=== PATIENT | male | born 1960 | race Caucasian/White ===

== ENCOUNTER 2017-03-10 23:13 | Inpatient (IN) ==
--- OUTSIDE RECORDS SUMMARY | 2017-03-10 23:32 | External Medical Summary ---
:1960 Author Name GENERATED, SYSTEM Care Team Providers Name Role Phone UNASSIGNED DOCTOR MD DON DOCTOR Primary Care Provider [phone] Reason For Visit Reason for Visit from 08/12/2015 7:41 PM:Pt Stated Reason for Adm : injectionReason for Visit from 07/26/2015 7:45 PM:Pt Stated Reason for Adm : Lovenox injection Chief Complaint PE Social History Functional Status Functional Status from 08/14/2015 7:29 PM:LOC : AlertOriented To : Person,Place, Time,EventFunctional Status from 08/14/2015 7:53 AM:LOC : AlertOriented To : Person,Place,Time,EventFunctional Status from 08/13/2015 7:30 PM:LOC : AlertOriented To : Person,Place,Time,EventFunctional Status from 08/13/2015 8:14 AM:LOC : AlertOriented To : Person,Place,TimeFunctional Status from 08/12/2015 7: 45 PM:LOC : AlertOriented To : Person,Place,Time,EventFunctional Status from 7:41 PM:LOC : AlertOriented To : Person,Place,Time,EventFunctional Status from 08/12/2015 7:56 AM:LOC : AlertOriented To : Person,Place,Time, EventFunctional Status from 08/11/2015 7:15 PM:LOC : AlertOriented To : Person, Place,Time,EventFunctional Status from 08/11/2015 7:56 AM:LOC : AlertOriented To : Person,Place,TimeFunctional Status from 08/10/2015 7:35 PM:LOC : AlertOriented To : Person,Place,Time,EventFunctional Status from 08/10/2015 7:50 AM:LOC : AlertOriented To : Person,Place,TimeFunctional Status from 08/09/2015 7:30 PM: LOC : AlertOriented To : Person,Place,Time,EventFunctional Status from 2015 7:54 AM:LOC : AlertOriented To : Person,Place,TimeFunctional Status from 7:44 PM:LOC : AlertOriented To : Person,Place,Time,EventFunctional Status from 08/08/2015 7:52 AM:LOC : AlertOriented To : Person,Place,Time, EventFunctional Status from 08/07/2015 8:01 PM:LOC : AlertOriented To : Person, Place,Time,EventFunctional Status from 08/07/2015 8:02 AM:LOC : AlertOriented To : Person,Place,Time,EventFunctional Status from 08/06/2015 7:30 PM:LOC : AlertOriented To : Person,Place,Time,EventFunctional Status from 08/06/2015 7:56 AM:LOC : AlertOriented To : Person,Place,TimeFunctional Status from 08/05/2015 7: 40 PM:LOC : AlertOriented To : Person,Place,Time,EventFunctional Status from 8:04 AM:LOC : AlertOriented To : Person,Place,TimeFunctional Status from 08/04/2015 7:39 PM:LOC : AlertOriented To : Person,Place,Time, EventFunctional Status from 08/04/2015 7:58 AM:LOC : AlertOriented To : Person, Place,TimeFunctional Status from 08/03/2015 7:27 PM:LOC : AlertOriented To : Person,Place,Time,EventFunctional Status from 08/03/2015 8:03 AM:LOC : AlertOriented To : Person,Place,Time,EventFunctional Status from 08/02/2015 7:45 PM:LOC : AlertOriented To : Person,Place,Time,EventFunctional Status from 2015 7:58 AM:LOC : AlertOriented To : Person,Place,Time,EventFunctional Status from 08/01/2015 7:35 PM:LOC : AlertOriented To : Person,Place,Time, EventFunctional Status from 08/01/2015 7:56 AM:LOC : AlertOriented To : Person, Place,TimeFunctional Status from 07/31/2015 7:48 PM:LOC : AlertOriented To : Person,Place,Time,EventFunctional Status from 07/31/2015 7:58 AM:LOC : AlertOriented To : Person,Place,TimeFunctional Status from 07/30/2015 7:45 PM: LOC : AlertOriented To : Person,Place,Time,EventFunctional Status from 2015 7:55 AM:LOC : AlertOriented To : Person,Place,TimeFunctional Status from 7:55 AM:LOC : AlertOriented To : Person,Place,Time,EventFunctional Status from 07/28/2015 7:38 PM:LOC : AlertOriented To : Person,Place,Time, EventFunctional Status from 07/28/2015 7:59 AM:LOC : AlertOriented To : Person, Place,Time,EventFunctional Status from 07/27/2015 7:44 PM:LOC : AlertOriented To : Person,Place,Time,EventFunctional Status from 07/27/2015 7:50 AM:LOC : AlertOriented To : Person,Place,TimeFunctional Status from 07/26/2015 7:45 PM: LOC : AlertOriented To : Person,Place,Time,Event Vital Signs Hospital Vital Signs from 08/14/2015 7:29 PM:Height : 5/10 ft,inTemperature : 97.8 FPulse : 91Respirations : 18BP : 135/73Hospital Vital Signs from 08/14/2015 7:54 AM:Height : 5/10 ft,inTemperature : 97.6 FPulse : 75Respirations : 16BP : 116/69Hospital Vital Signs from 08/13/2015 7:30 PM:Height : 5/10 ft, inTemperature : 96.7 FPulse : 102Respirations : 18BP : 140/77Hospital Vital Signs from 08/13/2015 8:14 AM:Height : 5/10 ft,inTemperature : 97.5 FPulse : 86Respirations : 18BP : 119/80Hospital Vital Signs from 08/12/2015 7:41 PM: Weight : 175/ lbs,ozHeight : 5/10 ft,inHospital Vital Signs from 08/12/2015 7:38 PM:Height : 5/10 ft,inTemperature : 98.1 FPulse : 79Respirations : 20BP : 127/ 77Hospital Vital Signs from 08/12/2015 7:57 AM:Height : 5/10 ft,inTemperature : 97.3 FPulse : 70Respirations : 18BP : 111/75Hospital Vital Signs from 08/11/2015 7:15 PM:Height : 5/10 ft,inPulse : 99Respirations : 18BP : 121/79Hospital Vital Signs from 08/11/2015 7:56 AM:Height : 5/10 ft,inTemperature : 97.8 FPulse : 66Respirations : 18BP : 117/75Hospital Vital Signs from 08/10/2015 7:35 PM: Height : 5/10 ft,inTemperature : 98.5 FPulse : 82Respirations : 18BP : 116/ 76Hospital Vital Signs from 08/10/2015 7:52 AM:Height : 5/10 ft,inTemperature : 97.3 FPulse : 65Respirations : 18BP : 135/81Hospital Vital Signs from 08/09/2015 7:36 PM:Height : 5/10 ft,inTemperature : 96.8 FPulse : 92Respirations : 18BP : 129/72Hospital Vital Signs from 08/09/2015 7:54 AM:Height : 5/10 ft, inTemperature : 98.3 FPulse : 78Respirations : 18BP : 115/72Hospital Vital Signs from 08/08/2015 7:47 PM:Height : 5/10 ft,inTemperature : 98.3 FPulse : 85Respirations : 16BP : 109/77Hospital Vital Signs from 08/08/2015 7:52 AM: Height : 5/10 ft,inTemperature : 96.9 FPulse : 80Respirations : 18BP : 114/ 69Hospital Vital Signs from 08/07/2015 8:15 PM:Height : 5/10 ft,inTemperature : 98.2 FPulse : 92Respirations : 16BP : 114/64Hospital Vital Signs from 08/07/2015 8:02 AM:Height : 5/10 ft,inTemperature : 97.4 FPulse : 77Respirations : 18BP : 108/74Hospital Vital Signs from 08/06/2015 7:34 PM:Height : 5/10 ft, inTemperature : 98.0 FPulse : 99Respirations : 20BP : 136/82Hospital Vital Signs from 08/06/2015 7:56 AM:Height : 5/10 ft,inTemperature : 97.8 FPulse : 77Respirations : 18BP : 123/79Hospital Vital Signs from 08/05/2015 7:41 PM: Height : 5/10 ft,inTemperature : 96.7 FPulse : 88Respirations : 20BP : 139/ 73Hospital Vital Signs from 08/05/2015 8:04 AM:Height : 5/10 ft,inTemperature : 96.6 FPulse : 76Respirations : 18BP : 118/75Hospital Vital Signs from 08/04/2015 7:39 PM:Height : 5/10 ft,inTemperature : 97.2 FPulse : 94Respirations : 20BP : 136/85Hospital Vital Signs from 08/04/2015 7:57 AM:Height : 5/10 ft, inTemperature : 97.4 FPulse : 68Respirations : 18BP : 135/81Hospital Vital Signs from 08/03/2015 7:25 PM:Height : 5/10 ft,inTemperature : 97.9 FPulse : 90Respirations : 18BP : 116/75Hospital Vital Signs from 08/03/2015 8:04 AM: Height : 5/10 ft,inTemperature : 97.5 FPulse : 63Respirations : 18BP : 120/ 73Hospital Vital Signs from 08/02/2015 7:40 PM:Height : 5/10 ft,inTemperature : 97.9 FPulse : 91Respirations : 18BP : 126/75Hospital Vital Signs from 08/01/2015 7:35 PM:Height : 5/10 ft,inTemperature : 97.5 FPulse : 77Respirations : 18BP : 134/86Hospital Vital Signs from 08/01/2015 7:59 AM:Height : 5/10 ft, inTemperature : 97.4 FPulse : 70Respirations : 18BP : 140/79Hospital Vital Signs from 07/31/2015 7:49 PM:Height : 5/10 ft,inTemperature : 98.0 FPulse : 82Respirations : 18BP : 123/73Hospital Vital Signs from 07/31/2015 8:03 AM: Height : 5/10 ft,inTemperature : 97.9 FPulse : 77Respirations : 18BP : 131/ 74Hospital Vital Signs from 07/30/2015 7:45 PM:Height : 5/10 ft,inTemperature : 97.9 FPulse : 83Respirations : 18BP : 127/81Hospital Vital Signs from 07/30/2015 8:01 AM:Height : 5/10 ft,inTemperature : 97.1 FPulse : 64Respirations : 18BP : 119/74Hospital Vital Signs from 07/29/2015 7:41 PM:Height : 5/10 ft, inTemperature : 97.9 FPulse : 99Respirations : 18BP : 130/75Hospital Vital Signs from 07/29/2015 7:55 AM:Height : 5/10 ft,inTemperature : 97.2 FPulse : 67Respirations : 18BP : 129/85Hospital Vital Signs from 07/28/2015 7:38 PM: Height : 5/10 ft,inTemperature : 96.7 FPulse : 68Respirations : 18BP : 130/ 74Hospital Vital Signs from 07/28/2015 8:00 AM:Height : 5/10 ft,inTemperature : 97.2 FPulse : 87Respirations : 18BP : 127/82Hospital Vital Signs from 07/27/2015 7:50 PM:Height : 5/10 ft,inTemperature : 97.2 FPulse : 95Respirations : 20BP : 136/78Hospital Vital Signs from 07/27/2015 7:50 AM:Height : 5/10 ft, inTemperature : 97.1 FPulse : 87Respirations : 18BP : 134/82Hospital Vital Signs from 07/26/2015 7:45 PM:Weight : 83.9/ kgHeight : 5/10 ft,inHeight : 5/10 ft,inTemperature : 97.8 FPulse : 105Respirations : 18BP : 125/81 Results Problems Encounter Diagnosis No relevant problems exist. Additional Problems Acute Pain Comment:Problem resolved by [facility] upon Discharge, Status: Resolved.Deep Venous Thrombosis Comment:Problem resolved by [facility] upon Discharge, Status:Resolved.Fall Risk Comment:Problem resolved by [facility] upon Discharge, Status:Resolved.Mobility Impairment Comment:Problem resolved by [facility] upon Discharge, Status:Resolved.Tobacco Use Comment :Problem resolved by [facility] upon Discharge, Status:Resolved. Encounters Encounter Diagnosis No relevant problems exist. Plan of Care Procedures No relevant procedures performed. Immunizations No immunizations administered or ordered. Hospital Course Hospital Discharge Instructions Allergies, Adverse Reactions, Alerts Penicillins causes Severe Hives. Onset 1967.No Latex Allergy.No IV Contrast Allergy. Medication Medication reconciliation has not been performed.
--- OUTSIDE RECORDS SUMMARY | 2017-03-10 23:32 | External Medical Summary | Summary of Care ---
:1960 Author Name Jcarlos Shelton, KELLIEP, ,, F Tristan Address Unavailable Unavailable , Care Team Providers Name Role Phone Cordell Villa Unavailable Unavailable Jcarlos Shelton, KELLIEP, ,, F Tristan Unavailable Unavailable Malu Rosales Unavailable Unavailable Unavailable Unavailable Unavailable Functional Status Functional Status Health Issues Name Dates Details Functional status health issues are not documented Status: Cognitive Status Health Issues Name Dates Details Cognitive status health issues are not documented Status: Problems Name Dates Details Cellulitis (682.9, L03.90) Status: Active Pneumonia (486, J18.9) Status: Active Dyspnea (786.09, R06.00) Status: Active Tachycardia (785.0, R00.0) Status: Active History of Creation Of Pericardial Window Status: Resolved Cough with sputum (786.2, R05) Status: Active PAF (paroxysmal atrial fibrillation) (427.31, I48.0) Status: Active Pulmonary embolism (415.19, I26.99) Status: Active History of Pericardial effusion (423.9, I31.3) Status: Resolved Screening for colon cancer (V76.51, Z12.11) Status: Active Dysphagia (787.20, R13.10) Status: Active Voice hoarseness (784.42, R49.0) Status: Active Esophagitis (530.10, K20.9) Status: Active Colon polyps (211.3, K63.5) Status: Active Pancreatic carcinoma (157.9, C25.9) Status: Active Nausea (787.02, R11.0) Status: Active Dehydration (276.51, E86.0) Status: Active Mass of stomach (537.9, K31.9) Status: Active Malignant neoplasm of upper lobe of left lung (162.3, C34.12) Status: Active 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.7, 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) Status: Active Cancer related pain (338.3, G89.3) Status: Active Medications Name Dates Details Metoprolol Tartrate 50 MG Oral Tablet TAKE ONE TABLET BY MOUTH TWICE A DAY ( MORNING AND AT BEDTIME) Quantity: 180 Refills: 3 Tin EricaCordell Start 09-Aug-2016 Active Folic Acid 1 MG Oral Tablet Take 1 tablet daily Quantity: 30 Refills: 5 Jcarlos Shelton, KELLIEP, , , Tristan F Start 28-Dec-2015 Active Dexamethasone 4 MG Oral Tablet one tab po bid day before and day after Alimta treatment Quantity: 30 Refills: 1 Jcarlos Shelton, KELLIEP, , , Tristan F Start 28-Dec-2015 Active Prochlorperazine Maleate 10 MG Oral Tablet 1 tab every 6-8 hours as needed for mild nausea and vomiting Quantity: 30 Refills: 3 Jcarlos Shelton, HEBERT, , , Tristan F Start 29-Dec-2015 Active Ondansetron HCl - 8 MG Oral Tablet 1 tab every 6-8 hours as needed for nausea Quantity: 20 Refills: 3 KELLIE Garber M.D.P, , , Tristan F Start 29-Dec-2015 Active Nitroglycerin 0.4 MG Sublingual Tablet Sublingual PLACE 1 TABLET UNDER THE TONGUE EVERY 5 MINUTES FOR UP TO 3 DOSES NEEDED FOR CHEST PAIN.CALL 911 IF PAIN PERSISTS. Refills: 0 Start 17-Feb-2016 Active Warfarin Sodium 7.5 MG Oral Tablet TAKE 1 TABLET DAILY. Refills: 0 Start 17-Feb-2016 Active PredniSONE 10 MG Oral Tablet TAKE 1 TABLET DAILY. Quantity: 30 Refills: 1 Jcarlos Shelton FACP, , , Tristan F Start 06-Sep-2016 Active OxyCODONE HCl - 15 MG Oral Tablet TAKE 1 TABLET EVERY 4 HOURS NEEDED FOR PAIN. Quantity: 90 Refills: 0 Jcarlos Shelton, KELLIEP, , , Tristan F Start Active Allergies and Adverse Reactions Name Dates Details Penicillins (Allergy) Status: Active Past Medical History Name Dates Details History of Pericardial effusion (423.9, I31.3) Status: Resolved Procedures Procedure Dates Details History of Creation Of Pericardial Window CBC w/ Auto Diff 7150 Ordered: Comprehensive Metabolic Panel 1212 Ordered: CBC w/ Auto Diff 7150 Ordered: CBC w/ Auto Diff 7150 Ordered: Comprehensive Metabolic Panel 1212 Ordered: Immunization Name Dates Details Immunizations not documented Family History Sister Name Dates Details Family history of malignant neoplasm of breast (V16.3, Z80.3) Status: Active Social History Name Dates Details - Status: Smoking Status Name Dates Details Current every day smoker Vital Signs Date Test Result Details 10:45 Temperature 97.9 f Status: Comments: Method: Heart Rate 69 /min Status: Comments: Location: ; Weight 157 lb Status: Physical Findings 99 Status: Comments: O2 Saturation Body Mass Index Calculated 21.29 kg/m2 Status: Body Surface Area Calculated 1.92 m2 Status: 11:39 BP Systolic 124 mm[Hg] Status: Comments: Location: ; Position: BP Diastolic 76 mm[Hg] Status: Comments: Location: ; Position: Temperature 97.7 f Status: Comments: Method: Heart Rate 65 /min Status: Comments: Location: ; Weight 162 lb Status: Body Mass Index Calculated 21.97 kg/m2 Status: Body Surface Area Calculated 1.95 m2 Status: 11:31 BP Systolic 104 mm[Hg] Status: Comments: Location: ; Position: BP Diastolic 69 mm[Hg] Status: Comments: Location: ; Position: Temperature 97.7 f Status: Comments: Method: Heart Rate 64 /min Status: Comments: Location: ; Weight 162 lb Status: Body Mass Index Calculated 21.97 kg/m2 Status: Body Surface Area Calculated 1.95 m2 Status: 09:36 BP Systolic 102 mm[Hg] Status: BP Diastolic 68 mm[Hg] Status: Temperature 98.1 f Status: Comments: Method: Heart Rate 68 /min Status: Comments: Location: ; Results Date Description Value Details 08:34 CBC w/ Auto Diff 7150 WBC 8.7 K/uL Range: 4.5-11.0 RBC 4.90 mil/uL Range: 4.20-5.40 HGB 14.6 g/dL Range: 14.0-18.0 HCT 43.6 % Range: 42.0-53.0 MCV 88.9 fL Range: 80.0-99.0 MCH 29.7 pg Range: 27.3-32.5 MCHC 33.4 % Range: 32.0-36.0 RDW 16.4 % (Above high threshold) Range: 11.6-14.8 PLATELETS 266 K/uL Range: 150-400 MPV 7.2 fL Range: 6.0-11.0 %NEUTRO 73.9 % Range: 37.0-80.0 %LYMPHS 15.1 % Range: 13.0-50.0 %MONO 6.2 % Range: 0.0-12.0 %EOS 2.1 % Range: 0.0-7.0 %BASO 0.6 % Range: 0.0-2.5 %GIOVANNI 2.2 % Range: 0.0-5.0 NEUTRO 6.5 K/uL Range: 2.0-6.9 LYMPHS 1.3 K/uL Range: 0.6-3.4 MONOS 0.5 K/uL Range: 0.0-0.9 EOS 0.2 K/uL Range: 0.0-0.7 BASO 0.1 K/uL Range: 0.0-0.2 08:52 MAGNESIUM 1260 MAGNESIUM 1.9 mg/dL Range: 1.8-2.4 08:52 AMYLASE 1250 AMYLASE 51 U/L Range: 25-115 08:52 Lipase 1275 LIPASE 118 U/L Range: 73-393 08:52 Comprehensive Metabolic Panel 1212 SODIUM 138 mmol/L Range: 133-144 POTASSIUM 3.6 mmol/L Range: 3.5-5.1 CHLORIDE 104 mmol/L Range: 98-110 CARBON DIOXIDE 26.4 mmol/L Range: 23.0-33.0 ANION GAP 8 mmol/L Range: 6-16 BUN 13 mg/dL Range: 7-18 CREATININE, SERUM 0.97 mg/dL Range: 0.70-1.30 BUN:CREATININE RATIO 13 EST GFR, >60 ml/min Range: >60 EST GFR, NON-AFR POLISH >60 ml/min Range: >60 Comments: EST GFR is reported in ml/min per 1.73 m2 of body surface area. ----- GLUCOSE 105 mg/dL (Above high Range: 70-100 threshold) ALK PHOSPHATASE 72 U/L Range: 46-116 TOTAL BILIRUBIN 0.40 mg/dL Range: 0.20-1.00 AST 26 U/L Range: 8-35 ALT 14 U/L (Below low Range: 16-63 threshold) ALBUMIN 3.0 g/dL (Below low Range: 3.4-5.0 threshold) TOTAL PROTEIN 7.4 g/dL Range: 6.4-8.2 A/G RATIO 0.7 units (Below low Range: 1.0-1.8 threshold) CALCIUM 8.8 mg/dL Range: 8.5-10.1 10:03 FREE T4 3604 FREE T4 1.18 ng/dL Range: 0.80-1.67 10:03 THYROID STIM. HORMONE 3602 THYROID STIM. HORMONE 3.730 uIU/mL Range: 0.550-4.780 Comments: No established reference ranges for infants and children &lt ;2 years of age----- 14:01 CBC w/ Auto Diff 7150 Comments: Manual differential indicated. WBC 11.2 K/uL (Above high threshold) Range: 4.5-11.0 RBC 5.02 mil/uL Range: 4.20-5.40 HGB 14.7 g/dL Range: 14.0-18.0 HCT 44.5 % Range: 42.0-53.0 MCV 88.6 fL Range: 80.0-99.0 MCH 29.2 pg Range: 27.3-32.5 MCHC 33.0 % Range: 32.0-36.0 RDW 16.3 % (Above high threshold) Range: 11.6-14.8 PLATELETS 347 K/uL Range: 150-400 MPV 7.0 fL Range: 6.0-11.0 14:07 Manual Differential 7400 SEGS 83 % (Above high threshold) Range: 37-80 BANDS 0 % Range: 0-7 LYMPH 15 % Range: 13-50 MONO 2 % Range: 0-12 EOSIN 0 % Range: 0-7 BASO 0 % Range: 0-3 CODY LYMPH 0 % Range: 0-0 META 0 % Range: 0-0 MYELO 0 % Range: 0-0 PRO 0 % Range: 0-0 BLAST 0 % Range: 0-0 NUC RBC 0 /100 WBC Range: 0-0 SMUDGE 0 /100 WBC PLATELET Adequate Range: Adequate ANISO Slight 13:08 CT NECK/CHEST/ABD/PEL WITH ORAL Comments: Exam Date: 09:56Dictation Date: 10/06/2016 13:08 AND IV CONTRAST XC N/C/AB/PEL 45 MIN 10:51 CBC w/ Auto Diff 7150 Comments: Manual differential indicated. WBC 11.9 K/uL (Above high threshold) Range: 4.5-11.0 RBC 4.92 mil/uL Range: 4.20-5.40 HGB 14.5 g/dL Range: 14.0-18.0 HCT 43.6 % Range: 42.0-53.0 MCV 88.5 fL Range: 80.0-99.0 MCH 29.4 pg Range: 27.3-32.5 MCHC 33.2 % Range: 32.0-36.0 RDW 16.3 % (Above high threshold) Range: 11.6-14.8 PLATELETS 278 K/uL Range: 150-400 MPV 7.0 fL Range: 6.0-11.0 11:13 AMYLASE 1250 AMYLASE 49 U/L Range: 25-115 11:13 Comprehensive Metabolic Panel 1212 SODIUM 139 mmol/L Range: 133-144 POTASSIUM 4.0 mmol/L Range: 3.5-5.1 CHLORIDE 104 mmol/L Range: 98-110 CARBON DIOXIDE 28.3 mmol/L Range: 23.0-33.0 ANION GAP 7 mmol/L Range: 6-16 BUN 10 mg/dL Range: 7-18 CREATININE, SERUM 0.94 mg/dL Range: 0.70-1.30 BUN:CREATININE RATIO 11 EST GFR, >60 ml/min Range: >60 EST GFR, NON-AFR POLISH >60 ml/min Range: >60 Comments: EST GFR is reported in ml/min per 1.73 m2 of body surface area. ----- GLUCOSE 102 mg/dL (Above high Range: 70-100 threshold) ALK PHOSPHATASE 67 U/L Range: 46-116 TOTAL BILIRUBIN 0.50 mg/dL Range: 0.20-1.00 AST 17 U/L Range: 8-35 ALT 13 U/L (Below low Range: 16-63 threshold) ALBUMIN 3.0 g/dL (Below low Range: 3.4-5.0 threshold) TOTAL PROTEIN 7.1 g/dL Range: 6.4-8.2 A/G RATIO 0.7 units (Below low Range: 1.0-1.8 threshold) CALCIUM 9.2 mg/dL Range: 8.5-10.1 11:13 Lipase 1275 LIPASE 82 U/L Range: 73-393 11:17 Manual Differential 7400 SEGS 82 % (Above high threshold) Range: 37-80 BANDS 0 % Range: 0-7 LYMPH 10 % (Below low threshold) Range: 13-50 MONO 2 % Range: 0-12 EOSIN 2 % Range: 0-7 BASO 0 % Range: 0-3 CODY LYMPH 4 % (Above high threshold) Range: 0-0 META 0 % Range: 0-0 MYELO 0 % Range: 0-0 PRO 0 % Range: 0-0 BLAST 0 % Range: 0-0 NUC RBC 0 /100 WBC Range: 0-0 SMUDGE 0 /100 WBC PLATELET Adequate Range: Adequate ANISO Slight 11:38 FREE T4 3604 FREE T4 1.03 ng/dL Range: 0.80-1.67 11:38 THYROID STIM. HORMONE 3602 THYROID STIM. HORMONE 4.447 uIU/mL Range: 0.550-4.780 Comments: No established reference ranges for infants and children &lt ;2 years of age----- 10:25 CBC w/ Auto Diff 7150 Comments: Manual differential indicated. WBC 13.9 K/uL (Above high threshold) Range: 4.5-11.0 RBC 4.83 mil/uL Range: 4.20-5.40 HGB 14.0 g/dL Range: 14.0-18.0 HCT 42.4 % Range: 42.0-53.0 MCV 87.7 fL Range: 80.0-99.0 MCH 29.0 pg Range: 27.3-32.5 MCHC 33.1 % Range: 32.0-36.0 RDW 16.5 % (Above high threshold) Range: 11.6-14.8 PLATELETS 296 K/uL Range: 150-400 MPV 7.2 fL Range: 6.0-11.0 %EOS 0.7 % Range: 0.0-7.0 10:47 Manual Differential 7400 SEGS 93 % (Above high threshold) Range: 37-80 BANDS 0 % Range: 0-7 LYMPH 7 % (Below low threshold) Range: 13-50 MONO 0 % Range: 0-12 EOSIN 0 % Range: 0-7 BASO 0 % Range: 0-3 CODY LYMPH 0 % Range: 0-0 META 0 % Range: 0-0 MYELO 0 % Range: 0-0 PRO 0 % Range: 0-0 BLAST 0 % Range: 0-0 NUC RBC 0 /100 WBC Range: 0-0 SMUDGE 0 /100 WBC PLATELET Adequate Range: Adequate ANISO Slight [id number] 10:44 CBC w/ Auto Diff 7150 Comments: Manual differential indicated. WBC 4.4 K/uL (Below low threshold) Range: 4.5-11.0 RBC 4.55 mil/uL Range: 4.20-5.40 HGB 13.1 g/dL (Below low threshold) Range: 14.0-18.0 HCT 38.9 % (Below low threshold) Range: 42.0-53.0 MCV 85.5 fL Range: 80.0-99.0 MCH 28.8 pg Range: 27.3-32.5 MCHC 33.7 % Range: 32.0-36.0 RDW 16.1 % (Above high threshold) Range: 11.6-14.8 PLATELETS 248 K/uL Range: 150-400 MPV 7.8 fL Range: 6.0-11.0 %EOS 1.0 % Range: 0.0-7.0 10:51 Comprehensive Metabolic Panel 1212 SODIUM 138 mmol/L Range: 133-144 POTASSIUM 3.8 mmol/L Range: 3.5-5.1 CHLORIDE 103 mmol/L Range: 98-110 CARBON DIOXIDE 23.5 mmol/L Range: 23.0-33.0 ANION GAP 12 mmol/L Range: 6-16 BUN 16 mg/dL Range: 7-18 Comments: Variance from previous testing noted.----- CREATININE, SERUM 0.91 mg/dL Range: 0.70-1.30 BUN:CREATININE RATIO 18 EST GFR, >60 ml/min Range: >60 EST GFR, NON-AFR POLISH >60 ml/min Range: >60 Comments: EST GFR is reported in ml/min per 1.73 m2 of body surface area. ----- GLUCOSE 104 mg/dL (Above high Range: 70-100 threshold) ALK PHOSPHATASE 50 U/L Range: 46-116 TOTAL BILIRUBIN 0.80 mg/dL Range: 0.20-1.00 AST 20 U/L Range: 8-35 ALT 13 U/L (Below low Range: 16-63 threshold) ALBUMIN 2.9 g/dL (Below low Range: 3.4-5.0 threshold) TOTAL PROTEIN 6.9 g/dL Range: 6.4-8.2 A/G RATIO 0.7 units (Below low Range: 1.0-1.8 threshold) CALCIUM 8.9 mg/dL Range: 8.5-10.1 Plan of Care Name Dates Details Planned Observations CBC w/ Auto Diff 7150 On Intent Comprehensive Metabolic Panel 1212 On Intent Planned Goals not documented Planned Encounters Appointment; Provider: Poornima العلي M.D. On 19-Feb-2017 10:00 Appointment; Provider: Tristan Garber M.D.|FACP|Cat,KELLIEPMisti,HEBERT, On October-2016 11:30 Interventions Provided Labs/Procedures/ImagingCBC w/ Auto Diff 7150; Done: Oct 16 2016 10:05AMCBC w/ Auto Diff 7150; Done: Oct 23 2016 10:15AM Instructions Name Dates Details Instructions not documented Encounters Appointment; Tristan Garber M.D.|KELLIEP|Cat,KELLIEP|Cat,HEBERT, On Encounter Diagnosis: Problem not documented 10:15 Appointment; Tristan Garber M.D.|FACP|MTreva,FACP|Cat,FACP, On Encounter Diagnosis: Problem not documented 09:45 Appointment; Claire Tipton A.PShirleyRShirleyNShirley On 01-Sep-2016 Encounter Diagnosis: Problem not documented 10:15 Appointment; Claire Tipton A.PShirleyRShirleyNShirley On 25-Aug-2016 Encounter Diagnosis: Problem not documented 13:30 Appointment; Tristan Garber M.D.|FACP|MShirleyDShirley,FACP|Cat,FACP, On 24-Aug-2016 Encounter Diagnosis: Problem not documented 11:00 Appointment; Tristan Garber M.D.|FACP|M.D.,FACP|M.D.,FACP, On 27-Jul-2016 Encounter Diagnosis: Problem not documented 11:00 Appointment; Tristan Garber M.D.|FACP|M.D.,FACP|M.D.,FACP, On 18-Jul-2016 Encounter Diagnosis: Problem not documented 13:15 Appointment; Claudio Ritchie M.D. On 13-Jul-2016 Encounter Diagnosis: Problem not documented 11:30 Appointment; Caridad Kuhn On 13-Jul-2016 Encounter Diagnosis: Problem not documented 11:00 Appointment; Poornima العلي M.D. On 12-Jul-2016 Encounter Diagnosis: Problem not documented 11:30 Appointment; Tristan Garber M.D.|FACP|M.DShirley,FACP|M.D.,FACP, On 06-Jul-2016 Encounter Diagnosis: Problem not documented 15:15 Appointment; Tristan Garber M.D.|FACP|M.D.,FACP|M.D.,FACP, On 12-Jun-2016 Encounter Diagnosis: Problem not documented 15:00 Appointment; Tristan Garber M.D.|FACP|M.D.,FACP|M.D.,FACP, On 16-May-2016 Encounter Diagnosis: Problem not documented 11:00 Appointment; Tristan Garber M.D.|FACP|M.D.,FACP|M.D.,FACP, On 01-May-2016 Encounter Diagnosis: Problem not documented 13:30 Appointment; Tristan Garber M.D.|FACP|M.D.,FACP|M.D.,FACP, On 24-Apr-2016 Encounter Diagnosis: Problem not documented 13:00 Appointment; Tristan Garber M.D.|FACP|M.D.,FACP|M.D.,FACP, On 03-Apr-2016 Encounter Diagnosis: Problem not documented 16:00 Appointment; Tristan Garber M.D.|FACP|M.D.,FACP|M.D.,FACP, On 20-Mar-2016 Encounter Diagnosis: Problem not documented 16:00 Appointment; Tristan Garber M.D.|FACP|M.D.,FACP|M.DShirley,FACP, On 13-Mar-2016 Encounter Diagnosis: Problem not documented 09:30 Appointment; Sarkis Woods M.D. On 08-Mar-2016 Encounter Diagnosis: Problem not documented 09:00 Appointment; Tristan Garber M.D.|FACP|M.D.,FACP|M.DShirley,FACP, On 22-Feb-2016 Encounter Diagnosis: Problem not documented 14:15 Appointment; Poornima العلي M.D. On 21-Feb-2016 Encounter Diagnosis: Problem not documented 10:15 Appointment; Tristan Garber M.D.|FACP|M.D.,FACP|M.DShirley,FACP, On 01-Feb-2016 Encounter Diagnosis: Problem not documented 16:00 Appointment; Tristan Garber M.D.|FACP|M.DShirley,FACP|MShirleyDShirley,FACP, On 11-Jan-2016 Encounter Diagnosis: Problem not documented 10:15 Appointment; Tristan Garber M.D.|FACP|M.D.,FACP|M.D.,FACP, On 28-Dec-2015 Encounter Diagnosis: Problem not documented 09:15 Appointment; Tristan Garber M.D.|FACP|M.D.,FACP|M.D.,FACP, On 13-Dec-2015 Encounter Diagnosis: Problem not documented 13:15 Appointment; Tristan Garber M.D.|FACP|M.D.,FACP|M.DShirley,FACP, On Encounter Diagnosis: Problem not documented 09:00 Appointment; Tristan Garber M.D.|FACP|M.D.,FACP|M.D.,FACP, On Encounter Diagnosis: Problem not documented 11:00"
--- OUTSIDE RECORDS SUMMARY | 2017-03-10 23:33 | External Medical Summary | Summary of Care ---
:1960 Author Name Jcarlos Shelton, KELLIEP, ,, F Tristan Address Unavailable Unavailable , Care Team Providers Name Role Phone Jcarlos Shelton, HEBERT, ,, F Tristan Unavailable Unavailable aMlu Rosales Unavailable Unavailable Unavailable Unavailable Unavailable Functional [...] of Creation Of Pericardial Window Status: Resolved Dehydration (276.51, E86.0) Status: Active Cough with sputum (786.2, R05) Status: Active Malignant neoplasm of upper lobe of left lung (162.3, C34.12) Status: Active 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.7, C79.70) Status: Active PAF (paroxysmal atrial fibrillation) (427.31, I48.0) Status: Active Pulmonary embolism (415.19, I26.99) Status: Active History of Pericardial effusion (423.9, I31.3) Status: Resolved Screening for colon cancer (V76.51, Z12.11) Status: Active Dysphagia (787.20, R13.10) Status: Active Voice hoarseness (784.42, R49.0) Status: Active Mass of stomach (537.9, K31.9) Status: Active Esophagitis (530.10, K20.9) Status: Active Colon polyps (211.3, K63.5) Status: Active Medications Name Dates Details Metoprolol Tartrate 50 MG Oral Tablet TAKE 1 TABLET TWICE DAILY. Refills: 0 Start 28-Dec-2015 Active Folic Acid 1 MG Oral Tablet Take 1 tablet daily Quantity: 30 Refills: 5 Jcarlos Shelton, KELLIEP, , , Tristan F Start 28-Dec-2015 Active Dexamethasone 4 MG Oral Tablet one tab po bid day before and day after Alimta treatment Quantity: 30 Refills: 1 Jcarlos Cat, KELLIEP, , , Tristan F Start 28-Dec-2015 Active Prochlorperazine Maleate 10 MG Oral Tablet 1 tab every 6-8 hours as needed for mild nausea and vomiting Quantity: 30 Refills: 3 Jcarlos SheltonKELLIEP, , , Tristan F Start 29-Dec-2015 Active Ondansetron HCl - 8 MG Oral Tablet 1 tab every 6-8 hours as needed for nausea Quantity: 20 Refills: 3 Jcarlos Shelton, KELLIEP, , , Tristan F Start 29-Dec-2015 Active Nitroglycerin 0.4 MG Sublingual Tablet Sublingual PLACE 1 TABLET UNDER THE TONGUE EVERY 5 MINUTES FOR UP TO 3 DOSES NEEDED FOR CHEST PAIN.CALL 911 IF PAIN PERSISTS. Refills: 0 Start 17-Feb-2016 Active Warfarin Sodium 7.5 MG Oral Tablet TAKE 1 TABLET DAILY. Refills: 0 Start 17-Feb-2016 Active Allergies and Adverse Reactions Name Dates Details Penicillins (Allergy) Status: Active Past Medical History Name Dates Details History of Pericardial effusion (423.9, I31.3) Status: Resolved Procedures Procedure Dates Details History of Creation Of Pericardial Window CBC w/ Auto Diff 7150 Ordered: 06-Jul-2016 CBC w/ Auto Diff 7150 Ordered: 06-Jul-2016 Comprehensive Metabolic Panel 1212 Ordered: 06-Jul-2016 MAGNESIUM 1260 Ordered: 06-Jul-2016 AMYLASE 1250 Ordered: 06-Jul-2016 Lipase 1275 Ordered: 06-Jul-2016 FREE T4 3604 Ordered: 06-Jul-2016 THYROID STIM. HORMONE 3602 Ordered: 06-Jul-2016 CT CHEST/AB/PEL WITH ORAL AND IV CONTRAST Ordered: 06-Jul-2016 Immunization Name Dates Details Immunizations not documented Family History Sister Name Dates Details Family history of malignant neoplasm of breast (V16.3, Z80.3) Status: Active Social History Name Dates Details - Status: Smoking Status Name Dates Details Current every day smoker Vital Signs Date Test Result Details 12-Jul-2016 11:42 BP Systolic 100 mm[Hg] Status: Comments: Location: ; Position: BP Diastolic 68 mm[Hg] Status: Comments: Location: ; Position: Heart Rate 60 /min Status: Comments: Location: ; Weight 164.5 lb Status: Physical Findings 99 Status: Comments: O2 Saturation Body Mass Index Calculated 22.31 kg/m2 Status: Body Surface Area Calculated 1.96 m2 Status: 06-Jul-2016 15:45 BP Systolic 103 mm[Hg] Status: Comments: Location: ; Position: BP Diastolic 58 mm[Hg] Status: Comments: Location: ; Position: Temperature 98.2 f Status: Heart Rate 88 /min Status: Comments: Location: ; Weight 163 lb Status: Body Mass Index Calculated 22.11 kg/m2 Status: Body Surface Area Calculated 1.95 m2 Status: Results Date Description Value Details 19-Jun-2016 10:33 CBC w/ Auto Diff 7150 WBC 9.5 K/uL Range: 4.5-11.0 RBC 4.51 mil/uL Range: 4.20-5.40 HGB 13.8 g/dL (Below low threshold) Range: 14.0-18.0 HCT 41.9 % (Below low threshold) Range: 42.0-53.0 MCV 92.8 fL Range: 80.0-99.0 MCH 30.6 pg Range: 27.3-32.5 MCHC 32.9 % Range: 32.0-36.0 RDW 17.9 % (Above high threshold) Range: 11.6-14.8 PLATELETS 323 K/uL Range: 150-400 MPV 7.2 fL Range: 6.0-11.0 %NEUTRO 75.5 % Range: 37.0-80.0 %LYMPHS 13.9 % Range: 13.0-50.0 %MONO 6.2 % Range: 0.0-12.0 %EOS 2.2 % Range: 0.0-7.0 %BASO 0.5 % Range: 0.0-2.5 %GIOVANNI 1.6 % Range: 0.0-5.0 NEUTRO 7.2 K/uL (Above high threshold) Range: 2.0-6.9 LYMPHS 1.3 K/uL Range: 0.6-3.4 MONOS 0.6 K/uL Range: 0.0-0.9 EOS 0.2 K/uL Range: 0.0-0.7 BASO 0.1 K/uL Range: 0.0-0.2 26-Jun-2016 10:32 CBC w/ Auto Diff 7150 Comments: Manual differential indicated. WBC 10.1 K/uL Range: 4.5-11.0 RBC 4.71 mil/uL Range: 4.20-5.40 HGB 14.0 g/dL Range: 14.0-18.0 HCT 43.4 % Range: 42.0-53.0 MCV 92.1 fL Range: 80.0-99.0 MCH 29.7 pg Range: 27.3-32.5 MCHC 32.2 % Range: 32.0-36.0 RDW 17.3 % (Above high threshold) Range: 11.6-14.8 PLATELETS 287 K/uL Range: 150-400 MPV 6.5 fL Range: 6.0-11.0 10:57 Manual Differential 7400 SEGS 79 % Range: 37-80 BANDS 0 % Range: 0-7 LYMPH 12 % (Below low threshold) Range: 13-50 MONO 7 % Range: 0-12 EOSIN 1 % Range: 0-7 BASO 1 % Range: 0-3 CODY LYMPH 0 % Range: 0-0 META 0 % Range: 0-0 MYELO 0 % Range: 0-0 PRO 0 % Range: 0-0 BLAST 0 % Range: 0-0 NUC RBC 0 /100 WBC Range: 0-0 SMUDGE 0 /100 WBC PLATELET Adequate Range: Adequate ANISO Slight 03-Jul-2016 11:15 CBC w/ Auto Diff 7150 WBC 7.3 K/uL Range: 4.5-11.0 RBC 4.68 mil/uL Range: 4.20-5.40 HGB 14.0 g/dL Range: 14.0-18.0 HCT 43.7 % Range: 42.0-53.0 MCV 93.5 fL Range: 80.0-99.0 MCH 30.0 pg Range: 27.3-32.5 MCHC 32.1 % Range: 32.0-36.0 RDW 18.1 % (Above high threshold) Range: 11.6-14.8 PLATELETS 281 K/uL Range: 150-400 MPV 7.0 fL Range: 6.0-11.0 %NEUTRO 73.0 % Range: 37.0-80.0 %LYMPHS 16.4 % Range: 13.0-50.0 %MONO 5.8 % Range: 0.0-12.0 %EOS 2.1 % Range: 0.0-7.0 %BASO 0.6 % Range: 0.0-2.5 %GIOVANNI 2.0 % Range: 0.0-5.0 NEUTRO 5.3 K/uL Range: 2.0-6.9 LYMPHS 1.2 K/uL Range: 0.6-3.4 MONOS 0.4 K/uL Range: 0.0-0.9 EOS 0.2 K/uL Range: 0.0-0.7 BASO 0.1 K/uL Range: 0.0-0.2 11:44 MAGNESIUM 1260 MAGNESIUM 2.1 mg/dL Range: 1.8-2.4 11:44 Lipase 1275 LIPASE 140 U/L Range: 73-393 11:44 Comprehensive Metabolic Panel 1212 SODIUM 137 mmol/L Range: 133-144 POTASSIUM 3.9 mmol/L Range: 3.5-5.1 CHLORIDE 102 mmol/L Range: 98-110 CARBON DIOXIDE 25.8 mmol/L Range: 23.0-33.0 ANION GAP 9 mmol/L Range: 6-16 BUN 10 mg/dL Range: 7-18 CREATININE, SERUM 0.86 mg/dL Range: 0.70-1.30 BUN:CREATININE RATIO 12 EST GFR, >60 ml/min Range: >60 EST GFR, NON-AFR STATELESS >60 ml/min Range: >60 Comments: EST GFR is reported in ml/min per 1.73 m2 of body surface area. ----- GLUCOSE 107 mg/dL (Above high Range: 70-100 threshold) ALK PHOSPHATASE 75 U/L Range: 46-116 TOTAL BILIRUBIN 0.50 mg/dL Range: 0.20-1.00 AST 20 U/L Range: 8-35 ALT 15 U/L (Below low Range: 16-63 threshold) ALBUMIN 2.9 g/dL (Below low Range: 3.4-5.0 threshold) TOTAL PROTEIN 7.1 g/dL Range: 6.4-8.2 A/G RATIO 0.7 units (Below low Range: 1.0-1.8 threshold) CALCIUM 8.6 mg/dL Range: 8.5-10.1 11:44 AMYLASE 1250 AMYLASE 60 U/L Range: 25-115 12:10 THYROID STIM. HORMONE 3602 THYROID STIM. HORMONE 2.439 uIU/mL Range: 0.550-4.780 Comments: No established reference ranges for infants and children &lt ;2 years of age----- 12:10 FREE T4 3604 FREE T4 1.01 ng/dL Range: 0.80-1.67 10-Jul-2016 10:25 CBC w/ Auto Diff 7150 WBC 10.3 K/uL Range: 4.5-11.0 RBC 4.91 mil/uL Range: 4.20-5.40 HGB 15.0 g/dL Range: 14.0-18.0 HCT 46.6 % Range: 42.0-53.0 MCV 94.9 fL Range: 80.0-99.0 MCH 30.5 pg Range: 27.3-32.5 MCHC 32.2 % Range: 32.0-36.0 RDW 17.8 % (Above high threshold) Range: 11.6-14.8 PLATELETS 349 K/uL Range: 150-400 MPV 7.4 fL Range: 6.0-11.0 %NEUTRO 75.0 % Range: 37.0-80.0 %LYMPHS 15.4 % Range: 13.0-50.0 %MONO 6.5 % Range: 0.0-12.0 %EOS 1.3 % Range: 0.0-7.0 %BASO 0.3 % Range: 0.0-2.5 %GIOVANNI 1.4 % Range: 0.0-5.0 NEUTRO 7.7 K/uL (Above high threshold) Range: 2.0-6.9 LYMPHS 1.6 K/uL Range: 0.6-3.4 MONOS 0.7 K/uL Range: 0.0-0.9 EOS 0.1 K/uL Range: 0.0-0.7 BASO 0.0 K/uL Range: 0.0-0.2 12-Jul-2016 10:52 ECG/ EKG (Specialists) Electro CardioGram 13-Jul-2016 11:43 PROTIME PANEL 7000 PROTIME 13.1 secs Range: 12.0-14.9 INR 1.03 13:04 Colonoscopy- Screening or Dx Colonoscopy Abnormal - With Polyps Plan of Care Name Dates Details Planned Observations CBC w/ Auto Diff 7150 On 24-Jul-2016 Intent Comprehensive Metabolic Panel 1212 On 24-Jul-2016 Intent MAGNESIUM 1260 On 24-Jul-2016 Intent AMYLASE 1250 On 24-Jul-2016 Intent Lipase 1275 On 24-Jul-2016 Intent FREE T4 3604 On 24-Jul-2016 Intent THYROID STIM. HORMONE 3602 On 24-Jul-2016 Intent Planned Goals not documented Planned Encounters Appointment; Provider: Poornima العلي M.D. On 19-Feb-2017 10:00 Appointment; Provider: Tristan Garber M.D.|FACP|MShirleyDShirley,FACP|MTreva,FACP, On Jul-2016 11:00 Appointment; Provider: Schedule Radiology On 24-Jul-2016 08:00 Appointment; Provider: Tristan Garber M.D.|FACP|MShirleyDShirley,FACP|Cat,FACP, On Jul-2016 13:15 Interventions Provided [facility]; To be Done: 06 Jul 2016CB w/ Auto Diff 7150; Done: Jul 10 2016 9:50AM Instructions Name Dates Details Instructions not documented Encounters Appointment; Tristan Garber M.D.|FACP|M.DShirley,FACP|M.DShirley,FACP, On 12-Jun-2016 Encounter Diagnosis: Problem not documented 15:00 Appointment; Tristan Garber M.D.|FACP|M.DShirley,FACP|M.DShirley,FACP, On 16-May-2016 Encounter Diagnosis: Problem not documented 11:00 Appointment; Tristan Garber M.D.|FACP|M.D.,FACP|M.DShirley,FACP, On 01-May-2016 Encounter Diagnosis: Problem not documented 13:30 Appointment; Tristan Garber M.D.|FACP|M.D.,FACP|M.DShirley,FACP, On 24-Apr-2016 Encounter Diagnosis: Problem not documented 13:00 Appointment; Tristan Garber M.D.|FACP|M.DShirley,FACP|M.DShirley,FACP, On 03-Apr-2016 Encounter Diagnosis: Problem not documented 16:00 Appointment; Tristan Garber M.D.|FACP|M.D.,FACP|M.D.,FACP, On 20-Mar-2016 Encounter Diagnosis: Problem not documented 16:00 Appointment; Tristan Garber M.D.|FACP|M.D.,FACP|M.D.,FACP, On 13-Mar-2016 Encounter Diagnosis: Problem not documented 09:30 Appointment; Sarkis Woods M.D. On 08-Mar-2016 Encounter Diagnosis: Problem not documented 09:00 Appointment; Tristan Garber M.D.|FACP|M.D.,FACP|M.D.,FACP, On 22-Feb-2016 Encounter Diagnosis: Problem not documented 14:15 Appointment; Poornima العلي M.D. On 21-Feb-2016 Encounter Diagnosis: Problem not documented 10:15 Appointment; Tristan Garber M.D.|FACP|M.D.,FACP|M.DShirley,FACP, On 01-Feb-2016 Encounter Diagnosis: Problem not documented 16:00 Appointment; Tristan Garber M.D.|FACP|M.D.,FACP|M.D.,FACP, On 11-Jan-2016 Encounter Diagnosis: Problem not documented 10:15 Appointment; Tristan Garber M.D.|FACP|M.D.,FACP|M.D.,FACP, On 28-Dec-2015 Encounter Diagnosis: Problem not documented 09:15 Appointment; Tristan Garber M.D.|FACP|M.D.,FACP|M.D.,FACP, On 13-Dec-2015 Encounter Diagnosis: Problem not documented 13:15 Appointment; Tristan Garber M.D.|FACP|M.D.,FACP|M.D.,FACP, On Encounter Diagnosis: Problem not documented 09:00 Appointment; Tristan Garber M.D.|FACP|M.D.,FACP|M.D.,FACP, On Encounter Diagnosis: Problem not documented 11:00"
--- OUTSIDE RECORDS SUMMARY | 2017-03-10 23:33 | External Medical Summary | Summary of Care ---
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, C79.70) Status: Active Dehydration (276.51, E86.0) Status: Active Nausea (787.02, R11.0) Status: Active Medications Name Dates Details Metoprolol Tartrate 50 MG Oral Tablet TAKE ONE TABLET BY MOUTH TWICE A DAY ( MORNING AND AT BEDTIME) Quantity: 180 Refills: 3 Tin Maldonado Cordell Start 09-Aug-2016 Active Prochlorperazine Maleate 10 MG Oral Tablet 1 tab every 6-8 hours as needed for mild nausea and vomiting Quantity: 30 Refills: 3 Jcarlos Shelton, KELLIEP, , , Tristan F Start 29-Dec-2015 Active Nitroglycerin 0.4 MG Sublingual Tablet Sublingual PLACE 1 TABLET UNDER THE TONGUE EVERY 5 MINUTES FOR UP TO 3 DOSES NEEDED FOR CHEST PAIN.CALL 911 IF PAIN PERSISTS. Refills: 0 Start 17-Feb-2016 Active Warfarin Sodium 7.5 MG Oral Tablet TAKE 1 TABLET DAILY. Refills: 0 Start 17-Feb-2016 Active Ondansetron HCl - 8 MG Oral Tablet 1 tab every 6-8 hours as needed for nausea Quantity: 20 Refills: 3 Jcarlos Shelton, HEBERT, , , Tristan F Start 29-Dec-2015 Active Dexamethasone 4 MG Oral Tablet one tab po bid day before and day after Alimta treatment Quantity: 30 Refills: 1 Jcarlos Shelton, HEBERT, , , Tristan F Start 28-Dec-2015 Active Folic Acid 1 MG Oral Tablet Take 1 tablet daily Quantity: 30 Refills: 5 Jcarlos Shelton, HEBERT, , , Tristan F Start 28-Dec-2015 Active Allergies and Adverse Reactions Name Dates Details Penicillins (Allergy) Status: Active Past Medical History Name Dates Details History of Pericardial effusion (423.9, I31.3) Status: Resolved Procedures Procedure Dates Details History of Creation Of Pericardial Window Comprehensive Metabolic Panel 1212 Ordered: 24-Aug-2016 MAGNESIUM 1260 Ordered: 24-Aug-2016 AMYLASE 1250 Ordered: 24-Aug-2016 Lipase 1275 Ordered: 24-Aug-2016 CBC w/ Auto Diff 7150 Ordered: 24-Aug-2016 CBC w/ Auto Diff 7150 Ordered: 24-Aug-2016 CBC w/ Auto Diff 7150 Ordered: 24-Aug-2016 CBC w/ Auto Diff 7150 Ordered: 24-Aug-2016 CBC w/ Auto Diff 7150 Ordered: 24-Aug-2016 THYROID STIM. HORMONE 3602 Ordered: 24-Aug-2016 FREE T4 3604 Ordered: 24-Aug-2016 MRI ABDOMEN WITHOUT AND WITH CONTRAST WITH MRCP Ordered: 24-Jul-2016 Immunization Name Dates Details Immunizations not documented Family History Sister Name Dates Details Family history of malignant neoplasm of breast (V16.3, Z80.3) Status: Active Social History Name Dates Details - Status: Smoking Status Name Dates Details Current every day smoker Vital Signs Date Test Result Details 24-Aug-2016 10:46 BP Systolic 114 mm[Hg] Status: Comments: Location: ; Position: BP Diastolic 94 mm[Hg] Status: Comments: Location: ; Position: Temperature 96.6 f Status: Comments: Method: Heart Rate 68 /min Status: Comments: Location: ; Weight 166 lb Status: Body Mass Index Calculated 22.51 kg/m2 Status: Body Surface Area Calculated 1.97 m2 Status: 27-Jul-2016 10:55 BP Systolic 96 mm[Hg] Status: Comments: Location: ; Position: BP Diastolic 52 mm[Hg] Status: Comments: Location: ; Position: Temperature 97.7 f Status: Comments: Method: Heart Rate 70 /min Status: Comments: Location: ; Weight 168 lb Status: Body Mass Index Calculated 22.79 kg/m2 Status: Body Surface Area Calculated 1.98 m2 Status: Results Date Description Value Details 31-Jul-2016 11:24 CBC w/ Auto Diff 7150 WBC 10.0 K/uL Range: 4.5-11.0 RBC 5.11 mil/uL Range: 4.20-5.40 HGB 15.6 g/dL Range: 14.0-18.0 HCT 48.1 % Range: 42.0-53.0 MCV 94.0 fL Range: 80.0-99.0 MCH 30.4 pg Range: 27.3-32.5 MCHC 32.4 % Range: 32.0-36.0 RDW 17.1 % (Above high threshold) Range: 11.6-14.8 PLATELETS 269 K/uL Range: 150-400 MPV 7.2 fL Range: 6.0-11.0 %NEUTRO 74.0 % Range: 37.0-80.0 %LYMPHS 16.2 % Range: 13.0-50.0 %MONO 5.6 % Range: 0.0-12.0 %EOS 2.2 % Range: 0.0-7.0 %BASO 0.4 % Range: 0.0-2.5 %GIOVANNI 1.7 % Range: 0.0-5.0 NEUTRO 7.4 K/uL (Above high threshold) Range: 2.0-6.9 LYMPHS 1.6 K/uL Range: 0.6-3.4 MONOS 0.6 K/uL Range: 0.0-0.9 EOS 0.2 K/uL Range: 0.0-0.7 BASO 0.0 K/uL Range: 0.0-0.2 07-Aug-2016 10:35 CBC w/ Auto Diff 7150 Comments: Manual differential indicated. WBC 9.7 K/uL Range: 4.5-11.0 RBC 5.04 mil/uL Range: 4.20-5.40 HGB 15.1 g/dL Range: 14.0-18.0 HCT 46.5 % Range: 42.0-53.0 MCV 92.3 fL Range: 80.0-99.0 MCH 30.0 pg Range: 27.3-32.5 MCHC 32.5 % Range: 32.0-36.0 RDW 16.8 % (Above high Range: 11.6-14.8 threshold) PLATELETS 270 K/uL Range: 150-400 MPV 7.5 fL Range: 6.0-11.0 11:01 X PRE SCREENING MRI Comments: Exam Date: 08/07/2016 10:47Dictation Date: 08/07/2016 11:01 11:07 Manual Differential 7400 SEGS 86 % (Above high threshold) Range: 37-80 BANDS 0 % Range: 0-7 LYMPH 11 % (Below low threshold) Range: 13-50 MONO 3 % Range: 0-12 EOSIN 0 % Range: 0-7 BASO 0 % Range: 0-3 CODY LYMPH 0 % Range: 0-0 META 0 % Range: 0-0 MYELO 0 % Range: 0-0 PRO 0 % Range: 0-0 BLAST 0 % Range: 0-0 NUC RBC 0 /100 WBC Range: 0-0 SMUDGE 0 /100 WBC PLATELET Adequate Range: Adequate ANISO Slight 08-Aug-2016 10:29 MRI ABDOMEN WITHOUT AND WITH Comments: Exam Date: 2016 10:47Dictation Date: 08/08/2016 10:29 CONTRAST WITH MRCP XMR ABDOMEN W MRCP 14-Aug-2016 13:15 CBC w/ Auto Diff 7150 WBC 9.8 K/uL Range: 4.5-11.0 RBC 5.42 mil/uL (Above high threshold) Range: 4.20-5.40 HGB 16.2 g/dL Range: 14.0-18.0 HCT 50.1 % Range: 42.0-53.0 MCV 92.6 fL Range: 80.0-99.0 MCH 30.0 pg Range: 27.3-32.5 MCHC 32.4 % Range: 32.0-36.0 RDW 16.5 % (Above high threshold) Range: 11.6-14.8 PLATELETS 314 K/uL Range: 150-400 MPV 7.2 fL Range: 6.0-11.0 %NEUTRO 74.5 % Range: 37.0-80.0 %LYMPHS 16.5 % Range: 13.0-50.0 %MONO 4.5 % Range: 0.0-12.0 %EOS 1.8 % Range: 0.0-7.0 %BASO 0.6 % Range: 0.0-2.5 %GIOVANNI 2.1 % Range: 0.0-5.0 NEUTRO 7.3 K/uL (Above high threshold) Range: 2.0-6.9 LYMPHS 1.6 K/uL Range: 0.6-3.4 MONOS 0.4 K/uL Range: 0.0-0.9 EOS 0.2 K/uL Range: 0.0-0.7 BASO 0.1 K/uL Range: 0.0-0.2 21-Aug-2016 09:58 CBC w/ Auto Diff 7150 WBC 8.8 K/uL Range: 4.5-11.0 RBC 4.86 mil/uL Range: 4.20-5.40 HGB 15.0 g/dL Range: 14.0-18.0 HCT 44.4 % Range: 42.0-53.0 MCV 91.3 fL Range: 80.0-99.0 MCH 30.9 pg Range: 27.3-32.5 MCHC 33.8 % Range: 32.0-36.0 RDW 16.7 % (Above high threshold) Range: 11.6-14.8 PLATELETS 262 K/uL Range: 150-400 MPV 7.5 fL Range: 6.0-11.0 %NEUTRO 71.6 % Range: 37.0-80.0 %LYMPHS 16.4 % Range: 13.0-50.0 %MONO 6.6 % Range: 0.0-12.0 %EOS 3.7 % Range: 0.0-7.0 %BASO 0.4 % Range: 0.0-2.5 %GIOVANNI 1.3 % Range: 0.0-5.0 NEUTRO 6.3 K/uL Range: 2.0-6.9 LYMPHS 1.4 K/uL Range: 0.6-3.4 MONOS 0.6 K/uL Range: 0.0-0.9 EOS 0.3 K/uL Range: 0.0-0.7 BASO 0.0 K/uL Range: 0.0-0.2 10:16 Lipase 1275 LIPASE 146 U/L Range: 73-393 10:16 Comprehensive Metabolic Panel 1212 SODIUM 139 mmol/L Range: 133-144 POTASSIUM 4.0 mmol/L Range: 3.5-5.1 CHLORIDE 104 mmol/L Range: 98-110 CARBON DIOXIDE 26.7 mmol/L Range: 23.0-33.0 ANION GAP 8 mmol/L Range: 6-16 BUN 13 mg/dL Range: 7-18 CREATININE, SERUM 0.88 mg/dL Range: 0.70-1.30 BUN:CREATININE RATIO 15 EST GFR, >60 ml/min Range: >60 EST GFR, NON-AFR [place]DIAN >60 ml/min Range: >60 Comments: EST GFR is reported in ml/min per 1.73 m2 of body surface area. ----- GLUCOSE 98 mg/dL Range: 70-100 ALK PHOSPHATASE 71 U/L Range: 46-116 TOTAL BILIRUBIN 0.30 mg/dL Range: 0.20-1.00 AST 18 U/L Range: 8-35 ALT 16 U/L Range: 16-63 ALBUMIN 2.8 g/dL (Below low Range: 3.4-5.0 threshold) TOTAL PROTEIN 7.0 g/dL Range: 6.4-8.2 A/G RATIO 0.7 units (Below low Range: 1.0-1.8 threshold) CALCIUM 8.6 mg/dL Range: 8.5-10.1 10:16 AMYLASE 1250 AMYLASE 55 U/L Range: 25-115 10:25 THYROID STIM. HORMONE 3602 THYROID STIM. HORMONE 4.092 uIU/mL Range: 0.550-4.780 Comments: No established reference ranges for infants and children &lt ;2 years of age----- 10:25 FREE T4 3604 FREE T4 1.06 ng/dL Range: 0.80-1.67 22-Aug-2016 08:18 Carbohydrate Antigen 19-9 [id number] Comments: Testing performed at: [DA] [facility], [address] [place] [address], [place], [address], , [employer]: KOURTNEY Wallace MD [place] 19-9 1 U/mL Range: 0-35 Comments: Jaquelin ECLIA methodology----- Plan of Care Name Dates Details Planned Observations Planned Goals not documented Planned Encounters Appointment; Provider: Poornima العلي M.D. On 19-Feb-2017 10:00 Appointment; Provider: Tristan Garber M.D.|FACP|Cat,KELLIEP|Cat,HEBERT, On September-2016 11:15 Instructions Name Dates Details Instructions not documented Encounters Appointment; Tristan Garber M.D.|FACP|Cat,FACP|Cat,HEBERT, On 24-Aug-2016 Encounter Diagnosis: Problem not documented 11:00 Appointment; Tristan Garber M.D.|FACP|MTreva,FACP|Cat,FACP, On 27-Jul-2016 Encounter Diagnosis: Problem not documented 11:00 Appointment; Tristan Garber M.D.|FACP|M.DShirley,FACP|Cat,FACP, On 18-Jul-2016 Encounter Diagnosis: Problem not documented 13:15 Appointment; Claudio Ritchie M.D. On 13-Jul-2016 Encounter Diagnosis: Problem not documented 11:30 Appointment; Caridad Kuhn On 13-Jul-2016 Encounter Diagnosis: Problem not documented 11:00 Appointment; Poornima العلي M.D. On 12-Jul-2016 Encounter Diagnosis: Problem not documented 11:30 Appointment; Tristan Garber M.D.|FACP|M.D.,FACP|M.D.,FACP, On 06-Jul-2016 Encounter Diagnosis: Problem not documented 15:15 Appointment; Tristan Garber M.D.|FACP|M.D.,FACP|M.D.,FACP, On 12-Jun-2016 Encounter Diagnosis: Problem not documented 15:00 Appointment; Tristan Garber M.D.|FACP|M.D.,FACP|M.D.,FACP, On 16-May-2016 Encounter Diagnosis: Problem not documented 11:00 Appointment; Tristan Garber M.D.|FACP|M.DShirley,FACP|MShirleyDShirley,FACP, On 01-May-2016 Encounter Diagnosis: Problem not documented 13:30 Appointment; Tristan Garber M.D.|FACP|M.DShirley,FACP|MShirleyDShirley,FACP, On 24-Apr-2016 Encounter Diagnosis: Problem not documented 13:00 Appointment; Tristan Garber M.D.|FACP|M.D.,FACP|M.D.,FACP, On 03-Apr-2016 Encounter Diagnosis: Problem not documented 16:00 Appointment; Tristan Garber M.D.|FACP|M.DShirley,FACP|M.DShirley,FACP, On 20-Mar-2016 Encounter Diagnosis: Problem not documented 16:00 Appointment; Tristan Garber M.D.|FACP|M.D.,FACP|M.DShirley,FACP, On 13-Mar-2016 Encounter Diagnosis: Problem not documented 09:30 Appointment; Sarkis Woods M.D. On 08-Mar-2016 Encounter Diagnosis: Problem not documented 09:00 Appointment; Tristan Garber M.D.|FACP|M.D.,FACP|M.DShirley,FACP, On 22-Feb-2016 Encounter Diagnosis: Problem not documented 14:15 Appointment; Poornima العلي M.D. On 21-Feb-2016 Encounter Diagnosis: Problem not documented 10:15 Appointment; Tristan Garber M.D.|FACP|M.D.,FACP|M.D.,KELLIEP, On 01-Feb-2016 Encounter Diagnosis: Problem not documented 16:00 Appointment; Tristan Garber M.D.|FACP|Cat,KELLIEP|Cat,HEBERT, On 11-Jan-2016 Encounter Diagnosis: Problem not documented 10:15 Appointment; Tristan Garber M.D.|FACP|Cat,FACP|Cat,KELLIEP, On 28-Dec-2015 Encounter Diagnosis: Problem not documented 09:15 Appointment; Tristan Garber M.D.|KELLIEPMisti,FACP|Cat,KELLIEP, On 13-Dec-2015 Encounter Diagnosis: Problem not documented 13:15 Appointment; Tristan Garber M.D.|FACPMisti,FACP|Cat,HEBERT, On Encounter Diagnosis: Problem not documented 09:00 Appointment; Tristan Garber M.D.|FACPMisti,FACP|Cat,KELLIEP, On Encounter Diagnosis: Problem not documented 11:00"
--- OUTSIDE RECORDS SUMMARY | 2017-03-10 23:33 | External Medical Summary ---
:1960 Author Name GENERATED, SYSTEM Care Team Providers Name Role Phone MD ROSALES CLARICE Primary Care Provider [phone] Reason For Visit Reason for Visit from 02/13/2016 11:26 PM:Pt Stated Reason for Adm : CP, Hypotension Chief Complaint CP LOW BP Social History Social History from 02/14/2016 1:57 PM:Tobacco Use? : Current Some Day SmokerSocial History from 02/13/2016 11:26 PM:Tobacco Use? : Current Some Day Smoker Functional Status Functional Status from 02/14/2016 2:56 PM:# Assists : IndependentFunctional Status from 02/14/2016 8:14 AM:LOC : AlertOriented To : Person,Place,Time, EventWeight Bearing Status : FullAssist Level : Partial# Assists : 1Functional Status from 02/13/2016 11:26 PM:LOC : AlertOriented To : Person,Place,Time, EventWeight Bearing Status : FullAssist Level : Partial# Assists : 1 Vital Signs Hospital Vital Signs from 02/14/2016 11:08 AM:Height : 5/11 ft,inTemperature : 96.9 FPulse : 84Respirations : 20BP : 100/58Hospital Vital Signs from 2015 9:37 AM:Height : 5/11 ft,inHospital Vital Signs from 02/14/2016 7:43 AM: Height : 5/11 ft,inTemperature : 97.4 FPulse : 78Respirations : 20BP : 98/ 54Hospital Vital Signs from 02/14/2016 1:35 AM:Height : 5/11 ft,inTemperature : 97.7 FPulse : 89Respirations : 20BP : 92/53Hospital Vital Signs from 02/13/2016 11:26 PM:Weight : 64.7/ kgHeight : 5/11 ft,inHospital Vital Signs from 2015 10:40 PM:Weight : 64.7/ kgHeight : 5/11 ft,inTemperature : 97.6 FPulse : 94Respirations : 20BP : 104/36 Results Chemistry from 02/14/2016 9:19 AMUR ALCOHOLNEGATIVE GM/DL *COCAINENEGATIVE (NEG <150 ) *PCPNEGATIVE (NEG <25 ) *CANNABINOIDSNEGATIVE (NEG <50 ) *BENZODIAZEINENEGATIVE (NEG <200 ) *AMPHETAMINENEGATIVE (NEG <500 ) *BARBITURATESNEGATIVE (NEG <200 ) *OPIATESNEGATIVE (NEG <300 )Chemistry from 02/14/2016 8:45 AMTROPONIN-I< 0.017 NG/ML (0.000-0.056 NG/ML)Chemistry from 02/14/2016 4:08 AMTROPONIN-I< 0.017 NG/ML (0.000-0.056 NG/ML) [id number] MG/DL (50-199 MG/DL) [id number] MG/DL (0-149 MG/DL) HDL [id number] MG/DL (40-60 MG/DL) *LDL (CALCULATED) CHOL56 MG/DL (0-99 MG/DL)Chemistry from 02/14/2016 12:57 AMTROPONIN-I<0.017 NG/ML (0.000-0.056 NG/ML)Coagulation from 02/14/2016 8:45 AM*PROTHROMBIN TIME13.0 SECONDS H (9.4-11.5 SECONDS) *INR1.3 H (0.9-1.1 ) Problems Encounter Diagnosis No relevant problems exist. Additional Problems Acute Pain Comment:Problem resolved by [facility] Workflow upon Discharge, Status: Resolved.Acute Pain Comment:Problem resolved by [facility] Work[facility] upon Discharge , Status:Resolved.Acute Pain Comment:Problem resolved by [facility] Work[facility] upon Discharge, Status:Resolved.Atrial Fibrillation Comment:Problem resolved by [facility] Work[facility] upon Discharge, Status:Resolved.Benign Essential Hypertension Comment:Problem resolved by [facility] Work[facility] upon Discharge, Status: Resolved.Cellulitis of Trunk Comment:Problem resolved by [facility] Workflow upon Discharge, Status:Resolved.Deep Venous Thrombosis Comment:Problem resolved by [facility] Work[facility] upon Discharge, Status:Resolved.Deep Venous Thrombosis of Upper Extremity Comment:Problem resolved by [facility] Workflow upon Discharge, Status:Resolved.Fall Risk Comment:Problem resolved by [facility] Workflow upon Discharge, Status:Resolved.Fall Risk Comment:Problem resolved by [facility] Workflow upon Discharge, Status:Resolved.History of Deep Vein Thrombosis Comment :Problem resolved by [facility] Work[facility] upon Discharge, Status:Resolved.History of Pulmonary Embolus Comment:Problem resolved by [facility] Work[facility] upon Discharge , Status:Resolved.Infection Risk Comment:Problem resolved by [facility] Workflow upon Discharge, Status:Resolved.Infection Risk Comment:Problem resolved by [facility] Workflow upon Discharge, Status:Resolved.Infection Risk Comment:Problem resolved by [facility] Workflow upon Discharge, Status:Resolved.Malignant Tumor of Lung Comment:Problem resolved by [facility] Workflow upon Discharge, Status: Resolved.Mobility Impairment Comment:Problem resolved by [facility] Workflow upon Discharge, Status:Resolved.Mobility Impairment Comment:Problem resolved by [facility] Workflow upon Discharge, Status:Resolved.Non-Small Cell Lung Cancer Comment:Problem resolved by [facility] Work[facility] upon Discharge, Status:Resolved.Non -Small Cell Lung Cancer Comment:Problem resolved by [facility] Workflow upon Discharge, Status:Resolved.Nutritional Deficiency Comment:Problem resolved by [facility] Work[facility] upon Discharge, Status:Resolved.Skin Integrity Impairment Risk Comment:Problem resolved by [facility] Work[facility] upon Discharge, Status: Resolved.Supraventricular Tachycardia Comment:Problem resolved by [facility] Workflow upon Discharge, Status:Resolved.Thrombocytosis Comment:Problem resolved by [facility] Work[facility] upon Discharge, Status:Resolved.Tobacco Use Comment :Problem resolved by [facility] Work[facility] upon Discharge, Status:Resolved. Encounters Encounter Diagnosis No relevant problems exist. Plan of Care Follow-up Appointments from 02/14/2016 1:57 PM:#1 Office appointment: : Daily INR#1 Date/Time : 02/14/2016 8:00 AMAddress # 1 : [facility]: [address], [place], [place] - #2 Office appointment: : Dr. العلي with EKG#2 Date/Time : 02/21/2016 10:15 AMAddress # 2 : [facility]: [address], [place]- or #3 Office appointment : : Dr. Garber#3 Date/Time : 02/17/2016 10:00 AMAddress # 3 : [facility] : [address] [place]- or #4 Office appointment: : Dr. Rosales#4 Date/Time : 02/18/2016 1:00 PMAddress # 4 : [facility]: [address] [place] - [phone] Plan from 02/14/2016 1:43 PM:Care Management Note : Patient was admitted as observation d/t chest pain. Troponin's were negative.Patient was placed on tele, cardio was consulted, and completed a stress test. Stress test was negative, and patient was cleared for discharge. Patient will be dismissed later today. Procedures Completed Procedure Code: [id number] Procedure Name: not valued, on 12/19/2015 10: 46 AMCompleted Procedure Code: [id number] Procedure Name: not valued, on 12/19/2015 10:38 AMCompleted Procedure Code: [id number] Procedure Name: not valued, on 2015 12:00 AMCompleted Procedure Code: [id number] Procedure Name: not valued, on 12:00 AM Immunizations No immunizations administered or ordered. Hospital Course Hospital Discharge Instructions How to care for yourself at home from 02/14/2016 1:57 PM:Discharge Activity : Activity as toleratedDischarge Diet : Modification as given by physicianDischarge Diet: : low fat, low cholesterolCall your doctor if: : Fever over 101 F or severe chills,Chest pain or other unexplained symptoms,Tingling or numbness develops,A sudden increase or decrease in weight,You have persistent or worsening symptoms,If you have Heart Failure and you gain 3 pounds within 1 week or your symptoms worsen. (Weigh at home tomorrow morning) Specific Discharge Teaching Instructions provided: : NoDischarge on Warfarin : YesAppointment for INR : 11 Allergies, Adverse Reactions, Alerts Penicillins causes Severe Hives. Onset 1967.No Latex Allergy.No IV Contrast Allergy.No Known Food Allergies. Medication It is the responsibility of the patient or patient sales representative printing supplies to confirm the list of medicationswith either the patient's personal care provider or the patient's follow-up care provider to ensure the patient has an appropriate list of medications to take at home. Discharge medicationsContinued medicationsfoLIC Acid 1 mg Tablet, Ordered By: GREY HAGAN APRN Directions: 1 tablet oral daily dexamethasone 4 mg Tablet, Ordered By: GREY HAGAN APRN Directions: 1 tablet oral as directed Additional Instructions: Take 1 tablet twice daily the day before and day afterAlimta treatment nitroglycerin (Nitrostat) 0.4 mg Tablet, Sublingual, Ordered By: GREY HAGAN APRN Directions: 1 tab SL Q5min up to 3 times for chest pain sublingual as directed for CHEST PAIN ondansetron 8 mg tablet,disintegrating, Ordered By: GREY HAGAN APRN Directions: 1 tablet oral every six hours PRN nausea or vomiting prochlorperazine maleate 10 mg Tablet, Ordered By: GREY HAGAN APRN Directions: 1 tablet oral every six hours PRN nausea or vomiting warfarin (Coumadin) 7.5 mg Tablet, Ordered By: GREY HAGAN APRN Directions: 1 tablet oral daily Changed medicationsenoxaparin (Lovenox) 80 mg/0.8 mL Syringe, Ordered By: GREY HAGAN APRN Directions: 65 mg subcutaneous every twelve hours metoprolol tartrate 50 mg Tablet, Ordered By: MARY TRAYLOR Directions: 1 tablet oral twice a day every morning and at bedtime Stopped medicationsNone
--- OUTSIDE RECORDS SUMMARY | 2017-03-10 23:33 | External Medical Summary | Summary of Care ---
:1960 Author Name Mio Tipton APRNine Address [address] Unavailable [place], [place] [id number] Care Team Providers Name Role Phone Jcarlos Shelton, FACP, ,, F Tristan Unavailable Unavailable Malu Rosales Unavailable Unavailable Unavailable Unavailable Unavailable Functional Status Functional Status Health Issues Name Dates Details Functional status health issues are not documented Status: Cognitive Status Health Issues Name Dates Details Cognitive status health issues are not documented Status: Problems Name Dates Details Cellulitis (682.9, L03.90) Status: Active Pneumonia (486, J18.9) Status: Active Lung cancer (162.9, C34.90) Status: Active Pulmonary embolism (415.19, I26.99) Status: Active Dyspnea (786.09, R06.00) Status: Active Medications Name Dates Details Nicotine 7 MG/24HR Transdermal Patch 24 Hour APPLY 1 PATCH DAILY DIRECTED. Refills: 0 Jcarlos M.Janak., FACP, , , Tristan F Start 28-Dec-2015 Active Oxycodone-Acetaminophen 10-325 MG Oral Tablet TAKE 1 TABLET 4 TIMES DAILY NEEDED FOR PAIN. Refills: 0 Jcarlos M.D., FACP, , , Tristan F Start 28-Dec-2015 Active Potassium Chloride Nehal ER 20 MEQ Oral Tablet Extended Release TAKE 1 TABLET DAILY. Refills: 0 Jcarlos M.Janak., FACP, , , Tristan F Start 28-Dec-2015 Active Metoprolol Tartrate 25 MG Oral Tablet TAKE 1 TABLET TWICE DAILY. Refills: 0 Roxannphan M.D., FACP, , , Tristan F Start 28-Dec-2015 Active Pradaxa 150 MG Oral Capsule TAKE 1 CAPSULE TWICE DAILY. Refills: 0 Roxannphan M.D., FACP, , , Tristan F Start 28-Dec-2015 Active Mouthwash-AF Oral Liquid Refills: 0 Roxannphan M.D., FACP, , , Tristan F Start 28-Dec-2015 Active Folic Acid 1 MG Oral Tablet Take 1 tablet daily Quantity: 30 Refills: 5 Estephan M.D., KELLIEP, , , Tristan F Start 28-Dec-2015 Active Dexamethasone 4 MG Oral Tablet one tab po bid day before and day after Alimta treatment Quantity: 30 Refills: 1 Jcarlos Shelton, FACP, , , Tristan F Start 28-Dec-2015 Active [...] , , Tristan F Start 29-Dec-2015 Active Allergies and Adverse Reactions Name Dates Details Penicillins (Allergy) Status: Active Procedures Procedure Dates Details PROTIME PANEL 7000 Ordered: 13-Dec-2015 CBC w/ Auto Diff 7150 Ordered: 28-Dec-2015 MAGNESIUM 1260 Ordered: 28-Dec-2015 CBC w/ Auto Diff 7150 Ordered: 11-Jan-2016 MAGNESIUM 1260 Ordered: 11-Jan-2016 CBC w/ Auto Diff 7150 Ordered: 11-Jan-2016 MAGNESIUM 1260 Ordered: 11-Jan-2016 MAGNESIUM 1260 Ordered: 11-Jan-2016 CBC w/ Auto Diff 7150 Ordered: 11-Jan-2016 Comprehensive Metabolic Panel 1212 Ordered: 11-Jan-2016 CT HEAD WITHOUT AND WITH IV CONTRAST Ordered: 13-Dec-2015 CT NECK/CHEST/AB WITH ORAL AND IV CONTRAST Ordered: 13-Dec-2015 BONE SCAN WHOLE BODY Ordered: 13-Dec-2015 Immunization Name Dates Details Immunizations not documented Social History Smoking Status Name Dates Details Unknown if ever smoked Vital Signs Date Test Result Details 11-Jan-2016 11:18 BP Systolic 89 mm[Hg] Status: Comments: Location: ; Position: BP Diastolic 58 mm[Hg] Status: Comments: Location: ; Position: Temperature 97.5 f Status: Comments: Method: Heart Rate 80 /min Status: Comments: Location: ; Weight 150 lb Status: Body Mass Index Calculated 20.34 kg/m2 Status: Body Surface Area Calculated 1.89 m2 Status: 28-Dec-2015 09:34 BP Systolic 90 mm[Hg] Status: Comments: Location: ; Position: BP Diastolic 43 mm[Hg] Status: Comments: Location: ; Position: Temperature 97.5 f Status: Comments: Method: Heart Rate 81 /min Status: Comments: Location: ; Weight 150 lb Status: Body Mass Index Calculated 20.34 kg/m2 Status: Body Surface Area Calculated 1.89 m2 Status: 13-Dec-2015 13:15 BP Systolic 114 mm[Hg] Status: Comments: Location: ; Position: BP Diastolic 73 mm[Hg] Status: Comments: Location: ; Position: Temperature 97.7 f Status: Comments: Method: Heart Rate 81 /min Status: Comments: Location: ; Weight 161 lb Status: Body Mass Index Calculated 21.84 kg/m2 Status: Body Surface Area Calculated 1.94 m2 Status: Results Date Description Value Details 13-Dec-2015 14:00 CBC w/ Auto Diff 7150 Comments: Manual differential indicated. WBC 6.1 K/uL Range: 4.5-11.0 RBC 4.23 mil/uL Range: 4.20-5.40 HGB 12.0 g/dL (Below low threshold) Range: 14.0-18.0 HCT 37.2 % (Below low threshold) Range: 42.0-53.0 MCV 87.9 fL Range: 80.0-99.0 MCH 28.3 pg Range: 27.3-32.5 MCHC 32.2 % Range: 32.0-36.0 RDW 15.9 % (Above high threshold) Range: 11.6-14.8 PLATELETS 273 K/uL Range: 150-400 MPV 8.3 fL Range: 6.0-11.0 14:13 PROTIME PANEL 7000 PROTIME 18.0 secs (Above high threshold) Range: 12.0-14.9 INR 1.49 14:27 Manual Differential 7400 SEGS 84 % (Above high threshold) Range: 37-80 BANDS 2 % Range: 0-7 LYMPH 6 % (Below low threshold) Range: 13-50 MONO 7 % Range: 0-12 EOSIN 1 % Range: 0-7 BASO 0 % Range: 0-3 CODY LYMPH 0 % Range: 0-0 META 0 % Range: 0-0 MYELO 0 % Range: 0-0 PRO 0 % Range: 0-0 BLAST 0 % Range: 0-0 NUC RBC 0 /100 WBC Range: 0-0 SMUDGE 0 /100 WBC PLATELET Adequate Range: Adequate 14:30 Comprehensive Metabolic Panel 1212 SODIUM 140 mmol/L Range: 133-144 POTASSIUM 3.6 mmol/L Range: 3.5-5.1 CHLORIDE 102 mmol/L Range: 98-110 CARBON DIOXIDE 28.7 mmol/L Range: 23.0-33.0 ANION GAP 9 mmol/L Range: 6-16 BUN 11 mg/dL Range: 7-18 CREATININE, SERUM 0.99 mg/dL Range: 0.70-1.30 Comments: Please note new reference ranges effective 2014.----- BUN:CREATININE RATIO 11 EST GFR, >60 ml/min Range: >60 EST GFR, NON-AFR BOLIVIAN >60 ml/min Range: >60 Comments: EST GFR is reported in ml/min per 1.73 m2 of body surface area. For -[place], please multiple result by 1.2.----- GLUCOSE 87 mg/dL Range: 70-100 ALK PHOSPHATASE 79 U/L Range: 46-116 TOTAL BILIRUBIN 0.60 mg/dL Range: 0.20-1.00 AST 19 U/L Range: 8-35 ALT 35 U/L Range: 16-63 Comments: Please note new reference ranges. Effective 06/25/2014.----- ALBUMIN 2.9 g/dL (Below low Range: 3.4-5.0 threshold) TOTAL PROTEIN 7.3 g/dL Range: 6.4-8.2 A/G RATIO 0.7 units (Below low Range: 1.0-1.8 threshold) CALCIUM 8.9 mg/dL Range: 8.5-10.1 28-Dec-2015 08:58 CBC w/ Auto Diff 7150 Comments: Manual differential indicated. WBC 10.3 K/uL Range: 4.5-11.0 RBC 4.85 mil/uL Range: 4.20-5.40 HGB 13.5 g/dL (Below low threshold) Range: 14.0-18.0 HCT 41.2 % (Below low threshold) Range: 42.0-53.0 MCV 85.0 fL Range: 80.0-99.0 MCH 27.8 pg Range: 27.3-32.5 MCHC 32.7 % Range: 32.0-36.0 RDW 17.4 % (Above high threshold) Range: 11.6-14.8 PLATELETS 411 K/uL (Above high threshold) Range: 150-400 MPV 6.9 fL Range: 6.0-11.0 08:59 PROTIME PANEL 7000 PROTIME 13.8 secs Range: 12.0-14.9 INR 1.07 09:19 Manual Differential 7400 SEGS 79 % Range: 37-80 BANDS 0 % Range: 0-7 LYMPH 11 % (Below low threshold) Range: 13-50 MONO 6 % Range: 0-12 EOSIN 3 % Range: 0-7 BASO 0 % Range: 0-3 CODY LYMPH 1 % (Above high threshold) Range: 0-0 META 0 % Range: 0-0 MYELO 0 % Range: 0-0 PRO 0 % Range: 0-0 BLAST 0 % Range: 0-0 NUC RBC 0 /100 WBC Range: 0-0 SMUDGE 0 /100 WBC PLATELET Adequate Range: Adequate ANISO Slight HYPOCHRO Slight 09:30 Comprehensive Metabolic Panel 1212 SODIUM 138 mmol/L Range: 133-144 POTASSIUM 4.1 mmol/L Range: 3.5-5.1 CHLORIDE 100 mmol/L Range: 98-110 CARBON DIOXIDE 20.9 mmol/L (Below low Range: 23.0-33.0 threshold) ANION GAP 17 mmol/L (Above high Range: 6-16 threshold) BUN 19 mg/dL (Above high Range: 7-18 threshold) Comments: Variance from previous testing noted.----- CREATININE, SERUM 1.11 mg/dL Range: 0.70-1.30 BUN:CREATININE RATIO 17 EST GFR, >60 ml/min Range: >60 EST GFR, NON-AFR BOLIVIAN >60 ml/min Range: >60 Comments: EST GFR is reported in ml/min per 1.73 m2 of body surface area. ----- GLUCOSE 109 mg/dL (Above high Range: 70-100 threshold) ALK PHOSPHATASE 82 U/L Range: 46-116 TOTAL BILIRUBIN 0.90 mg/dL Range: 0.20-1.00 AST 23 U/L Range: 8-35 ALT 137 U/L (Above high Range: 16-63 threshold) ALBUMIN 3.1 g/dL (Below low Range: 3.4-5.0 threshold) TOTAL PROTEIN 7.1 g/dL Range: 6.4-8.2 A/G RATIO 0.8 units (Below low Range: 1.0-1.8 threshold) CALCIUM 9.5 mg/dL Range: 8.5-10.1 09:30 MAGNESIUM 1260 MAGNESIUM 2.1 mg/dL Range: 1.8-2.4 11-Jan-2016 10:43 CBC w/ Auto Diff 7150 WBC 3.8 K/uL (Below low threshold) Range: 4.5-11.0 RBC 4.09 mil/uL (Below low threshold) Range: 4.20-5.40 HGB 11.4 g/dL (Below low threshold) Range: 14.0-18.0 Comments: Variance from previous testing noted.----- HCT 34.6 % (Below low threshold) Range: 42.0-53.0 MCV 84.5 fL Range: 80.0-99.0 MCH 27.8 pg Range: 27.3-32.5 MCHC 33.0 % Range: 32.0-36.0 RDW 18.1 % (Above high threshold) Range: 11.6-14.8 PLATELETS 165 K/uL Range: 150-400 MPV 7.2 fL Range: 6.0-11.0 %NEUTRO 72.5 % Range: 37.0-80.0 %LYMPHS 16.0 % Range: 13.0-50.0 %MONO 4.8 % Range: 0.0-12.0 %EOS 3.4 % Range: 0.0-7.0 %BASO 0.3 % Range: 0.0-2.5 %GIOVANNI 3.1 % Range: 0.0-5.0 NEUTRO 2.7 K/uL Range: 2.0-6.9 LYMPHS 0.6 K/uL Range: 0.6-3.4 MONOS 0.2 K/uL Range: 0.0-0.9 EOS 0.1 K/uL Range: 0.0-0.7 BASO 0.0 K/uL Range: 0.0-0.2 11:05 MAGNESIUM 1260 MAGNESIUM 1.9 mg/dL Range: 1.8-2.4 11:05 Comprehensive Metabolic Panel 1212 SODIUM 135 mmol/L Range: 133-144 POTASSIUM 3.9 mmol/L Range: 3.5-5.1 CHLORIDE 98 mmol/L Range: 98-110 CARBON DIOXIDE 27.4 mmol/L Range: 23.0-33.0 ANION GAP 10 mmol/L Range: 6-16 BUN 12 mg/dL Range: 7-18 CREATININE, SERUM 0.86 mg/dL Range: 0.70-1.30 BUN:CREATININE RATIO 14 EST GFR, >60 ml/min Range: >60 EST GFR, NON-AFR BOLIVIAN >60 ml/min Range: >60 Comments: EST GFR is reported in ml/min per 1.73 m2 of body surface area. ----- GLUCOSE 126 mg/dL (Above high Range: 70-100 threshold) ALK PHOSPHATASE 101 U/L Range: 46-116 TOTAL BILIRUBIN 0.40 mg/dL Range: 0.20-1.00 AST 22 U/L Range: 8-35 ALT 46 U/L Range: 16-63 ALBUMIN 2.9 g/dL (Below low Range: 3.4-5.0 threshold) TOTAL PROTEIN 7.2 g/dL Range: 6.4-8.2 A/G RATIO 0.7 units (Below low Range: 1.0-1.8 threshold) CALCIUM 9.1 mg/dL Range: 8.5-10.1 Plan of Care Name Dates Details Planned Observations CBC w/ Auto Diff 7150 On 19-Jan-2016 Intent MAGNESIUM 1260 On 19-Jan-2016 Intent CBC w/ Auto Diff 7150 On 26-Jan-2016 Intent MAGNESIUM 1260 On 26-Jan-2016 Intent MAGNESIUM 1260 On 01-Feb-2016 Intent CBC w/ Auto Diff 7150 On 01-Feb-2016 Intent Comprehensive Metabolic Panel 1212 On 01-Feb-2016 Intent Planned Goals not documented Planned Encounters Appointment; Provider: Tristan Garber M.D.|WILLIAN DORSEY FACP, On Jan-2016 16:00 Instructions Name Dates Details Instructions not documented Encounters Appointment; Tristan Garber M.D.|WILLIAN DORSEY FACP, On 28-Dec-2015 Encounter Diagnosis: Problem not documented 09:15 Appointment; Tristan Garber M.D.|WILLIAN DORSEY,FACP, On 13-Dec-2015 Encounter Diagnosis: Problem not documented 13:15 Appointment; Tristan Garber M.D.|WILLIAN,HEBERT DORSEY, On Encounter Diagnosis: Problem not documented 09:00 Appointment; Tristan Garber M.D.|WILLIAN,HEBERT|Cat,HEBERT, On Encounter Diagnosis: Problem not documented 11:00"
--- OUTSIDE RECORDS SUMMARY | 2017-03-10 23:33 | External Medical Summary | Summary of Care ---
:1960 Author Name Sarkis Woods M.D. Address [address] Unavailable [place], [place] [id number] Care Team Providers Name Role Phone Sarkis Woods M.D. 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 Dehydration (276.51, E86.0) Status: Active Malignant neoplasm of upper lobe of left lung (162.3, C34.12) Status: Active Medications Name Dates Details Folic Acid 1 MG Oral Tablet Take 1 tablet daily Quantity: 30 Refills: 5 Jcarlos Shelton FACP, , , Tristan F Start 28-Dec-2015 Active Dexamethasone 4 MG Oral Tablet one tab po bid day before and day after Alimta treatment Quantity: 30 Refills: 1 Jcarlos Shelton FACP, , , Tristan F Start 28-Dec-2015 Active Prochlorperazine Maleate 10 MG Oral Tablet 1 tab every 6-8 hours as needed for mild nausea and vomiting Quantity: 30 Refills: 3 Jcarlos Shelton FACP, , , Tristan F Start 29-Dec-2015 Active Ondansetron HCl - 8 MG Oral Tablet 1 tab every 6-8 hours as needed for nausea Quantity: 20 Refills: 3 Jcarlos Beard., FACP, , , Tristan F Start 29-Dec-2015 Active Nitroglycerin 0.4 MG Sublingual Tablet Sublingual PLACE 1 TABLET UNDER THE TONGUE EVERY 5 MINUTES FOR UP TO 3 DOSES NEEDED FOR CHEST PAIN.CALL 911 IF PAIN PERSISTS. Refills: 0 Start 17-Feb-2016 Active Warfarin Sodium 7.5 MG Oral Tablet TAKE 1 TABLET DAILY. Refills: 0 Start 17-Feb-2016 Active Metoprolol Tartrate 50 MG Oral Tablet TAKE 1 TABLET TWICE DAILY. Refills: 0 Start 28-Dec-2015 Active Allergies and Adverse Reactions Name Dates Details Penicillins (Allergy) Status: Active Past Medical History Name Dates Details History of Pericardial effusion (423.9, I31.3) Status: Resolved Procedures Procedure Dates Details History of Creation Of Pericardial Window ECG/ EKG ([facility]) Pendin21-Feb-2016 Comprehensive Metabolic Panel 1212 Ordered: 22-Feb-2016 CBC w/ Auto Diff 7150 Ordered: 22-Feb-2016 MAGNESIUM 1260 Ordered: 22-Feb-2016 Immunization Name Dates Details Immunizations not documented Social History Smoking Status Name Dates Details Unknown if ever smoked Vital Signs Date Test Result Details 22-Feb-2016 16:49 BP Systolic 98 mm[Hg] Status: Comments: Location: ; Position: BP Diastolic 69 mm[Hg] Status: Comments: Location: ; Position: Temperature 97.5 f Status: Heart Rate 95 /min Status: Comments: Location: ; Weight 143 lb Status: Body Mass Index Calculated 19.39 kg/m2 Status: Body Surface Area Calculated 1.85 m2 Status: 21-Feb-2016 10:08 BP Systolic 100 mm[Hg] Status: Comments: Location: ; Position: BP Diastolic 62 mm[Hg] Status: Comments: Location: ; Position: Heart Rate 67 /min Status: Comments: Location: ; Weight 144 lb Status: Physical Findings 100 Status: Comments: O2 Saturation Body Mass Index Calculated 19.53 kg/m2 Status: Body Surface Area Calculated 1.85 m2 Status: Results Date Description Value Details 09-Feb-2016 13:48 CBC w/ Auto Diff 7150 Comments: Manual differential indicated. WBC 17.3 K/uL (Above high threshold) Range: 4.5-11.0 RBC 3.84 mil/uL (Below low threshold) Range: 4.20-5.40 HGB 10.9 g/dL (Below low threshold) Range: 14.0-18.0 HCT 33.7 % (Below low threshold) Range: 42.0-53.0 MCV 87.8 fL Range: 80.0-99.0 MCH 28.3 pg Range: 27.3-32.5 MCHC 32.2 % Range: 32.0-36.0 RDW 21.0 % (Above high threshold) Range: 11.6-14.8 PLATELETS 529 K/uL (Above high threshold) Range: 150-400 MPV 7.7 fL Range: 6.0-11.0 14:08 Manual Differential 7400 SEGS 85 % (Above high threshold) Range: 37-80 BANDS 1 % Range: 0-7 LYMPH 9 % (Below low threshold) Range: 13-50 MONO 3 % Range: 0-12 EOSIN 0 % Range: 0-7 BASO 0 % Range: 0-3 CODY LYMPH 0 % Range: 0-0 META 1 % (Above high threshold) Range: 0-0 MYELO 1 % (Above high threshold) Range: 0-0 PRO 0 % Range: 0-0 BLAST 0 % Range: 0-0 NUC RBC 0 /100 WBC Range: 0-0 SMUDGE 0 /100 WBC PLATELET Increased (Abnormal) Range: Adequate ANISO Mod MACROCYT Slight POLYCHRO Slight 17-Feb-2016 07:52 CBC w/ Auto Diff 7150 Comments: Manual differential indicated. WBC 22.9 K/uL (Above high threshold) Range: 4.5-11.0 RBC 3.04 mil/uL (Below low threshold) Range: 4.20-5.40 HGB 8.8 g/dL (Below low threshold) Range: 14.0-18.0 Comments: Variance from previous testing noted.----- HCT 27.0 % (Below low threshold) Range: 42.0-53.0 MCV 88.9 fL Range: 80.0-99.0 MCH 28.8 pg Range: 27.3-32.5 MCHC 32.4 % Range: 32.0-36.0 RDW 20.8 % (Above high threshold) Range: 11.6-14.8 PLATELETS 309 K/uL Range: 150-400 MPV 8.0 fL Range: 6.0-11.0 08:16 Manual Differential 7400 SEGS 94 % (Above high threshold) Range: 37-80 BANDS 2 % Range: 0-7 LYMPH 2 % (Below low threshold) Range: 13-50 MONO [...] WBC PLATELET Adequate Range: Adequate ANISO Slight MACROCYT Slight HYPOCHRO Slight TOXIC Present 11:46 XN INJ BONE WB Comments: Exam Date: 02/17/2016 07:52Dictation Date: 02/17/2016 11:46 21-Feb-2016 10:01 ECG/ EKG ([facility]) Electro CardioGram 10:02 CBC w/ Auto Diff 7150 Comments: Manual differential indicated. WBC 7.2 K/uL Range: 4.5-11.0 RBC 3.72 mil/uL (Below low threshold) Range: 4.20-5.40 HGB 10.9 g/dL (Below low threshold) Range: 14.0-18.0 Comments: Variance from previous testing noted.----- HCT 33.4 % (Below low threshold) Range: 42.0-53.0 MCV 90.0 fL Range: 80.0-99.0 MCH 29.4 pg Range: 27.3-32.5 MCHC 32.7 % Range: 32.0-36.0 RDW 20.7 % (Above high threshold) Range: 11.6-14.8 PLATELETS 112 K/uL (Below low threshold) Range: 150-400 MPV 7.9 fL Range: 6.0-11.0 10:20 Comprehensive Metabolic Panel 1212 SODIUM 137 mmol/L Range: 133-144 POTASSIUM 3.7 mmol/L Range: 3.5-5.1 CHLORIDE 102 mmol/L Range: 98-110 CARBON DIOXIDE 29.4 mmol/L Range: 23.0-33.0 ANION GAP 6 mmol/L Range: 6-16 BUN 12 mg/dL Range: 7-18 CREATININE, SERUM 0.67 mg/dL (Below low Range: 0.70-1.30 threshold) BUN:CREATININE RATIO 18 EST GFR, >60 ml/min Range: >60 EST GFR, NON-AFR SAMOAN >60 ml/min Range: >60 Comments: EST GFR is reported in ml/min per 1.73 m2 of body surface area. ----- GLUCOSE 107 mg/dL (Above high Range: 70-100 threshold) ALK PHOSPHATASE 127 U/L (Above high Range: 46-116 threshold) TOTAL BILIRUBIN 0.20 mg/dL Range: 0.20-1.00 AST 30 U/L Range: 8-35 ALT 74 U/L (Above high Range: 16-63 threshold) ALBUMIN 2.7 g/dL (Below low Range: 3.4-5.0 threshold) TOTAL PROTEIN 7.2 g/dL Range: 6.4-8.2 A/G RATIO 0.6 units (Below low Range: 1.0-1.8 threshold) CALCIUM 9.5 mg/dL Range: 8.5-10.1 10:20 MAGNESIUM 1260 MAGNESIUM 1.8 mg/dL Range: 1.8-2.4 10:33 Manual Differential 7400 SEGS 89 % (Above high threshold) Range: 37-80 BANDS 1 % Range: 0-7 LYMPH 8 % (Below low threshold) Range: 13-50 MONO 2 % Range: 0-12 EOSIN 0 % Range: 0-7 BASO 0 % Range: 0-3 CODY LYMPH 0 % Range: 0-0 META 0 % Range: 0-0 MYELO 0 % Range: 0-0 PRO 0 % Range: 0-0 BLAST 0 % Range: 0-0 NUC RBC 0 /100 WBC Range: 0-0 SMUDGE 0 /100 WBC PLATELET Adequate Range: Adequate ANISO Mod 24-Feb-2016 15:08 Manual Differential 7400 SEGS 80 % Range: 37-80 BANDS 12 % (Above high threshold) Range: 0-7 LYMPH 2 % (Below low threshold) Range: 13-50 MONO 2 % Range: 0-12 EOSIN 1 % Range: 0-7 BASO 0 % Range: 0-3 CODY LYMPH 2 % (Above high threshold) Range: 0-0 META 0 % Range: 0-0 MYELO 0 % Range: 0-0 PRO 1 % (Above high threshold) Range: 0-0 BLAST 0 % Range: 0-0 NUC RBC 1 /100 WBC (Above high threshold) Range: 0-0 SMUDGE 0 /100 WBC PLATELET Decreased (Abnormal) Range: Adequate ANISO Marked HYPOCHRO Slight POLYCHRO Mod TOXIC Present DOHLE Present 15:11 CBC w/ Auto Diff 7150 Comments: Critical result called to [facility] by Sigrid Taylor on 02/24/2016 at 3:16 PM (WBC)Manual differential indicated. WBC 36.1 K/uL (High alert) Range: 4.5-11.0 RBC 3.58 mil/uL (Below low threshold) Range: 4.20-5.40 HGB 10.8 g/dL (Below low threshold) Range: 14.0-18.0 HCT 32.2 % (Below low threshold) Range: 42.0-53.0 MCV 89.9 fL Range: 80.0-99.0 MCH 30.1 pg Range: 27.3-32.5 MCHC 33.5 % Range: 32.0-36.0 RDW 21.7 % (Above high threshold) Range: 11.6-14.8 PLATELETS 107 K/uL (Below low threshold) Range: 150-400 MPV 8.5 fL Range: 6.0-11.0 28-Feb-2016 09:29 CBC w/ Auto Diff 7150 Comments: Manual differential indicated. WBC 17.2 K/uL (Above high threshold) Range: 4.5-11.0 RBC 3.90 mil/uL (Below low threshold) Range: 4.20-5.40 HGB 11.5 g/dL (Below low threshold) Range: 14.0-18.0 HCT 34.7 % (Below low threshold) Range: 42.0-53.0 MCV 89.1 fL Range: 80.0-99.0 MCH 29.4 pg Range: 27.3-32.5 MCHC 33.0 % Range: 32.0-36.0 RDW 21.4 % (Above high threshold) Range: 11.6-14.8 PLATELETS 255 K/uL Range: 150-400 MPV 7.5 fL Range: 6.0-11.0 09:44 MAGNESIUM 1260 MAGNESIUM 1.9 mg/dL Range: 1.8-2.4 09:48 Manual Differential 7400 SEGS 86 % (Above high threshold) Range: 37-80 BANDS 2 % Range: 0-7 LYMPH 7 % (Below low threshold) Range: 13-50 MONO 3 % Range: 0-12 EOSIN 1 % Range: 0-7 BASO 0 % Range: 0-3 CODY LYMPH 0 % Range: 0-0 META 0 % Range: 0-0 MYELO 1 % (Above high threshold) Range: 0-0 PRO 0 % Range: 0-0 BLAST 0 % Range: 0-0 NUC RBC 0 /100 WBC Range: 0-0 SMUDGE 0 /100 WBC PLATELET Adequate Range: Adequate ANISO Mod POLYCHRO Slight 01-Mar-2016 15:29 CBC w/ Auto Diff 7150 Comments: Manual differential indicated. WBC 15.7 K/uL (Above high threshold) Range: 4.5-11.0 RBC 3.90 mil/uL (Below low threshold) Range: 4.20-5.40 HGB 11.6 g/dL (Below low threshold) Range: 14.0-18.0 HCT 34.7 % (Below low threshold) Range: 42.0-53.0 MCV 88.8 fL Range: 80.0-99.0 MCH 29.6 pg Range: 27.3-32.5 MCHC 33.3 % Range: 32.0-36.0 RDW 20.8 % (Above high threshold) Range: 11.6-14.8 PLATELETS 431 K/uL (Above high threshold) Range: 150-400 MPV 7.5 fL Range: 6.0-11.0 15:49 Manual Differential 7400 SEGS 88 % (Above high threshold) Range: 37-80 BANDS 0 % Range: 0-7 LYMPH 5 % (Below low threshold) Range: 13-50 MONO 7 % Range: 0-12 EOSIN 0 % Range: 0-7 BASO 0 % Range: 0-3 CODY LYMPH 0 % Range: 0-0 META 0 % Range: 0-0 MYELO 0 % Range: 0-0 PRO 0 % Range: 0-0 BLAST 0 % Range: 0-0 NUC RBC 0 /100 WBC Range: 0-0 SMUDGE 0 /100 WBC PLATELET Adequate Range: Adequate ANISO Mod MACROCYT Slight HYPOCHRO Slight POLYCHRO Slight 15:52 MAGNESIUM 1260 MAGNESIUM 2.2 mg/dL Range: 1.8-2.4 07-Mar-2016 11:51 CBC w/ Auto Diff 7150 Comments: Manual differential indicated. WBC 14.6 K/uL (Above high threshold) Range: 4.5-11.0 RBC 3.87 mil/uL (Below low threshold) Range: 4.20-5.40 HGB 11.3 g/dL (Below low threshold) Range: 14.0-18.0 HCT 34.8 % (Below low threshold) Range: 42.0-53.0 MCV 90.0 fL Range: 80.0-99.0 MCH 29.1 pg Range: 27.3-32.5 MCHC 32.4 % Range: 32.0-36.0 RDW 21.2 % (Above high threshold) Range: 11.6-14.8 PLATELETS 585 K/uL (Above high threshold) Range: 150-400 MPV 7.8 fL Range: 6.0-11.0 11:58 PROTIME PANEL 7000 PROTIME 13.1 secs Range: 12.0-14.9 INR 1.00 12:27 Manual Differential 7400 Comments: DOS 03/08/16 AT [facility] SEGS 97 % (Above high threshold) Range: 37-80 BANDS 0 % Range: 0-7 LYMPH 2 % (Below low threshold) Range: 13-50 MONO 1 % Range: 0-12 EOSIN 0 % Range: 0-7 BASO 0 % Range: 0-3 CODY LYMPH 0 % Range: 0-0 META 0 % Range: 0-0 MYELO 0 % Range: 0-0 PRO 0 % Range: 0-0 BLAST 0 % Range: 0-0 NUC RBC 0 /100 WBC Range: 0-0 SMUDGE 0 /100 WBC PLATELET Increased (Abnormal) Range: Adequate ANISO Slight 08-Mar-2016 12:13 XRay CHEST-PA & LAT Comments: Exam Date: 03/08/2016 11: 08Dictation Date: 03/08/2016 12:13 X CHEST PA & LAT Plan of Care Name Dates Details Planned Observations Planned Goals not documented Planned Encounters Appointment; Provider: Poornima العلي M.D. On 19-Feb-2017 10:00 Appointment; Provider: Tristan Garber M.D.|WILLIAN,WILLIAN,HEBERT, On Feb-2016 14:15 Instructions Name Dates Details Instructions not documented Encounters Appointment; Tristan Garber M.D.|FACP|M.D.,FACP|MShirleyDShirley,FACP, On 22-Feb-2016 Encounter Diagnosis: Problem not documented 14:15 Appointment; Poornima العلي M.D. On 21-Feb-2016 Encounter Diagnosis: Problem not documented 10:15 Appointment; Tristan Garber M.D.|FACP|M.DShirley,FACP|MTreva,FACP, On 01-Feb-2016 Encounter Diagnosis: Problem not documented 16:00 Appointment; Tristan Garber M.D.|FACP|M.DShirley,FACP|MShirleyDShirley,FACP, On 11-Jan-2016 Encounter Diagnosis: Problem not documented 10:15 Appointment; Tristan Garber M.D.|FACP|M.DShirley,FACP|MShirleyDShirley,FACP, On 28-Dec-2015 Encounter Diagnosis: Problem not documented 09:15 Appointment; Tristan Garber M.D.|FACP|M.DShirley,FACP|MTreva,FACP, On 13-Dec-2015 Encounter Diagnosis: Problem not documented 13:15 Appointment; Tristan Garber M.D.|FACP|M.DShirley,FACP|M.DShirley,FACP, On Encounter Diagnosis: Problem not documented 09:00 Appointment; Tristan Garber M.D.|FACP|M.DShirley,FACP|M.DShirley,FACP, On Encounter Diagnosis: Problem not documented 11:00"
--- OUTSIDE RECORDS SUMMARY | 2017-03-10 23:34 | External Medical Summary | Summary of Care ---
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 Refills: 0 Start 17-Feb-2016 Active Azithromycin 250 MG Oral Tablet Take two tablets on day one and take one tablet on days 2-5. Quantity: 6 Refills: 0 Jcarlos Shelton, HEBERT, , , Tristan F Start 23-Mar-2016 Active Allergies and Adverse Reactions Name Dates Details Penicillins (Allergy) Status: Active Past Medical History Name Dates Details History of Pericardial effusion (423.9, I31.3) Status: Resolved Procedures Procedure Dates Details History of Creation Of Pericardial Window CBC w/ Auto Diff 7150 Ordered: 24-Apr-2016 MAGNESIUM 1260 Ordered: 24-Apr-2016 MAGNESIUM 1260 Ordered: 24-Apr-2016 CBC w/ Auto Diff 7150 Ordered: 24-Apr-2016 CBC w/ Auto Diff 7150 Ordered: 24-Apr-2016 Comprehensive Metabolic Panel 1212 Ordered: 24-Apr-2016 MAGNESIUM 1260 Ordered: 24-Apr-2016 Immunization Name Dates Details Immunizations not documented Social History Smoking Status Name Dates Details Unknown if ever smoked Vital Signs Date Test Result Details 24-Apr-2016 14:55 BP Systolic 95 mm[Hg] Status: Comments: Location: ; Position: BP Diastolic 63 mm[Hg] Status: Comments: Location: ; Position: Temperature 97.5 f Status: Comments: Method: Heart Rate 84 /min Status: Comments: Location: ; Weight 140 lb Status: Body Mass Index Calculated 18.99 kg/m2 Status: Body Surface Area Calculated 1.83 m2 Status: 03-Apr-2016 16:10 BP Systolic 104 mm[Hg] Status: Comments: Location: ; Position: BP Diastolic 61 mm[Hg] Status: Comments: Location: ; Position: Temperature 97.3 f Status: Comments: Method: Heart Rate 70 /min Status: Comments: Location: ; Weight 134 lb Status: Body Mass Index Calculated 18.17 kg/m2 Status: Body Surface Area Calculated 1.8 m2 Status: Results Date Description Value Details 27-Mar-2016 14:01 CBC w/ Auto Diff 7150 WBC 9.4 K/uL Range: 4.5-11.0 RBC 4.39 mil/uL Range: 4.20-5.40 HGB 12.8 g/dL (Below low threshold) Range: 14.0-18.0 HCT 39.7 % (Below low threshold) Range: 42.0-53.0 MCV 90.5 fL Range: 80.0-99.0 MCH 29.2 pg Range: 27.3-32.5 MCHC 32.3 % Range: 32.0-36.0 RDW 20.1 % (Above high threshold) Range: 11.6-14.8 PLATELETS 431 K/uL (Above high threshold) Range: 150-400 MPV 7.6 fL Range: 6.0-11.0 %NEUTRO 77.5 % Range: 37.0-80.0 %LYMPHS 14.2 % Range: 13.0-50.0 %MONO 5.4 % Range: 0.0-12.0 %EOS 1.2 % Range: 0.0-7.0 %BASO 0.7 % Range: 0.0-2.5 %GIOVANNI 1.0 % Range: 0.0-5.0 NEUTRO 7.3 K/uL (Above high threshold) Range: 2.0-6.9 LYMPHS 1.3 K/uL Range: 0.6-3.4 MONOS 0.5 K/uL Range: 0.0-0.9 EOS 0.1 K/uL Range: 0.0-0.7 BASO 0.1 K/uL Range: 0.0-0.2 14:19 MAGNESIUM 1260 MAGNESIUM 2.3 mg/dL Range: 1.8-2.4 15:08 PICC INSERTION OVER AGE 5 Comments: Exam Date: 03/27/2016 14: 16Dictation Date: 03/27/2016 15:08 XF PICC INSERTION OVER AGE 5 30-Mar-2016 10:56 CBC w/ Auto Diff 7150 WBC 7.5 K/uL Range: 4.5-11.0 RBC 3.88 mil/uL (Below low threshold) Range: 4.20-5.40 HGB 11.4 g/dL (Below low threshold) Range: 14.0-18.0 HCT 34.7 % (Below low threshold) Range: 42.0-53.0 MCV 89.4 fL Range: 80.0-99.0 MCH 29.4 pg Range: 27.3-32.5 MCHC 32.9 % Range: 32.0-36.0 RDW 19.7 % (Above high threshold) Range: 11.6-14.8 PLATELETS 284 K/uL Range: 150-400 MPV 7.3 fL Range: 6.0-11.0 %NEUTRO 73.1 % Range: 37.0-80.0 %LYMPHS 18.3 % Range: 13.0-50.0 %MONO 4.3 % Range: 0.0-12.0 %EOS 1.3 % Range: 0.0-7.0 %BASO 0.6 % Range: 0.0-2.5 %GIOVANNI 2.4 % Range: 0.0-5.0 NEUTRO 5.5 K/uL Range: 2.0-6.9 LYMPHS 1.4 K/uL Range: 0.6-3.4 MONOS 0.3 K/uL Range: 0.0-0.9 EOS 0.1 K/uL Range: 0.0-0.7 BASO 0.0 K/uL Range: 0.0-0.2 03-Apr-2016 15:30 CBC w/ Auto Diff 7150 WBC 6.5 K/uL Range: 4.5-11.0 RBC 3.74 mil/uL (Below low threshold) Range: 4.20-5.40 HGB 11.0 g/dL (Below low threshold) Range: 14.0-18.0 HCT 33.7 % (Below low threshold) Range: 42.0-53.0 MCV 90.2 fL Range: 80.0-99.0 MCH 29.4 pg Range: 27.3-32.5 MCHC 32.7 % Range: 32.0-36.0 RDW 19.2 % (Above high threshold) Range: 11.6-14.8 PLATELETS 266 K/uL Range: 150-400 MPV 6.4 fL Range: 6.0-11.0 %NEUTRO 73.6 % Range: 37.0-80.0 %LYMPHS 19.0 % Range: 13.0-50.0 %MONO 4.2 % Range: 0.0-12.0 %EOS 1.0 % Range: 0.0-7.0 %BASO 0.6 % Range: 0.0-2.5 %GIOVANNI 1.6 % Range: 0.0-5.0 NEUTRO 4.8 K/uL Range: 2.0-6.9 LYMPHS 1.2 K/uL Range: 0.6-3.4 MONOS 0.3 K/uL Range: 0.0-0.9 EOS 0.1 K/uL Range: 0.0-0.7 BASO 0.0 K/uL Range: 0.0-0.2 15:43 Comprehensive Metabolic Panel 1212 SODIUM 141 mmol/L Range: 133-144 POTASSIUM 3.6 mmol/L Range: 3.5-5.1 CHLORIDE 103 mmol/L Range: 98-110 CARBON DIOXIDE 27.3 mmol/L Range: 23.0-33.0 ANION GAP 11 mmol/L Range: 6-16 BUN 12 mg/dL Range: 7-18 CREATININE, SERUM 0.77 mg/dL Range: 0.70-1.30 BUN:CREATININE RATIO 16 EST GFR, >60 ml/min Range: >60 EST GFR, NON-AFR CYMRAES >60 ml/min Range: >60 Comments: EST GFR is reported in ml/min per 1.73 m2 of body surface area. ----- GLUCOSE 94 mg/dL Range: 70-100 Comments: Variance from previous testing noted.----- ALK PHOSPHATASE 86 U/L Range: 46-116 TOTAL BILIRUBIN 0.40 mg/dL Range: 0.20-1.00 AST 21 U/L Range: 8-35 ALT 14 U/L (Below low Range: 16-63 threshold) ALBUMIN 2.4 g/dL (Below low Range: 3.4-5.0 threshold) TOTAL PROTEIN 6.8 g/dL Range: 6.4-8.2 A/G RATIO 0.5 units (Below low Range: 1.0-1.8 threshold) CALCIUM 8.7 mg/dL Range: 8.5-10.1 15:43 MAGNESIUM 1260 MAGNESIUM 1.9 mg/dL Range: 1.8-2.4 11-Apr-2016 11:13 CBC w/ Auto Diff 7150 Comments: Manual differential indicated. WBC 8.0 K/uL Range: 4.5-11.0 RBC 4.00 mil/uL (Below low threshold) Range: 4.20-5.40 HGB 11.7 g/dL (Below low threshold) Range: 14.0-18.0 HCT 36.2 % (Below low threshold) Range: 42.0-53.0 MCV 90.4 fL Range: 80.0-99.0 MCH 29.3 pg Range: 27.3-32.5 MCHC 32.4 % Range: 32.0-36.0 RDW 19.5 % (Above high threshold) Range: 11.6-14.8 PLATELETS 316 K/uL Range: 150-400 MPV 7.0 fL Range: 6.0-11.0 11:18 MAGNESIUM 1260 MAGNESIUM 1.9 mg/dL Range: 1.8-2.4 11:45 Manual Differential 7400 SEGS 78 % Range: 37-80 BANDS 0 % Range: 0-7 LYMPH 18 % Range: 13-50 MONO 4 % Range: 0-12 EOSIN 0 % Range: 0-7 BASO 0 % Range: 0-3 CODY LYMPH 0 % Range: 0-0 META 0 % Range: 0-0 MYELO 0 % Range: 0-0 PRO 0 % Range: 0-0 BLAST 0 % Range: 0-0 NUC RBC 0 /100 WBC Range: 0-0 SMUDGE 0 /100 WBC PLATELET Adequate Range: Adequate 18-Apr-2016 10:50 CBC w/ Auto Diff 7150 WBC 7.1 K/uL Range: 4.5-11.0 RBC 4.02 mil/uL (Below low threshold) Range: 4.20-5.40 HGB 12.1 g/dL (Below low threshold) Range: 14.0-18.0 HCT 36.6 % (Below low threshold) Range: 42.0-53.0 MCV 91.1 fL Range: 80.0-99.0 MCH 30.0 pg Range: 27.3-32.5 MCHC 32.9 % Range: 32.0-36.0 RDW 18.5 % (Above high threshold) Range: 11.6-14.8 PLATELETS 306 K/uL Range: 150-400 MPV 6.1 fL Range: 6.0-11.0 %NEUTRO 74.8 % Range: 37.0-80.0 %LYMPHS 17.0 % Range: 13.0-50.0 %MONO 4.3 % Range: 0.0-12.0 %EOS 1.6 % Range: 0.0-7.0 %BASO 0.5 % Range: 0.0-2.5 %GIOVANNI 1.7 % Range: 0.0-5.0 NEUTRO 5.3 K/uL Range: 2.0-6.9 LYMPHS 1.2 K/uL Range: 0.6-3.4 MONOS 0.3 K/uL Range: 0.0-0.9 EOS 0.1 K/uL Range: 0.0-0.7 BASO 0.0 K/uL Range: 0.0-0.2 11:00 MAGNESIUM 1260 MAGNESIUM 2.0 mg/dL Range: 1.8-2.4 20-Apr-2016 09:31 CT CHEST/AB/PEL WITH ORAL AND IV Comments: Exam Date: 04/20 08:00Dictation Date: 04/20/2016 09:31 CONTRAST XC CHEST/AB/PEL 45 PA 24-Apr-2016 13:01 CBC w/ Auto Diff 7150 WBC 8.2 K/uL Range: 4.5-11.0 RBC 4.26 mil/uL Range: 4.20-5.40 HGB 12.5 g/dL (Below low threshold) Range: 14.0-18.0 HCT 38.8 % (Below low threshold) Range: 42.0-53.0 MCV 91.1 fL Range: 80.0-99.0 MCH 29.5 pg Range: 27.3-32.5 MCHC 32.3 % Range: 32.0-36.0 RDW 19.2 % (Above high threshold) Range: 11.6-14.8 PLATELETS 308 K/uL Range: 150-400 MPV 7.0 fL Range: 6.0-11.0 %NEUTRO 79.1 % Range: 37.0-80.0 %LYMPHS 13.1 % Range: 13.0-50.0 %MONO 4.5 % Range: 0.0-12.0 %EOS 1.5 % Range: 0.0-7.0 %BASO 0.4 % Range: 0.0-2.5 %GIOVANNI 1.5 % Range: 0.0-5.0 NEUTRO 6.5 K/uL Range: 2.0-6.9 LYMPHS 1.1 K/uL Range: 0.6-3.4 MONOS 0.4 K/uL Range: 0.0-0.9 EOS 0.1 K/uL Range: 0.0-0.7 BASO 0.0 K/uL Range: 0.0-0.2 13:23 Comprehensive Metabolic Panel 1212 SODIUM 138 mmol/L Range: 133-144 POTASSIUM 3.6 mmol/L Range: 3.5-5.1 CHLORIDE 101 mmol/L Range: 98-110 CARBON DIOXIDE 25.8 mmol/L Range: 23.0-33.0 ANION GAP 11 mmol/L Range: 6-16 BUN 12 mg/dL Range: 7-18 CREATININE, SERUM 0.93 mg/dL Range: 0.70-1.30 BUN:CREATININE RATIO 13 EST GFR, >60 ml/min Range: >60 EST GFR, NON-AFR CYMRAES >60 ml/min Range: >60 Comments: EST GFR is reported in ml/min per 1.73 m2 of body surface area. ----- GLUCOSE 157 mg/dL (Above high Range: 70-100 threshold) Comments: Variance from previous testing noted.----- ALK PHOSPHATASE 86 U/L Range: 46-116 TOTAL BILIRUBIN 0.40 mg/dL Range: 0.20-1.00 AST 15 U/L Range: 8-35 ALT 15 U/L (Below low Range: 16-63 threshold) ALBUMIN 2.6 g/dL (Below low Range: 3.4-5.0 threshold) TOTAL PROTEIN 7.5 g/dL Range: 6.4-8.2 A/G RATIO 0.5 units (Below low Range: 1.0-1.8 threshold) CALCIUM 9.0 mg/dL Range: 8.5-10.1 13:23 MAGNESIUM 1260 MAGNESIUM 2.0 mg/dL Range: 1.8-2.4 Plan of Care Name Dates Details Planned Observations CBC w/ Auto Diff 7150 On 01-May-2016 Intent MAGNESIUM 1260 On 01-May-2016 Intent MAGNESIUM 1260 On 08-May-2016 Intent CBC w/ Auto Diff 7150 On 08-May-2016 Intent CBC w/ Auto Diff 7150 On 15-May-2016 Intent Comprehensive Metabolic Panel 1212 On 15-May-2016 Intent MAGNESIUM 1260 On 15-May-2016 Intent Planned Goals not documented Planned Encounters Appointment; Provider: Poornima العلي M.D. On 19-Feb-2017 10:00 Appointment; Provider: Tristan Garber M.D.|FACP|MShirleyDShirley,FACP|MTreva,FACP, On Apr-2016 11:00 Instructions Name Dates Details Instructions not documented Encounters Appointment; Tristan Garber M.D.|FACP|M.DShirley,FACP|MTreva,FACP, On 03-Apr-2016 Encounter Diagnosis: Problem not documented 16:00 Appointment; Tristan Garber M.D.|FACP|M.DShirley,FACP|MTreva,FACP, On 20-Mar-2016 Encounter Diagnosis: Problem not documented 16:00 Appointment; Tristan Garber M.D.|FACP|M.DShirley,FACP|M.DShirley,FACP, On 13-Mar-2016 Encounter Diagnosis: Problem not documented 09:30 Appointment; Sarkis Woods M.D. On 08-Mar-2016 Encounter Diagnosis: Problem not documented 09:00 Appointment; Tristan Garber M.D.|FACP|M.DShirley,FACP|MShirleyDShirley,FACP, On 22-Feb-2016 Encounter Diagnosis: Problem not documented 14:15 Appointment; Poornima العلي M.D. On 21-Feb-2016 Encounter Diagnosis: Problem not documented 10:15 Appointment; Tristan Garber M.D.|FACP|M.DShirley,FACP|M.DShirley,FACP, On 01-Feb-2016 Encounter Diagnosis: Problem not documented 16:00 Appointment; Tristan Garber M.D.|FACP|M.DShirley,FACP|M.DShirley,FACP, On 11-Jan-2016 Encounter Diagnosis: Problem not documented 10:15 Appointment; Tristan Garber M.D.|FACP|M.DShirley,FACPMisti,HEBERT, On 28-Dec-2015 Encounter Diagnosis: Problem not documented 09:15 Appointment; Tristan Garber M.D.|WILLIAN,WILLIAN,HEBERT, On 13-Dec-2015 Encounter Diagnosis: Problem not documented 13:15 Appointment; Tristan Garber M.D.|WILLIAN,HEBERT|Cat,HEBERT, On Encounter Diagnosis: Problem not documented 09:00 Appointment; Tristan Garber M.D.|WILLIAN,HEBERT|Cat,HEBERT, On Encounter Diagnosis: Problem not documented 11:00"
--- OUTSIDE RECORDS SUMMARY | 2017-03-10 23:34 | External Medical Summary | Summary of Care ---
[...] Resolved Pulmonary embolism (415.19, I26.99) Status: Active Dehydration (276.51, E86.0) Status: Active Malignant neoplasm of upper lobe of left lung (162.3, C34.12) Status: Active 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.7, C79.70) Status: Active Cough with sputum (786.2, R05) Status: Active Medications Name Dates Details Metoprolol [...] Details History of Creation Of Pericardial Window MAGNESIUM 1260 Ordered: 16-May-2016 CBC w/ Auto Diff 7150 Ordered: 16-May-2016 MAGNESIUM 1260 Ordered: 16-May-2016 CBC w/ Auto Diff 7150 Ordered: 16-May-2016 MAGNESIUM 1260 Ordered: 16-May-2016 CBC w/ Auto Diff 7150 Ordered: 16-May-2016 Comprehensive Metabolic Panel 1212 Ordered: 16-May-2016 MAGNESIUM 1260 Ordered: 16-May-2016 Immunization Name Dates Details Immunizations not documented Social History Smoking Status Name Dates Details Unknown if ever smoked Vital Signs Date Test Result Details 16-May-2016 11:02 BP Systolic 106 mm[Hg] Status: Comments: Location: ; Position: BP Diastolic 70 mm[Hg] Status: Comments: Location: ; Position: Temperature 98.4 f Status: Comments: Method: Heart Rate 83 /min Status: Comments: Location: ; Weight 146 lb Status: Body Mass Index Calculated 19.8 kg/m2 Status: Body Surface Area Calculated 1.86 m2 Status: 24-Apr-2016 14:55 BP Systolic 95 mm[Hg] Status: Comments: Location: ; Position: BP Diastolic 63 mm[Hg] Status: Comments: Location: ; Position: Temperature 97.5 f Status: Comments: Method: Heart Rate 84 /min Status: Comments: Location: ; Weight 140 lb Status: Body Mass Index Calculated 18.99 kg/m2 Status: Body Surface Area Calculated 1.83 m2 Status: Results Date Description Value Details 24-Apr-2016 13:01 CBC w/ Auto Diff 7150 [...] >60 ml/min Range: >60 EST GFR, NON-AFR GAMBIAN >60 ml/min Range: >60 Comments: EST GFR [...] MAGNESIUM 1260 MAGNESIUM 2.0 mg/dL Range: 1.8-2.4 01-May-2016 13:27 CBC w/ Auto Diff 7150 WBC 6.7 K/uL Range: 4.5-11.0 RBC 4.24 mil/uL Range: 4.20-5.40 HGB 12.6 g/dL (Below low threshold) Range: 14.0-18.0 HCT 39.3 % (Below low threshold) Range: 42.0-53.0 MCV 92.7 fL Range: 80.0-99.0 MCH 29.8 pg Range: 27.3-32.5 MCHC 32.1 % Range: 32.0-36.0 RDW 18.0 % (Above high threshold) Range: 11.6-14.8 PLATELETS 297 K/uL Range: 150-400 MPV 6.5 fL Range: 6.0-11.0 %NEUTRO 73.6 % Range: 37.0-80.0 %LYMPHS 16.8 % Range: 13.0-50.0 %MONO 5.2 % Range: 0.0-12.0 %EOS 2.7 % Range: 0.0-7.0 %BASO 0.6 % Range: 0.0-2.5 %GIOVANNI 1.1 % Range: 0.0-5.0 NEUTRO 5.0 K/uL Range: 2.0-6.9 LYMPHS 1.1 K/uL Range: 0.6-3.4 MONOS 0.4 K/uL Range: 0.0-0.9 EOS 0.2 K/uL Range: 0.0-0.7 BASO 0.0 K/uL Range: 0.0-0.2 13:42 MAGNESIUM 1260 MAGNESIUM 2.0 mg/dL Range: 1.8-2.4 08-May-2016 10:50 CBC w/ Auto Diff 7150 WBC 7.3 K/uL Range: 4.5-11.0 RBC 4.19 mil/uL (Below low threshold) Range: 4.20-5.40 HGB 12.7 g/dL (Below low threshold) Range: 14.0-18.0 HCT 39.7 % (Below low threshold) Range: 42.0-53.0 MCV 94.9 fL Range: 80.0-99.0 MCH 30.3 pg Range: 27.3-32.5 MCHC 31.9 % (Below low threshold) Range: 32.0-36.0 RDW 18.3 % (Above high threshold) Range: 11.6-14.8 PLATELETS 316 K/uL Range: 150-400 MPV 7.1 fL Range: 6.0-11.0 %NEUTRO 73.1 % Range: 37.0-80.0 %LYMPHS 16.1 % Range: 13.0-50.0 %MONO 6.3 % Range: 0.0-12.0 %EOS 2.4 % Range: 0.0-7.0 %BASO 0.5 % Range: 0.0-2.5 %GIOVANNI 1.6 % Range: 0.0-5.0 NEUTRO 5.3 K/uL Range: 2.0-6.9 LYMPHS 1.2 K/uL Range: 0.6-3.4 MONOS 0.5 K/uL Range: 0.0-0.9 EOS 0.2 K/uL Range: 0.0-0.7 BASO 0.0 K/uL Range: 0.0-0.2 11:15 MAGNESIUM 1260 MAGNESIUM 2.0 mg/dL Range: 1.8-2.4 15-May-2016 14:53 CBC w/ Auto Diff 7150 WBC 9.3 K/uL Range: 4.5-11.0 RBC 4.43 mil/uL Range: 4.20-5.40 HGB 13.6 g/dL (Below low threshold) Range: 14.0-18.0 HCT 41.6 % (Below low threshold) Range: 42.0-53.0 MCV 93.8 fL Range: 80.0-99.0 MCH 30.6 pg Range: 27.3-32.5 MCHC 32.6 % Range: 32.0-36.0 RDW 18.0 % (Above high threshold) Range: 11.6-14.8 PLATELETS 322 K/uL Range: 150-400 MPV 7.1 fL Range: 6.0-11.0 %NEUTRO 74.9 % Range: 37.0-80.0 %LYMPHS 15.9 % Range: 13.0-50.0 %MONO 5.2 % Range: 0.0-12.0 %EOS 2.2 % Range: 0.0-7.0 %BASO 0.5 % Range: 0.0-2.5 %GIOVANNI 1.4 % Range: 0.0-5.0 NEUTRO 7.0 K/uL (Above high threshold) Range: 2.0-6.9 LYMPHS 1.5 K/uL Range: 0.6-3.4 MONOS 0.5 K/uL Range: 0.0-0.9 EOS 0.2 K/uL Range: 0.0-0.7 BASO 0.0 K/uL Range: 0.0-0.2 15:13 MAGNESIUM 1260 MAGNESIUM 2.1 mg/dL Range: 1.8-2.4 15:13 Comprehensive Metabolic Panel 1212 SODIUM 138 mmol/L Range: 133-144 POTASSIUM 3.8 mmol/L Range: 3.5-5.1 CHLORIDE 101 mmol/L Range: 98-110 CARBON DIOXIDE 28.5 mmol/L Range: 23.0-33.0 ANION GAP 9 mmol/L Range: 6-16 BUN 12 mg/dL Range: 7-18 CREATININE, SERUM 0.82 mg/dL Range: 0.70-1.30 BUN:CREATININE RATIO 15 EST GFR, >60 ml/min Range: >60 EST GFR, NON-AFR GAMBIAN >60 ml/min Range: >60 Comments: EST GFR is reported in ml/min per 1.73 m2 of body surface area. ----- GLUCOSE 90 mg/dL Range: 70-100 Comments: Variance from previous testing noted.----- ALK PHOSPHATASE 87 U/L Range: 46-116 TOTAL BILIRUBIN 0.30 mg/dL Range: 0.20-1.00 AST 17 U/L Range: 8-35 ALT 13 U/L (Below low Range: 16-63 threshold) ALBUMIN 2.7 g/dL (Below low Range: 3.4-5.0 threshold) TOTAL PROTEIN 7.8 g/dL Range: 6.4-8.2 A/G RATIO 0.5 units (Below low Range: 1.0-1.8 threshold) CALCIUM 9.0 mg/dL Range: 8.5-10.1 22-May-2016 11:36 CBC w/ Auto Diff 7150 WBC 6.9 K/uL Range: 4.5-11.0 RBC 3.91 mil/uL (Below low threshold) Range: 4.20-5.40 HGB 11.7 g/dL (Below low threshold) Range: 14.0-18.0 HCT 36.0 % (Below low threshold) Range: 42.0-53.0 MCV 92.1 fL Range: 80.0-99.0 MCH 29.9 pg Range: 27.3-32.5 MCHC 32.5 % Range: 32.0-36.0 RDW 17.5 % (Above high threshold) Range: 11.6-14.8 PLATELETS 261 K/uL Range: 150-400 MPV 7.6 fL Range: 6.0-11.0 %NEUTRO 75.9 % Range: 37.0-80.0 %LYMPHS 13.9 % Range: 13.0-50.0 %MONO 5.4 % Range: 0.0-12.0 %EOS 2.5 % Range: 0.0-7.0 %BASO 0.3 % Range: 0.0-2.5 %GIOVANNI 2.0 % Range: 0.0-5.0 NEUTRO 5.3 K/uL Range: 2.0-6.9 LYMPHS 1.0 K/uL Range: 0.6-3.4 MONOS 0.4 K/uL Range: 0.0-0.9 EOS 0.2 K/uL Range: 0.0-0.7 BASO 0.0 K/uL Range: 0.0-0.2 Plan of Care Name Dates Details Planned Observations CBC w/ Auto Diff 7150 On 29-May-2016 Intent MAGNESIUM 1260 On 29-May-2016 Intent CBC w/ Auto Diff 7150 On 05-Jun-2016 Intent MAGNESIUM 1260 On 05-Jun-2016 Intent CBC w/ Auto Diff 7150 On 12-Jun-2016 Intent Comprehensive Metabolic Panel 1212 On 12-Jun-2016 Intent MAGNESIUM 1260 On 12-Jun-2016 Intent Planned Goals not documented Planned Encounters Appointment; Provider: Poornima العلي M.D. On 19-Feb-2017 10:00 Appointment; Provider: Tristan Garber M.D.|FACPMisti,FACP|Cat,KELLIEP, On May-2016 10:30 Interventions Provided Medication ChangesAzithromycin 250 MG Oral Tablet - [employer]/Procedures/Imaging MAGNESIUM 1260; [facility]150; Done: May 22 2016 11:25AM Instructions Name Dates Details Instructions not documented Encounters Appointment; Tristan Garber M.D.|FACP|MShirleyDShirley,FACP|Cat,FACP, On 01-May-2016 Encounter Diagnosis: Problem not documented 13:30 Appointment; Tristan Garber M.D.|FACP|M.DShirley,FACP|MrTeva,FACP, On 24-Apr-2016 Encounter Diagnosis: Problem not documented 13:00 Appointment; Tristan Garber M.D.|FACP|M.DShirley,FACP|MTreva,FACP, On 03-Apr-2016 Encounter Diagnosis: Problem not documented 16:00 Appointment; Tristan Garber M.D.|FACP|M.DShirley,FACP|MTreva,FACP, On 20-Mar-2016 Encounter Diagnosis: Problem not documented 16:00 Appointment; Tristan Garber M.D.|FACP|M.DShirley,FACP|M.DShirley,FACP, On 13-Mar-2016 Encounter Diagnosis: Problem not documented 09:30 Appointment; Sarkis Woods M.D. On 08-Mar-2016 Encounter Diagnosis: Problem not documented 09:00 Appointment; Tristan Garber M.D.|FACP|MShirleyDShirley,FACP|Cat,FACP, On 22-Feb-2016 Encounter Diagnosis: Problem not documented 14:15 Appointment; Poornima العلي M.D. On 21-Feb-2016 Encounter Diagnosis: Problem not documented 10:15 Appointment; Tristan Garber M.D.|FACP|MShirleyDShirley,FACP|MTreva,FACP, On 01-Feb-2016 Encounter Diagnosis: Problem not documented 16:00 Appointment; Tristan Garber M.D.|FACP|MShirleyDShirley,FACP|Cat,FACP, On 11-Jan-2016 Encounter Diagnosis: Problem not documented 10:15 Appointment; Tristan Garber M.D.|FACP|M.DShirley,FACP|MTreva,FACP, On 28-Dec-2015 Encounter Diagnosis: Problem not documented 09:15 Appointment; Tristan Garber M.D.|FACP|M.DShirley,FACP|MTreva,FACP, On 13-Dec-2015 Encounter Diagnosis: Problem not documented 13:15 Appointment; Tristan Garber M.D.|FACP|M.DShirley,FACP|MTreva,FACP, On Encounter Diagnosis: Problem not documented 09:00 Appointment; Tristan Garber M.D.|FACP|M.DShirley,FACP|MShirleyDShirley,FACP, On Encounter Diagnosis: Problem not documented 11:00"
--- OUTSIDE RECORDS SUMMARY | 2017-03-10 23:34 | External Medical Summary | Summary of Care ---
:1960 Author Name Jcarlos Shelton, FACP, ,, F Tristan Address Unavailable Unavailable , [...] Status: Active Dyspnea (786.09, R06.00) Status: Active Malignant neoplasm of upper lobe of left lung (162.3, C34.12) Status: Active Pulmonary embolism (415.19, I26.99) Status: Active Tachycardia (785.0, R00.0) Status: Active Medications Name Dates Details Metoprolol [...] TABLET DAILY. Refills: 0 Start 17-Feb-2016 Active Enoxaparin Sodium 80 MG/0.8ML Subcutaneous Solution Subcutaneous every 12 hours. Refills: 0 Start 17-Feb-2016 Active Allergies and Adverse Reactions Name Dates Details Penicillins (Allergy) Status: Active Procedures Procedure Dates Details ECG/ EKG (Specialists) Pendin15-Feb-2016 CBC w/ Auto Diff 7150 Ordered: 01-Feb-2016 Comprehensive Metabolic Panel 1212 Ordered: 01-Feb-2016 MAGNESIUM 1260 Ordered: 01-Feb-2016 CBC w/ Auto Diff 7150 Ordered: 01-Feb-2016 BONE SCAN WHOLE BODY Ordered: 01-Feb-2016 Immunization Name Dates Details Immunizations not documented Social History Smoking Status Name Dates Details Unknown if ever smoked Vital Signs Date Test Result Details 01-Feb-2016 15:40 BP Systolic 87 mm[Hg] Status: Comments: Location: ; Position: BP Diastolic 55 mm[Hg] Status: Comments: Location: ; Position: Temperature 97.5 f Status: Comments: Method: Heart Rate 95 /min Status: Comments: Location: ; Weight 147 lb Status: Body Mass Index Calculated 19.94 kg/m2 Status: Body Surface Area Calculated 1.87 m2 Status: Results Date Description Value Details 19-Jan-2016 07:52 CBC w/ Auto Diff 7150 Comments: Manual differential indicated. WBC 10.9 K/uL Range: 4.5-11.0 RBC 3.73 mil/uL (Below low threshold) Range: 4.20-5.40 HGB 10.7 g/dL (Below low threshold) Range: 14.0-18.0 HCT 33.4 % (Below low threshold) Range: 42.0-53.0 MCV 89.4 fL Range: 80.0-99.0 MCH 28.5 pg Range: 27.3-32.5 MCHC 31.9 % (Below low threshold) Range: 32.0-36.0 RDW 20.5 % (Above high threshold) Range: 11.6-14.8 PLATELETS 375 K/uL Range: 150-400 MPV 7.8 fL Range: 6.0-11.0 08:10 MAGNESIUM 1260 MAGNESIUM 2.2 mg/dL Range: 1.8-2.4 08:18 Manual Differential 7400 SEGS 83 % (Above high threshold) Range: 37-80 BANDS 4 % Range: 0-7 LYMPH 8 % (Below low threshold) Range: 13-50 MONO 2 % Range: 0-12 EOSIN 0 % Range: 0-7 BASO 0 % Range: 0-3 CODY LYMPH 0 % Range: 0-0 META 0 % Range: 0-0 MYELO 3 % (Above high threshold) Range: 0-0 PRO 0 % Range: 0-0 BLAST 0 % Range: 0-0 NUC RBC 0 /100 WBC Range: 0-0 SMUDGE 0 /100 WBC PLATELET Adequate Range: Adequate ANISO Slight HYPOCHRO Slight 24-Jan-2016 09:40 CBC w/ Auto Diff 7150 Comments: Manual differential indicated. WBC 9.4 K/uL Range: 4.5-11.0 RBC 3.68 mil/uL (Below low threshold) Range: 4.20-5.40 HGB 10.3 g/dL (Below low threshold) Range: 14.0-18.0 HCT 32.5 % (Below low threshold) Range: 42.0-53.0 MCV 88.1 fL Range: 80.0-99.0 MCH 28.1 pg Range: 27.3-32.5 MCHC 31.9 % (Below low threshold) Range: 32.0-36.0 RDW 20.0 % (Above high threshold) Range: 11.6-14.8 PLATELETS 353 K/uL Range: 150-400 MPV 7.4 fL Range: 6.0-11.0 10:10 Manual Differential 7400 SEGS 90 % (Above high threshold) Range: 37-80 BANDS 1 % Range: 0-7 LYMPH 8 % (Below low threshold) Range: 13-50 MONO 0 % Range: 0-12 EOSIN 1 % Range: 0-7 BASO 0 % Range: 0-3 CODY LYMPH 0 % Range: 0-0 META 0 % Range: 0-0 MYELO 0 % Range: 0-0 PRO 0 % Range: 0-0 BLAST 0 % Range: 0-0 NUC RBC 0 /100 WBC Range: 0-0 SMUDGE 0 /100 WBC PLATELET Adequate Range: Adequate ANISO Mod HYPOCHRO Slight HYPERSEG Present 27-Jan-2016 09:31 CBC w/ Auto Diff 7150 Comments: Manual differential indicated. WBC 16.5 K/uL (Above high threshold) Range: 4.5-11.0 RBC 3.46 mil/uL (Below low threshold) Range: 4.20-5.40 HGB 9.7 g/dL (Below low threshold) Range: 14.0-18.0 HCT 30.0 % (Below low threshold) Range: 42.0-53.0 MCV 86.7 fL Range: 80.0-99.0 MCH 28.2 pg Range: 27.3-32.5 MCHC 32.5 % Range: 32.0-36.0 RDW 19.5 % (Above high threshold) Range: 11.6-14.8 PLATELETS 192 K/uL Range: 150-400 MPV 7.1 fL Range: 6.0-11.0 09:44 MAGNESIUM 1260 MAGNESIUM 1.8 mg/dL Range: 1.8-2.4 10:05 Manual Differential 7400 SEGS 92 % (Above high threshold) Range: 37-80 BANDS 1 % Range: 0-7 LYMPH 5 % (Below [...] WBC PLATELET Adequate Range: Adequate ANISO Slight HYPERSEG Present 31-Jan-2016 09:09 CBC w/ Auto Diff 7150 Comments: Manual differential indicated. WBC 7.4 K/uL Range: 4.5-11.0 RBC 3.44 mil/uL (Below low threshold) Range: 4.20-5.40 HGB 9.7 g/dL (Below low threshold) Range: 14.0-18.0 HCT 29.9 % (Below low threshold) Range: 42.0-53.0 MCV 86.8 fL Range: 80.0-99.0 MCH 28.3 pg Range: 27.3-32.5 MCHC 32.6 % Range: 32.0-36.0 RDW 20.6 % (Above high threshold) Range: 11.6-14.8 PLATELETS 128 K/uL (Below low threshold) Range: 150-400 MPV 7.2 fL Range: 6.0-11.0 09:24 MAGNESIUM 1260 MAGNESIUM 1.9 mg/dL Range: 1.8-2.4 09:41 Manual Differential 7400 SEGS 64 % Range: 37-80 BANDS 13 % (Above high threshold) Range: 0-7 LYMPH 8 % (Below low threshold) Range: 13-50 MONO 10 % Range: 0-12 EOSIN 2 % Range: 0-7 BASO 0 % Range: 0-3 CODY LYMPH 0 % Range: 0-0 META 0 % Range: 0-0 MYELO 3 % (Above high threshold) Range: 0-0 PRO 0 % Range: 0-0 BLAST 0 % Range: 0-0 NUC RBC 0 /100 WBC Range: 0-0 SMUDGE 0 /100 WBC PLATELET Decreased (Abnormal) Range: Adequate HYPOCHRO Slight POLYCHRO Slight TOXIC Present 04-Feb-2016 10:06 CT HEAD WITHOUT AND WITH IV Comments: Exam Date: 2015 08:33Dictation Date: 02/04/2016 10:06 CONTRAST XC HEAD 10:20 CT CHEST/AB WITH ORAL AND IV Comments: Exam Date: 02/04/2016 08: 32Dictation Date: 02/04/2016 10:20 CONTRAST XC CHEST/AB 45 MIN AL 07-Feb-2016 09:53 MAGNESIUM 1260 MAGNESIUM 2.2 mg/dL Range: 1.8-2.4 10:13 CBC w/ Auto Diff 7150 Comments: Manual differential indicated. WBC 20.2 K/uL (Above high threshold) Range: 4.5-11.0 RBC 3.50 mil/uL (Below low threshold) Range: 4.20-5.40 HGB 9.8 g/dL (Below low threshold) Range: 14.0-18.0 HCT 30.4 % (Below low threshold) Range: 42.0-53.0 MCV 87.0 fL Range: 80.0-99.0 MCH 28.1 pg Range: 27.3-32.5 MCHC 32.3 % Range: 32.0-36.0 RDW 20.9 % (Above high threshold) Range: 11.6-14.8 PLATELETS 367 K/uL Range: 150-400 MPV 6.7 fL Range: 6.0-11.0 10:13 Manual Differential 7400 SEGS 75 % Range: 37-80 BANDS 8 % (Above high threshold) Range: 0-7 LYMPH 8 % (Below low threshold) Range: 13-50 MONO 7 % Range: 0-12 EOSIN 1 % Range: 0-7 BASO 0 % Range: 0-3 CODY LYMPH 0 % Range: 0-0 META 1 % (Above high threshold) Range: 0-0 MYELO 0 % Range: 0-0 PRO 0 % Range: 0-0 BLAST 0 % Range: 0-0 NUC RBC 0 /100 WBC Range: 0-0 SMUDGE 0 /100 WBC PLATELET Adequate Range: Adequate ANISO Slight HYPOCHRO Slight POLYCHRO Slight TOXIC Present 09-Feb-2016 13:48 CBC w/ Auto Diff 7150 [...] Slight MACROCYT Slight HYPOCHRO Slight TOXIC Present Plan of Care Name Dates Details Planned Observations Planned Goals not documented Planned Encounters Appointment; Provider: Tristan Garber M.D.|WILLIAN,WILLIAN,HEBERT, On Feb-2016 14:15 Appointment; Provider: Poornima العلي M.D. On 21-Feb-2016 10:15 Appointment; Provider: Schedule Radiology On 17-Feb-2016 11:00 Appointment; Provider: Schedule Radiology On 17-Feb-2016 08:00 Interventions Provided Labs/Procedures/ImagingCBC w/ Auto Diff 7150; Done: Feb 17 2016 7:47AM Instructions Name Dates Details Instructions not documented Encounters Appointment; Tristan Garber M.D.|FACP|Cat,FACP|Cat,FACP, On 01-Feb-2016 Encounter Diagnosis: Problem not documented 16:00 Appointment; Tristan Garber M.D.|FACP|Cat,FACP|Cat,FACP, On 11-Jan-2016 Encounter Diagnosis: Problem not documented 10:15 Appointment; Tristan Garber M.D.|FACP|Cat,FACP|Cat,FACP, On 28-Dec-2015 Encounter Diagnosis: Problem not documented 09:15 Appointment; Tristan Garber M.D.|FACP|Cat,FACP|Cat,FACP, On 13-Dec-2015 Encounter Diagnosis: Problem not documented 13:15 Appointment; Tristan Garber M.D.|FACP|Cat,FACP|Cat,FACP, On Encounter Diagnosis: Problem not documented 09:00 Appointment; Tristan Garber M.D.|FACP|Cat,FACP|Cat,FACP, On Encounter Diagnosis: Problem not documented 11:00"
--- OUTSIDE RECORDS SUMMARY | 2017-03-10 23:34 | External Medical Summary | Summary of Care ---
:1960 Author Name Jcarlos Shelton, HEBERT, ,, F Tristan Address Unavailable Unavailable , Care Team Providers Name Role Phone Claudio Ritchie M.D. 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 Quantity: 6 Refills: 0 Jcarlos Shelton, FACP, , , Tristan F Start 23-Mar-2016 Active Suprep Bowel Prep Oral Solution DILUTE CONTENTS AND USE DIRECTED FOR BOWEL PREP Quantity: 1 Refills: 0 Claudio Ritchie M.D. Start 19-Jun-2016 Active 354 ML Bottle Allergies and Adverse Reactions Name Dates Details Penicillins (Allergy) Status: Active Past Medical History Name Dates Details History of Pericardial effusion (423.9, I31.3) Status: Resolved Procedures Procedure Dates Details History of Creation Of Pericardial Window ECG/ EKG ([facility]) Pendin10-Jul-2016 CBC w/ Auto Diff 7150 Ordered: 06-Jul-2016 [...] smoked Vital Signs Date Test Result Details 06-Jul-2016 15:45 BP Systolic 103 mm[Hg] Status: Comments: Location: ; Position: BP Diastolic 58 mm[Hg] Status: Comments: Location: ; Position: Temperature 98.2 f Status: Comments: Method: Heart Rate 88 /min Status: Comments: Location: ; Weight 163 lb Status: Body Mass Index Calculated 22.11 kg/m2 Status: Body Surface Area Calculated 1.95 m2 Status: 12-Jun-2016 16:11 BP Systolic 98 mm[Hg] Status: Comments: Location: ; Position: BP Diastolic 64 mm[Hg] Status: Comments: Location: ; Position: Temperature 97.7 f Status: Comments: Method: Heart Rate 71 /min Status: Comments: Location: ; Weight 156 lb Status: Body Mass Index Calculated 21.16 kg/m2 Status: Body Surface Area Calculated 1.92 m2 Status: Results Date Description Value Details 12-Jun-2016 10:04 CBC w/ Auto Diff 7150 WBC 7.6 K/uL Range: 4.5-11.0 RBC 4.45 mil/uL Range: 4.20-5.40 HGB 13.8 g/dL (Below low threshold) Range: 14.0-18.0 HCT 41.4 % (Below low threshold) Range: 42.0-53.0 MCV 93.2 fL Range: 80.0-99.0 MCH 30.9 pg Range: 27.3-32.5 MCHC 33.2 % Range: 32.0-36.0 RDW 17.3 % (Above high threshold) Range: 11.6-14.8 PLATELETS 275 K/uL Range: 150-400 MPV 6.2 fL Range: 6.0-11.0 %NEUTRO 76.9 % Range: 37.0-80.0 %LYMPHS 14.2 % Range: 13.0-50.0 %MONO 4.2 % Range: 0.0-12.0 %EOS 2.3 % Range: 0.0-7.0 %BASO 0.7 % Range: 0.0-2.5 %GIOVANNI 1.6 % Range: 0.0-5.0 NEUTRO 5.9 K/uL Range: 2.0-6.9 LYMPHS 1.1 K/uL Range: 0.6-3.4 MONOS 0.3 K/uL Range: 0.0-0.9 EOS 0.2 K/uL Range: 0.0-0.7 BASO 0.1 K/uL Range: 0.0-0.2 10:28 MAGNESIUM 1260 MAGNESIUM 2.1 mg/dL Range: 1.8-2.4 10:28 Comprehensive Metabolic Panel 1212 SODIUM 141 mmol/L Range: 133-144 POTASSIUM 3.8 mmol/L Range: 3.5-5.1 CHLORIDE 106 mmol/L Range: 98-110 CARBON DIOXIDE 24.9 mmol/L Range: 23.0-33.0 ANION GAP 10 mmol/L Range: 6-16 BUN 10 mg/dL Range: 7-18 CREATININE, SERUM 0.91 mg/dL Range: 0.70-1.30 BUN:CREATININE RATIO 11 EST GFR, >60 ml/min Range: >60 EST GFR, NON-AFR BELGIAN >60 ml/min Range: >60 Comments: EST GFR is reported in ml/min per 1.73 m2 of body surface area. ----- GLUCOSE 124 mg/dL (Above high Range: 70-100 threshold) Comments: Variance from previous testing noted.----- ALK PHOSPHATASE 79 U/L Range: 46-116 TOTAL BILIRUBIN 0.30 mg/dL Range: 0.20-1.00 AST 16 U/L Range: 8-35 ALT 14 U/L (Below low Range: 16-63 threshold) ALBUMIN 2.7 g/dL (Below low Range: 3.4-5.0 threshold) TOTAL PROTEIN 7.3 g/dL Range: 6.4-8.2 A/G RATIO 0.6 units (Below low Range: 1.0-1.8 threshold) CALCIUM 8.6 mg/dL Range: 8.5-10.1 19-Jun-2016 10:33 CBC w/ Auto Diff 7150 [...] >60 ml/min Range: >60 EST GFR, NON-AFR BELGIAN >60 ml/min Range: >60 Comments: EST GFR [...] Observations CBC w/ Auto Diff 7150 On 17-Jul-2016 Intent CBC w/ Auto Diff 7150 On 24-Jul-2016 Intent Comprehensive Metabolic Panel 1212 On 24-Jul-2016 Intent MAGNESIUM 1260 On 24-Jul-2016 Intent AMYLASE 1250 On 24-Jul-2016 Intent Lipase 1275 On 24-Jul-2016 Intent FREE T4 3604 On 24-Jul-2016 Intent THYROID STIM. HORMONE 3602 On 24-Jul-2016 Intent Planned Goals not documented Planned Encounters Appointment; Provider: Poornima العلي M.D. On 19-Feb-2017 10:00 Appointment; Provider: Tristan Garber M.D.|WILLIAN,HEBERT DORSEY, On Jul-2016 11:00 Appointment; Provider: Schedule Radiology On 24-Jul-2016 08:00 Appointment; Provider: Claudio Ritchie M.D. On 13-Jul-2016 11:30 Appointment; Provider: Caridad Kuhn On 13-Jul-2016 11:00 Appointment; Provider: Poornima العلي M.D. On 12-Jul-2016 11:30 Interventions Provided Labs/Procedures/ImagingCBC w/ Auto Diff 7150; Done: Jul 10 2016 9:50AM Instructions Name Dates Details Instructions not documented Encounters Appointment; Tristan Garber M.D.|WILLIAN,HEBERT DORSEY, On 12-Jun-2016 Encounter Diagnosis: Problem not documented 15:00 Appointment; Tristan Garber M.D.|FACP|M.D.,FACP|M.D.,FACP, On 16-May-2016 Encounter Diagnosis: Problem not documented 11:00 Appointment; Tristan Garber M.D.|FACP|M.DShirley,FACP|MShirleyDShirley,FACP, On 01-May-2016 Encounter Diagnosis: Problem not documented 13:30 Appointment; Tristan Garber M.D.|FACP|M.D.,FACP|MShirleyDShirley,FACP, On 24-Apr-2016 Encounter Diagnosis: Problem not documented 13:00 Appointment; Tristan Garber M.D.|FACP|M.DShirley,FACP|MShirleyDShirley,FACP, On 03-Apr-2016 Encounter Diagnosis: Problem not documented 16:00 Appointment; Tristan Garber M.D.|FACP|MShirleyDShirley,FACP|Cat,FACP, On 20-Mar-2016 Encounter Diagnosis: Problem not documented 16:00 Appointment; Tristan Garber M.D.|FACP|M.DShirley,FACP|M.DShirley,FACP, On 13-Mar-2016 Encounter Diagnosis: Problem not documented 09:30 Appointment; Sarkis Woods M.D. On 08-Mar-2016 Encounter Diagnosis: Problem not documented 09:00 Appointment; Tristan Garber M.D.|FACP|M.DShirley,FACP|MShirleyDShirley,FACP, On 22-Feb-2016 Encounter Diagnosis: Problem not documented 14:15 Appointment; Poornima العلي M.D. On 21-Feb-2016 Encounter Diagnosis: Problem not documented 10:15 Appointment; Tristan Garber M.D.|FACP|M.DShirley,FACP|MShirleyDShirley,FACP, On 01-Feb-2016 Encounter Diagnosis: Problem not documented 16:00 Appointment; Tristan Garber M.D.|FACP|M.DShirley,FACP|MShirleyDShirley,FACP, On 11-Jan-2016 Encounter Diagnosis: Problem not documented 10:15 Appointment; Tristan Garber M.D.|FACP|M.DShirley,FACP|MShirleyDShirley,FACP, On 28-Dec-2015 Encounter Diagnosis: Problem not documented 09:15 Appointment; Tristan Garber M.D.|FACP|Cat,KELLIEP|Cat,KELLIEP, On 13-Dec-2015 Encounter Diagnosis: Problem not documented 13:15 Appointment; Tristan Garber M.D.|HEBERT|Cat,KELLIEP|Cat,KELLIEP, On Encounter Diagnosis: Problem not documented 09:00 Appointment; Tristan Garber M.D.|KELLIEPMisti,FACP|Cat,KELLIEP, On Encounter Diagnosis: Problem not documented 11:00"
--- OUTSIDE RECORDS SUMMARY | 2017-03-10 23:35 | External Medical Summary ---
:1960 Author Name GENERATED, SYSTEM Care Team Providers Name Role Phone MD MEDINA CLARICE Primary Care Provider [phone] Reason For Visit Reason for Visit from 02/11/2016 12:43 AM:Pt Stated Reason for Adm : Chest pain Chief Complaint CHEST PAIN, LUNG CANCER Social History Social History from 02/13/2016 12:50 PM:Tobacco Use? : Current Everyday SmokerSocial History from 02/11/2016 12:43 AM:Tobacco Use? : Current Everyday Smoker Functional Status Functional Status from 02/13/2016 8:13 AM:LOC : AlertOriented To : Person,Place, Time,EventWeight Bearing Status : FullAssist Level : Independent# Assists : IndependentFunctional Status from 02/12/2016 9:51 PM:LOC : AlertOriented To : Person,Place,Time,EventWeight Bearing Status : FullAssist Level : Partial# Assists : 1Functional Status from 02/12/2016 9:27 AM:LOC : AlertOriented To : Person,Place,Time,EventWeight Bearing Status : FullAssist Level : Independent# Assists : IndependentFunctional Status from 02/11/2016 9:00 PM:LOC : AlertOriented To : Person,Place,TimeWeight Bearing Status : FullAssist Level : Partial# Assists : 1Functional Status from 02/11/2016 9:23 AM:LOC : AlertOriented To : Person,Place,Time,EventWeight Bearing Status : FullAssist Level : Independent# Assists : 1Functional Status from 02/11/2016 12:43 AM:LOC : AlertOriented To : Person,Place,Time,EventWeight Bearing Status : FullAssist Level : Partial# Assists : 1 Vital Signs Hospital Vital Signs from 02/13/2016 11:02 AM:Height : 5/11 ft,inTemperature : 98.0 FPulse : 110Respirations : 20BP : 111/70Hospital Vital Signs from 2015 8:13 AM:Heart Rate : 85Hospital Vital Signs from 02/13/2016 7:22 AM:Height : 5/11 ft,inTemperature : 96.3 FPulse : 73Respirations : 20BP : 115/64Hospital Vital Signs from 02/13/2016 4:47 AM:Weight : 64.9/ kgHeight : 5/11 ft, inHospital Vital Signs from 02/13/2016 2:57 AM:Weight : 81/ kgHeight : 5/11 ft, inHospital Vital Signs from 02/13/2016 2:15 AM:Height : 5/11 ft,inTemperature : 97.4 FPulse : 84Respirations : 16BP : 107/64Hospital Vital Signs from 2015 10:43 PM:Height : 5/11 ft,inTemperature : 96.4 FPulse : 78Respirations : 20BP : 117/57Hospital Vital Signs from 02/12/2016 7:38 PM:Height : 5/11 ft, inTemperature : 98.0 FPulse : 83Respirations : 20BP : 106/60Hospital Vital Signs from 02/12/2016 2:04 PM:Height : 5/11 ft,inTemperature : 97.0 FPulse : 87Respirations : 18BP : 132/78Hospital Vital Signs from 02/12/2016 10:35 AM: Height : 5/11 ft,inTemperature : 97.2 FPulse : 72Respirations : 18BP : 111/ 68Hospital Vital Signs from 02/12/2016 9:27 AM:Heart Rate : 73Hospital Vital Signs from 02/12/2016 7:06 AM:Height : 5/11 ft,inTemperature : 97 FPulse : 67Respirations : 16BP : 123/58Hospital Vital Signs from 02/11/2016 10:30 PM: Height : 5/11 ft,inTemperature : 96.6 FPulse : 58Respirations : 18BP : 107/ 55Hospital Vital Signs from 02/11/2016 9:00 PM:Heart Rate : 59Hospital Vital Signs from 02/11/2016 7:30 PM:Height : 5/11 ft,inTemperature : 97.6 FPulse : 62Respirations : 18BP : 120/62Hospital Vital Signs from 02/11/2016 1:52 PM: Height : 5/11 ft,inTemperature : 96.6 FPulse : 63Respirations : 18BP : 136/ 71Hospital Vital Signs from 02/11/2016 11:14 AM:Height : 5/11 ft,inTemperature : 96.3 FPulse : 67Respirations : 18BP : 119/68Hospital Vital Signs from 2015 9:23 AM:Heart Rate : 48Hospital Vital Signs from 02/11/2016 7:46 AM:Height : 5/11 ft,inTemperature : 96.9 FPulse : 50Respirations : 18BP : 110/59Hospital Vital Signs from 02/11/2016 7:45 AM:Height : 5/11 ft,inHospital Vital Signs from 02/11/2016 4:03 AM:Height : 5/11 ft,inTemperature : 96.3 FPulse : 60Respirations : 20BP : 103/56Hospital Vital Signs from 02/11/2016 12:46 AM: Weight : 67.2/ kgHeight : 5/11 ft,inTemperature : 96.5 FPulse : 56Respirations : 20BP : 121/68Hospital Vital Signs from 02/11/2016 12:43 AM:Weight : 67.3/ kgHeight : 5/11 ft,in Results Chemistry from 02/13/2016 4:48 [id number] MMOL/L L (136-145 MMOL/L) POTASSIUM3.9 MMOL/L (3.5-5.1 MMOL/L) RUPLZCLO03 MMOL/L (98-107 MMOL/L) SUD643.1 MMOL/L (21.0-32.0 MMOL/L) *ANION GAP6.9 MMOL/L L (8.0-16.0 MMOL/L) BUN13 MG/DL (7-18 MG/DL) CREATININE0.61 MG/DL L (0.70-1.30 MG/DL) *BUN/CREATININE RATIO21.3 H (9.1-17.0 ) DKSOTOG273 MG/DL H (65-99 MG/DL) *GFR EST NON AFR CENTRAL AFRICAN>90 ML/MIN *GFR EST AFR AMER>90 ML/MIN CALCIUM9.3 MG/DL (8.5-10.1 MG/DL)Chemistry from 02/12/2016 4:35 [id number] MMOL /L (136-145 MMOL/L) POTASSIUM4.0 MMOL/L (3.5-5.1 MMOL/L) KCJGJCGZ682 MMOL/L (98-107 MMOL/L) RQF619.4 MMOL/L (21.0-32.0 MMOL/L) *ANION GAP7.6 MMOL/L L (8.0-16.0 MMOL/L) BUN17 MG/DL (7-18 MG/DL) CREATININE0.65 MG/DL L (0.70-1.30 MG/DL) *BUN/CREATININE RATIO26.2 H (9.1-17.0 ) MZIJSII151 MG/DL H (65-99 MG/DL) *GFR EST NON AFR CENTRAL AFRICAN>90 ML/MIN *GFR EST AFR AMER>90 ML/MIN CALCIUM9.0 MG/DL (8.5-10.1 MG/DL)Chemistry from 02/11/2016 1:33 PMTROPONIN-I< 0.017 NG/ML (0.000-0.056 NG/ML)Chemistry from 02/11/2016 8:44 ZXDVZGCG393 MMOL/ L (136-145 MMOL/L) POTASSIUM4.3 MMOL/L (3.5-5.1 MMOL/L) SMMVCTXW529 MMOL/L (98-107 MMOL/L) ZLN526.1 MMOL/L (21.0-32.0 MMOL/L) *ANION GAP11.9 MMOL/L (8.0-16.0 MMOL/L) BUN19 MG/DL H (7-18 MG/DL) CREATININE0.74 MG/DL (0.70-1.30 MG/DL) *BUN/CREATININE RATIO25.7 H (9.1-17.0 ) TLFRBPI46 MG/DL (65-99 MG/DL) *GFR EST NON AFR CENTRAL AFRICAN>90 ML/MIN *GFR EST AFR AMER>90 ML/MIN CALCIUM9.0 MG/DL (8.5-10.1 MG/DL) BILIRUBIN TOTAL0.20 MG/DL (0.20-1.00 MG/DL) TOTAL PROTEIN6.8 GM/DL (6.4-8.2 GM/DL) ALBUMIN2.3 GM/DL L (3.4-5.0 GM/DL) *GLOBULIN4.5 GM/DL H (2.3-3.5 GM/DL) *A/G RATIO0.5 MG/DL L (1.5-2.2 MG/DL) ALK PHOS84 U/L (46-116 U/L) ALT (SGPT)13 U/L L (14-59 U/L) AST (SGOT)13 U/L L (15-37 U/L) TROPONIN-I<0.017 NG/ML (0.000-0.056 NG/ML) FSSLWKLNJHF459 MG/DL (50-199 MG/DL) MFZTTOTGPISLP719 MG/DL H (0-149 MG/DL) HDL CWLNEFTXPVN46 MG/DL L (40-60 MG/DL) *LDL (CALCULATED) CHOL70 MG/DL (0-99 MG/DL)Hematology from 02/13/2016 4:48 AMWBC10.1 X10e3/UL (3.6-11.2 X10e3/UL) RBC3.48 X10e6/UL L (4.06-5.63 X10e6/UL) HEMOGLOBIN9.7 G/DL L (12.5-16.3 G/DL) PFZSAFBNWI20.4 % L (36.7-47.1 %) *MCV84.4 FL (80.0-100.0 FL) *MCH27.8 PG (27.0-33.0 PG) *MCHC32.9 G/DL (32.0-36.0 G/DL) *RDW22.0 % H (12.3-17.0 %) *RDWSD64.3 H (37.1-47.8 ) HCXNEAAW946 X10e3/UL (159-386 X10e3/UL) *MPV7.4 FL (7.4-10.4 FL) AUTOMATED DIFFPERFORMED SEGS92.8 % *LYMPHOCYTES4.9 % *MONOCYTES0.9 % *EOSINOPHILS0.5 % *BASOPHILS0.9 % *ABSOLUTE NEUTROPHILS9.40 X10e3/UL H (1.80-7.80 X10e3/UL) *ABSOLUTE LYMPHOCYTES0.50 X10e3/UL L (1.00-3.00 X10e3/UL) *ABSOLUTE MONOCYTES0.10 X10e3/UL L (0.30-1.00 X10e3/UL) *ABSOLUTE EOSINOPHILS0.00 X10e3/UL (0.00-0.50 X10e3/UL) *ABSOLUTE BASOPHILS0.10 X10e3/UL (0.00-0.20 X10e3/UL) *TEARDROP CELLS1+Hematology from 02/12/2016 4:35 AMWBC12.3 X10e3/UL H (3.6-11.2 X10e3/UL) RBC3.46 X10e6/UL L (4.06-5.63 X10e6/UL) HEMOGLOBIN9.4 G/DL L (12.5-16.3 G/DL) HUMGQRTSAM00.3 % L (36.7-47.1 %) *MCV84.8 FL (80.0-100.0 FL) *MCH27.3 PG (27.0-33.0 PG) *MCHC32.1 G/DL (32.0-36.0 G/DL) *RDW22.0 % H (12.3-17.0 %) *RDWSD64.8 H (37.1-47.8 ) HIWQKTWQ635 X10e3/UL H (159-386 X10e3/UL) *MPV7.3 FL L (7.4-10.4 FL) AUTOMATED DIFFPERFORMED SEGS94.0 % *LYMPHOCYTES4.1 % *MONOCYTES1.7 % *EOSINOPHILS0.1 % *BASOPHILS0.1 % *ABSOLUTE KNWZGOSHDYN48.60 X10e3/UL H (1.80-7.80 X10e3/UL) *ABSOLUTE LYMPHOCYTES0.50 X10e3/UL L (1.00-3.00 X10e3/UL) *ABSOLUTE MONOCYTES0.20 X10e3/UL L (0.30-1.00 X10e3/UL) *ABSOLUTE EOSINOPHILS0.00 X10e3/UL (0.00-0.50 X10e3/UL) *ABSOLUTE BASOPHILS0.00 X10e3/UL (0.00-0.20 X10e3/UL) *POLYCHROMASIA1+ ANISOCYTOSIS3+Hematology from 02/11/2016 8:44 AMWBC15.1 X10e3/UL H (3.6-11.2 X10e3/UL) RBC3.34 X10e6/UL L (4.06-5.63 X10e6/UL) HEMOGLOBIN9.2 G/DL L (12.5-16.3 G/DL) ASQTTBWGHH84.6 % L (36.7-47.1 %) *MCV85.6 FL (80.0-100.0 FL) *MCH27.5 PG (27.0-33.0 PG) *MCHC32.1 G/DL (32.0-36.0 G/DL) *RDW22.2 % H (12.3-17.0 %) *RDWSD65.6 H (37.1-47.8 ) YKMBYTGX642 X10e3/UL H (159-386 X10e3/UL) *MPV7.4 FL (7.4-10.4 FL) *POLYCHROMASIA1+ ANISOCYTOSIS3+ *TEARDROP CELLS1+ STOMATOCYTES1+ *TOXIC GRANULATION1+Urinalysis from 02/11/2016 3:46 AM*URINE COLORYELLOW (STRAW /YELL/DK YELL ) *URINE APPEARANCECLEAR (CLEAR ) URINE PH5.5 (5.0-8.0 ) URINE SPECIFIC GRAVITY1.025 (<=1.005->=1.030 ) *URINE GLUCOSENEGATIVE MG/DL (NEGATIVE MG/DL) *URINE BILIRUBINNEGATIVE (NEGATIVE ) *URINE KETONESNEGATIVE MG/DL (NEGATIVE MG/DL) *URINE BLOODTRACE-INTACT A (NEGATIVE ) *URINE PROTEINNEGATIVE MG/DL (NEGATIVE MG/DL) *URINE UROBILINOGEN0.2 EU/DL (0.2-1.0 EU/DL) *URINE NITRITESNEGATIVE (NEGATIVE ) *URINE LEUKOCYTESNEGATIVE (NEGATIVE ) *MICROSCOPIC EXAM PERFORMEDPERFORMED *WBC URINE1-5 /HPF (0-5 /HPF) *RBC URINE1-5 /HPF A (0-1 /HPF) *SQUAMOUS EP. CELLSFEW /LPF (NEG-FEW /LPF) *MUCOUS THREADSFEW /LPF A (NEGATIVE /LPF)Coagulation from 02/13/2016 4:48 AM* PROTHROMBIN TIME11.0 SECONDS (9.4-11.5 SECONDS) *INR1.1 (0.9-1.1 )Coagulation from 02/12/2016 4:35 AM*PROTHROMBIN TIME10.7 SECONDS (9.4-11.5 SECONDS) *INR1.0 (0.9-1.1 ) Problems Encounter Diagnosis Acute Pain Status:Active.Atrial Fibrillation Status:Active.Benign Essential Hypertension Status:Active.Deep Venous Thrombosis of Upper Extremity Status: Active.Infection Risk Status:Active.Malignant Tumor of Lung Status: Active.Thrombocytosis Status:Active.Additional Problems Cellulitis of Trunk Comment:Problem resolved by [facility] Workflow upon Discharge , Status:Resolved.Deep Venous Thrombosis Comment:Problem resolved by [facility] Workflow upon Discharge, Status:Resolved.Fall Risk Comment:Problem resolved by [facility] Workflow upon Discharge, Status:Resolved.Fall Risk Comment:Problem resolved by [facility] Workflow upon Discharge, Status:Resolved.History of Deep Vein Thrombosis Comment:Problem resolved by [facility] Workflow upon Discharge, Status:Resolved.History of Pulmonary Embolus Comment:Problem resolved by [facility] Workflow upon Discharge, Status:Resolved.Mobility Impairment Comment: Problem resolved by [facility] Work[facility] upon Discharge, Status:Resolved.Mobility Impairment Comment:Problem resolved by [facility] Workflow upon Discharge, Status: Resolved.Non-Small Cell Lung Cancer Comment:Problem resolved by [facility] Workflow upon Discharge, Status:Resolved.Non-Small Cell Lung Cancer Comment: Problem resolved by [facility] Workflow upon Discharge, Status: Resolved.Nutritional Deficiency Comment:Problem resolved by [facility] Workflow upon Discharge, Status:Resolved.Skin Integrity Impairment Risk Comment:Problem resolved by [facility] Workflow upon Discharge, Status:Resolved.Supraventricular Tachycardia Comment:Problem resolved by [facility] Workflow upon Discharge, Status: Resolved.Tobacco Use Comment:Problem resolved by [facility] Workflow upon Discharge , Status:Resolved. Encounters Encounter Diagnosis Acute Pain Status:Active.Atrial Fibrillation Status:Active.Benign Essential Hypertension Status:Active.Deep Venous Thrombosis of Upper Extremity Status: Active.Infection Risk Status:Active.Malignant Tumor of Lung Status: Active.Thrombocytosis Status:Active. Plan of Care Follow-up Appointments from 02/13/2016 12:50 PM:#1 Office appointment: : Dr Martino # 1 : [facility]: [address] [place]- or #2 Office appointment: : INR 02-14-16 before appt#3 Office appointment: : PCP in 2-3 daysTreatment Plan from 02/13/2016 11:05 AM: Care Management Note : Pt denies the need for home health. States he can give himself Lovenox shots at home and has given himself shots before. States he knows he is to follow up for INR tomorrow. Pt declines referral to Care Transitions. Pt denies any concerns or needs at discharge.Treatment Plan from 2:21 PM:Care Management Note : LYNSEY spoke to AMBROSIO Moreno regarding dc planning. Pt is requesting to be dc tohome today. AMBROSIO is recommending pt to continue hospitalization till INR is theraputic (now a 1). Pt is concerned about paying bills due today. LYNSEY spoke with pt. Discussed option of staying till theraputic as recommended. Identified his providers are not open till Sunday and he has time before deliquent on bills. He requested to talk to AMBROSIO again. LYNSEY offered pt information about DPOA forms. He stated he was intersted and would consider his sister who lives in [place]. he will need to talk to her first and get her address. Lynsey provided pt with DPOA form to take with him at dc. LYNSEY informedAMBROSIO Moreno pt wants to talk with her about his dc. No other dc needs identified. Possible dc onSunday or Sunday.Treatment Plan from 02/11/2016 10:03 AM:Care Management Note :Patient was admitted as observation d/ t chest associated with nausea and heartburn. Troponin's werenegative. CXR showed Persistent left suprahilar mass. No acute abnormality. CT per H&P showed a "mass effect upon the trachea, which was a new finding." There was concerns for a DVT and a Venousdoppler of the right arm and neck was complete.It showed Acute occlusive right upper extremity deep vein thrombosis involving the right innominate vein, right subclavian vein, internal jugular vein and basilic vein. Subacute appearing thrombus in the left basilic vein just below the elbow. Multiple necrotic enlarged cervical and supraclavicular lymph nodesconsistent metastatic diseasePatient was placed on tele, IV fluids running at 75 ml/hr, Oncology was consulted, PT/OT were ordered, and patient will bridge on Lovenox and Coumadin. IV Protonix were started as well. CM will continue to follow.BUN 21, Creat 0.75, Alb 2.5, WBC 15.1, Hgb 9.296.9, 50, 18, 110/59, 99% RATreatment Plan from 02/11/2016 9:42 AM:Care Management Note : This patient familiar to me from previous hospitalizations. He reports he isliving at home by himself and has support of family if needs arise. He has already been given info on [facility] for supportive services. He currently does not receive any agency services in the home and denies need for home health or palliative care at this time. My contact info given if needs arise. He plans to return home at dismissal. Will continue to follow. Social work assessment complete and patient high risk for readmission. Procedures Completed Procedure Code: [id number] Procedure Name: not valued, on 12/19/2015 10: 46 AMCompleted Procedure Code: [id number] Procedure Name: not valued, on 12/19/2015 10:38 AMCompleted Procedure Code: [id number] Procedure Name: not valued, on 2015 12:00 AMCompleted Procedure Code: [id number] Procedure Name: not valued, on 12:00 AM Immunizations No immunizations administered or ordered. Hospital Course Hospital Discharge Instructions How to care for yourself at home from 02/13/2016 12:50 PM:Discharge Activity : Activity as tolerated,May Shower,Do not engage in sports, heavy work or heavy lifting until your physician gives permissionDischarge Diet : Diet as toleratedCall your doctor if: : Fever over 101 F or severe chills,Chest pain or other unexplained symptoms,Tingling or numbness develops,A sudden increase or decrease in weight,You have persistent or worsening symptoms,If you have Heart Failure and you gain 3 pounds within 1 week or your symptoms worsen. (Weigh at home tomorrow morning)Specific Discharge Teaching Instructions provided: : YesSpecific Discharge Teaching Instructions Reviewed: : Stop SmokingDischarge on Warfarin : YesAppointment for INR : 02/14/16 Allergies, Adverse Reactions, Alerts Penicillins causes Severe Hives. Onset 1967.Latex Allergy has not been assessed.IV Contrast Allergy has not been assessed.No Known Food Allergies. Medication It is the responsibility of the patient or patient customer success representative to confirm the list of medicationswith either the patient's personal care provider or the patient's follow-up care provider to ensure the patient has an appropriate list of medications to take at home. Discharge medicationsNew medicationsnitroglycerin (Nitrostat) 0.4 mg Tablet, Sublingual, Ordered By: GREY HAGAN APRN Directions: 1 tab SL Q5min up to 3 times for chest pain sublingual as directed for CHEST PAIN warfarin (Coumadin) 7.5 mg Tablet, Ordered By: GREY HAGAN APRN Directions: 1 tablet oral daily enoxaparin 100 mg/mL Syringe, Ordered By: GREY HAGAN APRN Directions: 100 mg subcutaneous daily at bedtime Continued medicationsfoLIC Acid 1 mg Tablet, Ordered By: GREY HAGAN APRN Directions: 1 tablet oral daily ondansetron 8 mg tablet,disintegrating, Ordered By: GREY HAGAN APRN Directions: 1 tablet oral every six hours PRN nausea or vomiting prochlorperazine maleate 10 mg Tablet, Ordered By: GREY HAGAN APRN Directions: 1 tablet oral every six hours PRN nausea or vomiting Changed medicationsdexamethasone 4 mg Tablet, Ordered By: GREY MASTERS APRN Directions: 1 tablet oral as directed Additional Instructions: Take 1 tablet twice daily the day before and day afterAlimta treatment metoprolol tartrate 25 mg Tablet, Ordered By: GREY HAGAN APRN Directions: 1 tablet oral twice a day every morning and at bedtime Stopped medicationsdabigatran etexilate (Pradaxa) 150 mg Capsule Directions: 1 capsule oral twice a day
--- OUTSIDE RECORDS SUMMARY | 2017-03-10 23:35 | External Medical Summary | Summary of Care ---
:1960 Author Name Poornima العلي M.D. Address [address] Unavailable [place], [place] [id number] Care Team Providers Name Role Phone Poornima العلي M.D. Unavailable Unavailable Jcarlos Shelton, HEBERT, ,, [...] of Creation Of Pericardial Window Status: Resolved Medications Name Dates Details Metoprolol Tartrate 50 MG Oral Tablet TAKE 1 TABLET TWICE DAILY. Refills: 0 Start 28-Dec-2015 Active Prochlorperazine Maleate 10 MG [...] 12 hours. Refills: 0 Start 17-Feb-2016 Active Dexamethasone 4 MG Oral Tablet one [...] (Allergy) Status: Active Procedures Procedure Dates Details History of Creation Of Pericardial Window ECG/ EKG ([facility]) Pendin15-Feb-2016 CBC w/ Auto [...] m2 Status: Results Date Description Value Details 24-Jan-2016 09:40 CBC w/ Auto Diff 7150 [...] 02/04/2016 10:20 CONTRAST XC CHEST/AB 45 MIN IN 07-Feb-2016 09:53 MAGNESIUM 1260 MAGNESIUM 2.2 mg/dL [...] Exam Date: 02/17/2016 07:52Dictation Date: 02/17/2016 11:46 Plan of Care Name Dates Details Planned Observations ECG/ EKG ([facility]) On 21-Feb-2016 Intent Planned Goals not documented Planned Encounters Appointment; Provider: Tristan Garber M.D.|FACP|MShirleyDShirley,FACP|Cat,FACP, On Feb-2016 14:15 Appointment; Provider: Poornima العلي M.D. On 21-Feb-2016 10:15 Instructions Name Dates Details Instructions not documented Encounters Appointment; Tristan Garber M.D.|FACP|MShirleyDShirley,FACP|Cat,FACP, On 01-Feb-2016 Encounter Diagnosis: Problem not documented 16:00 Appointment; Tristan Garber M.D.|FACP|MShirleyDShirley,FACP|Cat,FACP, On 11-Jan-2016 Encounter Diagnosis: Problem not documented 10:15 Appointment; Tristan Garber M.D.|FACP|M.DShirley,FACP|MTreva,FACP, On 28-Dec-2015 Encounter Diagnosis: Problem not documented 09:15 Appointment; Tristan Garber M.D.|FACP|M.DShirley,FACP|MTreva,FACP, On 13-Dec-2015 Encounter Diagnosis: Problem not documented 13:15 Appointment; Tristan Garber M.D.|FACP|M.DShirley,FACP|MTreva,FACP, On Encounter Diagnosis: Problem not documented 09:00 Appointment; Tristan Garber M.D.|FACP|M.DShirley,FACP|MTreva,FACP, On Encounter Diagnosis: Problem not documented 11:00"
--- OUTSIDE RECORDS SUMMARY | 2017-03-10 23:35 | External Medical Summary | Summary of Care ---
:1960 Author Name Sarkis Woods M.D. 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 Dehydration (276.51, E86.0) Status: Active Medications Name Dates Details Folic [...] for nausea Quantity: 20 Refills: 3 Jcarlos Ogden.Janak., FACP, , , Tristan F Start 29-Dec-2015 [...] Of Pericardial Window ECG/ EKG ([facility]) Pendin21-Feb-2016 PROTIME PANEL 7000 Ordered: 28-Feb-2016 Comprehensive Metabolic Panel 1212 Ordered: 22-Feb-2016 CBC [...] m2 Status: Results Date Description Value Details 07-Feb-2016 09:53 MAGNESIUM 1260 MAGNESIUM 2.2 mg/dL [...] >60 ml/min Range: >60 EST GFR, NON-AFR MONGOLIAN >60 ml/min Range: >60 Comments: EST GFR [...] Diff 7150 Comments: Critical result called to [facility] by Sigrid Taylor on 02/24/2016 at 3:16 [...] Range: 150-400 MPV 7.8 fL Range: 6.0-11.0 Plan of Care Name Dates Details Planned Observations Planned Goals not documented Planned Encounters Appointment; Provider: Poornima العلي M.D. On 19-Feb-2017 10:00 Appointment; Provider: Tristan Garber M.D.|FACP|M.DShirley,FACP|MShirleyDShirley,FACP, On Feb-2016 14:15 Appointment; Provider: Sarkis Woods M.D. On 08-Mar-2016 10:00 Instructions Name Dates Details Instructions not documented Encounters Appointment; Tristan Garber M.D.|FACP|M.DShirley,FACP|M.DShirley,FACP, On 22-Feb-2016 Encounter Diagnosis: Problem not documented 14:15 Appointment; Poornima العلي M.D. On 21-Feb-2016 Encounter Diagnosis: Problem not documented 10:15 Appointment; Tristan Garber M.D.|FACP|M.DShirley,FACP|M.DShirley,FACP, On 01-Feb-2016 Encounter Diagnosis: Problem not documented 16:00 Appointment; Tristan Garber M.D.|FACP|M.D.,FACP|M.DShirley,FACP, On 11-Jan-2016 Encounter Diagnosis: Problem not documented 10:15 Appointment; Tristan Garber M.D.|FACP|M.D.,FACP|M.DShirley,FACP, On 28-Dec-2015 Encounter Diagnosis: Problem not documented 09:15 Appointment; Tristan Garber M.D.|FACP|M.D.,FACP|M.D.,FACP, On 13-Dec-2015 Encounter Diagnosis: Problem not documented 13:15 Appointment; Tristan Garber M.D.|FACP|M.D.,FACP|M.D.,FACP, On Encounter Diagnosis: Problem not documented 09:00 Appointment; Tristan Garber M.D.|FACP|M.D.,FACP|M.D.,FACP, On Encounter Diagnosis: Problem not documented 11:00"
--- OUTSIDE RECORDS SUMMARY | 2017-03-10 23:35 | External Medical Summary ---
:1960 Author Name GENERATED, SYSTEM Care Team Providers Name Role Phone MD MEDINA CLARICE Primary Care Provider [phone] Reason For Visit Chief Complaint HEMMORHOIDS Social History Functional Status Vital Signs Results Hematology from 03/11/2016 2:24 PMWBC10.8 X10e3/UL (3.6-11.2 X10e3/UL) RBC3.81 X10e6/UL L (4.06-5.63 X10e6/UL) OAEJHRRTCC88.9 G/DL L (12.5-16.3 G/DL) JQTREWSXWE82.6 % L (36.7-47.1 %) *MCV88.3 FL (80.0-100.0 FL) *MCH28.7 PG (27.0-33.0 PG) *MCHC32.5 G/DL (32.0-36.0 G/DL) *RDW22.5 % H (12.3-17.0 %) *RDWSD69.1 H (37.1-47.8 ) [id number] X10e3/UL (159-386 X10e3/UL) *MPV7.3 FL L (7.4-10.4 FL) AUTOMATED DIFFPERFORMED SEGS85.1 % *LYMPHOCYTES6.6 % *MONOCYTES7.1 % *EOSINOPHILS0.2 % *BASOPHILS1.0 % *ABSOLUTE NEUTROPHILS9.20 X10e3/UL H (1.80-7.80 X10e3/UL) *ABSOLUTE LYMPHOCYTES0.70 X10e3/UL L (1.00-3.00 X10e3/UL) *ABSOLUTE MONOCYTES0.80 X10e3/UL (0.30-1.00 X10e3/UL) *ABSOLUTE EOSINOPHILS0.00 X10e3/UL (0.00-0.50 X10e3/UL) *ABSOLUTE BASOPHILS0.10 X10e3/UL (0.00-0.20 X10e3/UL) *POLYCHROMASIA1+ *HYPOCHROMASIA1+ *TEARDROP CELLS1+Coagulation from 03/11/2016 2:24 PM*PROTHROMBIN TIME13.6 SECONDS H (9.4-11.5 SECONDS) *INR1.3 H (0.9-1.1 ) Problems Encounter Diagnosis No relevant problems exist. Additional Problems Acute Pain Comment:Problem resolved by [facility] Work[employer] upon Discharge, Status: Resolved.Acute Pain Comment:Problem resolved by [facility] Work[facility] upon Discharge , Status:Resolved.Acute Pain Comment:Problem resolved by [facility] Workflow upon Discharge, Status:Resolved.Acute Pain Comment:Problem resolved by [facility] Workflow upon Discharge, Status:Resolved.Anemia Comment:Problem resolved by [facility] Work[employer] upon Discharge, Status:Resolved.Atrial Fibrillation Comment: Problem resolved by [facility] Workflow upon Discharge, Status:Resolved.Benign Essential Hypertension Comment:Problem resolved by [facility] Work[employer] upon Discharge, Status:Resolved.Cellulitis of Trunk Comment:Problem resolved by [facility] Workflow upon Discharge, Status:Resolved.Deep Venous Thrombosis Comment: Problem resolved by [facility] Work[employer] upon Discharge, Status:Resolved.Deep Venous Thrombosis of Upper Extremity Comment:Problem resolved by [facility] Workflow upon Discharge, Status:Resolved.Fall Risk Comment:Problem resolved by [facility] Work[employer] upon Discharge, Status:Resolved.Fall Risk Comment:Problem resolved by [facility] Workflow upon Discharge, Status:Resolved.Fall Risk Comment: Problem resolved by [facility] Workflow upon Discharge, Status:Resolved.History of Deep Vein Thrombosis Comment:Problem resolved by [facility] Work[facility] upon Discharge , Status:Resolved.History of Pulmonary Embolus Comment:Problem resolved by [facility] Workflow upon Discharge, Status:Resolved.Infection Risk Comment:Problem resolved by [facility] Workflow upon Discharge, Status:Resolved.Infection Risk Comment:Problem resolved by [facility] Workflow upon Discharge, Status: Resolved.Infection Risk Comment:Problem resolved by [facility] Workflow upon Discharge, Status:Resolved.Infection Risk Comment:Problem resolved by [facility] Workflow upon Discharge, Status:Resolved.Malignant Tumor of Lung Comment: Problem resolved by [facility] Work[facility] upon Discharge, Status:Resolved.Mobility Impairment Comment:Problem resolved by [facility] Workflow upon Discharge, Status: Resolved.Mobility Impairment Comment:Problem resolved by [facility] Workflow upon Discharge, Status:Resolved.Non-Small Cell Lung Cancer Comment:Problem resolved by [facility] Workflow upon Discharge, Status:Resolved.Non-Small Cell Lung Cancer Comment:Problem resolved by [facility] Workflow upon Discharge, Status: Resolved.Nutritional Deficiency Comment:Problem resolved by [facility] Workflow upon Discharge, Status:Resolved.Paroxysmal Atrial Fibrillation Comment:Problem resolved by [facility] Work[facility] upon Discharge, Status:Resolved.Skin Integrity Impairment Risk Comment:Problem resolved by [facility] Work[facility] upon Discharge, Status:Resolved.Supraventricular Tachycardia Comment:Problem resolved by [facility] Workflow upon Discharge, Status:Resolved.Thrombocytosis Comment:Problem resolved by [facility] Work[facility] upon Discharge, Status:Resolved.Tobacco Use Comment :Problem resolved by [facility] Work[facility] upon Discharge, Status:Resolved. Encounters Encounter Diagnosis No relevant problems exist. Plan of Care Procedures Completed Procedure Code: [id number] Procedure Name: not valued, on 12/19/2015 10: 46 AMCompleted Procedure Code: [id number] Procedure Name: not valued, on 12/19/2015 10:38 AMCompleted Procedure Code: [id number] Procedure Name: not valued, on 2015 12:00 AMCompleted Procedure Code: [id number] Procedure Name: not valued, on 12:00 AM Immunizations No immunizations administered or ordered. Hospital Course Hospital Discharge Instructions Allergies, Adverse Reactions, Alerts Penicillins causes Severe Hives. Onset 1967.Latex Allergy has not been assessed.IV Contrast Allergy has not been assessed.No Known Food Allergies. Medication Medication reconciliation has not been performed.
--- OUTSIDE RECORDS SUMMARY | 2017-03-10 23:35 | External Medical Summary | Summary of Care ---
:1960 Author Name Jcarlos Shelton, KELLIEP, ,, F Tristan Address Unavailable Unavailable , Care Team Providers Name Role Phone Cordell Villa Unavailable Unavailable Jcarlos Shelton, KELLIEP, ,, F Tristan Unavailable Unavailable Mlau Rosales Unavailable Unavailable Unavailable Unavailable Unavailable Functional [...] >60 ml/min Range: >60 EST GFR, NON-AFR TAJIK >60 ml/min Range: >60 Comments: EST GFR [...] >60 ml/min Range: >60 EST GFR, NON-AFR TAJIK >60 ml/min Range: >60 Comments: EST GFR [...] WBC PLATELET Adequate Range: Adequate ANISO Slight [id number] 10:44 CBC w/ Auto Diff 7150 Comments: [...] >60 ml/min Range: >60 EST GFR, NON-AFR TAJIK >60 ml/min Range: >60 Comments: EST GFR [...] On 19-Feb-2017 10:00 Appointment; Provider: Tristan Garber M.D.|WILLIAN,KELLIEPHEBERT Chappell, On October-2016 11:30 Instructions Name Dates Details Instructions not documented Encounters Appointment; Tristan Garber M.D.|FACP|MTreva,FACP|Cat,HEBERT, On Encounter Diagnosis: Problem not documented 11:15 Appointment; Tristan Garber M.D.|KELLIEP|MTreva,KELLIEP|Cat,HEBERT, On Encounter Diagnosis: Problem not documented 10:15 Appointment; Tristan Garber M.D.|FACP|MTreva,FACP|Cat,KELLIEP, On Encounter Diagnosis: Problem not documented 09:45 Appointment; Claire Tipton A.P.RShirleyNShirley On 01-Sep-2016 Encounter Diagnosis: Problem not documented 10:15 Appointment; Claire Tipton A.PShirleyRShirleyNShirley On 25-Aug-2016 Encounter Diagnosis: Problem not documented 13:30 Appointment; Tristan Garber M.D.|KELLIEP|MTreva,FACP|Cat,HEBERT, On 24-Aug-2016 Encounter Diagnosis: Problem not documented 11:00 Appointment; Tristan Garber M.D.|KELLIEPRowenaMTreva,FACP|Cat,KELLIEP, On 27-Jul-2016 Encounter Diagnosis: Problem not documented [...] documented 10:15 Appointment; Tristan Garber M.D.|FACP|M.DShirley,FACP|M.DShirley,FACP, On 28-Dec-2015 Encounter Diagnosis: Problem not documented 09:15 Appointment; Tristan Garber M.D.|FACP|M.D.,FACP|M.DShirley,FACP, On 13-Dec-2015 Encounter Diagnosis: Problem not documented 13:15 Appointment; Tristan Garber M.D.|FACP|M.D.,FACP|M.D.,FACP, On Encounter Diagnosis: Problem not documented 09:00 Appointment; Tristan Garber M.D.|FACP|M.D.,FACP|M.DShirley,FACP, On Encounter Diagnosis: Problem not documented 11:00"
--- OUTSIDE RECORDS SUMMARY | 2017-03-10 23:36 | External Medical Summary | Summary of Care ---
:1960 Author Name Saeed VALENTE Claire Address [address] Unavailable [place], [place] [id number] Care Team Providers Name Role Phone Jcarlos [...] for nausea Quantity: 20 Refills: 3 Jcarlos Shelton FACP, , , [...] days 2-5. Quantity: 6 Refills: 0 Jcarlos Shelton FACP, , , Tristan F Start 23-Mar-2016 Active Allergies and Adverse Reactions Name Dates Details Penicillins (Allergy) Status: Active Past Medical History Name Dates Details History of Pericardial effusion (423.9, I31.3) Status: Resolved Procedures Procedure Dates Details History of Creation Of Pericardial Window CBC w/ Auto Diff 7150 Ordered: 16-May-2016 [...] m2 Status: Results Date Description Value Details 18-Apr-2016 10:50 CBC w/ Auto Diff 7150 [...] >60 ml/min Range: >60 EST GFR, NON-AFR GREEK >60 ml/min Range: >60 Comments: EST GFR [...] >60 ml/min Range: >60 EST GFR, NON-AFR GREEK >60 ml/min Range: >60 Comments: EST GFR [...] 1.0-1.8 threshold) CALCIUM 9.0 mg/dL Range: 8.5-10.1 Plan of Care Name Dates Details Planned Observations CBC w/ Auto Diff 7150 On 22-May-2016 Intent MAGNESIUM 1260 On 22-May-2016 Intent CBC w/ Auto Diff 7150 On 29-May-2016 Intent MAGNESIUM 1260 On 29-May-2016 Intent CBC w/ Auto Diff 7150 On 05-Jun-2016 Intent MAGNESIUM 1260 On 05-Jun-2016 Intent CBC w/ Auto Diff 7150 On 12-Jun-2016 Intent Comprehensive Metabolic Panel 1212 On 12-Jun-2016 Intent MAGNESIUM 1260 On 12-Jun-2016 Intent Planned Goals not documented Planned Encounters Appointment; Provider: Poornima العلي M.D. On 19-Feb-2017 10:00 Interventions Provided Medication ChangesAzithromycin 250 MG Oral Tablet - Renew Instructions Name Dates Details Instructions not documented Encounters Appointment; Tristan Garber M.D.|WILLIAN,WILLIAN,KELLIEP, On 01-May-2016 Encounter Diagnosis: Problem not documented 13:30 Appointment; Tristan Garber M.D.|WILLIAN,KELLIEP|Cat,FACP, On 24-Apr-2016 Encounter Diagnosis: Problem not documented 13:00 Appointment; Tristan Garber M.D.|WILLIAN,HEBERT|Cat,HEBERT, On 03-Apr-2016 Encounter Diagnosis: Problem not documented 16:00 Appointment; Tristan Garber M.D.|WILLIAN,HEBERT|Cat,KELLIEP, On 20-Mar-2016 Encounter Diagnosis: Problem not documented [...]
--- OUTSIDE RECORDS SUMMARY | 2017-03-10 23:36 | External Medical Summary ---
:1960 Author Name GENERATED, SYSTEM Care Team Providers Name Role Phone MD CAROL, NADINE Primary Care Provider [phone] Reason For Visit Chief Complaint ANEMIA/LUNG CA Social History Functional Status Vital Signs Results Problems Encounter Diagnosis No relevant problems [...] Plan of Care Procedures Completed Procedure Code: [id number] Procedure Name: not valued, on 12/19/2015 10: 46 AMCompleted Procedure Code: [id number] Procedure Name: not valued, on 12/19/2015 10:38 AMCompleted Procedure Code: [id number] Procedure Name: not valued, on 2015 12:00 AMCompleted Procedure Code: [id number] Procedure Name: not valued, on 12:00 AM Immunizations No immunizations administered or ordered. Hospital Course Hospital Discharge Instructions Allergies, Adverse Reactions, Alerts Penicillins causes Severe Hives. Onset 1967.Latex Allergy has not been assessed.IV Contrast Allergy has not been assessed.No Known Food Allergies. Medication Medication reconciliation has not been performed.
--- OUTSIDE RECORDS SUMMARY | 2017-03-10 23:36 | External Medical Summary | Summary of Care ---
[...] 2-5. Quantity: 6 Refills: 0 Jcarlos Shelton, KELLIEP, , , Tristan F Start 23-Mar-2016 Active [...] >60 ml/min Range: >60 EST GFR, NON-AFR MACEDONIAN >60 ml/min Range: >60 Comments: EST GFR [...] >60 ml/min Range: >60 EST GFR, NON-AFR MACEDONIAN >60 ml/min Range: >60 Comments: EST GFR [...] 3604 FREE T4 1.01 ng/dL Range: 0.80-1.67 Plan of Care Name Dates Details Planned Observations CBC w/ Auto Diff 7150 On 10-Jul-2016 Intent CBC w/ Auto Diff 7150 On 17-Jul-2016 [...] 10:00 Appointment; Provider: Tristan Garber M.D.|WILLIAN,WILLIAN,HEBERT, On Jul-2016 11:00 Appointment; Provider: Claudio Ritchie M.D. On 13-Jul-2016 11:30 Appointment; Provider: Caridad Kuhn On 13-Jul-2016 11:00 Instructions Name Dates Details Instructions not documented Encounters Appointment; Tristan Garber M.D.|FACP|MShirleyDShirley,FACP|Cat,FACP, On 12-Jun-2016 Encounter Diagnosis: Problem not documented 15:00 Appointment; Tristan Garber M.D.|FACP|M.DShirley,FACP|MTreva,FACP, On 16-May-2016 Encounter Diagnosis: Problem not documented 11:00 Appointment; Tristan Garber M.D.|FACP|M.DShirley,FACP|Cat,FACP, On 01-May-2016 Encounter Diagnosis: Problem not documented 13:30 Appointment; Tristan Garber M.D.|FACP|MShirleyDShirley,FACP|MTreva,FACP, On 24-Apr-2016 Encounter Diagnosis: Problem not documented 13:00 Appointment; Tristan Garber M.D.|FACP|M.DShirley,FACP|MShirleyDShirley,FACP, On 03-Apr-2016 Encounter Diagnosis: Problem not documented 16:00 Appointment; Tristan Garber M.D.|FACP|M.DShirley,FACP|MShirleyDShirley,FACP, On 20-Mar-2016 Encounter Diagnosis: Problem not documented 16:00 Appointment; Tristan Garber M.D.|FACP|M.DShirlye,FACP|MShirleyDShirley,FACP, On 13-Mar-2016 Encounter Diagnosis: Problem not documented 09:30 Appointment; Sarkis Woods M.D. On 08-Mar-2016 Encounter Diagnosis: Problem not documented 09:00 Appointment; Tristan Garber M.D.|FACP|M.DShirley,FACP|MShirleyDShirley,FACP, On 22-Feb-2016 Encounter Diagnosis: Problem not documented 14:15 Appointment; Poornima العلي M.D. On 21-Feb-2016 Encounter Diagnosis: Problem not documented 10:15 Appointment; Tristan Garber M.D.|FACP|MShirleyDShirley,FACP|M.D.,FACP, On 01-Feb-2016 Encounter Diagnosis: Problem not documented 16:00 Appointment; Tristan Garber M.D.|FACP|Cat,FACP|Cat,FACP, On 11-Jan-2016 Encounter Diagnosis: Problem not documented 10:15 Appointment; Tristan Garber M.D.|FACP|Cat,FACP|Cat,FACP, On 28-Dec-2015 Encounter Diagnosis: Problem not documented 09:15 Appointment; Tristan Garber M.D.|FACP|Cat,FACP|Cat,FACP, On 13-Dec-2015 Encounter Diagnosis: Problem not documented 13:15 Appointment; Tristan Garber M.D.|FACP|Cat,FACP|Cat,FACP, On Encounter Diagnosis: Problem not documented 09:00 Appointment; Tristan Garber M.D.|FACP|MTreva,FACP|Cta,FACP, On Encounter Diagnosis: Problem not documented 11:00"
--- OUTSIDE RECORDS SUMMARY | 2017-03-10 23:36 | External Medical Summary ---
:1960 Author Name GENERATED, SYSTEM Care Team Providers Name Role Phone UNASSIGNED DOCTOR MD DON DOCTOR Primary Care Provider [phone] Reason For Visit Reason for Visit from 09/12/2015 3:50 PM:Pt Stated Reason for Adm : Swelling, redness to incision area Chief Complaint PNEUMONIA, LUNG CANCER Social History Social History from 09/20/2015 6:00 PM:Tobacco Use? : Former SmokerSocial History from 09/12/2015 3:50 PM:Tobacco Use? : Former Smoker Functional Status Functional Status from 09/20/2015 7:35 AM:LOC : AlertOriented To : Person,Place, Time,EventWeight Bearing Status : FullAssist Level : Independent# Assists : IndependentFunctional Status from 09/19/2015 8:30 PM:LOC : AlertOriented To : Person,Place,Time,EventWeight Bearing Status : FullAssist Level : Independent# Assists : IndependentFunctional Status from 09/19/2015 3:29 PM:# Assists : IndependentFunctional Status from 09/19/2015 11:45 AM:# Assists : IndependentFunctional Status from 09/19/2015 10:28 AM:LOC : AlertOriented To : Person,Place,Time,EventWeight Bearing Status : FullAssist Level : Independent# Assists : IndependentFunctional Status from 09/18/2015 8:00 PM:LOC : AlertOriented To : Person,Place,Time,EventWeight Bearing Status : FullAssist Level : Independent# Assists : IndependentFunctional Status from 09/18/2015 3:54 PM:# Assists : IndependentFunctional Status from 09/18/2015 8:50 AM:LOC : AlertOriented To : Person,Place,Time,EventWeight Bearing Status : FullAssist Level : Independent# Assists : IndependentFunctional Status from 09/17/2015 8:15 PM:LOC : AlertOriented To : Person,Place,Time,EventWeight Bearing Status : FullAssist Level : Independent# Assists : IndependentFunctional Status from 2015 12:15 PM:# Assists : IndependentFunctional Status from 09/17/2015 10:01 AM: LOC : AlertOriented To : Person,Place,Time,EventWeight Bearing Status : FullAssist Level : Independent# Assists : IndependentFunctional Status from 2015 10:51 PM:LOC : AlertOriented To : Person,Place,Time,EventWeight Bearing Status : FullAssist Level : Independent# Assists : IndependentFunctional Status from 09/16/2015 11:05 AM:LOC : AlertOriented To : Person,Place,Time,EventWeight Bearing Status : FullAssist Level : Partial# Assists : 1Functional Status from 8:32 AM:LOC : AlertOriented To : Person,Place,Time,EventWeight Bearing Status : FullAssist Level : Independent# Assists : IndependentFunctional Status from 09/15/2015 7:40 PM:LOC : AlertOriented To : Person,Place,Time,EventWeight Bearing Status : FullAssist Level : Independent# Assists : IndependentFunctional Status from 09/15/2015 7:48 AM:LOC : AlertOriented To : Person,Place,Time,EventWeight Bearing Status : FullAssist Level : Independent# Assists : IndependentFunctional Status from 09/14/2015 8:00 PM:LOC : AlertOriented To : Person,Place,Time,EventWeight Bearing Status : FullAssist Level : Independent# Assists : IndependentFunctional Status from 09/14/2015 9:47 AM:LOC : AlertOriented To : Person,Place,Time,EventWeight Bearing Status : FullAssist Level : Independent# Assists : IndependentFunctional Status from 09/12 9:53 PM:LOC : AlertOriented To : Person,Place,Time,EventWeight Bearing Status : FullAssist Level : Independent# Assists : IndependentFunctional Status from 09/13/2015 9:36 AM:LOC : AlertOriented To : Person,Place,Time,EventWeight Bearing Status : FullAssist Level : Independent# Assists : IndependentFunctional Status from 09/12/2015 10:38 PM:LOC : AlertOriented To : Person,Place,Time,EventWeight Bearing Status : FullAssist Level : Independent# Assists : 1Functional Status from 09/12/2015 3:50 PM:LOC : AlertOriented To : Person,Place,Time,EventWeight Bearing Status : FullAssist Level : Independent# Assists : Independent Vital Signs Hospital Vital Signs from 09/20/2015 8:14 PM:Height : 5/10 ft,inTemperature : 97.4 FPulse : 61Respirations : 20BP : 127/74Hospital Vital Signs from 09/20/2015 2 :58 PM:Height : 5/10 ft,inTemperature : 98.6 FPulse : 81Respirations : 20BP : 134/89Hospital Vital Signs from 09/20/2015 10:11 AM:Height : 5/10 ft, inTemperature : 98.0 FPulse : 57Respirations : 18BP : 116/69Hospital Vital Signs from 09/20/2015 6:28 AM:Height : 5/10 ft,inTemperature : 96.3 FPulse : 57Respirations : 18BP : 109/61Hospital Vital Signs from 09/19/2015 10:35 PM: Height : 5/10 ft,inTemperature : 96.0 FPulse : 67Respirations : 18BP : 107/ 62Hospital Vital Signs from 09/19/2015 6:52 PM:Height : 5/10 ft,inTemperature : 96.4 FPulse : 59Respirations : 18BP : 112/64Hospital Vital Signs from 09/19/2015 3 :09 PM:Height : 5/10 ft,inTemperature : 96.9 FPulse : 55Respirations : 16BP : 101/57Hospital Vital Signs from 09/19/2015 11:10 AM:Height : 5/10 ft, inTemperature : 97.4 FPulse : 61Respirations : 16BP : 120/57Hospital Vital Signs from 09/19/2015 7:11 AM:Height : 5/10 ft,inTemperature : 96.3 FPulse : 56Respirations : 16BP : 115/72Hospital Vital Signs from 09/18/2015 10:00 PM: Height : 5/10 ft,inTemperature : 96.9 FPulse : 65Respirations : 16BP : 122/ 75Hospital Vital Signs from 09/18/2015 7:28 PM:Height : 5/10 ft,inTemperature : 96.4 FPulse : 69Respirations : 16BP : 119/69Hospital Vital Signs from 09/18/2015 3 :49 PM:Height : 5/10 ft,inTemperature : 98.2 FPulse : 56Respirations : 18BP : 110/70Hospital Vital Signs from 09/18/2015 7:15 AM:Height : 5/10 ft,inTemperature : 96.8 FPulse : 56Respirations : 18BP : 98/58Hospital Vital Signs from 09/17/2015 10:20 PM:Height : 5/10 ft,inTemperature : 96.0 FPulse : 68Respirations : 18BP : 124/82Hospital Vital Signs from 09/17/2015 7:12 PM:Height : 5/10 ft,inTemperature : 97.7 FPulse : 68Respirations : 18BP : 113/68Hospital Vital Signs from 2015 3:46 PM:Height : 5/10 ft,inTemperature : 97.9 FPulse : 61Respirations : 20BP : 118/65Hospital Vital Signs from 09/17/2015 11:45 AM:Height : 5/10 ft, inTemperature : 96.4 FPulse : 55Respirations : 20BP : 104/65Hospital Vital Signs from 09/17/2015 6:34 AM:Height : 5/10 ft,inTemperature : 96.7 FPulse : 53Respirations : 20BP : 96/50Hospital Vital Signs from 09/16/2015 9:49 PM:Height : 5/10 ft,inTemperature : 95.7 FPulse : 57Respirations : 20BP : 106/69Hospital Vital Signs from 09/16/2015 6:25 PM:Height : 5/10 ft,inTemperature : 98.4 FPulse : 70Respirations : 20BP : 99/58Hospital Vital Signs from 09/16/2015 3:11 PM: Height : 5/10 ft,inTemperature : 96.5 FPulse : 55Respirations : 20BP : 109/ 60Hospital Vital Signs from 09/16/2015 10:59 AM:Height : 5/10 ft,inTemperature : 96.5 FPulse : 67Respirations : 20BP : 108/73Hospital Vital Signs from 09/16/2015 6 :42 AM:Height : 5/10 ft,inTemperature : 96.7 FPulse : 48Respirations : 20BP : 105/57Hospital Vital Signs from 09/15/2015 9:41 PM:Height : 5/10 ft,inTemperature : 98.4 FPulse : 53Respirations : 20BP : 129/71Hospital Vital Signs from 2015 7:33 PM:Height : 5/10 ft,inTemperature : 97.3 FPulse : 59Respirations : 18BP : 164/65Hospital Vital Signs from 09/15/2015 2:32 PM:Height : 5/10 ft, inTemperature : 97.6 FPulse : 70Respirations : 18BP : 133/81Hospital Vital Signs from 09/15/2015 10:47 AM:Height : 5/10 ft,inTemperature : 96.6 FPulse : 58Respirations : 18BP : 110/72Hospital Vital Signs from 09/15/2015 6:16 AM:Height : 5/10 ft,inTemperature : 95.6 FPulse : 54Respirations : 18BP : 104/65Hospital Vital Signs from 09/14/2015 10:18 PM:Height : 5/10 ft,inTemperature : 97.1 FPulse : 56Respirations : 18BP : 137/77Hospital Vital Signs from 09/14/2015 7:12 PM:Height : 5/10 ft,inTemperature : 97.3 FPulse : 64Respirations : 18BP : 117/ 70Hospital Vital Signs from 09/14/2015 3:12 PM:Height : 5/10 ft,inTemperature : 95.6 FPulse : 69Respirations : 18BP : 109/67Hospital Vital Signs from 09/14/2015 10:52 AM:Height : 5/10 ft,inTemperature : 96.8 FPulse : 64Respirations : 18BP : 108/72Hospital Vital Signs from 09/14/2015 10:06 AM:Weight : 87.5/ kgHeight : 5/ 10 ft,inHospital Vital Signs from 09/14/2015 8:04 AM:Height : 5/10 ft, inTemperature : 98.0 FPulse : 73Respirations : 20BP : 118/76Hospital Vital Signs from 09/13/2015 9:44 PM:Height : 5/10 ft,inTemperature : 98.6 FPulse : 70Respirations : 18BP : 114/74Hospital Vital Signs from 09/13/2015 7:14 PM: Height : 5/10 ft,inTemperature : 98.3 FPulse : 70Respirations : 20BP : 117/ 68Hospital Vital Signs from 09/13/2015 3:25 PM:Height : 5/10 ft,inTemperature : 97.1 FPulse : 71Respirations : 22BP : 128/69Hospital Vital Signs from 09/13/2015 11:08 AM:Height : 5/10 ft,inTemperature : 97.3 FPulse : 69Respirations : 24BP : 114/70Hospital Vital Signs from 09/13/2015 7:24 AM:Height : 5/10 ft, inTemperature : 97.1 FPulse : 65Respirations : 20BP : 116/63Hospital Vital Signs from 09/12/2015 11:00 PM:Height : 5/10 ft,inTemperature : 99.0 FPulse : 83Respirations : 20BP : 137/74Hospital Vital Signs from 09/12/2015 6:55 PM: Height : 5/10 ft,inTemperature : 98.9 FPulse : 87Respirations : 18BP : 122/ 70Hospital Vital Signs from 09/12/2015 4:46 PM:Weight : 87.5/ kgHeight : 5/10 ft, inTemperature : 97.9 FPulse : 80Respirations : 18BP : 122/66Hospital Vital Signs from 09/12/2015 3:50 PM:Weight : 87.5/ kgHeight : 5/10 ft,in Results Blood Gas from 09/19/2015 4:06 AM*ARTERIAL PH7.433 (7.350-7.450 ) *ARTERIAL RM4565.1 MM HG (35.0-45.0 MM HG) *ART. PO268 MM HG L (80-95 MM HG) *ART. TOTAL CO220.9 mmol/L (20.0-30.0 mmol/L) *ART. KTULEHENSYV09.7 MEQ/L (19.0-29.0 MEQ/L) *ART. BASE EXCESS0.3 (-2.5-2.5 ) ART. O2 TEDQHCCUCC10.3 % (91.0-97.0 %) *PATIENT ATMOSPHEREROOM AIR *SPECIMEN SITEARTERIALChemistry from 09/20/2015 6:42 LMNOCUEQ490 MMOL/L (136-145 MMOL/L) POTASSIUM3.5 MMOL/L (3.5-5.1 MMOL/L) WBCMXDUQ751 MMOL/L H (98-107 MMOL/L) XPW433.7 MMOL/L (21.0-32.0 MMOL/L) *ANION GAP9.3 MMOL/L (8.0-16.0 MMOL/L) BUN9 MG/DL (7-18 MG/DL) CREATININE1.05 MG/DL (0.70-1.30 MG/DL) *BUN/CREATININE RATIO8.6 L (9.1-17.0 ) DLFSYDU379 MG/DL H (65-99 MG/DL) *GFR EST NON AFR AIIKZVLH45 ML/MIN *GFRA EST AFR AMER>90 ML/MIN CALCIUM8.8 MG/DL (8.5-10.1 MG/DL)Chemistry from 09/19/2015 4:48 PMVANCOMYCIN RLBSDI69.7 MCG/ML H (5.0-10.0 MCG/ML)Chemistry from 09/19/2015 4:56 LYJWOVCG801 MMOL/L (136-145 MMOL/L) POTASSIUM3.6 MMOL/L (3.5-5.1 MMOL/L) YDGVCIQC668 MMOL/L H (98-107 MMOL/L) PNJ732.6 MMOL/L (21.0-32.0 MMOL/L) *ANION GAP10.4 MMOL/L (8.0-16.0 MMOL/L) BUN12 MG/DL (7-18 MG/DL) CREATININE1.08 MG/DL (0.70-1.30 MG/DL) *BUN/CREATININE RATIO11.1 (9.1-17.0 ) KFCKHDP317 MG/DL H (65-99 MG/DL) *GFR EST NON AFR ZOCPXPJL55 ML/MIN *GFRA EST AFR AMER89 ML/MIN CALCIUM8.6 MG/DL (8.5-10.1 MG/DL) BILIRUBIN TOTAL0.20 MG/DL (0.20-1.00 MG/DL) TOTAL PROTEIN6.8 GM/DL (6.4-8.2 GM/DL) ALBUMIN2.9 GM/DL L (3.4-5.0 GM/DL) *GLOBULIN3.9 GM/DL H (2.3-3.5 GM/DL) *A/G RATIO0.7 MG/DL L (1.5-2.2 MG/DL) ALK PHOS56 U/L (46-116 U/L) ALT (SGPT)41 U/L (14-59 U/L) AST (SGOT)31 U/L (15-37 U/L)Chemistry from 09/18/2015 8:01 CKLFOALY896 MMOL/L (136 -145 MMOL/L) POTASSIUM3.9 MMOL/L (3.5-5.1 MMOL/L) EIACPOKO619 MMOL/L (98-107 MMOL/L) MER325.9 MMOL/L (21.0-32.0 MMOL/L) *ANION GAP6.1 MMOL/L L (8.0-16.0 MMOL/L) BUN11 MG/DL (7-18 MG/DL) CREATININE1.22 MG/DL (0.70-1.30 MG/DL) *BUN/CREATININE RATIO9.0 L (9.1-17.0 ) UHVBEJG84 MG/DL (65-99 MG/DL) *GFR EST NON AFR IVJGAPRW02 ML/MIN *GFRA EST AFR AMER77 ML/MIN CALCIUM8.7 MG/DL (8.5-10.1 MG/DL)Chemistry from 09/17/2015 4:56 PMVANCOMYCIN XZSBJE12.7 MCG/ML H (5.0-10.0 MCG/ML)Chemistry from 09/16/2015 6:25 RBTZTODN865 MMOL/L (136-145 MMOL/L) POTASSIUM3.8 MMOL/L (3.5-5.1 MMOL/L) DOYSRKSL424 MMOL/L (98-107 MMOL/L) MWN324.8 MMOL/L (21.0-32.0 MMOL/L) *ANION GAP8.2 MMOL/L (8.0-16.0 MMOL/L) BUN13 MG/DL (7-18 MG/DL) CREATININE1.06 MG/DL (0.70-1.30 MG/DL) *BUN/CREATININE RATIO12.3 (9.1-17.0 ) HSKZNPL31 MG/DL (65-99 MG/DL) *GFR EST NON AFR QGDAOJWQ62 ML/MIN *GFRA EST AFR AMER>90 ML/MIN CALCIUM8.8 MG/DL (8.5-10.1 MG/DL)Chemistry from 09/14/2015 4:48 AMVANCOMYCIN GWBFHA07.8 MCG/ML H (5.0-10.0 MCG/ML)Chemistry from 09/13/2015 4:30 TGVZIPBU237 MMOL/L (136-145 MMOL/L) POTASSIUM4.1 MMOL/L (3.5-5.1 MMOL/L) DAEAINEJ145 MMOL/L (98-107 MMOL/L) KFS111.6 MMOL/L (21.0-32.0 MMOL/L) *ANION GAP5.4 MMOL/L L (8.0-16.0 MMOL/L) BUN14 MG/DL (7-18 MG/DL) CREATININE1.09 MG/DL (0.70-1.30 MG/DL) *BUN/CREATININE RATIO12.8 (9.1-17.0 ) SGNVKYH911 MG/DL H (65-99 MG/DL) *GFR EST NON AFR MDPFXKWA97 ML/MIN *GFRA EST AFR AMER88 ML/MIN CALCIUM8.8 MG/DL (8.5-10.1 MG/DL)Hematology from 09/20/2015 6:42 AMWBC7.3 X10e3/ UL (3.6-11.2 X10e3/UL) RBC4.70 X10e6/UL (4.06-5.63 X10e6/UL) KQKXHCVZVL39.8 G/DL (12.5-16.3 G/DL) KMIJAEEDPV52.0 % (36.7-47.1 %) *MCV87.3 FL (80.0-100.0 FL) *MCH29.4 PG (27.0-33.0 PG) *MCHC33.6 G/DL (32.0-36.0 G/DL) *RDW15.9 % (12.3-17.0 %) *RDWSD48.6 H (37.1-47.8 ) AQAYWEIZ357 X10e3/UL (159-386 X10e3/UL) *MPV7.6 FL (7.4-10.4 FL) AUTOMATED DIFFPERFORMED SEGS69.1 % *GVJUHRCLXOU70.1 % *MONOCYTES6.7 % *EOSINOPHILS5.3 % *BASOPHILS0.8 % *ABSOLUTE NEUTROPHILS5.10 X10e3/UL (1.80-7.80 X10e3/UL) *ABSOLUTE LYMPHOCYTES1.30 X10e3/UL (1.00-3.00 X10e3/UL) *ABSOLUTE MONOCYTES0.50 X10e3/UL (0.30-1.00 X10e3/UL) *ABSOLUTE EOSINOPHILS0.40 X10e3/UL (0.00-0.50 X10e3/UL) *ABSOLUTE BASOPHILS0.10 X10e3/UL (0.00-0.20 X10e3/UL)Hematology from 09/19/2015 4: 56 AMWBC8.2 X10e3/UL (3.6-11.2 X10e3/UL) RBC4.70 X10e6/UL (4.06-5.63 X10e6/UL) UBSGGWNGIF84.7 G/DL (12.5-16.3 G/DL) HAIQWEJQXG21.0 % (36.7-47.1 %) *MCV87.2 FL (80.0-100.0 FL) *MCH29.2 PG (27.0-33.0 PG) *MCHC33.5 G/DL (32.0-36.0 G/DL) *RDW16.3 % (12.3-17.0 %) *RDWSD50.3 H (37.1-47.8 ) SRIWQOCM158 X10e3/UL (159-386 X10e3/UL) *MPV7.8 FL (7.4-10.4 FL) AUTOMATED DIFFPERFORMED SEGS73.8 % *TQKOKEKPGCI52.9 % *MONOCYTES7.1 % *EOSINOPHILS4.3 % *BASOPHILS0.9 % *ABSOLUTE NEUTROPHILS6.00 X10e3/UL (1.80-7.80 X10e3/UL) *ABSOLUTE LYMPHOCYTES1.10 X10e3/UL (1.00-3.00 X10e3/UL) *ABSOLUTE MONOCYTES0.60 X10e3/UL (0.30-1.00 X10e3/UL) *ABSOLUTE EOSINOPHILS0.40 X10e3/UL (0.00-0.50 X10e3/UL) *ABSOLUTE BASOPHILS0.10 X10e3/UL (0.00-0.20 X10e3/UL)Hematology from 09/18/2015 8: 01 AMWBC7.3 X10e3/UL (3.6-11.2 X10e3/UL) RBC4.84 X10e6/UL (4.06-5.63 X10e6/UL) RPQMWPFSSI53.9 G/DL (12.5-16.3 G/DL) WCBSRXMNKT14.5 % (36.7-47.1 %) *MCV87.8 FL (80.0-100.0 FL) *MCH28.7 PG (27.0-33.0 PG) *MCHC32.7 G/DL (32.0-36.0 G/DL) *RDW16.7 % (12.3-17.0 %) *RDWSD51.2 H (37.1-47.8 ) XFMCTWDM461 X10e3/UL (159-386 X10e3/UL) *MPV8.2 FL (7.4-10.4 FL) AUTOMATED DIFFPERFORMED SEGS70.7 % *QTUNWKXDFNZ87.4 % *MONOCYTES6.4 % *EOSINOPHILS4.4 % *BASOPHILS1.1 % *ABSOLUTE NEUTROPHILS5.20 X10e3/UL (1.80-7.80 X10e3/UL) *ABSOLUTE LYMPHOCYTES1.30 X10e3/UL (1.00-3.00 X10e3/UL) *ABSOLUTE MONOCYTES0.50 X10e3/UL (0.30-1.00 X10e3/UL) *ABSOLUTE EOSINOPHILS0.30 X10e3/UL (0.00-0.50 X10e3/UL) *ABSOLUTE BASOPHILS0.10 X10e3/UL (0.00-0.20 X10e3/UL)Hematology from 09/16/2015 6: 25 AMWBC7.3 X10e3/UL (3.6-11.2 X10e3/UL) RBC4.73 X10e6/UL (4.06-5.63 X10e6/UL) GIZWAJBOMS08.7 G/DL (12.5-16.3 G/DL) MIDWGEEVLI47.4 % (36.7-47.1 %) *MCV87.5 FL (80.0-100.0 FL) *MCH29.0 PG (27.0-33.0 PG) *MCHC33.1 G/DL (32.0-36.0 G/DL) *RDW16.3 % (12.3-17.0 %) *RDWSD49.9 H (37.1-47.8 ) JJPAHYVW510 X10e3/UL (159-386 X10e3/UL) *MPV7.6 FL (7.4-10.4 FL) AUTOMATED DIFFPERFORMED SEGS69.4 % *KSXTJOPBNWI28.1 % *MONOCYTES7.5 % *EOSINOPHILS4.7 % *BASOPHILS1.3 % *ABSOLUTE NEUTROPHILS5.10 X10e3/UL (1.80-7.80 X10e3/UL) *ABSOLUTE LYMPHOCYTES1.30 X10e3/UL (1.00-3.00 X10e3/UL) *ABSOLUTE MONOCYTES0.50 X10e3/UL (0.30-1.00 X10e3/UL) *ABSOLUTE EOSINOPHILS0.30 X10e3/UL (0.00-0.50 X10e3/UL) *ABSOLUTE BASOPHILS0.10 X10e3/UL (0.00-0.20 X10e3/UL)Hematology from 09/13/2015 4 :30 AMWBC7.7 X10e3/UL (3.6-11.2 X10e3/UL) RBC4.70 X10e6/UL (4.06-5.63 X10e6/UL) OFXJNAPWAZ22.6 G/DL (12.5-16.3 G/DL) BNLLEXFWJA51.3 % (36.7-47.1 %) *MCV87.8 FL (80.0-100.0 FL) *MCH28.9 PG (27.0-33.0 PG) *MCHC32.9 G/DL (32.0-36.0 G/DL) *RDW16.9 % (12.3-17.0 %) *RDWSD52.1 H (37.1-47.8 ) TXHKIYFQ563 X10e3/UL (159-386 X10e3/UL) *MPV7.7 FL (7.4-10.4 FL) AUTOMATED DIFFPERFORMED SEGS67.7 % *RQGCTNRSUNS77.1 % *MONOCYTES8.2 % *EOSINOPHILS5.0 % *BASOPHILS1.0 % *ABSOLUTE NEUTROPHILS5.20 X10e3/UL (1.80-7.80 X10e3/UL) *ABSOLUTE LYMPHOCYTES1.40 X10e3/UL (1.00-3.00 X10e3/UL) *ABSOLUTE MONOCYTES0.60 X10e3/UL (0.30-1.00 X10e3/UL) *ABSOLUTE EOSINOPHILS0.40 X10e3/UL (0.00-0.50 X10e3/UL) *ABSOLUTE BASOPHILS0.10 X10e3/UL (0.00-0.20 X10e3/UL)Urinalysis from 09/18/2015 11 :40 AM Status: Final Result URINALYSIS Specimen Number: [id number] Sample Collection Date/Time: 09/18/2015 11:40 AM Specimen Source: *URINE COLORYELLOW (STRAW/YELL/DK YELL ) *URINE APPEARANCECLEAR (CLEAR ) URINE PH6.5 (5.0-8.0 ) URINE SPECIFIC GRAVITY1.020 (<=1.005->=1.030 ) *URINE GLUCOSENEGATIVE MG/DL (NEGATIVE MG/DL) *URINE BILIRUBINNEGATIVE (NEGATIVE ) *URINE KETONESNEGATIVE MG/DL (NEGATIVE MG/DL) *URINE BLOODSMALL A (NEGATIVE ) *URINE PROTEINNEGATIVE MG/DL (NEGATIVE MG/DL) *URINE UROBILINOGEN0.2 EU/DL (0.2-1.0 EU/DL) *URINE NITRITESNEGATIVE (NEGATIVE ) *URINE LEUKOCYTESNEGATIVE (NEGATIVE ) *MICROSCOPIC EXAM PERFORMEDPERFORMED *RBC URINE1-5 /HPF A (0-1 /HPF) *MUCOUS THREADSFEW /LPF A (NEGATIVE /LPF)Coagulation from 09/20/2015 6:42 AM* PROTHROMBIN TIME16.5 SECONDS H (9.4-11.5 SECONDS) *INR1.5 H (0.9-1.1 )Coagulation from 09/19/2015 4:56 AM*PROTHROMBIN TIME15.4 SECONDS H (9.4-11.5 SECONDS) *INR1.4 H (0.9-1.1 ) PARTIAL THROMBOPLASTIN TIME37.8 SECONDS H (23.0-31.0 SECONDS)Coagulation from 09/18/2015 8:01 AM*PROTHROMBIN TIME13.9 SECONDS H (9.4-11.5 SECONDS) *INR1.3 H (0.9-1.1 )Coagulation from 09/17/2015 6:23 AM*PROTHROMBIN TIME14.1 SECONDS H (9.4-11.5 SECONDS) *INR1.3 H (0.9-1.1 )Coagulation from 09/16/2015 6:25 AM*PROTHROMBIN TIME13.1 SECONDS H (9.4-11.5 SECONDS) *INR1.2 H (0.9-1.1 )Coagulation from 09/15/2015 5:36 AM*PROTHROMBIN TIME12.0 SECONDS H (9.4-11.5 SECONDS) *INR1.1 (0.9-1.1 )Coagulation from 09/14/2015 4:48 AM*PROTHROMBIN TIME10.5 SECONDS (9.4-11.5 SECONDS) *INR1.0 (0.9-1.1 )Blood Bank from 09/19/2015 4:56 AMANTIBODY SCREEN (Indirect Kelsey)NEG *ABO GroupA RH TYPENEGDX Radiology from 09/19/2015 7:13 AMCHEST 2 VIEWSHistory: Preoperative. Technique: 2 VIEW CHEST Priors: 09/12/15 Findings: The cardiac silhouette and pulmonary vasculature within normal limits. A left hilar mass is again noted, similar to the prior study. The lungs are otherwise clear. Impression: Stable left suprahilar mass. Electronically signed by: Hamilton Pereyra MD Dictated: 09/19/2015 08:11 Problems Encounter Diagnosis Acute Pain Status:Active.Cellulitis of Trunk Status:Active.Infection Risk Status :Active.Non-Small Cell Lung Cancer Status:Active.Additional Problems Deep Venous Thrombosis Comment:Problem resolved by [facility] upon Discharge, Status:Resolved.Fall Risk Comment:Problem resolved by [facility] upon Discharge, Status:Resolved.Mobility Impairment Comment:Problem resolved by [facility] upon Discharge, Status:Resolved.Tobacco Use Comment :Problem resolved by [facility] upon Discharge, Status:Resolved. Encounters Encounter Diagnosis Acute Pain Status:Active.Cellulitis of Trunk Status:Active.Infection Risk Status :Active.Non-Small Cell Lung Cancer Status:Active. Plan of Care Follow-up Appointments from 09/20/2015 6:00 PM:#1 Office appointment: : Bobby#1 Date/Time : 09/22/2015 1:30 PM#2 Office appointment: : Jcarlos#2 Date/Time : 09/23 11:00 AMTreatment Plan from 09/20/2015 3:41 PM:Care Management Note : Patient lives at home alone and plans to return today. Patient has no insurance coverage for medications. He states he is working with director of social work at [place] who is helping him file for disability, medicaid assistance. He has no income and says his sister is currently helping cover his bills. Patient given information on [facility] and [employer] [facility] for medication assistance as well as other support. Patient is on food stamps. [employer] contactedto see if they would assist with coverage of [employer]ice[employer]. They stated patient will need to come in tomorrow and fill out paperwork and will make decision from there. Patient given this information and also to follow up with [facility] if [facility] will not cover entire cost. My contact info given to patient if he has any problems with obtaining meds. Patient also plans to come to outpatient infusion for iv vanco. Referral made and appointment times set for 0800 and 2000 starting tomorrow. Patient has gone there before and aware of process. No other needs voiced from patient at this time.Treatment Plan from 09/16/2015 10:30 AM:Care Management Note : Reviewed POC w / Dr. Jarrett, Lina Greer, LYNSEY et interdisciplinary team during care rounds. Patient w/ NSCLC et cellulitis of trunk s/p mediastinoscopy. Anticipated 1 more day of IV antibiotics w/ goal dc date of 09/16. Patient to f/u w/ oncology for NSCLC.Treatment Plan from 09/14/2015 10:25 AM:Care Management Note : Met with patient. Patient is a new lung cancer diagnosis and has not even met with an oncologist to go over treatment options. Patient does live by himself and states he will be able to return home at discharge. He does have friends and family who help him as needed. He is working with someone for his disability and medicaid already. Because patient does not yet know what his next step will be - treatment or no treatment - provided him with a brochure for palliative care. Patient unsure if will accept at this time.Treatment Plan from 09/13/2015 10:45 AM:Care Management Note : Patient admitted under inpatient status to the acute medical floor after presenting to the ED w/ c/o fevers up to 103 et "knot" in chest wall. Patient had mediastinoscopy w/ biopsy approx 1 wk. WBC 14.8 BC x [address] chest revealed + PE. POC includes Zosyn IV q 6, Vanco IV q 12, Lovenox et oncology consult. Patient meets medical necessity for an inpatient admission w/ an anticipated LOS > 2 midnights. Procedures No relevant procedures performed. Immunizations No immunizations administered or ordered. Hospital Course Hospital Discharge Instructions How to care for yourself at home from 09/20/2015 6:00 PM:Discharge Activity : Activity as tolerated,May ShowerDischarge Diet : Diet as toleratedDischarge Diet : : RegularCall your doctor if: : Fever over 101 F or severe chills,Chest pain or other unexplained symptoms,Tingling or numbness develops,A sudden increase or decrease in weight,You have persistent or worsening symptoms,If you have Heart Failure and you gain 3 pounds within 1 week or your symptoms worsen. ( Weigh at home tomorrow morning)Specific Discharge Teaching Instructions provided : : YesDischarge on Warfarin : No Allergies, Adverse Reactions, Alerts Penicillins causes Severe Hives. Onset 1967.No Latex Allergy.No IV Contrast Allergy. Medication It is the responsibility of the patient or patient asset protection representative to confirm the list of medicationswith either the patient's personal care provider or the patient's follow-up care provider to ensure the patient has an appropriate list of medications to take at home. Discharge medicationsNew medicationsVANCOMYCIN (VANCOCIN) 1500MG Intravein BID cefdinir 300 mg Capsule, Ordered By: ERIC JARRETT MD Directions: 1 capsule oral twice a day Additional Instructions: for 14 days Continued medicationsenoxaparin 120 mg/0.8 mL Syringe, Ordered By: ERIC JARRETT MD Directions: 120 mg subcutaneous daily Additional Instructions: To be given in outpatient infusion warfarin (Coumadin) 5 mg Tablet, Ordered By: ERIC JARRETT MD Directions: 1 tablet oral daily Additional Instructions: hold for INR > 3.0 Stopped medicationsibuprofen 600 mg Tablet Directions: 1 tablet oral every six hours PRN PAIN oxyCODONE-acetaminophen 10 mg-300 mg Tablet Directions: 0.5 tablet oral every four hours PRN PAIN Additional Instructions: .
--- OUTSIDE RECORDS SUMMARY | 2017-03-10 23:36 | External Medical Summary | Summary of Care ---
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 Refills: 0 Start 17-Feb-2016 Active PredniSONE 5 MG Oral Tablet TAKE 1 TABLET DAILY. Quantity: 30 Refills: 2 KELLIE Garber M.D.P, , , Tristan F Start 06-Sep-2016 Active Allergies and Adverse Reactions Name Dates Details Penicillins (Allergy) Status: Active Past Medical History Name Dates Details History of Pericardial effusion (423.9, I31.3) Status: Resolved Procedures Procedure Dates Details History of Creation Of Pericardial Window FREE T4 3604 Ordered: 24-Aug-2016 THYROID STIM. HORMONE 3602 Ordered: 24-Aug-2016 CT NECK/CHEST/ABD/PEL WITH ORAL AND IV CONTRAST Ordered: Immunization Name Dates Details Immunizations not documented Family History Sister Name Dates Details Family history of malignant neoplasm of breast (V16.3, Z80.3) Status: Active Social History Name Dates Details - Status: Smoking Status Name Dates Details Current every day smoker Vital Signs Date Test Result Details 09:36 BP Systolic 102 mm[Hg] Status: Comments: Location: ; Position: BP Diastolic 68 mm[Hg] Status: Comments: Location: ; Position: Temperature 98.1 f Status: Comments: Method: Heart Rate 68 /min Status: Comments: Location: ; Results Date Description Value Details 30-Aug-2016 13:49 CBC w/ Auto Diff 7150 WBC 12.1 K/uL (Above high threshold) Range: 4.5-11.0 RBC 5.27 mil/uL Range: 4.20-5.40 HGB 15.8 g/dL Range: 14.0-18.0 HCT 47.2 % Range: 42.0-53.0 MCV 89.6 fL Range: 80.0-99.0 MCH 29.9 pg Range: 27.3-32.5 MCHC 33.4 % Range: 32.0-36.0 RDW 16.9 % (Above high threshold) Range: 11.6-14.8 PLATELETS 276 K/uL Range: 150-400 MPV 7.3 fL Range: 6.0-11.0 %NEUTRO 75.4 % Range: 37.0-80.0 %LYMPHS 15.4 % Range: 13.0-50.0 %MONO 5.4 % Range: 0.0-12.0 %EOS 2.1 % Range: 0.0-7.0 %BASO 0.4 % Range: 0.0-2.5 %GIOVANNI 1.3 % Range: 0.0-5.0 NEUTRO 9.1 K/uL (Above high threshold) Range: 2.0-6.9 LYMPHS 1.9 K/uL Range: 0.6-3.4 MONOS 0.7 K/uL Range: 0.0-0.9 EOS 0.3 K/uL Range: 0.0-0.7 BASO 0.1 K/uL Range: 0.0-0.2 06-Sep-2016 09:22 CBC w/ Auto Diff 7150 Comments: Manual differential indicated. WBC 14.1 K/uL (Above high threshold) Range: 4.5-11.0 RBC 5.01 mil/uL Range: 4.20-5.40 HGB 15.1 g/dL Range: 14.0-18.0 HCT 45.5 % Range: 42.0-53.0 MCV 90.8 fL Range: 80.0-99.0 MCH 30.2 pg Range: 27.3-32.5 MCHC 33.2 % Range: 32.0-36.0 RDW 16.5 % (Above high threshold) Range: 11.6-14.8 PLATELETS 335 K/uL Range: 150-400 MPV 7.5 fL Range: 6.0-11.0 09:36 Manual Differential 7400 SEGS 84 % (Above high threshold) Range: 37-80 BANDS 0 % Range: 0-7 LYMPH 15 % Range: 13-50 MONO 1 % Range: 0-12 EOSIN 0 % Range: 0-7 BASO 0 % Range: 0-3 CODY LYMPH 0 % Range: 0-0 META 0 % Range: 0-0 MYELO 0 % Range: 0-0 PRO 0 % Range: 0-0 BLAST 0 % Range: 0-0 NUC RBC 0 /100 WBC Range: 0-0 SMUDGE 0 /100 WBC PLATELET Adequate Range: Adequate 13-Sep-2016 13:57 CBC w/ Auto Diff 7150 WBC 9.0 K/uL Range: 4.5-11.0 RBC 5.13 mil/uL Range: 4.20-5.40 HGB 15.2 g/dL Range: 14.0-18.0 HCT 46.2 % Range: 42.0-53.0 MCV 90.1 fL Range: 80.0-99.0 MCH 29.6 pg Range: 27.3-32.5 MCHC 32.9 % Range: 32.0-36.0 RDW 16.7 % (Above high threshold) Range: 11.6-14.8 PLATELETS 302 K/uL Range: 150-400 MPV 7.1 fL Range: 6.0-11.0 %NEUTRO 75.1 % Range: 37.0-80.0 %LYMPHS 16.7 % Range: 13.0-50.0 %MONO 5.4 % Range: 0.0-12.0 %EOS 0.6 % Range: 0.0-7.0 %BASO 0.6 % Range: 0.0-2.5 %GIOVANNI 1.6 % Range: 0.0-5.0 NEUTRO 6.7 K/uL Range: 2.0-6.9 LYMPHS 1.5 K/uL Range: 0.6-3.4 MONOS 0.5 K/uL Range: 0.0-0.9 EOS 0.1 K/uL Range: 0.0-0.7 BASO 0.1 K/uL Range: 0.0-0.2 13:13 CBC w/ Auto Diff 7150 Comments: Manual differential indicated. WBC 10.6 K/uL Range: 4.5-11.0 RBC 5.27 mil/uL Range: 4.20-5.40 HGB 15.5 g/dL Range: 14.0-18.0 HCT 46.9 % Range: 42.0-53.0 MCV 89.0 fL Range: 80.0-99.0 MCH 29.5 pg Range: 27.3-32.5 MCHC 33.1 % Range: 32.0-36.0 RDW 16.4 % (Above high threshold) Range: 11.6-14.8 PLATELETS 303 K/uL Range: 150-400 MPV 7.2 fL Range: 6.0-11.0 13:30 Manual Differential 7400 SEGS 72 % Range: 37-80 BANDS 0 % Range: 0-7 LYMPH 18 % Range: 13-50 MONO 8 % Range: 0-12 EOSIN 1 % Range: 0-7 BASO 1 % Range: 0-3 CODY LYMPH 0 % Range: 0-0 META 0 % Range: 0-0 MYELO 0 % Range: 0-0 PRO 0 % Range: 0-0 BLAST 0 % Range: 0-0 NUC RBC 0 /100 WBC Range: 0-0 SMUDGE 0 /100 WBC PLATELET Adequate Range: Adequate 08:34 CBC w/ Auto Diff 7150 WBC [...] >60 ml/min Range: >60 EST GFR, NON-AFR CITIZEN OF [place] >60 ml/min Range: >60 Comments: EST GFR [...] 1.0-1.8 threshold) CALCIUM 8.8 mg/dL Range: 8.5-10.1 Plan of Care Name Dates Details Planned Observations Planned Goals not documented Planned Encounters Appointment; Provider: Poornima العلي M.D. On 19-Feb-2017 10:00 Instructions Name Dates Details Instructions not documented Encounters Appointment; Claire Tipton A.P.R.N. On 01-Sep-2016 Encounter Diagnosis: Problem not documented 10:15 Appointment; Claire Tipton A.P.R.N. On 25-Aug-2016 Encounter Diagnosis: Problem not documented 13:30 Appointment; Tristan Garber M.D.|FACP|M.DShirley,FACP|MShirleyDShirley,FACP, On 24-Aug-2016 Encounter Diagnosis: Problem not documented 11:00 Appointment; Tristan Garber M.D.|FACP|M.D.,FACP|M.DShirley,FACP, On 27-Jul-2016 Encounter Diagnosis: Problem not documented 11:00 Appointment; Tristan Garber M.D.|FACP|M.DShirley,FACP|M.DShirley,FACP, On 18-Jul-2016 Encounter Diagnosis: Problem not documented 13:15 Appointment; Claudio Ritchie M.D. On 13-Jul-2016 Encounter Diagnosis: Problem not documented 11:30 Appointment; Caridad Kuhn On 13-Jul-2016 Encounter Diagnosis: Problem not documented 11:00 Appointment; Poornima العلي M.D. On 12-Jul-2016 Encounter Diagnosis: Problem not documented 11:30 Appointment; Tristan Garber M.D.|FACP|M.DShirley,FACP|M.DShirley,FACP, On 06-Jul-2016 Encounter Diagnosis: Problem not documented 15:15 Appointment; Tristan Garber M.D.|FACP|M.DShirley,FACP|M.DShirley,FACP, On 12-Jun-2016 Encounter [...] documented 16:00 Appointment; Tristan Garber M.D.|FACP|M.D.,FACP|M.DShirley,FACP, On 20-Mar-2016 Encounter Diagnosis: Problem not documented 16:00 Appointment; Tristan Garber M.D.|FACP|M.D.,FACP|M.D.,FACP, On 13-Mar-2016 Encounter Diagnosis: Problem not documented 09:30 Appointment; aSrkis Woods M.D. On 08-Mar-2016 Encounter Diagnosis: Problem not documented 09:00 Appointment; Tristan Garber M.D.|FACP|M.D.,FACP|M.D.,FACP, On 22-Feb-2016 Encounter Diagnosis: Problem not documented 14:15 Appointment; Poornima العلي M.D. On 21-Feb-2016 Encounter Diagnosis: Problem not documented 10:15 Appointment; Tristan Garber M.D.|FACP|M.D.,FACP|M.D.,FACP, On 01-Feb-2016 Encounter Diagnosis: Problem not documented 16:00 Appointment; Tristan Garber M.D.|FACP|M.D.,FACP|M.D.,FACP, On 11-Jan-2016 Encounter Diagnosis: Problem not documented 10:15 Appointment; Tristan Garber M.D.|FACP|M.D.,FACP|M.D.,FACP, On 28-Dec-2015 Encounter Diagnosis: Problem not documented 09:15 Appointment; Tristan Garber M.D.|WILLIAN,HEBERT|Cat,HEBERT, On 13-Dec-2015 Encounter Diagnosis: Problem not documented 13:15 Appointment; Tristan Garber M.D.|HEBERT|Cat,HEBERT|Cat,HEBERT, On Encounter Diagnosis: Problem not documented 09:00 Appointment; Tristan Garber M.D.|WILLIAN,HEBERT|Cat,HEBERT, On Encounter Diagnosis: Problem not documented 11:00"
--- OUTSIDE RECORDS SUMMARY | 2017-03-10 23:37 | External Medical Summary | Summary of Care ---
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.3, C34.12) Status: Active Mass of stomach (537.9, K31.9) Status: Active Medications Name Dates Details Metoprolol [...] Window CBC w/ Auto Diff 7150 Ordered: CBC w/ Auto Diff 7150 Ordered: Comprehensive Metabolic Panel 1212 Ordered: CBC w/ Auto Diff 7150 Ordered: Immunization Name Dates Details Immunizations not documented Family History Sister Name Dates Details Family history of malignant neoplasm of breast (V16.3, Z80.3) Status: Active Social History Name Dates Details - Status: Smoking Status Name Dates Details Current every day smoker Vital Signs Date Test Result Details 11:39 BP Systolic 124 mm[Hg] Status: Comments: [...] Status: 09:36 BP Systolic 102 mm[Hg] Status: Comments: Location: ; Position: BP Diastolic 68 mm[Hg] Status: Comments: Location: ; Position: Temperature 98.1 f Status: Comments: Method: Heart Rate 68 /min Status: Comments: Location: ; Results Date Description Value Details 13:13 CBC w/ Auto Diff 7150 Comments: [...] >60 ml/min Range: >60 EST GFR, NON-AFR [place] >60 ml/min Range: >60 Comments: EST GFR [...] >60 ml/min Range: >60 EST GFR, NON-AFR [place] >60 ml/min Range: >60 Comments: EST GFR [...] Range: 6.0-11.0 %EOS 0.7 % Range: 0.0-7.0 Plan of Care Name Dates Details Planned Observations CBC w/ Auto Diff 7150 On Intent CBC w/ Auto Diff 7150 On Intent Comprehensive Metabolic Panel 1212 On Intent Planned Goals not documented Planned Encounters Appointment; Provider: Poornima العلي M.D. On 19-Feb-2017 10:00 Appointment; Provider: Tristan Garber M.D.|WILLIAN DORSEY FACP, On October-2016 11:30 Interventions Provided Labs/Procedures/ImagingCBC w/ Auto Diff 7150; Done: Oct 16 2016 10:05AM Instructions Name Dates Details Instructions not documented Encounters Appointment; Tristan Garber M.D.|WILLIAN,HEBERT DORSEY, On Encounter Diagnosis: Problem not documented 10:15 Appointment; Tristan Garber M.D.|WILLIAN,HEBERT DORSEY, On Encounter Diagnosis: Problem not documented 09:45 Appointment; Claire Tipton A.PShirleyRCyndi On 01-Sep-2016 Encounter Diagnosis: Problem not documented 10:15 Appointment; Claire Tipton A.PShirleyRCyndi On 25-Aug-2016 Encounter Diagnosis: Problem not documented 13:30 Appointment; Tristan Garber M.D.|FACP|M.D.,FACP|M.D.,FACP, On 24-Aug-2016 Encounter Diagnosis: Problem not documented [...]
--- OUTSIDE RECORDS SUMMARY | 2017-03-10 23:37 | External Medical Summary | Summary of Care ---
:1960 Author Name Jcarlos Shelton, FACP, ,, F Tristan Address Unavailable Unavailable , Care Team Providers Name Role Phone Jcarlos Shelton, KELLIEP, ,, F Tristan Unavailable Unavailable Malu Rosales Unavailable Unavailable Unavailable Unavailable Unavailable Functional Status Functional Status Health Issues Name Dates Details Functional status health issues are not documented Status: Cognitive Status Health Issues Name Dates Details Cognitive status health issues are not documented Status: Problems Name Dates Details Cellulitis (682.9, L03.90) Status: Active Pneumonia (486, J18.9) Status: Active Pulmonary embolism (415.19, I26.99) Status: Active Dyspnea (786.09, R06.00) Status: Active Lung cancer (162.9, C34.90) Status: Active Medications Name Dates Details Nicotine 7 MG/24HR Transdermal Patch 24 Hour APPLY 1 PATCH DAILY DIRECTED. Refills: 0 Estephan M.D., FACP, , , Tristan F Start 28-Dec-2015 Active Oxycodone-Acetaminophen 10-325 MG Oral Tablet TAKE 1 TABLET 4 TIMES DAILY NEEDED FOR PAIN. Refills: 0 Estephan M.D., FACP, , , Tristan F Start 28-Dec-2015 Active Potassium Chloride Nehal ER 20 MEQ Oral Tablet Extended Release TAKE 1 TABLET DAILY. Refills: 0 Estealex M.D., FACP, , , Tristan F Start 28-Dec-2015 Active Metoprolol Tartrate 25 MG Oral Tablet TAKE 1 TABLET TWICE DAILY. Refills: 0 Estephan M.D., FACP, , , Tristan F Start 28-Dec-2015 Active Pradaxa 150 MG Oral Capsule TAKE 1 CAPSULE TWICE DAILY. Refills: 0 Estephan M.D., FACP, , , Tristan F Start 28-Dec-2015 Active Mouthwash-AF Oral Liquid Refills: 0 Estephan M.D., FACP, , , Tristan F Start [...] (Allergy) Status: Active Procedures Procedure Dates Details Comprehensive Metabolic Panel 1212 Ordered: 11-Jan-2016 CT [...] Body Surface Area Calculated 1.89 m2 Status: Results Date Description Value Details 11-Jan-2016 10:43 CBC w/ Auto Diff 7150 [...] >60 ml/min Range: >60 EST GFR, NON-AFR [place] >60 ml/min Range: >60 Comments: EST GFR [...] 1.0-1.8 threshold) CALCIUM 9.1 mg/dL Range: 8.5-10.1 19-Jan-2016 07:52 CBC w/ Auto Diff 7150 [...] MAGNESIUM 1260 MAGNESIUM 1.9 mg/dL Range: 1.8-2.4 Plan of Care Name Dates Details Planned Observations Planned Goals not documented Planned Encounters Appointment; Provider: Tristan Garber M.D.|WILLIAN,HEBERT DORSEY, On Jan-2016 16:00 Interventions Provided Labs/Procedures/ImagingCBC w/ Auto Diff 7150; Done: Jan 24 2016 9:31AMCBC w/ Auto Diff 7150; Done: Jan 27 2016 9:10AMCBC w/ Auto Diff 7150; Done: Jan 31 2016 8:55AMMAGNESIUM 1260; Done: Jan 31 2016 8:55AM Instructions Name Dates Details Instructions not documented Encounters Appointment; Tristan Garber M.D.|WILLIAN,HEBERT DORSEY, On 11-Jan-2016 Encounter Diagnosis: Problem not documented 10:15 Appointment; Tristan Garber M.D.|FACP|Cat,KELLIEP|Cat,HEBERT, On 28-Dec-2015 Encounter Diagnosis: Problem not documented 09:15 Appointment; Tristan Garber M.D.|FACP|Cat,FACP|Cat,HEBERT, On 13-Dec-2015 Encounter Diagnosis: Problem not documented 13:15 Appointment; Tristan Garber M.D.|FACP|Cat,FACP|Cat,HEBERT, On Encounter Diagnosis: Problem not documented 09:00 Appointment; Tristan Garber M.D.|FACP|Cat,KELLIEP|Cat,HEBERT, On Encounter Diagnosis: Problem not documented 11:00"
--- OUTSIDE RECORDS SUMMARY | 2017-03-10 23:37 | External Medical Summary | Summary of Care ---
[...] Of Pericardial Window ECG/ EKG ([facility]) Pendin21-Feb-2016 CBC w/ Auto Diff 7150 Ordered: 03-Apr-2016 MAGNESIUM 1260 Ordered: 03-Apr-2016 CBC w/ Auto Diff 7150 Ordered: 03-Apr-2016 Comprehensive Metabolic Panel 1212 Ordered: 03-Apr-2016 MAGNESIUM 1260 Ordered: 03-Apr-2016 CT CHEST/AB/PEL WITH ORAL AND IV CONTRAST Ordered: 03-Apr-2016 Immunization Name Dates Details Immunizations not documented Social History Smoking Status Name Dates Details Unknown if ever smoked Vital Signs Date Test Result Details 03-Apr-2016 16:10 BP Systolic 104 mm[Hg] Status: Comments: Location: ; Position: BP Diastolic 61 mm[Hg] Status: Comments: Location: ; Position: Temperature 97.3 f Status: Comments: Method: Heart Rate 70 /min Status: Comments: Location: ; Weight 134 lb Status: Body Mass Index Calculated 18.17 kg/m2 Status: Body Surface Area Calculated 1.8 m2 Status: 13-Mar-2016 10:06 BP Systolic 114 mm[Hg] Status: Comments: Location: ; Position: BP Diastolic 73 mm[Hg] Status: Comments: Location: ; Position: Temperature 97.9 f Status: Comments: Method: Heart Rate 101 /min Status: Comments: Location: ; Weight 133.6 lb Status: Body Mass Index Calculated 18.12 kg/m2 Status: Body Surface Area Calculated 1.79 m2 Status: Results Date Description Value Details 13-Mar-2016 09:35 CBC w/ Auto Diff 7150 Comments: Manual differential indicated. WBC 11.8 K/uL (Above high threshold) Range: 4.5-11.0 RBC 4.13 mil/uL (Below low threshold) Range: 4.20-5.40 HGB 11.9 g/dL (Below low threshold) Range: 14.0-18.0 HCT 37.4 % (Below low threshold) Range: 42.0-53.0 MCV 90.5 fL Range: 80.0-99.0 MCH 28.7 pg Range: 27.3-32.5 MCHC 31.7 % (Below low threshold) Range: 32.0-36.0 RDW 20.5 % (Above high threshold) Range: 11.6-14.8 PLATELETS 484 K/uL (Above high threshold) Range: 150-400 MPV 7.1 fL Range: 6.0-11.0 09:51 MAGNESIUM 1260 MAGNESIUM 2.0 mg/dL Range: 1.8-2.4 09:51 Comprehensive Metabolic Panel 1212 SODIUM 139 mmol/L Range: 133-144 POTASSIUM 3.7 mmol/L Range: 3.5-5.1 CHLORIDE 101 mmol/L Range: 98-110 CARBON DIOXIDE 28.6 mmol/L Range: 23.0-33.0 ANION GAP 9 mmol/L Range: 6-16 BUN 21 mg/dL (Above high Range: 7-18 threshold) Comments: Variance from previous testing noted.----- CREATININE, SERUM 1.10 mg/dL Range: 0.70-1.30 BUN:CREATININE RATIO 19 EST GFR, >60 ml/min Range: >60 EST GFR, NON-AFR ERITREAN >60 ml/min Range: >60 Comments: EST GFR is reported in ml/min per 1.73 m2 of body surface area. ----- GLUCOSE 149 mg/dL (Above high Range: 70-100 threshold) Comments: Variance from previous testing noted.----- ALK PHOSPHATASE 94 U/L Range: 46-116 TOTAL BILIRUBIN 0.40 mg/dL Range: 0.20-1.00 AST 21 U/L Range: 8-35 ALT 20 U/L Range: 16-63 ALBUMIN 2.5 g/dL (Below low Range: 3.4-5.0 threshold) TOTAL PROTEIN 7.3 g/dL Range: 6.4-8.2 A/G RATIO 0.5 units (Below low Range: 1.0-1.8 threshold) CALCIUM 10.2 mg/dL (Above high Range: 8.5-10.1 threshold) 10:17 Manual Differential 7400 SEGS 88 % (Above high threshold) Range: 37-80 BANDS 0 % Range: 0-7 LYMPH 6 % (Below low threshold) Range: 13-50 MONO 4 % Range: 0-12 EOSIN 2 % Range: 0-7 BASO 0 % Range: 0-3 CODY LYMPH 0 % Range: 0-0 META 0 % Range: 0-0 MYELO 0 % Range: 0-0 PRO 0 % Range: 0-0 BLAST 0 % Range: 0-0 NUC RBC 0 /100 WBC Range: 0-0 SMUDGE 0 /100 WBC PLATELET Adequate Range: Adequate ANISO Mod -Mar-2016 14:06 CBC w/ Auto Diff 7150 Comments: Manual differential indicated. WBC 10.8 K/uL Range: 4.5-11.0 RBC 3.81 mil/uL (Below low threshold) Range: 4.20-5.40 HGB 11.3 g/dL (Below low threshold) Range: 14.0-18.0 HCT 33.9 % (Below low threshold) Range: 42.0-53.0 MCV 88.8 fL Range: 80.0-99.0 MCH 29.7 pg Range: 27.3-32.5 MCHC 33.5 % Range: 32.0-36.0 RDW 20.0 % (Above high threshold) Range: 11.6-14.8 PLATELETS 438 K/uL (Above high threshold) Range: 150-400 MPV 7.2 fL Range: 6.0-11.0 14:14 MAGNESIUM 1260 Comments: Items were attached to this order: PT, CARDIOVASCULAR RADIOLOGIC TECHNOLOGIST Charge MAGNESIUM 1.9 mg/dL Range: 1.8-2.4 14:23 PROTIME PANEL 7000 Comments: Items were attached to this order: PT, CARDIOVASCULAR RADIOLOGIC TECHNOLOGIST Charge PROTIME 35.2 secs (Above high threshold) Range: 12.0-14.9 INR 3.47 14:23 Manual Differential 7400 Comments: Items were attached to this order: PT, CARDIOVASCULAR RADIOLOGIC TECHNOLOGIST Charge SEGS 85 % (Above high threshold) Range: 37-80 BANDS 0 % Range: 0-7 LYMPH 8 % (Below [...] PLATELET Increased (Abnormal) Range: Adequate ANISO Mod POLYCHRO Slight 27-Mar-2016 14:01 CBC w/ Auto Diff 7150 [...] >60 ml/min Range: >60 EST GFR, NON-AFR ERITREAN >60 ml/min Range: >60 Comments: EST GFR [...] Observations CBC w/ Auto Diff 7150 On 18-Apr-2016 Intent MAGNESIUM 1260 On 18-Apr-2016 Intent CBC w/ Auto Diff 7150 On 24-Apr-2016 Intent Comprehensive Metabolic Panel 1212 On 24-Apr-2016 Intent MAGNESIUM 1260 On 24-Apr-2016 Intent Planned Goals not documented Planned Encounters Appointment; Provider: Poornima العلي M.D. On 19-Feb-2017 10:00 Appointment; Provider: Tristan Garber M.D.|WILLIAN,WILLIAN,HEBERT, On Apr-2016 13:00 Appointment; Provider: Schedule Radiology On 20-Apr-2016 09:00 Interventions Provided Labs/Procedures/ImagingCBC w/ Auto Diff 7150; Done: Apr 11 2016 10: 20AMMAGNESIUM 1260; Done: Apr 11 2016 10:20AM Instructions Name Dates Details Instructions not documented Encounters Appointment; Tristan Garber M.D.|FACP|M.DShirley,FACP|MShirleyDShirley,FACP, On 20-Mar-2016 Encounter [...]
--- OUTSIDE RECORDS SUMMARY | 2017-03-10 23:37 | External Medical Summary | Summary of Care ---
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 Quantity: 30 Refills: 2 Jcarlos Shelton, KELLIEP, , , Tristan F Start 06-Sep-2016 Active Allergies and Adverse Reactions Name Dates Details Penicillins (Allergy) Status: Active Past Medical History Name Dates Details History of Pericardial effusion (423.9, I31.3) Status: Resolved Procedures Procedure Dates Details History of Creation Of Pericardial Window CBC w/ Auto Diff 7150 Ordered: 24-Aug-2016 Comprehensive Metabolic Panel 1212 Ordered: 24-Aug-2016 MAGNESIUM 1260 Ordered: 24-Aug-2016 AMYLASE 1250 Ordered: 24-Aug-2016 Lipase 1275 Ordered: 24-Aug-2016 FREE T4 3604 Ordered: 24-Aug-2016 THYROID STIM. HORMONE 3602 Ordered: 24-Aug-2016 MRI ABDOMEN WITHOUT AND WITH [...] Body Surface Area Calculated 1.97 m2 Status: Results Date Description Value Details 22-Aug-2016 08:18 Carbohydrate Antigen 19-9 [id number] Comments: [facility] performed at: [facility], [address] [place] [address], [place], [address], , Websphere Developer: KOURTNEY Wallace MD [place] 19-9 1 U/mL Range: 0-35 Comments: Jaquelin ECLIA methodology----- 30-Aug-2016 13:49 CBC w/ Auto Diff 7150 [...] 0 /100 WBC PLATELET Adequate Range: Adequate Plan of Care Name Dates Details Planned Observations CBC w/ Auto Diff 7150 On Intent Comprehensive Metabolic Panel 1212 On Intent MAGNESIUM 1260 On Intent AMYLASE 1250 On Intent Lipase 1275 On Intent FREE T4 3604 On Intent THYROID STIM. HORMONE 3602 On Intent Planned Goals not documented Planned Encounters Appointment; Provider: Poornima العلي M.D. On 19-Feb-2017 10:00 Appointment; Provider: Tristan Garber M.D.|FACPMisti,KELLIEPHEBERT Chappell, On September-2016 11:15 Interventions Provided Labs/Procedures/ImagingCBC w/ Auto Diff 7150; Done: Sep 20 2016 12:45PMCBC w/ Auto Diff 7150; Done: Aug 30 2016 1:20PMCBC w/ Auto Diff 7150; Done: Sep 06 2016 8:40AMCBC w/ Auto Diff 7150; Done: Sep 13 2016 1:30PM Instructions Name Dates Details Instructions not documented Encounters Appointment; Tristan Garber M.D.|KELLIEPMisti,KELLIEP|Cat,KELLIEP, On 27-Jul-2016 Encounter Diagnosis: Problem not documented 11:00 Appointment; Tristan Garber M.D.|WILLIAN,KELLIEP|Cat,KELLIEP, On 18-Jul-2016 Encounter Diagnosis: Problem not documented 13:15 Appointment; Claudio Ritchie M.D. On 13-Jul-2016 Encounter Diagnosis: Problem not documented 11:30 Appointment; Caridad Kuhn On 13-Jul-2016 Encounter Diagnosis: Problem not documented 11:00 Appointment; Poornima العلي M.D. On 12-Jul-2016 Encounter Diagnosis: Problem not documented 11:30 Appointment; Tristan Garber M.D.|WILLIAN,FACP|Cat,FACP, On 06-Jul-2016 Encounter Diagnosis: Problem not documented 15:15 Appointment; Tristan Garber M.D.|FACP|M.D.,FACP|M.D.,FACP, On 12-Jun-2016 Encounter Diagnosis: Problem not documented 15:00 Appointment; Tristan Garber M.D.|FACP|M.DShirley,FACP|M.DShirley,FACP, On 16-May-2016 Encounter Diagnosis: Problem not documented 11:00 Appointment; Tristan Garber M.D.|FACP|M.D.,FACP|MShirleyDShirley,FACP, On 01-May-2016 Encounter Diagnosis: Problem not documented 13:30 Appointment; Tristan Garber M.D.|FACP|M.DShirley,FACP|MShirleyDShirley,FACP, On 24-Apr-2016 Encounter Diagnosis: Problem not documented 13:00 Appointment; Tristan Garber M.D.|FACP|M.DShirley,FACP|MShirleyDShirley,FACP, On 03-Apr-2016 Encounter Diagnosis: Problem not documented 16:00 Appointment; Tristan Garber M.D.|FACP|M.DShirley,FACP|M.DShirley,FACP, On 20-Mar-2016 Encounter Diagnosis: Problem not documented 16:00 Appointment; Tristan Garber M.D.|FACP|M.DShirley,FACP|MTerva,FACP, On 13-Mar-2016 Encounter Diagnosis: Problem not documented [...] Problem not documented 10:15 Appointment; Tristan Garber M.D.|KELLIEP|Cat,HEBERT|Cat,HEBERT, On 28-Dec-2015 Encounter Diagnosis: Problem not documented 09:15 Appointment; Tristan Garber M.D.|KELLIEP|Cat,KELLIEP|Cat,HEBERT, On 13-Dec-2015 Encounter Diagnosis: Problem not documented 13:15 Appointment; Tristan Garber M.D.|KELLIEP|Cat,KELLIEP|Cat,HEBERT, On Encounter Diagnosis: Problem not documented 09:00 Appointment; Tristan Garber M.D.|WILLIAN,HEBERT|Cat,HEBERT, On Encounter Diagnosis: Problem not documented 11:00"
--- OUTSIDE RECORDS SUMMARY | 2017-03-10 23:37 | External Medical Summary ---
:1960 Author Name GENERATED, SYSTEM Care Team Providers Name Role Phone MD MEDINA CLARICE Primary Care Provider [phone] Reason For Visit Chief Complaint DIZZY Social History Functional Status Vital Signs Results Chemistry from 07/07/2016 12:53 [id number] MMOL/L (136-145 MMOL/L) POTASSIUM3.8 MMOL/L (3.5-5.1 MMOL/L) ADVWOUVF807 MMOL/L (98-107 MMOL/L) EOO196.3 MMOL/L (21.0-32.0 MMOL/L) *ANION GAP10.7 MMOL/L (8.0-16.0 MMOL/L) BUN12 MG/DL (7-18 MG/DL) CREATININE0.92 MG/DL (0.70-1.30 MG/DL) *BUN/CREATININE RATIO13.0 (9.1-17.0 ) RJPPVMC071 MG/DL H (65-99 MG/DL) *GFR EST NON AFR [place] RICAN>90 ML/MIN *GFR EST AFR AMER>90 ML/MIN CALCIUM8.3 MG/DL L (8.5-10.1 MG/DL) BILIRUBIN TOTAL0.20 MG/DL (0.20-1.00 MG/DL) TOTAL PROTEIN6.4 GM/DL (6.4-8.2 GM/DL) ALBUMIN2.8 GM/DL L (3.4-5.0 GM/DL) *GLOBULIN3.6 GM/DL H (2.3-3.5 GM/DL) *A/G RATIO0.8 MG/DL L (1.5-2.2 MG/DL) ALK PHOS64 U/L (46-116 U/L) ALT (SGPT)14 U/L (14-59 U/L) AST (SGOT)16 U/L (15-37 U/L) MAGNESIUM1.7 MG/DL L (1.8-2.4 MG/DL) TROPONIN-I<0.017 NG/ML (0.000-0.056 NG/ML) TSH1.015 UIU/ML (0.340-4.820 UIU/ML)Hematology from 07/07/2016 12:53 AMWBC8.6 X10e3/UL (3.6-11.2 X10e3/UL) RBC4.08 X10e6/UL (4.06-5.63 X10e6/UL) XUTDMKZYDQ03.2 G/DL L (12.5-16.3 G/DL) BSGJNYHIGF12.7 % (36.7-47.1 %) *MCV90.0 FL (80.0-100.0 FL) *MCH29.9 PG (27.0-33.0 PG) *MCHC33.2 G/DL (32.0-36.0 G/DL) *RDW18.2 % H (12.3-17.0 %) *RDWSD58.6 H (37.1-47.8 ) SLZZDUIO457 X10e3/UL (159-386 X10e3/UL) *MPV7.3 FL L (7.4-10.4 FL) AUTOMATED DIFFPERFORMED SEGS78.6 % *RKYKCWHVCWX37.6 % *MONOCYTES6.9 % *EOSINOPHILS0.1 % *BASOPHILS0.8 % *ABSOLUTE NEUTROPHILS6.70 X10e3/UL (1.80-7.80 X10e3/UL) *ABSOLUTE LYMPHOCYTES1.20 X10e3/UL (1.00-3.00 X10e3/UL) *ABSOLUTE MONOCYTES0.60 X10e3/UL (0.30-1.00 X10e3/UL) *ABSOLUTE EOSINOPHILS0.00 X10e3/UL (0.00-0.50 X10e3/UL) *ABSOLUTE BASOPHILS0.10 X10e3/UL (0.00-0.20 X10e3/UL)Coagulation from 07/07/2016 12:53 AM*PROTHROMBIN TIME22.5 SECONDS H (9.4-11.5 SECONDS) *INR2.2 H (0.9-1.1 ) PARTIAL THROMBOPLASTIN TIME38.0 SECONDS H (23.0-31.0 SECONDS)[facility] VIEWHistory: [id number] y/o M c/o resolved palpitations onset this PM. Pt reports he has been in afib previously and this feels similar. Pt has the palpitations when he coughs. He has a chronic cough due to radiation therapy for his lung cancer. Priors: Chest x-ray dated 02/19/2016 Findings: The heart size and pulmonary vasculature are within normal limits. Since the prior study there has been interval development of a left suprahilar density, suspicious for recurrent neoplasm versus scarring. There has been development of a small pleural effusions and mild bilateral lower lobe atelectasis. No pneumothorax is seen. A left PICC line is in place. Impression: Interval development of an irregular left suprahilar density, suspicious for recurrent neoplasm versus scarring. Correlation CTA of the chest is suggested for further evaluation. Development of a small pleural effusions and mild bilateral lower lobe atelectasis. Electronically signed by: Shadia Owusu MD Dictated: 07/07/2016 10:12 Problems Encounter Diagnosis No relevant problems exist. [...] Plan of Care Procedures Completed Procedure Code: [id number] Procedure Name: not valued, on 12/19/2015 10: 46 AMCompleted Procedure Code: [id number] Procedure Name: not valued, on 12/19/2015 10:38 AMCompleted Procedure Code: [id number] Procedure Name: not valued, on 2015 12:00 AMCompleted Procedure Code: [id number] Procedure Name: not valued, on 12:00 AM Immunizations No immunizations administered or ordered. Hospital Course Hospital Discharge Instructions Allergies, Adverse Reactions, Alerts Penicillins causes Severe Hives. Onset 1967.Latex Allergy has not been assessed.IV Contrast Allergy has not been assessed.No Known Food Allergies. Medication Medication reconciliation has not been performed.
--- OUTSIDE RECORDS SUMMARY | 2017-03-10 23:38 | External Medical Summary | Summary of Care ---
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: Active Pulmonary embolism (415.19, I26.99) Status: Active Cough [...] Of Pericardial Window ECG/ EKG (Specialists) Pendin21-Feb-2016 MAGNESIUM 1260 Ordered: 13-Mar-2016 CBC w/ Auto Diff 7150 Ordered: 13-Mar-2016 Comprehensive Metabolic Panel 1212 Ordered: 13-Mar-2016 Immunization Name Dates Details Immunizations not documented Social History Smoking Status Name Dates Details Unknown if ever smoked Vital Signs Date Test Result Details 13-Mar-2016 10:06 BP Systolic 114 mm[Hg] Status: Comments: Location: ; Position: BP Diastolic 73 mm[Hg] Status: Comments: Location: ; Position: Temperature 97.9 f Status: Comments: Method: Heart Rate 101 /min Status: Comments: Location: ; Weight 133.6 lb Status: Body Mass Index Calculated 18.12 kg/m2 Status: Body Surface Area Calculated 1.79 m2 Status: Results Date Description Value Details 07-Mar-2016 11:51 CBC w/ Auto Diff 7150 [...] 03/08/2016 12:13 X CHEST PA & LAT 13-Mar-2016 09:35 CBC w/ Auto Diff 7150 [...] >60 ml/min Range: >60 EST GFR, NON-AFR PALESTINIAN >60 ml/min Range: >60 Comments: EST GFR [...] WBC PLATELET Adequate Range: Adequate ANISO Mod 20-Mar-2016 14:06 CBC w/ Auto Diff 7150 Comments: [...] Items were attached to this order: PT, RIBBON HAND Charge MAGNESIUM 1.9 mg/dL Range: 1.8-2.4 14:23 PROTIME PANEL 7000 Comments: Items were attached to this order: PT, RIBBON HAND Charge PROTIME 35.2 secs (Above high threshold) Range: 12.0-14.9 INR 3.47 14:23 Manual Differential 7400 Comments: Items were attached to this order: PT, RIBBON HAND Charge SEGS 85 % (Above high threshold) [...] of Care Name Dates Details Planned Observations MAGNESIUM 1260 On 23-Mar-2016 Intent CBC w/ Auto Diff 7150 On 23-Mar-2016 Intent Comprehensive Metabolic Panel 1212 On 23-Mar-2016 Intent Planned Goals not documented Planned Encounters Appointment; Provider: Poornima العلي M.D. On 19-Feb-2017 10:00 Appointment; Provider: Schedule Radiology On 27-Mar-2016 15:00 Appointment; Provider: Schedule Radiology On 27-Mar-2016 15:00 Interventions Provided Labs/Procedures/ImagingCBC w/ Auto Diff 7150; Done: Mar 20 2016 1:40PMCBC w/ Auto Diff 7150; Done: Mar 27 2016 12:55PMMAGNESIUM 1260; Done: Mar 20 2016 1: 40PMMAGNESIUM 1260; Done: Mar 27 2016 12:55PM Instructions Name Dates Details Instructions not documented Encounters Appointment; Sarkis Woods M.D. On 08-Mar-2016 Encounter Diagnosis: Problem not documented 09:00 Appointment; Tristan Garber M.D.|WILLIAN,WILLIAN,HEBERT, On 22-Feb-2016 Encounter Diagnosis: Problem not documented 14:15 Appointment; Poornima العلي M.D. On 21-Feb-2016 Encounter Diagnosis: Problem not documented 10:15 Appointment; Tristan Garber M.D.|FACP|MShirleyDShirley,FACP|Cat,FACP, On 01-Feb-2016 Encounter Diagnosis: Problem not documented 16:00 Appointment; Tristan Garber M.D.|FACP|M.DShirley,FACP|Cat,FACP, On 11-Jan-2016 Encounter Diagnosis: Problem not documented 10:15 Appointment; Tristan Garber M.D.|FACP|MShirleyDShirley,FACP|Cat,FACP, On 28-Dec-2015 Encounter Diagnosis: Problem not documented 09:15 Appointment; Tristan Garber M.D.|FACP|MShirleyDShirley,FACP|Cat,FACP, On 13-Dec-2015 Encounter Diagnosis: Problem not documented 13:15 Appointment; Tristan Garber M.D.|FACP|M.DShirley,FACP|MTreva,FACP, On Encounter Diagnosis: Problem not documented 09:00 Appointment; Tristan Garber M.D.|FACP|M.DShirley,FACP|MTreva,FACP, On Encounter Diagnosis: Problem not documented 11:00"
--- OUTSIDE RECORDS SUMMARY | 2017-03-10 23:38 | External Medical Summary | Summary of Care ---
:1960 Author Name Claire Tipton APRN Address [address] Unavailable [place], [place] [id number] Care Team Providers Name Role Phone Cordell [...] daily Quantity: 30 Refills: 5 Jcarlos Shelton, FACP, , , Tristan F [...] 1 TABLET DAILY. Quantity: 30 Refills: 1 KELLIE Garber M.D.P, , , Tristan F [...] >60 ml/min Range: >60 EST GFR, NON-AFR J[place]ICAN >60 ml/min Range: >60 Comments: EST GFR [...] >60 ml/min Range: >60 EST GFR, NON-AFR JAMAICAN >60 ml/min Range: >60 Comments: EST GFR [...] WBC PLATELET Adequate Range: Adequate ANISO Slight 10:44 CBC w/ Auto Diff 7150 Comments: [...] >60 ml/min Range: >60 EST GFR, NON-AFR J[place]ICAN >60 ml/min Range: >60 Comments: EST GFR [...] 1.0-1.8 threshold) CALCIUM 8.9 mg/dL Range: 8.5-10.1 11:21 Manual Differential 7400 SEGS 86 % (Above high threshold) Range: 37-80 BANDS 1 % Range: 0-7 LYMPH 12 % (Below [...] 0 /100 WBC PLATELET Adequate Range: Adequate MACROCYT Slight Plan of Care Name Dates Details Planned Observations CBC w/ Auto Diff 7150 On Intent CBC w/ Auto Diff 7150 On Intent Comprehensive Metabolic Panel 1212 On Intent Planned Goals not documented Planned Encounters Appointment; Provider: Poornima العلي M.D. On 19-Feb-2017 10:00 Appointment; Provider: Tristan Garber M.D.|WILLIAN DORSEY FACP, On October-2016 11:45 Instructions Name Dates Details Instructions not documented Encounters Appointment; Tristan Garber M.D.|WILLIAN,HEBERT DORSEY, On Encounter Diagnosis: Problem not documented 11:15 Appointment; Tristan Garber M.D.|WILLIAN,WILLIAN,HEBERT, On Encounter Diagnosis: Problem not documented 10:15 Appointment; Tristan Garber M.D.|FACP|M.D.,FACP|M.D.,FACP, On Encounter Diagnosis: Problem not documented 09:45 Appointment; Claire Tipton A.P.R.N. On 01-Sep-2016 Encounter Diagnosis: Problem not documented 10:15 Appointment; Claire Tipton A.P.R.N. On 25-Aug-2016 Encounter Diagnosis: Problem not documented 13:30 Appointment; Tristan Garber M.D.|FACP|M.DShirley,FACP|M.DShirley,FACP, On 24-Aug-2016 Encounter Diagnosis: Problem not documented 11:00 Appointment; Tristan Garber M.D.|FACP|M.D.,FACP|M.DShirley,FACP, On 27-Jul-2016 Encounter Diagnosis: Problem not documented 11:00 Appointment; Tristan Garber M.D.|FACP|M.DShirley,FACP|MShirleyDShirley,FACP, On 18-Jul-2016 Encounter Diagnosis: Problem not documented 13:15 Appointment; Claudio Ritchie M.D. On 13-Jul-2016 Encounter Diagnosis: Problem not documented 11:30 Appointment; Caridad Kuhn On 13-Jul-2016 Encounter Diagnosis: Problem not documented 11:00 Appointment; Poornima العلي M.D. On 12-Jul-2016 Encounter Diagnosis: Problem not documented 11:30 Appointment; Tristan Garber M.D.|FACP|M.DShirley,FACP|MShirleyDShirley,FACP, On 06-Jul-2016 Encounter Diagnosis: Problem not documented 15:15 Appointment; Tristan Garber M.D.|FACP|M.D.,FACP|M.DShirley,FACP, On 12-Jun-2016 Encounter Diagnosis: Problem not documented 15:00 Appointment; Tristan Garber M.D.|FACP|M.D.,FACP|M.DShirley,FACP, On 16-May-2016 Encounter Diagnosis: Problem not documented 11:00 Appointment; Tristan Garber M.D.|FACP|M.DShirley,FACP|M.DShirley,FACP, On 01-May-2016 Encounter Diagnosis: Problem not documented [...] Problem not documented 10:15 Appointment; Tristan Garber M.D.|FACP|M.DShirlye,FACP|M.D.,FACP, On 01-Feb-2016 Encounter Diagnosis: Problem not documented 16:00 Appointment; Tristan Garber M.D.|FACP|M.D.,FACP|M.D.,FACP, On 11-Jan-2016 Encounter Diagnosis: Problem not documented 10:15 Appointment; Tristan Garber M.D.|FACP|M.D.,FACP|M.D.,FACP, On 28-Dec-2015 Encounter Diagnosis: Problem not documented 09:15 Appointment; Tristan Garber M.D.|FACP|M.D.,FACP|M.D.,FACP, On 13-Dec-2015 Encounter Diagnosis: Problem not documented 13:15 Appointment; Tristan Garber M.D.|FACP|M.D.,FACP|M.D.,HEBERT, On Encounter Diagnosis: Problem not documented 09:00 Appointment; Tristan Garber M.D.|WILLIAN,WILLIAN,HEBERT, On Encounter Diagnosis: Problem not documented 11:00"
--- OUTSIDE RECORDS SUMMARY | 2017-03-10 23:38 | External Medical Summary ---
:1960 Author Name GENERATED, SYSTEM Care Team Providers Name Role Phone MD CAROL, NADINE Primary Care Provider [phone] Reason For Visit Chief Complaint NECK LESION Social History Functional Status Vital Signs Results [...] Plan of Care Procedures Completed Procedure Code: [id number] Procedure Name: not valued, on 12/19/2015 10: 46 AMCompleted Procedure Code: [id number] Procedure Name: not valued, on 12/19/2015 10:38 AMCompleted Procedure Code: [id number] Procedure Name: not valued, on 2015 12:00 AMCompleted Procedure Code: [id number] Procedure Name: not valued, on 12:00 AM Immunizations No immunization data could be retrieved. Hospital Course Hospital Discharge Instructions Allergies, Adverse Reactions, Alerts This section is ocean import representative of the current allergy information, at the time of the CCD generation. In the case of regeneration of the CCD, the allergy information may not reflect the state of known allergies at the time of the CCD' s subject visit. Penicillins causes Severe Hives. Onset 1967.Latex Allergy has not been assessed.IV Contrast Allergy has not been assessed.No Known Food Allergies. Medication Medication reconciliation has not been performed.
--- OUTSIDE RECORDS SUMMARY | 2017-03-10 23:38 | External Medical Summary | Summary of Care ---
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) Status: Active Medications Name Dates Details Metoprolol Tartrate 50 MG Oral Tablet TAKE ONE TABLET BY MOUTH TWICE A DAY ( MORNING AND AT BEDTIME) Quantity: 180 Refills: 3 Tin P.Cordell Jessica Start 09-Aug-2016 Active Folic Acid 1 MG [...] >60 ml/min Range: >60 EST GFR, NON-AFR CYMRO >60 ml/min Range: >60 Comments: EST GFR [...] Range: 0.80-1.67 22-Aug-2016 08:18 Carbohydrate Antigen 19-9 [id number] Comments: Testing performed at: [DA] [facility], [address] [place] [address] [address], [place], [address], , Traction Power Engineer: KOURTNEY Wallace MD [place] 19-9 1 U/mL Range: 0-35 Comments: Jaquelin ECLIA methodology----- Plan of Care Name Dates Details Planned Observations CBC w/ Auto Diff 7150 On 30-Aug-2016 Intent CBC w/ Auto Diff 7150 On 06-Sep-2016 Intent CBC w/ Auto Diff 7150 On 13-Sep-2016 Intent CBC w/ Auto Diff 7150 On [...] 10:00 Appointment; Provider: Tristan Garber M.D.|WILLIAN,WILLIAN,HEBERT, On September-2016 11:15 Instructions Name Dates Details Instructions not documented Encounters Appointment; Tristan Garber M.D.|WILLIAN,WILLIAN,HEBERT, On 27-Jul-2016 Encounter Diagnosis: Problem not documented 11:00 Appointment; Tristan Garber M.D.|WILLIAN,WILLIAN,HEBERT, On 18-Jul-2016 Encounter Diagnosis: Problem not documented 13:15 Appointment; Claudio Ritchie M.D. On 13-Jul-2016 Encounter Diagnosis: Problem not documented 11:30 Appointment; Bam, Caridad On 13-Jul-2016 Encounter Diagnosis: Problem not documented [...] Problem not documented 09:15 Appointment; Tristan Garber M.D.|FACP|M.DShirley,FACP|Cat,FACP, On 13-Dec-2015 Encounter Diagnosis: Problem not documented 13:15 Appointment; Tristan Garber M.D.|FACP|M.DShirley,FACP|MTreva,FACP, On Encounter Diagnosis: Problem not documented 09:00 Appointment; Tristan Garber M.D.|FACP|M.DShirley,FACP|MTreva,FACP, On Encounter Diagnosis: Problem not documented 11:00"
--- OUTSIDE RECORDS SUMMARY | 2017-03-10 23:38 | External Medical Summary | Summary of Care ---
[...] Window CBC w/ Auto Diff 7150 Ordered: 27-Jul-2016 CBC w/ Auto Diff 7150 Ordered: 27-Jul-2016 Comprehensive Metabolic Panel 1212 Ordered: 27-Jul-2016 Carbohydrate Antigen 19-9 [id number] Ordered: 27-Jul-2016 THYROID STIM. HORMONE 3602 Ordered: 27-Jul-2016 AMYLASE 1250 Ordered: 27-Jul-2016 Lipase 1275 Ordered: 27-Jul-2016 FREE T4 3604 Ordered: 27-Jul-2016 MRI ABDOMEN WITHOUT AND WITH CONTRAST WITH MRCP Ordered: 24-Jul-2016 Immunization Name Dates Details Immunizations not documented Family History Sister Name Dates Details Family history of malignant neoplasm of breast (V16.3, Z80.3) Status: Active Social History Name Dates Details - Status: Smoking Status Name Dates Details Current every day smoker Vital Signs Date Test Result Details 27-Jul-2016 10:55 BP Systolic 96 mm[Hg] Status: Comments: Location: ; Position: BP Diastolic 52 mm[Hg] Status: Comments: Location: ; Position: Temperature 97.7 f Status: Heart Rate 70 /min Status: Comments: Location: ; Weight 168 lb Status: Body Mass Index Calculated 22.79 kg/m2 Status: Body Surface Area Calculated 1.98 m2 Status: 18-Jul-2016 13:17 BP Systolic 106 mm[Hg] Status: Comments: Location: ; Position: BP Diastolic 67 mm[Hg] Status: Comments: Location: ; Position: Temperature 97.7 f Status: Comments: Method: Heart Rate 83 /min Status: Comments: Location: ; Weight 162 lb Status: Body Mass Index Calculated 21.97 kg/m2 Status: Body Surface Area Calculated 1.95 m2 Status: 12-Jul-2016 11:42 BP Systolic 100 mm[Hg] Status: Comments: Location: ; Position: BP Diastolic 68 mm[Hg] Status: Comments: Location: ; Position: Heart Rate 60 /min Status: Comments: Location: ; Weight 164.5 lb Status: Physical Findings 99 Status: Comments: O2 Saturation Body Mass Index Calculated 22.31 kg/m2 Status: Body Surface Area Calculated 1.96 m2 Status: Results Date Description Value Details 10-Jul-2016 10:25 CBC w/ Auto Diff 7150 [...] or Dx Colonoscopy Abnormal - With Polyps 17-Jul-2016 10:33 CBC w/ Auto Diff 7150 WBC 8.1 K/uL Range: 4.5-11.0 RBC 4.98 mil/uL Range: 4.20-5.40 HGB 15.0 g/dL Range: 14.0-18.0 HCT 46.4 % Range: 42.0-53.0 MCV 93.2 fL Range: 80.0-99.0 MCH 30.1 pg Range: 27.3-32.5 MCHC 32.3 % Range: 32.0-36.0 RDW 17.3 % (Above high threshold) Range: 11.6-14.8 PLATELETS 241 K/uL Range: 150-400 MPV 7.3 fL Range: 6.0-11.0 %NEUTRO 73.1 % Range: 37.0-80.0 %LYMPHS 16.4 % Range: 13.0-50.0 %MONO 6.2 % Range: 0.0-12.0 %EOS 1.9 % Range: 0.0-7.0 %BASO 0.6 % Range: 0.0-2.5 %GIOVANNI 1.8 % Range: 0.0-5.0 NEUTRO 5.9 K/uL Range: 2.0-6.9 LYMPHS 1.3 K/uL Range: 0.6-3.4 MONOS 0.5 K/uL Range: 0.0-0.9 EOS 0.2 K/uL Range: 0.0-0.7 BASO 0.1 K/uL Range: 0.0-0.2 24-Jul-2016 09:10 CT CHEST/AB/PEL WITH ORAL AND IV Comments: Exam Date: 01/2017 08:01Dictation Date: 07/24/2016 09:10 CONTRAST XC CHEST/AB/PEL 45 [place] 10:22 CBC w/ Auto Diff 7150 WBC 7.3 K/uL Range: 4.5-11.0 RBC 4.66 mil/uL Range: 4.20-5.40 HGB 13.7 g/dL (Below low threshold) Range: 14.0-18.0 HCT 42.4 % Range: 42.0-53.0 MCV 90.9 fL Range: 80.0-99.0 MCH 29.5 pg Range: 27.3-32.5 MCHC 32.4 % Range: 32.0-36.0 RDW 16.3 % (Above high threshold) Range: 11.6-14.8 PLATELETS 208 K/uL Range: 150-400 MPV 7.0 fL Range: 6.0-11.0 %NEUTRO 77.7 % Range: 37.0-80.0 %LYMPHS 13.5 % Range: 13.0-50.0 %MONO 5.7 % Range: 0.0-12.0 %EOS 1.4 % Range: 0.0-7.0 %BASO 0.6 % Range: 0.0-2.5 %GIOVANNI 1.1 % Range: 0.0-5.0 NEUTRO 5.7 K/uL Range: 2.0-6.9 LYMPHS 1.0 K/uL Range: 0.6-3.4 MONOS 0.4 K/uL Range: 0.0-0.9 EOS 0.1 K/uL Range: 0.0-0.7 BASO 0.1 K/uL Range: 0.0-0.2 10:28 Lipase 1275 LIPASE 100 U/L Range: 73-393 10:28 Comprehensive Metabolic Panel 1212 SODIUM 137 mmol/L Range: 133-144 POTASSIUM 3.8 mmol/L Range: 3.5-5.1 CHLORIDE 102 mmol/L Range: 98-110 CARBON DIOXIDE 24.9 mmol/L Range: 23.0-33.0 ANION GAP 10 mmol/L Range: 6-16 BUN 10 mg/dL Range: 7-18 CREATININE, SERUM 0.81 mg/dL Range: 0.70-1.30 BUN:CREATININE RATIO 12 EST GFR, >60 ml/min Range: >60 EST GFR, NON-AFR TRINIDADIAN >60 ml/min Range: >60 Comments: EST GFR is reported in ml/min per 1.73 m2 of body surface area. ----- GLUCOSE 83 mg/dL Range: 70-100 ALK PHOSPHATASE 70 U/L Range: 46-116 TOTAL BILIRUBIN 0.40 mg/dL Range: 0.20-1.00 AST 17 U/L Range: 8-35 ALT 13 U/L (Below low Range: 16-63 threshold) ALBUMIN 2.9 g/dL (Below low Range: 3.4-5.0 threshold) TOTAL PROTEIN 6.6 g/dL Range: 6.4-8.2 A/G RATIO 0.8 units (Below low Range: 1.0-1.8 threshold) CALCIUM 8.6 mg/dL Range: 8.5-10.1 10:28 MAGNESIUM 1260 MAGNESIUM 1.8 mg/dL Range: 1.8-2.4 10:28 AMYLASE 1250 AMYLASE 48 U/L Range: 25-115 10:38 FREE T4 3604 FREE T4 1.00 ng/dL Range: 0.80-1.67 10:38 THYROID STIM. HORMONE 3602 THYROID STIM. HORMONE 2.697 uIU/mL Range: 0.550-4.780 Comments: No established reference ranges for infants and children &lt ;2 years of age----- 31-Jul-2016 11:24 CBC w/ Auto Diff 7150 [...] WBC PLATELET Adequate Range: Adequate ANISO Slight Plan of Care Name Dates Details Planned Observations CBC w/ Auto Diff 7150 On 14-Aug-2016 Intent CBC w/ Auto Diff 7150 On 21-Aug-2016 Intent Comprehensive Metabolic Panel 1212 On 21-Aug-2016 Intent Carbohydrate Antigen 19-9 [id number] On 21-Aug-2016 Intent THYROID STIM. HORMONE 3602 On 21-Aug-2016 Intent AMYLASE 1250 On 21-Aug-2016 Intent Lipase 1275 On 21-Aug-2016 Intent FREE T4 3604 On 21-Aug-2016 Intent Planned Goals not documented Planned Encounters Appointment; Provider: Poornima العلي M.D. On 19-Feb-2017 10:00 Appointment; Provider: Tristan Garber M.D.|WILLIAN,HEBERT DORSEY, On Aug-2016 11:00 Appointment; Provider: Schedule Radiology On 07-Aug-2016 11:15 Appointment; Provider: Schedule Radiology On 07-Aug-2016 11:00 Interventions Provided Labs/Procedures/ImagingCBC w/ Auto Diff 7150; Done: Jul 31 2016 10:45AMCBC w/ Auto Diff 7150; Done: Aug 07 2016 10:20AM Instructions Name Dates Details Instructions not documented Encounters Appointment; Tristan Garber M.D.|WILLIAN,HEBERT DORSEY, On 18-Jul-2016 Encounter Diagnosis: Problem not documented 13:15 Appointment; Claudio Ritchie M.D. On 13-Jul-2016 Encounter Diagnosis: Problem not documented 11:30 Appointment; Caridad Kuhn On 13-Jul-2016 Encounter Diagnosis: Problem not documented 11:00 Appointment; Poornima العلي M.D. On 12-Jul-2016 Encounter Diagnosis: Problem not documented 11:30 Appointment; Tristan Garber M.D.|WILLIAN,HEBERT DORSEY, On 06-Jul-2016 Encounter Diagnosis: Problem not documented 15:15 Appointment; Tristan Garber M.D.|WILLIAN,HEBERT|Cat,HEBERT, On 12-Jun-2016 Encounter Diagnosis: Problem not documented 15:00 Appointment; Tristan Garber M.D.|FACP|M.D.,FACP|M.D.,FACP, On 16-May-2016 Encounter Diagnosis: Problem not documented 11:00 Appointment; Tristan Garber M.D.|FACP|M.D.,FACP|M.D.,FACP, On 01-May-2016 Encounter Diagnosis: Problem not documented 13:30 Appointment; Tristan Garber M.D.|FACP|M.D.,FACP|M.D.,FACP, On 24-Apr-2016 Encounter Diagnosis: Problem not documented 13:00 Appointment; Tristan Garber M.D.|FACP|M.D.,FACP|M.DShirley,FACP, On 03-Apr-2016 Encounter Diagnosis: Problem not documented 16:00 Appointment; Tristan Garber M.D.|FACP|M.DShirley,FACP|M.DShirley,FACP, On 20-Mar-2016 Encounter Diagnosis: Problem not documented 16:00 Appointment; Tristan Garber M.D.|FACP|M.D.,FACP|M.D.,FACP, On 13-Mar-2016 Encounter Diagnosis: Problem not documented 09:30 Appointment; Sarkis Woods M.D. On 08-Mar-2016 Encounter Diagnosis: Problem not documented 09:00 Appointment; Tristan Garber M.D.|FACP|M.D.,FACP|MShirleyDShirley,FACP, On 22-Feb-2016 Encounter Diagnosis: Problem not documented 14:15 Appointment; Poornima العلي M.D. On 21-Feb-2016 Encounter Diagnosis: Problem not documented 10:15 Appointment; Tristan Garber M.D.|FACP|M.D.,FACP|M.DShirley,FACP, On 01-Feb-2016 Encounter Diagnosis: Problem not documented 16:00 Appointment; Tristan Garber M.D.|FACP|M.D.,FACP|M.D.,FACP, On 11-Jan-2016 Encounter Diagnosis: Problem not documented 10:15 Appointment; Tristan Garber M.D.|FACP|M.D.,FACP|M.D.,HEBERT, On 28-Dec-2015 Encounter Diagnosis: Problem not documented 09:15 Appointment; Tristan Garber M.D.|HEBERT|Cat,HEBERT|Cat,HEBERT, On 13-Dec-2015 Encounter Diagnosis: Problem not documented 13:15 Appointment; Tristan Garber M.D.|HEBERT|Cat,HEBERT|Cat,HEBERT, On Encounter Diagnosis: Problem not documented 09:00 Appointment; Tristan Garber M.D.|WILLIAN,HEBERT|Cat,HEBERT, On Encounter Diagnosis: Problem not documented 11:00"
--- OUTSIDE RECORDS SUMMARY | 2017-03-10 23:39 | External Medical Summary ---
:1960 Author Name GENERATED, SYSTEM Care Team Providers Name Role Phone MD MEDINA CLARICE Primary Care Provider [phone] Reason For Visit Chief Complaint DEHYDRATED Social History Functional Status Vital Signs Results Chemistry from 12/17/2015 9:59 [id number] MMOL/L (136-145 MMOL/L) POTASSIUM4.1 MMOL/L (3.5-5.1 MMOL/L) [id number] MMOL/L (98-107 MMOL/L) THX453.4 MMOL/L (21.0-32.0 MMOL/L) *ANION GAP8.6 MMOL/L (8.0-16.0 MMOL/L) BUN18 MG/DL (7-18 MG/DL) CREATININE1.33 MG/DL H (0.70-1.30 MG/DL) *BUN/CREATININE RATIO13.5 (9.1-17.0 ) YRMUKFF326 MG/DL H (65-99 MG/DL) *GFR EST NON AFR KFYVJAIR04 ML/MIN *GFR EST AFR AMER69 ML/MIN CALCIUM9.3 MG/DL (8.5-10.1 MG/DL) BILIRUBIN TOTAL0.80 MG/DL (0.20-1.00 MG/DL) TOTAL PROTEIN7.6 GM/DL (6.4-8.2 GM/DL) ALBUMIN2.8 GM/DL L (3.4-5.0 GM/DL) *GLOBULIN4.8 GM/DL H (2.3-3.5 GM/DL) *A/G RATIO0.6 MG/DL L (1.5-2.2 MG/DL) ALK PHOS95 U/L (46-116 U/L) ALT (SGPT)26 U/L (14-59 U/L) AST (SGOT)18 U/L (15-37 U/L) [id number] U/L (73-393 U/L) TROPONIN-I<0.017 NG/ML (0.000-0.056 NG/ML)Hematology from 12/17/2015 9:59 AMWBC7.6 X10e3/UL (3.6-11.2 X10e3/UL) RBC4.06 X10e6/UL (4.06-5.63 X10e6/UL) RNHBYPIULX64.2 G/DL L (12.5-16.3 G/DL) UHHJTMDWWQ96.8 % L (36.7-47.1 %) *MCV83.3 FL (80.0-100.0 FL) *MCH27.7 PG (27.0-33.0 PG) *MCHC33.2 G/DL (32.0-36.0 G/DL) *RDW15.6 % (12.3-17.0 %) *RDWSD45.9 (37.1-47.8 ) FBJLGUME915 X10e3/UL (159-386 X10e3/UL) *MPV7.8 FL (7.4-10.4 FL) AUTOMATED DIFFPERFORMED SEGS88.1 % *LYMPHOCYTES4.8 % *MONOCYTES6.2 % *EOSINOPHILS0.5 % *BASOPHILS0.4 % *ABSOLUTE NEUTROPHILS6.70 X10e3/UL (1.80-7.80 X10e3/UL) *ABSOLUTE LYMPHOCYTES0.40 X10e3/UL L (1.00-3.00 X10e3/UL) *ABSOLUTE MONOCYTES0.50 X10e3/UL (0.30-1.00 X10e3/UL) *ABSOLUTE EOSINOPHILS0.00 X10e3/UL (0.00-0.50 X10e3/UL) *ABSOLUTE BASOPHILS0.00 X10e3/UL (0.00-0.20 X10e3/UL)Urinalysis from 12/17/2015 10 :10 AM*URINE COLORYELLOW (STRAW/YELL/DK YELL ) *URINE APPEARANCESL CLOUDY A (CLEAR ) URINE PH7.0 (5.0-8.0 ) URINE SPECIFIC GRAVITY1.020 (<=1.005->=1.030 ) *URINE QPEYIXU152 MG/DL A (NEGATIVE MG/DL) *URINE BILIRUBINSMALL A (NEGATIVE ) *URINE KETONESTRACE MG/DL A (NEGATIVE MG/DL) *URINE BLOODSMALL A (NEGATIVE ) *URINE VVVCVJA343 MG/DL A (NEGATIVE MG/DL) *URINE UROBILINOGEN0.2 EU/DL (0.2-1.0 EU/DL) *URINE NITRITESNEGATIVE (NEGATIVE ) *URINE LEUKOCYTESNEGATIVE (NEGATIVE ) *MICROSCOPIC EXAM PERFORMEDPERFORMED *WBC URINE1-5 /HPF (0-5 /HPF) *RBC URINE1-5 /HPF A (0-1 /HPF) *MUCOUS THREADSMANY /LPF A (NEGATIVE /LPF) *HYALINE CASTS5-10 /LPF A (0 /LPF) *AMORP. PHOS CRYSMODERATE /HPF (NEGATIVE /HPF)Coagulation from 12/17/2015 9:59 AM* PROTHROMBIN TIME35.1 SECONDS H (9.4-11.5 SECONDS) *INR3.4 H (0.9-1.1 )CT Scan from 12/17/2015 10:25 AMCT CEREBRAL W/O CONTRASTHistory: FALL / SYNCOPE . Lung carcinoma. Priors: None. Findings: Ventricles and Extra axial spaces: Normal in size and morphology for the patient's age. Hemorrhage: None. Cerebral parenchyma: Normal. Mass effect/midline shift: None. Brainstem/Cerebellum: Normal. Calvarium: Normal. Visualized Paranasal sinuses/Mastoids: Clear. Impression: Unremarkable CT scan of the head. Electronically signed by: Otilio Bateman MD Dictated: 12/17/2015 10:39 CT SPINE CERVICAL W/O CONTRASTHistory: FALL / SYNCOPE . Priors: None. Findings: Cervical alignment is within normal limits. There is no acute fracture. There is mild focal disc space narrowing C5-6 and C6 with generalized disc bulging osteophytosis. No focal disc protrusions or significant central spinal stenosis is identified. The soft tissues are unremarkable. The lung apices are unremarkable. Impression: Mild cervical spondylosis without acute fracture. Electronically signed by: Otilio Bateman MD Dictated: 12/17/2015 10:40 Problems Encounter Diagnosis No relevant problems exist. Additional Problems Acute Pain Comment:Problem resolved by [facility] Workflow upon Discharge, Status: Resolved.Acute Pain Comment:Problem resolved by [facility] Workflow upon Discharge , Status:Resolved.Cellulitis of Trunk Comment:Problem resolved by [facility] Workflow upon Discharge, Status:Resolved.Deep Venous Thrombosis Comment:Problem resolved by [facility] Workflow upon Discharge, Status:Resolved.Fall Risk Comment: Problem resolved by [facility] Workflow upon Discharge, Status:Resolved.Fall Risk Status:Active.History of Deep Vein Thrombosis Status:Active.History of Pulmonary Embolus Status:Active.Infection Risk Comment:Problem resolved by [facility] Workflow upon Discharge, Status:Resolved.Infection Risk Status: Active.Mobility Impairment Comment:Problem resolved by [facility] Workflow upon Discharge, Status:Resolved.Mobility Impairment Status:Active.Non-Small Cell Lung Cancer Comment:Problem resolved by [facility] Workflow upon Discharge, Status: Resolved.Non-Small Cell Lung Cancer Status:Active.Nutritional Deficiency Status: Active.Skin Integrity Impairment Risk Status:Active.Supraventricular Tachycardia Status:Active.Tobacco Use Comment:Problem resolved by [facility] Workflow upon Discharge, Status:Resolved. [...]
--- OUTSIDE RECORDS SUMMARY | 2017-03-10 23:39 | External Medical Summary | Summary of Care ---
:1960 Author Name Jcarlos Shelton FACP,, F Tristan Address [address], [place] [id number] Care Team Providers Name Role Phone Verify PCP Primary Care Provider Unavailable Functional Status Functional Status Health Issues Name Dates Details Functional status health issues are not documented Status: Cognitive Status Health Issues Name Dates Details Cognitive status health issues are not documented Status: Problems Name Dates Details Lung cancer (162.9, C34.90) Status: Active Pneumonia (486, J18.9) Status: Active Cellulitis (682.9, L03.90) Status: Active Medications Name Dates Details Medication not documented Allergies and Adverse Reactions Name Dates Details Allergy history not documented Status: Procedures Procedure Dates Details Procedures not documented Immunization Name Dates Details Immunizations not documented Social History Smoking StatusUnknown if ever smoked Vital Signs Date Test Result Details No Known Vitals to report Results Date Description Value Details Results not documented Plan of Care Planned Observations Name Dates Details Planned Goals not documented Goal Instructions Instructions not documented Encounters No Encounter data documented On Encounter Diagnosis: Problem not documented
--- OUTSIDE RECORDS SUMMARY | 2017-03-10 23:39 | External Medical Summary | Summary of Care ---
[...] Pendin21-Feb-2016 CBC w/ Auto Diff 7150 Ordered: 22-Feb-2016 CBC w/ Auto Diff 7150 Ordered: 22-Feb-2016 MAGNESIUM 1260 Ordered: 22-Feb-2016 CBC w/ Auto Diff 7150 Ordered: 22-Feb-2016 MAGNESIUM 1260 Ordered: 22-Feb-2016 CBC w/ Auto Diff 7150 Ordered: 22-Feb-2016 Comprehensive Metabolic Panel 1212 Ordered: 22-Feb-2016 MAGNESIUM 1260 Ordered: 22-Feb-2016 CBC w/ Auto Diff 7150 Ordered: 01-Feb-2016 Immunization Name Dates Details Immunizations not documented Social History Smoking Status Name Dates Details Unknown if ever smoked Vital Signs Date Test Result Details 21-Feb-2016 10:08 BP Systolic 100 mm[Hg] Status: Comments: Location: ; Position: BP Diastolic 62 mm[Hg] Status: Comments: Location: ; Position: Heart Rate 67 /min Status: Comments: Location: ; Weight 144 lb Status: Physical Findings 100 Status: Comments: O2 Saturation Body Mass Index Calculated 19.53 kg/m2 Status: Body Surface Area Calculated 1.85 m2 Status: 01-Feb-2016 15:40 BP Systolic 87 mm[Hg] Status: [...] >60 ml/min Range: >60 EST GFR, NON-AFR ARMENIAN >60 ml/min Range: >60 Comments: EST GFR [...] WBC PLATELET Adequate Range: Adequate ANISO Mod Plan of Care Name Dates Details Planned Observations CBC w/ Auto Diff 7150 On 28-Feb-2016 Intent CBC w/ Auto Diff 7150 On 01-Mar-2016 Intent MAGNESIUM 1260 On 01-Mar-2016 Intent CBC w/ Auto Diff 7150 On 08-Mar-2016 Intent MAGNESIUM 1260 On 08-Mar-2016 Intent CBC w/ Auto Diff 7150 On 13-Mar-2016 Intent Comprehensive Metabolic Panel 1212 On 13-Mar-2016 Intent MAGNESIUM 1260 On 13-Mar-2016 Intent Planned Goals not documented Planned Encounters Appointment; Provider: Poornima العلي M.D. On 19-Feb-2017 10:00 Appointment; Provider: Tristan Garber M.D.|FACP|M.DShirley,FACP|MShirleyDShirley,FACP, On Feb-2016 14:15 Appointment; Provider: Sarkis Woods M.D. On 29-Feb-2016 09:30 Instructions Name Dates Details Instructions not documented Encounters Appointment; Poornima العلي M.D. On 21-Feb-2016 Encounter [...]
--- OUTSIDE RECORDS SUMMARY | 2017-03-10 23:39 | External Medical Summary | Summary of Care ---
[...] (Allergy) Status: Active Procedures Procedure Dates Details MAGNESIUM 1260 Ordered: 11-Jan-2016 CBC w/ Auto [...] m2 Status: Results Date Description Value Details 28-Dec-2015 09:30 Comprehensive Metabolic Panel 1212 SODIUM 138 [...] >60 ml/min Range: >60 EST GFR, NON-AFR [place]OREAN >60 ml/min Range: >60 Comments: EST GFR [...] >60 ml/min Range: >60 EST GFR, NON-AFR [place]ORE[place] >60 ml/min Range: >60 Comments: EST GFR [...] Adequate ANISO Mod HYPOCHRO Slight HYPERSEG Present Plan of Care Name Dates Details Planned Observations MAGNESIUM 1260 On 31-Jan-2016 Intent CBC w/ Auto Diff 7150 On 31-Jan-2016 Intent Planned Goals not documented Planned Encounters Appointment; Provider: Tristan Garber M.D.|WILLIAN DORSEY FACP, On Jan-2016 16:00 Interventions Provided Labs/Procedures/ImagingCBC w/ Auto Diff 7150; Done: Jan 24 2016 9:31AM Instructions Name Dates Details Instructions not documented Encounters Appointment; Tristan Garber M.D.|WILLIAN,HEBERT DORSEY, On 11-Jan-2016 Encounter Diagnosis: Problem not documented 10:15 Appointment; Tristan Garber M.D.|WILLIAN,HEBERT DORSEY, On 28-Dec-2015 Encounter Diagnosis: Problem not documented 09:15 Appointment; Tristan Garber M.D.|WILLIAN,HEBERT DORSEY, On 13-Dec-2015 Encounter Diagnosis: Problem not documented 13:15 Appointment; Tristan Garber M.D.|WILLIAN,HEBERT|Cat,HEBERT, On Encounter Diagnosis: Problem not documented 09:00 Appointment; Tristan Garber M.D.|WILLIAN,HEBERT|Cat,HEBERT, On Encounter Diagnosis: Problem not documented 11:00"
--- OUTSIDE RECORDS SUMMARY | 2017-03-10 23:39 | External Medical Summary | Summary of Care ---
[...] Creation Of Pericardial Window MAGNESIUM 1260 Ordered: 24-Apr-2016 CBC w/ Auto [...] m2 Status: Results Date Description Value Details 03-Apr-2016 15:30 CBC w/ Auto Diff 7150 [...] >60 ml/min Range: >60 EST GFR, NON-AFR ICELANDIC >60 ml/min Range: >60 Comments: EST GFR [...] Date: 04/20/2016 09:31 CONTRAST XC CHEST/AB/PEL 45 CA 24-Apr-2016 13:01 CBC w/ Auto Diff 7150 [...] >60 ml/min Range: >60 EST GFR, NON-AFR ICELANDIC >60 ml/min Range: >60 Comments: EST GFR [...] On 19-Feb-2017 10:00 Appointment; Provider: Tristan Garber M.D.|FACP|MTreva,FACPHEBERT Chappell, On Apr-2016 11:00 Instructions Name Dates Details Instructions not documented Encounters Appointment; Tristan Garber M.D.|FACP|M.DShirley,FACP|MTreva,FACP, On 24-Apr-2016 Encounter Diagnosis: Problem not documented 13:00 Appointment; Tristan Garber M.D.|FACP|M.DShirley,FACP|MTreva,FACP, On 03-Apr-2016 Encounter Diagnosis: Problem not documented 16:00 Appointment; Tristan Garber M.D.|FACP|M.DShirley,FACP|MTreva,FACP, On 20-Mar-2016 Encounter Diagnosis: Problem not documented 16:00 Appointment; Tristan Garber M.D.|FACP|M.DShirley,FACP|MTreva,FACP, On 13-Mar-2016 Encounter Diagnosis: Problem not documented 09:30 Appointment; Sarkis Woods M.D. On 08-Mar-2016 Encounter Diagnosis: Problem not documented 09:00 Appointment; Tristan Garber M.D.|FACP|M.DShirley,FACP|MShirleyDShirley,FACP, On 22-Feb-2016 Encounter Diagnosis: Problem not documented 14:15 Appointment; Poornima العلي M.D. On 21-Feb-2016 Encounter Diagnosis: Problem not documented 10:15 Appointment; Tristan Garber M.D.|FACP|M.DShirley,FACP|MTreva,FACP, On 01-Feb-2016 Encounter Diagnosis: Problem not documented 16:00 Appointment; Tristan Garber M.D.|FACP|M.DShirley,FACP|MTreva,FACP, On 11-Jan-2016 Encounter Diagnosis: Problem not documented 10:15 Appointment; Tristan Garber M.D.|FACP|Cat,KELLIEP|Cat,HEBERT, On 28-Dec-2015 Encounter Diagnosis: Problem not documented 09:15 Appointment; Tristan Garber M.D.|FACP|Cat,FACP|Cat,HEBERT, On 13-Dec-2015 Encounter Diagnosis: Problem not documented 13:15 Appointment; Tristan Garber M.D.|FACP|Cat,FACP|Cat,HEBERT, On Encounter Diagnosis: Problem not documented 09:00 Appointment; Tristan Garber M.D.|FACP|Cat,KELLIEP|Cat,HEBERT, On Encounter Diagnosis: Problem not documented 11:00"
--- OUTSIDE RECORDS SUMMARY | 2017-03-10 23:40 | External Medical Summary | Summary of Care ---
:1960 Author Name Chau Shelton, Claudio Address Unavailable Unavailable , Care Team Providers Name Role Phone Chau Shelton, Claudio Unavailable Unavailable Jcarlos Shelton, KELLIEP, ,, F [...] Active Voice hoarseness (784.42, R49.0) Status: Active Medications Name Dates Details Metoprolol [...] Details History of Creation Of Pericardial Window Upper Endoscopy ( EGD) Ordered: 13-Jul-2016 Colonoscopy- Screening or Dx Ordered: 13-Jul-2016 CBC w/ Auto Diff 7150 Ordered: 06-Jul-2016 [...] PROTIME 13.1 secs Range: 12.0-14.9 INR 1.03 Plan of Care Name Dates Details Planned Observations Planned Goals not documented Planned Encounters Appointment; Provider: Poornima العلي M.D. On 19-Feb-2017 10:00 Appointment; Provider: Tristan Garber M.D.|FACP|MTreva,FACP|HEBERT Shelton, On Jul-2016 11:00 Appointment; Provider: Schedule Radiology On 24-Jul-2016 08:00 Interventions Provided Medication ChangesSuprep Bowel Prep Oral Solution - CompletedLabs/Procedures/ ImagingColonoscopy- Screening or Dx; To be Done: 13 Jul 2016Upper Endoscopy ( EGD); To be Done: 13 Jul 2016 Instructions Name Dates Details Instructions not documented Encounters Appointment; Caridad Kuhn On 13-Jul-2016 Encounter Diagnosis: Problem not documented 11:00 Appointment; Poornima العلي M.D. On 12-Jul-2016 Encounter Diagnosis: Problem not documented 11:30 Appointment; Tristan Garber M.D.|FACP|M.DShirley,FACP|MTreva,FACP, On 06-Jul-2016 Encounter Diagnosis: Problem not documented 15:15 Appointment; Tristan Garber M.D.|FACP|M.DShirley,FACP|MTreva,FACP, On 12-Jun-2016 Encounter Diagnosis: Problem not documented 15:00 Appointment; Tristan Garber M.D.|FACP|M.DShirley,FACP|M.DShirley,FACP, On 16-May-2016 Encounter Diagnosis: Problem not documented 11:00 Appointment; Tristan Garber M.D.|FACP|M.D.,FACP|M.DShirley,FACP, On 01-May-2016 Encounter Diagnosis: Problem not documented 13:30 Appointment; Trsitan Garber M.D.|FACP|M.D.,FACP|M.DShilrey,FACP, On 24-Apr-2016 Encounter Diagnosis: Problem not documented [...] Problem not documented 16:00 Appointment; Tristan Garber M.D.|FACP|M.D.,FACP|MShirleyDShirley,FACP, On 11-Jan-2016 Encounter Diagnosis: Problem not documented 10:15 Appointment; Tristan Garber M.D.|FACP|M.D.,FACP|M.DShirley,FACP, On 28-Dec-2015 Encounter Diagnosis: Problem not documented 09:15 Appointment; Tristan Garber M.D.|FACP|M.D.,FACP|M.D.,FACP, On 13-Dec-2015 Encounter Diagnosis: Problem not documented 13:15 Appointment; Tristan Garber M.D.|FACP|M.D.,FACP|M.D.,FACP, On Encounter Diagnosis: Problem not documented 09:00 Appointment; Tristan Garber M.D.|FACP|M.D.,FACP|M.D.,FACP, On Encounter Diagnosis: Problem not documented 11:00"
--- OUTSIDE RECORDS SUMMARY | 2017-03-10 23:40 | External Medical Summary | Summary of Care ---
[...] Status: Active Pneumonia (486, J18.9) Status: Active Cancer of left lung (162.9, C34.92) Status: Active Pulmonary embolism (415.19, I26.99) Status: [...] TAKE 1 TABLET DAILY. Refills: 0 Estealex M.Janak., FACP, , , Tristan F Start [...] (Allergy) Status: Active Procedures Procedure Dates Details CBC w/ Auto Diff 7150 Ordered: 01-Feb-2016 MAGNESIUM 1260 Ordered: 01-Feb-2016 CBC w/ Auto Diff 7150 Ordered: 01-Feb-2016 MAGNESIUM 1260 Ordered: 01-Feb-2016 CBC w/ Auto Diff 7150 Ordered: 01-Feb-2016 CBC w/ Auto Diff 7150 [...] Body Surface Area Calculated 1.87 m2 Status: 11-Jan-2016 11:18 BP Systolic 89 mm[Hg] Status: [...] >60 ml/min Range: >60 EST GFR, NON-AFR SOMALI >60 ml/min Range: >60 Comments: EST GFR [...] 02/04/2016 10:20 CONTRAST XC CHEST/AB 45 MIN [place] Plan of Care Name Dates Details Planned Observations CBC w/ Auto Diff 7150 On 03-Feb-2016 Intent CBC w/ Auto Diff 7150 On 14-Feb-2016 Intent MAGNESIUM 1260 On 14-Feb-2016 Intent CBC w/ Auto Diff 7150 On 17-Feb-2016 Intent CBC w/ Auto Diff 7150 On 21-Feb-2016 Intent Comprehensive Metabolic Panel 1212 On 21-Feb-2016 Intent MAGNESIUM 1260 On 21-Feb-2016 Intent CBC w/ Auto Diff 7150 On 24-Feb-2016 Intent Planned Goals not documented Planned Encounters Appointment; Provider: Tristan Garber M.D.|WILLIAN,HEBERT DORSEY, On Feb-2016 14:15 Appointment; Provider: Schedule Radiology On 04-Feb-2016 10:30 Appointment; Provider: Schedule Radiology On 04-Feb-2016 10:30 Interventions Provided Labs/Procedures/ImagingMAGNESIUM 1260; To be Done: 01 Feb 2016 Instructions Name Dates Details Instructions not documented Encounters Appointment; Tristan Garber M.D.|WILLIAN,HEBERT DORSEY, On 11-Jan-2016 Encounter Diagnosis: Problem not documented 10:15 Appointment; Tristan Garber M.D.|ASHERD.,HEBERT|Cat,HEBERT, On 28-Dec-2015 Encounter Diagnosis: Problem not documented 09:15 Appointment; Tristan Garber M.D.|HEBERT|Cat,HEBERT|Cat,HEBERT, On 13-Dec-2015 Encounter Diagnosis: Problem not documented 13:15 Appointment; Tristan Garber M.D.|WILLIAN,HEBERT|Cat,HBEERT, On Encounter Diagnosis: Problem not documented 09:00 Appointment; Tristan Garber M.D.|WILLIAN,HEBERT|Cat,HEBERT, On Encounter Diagnosis: Problem not documented 11:00"
--- OUTSIDE RECORDS SUMMARY | 2017-03-10 23:40 | External Medical Summary | Summary of Care ---
[...] 13-Mar-2016 Comprehensive Metabolic Panel 1212 Ordered: 13-Mar-2016 CBC w/ Auto Diff 7150 Ordered: 30-Mar-2016 Immunization Name Dates Details Immunizations not documented [...] m2 Status: Results Date Description Value Details 01-Mar-2016 15:29 CBC w/ Auto Diff 7150 [...] >60 ml/min Range: >60 EST GFR, NON-AFR [place] >60 ml/min Range: >60 Comments: EST GFR [...] Items were attached to this order: PT, MICROSTRATEGY DEVELOPER Charge MAGNESIUM 1.9 mg/dL Range: 1.8-2.4 14:23 PROTIME PANEL 7000 Comments: Items were attached to this order: PT, MICROSTRATEGY DEVELOPER Charge PROTIME 35.2 secs (Above high threshold) Range: 12.0-14.9 INR 3.47 14:23 Manual Differential 7400 Comments: Items were attached to this order: PT, MICROSTRATEGY DEVELOPER Charge SEGS 85 % (Above high threshold) [...] 15:08 XF PICC INSERTION OVER AGE 5 Plan of Care Name Dates Details Planned Observations Planned Goals not documented Planned Encounters Appointment; Provider: Poornima العلي M.D. On 19-Feb-2017 10:00 Appointment; Provider: Tristan Garber M.D.|WILLIAN,HEBERT DORSEY, On Mar-2016 13:30 Interventions Provided Labs/Procedures/ImagingCBC w/ Auto Diff 7150; To be Done: 30 Mar 2016 Instructions Name Dates Details Instructions not documented Encounters Appointment; Tristan Garber M.D.|WILLIAN,HEBERT DORSEY, On 20-Mar-2016 Encounter Diagnosis: Problem not documented 16:00 Appointment; Tristan Garber M.D.|WILLIAN,HEBERT DORSEY, On 13-Mar-2016 Encounter Diagnosis: Problem not documented [...]
--- OUTSIDE RECORDS SUMMARY | 2017-03-10 23:40 | External Medical Summary ---
:1960 Author Name GENERATED, SYSTEM Care Team Providers Name Role Phone MD MEDINA CLARICE Primary Care Provider [phone] Reason For Visit Reason for Visit from 02/19/2016 5:36 PM:Pt Stated Reason for Adm : symptomatic anemia Chief Complaint SYNCROMATIC ANEMIA Social History Social History from 02/20/2016 9:20 AM:Tobacco Use? : Current Everyday SmokerSocial History from 02/19/2016 5:36 PM:Tobacco Use? : Current Everyday Smoker Functional Status Functional Status from 02/20/2016 7:45 AM:LOC : AlertOriented To : Person,Place, Time,EventWeight Bearing Status : FullAssist Level : Independent# Assists : IndependentFunctional Status from 02/19/2016 8:09 PM:LOC : AlertOriented To : Person,Place,Time,EventWeight Bearing Status : FullAssist Level : Partial# Assists : 1Functional Status from 02/19/2016 5:36 PM:LOC : AlertOriented To : Person,Place,Time,EventWeight Bearing Status : FullAssist Level : Independent# Assists : 1 Vital Signs Hospital Vital Signs from 02/20/2016 7:09 AM:Height : 5/11 ft,inTemperature : 98.0 FPulse : 58Respirations : 16BP : 112/73Hospital Vital Signs from 02/19/2016 10:18 PM:Height : 5/11 ft,inTemperature : 97.2 FPulse : 56Respirations : 18BP : 109/70Hospital Vital Signs from 02/19/2016 9:35 PM:Height : 5/11 ft, inTemperature : 97.9 FPulse : 59Respirations : 18BP : 107/64Hospital Vital Signs from 02/19/2016 8:17 PM:Height : 5/11 ft,inTemperature : 96 FPulse : 64Respirations : 16BP : 112/75Hospital Vital Signs from 02/19/2016 7:30 PM: Height : 11 ft,inTemperature : 97 FPulse : 61Respirations : 18BP : 108/ 61Hospital Vital Signs from 02/19/2016 7:14 PM:Height : 511 ft,inTemperature : 97.7 FPulse : 66Respirations : 18BP : 103/63Hospital Vital Signs from 02/19/2016 5:36 PM:Weight : 66.3/ kgHeight : 08/24 ft,in Results Chemistry from 02/20/2016 5:05 [id number] MMOL/L (136-145 MMOL/L) POTASSIUM4.0 MMOL/L (3.5-5.1 MMOL/L) [id number] MMOL/L (98-107 MMOL/L) LAE446.1 MMOL/L (21.0-32.0 MMOL/L) *ANION GAP8.9 MMOL/L (8.0-16.0 MMOL/L) BUN10 MG/DL (7-18 MG/DL) CREATININE0.57 MG/DL L (0.70-1.30 MG/DL) *BUN/CREATININE RATIO17.5 H (9.1-17.0 ) POHJWOG91 MG/DL (65-99 MG/DL) *GFR EST NON AFR BELGIAN>90 ML/MIN *GFR EST AFR AMER>90 ML/MIN CALCIUM8.9 MG/DL (8.5-10.1 MG/DL)Hematology from 02/20/2016 5:05 AMWBC7.3 X10e3/ UL (3.6-11.2 X10e3/UL) RBC3.43 X10e6/UL L (4.06-5.63 X10e6/UL) HEMOGLOBIN9.9 G/DL L (12.5-16.3 G/DL) ORCIWEJPUB69.4 % L (36.7-47.1 %) *MCV85.8 FL (80.0-100.0 FL) *MCH28.8 PG (27.0-33.0 PG) *MCHC33.5 G/DL (32.0-36.0 G/DL) *RDW20.3 % H (12.3-17.0 %) *RDWSD59.9 H (37.1-47.8 ) [id number] X10e3/UL L (159-386 X10e3/UL) *MPV7.7 FL (7.4-10.4 FL) *MANUAL DIFFPERFORMED SEGS92.0 % *BANDS2.0 % *LYMPHOCYTES4.0 % *MONOCYTES2.0 % *EOSINOPHILS0.0 % *BASOPHILS0.0 % *ABSOLUTE NEUTROPHILS6.86 X10e3/UL (1.80-7.80 X10e3/UL) *ABSOLUTE LYMPHOCYTES0.29 X10e3/UL L (1.00-3.00 X10e3/UL) *ABSOLUTE MONOCYTES0.15 X10e3/UL L (0.30-1.00 X10e3/UL) *ABSOLUTE EOSINOPHILS0.00 X10e3/UL (0.00-0.50 X10e3/UL) *ABSOLUTE BASOPHILS0.00 X10e3/UL (0.00-0.20 X10e3/UL) *POLYCHROMASIA2+ STOMATOCYTES1+ *TOXIC GRANULATION1+Coagulation from 02/20/2016 5:05 AM*PROTHROMBIN TIME19.8 SECONDS H (9.4-11.5 SECONDS) *INR1.9 H (0.9-1.1 ) Problems Encounter Diagnosis Acute Pain Status:Active.Anemia Status:Active.Fall Risk Status:Active.Infection Risk Status:Active.Paroxysmal Atrial Fibrillation Status:Active.Additional Problems Atrial Fibrillation Comment:Problem resolved by [facility] Workflow upon Discharge , Status:Resolved.Benign Essential Hypertension Comment:Problem resolved by [facility] Workflow upon Discharge, Status:Resolved.Cellulitis of Trunk Comment: Problem resolved by [facility] Workflow upon Discharge, Status:Resolved.Deep Venous Thrombosis Comment:Problem resolved by [facility] Workflow upon Discharge, Status:Resolved.Deep Venous Thrombosis of Upper Extremity Comment:Problem resolved by [facility] Workflow upon Discharge, Status:Resolved.History of Deep Vein Thrombosis Comment:Problem resolved by [facility] Workflow upon Discharge, Status:Resolved.History of Pulmonary Embolus Comment:Problem resolved by [facility] Workflow upon Discharge, Status:Resolved.Malignant Tumor of Lung Comment :Problem resolved by [facility] Workflow upon Discharge, Status:Resolved.Mobility [...] resolved by [facility] Workflow upon Discharge, Status: Resolved.Thrombocytosis Comment:Problem resolved by [facility] Workflow upon Discharge, Status:Resolved.Tobacco Use Comment:Problem resolved by [facility] Workflow upon Discharge, Status:Resolved. Encounters Encounter Diagnosis Acute Pain Status:Active.Anemia Status:Active.Fall Risk Status:Active.Infection Risk Status:Active.Paroxysmal Atrial Fibrillation Status:Active. Plan of Care Treatment Plan from 02/20/2016 9:03 AM:Care Management Note : Patient is outpatient observation. He presented to the ED due to shortness ofbreath with Hgb of 8.7. He has received 2 units of PRBC's. Hgb is 9.9 and he is being discharged today. Appriopriate for outpatient observation. Procedures Completed Procedure Code: [id number] Procedure Name: not valued, on 12/19/2015 10: 46 AMCompleted Procedure Code: [id number] Procedure Name: not valued, on 12/19/2015 10:38 AMCompleted Procedure Code: [id number] Procedure Name: not valued, on 2015 12:00 AMCompleted Procedure Code: [id number] Procedure Name: not valued, on 12:00 AM Immunizations No immunizations administered or ordered. Hospital Course Hospital Discharge Instructions How to care for yourself at home from 02/20/2016 9:20 AM:Discharge Activity : Activity as tolerated,May Shower,Do not [...] tomorrow morning)Specific Discharge Teaching Instructions provided: : NoDischarge on Warfarin : YesAppointment for INR : Sunday Allergies, Adverse Reactions, Alerts Penicillins causes Severe Hives. Onset 1967.No Latex Allergy.No IV Contrast Allergy.No Known Food Allergies. Medication It is the responsibility of the patient or patient customer retention representative to confirm the list of medicationswith either the patient's personal care provider or the patient's follow-up care provider to ensure the patient has an appropriate list of medications to take at home. Discharge medicationsContinued medicationsfoLIC Acid 1 mg Tablet, Ordered By: MARY TRAYLOR Directions: 1 tablet oral daily metoprolol tartrate 50 mg Tablet, Ordered By: MARY TRAYLOR Directions: 1 tablet oral daily every morning ondansetron 8 mg tablet,disintegrating, Ordered By: MARY TRAYLOR Directions: 1 tablet oral every six hours PRN nausea or vomiting prochlorperazine maleate 10 mg Tablet, Ordered By: MARY TRAYLOR Directions: 1 tablet oral every six hours PRN nausea or vomiting warfarin (Coumadin) 7.5 mg Tablet, Ordered By: MARY TRAYLOR Directions: 1 tablet oral daily Stopped medicationsNone
--- OUTSIDE RECORDS SUMMARY | 2017-03-10 23:40 | External Medical Summary | Summary of Care ---
[...] Details History of Creation Of Pericardial Window Procedures not documented Immunization Name Dates Details [...] Body Surface Area Calculated 1.86 m2 Status: Results Date Description Value Details 15-May-2016 14:53 CBC w/ Auto Diff 7150 [...] >60 ml/min Range: >60 EST GFR, NON-AFR [place]OU[place] >60 ml/min Range: >60 Comments: EST GFR [...] Range: 0.0-0.7 BASO 0.0 K/uL Range: 0.0-0.2 12:05 MAGNESIUM 1260 MAGNESIUM 1.9 mg/dL Range: 1.8-2.4 29-May-2016 10:09 CBC w/ Auto Diff 7150 Comments: Manual differential indicated. WBC 8.2 K/uL Range: 4.5-11.0 RBC 4.32 mil/uL Range: 4.20-5.40 HGB 12.8 g/dL (Below low threshold) Range: 14.0-18.0 HCT 39.2 % (Below low threshold) Range: 42.0-53.0 MCV 90.6 fL Range: 80.0-99.0 MCH 29.7 pg Range: 27.3-32.5 MCHC 32.7 % Range: 32.0-36.0 RDW 17.5 % (Above high threshold) Range: 11.6-14.8 PLATELETS 317 K/uL Range: 150-400 MPV 6.1 fL Range: 6.0-11.0 10:12 MAGNESIUM 1260 MAGNESIUM 1.8 mg/dL Range: 1.8-2.4 10:31 Manual Differential 7400 SEGS 83 % (Above high threshold) Range: 37-80 BANDS 0 % Range: 0-7 LYMPH 10 % (Below low threshold) Range: 13-50 MONO 6 % Range: 0-12 EOSIN 1 % Range: 0-7 BASO 0 % Range: 0-3 CODY LYMPH 0 % Range: 0-0 META 0 % Range: 0-0 MYELO 0 % Range: 0-0 PRO 0 % Range: 0-0 BLAST 0 % Range: 0-0 NUC RBC 0 /100 WBC Range: 0-0 SMUDGE 0 /100 WBC PLATELET Adequate Range: Adequate ANISO Slight 05-Jun-2016 09:46 CBC w/ Auto Diff 7150 Comments: Manual differential indicated. WBC 10.5 K/uL Range: 4.5-11.0 RBC 4.40 mil/uL Range: 4.20-5.40 HGB 13.3 g/dL (Below low threshold) Range: 14.0-18.0 HCT 41.2 % (Below low threshold) Range: 42.0-53.0 MCV 93.6 fL Range: 80.0-99.0 MCH 30.3 pg Range: 27.3-32.5 MCHC 32.4 % Range: 32.0-36.0 RDW 18.1 % (Above high threshold) Range: 11.6-14.8 PLATELETS 300 K/uL Range: 150-400 MPV 7.0 fL Range: 6.0-11.0 10:08 MAGNESIUM 1260 MAGNESIUM 1.9 mg/dL Range: 1.8-2.4 10:10 Manual Differential 7400 SEGS 84 % (Above high threshold) Range: 37-80 BANDS 0 % Range: 0-7 LYMPH 5 % (Below low threshold) Range: 13-50 MONO 7 % Range: 0-12 EOSIN 3 % Range: 0-7 BASO 0 % Range: 0-3 CODY LYMPH 0 % Range: 0-0 META 0 % Range: 0-0 MYELO 1 % (Above high threshold) Range: 0-0 PRO 0 % Range: 0-0 BLAST 0 % Range: 0-0 NUC RBC 0 /100 WBC Range: 0-0 SMUDGE 0 /100 WBC PLATELET Adequate Range: Adequate ANISO Slight MACROCYT Slight 12-Jun-2016 10:04 CBC w/ Auto Diff 7150 [...] >60 ml/min Range: >60 EST GFR, NON-AFR [place]OU[place] A[place] >60 ml/min Range: >60 Comments: EST GFR [...] 1.0-1.8 threshold) CALCIUM 8.6 mg/dL Range: 8.5-10.1 Plan of Care Name Dates Details Planned Observations Planned Goals not documented Planned Encounters Appointment; Provider: Poornima العلي M.D. On 19-Feb-2017 10:00 Appointment; Provider: Tristan Garber M.D.|WILLIAN,HEBERT|Cat,HEBERT, On May-2016 15:00 Interventions Provided Medication ChangesAzithromycin 250 MG Oral Tablet - RenewLabs/Procedures/Imaging CBC w/ Auto Diff 7150; Done: May 22 2016 11:25AMCBC w/ Auto Diff 7150; Done: May 29 2016 9:35AMCBC w/ Auto Diff 7150; Done: Jun 05 2016 9:20AMCBC w/ Auto Diff 7150; Done: Feb 27 2017 9:45AMComprehensive Metabolic Panel 1212; Done: Jun 12 2016 9:45AMMAGNESIUM 1260; Done: May 22 2016 11:25AMMAGNESIUM 1260; Done : May 29 2016 9:35AMMAGNESIUM 1260; Done: Jun 05 2016 9:20AMMAGNESIUM 1260; Done: Jun 12 2016 9:45AM Instructions Name Dates Details Instructions not documented Encounters Appointment; Tristan Garber M.D.|FACP|M.DShirley,FACP|Cat,FACP, On 01-May-2016 Encounter Diagnosis: Problem not documented 13:30 Appointment; Tristan Garber M.D.|FACP|M.DShirley,FACP|MTreva,FACP, On 24-Apr-2016 Encounter [...] documented 09:00 Appointment; Tristan Garber M.D.|FACP|M.DShirley,FACP|MTreva,FACP, On 22-Feb-2016 Encounter Diagnosis: Problem not documented 14:15 Appointment; Poornima العلي M.D. On 21-Feb-2016 Encounter Diagnosis: Problem not documented 10:15 Appointment; Tristan Garber M.D.|FACP|M.DShirley,FACP|MTreva,FACP, On 01-Feb-2016 Encounter Diagnosis: Problem not documented 16:00 Appointment; Tristan Garber M.D.|FACP|M.DShirley,FACP|MTreva,FACP, On 11-Jan-2016 Encounter Diagnosis: Problem not documented 10:15 Appointment; Tristan Garber M.D.|HEBERT|Cat,HEBERT|Cat,HEBERT, On 28-Dec-2015 Encounter Diagnosis: Problem not documented 09:15 Appointment; Tristan Garber M.D.|HEBERT|Cat,HEBERT|Cat,HEBERT, On 13-Dec-2015 Encounter Diagnosis: Problem not documented 13:15 Appointment; Tristan Garber M.D.|HEBERT|Cat,HEBERT|Cat,HEBERT, On Encounter Diagnosis: Problem not documented 09:00 Appointment; Tristan Garber M.D.|WILLIAN,HEBERT|Cat,HEBERT, On Encounter Diagnosis: Problem not documented 11:00"
[2017-03-10] MEDS ORDERED: MORPHINE SULFATE 4mg INJECTION IVP ONE (23:41)
[2017-03-10] MEDS ORDERED: ONDANSETRON 4 MG/2 ML INJECTION IVP ONE (23:41)
--- OUTSIDE RECORDS SUMMARY | 2017-03-10 23:41 | External Medical Summary | Summary of Care ---
:1960 Author Name Claudio Ritchie M.D. Address Unavailable Unavailable , Care Team Providers Name Role Phone Jcarlos Shelton, HEBERT, ,, F Tristan Unavailable Unavailable [facility] Unavailable Unavailable Malu Rosales Unavailable Unavailable Unavailable [...] Range: >60 EST GFR, NON-AFR CITIZEN [place] >60 ml/min Range: >60 Comments: EST GFR [...] On 19-Feb-2017 10:00 Appointment; Provider: Tristan Garber M.D.|FACP|MShirleyDShirley,FACP|Cat,FACP, On Jul-2016 11:00 Appointment; Provider: Schedule Radiology On 24-Jul-2016 08:00 Interventions Provided Labs/Procedures/ImagingPROTIME PANEL 7000; Done: Jul 13 2016 11:34AM Instructions Name Dates Details Instructions not documented Encounters Appointment; Poornima العلي M.D. On 12-Jul-2016 Encounter [...] Problem not documented 09:00 Appointment; Tristan Garber M.D.|FACP|M.DShirley,FACP|Cat,FACP, On 22-Feb-2016 Encounter Diagnosis: Problem not documented 14:15 Appointment; Poornima العلي M.D. On 21-Feb-2016 Encounter Diagnosis: Problem not documented 10:15 Appointment; Tristan Garber M.D.|FACP|M.DShirley,FACP|MTreva,FACP, On 01-Feb-2016 Encounter Diagnosis: Problem not documented 16:00 Appointment; Tristan Garber M.D.|FACP|MShirleyDShirley,FACP|Cat,FACP, On 11-Jan-2016 Encounter Diagnosis: Problem not documented 10:15 Appointment; Tristan Garber M.D.|FACP|M.DShirley,FACP|Cat,FACP, On 28-Dec-2015 Encounter Diagnosis: Problem not documented 09:15 Appointment; Tristan Garber M.D.|FACP|M.DShirley,FACP|MTreva,FACP, On 13-Dec-2015 Encounter Diagnosis: Problem not documented 13:15 Appointment; Tristan Garber M.D.|FACP|M.DShirley,FACP|MTreva,FACP, On Encounter Diagnosis: Problem not documented 09:00 Appointment; Tristan Garber M.D.|FACP|M.DShirley,FACP|MTreva,FACP, On Encounter Diagnosis: Problem not documented 11:00"
--- OUTSIDE RECORDS SUMMARY | 2017-03-10 23:41 | External Medical Summary | Summary of Care ---
[...] Pendin21-Feb-2016 CBC w/ Auto Diff 7150 Ordered: 13-Mar-2016 MAGNESIUM 1260 Ordered: 13-Mar-2016 MAGNESIUM 1260 Ordered: 13-Mar-2016 CBC w/ Auto Diff 7150 Ordered: 13-Mar-2016 MAGNESIUM 1260 Ordered: 13-Mar-2016 CBC w/ Auto [...] Location: ; Position: Temperature 97.9 f Status: Heart Rate 101 /min Status: Comments: Location: ; Weight 133.6 lb Status: Body Mass Index Calculated 18.12 kg/m2 Status: Body Surface Area Calculated 1.79 m2 Status: 22-Feb-2016 16:49 BP Systolic 98 mm[Hg] Status: [...] m2 Status: Results Date Description Value Details 17-Feb-2016 07:52 CBC w/ Auto Diff 7150 [...] >60 ml/min Range: >60 EST GFR, NON-AFR NEPALESE >60 ml/min Range: >60 Comments: EST GFR [...] Diff 7150 Comments: Critical result called to [facility] by Sigrid Taylor on 02/24/2016 at [...] >60 ml/min Range: >60 EST GFR, NON-AFR NEPALESE >60 ml/min Range: >60 Comments: EST GFR [...] Observations CBC w/ Auto Diff 7150 On 20-Mar-2016 Intent MAGNESIUM 1260 On 20-Mar-2016 Intent MAGNESIUM 1260 On 27-Mar-2016 Intent CBC w/ Auto Diff 7150 On 27-Mar-2016 Intent MAGNESIUM 1260 On 03-Apr-2016 Intent CBC w/ Auto Diff 7150 On 03-Apr-2016 Intent Comprehensive Metabolic Panel 1212 On 03-Apr-2016 Intent Planned Goals not documented Planned Encounters Appointment; Provider: Poornima العلي M.D. On 19-Feb-2017 10:00 Appointment; Provider: Tristan Garber M.D.|FACP|MShirleyDShirley,FACP|Cat,FACP, On Mar-2016 13:30 Instructions Name Dates Details Instructions not documented [...] Diagnosis: Problem not documented 10:15 Appointment; Tristan Garbre M.D.|FACP|M.DShirley,FACP|MTreva,FACP, On 28-Dec-2015 Encounter Diagnosis: Problem not documented 09:15 Appointment; Tristan Garber M.D.|FACP|M.DShirley,FACP|MTreva,FACP, On 13-Dec-2015 Encounter Diagnosis: Problem not documented 13:15 Appointment; Tristan Garber M.D.|FACP|M.D.,FACP|MTreva,FACP, On Encounter Diagnosis: Problem not documented 09:00 Appointment; Tristan Garber M.D.|FACP|M.DShirley,FACP|MShirleyDShirley,FACP, On Encounter Diagnosis: Problem not documented 11:00"
--- OUTSIDE RECORDS SUMMARY | 2017-03-10 23:41 | External Medical Summary | Summary of Care ---
[...] Active Pulmonary embolism (415.19, I26.99) Status: Active Medications Name Dates Details Metoprolol [...] 13-Mar-2016 Comprehensive Metabolic Panel 1212 Ordered: 13-Mar-2016 PICC INSERTION OVER AGE 5 Ordered: 20-Mar-2016 Immunization Name Dates Details Immunizations not documented [...] m2 Status: Results Date Description Value Details 21-Feb-2016 10:01 ECG/ EKG (Specialists) Electro CardioGram [...] >60 ml/min Range: >60 EST GFR, NON-AFR BENINESE >60 ml/min Range: >60 Comments: EST GFR [...] Diff 7150 Comments: Critical result called to [facility] by Sigrid Taylor on 02/24/2016 [...] >60 ml/min Range: >60 EST GFR, NON-AFR BENINESE >60 ml/min Range: >60 Comments: EST GFR [...] Items were attached to this order: PT, SUPPLIER QUALITY MANAGER Charge MAGNESIUM 1.9 mg/dL Range: 1.8-2.4 14:23 PROTIME PANEL 7000 Comments: Items were attached to this order: PT, SUPPLIER QUALITY MANAGER Charge PROTIME 35.2 secs (Above high threshold) Range: 12.0-14.9 INR 3.47 14:23 Manual Differential 7400 Comments: Items were attached to this order: PT, SUPPLIER QUALITY MANAGER Charge SEGS 85 % (Above high threshold) [...] (Abnormal) Range: Adequate ANISO Mod POLYCHRO Slight Plan of Care Name Dates Details Planned Observations PICC INSERTION OVER AGE 5 On 27-Mar-2016 Intent Planned Goals not documented Planned Encounters Appointment; Provider: Poornima العلي M.D. On 19-Feb-2017 10:00 Appointment; Provider: Tristan Garber M.D.|WILLIAN,WILLIAN,HEBERT, On Mar-2016 13:30 Appointment; Provider: Schedule Radiology On 27-Mar-2016 15:00 Appointment; Provider: Schedule Radiology On 27-Mar-2016 15:00 Instructions Name Dates Details Instructions not documented Encounters Appointment; Tristan Garber M.D.|FACP|M.DShirley,FACP|MShirleyDShirley,FACP, On 13-Mar-2016 Encounter Diagnosis: Problem not documented [...]
--- OUTSIDE RECORDS SUMMARY | 2017-03-10 23:41 | External Medical Summary ---
:1960 Author Name GENERATED, SYSTEM Care Team Providers Name Role Phone MD CAROL, NADINE Primary Care Provider [phone] Reason For Visit Chief Complaint DIZZINESS/LIGHT HEADED Social History Functional Status Vital Signs Results [...] Plan of Care Procedures Completed Procedure Code: [id number] Procedure Name: not valued, on 12/19/2015 10: 46 AMCompleted Procedure Code: [id number] Procedure Name: not valued, on 12/19/2015 10:38 AMCompleted Procedure Code: [id number] Procedure Name: not valued, on 2015 12:00 AMCompleted Procedure Code: [id number] Procedure Name: not valued, on 12:00 AM Immunizations No immunizations administered or ordered. Hospital Course Hospital Discharge Instructions Allergies, Adverse Reactions, Alerts Penicillins causes Severe Hives. Onset 1967.Latex Allergy has not been assessed.IV Contrast Allergy has not been assessed.No Known Food Allergies. Medication Medication reconciliation has not been performed.
--- OUTSIDE RECORDS SUMMARY | 2017-03-10 23:41 | External Medical Summary | Summary of Care ---
[...] Window CBC w/ Auto Diff 7150 Ordered: 12-Jun-2016 CBC w/ Auto Diff 7150 Ordered: 12-Jun-2016 CBC w/ Auto Diff 7150 Ordered: 12-Jun-2016 Comprehensive Metabolic Panel 1212 Ordered: 12-Jun-2016 MAGNESIUM 1260 Ordered: 12-Jun-2016 AMYLASE 1250 Ordered: 12-Jun-2016 Lipase 1275 Ordered: 12-Jun-2016 THYROID STIM. HORMONE 3602 Ordered: 12-Jun-2016 FREE T4 3604 Ordered: 12-Jun-2016 Immunization Name Dates Details Immunizations not documented Social History Smoking Status Name Dates Details Unknown if ever smoked Vital Signs Date Test Result Details 12-Jun-2016 16:11 BP Systolic 98 mm[Hg] Status: Comments: Location: ; Position: BP Diastolic 64 mm[Hg] Status: Comments: Location: ; Position: Temperature 97.7 f Status: Comments: Method: Heart Rate 71 /min Status: Comments: Location: ; Weight 156 lb Status: Body Mass Index Calculated 21.16 kg/m2 Status: Body Surface Area Calculated 1.92 m2 Status: 16-May-2016 11:02 BP Systolic 106 mm[Hg] Status: [...] >60 ml/min Range: >60 EST GFR, NON-AFR AFGHAN >60 ml/min Range: >60 Comments: EST GFR [...] >60 ml/min Range: >60 EST GFR, NON-AFR AFGHAN >60 ml/min Range: >60 Comments: EST GFR [...] Observations CBC w/ Auto Diff 7150 On 19-Jun-2016 Intent CBC w/ Auto Diff 7150 On 26-Jun-2016 Intent CBC w/ Auto Diff 7150 On 03-Jul-2016 Intent Comprehensive Metabolic Panel 1212 On 03-Jul-2016 Intent MAGNESIUM 1260 On 03-Jul-2016 Intent AMYLASE 1250 On 03-Jul-2016 Intent Lipase 1275 On 03-Jul-2016 Intent THYROID STIM. HORMONE 3602 On 03-Jul-2016 Intent FREE T4 3604 On 03-Jul-2016 Intent Planned Goals not documented Planned Encounters Appointment; Provider: Poornima العلي M.D. On 19-Feb-2017 10:00 Appointment; Provider: Tristan Garber M.D.|FACP|MShirleyDShirley,FACP|MShirleyDShirley,FACP, On Jun-2016 15:15 Instructions Name Dates Details Instructions not documented Encounters Appointment; Tristan Garber M.D.|FACP|M.DShirley,FACP|M.DShirley,FACP, On 16-May-2016 Encounter [...] documented 09:00 Appointment; Tristan Garber M.D.|FACP|M.DShirley,FACP|M.DShirley,FACP, On 22-Feb-2016 Encounter [...]
--- OUTSIDE RECORDS SUMMARY | 2017-03-10 23:42 | External Medical Summary | Summary of Care ---
:1960 Author Name Jcarlos Shelton FACP,Gregorio Address [address] Unavailable [place], [place] [id number] Care Team Providers Name Role Phone Malu Rosales Primary Care Provider Unavailable Functional Status Functional Status Health Issues Name Dates Details Functional status health issues are not documented Status: Cognitive Status Health Issues Name Dates Details Cognitive status health issues are not documented Status: Problems Name Dates Details Cellulitis (682.9, L03.90) Status: Active Lung cancer (162.9, C34.90) Status: Active Pneumonia (486, J18.9) Status: Active Medications Name Dates Details Percocet 10-325 MG Oral Tablet Take 1 tablet twice daily Refills: 0 Started Active Allergies and Adverse Reactions Name Dates Details Penicillins Status: Active Procedures Procedure Dates Details CBC w/ Auto Diff 7150 Ordered: Comprehensive Metabolic Panel 1212 Ordered: MAGNESIUM 1260 Ordered: Immunization Name Dates Details Immunizations not documented Social History Smoking StatusUnknown if ever smoked Vital Signs Date Test Result Details 11:03 BP Systolic 122 mm[Hg] Status: BP Diastolic 81 mm[Hg] Status: Temperature 98.6 f Status: Heart Rate 81 /min Status: Height 72 in Status: Weight 192 lb Status: Body Mass Index Calculated 26.04 kg/m2 Status: Body Surface Area Calculated 2.09 m2 Status: Results Date Description Value Details Results not documented Plan of Care Planned Observations Name Dates Details Planned Goals not documented Goal Planned Encounters Appointment; Provider: Tristan Garber On 09:00 Instructions Instructions not documented Encounters Appointment; Tristan Garber On Encounter Diagnosis: Problem not documented 11:00
--- OUTSIDE RECORDS SUMMARY | 2017-03-10 23:42 | External Medical Summary | Summary of Care ---
:1960 Author Name Jcarlos Shelton FACP,, F Tristan Address [address] [place], [place] [id number] Care Team Providers Name Role Phone Verify [...] documented Encounters No Encounter data documented On 14-Sep-2015 Encounter Diagnosis: Problem not documented
--- OUTSIDE RECORDS SUMMARY | 2017-03-10 23:42 | External Medical Summary | Summary of Care ---
[...] 1212 Ordered: 22-Feb-2016 MAGNESIUM 1260 Ordered: 22-Feb-2016 Immunization [...] WBC PLATELET Adequate Range: Adequate ANISO Mod 10-Nov-2016 15:08 Manual Differential 7400 SEGS 80 % [...] Diff 7150 Comments: Critical result called to [facility] by Sigrid Taylor on 02/24/2016 at 3:16 [...] Manual Differential 7400 Comments: DOS 03/08/16 AT [facility] SEGS 97 % (Above high threshold) Range: [...] Observations CBC w/ Auto Diff 7150 On 02-Mar-2016 Intent Comprehensive Metabolic Panel 1212 On 02-Mar-2016 Intent MAGNESIUM 1260 On 02-Mar-2016 Intent Planned Goals not documented Planned Encounters Appointment; Provider: Poornima العلي M.D. On 19-Feb-2017 10:00 Interventions Provided Labs/Procedures/ImagingCBC w/ Auto Diff 7150; Done: Feb 28 2016 9:09AMCBC w/ Auto Diff 7150; Done: Mar 01 2016 2:50PMMAGNESIUM 1260; Done: Feb 28 2016 9: 09AMMAGNESIUM 1260; Done: Mar 01 2016 2:50PM Instructions Name Dates Details Instructions not documented [...]
--- OUTSIDE RECORDS SUMMARY | 2017-03-10 23:42 | External Medical Summary | Summary of Care ---
[...] ECG/ EKG (Specialists) Pendin21-Feb-2016 MAGNESIUM 1260 Ordered: 22-Feb-2016 CBC w/ Auto Diff 7150 Ordered: 22-Feb-2016 Comprehensive Metabolic Panel 1212 Ordered: 22-Feb-2016 MAGNESIUM 1260 Ordered: 22-Feb-2016 PROTIME PANEL 7000 Ordered: 28-Feb-2016 CBC w/ Auto Diff 7150 Ordered: 28-Feb-2016 Immunization Name Dates Details Immunizations not documented [...] m2 Status: Results Date Description Value Details 04-Feb-2016 10:06 CT HEAD WITHOUT AND WITH IV Comments: Exam Date: 2015 08:33Dictation Date: 02/04/2016 10:06 CONTRAST XC HEAD 10:20 CT CHEST/AB WITH ORAL AND IV Comments: Exam Date: 02/04/2016 08: 32Dictation Date: 02/04/2016 10:20 CONTRAST XC CHEST/AB 45 MIN MA 07-Feb-2016 09:53 MAGNESIUM 1260 MAGNESIUM 2.2 mg/dL [...] >60 ml/min Range: >60 EST GFR, NON-AFR [place] >60 ml/min Range: >60 Comments: EST GFR [...] Diff 7150 Comments: Critical result called to [facility] by Sigrid Taylor on 02/24/2016 at [...] Range: 150-400 MPV 7.5 fL Range: 6.0-11.0 Plan of Care Name Dates Details Planned Observations MAGNESIUM 1260 On 26-Feb-2016 Intent CBC w/ Auto Diff 7150 On 13-Mar-2016 Intent Comprehensive Metabolic Panel 1212 On 13-Mar-2016 Intent MAGNESIUM 1260 On 13-Mar-2016 Intent Planned Goals not documented Planned Encounters Appointment; Provider: Poornima العلي M.D. On 19-Feb-2017 10:00 Appointment; Provider: Tristan Garber M.D.|WILLIAN,WILLIAN,HEBERT, On Feb-2016 14:15 Appointment; Provider: Sarkis Woods M.D. On 08-Mar-2016 10:00 Interventions Provided Labs/Procedures/ImagingCB w/ Auto Diff 7150; Done: Feb 28 2016 9:09AMCBC w/ Auto Diff 7150; Done: Mar 01 2016 2:50PMMAGNESIUM 1260; Done: Feb 28 2016 9: 09AM Instructions Name Dates Details Instructions not documented Encounters Appointment; Poornima العلي M.D. On 21-Feb-2016 Encounter Diagnosis: Problem not documented 10:15 Appointment; Trisatn Garber M.D.|FACP|M.DShirley,FACP|M.DShirley,FACP, On 01-Feb-2016 Encounter Diagnosis: Problem [...]
--- OUTSIDE RECORDS SUMMARY | 2017-03-10 23:42 | External Medical Summary | Summary of Care ---
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) Status: Active Cancer related pain (338.3, G89.3) Status: Active Screening for colon cancer (V76.51, Z12.11) Status: Active History of Pericardial effusion (423.9, I31.3) Status: Resolved Pulmonary embolism (415.19, I26.99) Status: Active PAF (paroxysmal atrial fibrillation) (427.31, I48.0) Status: Active Cough with sputum (786.2, R05) Status: Active History of Creation Of Pericardial Window Status: Resolved Tachycardia (785.0, R00.0) Status: Active Dyspnea (786.09, R06.00) Status: Active Pneumonia (486, J18.9) Status: Active Cellulitis (682.9, L03.90) Status: Active Dehydration (276.51, E86.0) Status: Active Medications Name Dates Details Metoprolol Tartrate 50 MG Oral Tablet TAKE ONE TABLET BY MOUTH TWICE A DAY ( MORNING AND AT BEDTIME) Quantity: 180 Refills: 3 Tin EricaCordell Start 09-Aug-2016 Active PredniSONE 10 MG Oral Tablet TAKE 1 TABLET DAILY. Quantity: 30 Refills: 1 Jcarlos Shelton, HEBERT, , , Tristan F Start 06-Sep-2016 Active Dexamethasone 4 MG Oral Tablet one tab po bid day before and day after Alimta treatment Quantity: 30 Refills: 1 Jcarlos Shelton, HEBERT, , , Tristan F Start 28-Dec-2015 Active Ondansetron HCl - 8 MG Oral Tablet 1 tab every 6-8 hours as needed for nausea Quantity: 20 Refills: 3 Jcarlos Shelton FACP, , , Tristan F Start 29-Dec-2015 Active Warfarin Sodium 7.5 MG Oral Tablet TAKE 1 TABLET DAILY. Refills: 0 Start 17-Feb-2016 Active Nitroglycerin 0.4 MG Sublingual Tablet Sublingual PLACE 1 TABLET UNDER THE TONGUE EVERY 5 MINUTES FOR UP TO 3 DOSES NEEDED FOR CHEST PAIN.CALL 911 IF PAIN PERSISTS. Refills: 0 Start 17-Feb-2016 Active Prochlorperazine Maleate 10 MG Oral Tablet 1 tab every 6-8 hours as needed for mild nausea and vomiting Quantity: 30 Refills: 3 Jcarlos Shelton FACP, , , Tristan F Start 29-Dec-2015 Active Folic Acid 1 MG Oral Tablet Take 1 tablet daily Quantity: 30 Refills: 5 Jcarlos Shelton FACP, , , Tristan F Start 28-Dec-2015 Active Allergies and Adverse Reactions Name Dates Details Penicillins (Allergy) Status: Active Past Medical History Name Dates Details History of Pericardial effusion (423.9, I31.3) Status: Resolved Procedures Procedure Dates Details History of Creation Of Pericardial Window THYROID STIM. HORMONE 3602 Ordered: Lipase 1275 Ordered: FREE T4 3604 Ordered: Comprehensive Metabolic Panel 1212 Ordered: AMYLASE 1250 Ordered: CBC w/ Auto Diff 7150 Ordered: CT NECK/CHEST/ABD/PEL WITH ORAL AND IV CONTRAST Ordered: Immunization Name Dates Details Immunizations not documented Family History Sister Name Dates Details Family history of malignant neoplasm of breast (V16.3, Z80.3) Status: Active Social History Name Dates Details - Status: Smoking Status Name Dates Details Current every day smoker Vital Signs Date Test Result Details 11:31 BP Systolic 104 mm[Hg] Status: Comments: [...] Location: ; Results Date Description Value Details 06-Sep-2016 09:22 CBC w/ Auto Diff 7150 [...] >60 ml/min Range: >60 EST GFR, NON-AFR THAI >60 ml/min Range: >60 Comments: EST GFR [...] CBC w/ Auto Diff 7150 On Intent AMYLASE 1250 On Intent Comprehensive Metabolic Panel 1212 On Intent FREE T4 3604 On Intent Lipase 1275 On Intent THYROID STIM. HORMONE 3602 On Intent Planned Goals not documented Planned Encounters Appointment; Provider: Poornima العلي M.D. On 19-Feb-2017 10:00 Appointment; Provider: Tristan Garber M.D.|WILLIAN DORSEY FACP, On September-2016 11:15 Appointment; Provider: Schedule Radiology On 11:00 Interventions Provided Labs/Procedures/ImagingCBC w/ Auto Diff 7150; Done: Oct 04 2016 12:50PM Instructions Name Dates Details Instructions not documented Encounters Appointment; Tristan Garber M.D.|WILLIAN DORSEY FACP, On Encounter Diagnosis: Problem not documented 09:45 [...] Problem not documented 09:00 Appointment; Tristan Garber M.D.|FACP|M.D.,FACP|M.D.,HEBERT, On Encounter Diagnosis: Problem not documented 11:00"
--- OUTSIDE RECORDS SUMMARY | 2017-03-10 23:42 | External Medical Summary | Summary of Care ---
:1960 Author Name Claire Tipton APRN Address [address] Unavailable [place], [place] [id number] Care Team Providers Name Role Phone Claire [...] m2 Status: Results Date Description Value Details 07-Aug-2016 10:35 CBC w/ Auto Diff 7150 [...] >60 ml/min Range: >60 EST GFR, NON-AFR [place] >60 ml/min Range: >60 Comments: EST GFR [...] Range: 0.80-1.67 22-Aug-2016 08:18 Carbohydrate Antigen 19-9 [id number] Comments: Testing performed at: [DA] [facility], [address] [place] [address], [place], [address], , Acrobatic Dancer: KOURTNEY Wallace MD [place] 19-9 1 U/mL [...] Range: 0.0-0.7 BASO 0.1 K/uL Range: 0.0-0.2 Plan of Care Name Dates Details Planned Observations Planned Goals not documented Planned Encounters Appointment; Provider: Poornima العلي M.D. On 19-Feb-2017 10:00 Appointment; Provider: Tristan Garber M.D.|FACP|MShirleyDShirley,FACP|Cat,HEBERT, On September-2016 11:15 Instructions Name Dates Details Instructions not documented Encounters Appointment; Claire Tipton A.P.R.N. On 25-Aug-2016 Encounter Diagnosis: Problem not documented 13:30 Appointment; Tristan Garber M.D.|FACP|M.DShirley,FACP|MTreva,FACP, On 24-Aug-2016 Encounter Diagnosis: Problem not documented 11:00 Appointment; Tristan Garber M.D.|FACP|M.DShirley,FACP|MShirleyDShirley,FACP, On 27-Jul-2016 Encounter Diagnosis: Problem not documented [...] Problem not documented 15:00 Appointment; Tristan Garber M.D.|FACP|MShirleyDShirley,FACP|Cat,FACP, On 16-May-2016 Encounter Diagnosis: Problem not documented 11:00 Appointment; Tristan Garber M.D.|FACP|M.DShirley,FACP|MTreva,FACP, On 01-May-2016 Encounter Diagnosis: Problem not documented 13:30 Appointment; Tristan Garber M.D.|FACP|M.DShirley,FACP|MTreva,FACP, On 24-Apr-2016 Encounter Diagnosis: Problem not documented 13:00 Appointment; Tristan Garber M.D.|FACP|MShirleyDShirley,FACP|Cat,FACP, On 03-Apr-2016 Encounter Diagnosis: Problem not documented 16:00 Appointment; Tristan Garber M.D.|FACP|MShirleyDShirley,FACP|MTreva,FACP, On 20-Mar-2016 Encounter Diagnosis: Problem not documented 16:00 Appointment; Tristan Garber M.D.|FACP|M.DShirley,FACP|Cat,FACP, On 13-Mar-2016 Encounter Diagnosis: Problem not documented [...] Problem not documented 10:15 Appointment; Tristan Garber M.D.|KELLIEP|Cat,KELLIEP|Cat,HEBERT, On 28-Dec-2015 Encounter Diagnosis: Problem not documented 09:15 Appointment; Tristan Garber M.D.|FACP|Cat,KELLIEP|Cat,HEBERT, On 13-Dec-2015 Encounter Diagnosis: Problem not documented 13:15 Appointment; Tristan Garber M.D.|KELLIEP|Cat,FACP|Cat,KELLIEP, On Encounter Diagnosis: Problem not documented 09:00 Appointment; Tristan Garber M.D.|WILLIAN,HEBERT|Cat,HEBERT, On Encounter Diagnosis: Problem not documented 11:00"
--- OUTSIDE RECORDS SUMMARY | 2017-03-10 23:43 | External Medical Summary | Summary of Care ---
[...] Active Pancreatic carcinoma (157.9, C25.9) Status: Active Medications Name Dates Details Metoprolol [...] Of Pericardial Window FREE T4 3604 Ordered: 06-Jul-2016 THYROID STIM. HORMONE 3602 Ordered: 06-Jul-2016 MRI ABDOMEN WITHOUT AND WITH CONTRAST WITH MRCP Ordered: 24-Jul-2016 Immunization Name Dates Details Immunizations not documented Family History Sister Name Dates Details Family history of malignant neoplasm of breast (V16.3, Z80.3) Status: Active Social History Name Dates Details - Status: Smoking Status Name Dates Details Current every day smoker Vital Signs Date Test Result Details 18-Jul-2016 13:17 BP Systolic 106 mm[Hg] Status: [...] m2 Status: Results Date Description Value Details 26-Jun-2016 10:32 CBC w/ Auto Diff 7150 [...] Date: 07/24/2016 09:10 CONTRAST XC CHEST/AB/PEL 45 [place] 10:22 CBC w/ Auto Diff 7150 WBC [...] AMYLASE 1250 AMYLASE 48 U/L Range: 25-115 Plan of Care Name Dates Details Planned Observations FREE T4 3604 On 13-Jul-2016 Intent THYROID STIM. HORMONE 3602 On 13-Jul-2016 Intent Planned Goals not documented Planned Encounters Appointment; Provider: Poornima العلي M.D. On 19-Feb-2017 10:00 Appointment; Provider: Schedule Radiology On 07-Aug-2016 11:00 Appointment; Provider: Schedule Radiology On 07-Aug-2016 10:45 Appointment; Provider: Tristna Garber M.D.|WILLIAN,WILLIAN,HEBERT, On Jul-2016 11:00 Appointment; Provider: Schedule Radiology On 24-Jul-2016 08:00 Interventions Provided Labs/Procedures/ImagingAMYLASE 1250; Done: Jul 24 2016 9:25AMCBC w/ Auto Diff 7150; Done: Jul 17 2016 10:05AMCBC w/ Auto Diff 7150; Done: Jul 24 2016 9: 25AMCBC w/ Auto Diff 7150; Done: Jul 10 2016 9:50AMComprehensive Metabolic Panel 1212; Done: Jul 24 2016 9:25AMLipase 1275; Done: Jul 24 2016 9: 25AMMAGNESIUM 1260; Done: Jul 24 2016 9:25AM Instructions Name Dates Details Instructions not documented Encounters Appointment; Tristan Garber M.D.|FACP|M.D.,FACP|M.DShirley,FACP, On 12-Jun-2016 Encounter Diagnosis: Problem not documented 15:00 Appointment; Tristan Garber M.D.|FACP|M.D.,FACP|M.D.,FACP, On 16-May-2016 Encounter Diagnosis: Problem not documented 11:00 Appointment; Tristan Garber M.D.|FACP|M.DShirley,FACP|MShirleyDShirley,FACP, On 01-May-2016 Encounter Diagnosis: Problem not documented 13:30 Appointment; Tristan Garber M.D.|FACP|M.DShirley,FACP|M.DShirley,FACP, On 24-Apr-2016 Encounter Diagnosis: Problem not documented [...] documented 10:15 Appointment; Tristan Garber M.D.|FACP|M.DShirley,FACP|Cat,FACP, On 01-Feb-2016 Encounter Diagnosis: Problem not documented 16:00 Appointment; Tristan Garber M.D.|FACP|Cat,FACP|Cat,FACP, On 11-Jan-2016 Encounter Diagnosis: Problem not documented 10:15 Appointment; Tristan Garber M.D.|FACP|Cat,FACP|Cat,FACP, On 28-Dec-2015 Encounter Diagnosis: Problem not documented 09:15 Appointment; Tristan Garber M.D.|FACP|Cat,FACP|Cat,FACP, On 13-Dec-2015 Encounter Diagnosis: Problem not documented 13:15 Appointment; Tristan Garber M.D.|FACP|Cat,FACP|Cat,FACP, On Encounter Diagnosis: Problem not documented 09:00 Appointment; Tristan Garber M.D.|FACP|MTreva,FACP|Cat,FACP, On Encounter Diagnosis: Problem not documented 11:00"
--- OUTSIDE RECORDS SUMMARY | 2017-03-10 23:43 | External Medical Summary | Summary of Care ---
[...] AT BEDTIME) Quantity: 180 Refills: 3 Tin P.A., Cordell Start 09-Aug-2016 Active Folic Acid 1 MG [...] Details History of Creation Of Pericardial Window Carbohydrate Antigen 19-9 [id number] Ordered: 27-Jul-2016 FREE T4 3604 Ordered: 27-Jul-2016 [...] m2 Status: Results Date Description Value Details 24-Jul-2016 09:10 CT CHEST/AB/PEL WITH ORAL AND IV Comments: Exam Date: 01/2017 08:01Dictation Date: 07/24/2016 09:10 CONTRAST XC CHEST/AB/PEL 45 [place] 10:22 CBC w/ Auto Diff 7150 WBC [...] >60 ml/min Range: >60 EST GFR, NON-AFR [place] >60 ml/min Range: >60 Comments: EST GFR [...] >60 ml/min Range: >60 EST GFR, NON-AFR [place] >60 ml/min Range: >60 Comments: EST GFR [...] AMYLASE 1250 AMYLASE 55 U/L Range: 25-115 Plan of Care Name Dates Details Planned Observations Carbohydrate Antigen 19-9 [id number] On 10-Aug-2016 Intent FREE T4 3604 On 10-Aug-2016 Intent Planned Goals not documented Planned Encounters Appointment; Provider: Poornima العلي M.D. On 19-Feb-2017 10:00 Appointment; Provider: Tristan Garber M.D.|WILLIAN DORSEY FACP, On Aug-2016 11:00 Appointment; Provider: Schedule Radiology On 07-Aug-2016 11:15 Appointment; Provider: Schedule Radiology On 07-Aug-2016 11:00 Interventions Provided Labs/Procedures/ImagingAMYLASE 1250; Done: Aug 21 2016 9:15AMCBC w/ Auto Diff 7150; Done: Jul 31 2016 10:45AMCBC w/ Auto Diff 7150; Done: Aug 07 2016 10: 20AMCBC w/ Auto Diff 7150; Done: Aug 14 2016 12:45PMCBC w/ Auto Diff 7150; Done : Aug 21 2016 9:15AMComprehensive Metabolic Panel 1212; Done: Aug 21 2016 9: 15AMLipase 1275; Done: Aug 21 2016 9:15AM Instructions Name Dates Details Instructions not documented Encounters Appointment; Tristan Garber M.D.|WILLIAN DORSEY FACP, On 18-Jul-2016 Encounter Diagnosis: Problem not documented [...] documented 10:15 Appointment; Tristan Garber M.D.|FACP|MTreva,FACP|Cat,FACP, On 01-Feb-2016 Encounter Diagnosis: Problem not documented [...]
--- OUTSIDE RECORDS SUMMARY | 2017-03-10 23:43 | External Medical Summary | Summary of Care ---
[...] m2 Status: Results Date Description Value Details 22-May-2016 11:36 CBC w/ Auto Diff 7150 [...] WBC PLATELET Adequate Range: Adequate ANISO Slight -May-2016 09:46 CBC w/ Auto Diff 7150 Comments: [...] Observations CBC w/ Auto Diff 7150 On 26-Jun-2016 [...] Appointment; Provider: Tristan Garber M.D.|WILLIAN,HEBERT DORSEY, On Jun-2016 15:15 Interventions Provided Labs/Procedures/ImagingCBC w/ Auto Diff 7150; To be Done: 12 Jun 2016 Instructions Name Dates Details Instructions not documented Encounters Appointment; Tristan Garber M.D.|WILLIAN,HEBERT DORSEY, On 16-May-2016 Encounter Diagnosis: Problem not documented 11:00 Appointment; Tristan Garber M.D.|FACP|M.DShirley,FACP|MTreva,FACP, On 01-May-2016 Encounter Diagnosis: Problem not documented 13:30 Appointment; Tristan Garber M.D.|FACP|M.DShirley,FACP|Cat,FACP, On 24-Apr-2016 Encounter Diagnosis: Problem not documented 13:00 Appointment; Tristan Garber M.D.|FACP|M.DShirley,FACP|MTreva,FACP, On 03-Apr-2016 Encounter Diagnosis: Problem not documented 16:00 Appointment; Tristan Garber M.D.|FACP|M.DShirley,FACP|MTreva,FACP, On 20-Mar-2016 Encounter Diagnosis: Problem not documented 16:00 Appointment; Tristan Garber M.D.|FACP|MShirleyDShirley,FACP|Cat,FACP, On 13-Mar-2016 Encounter Diagnosis: Problem not documented 09:30 Appointment; Sarkis Woods M.D. On 08-Mar-2016 Encounter Diagnosis: Problem not documented 09:00 Appointment; Tristan Garber M.D.|FACP|MShirleyDShirley,FACP|Cat,FACP, On 22-Feb-2016 Encounter Diagnosis: Problem not documented 14:15 Appointment; Poornima العلي M.D. On 21-Feb-2016 Encounter Diagnosis: Problem not documented 10:15 Appointment; Tristan Garber M.D.|FACP|M.DShirley,FACP|MTreva,FACP, On 01-Feb-2016 Encounter Diagnosis: Problem not documented 16:00 Appointment; rTistan Garber M.D.|FACP|M.DShirley,FACP|Cat,FACP, On 11-Jan-2016 Encounter Diagnosis: Problem not documented 10:15 Appointment; Tristan Garber M.D.|FACP|M.DShirley,FACP|MTreva,FACP, On 28-Dec-2015 Encounter Diagnosis: Problem not documented 09:15 Appointment; Tristan Garber M.D.|FACP|M.DShirley,FACP|M.D.,FACP, On 13-Dec-2015 Encounter Diagnosis: Problem not documented 13:15 Appointment; Tristan Garber M.D.|HEBERT|Cat,HEBERT|HEBERT Shelton, On Encounter Diagnosis: Problem not documented 09:00 Appointment; Tristan Garber M.D.|HEBERT|Cat,HEBERT|HEBERT Shelton, On Encounter Diagnosis: Problem not documented 11:00"
--- OUTSIDE RECORDS SUMMARY | 2017-03-10 23:43 | External Medical Summary | Summary of Care ---
[...] >60 ml/min Range: >60 EST GFR, NON-AFR SWAZI >60 ml/min Range: >60 Comments: EST GFR [...] Appointment; Provider: Schedule Radiology On 24-Jul-2016 08:00 Instructions Name Dates Details Instructions not documented Encounters Appointment; Claudio Ritchie M.D. On 13-Jul-2016 Encounter [...] Problem not documented 09:00 Appointment; Tristan Garber M.D.|FACP|M.D.,FACP|MShirleyDShirely,FACP, On 22-Feb-2016 Encounter Diagnosis: Problem not documented 14:15 Appointment; Poornima العلي M.D. On 21-Feb-2016 Encounter Diagnosis: Problem not documented 10:15 Appointment; Tristan Garber M.D.|FACP|M.D.,FACP|MhSirleyDShirley,FACP, On 01-Feb-2016 Encounter Diagnosis: Problem not documented 16:00 Appointment; Tristan Garber M.D.|FACP|M.DShirley,FACP|MShirleyDShirley,FACP, On 11-Jan-2016 Encounter Diagnosis: Problem not documented 10:15 Appointment; Tristan Garber M.D.|FACP|M.DShirley,FACP|MShirleyDShirley,FACP, On 28-Dec-2015 Encounter Diagnosis: Problem not documented 09:15 Appointment; Tristan Garber M.D.|FACP|M.D.,FACP|M.DShirley,FACP, On 13-Dec-2015 Encounter Diagnosis: Problem not documented 13:15 Appointment; Tristan Garber M.D.|FACP|M.D.,FACP|MShirleyDShirley,FACP, On Encounter Diagnosis: Problem not documented 09:00 Appointment; Tristan Garber M.D.|FACP|M.D.,FACP|MShirleyDShirley,FACP, On Encounter Diagnosis: Problem not documented 11:00"
--- OUTSIDE RECORDS SUMMARY | 2017-03-10 23:44 | External Medical Summary | Summary of Care ---
[...] Refills: 1 Jcarlos Shelton, KELLIEP, , , Tritsan F Start 28-Dec-2015 Active Prochlorperazine Maleate 10 [...] Procedure Dates Details ECG/ EKG (Specialists) Pendin15-Feb-2016 Comprehensive Metabolic Panel 1212 Ordered: 14-Feb-2016 MAGNESIUM 1260 Ordered: 14-Feb-2016 CBC w/ Auto Diff 7150 Ordered: 01-Feb-2016 [...] 02/04/2016 10:20 CONTRAST XC CHEST/AB 45 MIN VT 07-Feb-2016 09:53 MAGNESIUM 1260 MAGNESIUM 2.2 mg/dL [...] Observations CBC w/ Auto Diff 7150 On 21-Feb-2016 Intent Comprehensive Metabolic Panel 1212 On 21-Feb-2016 Intent MAGNESIUM 1260 On 21-Feb-2016 Intent CBC w/ Auto Diff 7150 On 24-Feb-2016 Intent Planned Goals not documented Planned Encounters Appointment; Provider: rTistan Garber M.D.|WILLIAN,HEBERT|Cat,KELLIEP, On Feb-2016 14:15 Appointment; Provider: Poornima العلي M.D. On 21-Feb-2016 10:15 Appointment; Provider: Schedule Radiology On 17-Feb-2016 11:00 Appointment; Provider: Schedule Radiology On 17-Feb-2016 08:00 Appointment; Provider: Schedule Radiology On 04-Feb-2016 10:30 Appointment; Provider: Schedule Radiology On 04-Feb-2016 10:30 Interventions Provided Labs/Procedures/ImagingC w/ Auto Diff 7150; Done: Feb 07 2016 9: 25AMMAGNESIUM 1260; Done: Feb 07 2016 9:25AM Instructions Name Dates Details Instructions not documented Encounters Appointment; Tristan Garber M.D.|FACP|MShirleyDShirley,FACP|Cat,FACP, On 11-Jan-2016 Encounter Diagnosis: Problem not documented 10:15 Appointment; Tristan Garber M.D.|FACP|MShirleyDShirley,FACP|Cat,FACP, On 28-Dec-2015 Encounter Diagnosis: Problem not documented 09:15 Appointment; Tristan Garber M.D.|FACP|MShirleyDShirley,FACP|Cat,FACP, On 13-Dec-2015 Encounter Diagnosis: Problem not documented 13:15 Appointment; Tristan Garber M.D.|FACP|M.DShirley,FACP|MTreva,FACP, On Encounter Diagnosis: Problem not documented 09:00 Appointment; Tristan Garber M.D.|FACP|M.DShirley,FACP|Cat,FACP, On Encounter Diagnosis: Problem not documented 11:00"
--- OUTSIDE RECORDS SUMMARY | 2017-03-10 23:44 | External Medical Summary | Summary of Care ---
[...] >60 ml/min Range: >60 EST GFR, NON-AFR [place] >60 ml/min Range: >60 Comments: EST GFR [...] Date: 04/20/2016 09:31 CONTRAST XC CHEST/AB/PEL 45 [place] 24-Apr-2016 13:01 CBC w/ Auto Diff 7150 [...] >60 ml/min Range: >60 EST GFR, NON-AFR [place] >60 ml/min Range: >60 Comments: EST GFR [...] Dates Details Planned Observations MAGNESIUM 1260 On 08-May-2016 Intent CBC w/ Auto Diff 7150 On 08-May-2016 Intent CBC w/ Auto Diff 7150 On 15-May-2016 Intent Comprehensive Metabolic Panel 1212 On 15-May-2016 Intent MAGNESIUM 1260 On 15-May-2016 Intent Planned Goals not documented Planned Encounters Appointment; Provider: Poornima العلي M.D. On 19-Feb-2017 10:00 Appointment; Provider: Tristan Garber M.D.|WILLIAN,HEBERT DORSEY, On Apr-2016 11:00 Interventions Provided Labs/Procedures/ImagingCBC w/ Auto Diff 7150; To be Done: 24 Apr 2016MAGNESIUM 1260; To be Done: 24 Apr 2016 Instructions Name Dates Details Instructions not documented Encounters Appointment; Tristan Garber M.D.|WILLIAN,HEBERT DORSEY, On 03-Apr-2016 Encounter Diagnosis: Problem not documented 16:00 Appointment; Tristan Garber M.D.|WILLIAN,HEBERT DORSEY, On 20-Mar-2016 [...]
--- OUTSIDE RECORDS SUMMARY | 2017-03-10 23:44 | External Medical Summary ---
:1960 Author Name GENERATED, SYSTEM Care Team Providers Name Role Phone MD MEDINA CLARICE Primary Care Provider [phone] Reason For Visit Reason for Visit from 02/18/2016 2:18 PM:Pt Stated Reason for Adm : PRBC Chief Complaint ANEMIA/LUNG CA Social History Functional Status Functional Status from 02/18/2016 2:18 PM:LOC : AlertOriented To : Person,Place, Time Vital Signs Hospital Vital Signs from 02/18/2016 7:12 PM:Height : 5/11 ft,inTemperature : 96.4 FPulse : 64Respirations : 18BP : 105/68Hospital Vital Signs from 02/18/2016 7:07 PM:Height : 5/11 ft,inTemperature : 96.6 FPulse : 68Respirations : 18BP : 105/70Hospital Vital Signs from 02/18/2016 6:07 PM:Height : 5/11 ft, inTemperature : 96.6 FPulse : 56Respirations : 18BP : 104/66Hospital Vital Signs from 02/18/2016 5:07 PM:Height : 5/11 ft,inTemperature : 96.2 FPulse : 64Respirations : 18BP : 105/64Hospital Vital Signs from 02/18/2016 4:52 PM: Height : 5/11 ft,inTemperature : 97.4 FPulse : 65Respirations : 20BP : 100/ 62Hospital Vital Signs from 02/18/2016 2:18 PM:Weight : 142/ lbs,ozHeight : 5/11 ft,in Results Chemistry from 02/20/2016 5:05 SPCRFNHY622 MMOL/L (136-145 MMOL/L) POTASSIUM4.0 MMOL/L (3.5-5.1 MMOL/L) JSQOBXZN410 MMOL/L (98-107 MMOL/L) IQD980.1 MMOL/L (21.0-32.0 MMOL/L) *ANION GAP8.9 MMOL/L (8.0-16.0 MMOL/L) BUN10 MG/DL (7-18 MG/DL) CREATININE0.57 MG/DL L (0.70-1.30 MG/DL) *BUN/CREATININE RATIO17.5 H (9.1-17.0 ) HAMCTUE24 MG/DL (65-99 MG/DL) *GFR EST NON AFR TRINIDADIAN>90 ML/MIN *GFR EST AFR AMER>90 ML/MIN CALCIUM8.9 MG/DL (8.5-10.1 MG/DL)Chemistry from 02/19/2016 3:09 ZRZSOJHS020 MMOL/ L (136-145 MMOL/L) POTASSIUM3.5 MMOL/L (3.5-5.1 MMOL/L) NNLSKJIB818 MMOL/L (98-107 MMOL/L) MJG877.9 MMOL/L (21.0-32.0 MMOL/L) *ANION GAP7.1 MMOL/L L (8.0-16.0 MMOL/L) BUN14 MG/DL (7-18 MG/DL) CREATININE0.81 MG/DL (0.70-1.30 MG/DL) *BUN/CREATININE RATIO17.3 H (9.1-17.0 ) OXGWGUU606 MG/DL H (65-99 MG/DL) *GFR EST NON AFR TRINIDADIAN>90 ML/MIN *GFR EST AFR AMER>90 ML/MIN CALCIUM8.7 MG/DL (8.5-10.1 MG/DL) BILIRUBIN TOTAL0.20 MG/DL (0.20-1.00 MG/DL) TOTAL PROTEIN6.5 GM/DL (6.4-8.2 GM/DL) ALBUMIN2.4 GM/DL L (3.4-5.0 GM/DL) *GLOBULIN4.1 GM/DL H (2.3-3.5 GM/DL) *A/G RATIO0.6 MG/DL L (1.5-2.2 MG/DL) ALK LQLP660 U/L H (46-116 U/L) ALT (SGPT)72 U/L H (14-59 U/L) AST (SGOT)32 U/L (15-37 U/L) AHZPEE706 U/L (73-393 U/L)Hematology from 03/11/2016 2:24 PMWBC10.8 X10e3/UL ( 3.6-11.2 X10e3/UL) RBC3.81 X10e6/UL L (4.06-5.63 X10e6/UL) GZFEKVAMEZ69.9 G/DL L (12.5-16.3 G/DL) VEPEGZKFQZ63.6 % L (36.7-47.1 %) *MCV88.3 FL (80.0-100.0 FL) *MCH28.7 PG (27.0-33.0 PG) *MCHC32.5 G/DL (32.0-36.0 G/DL) *RDW22.5 % H (12.3-17.0 %) *RDWSD69.1 H (37.1-47.8 ) LYNWNTGP986 X10e3/UL (159-386 X10e3/UL) *MPV7.3 FL L (7.4-10.4 FL) AUTOMATED DIFFPERFORMED SEGS85.1 % *LYMPHOCYTES6.6 % *MONOCYTES7.1 % *EOSINOPHILS0.2 % *BASOPHILS1.0 % *ABSOLUTE NEUTROPHILS9.20 X10e3/UL H (1.80-7.80 X10e3/UL) *ABSOLUTE LYMPHOCYTES0.70 X10e3/UL L (1.00-3.00 X10e3/UL) *ABSOLUTE MONOCYTES0.80 X10e3/UL (0.30-1.00 X10e3/UL) *ABSOLUTE EOSINOPHILS0.00 X10e3/UL (0.00-0.50 X10e3/UL) *ABSOLUTE BASOPHILS0.10 X10e3/UL (0.00-0.20 X10e3/UL) *POLYCHROMASIA1+ *HYPOCHROMASIA1+ *TEARDROP CELLS1+Hematology from 02/20/2016 5:05 AMWBC7.3 X10e3/UL (3.6-11.2 X10e3/UL) RBC3.43 X10e6/UL L (4.06-5.63 X10e6/UL) HEMOGLOBIN9.9 G/DL L (12.5-16.3 G/DL) HQVLGAIQMY52.4 % L (36.7-47.1 %) *MCV85.8 FL (80.0-100.0 FL) *MCH28.8 PG (27.0-33.0 PG) *MCHC33.5 G/DL (32.0-36.0 G/DL) *RDW20.3 % H (12.3-17.0 %) *RDWSD59.9 H (37.1-47.8 ) FUVJFZJO722 X10e3/UL L (159-386 X10e3/UL) *MPV7.7 FL (7.4-10.4 FL) *MANUAL DIFFPERFORMED SEGS92.0 % *BANDS2.0 % *LYMPHOCYTES4.0 % *MONOCYTES2.0 % *EOSINOPHILS0.0 % *BASOPHILS0.0 % *ABSOLUTE NEUTROPHILS6.86 X10e3/UL (1.80-7.80 X10e3/UL) *ABSOLUTE LYMPHOCYTES0.29 X10e3/UL L (1.00-3.00 X10e3/UL) *ABSOLUTE MONOCYTES0.15 X10e3/UL L (0.30-1.00 X10e3/UL) *ABSOLUTE EOSINOPHILS0.00 X10e3/UL (0.00-0.50 X10e3/UL) *ABSOLUTE BASOPHILS0.00 X10e3/UL (0.00-0.20 X10e3/UL) *POLYCHROMASIA2+ STOMATOCYTES1+ *TOXIC GRANULATION1+Hematology from 02/19/2016 3:09 PMWBC10.1 X10e3/UL (3.6-11.2 X10e3/UL) RBC3.02 X10e6/UL L (4.06-5.63 X10e6/UL) HEMOGLOBIN8.7 G/DL L (12.5-16.3 G/DL) CMWGHPUXAF05.9 % L (36.7-47.1 %) *MCV85.8 FL (80.0-100.0 FL) *MCH28.7 PG (27.0-33.0 PG) *MCHC33.5 G/DL (32.0-36.0 G/DL) *RDW21.2 % H (12.3-17.0 %) *RDWSD62.6 H (37.1-47.8 ) LROILAMM193 X10e3/UL L (159-386 X10e3/UL) *MPV7.7 FL (7.4-10.4 FL) *MANUAL DIFFPERFORMED SEGS89.0 % *BANDS6.0 % *LYMPHOCYTES2.0 % *MONOCYTES2.0 % *EOSINOPHILS0.0 % *BASOPHILS1.0 % *ABSOLUTE NEUTROPHILS9.60 X10e3/UL H (1.80-7.80 X10e3/UL) *ABSOLUTE LYMPHOCYTES0.20 X10e3/UL L (1.00-3.00 X10e3/UL) *ABSOLUTE MONOCYTES0.20 X10e3/UL L (0.30-1.00 X10e3/UL) *ABSOLUTE EOSINOPHILS0.00 X10e3/UL (0.00-0.50 X10e3/UL) *ABSOLUTE BASOPHILS0.10 X10e3/UL (0.00-0.20 X10e3/UL) *TOXIC GRANULATION1+Hematology from 02/18/2016 3:24 PMHEMOGLOBIN8.5 G/DL L (12.5- 16.3 G/DL)Coagulation from 03/11/2016 2:24 PM*PROTHROMBIN TIME13.6 SECONDS H ( 9.4-11.5 SECONDS) *INR1.3 H (0.9-1.1 )Coagulation from 02/20/2016 5:05 AM*PROTHROMBIN TIME19.8 SECONDS H (9.4-11.5 SECONDS) *INR1.9 H (0.9-1.1 )Coagulation from 02/19/2016 3:09 PM*PROTHROMBIN TIME21.6 SECONDS H (9.4-11.5 SECONDS) *INR2.1 H (0.9-1.1 ) PARTIAL THROMBOPLASTIN TIME36.8 SECONDS H (23.0-31.0 SECONDS)Blood Bank from 02/19/2016 3:09 PMANTIBODY SCREEN (Indirect Kelsey)NEG RED BLOOD [id number] transfused compatible [id number] released compatible *[facility] RH TYPENEGBlood Bank from 02/18/2016 3:24 PMANTIBODY SCREEN (Indirect Kelsey) NEG RED BLOOD [id number] transfused compatible *[facility] [employer] RH TYPENEGDX Radiology from 02/19/2016 3:04 PMCHEST 2 VIEWSHistory: weakness. Technique: 2 VIEW CHEST Priors: 02/13/16 Findings: The cardiac silhouette and pulmonary vasculature within normal limits. A left suprahilar mass is again noted. There are no acute infiltrates or effusions. There is remote appearing left rib deformity. Impression: Left suprahilar mass without acute findings. Electronically signed by: Hamilton Pereyra MD Dictated: 02/19/2016 15:46 Problems Encounter Diagnosis No relevant problems exist. [...] Plan of Care Procedures Completed Procedure Code: [id number] Procedure Name: not valued, on 12/19/2015 10: 46 AMCompleted Procedure Code: 57885I6 Procedure Name: not valued, on 12/19/2015 10:38 AMCompleted Procedure Code: [id number] Procedure Name: not valued, on 2015 12:00 AMCompleted Procedure Code: [id number] Procedure Name: not valued, on 12:00 AM Immunizations No immunizations administered or ordered. Hospital Course Hospital Discharge Instructions Allergies, Adverse Reactions, Alerts Penicillins causes Severe Hives. Onset 1967.Latex Allergy has not been assessed.IV Contrast Allergy has not been assessed.No Known Food Allergies. Medication Medication reconciliation has not been performed.
--- OUTSIDE RECORDS SUMMARY | 2017-03-10 23:44 | External Medical Summary | Summary of Care ---
[...] >60 ml/min Range: >60 EST GFR, NON-AFR AZERBAIJANI >60 ml/min Range: >60 Comments: EST GFR [...] Range: 0.80-1.67 22-Aug-2016 08:18 Carbohydrate Antigen 19-9 [id number] Comments: Testing performed at: [DA] [facility], [address] [place] [address], [place], [address], , Fitness Supervisor: KOURTNEY Wallace MD [place] 19-9 1 U/mL [...] Observations CBC w/ Auto Diff 7150 On 06-Sep-2016 [...] 10:00 Appointment; Provider: Tristan Garber M.D.|FACP|MShirleyDShirley,FACP|MTreva,FACP, On September-2016 11:15 Interventions Provided Labs/Procedures/ImagingCBC w/ Auto Diff 7150; Done: Aug 30 2016 1:20PM Instructions Name Dates Details Instructions not documented Encounters Appointment; Tristan Garber M.D.|FACP|M.DShirley,FACP|M.DShirley,FACP, On 27-Jul-2016 Encounter Diagnosis: Problem not documented 11:00 Appointment; Tristan Garber M.D.|FACP|M.D.,FACP|M.D.,FACP, On 18-Jul-2016 Encounter Diagnosis: Problem not documented 13:15 Appointment; Claudio Ritchie M.D. On 13-Jul-2016 Encounter Diagnosis: Problem not documented 11:30 Appointment; Caridad Kuhn On 13-Jul-2016 Encounter Diagnosis: Problem not documented 11:00 Appointment; Poornima العلي M.D. On 12-Jul-2016 Encounter Diagnosis: Problem not documented 11:30 Appointment; Tristan Garber M.D.|FACP|M.D.,FACP|MShirleyDShirley,FACP, On 06-Jul-2016 Encounter Diagnosis: Problem not documented 15:15 Appointment; Tristan Garber M.D.|FACP|M.DShirley,FACP|MShirleyDShirley,FACP, On 12-Jun-2016 Encounter Diagnosis: Problem not documented 15:00 Appointment; Tristan Garber M.D.|FACP|M.DShirley,FACP|MShirleyDShirley,FACP, On 16-May-2016 Encounter Diagnosis: Problem not documented 11:00 Appointment; Tristan Garber M.D.|FACP|M.DShirley,FACP|MShirleyDShirley,FACP, On 01-May-2016 Encounter Diagnosis: Problem not documented 13:30 Appointment; Tristan Garber M.D.|FACP|MShirleyDShirley,FACP|MShirleyDShirley,FACP, On 24-Apr-2016 Encounter Diagnosis: Problem not documented [...] Problem not documented 09:15 Appointment; Tristan Garber M.D.|FACP|Cat,FACP|Cat,KELLIEP, On 13-Dec-2015 Encounter Diagnosis: Problem not documented 13:15 Appointment; Tristan Garber M.D.|FACP|Cat,FACP|Cat,FACP, On Encounter Diagnosis: Problem not documented 09:00 Appointment; Tristan Garber M.D.|FACP|MTreva,FACP|Cat,FACP, On Encounter Diagnosis: Problem not documented 11:00"
--- OUTSIDE RECORDS SUMMARY | 2017-03-10 23:44 | External Medical Summary | Summary of Care ---
[...] daily Quantity: 30 Refills: 5 Estephan M.D., FACP, , , Tristan F [...] Details CBC w/ Auto Diff 7150 Ordered: 11-Jan-2016 [...] Status: Results Date Description Value Details 28-Dec-2015 08:58 CBC w/ Auto Diff 7150 [...] Range: >60 EST GFR, NON-AFR [place] >60 ml/min Range: >60 Comments: EST GFR [...] Range: >60 EST GFR, NON-AFR [place] >60 ml/min Range: >60 Comments: EST GFR [...] DORSEY FACP, On Jan-2016 16:00 Interventions Provided Medication ChangesDexamethasone 4 MG Oral Tablet - StartFolic Acid 1 MG Oral Tablet - StartLabs/Procedures/ImagingCBC w/ Auto Diff 7150; Done: Jan 11 2016 10 :24AMComprehensive Metabolic Panel 1212; Done: Jan 11 2016 10:24AMMAGNESIUM 1260 ; Done: Jan 11 2016 10:24AM Instructions Name Dates Details Instructions not documented Encounters Appointment; Tristan Garber M.D.|WILLIAN DORSEY FACP, On 13-Dec-2015 Encounter Diagnosis: Problem not documented 13:15 Appointment; Tristan Garber M.D.|WILLIAN,HEBERT DORSEY, On Encounter Diagnosis: Problem not documented 09:00 Appointment; Tristan Garber M.D.|WILLIAN DORSEY FACP, On Encounter Diagnosis: Problem not documented 11:00"
--- OUTSIDE RECORDS SUMMARY | 2017-03-10 23:44 | External Medical Summary ---
:1960 Author Name GENERATED, SYSTEM Care Team Providers Name Role Phone MD CAROL, NADINE Primary Care Provider [phone] Reason For Visit Chief Complaint DIFFICULTY BREATHING Social History Functional Status Vital Signs Results [...] resolved by [facility] Workflow upon Discharge, Status: Resolved.History of Deep Vein Thrombosis Comment:Problem resolved by [facility] Workflow upon Discharge, Status:Resolved.History of Pulmonary Embolus Comment: Problem resolved by [facility] Workflow upon Discharge, Status:Resolved.Infection Risk Comment:Problem resolved by [facility] Workflow upon Discharge, Status: Resolved.Infection Risk Comment:Problem resolved by [facility] Workflow upon Discharge, Status:Resolved.Mobility Impairment Comment:Problem resolved by [facility] Workflow upon Discharge, Status:Resolved.Mobility Impairment Comment: Problem resolved by [facility] Workflow upon Discharge, Status:Resolved.Non-Small [...]
[2017-03-10] MEDS ORDERED: NS 1,000 ML IV SCH (23:45)
--- OUTSIDE RECORDS SUMMARY | 2017-03-10 23:45 | External Medical Summary ---
:1960 Author Name GENERATED, SYSTEM Care Team Providers Name Role Phone UNASSIGNED DOCTOR MD DON DOCTOR Primary Care Provider [phone] Reason For Visit Reason for Visit from 09/21/2015 7:59 AM:Pt Stated Reason for Adm : Vancomycin Chief Complaint PE Social History Functional Status Functional Status from 10/02/2015 7:52 AM:LOC : AlertOriented To : Person,Place, TimeFunctional Status from 10/01/2015 8:00 AM:LOC : AlertOriented To : Person, Place,TimeFunctional Status from 09/30/2015 8:01 AM:LOC : AlertOriented To : Person,Place,Time,EventFunctional Status from 09/29/2015 7:45 AM:LOC : AlertOriented To : Person,Place,TimeFunctional Status from 09/28/2015 8:30 AM: LOC : AlertOriented To : Person,Place,Time,EventFunctional Status from 2015 8:11 AM:LOC : AlertOriented To : Person,Place,Time,EventFunctional Status from 09/26/2015 7:56 PM:LOC : AlertOriented To : Person,Place,Time, EventFunctional Status from 09/26/2015 7:47 AM:LOC : AlertOriented To : Person, Place,Time,EventFunctional Status from 09/25/2015 5:45 PM:LOC : AlertOriented To : Person,Place,Time,EventFunctional Status from 09/25/2015 7:43 AM:LOC : AlertOriented To : Person,Place,Time,EventFunctional Status from 09/24/2015 8:03 PM:LOC : AlertOriented To : Person,Place,Time,EventFunctional Status from 2015 7:55 AM:LOC : AlertOriented To : Person,Place,TimeFunctional Status from 09/23/2015 7:17 PM:LOC : AlertOriented To : Person,Place,Time,EventFunctional Status from 09/23/2015 7:47 AM:LOC : AlertOriented To : Person,Place,Time, EventFunctional Status from 09/22/2015 7:40 PM:LOC : AlertOriented To : Person, Place,Time,EventFunctional Status from 09/22/2015 7:40 AM:LOC : AlertOriented To : Person,Place,TimeFunctional Status from 09/22/2015 5:15 AM:LOC : AlertOriented To : Person,Place,Time,EventFunctional Status from 09/21/2015 7:35 PM:LOC : AlertOriented To : Person,Place,Time,EventFunctional Status from 09/21/2015 7:59 AM:LOC : AlertOriented To : Person,Place,Time,EventFunctional Status from 2015 7:30 PM:LOC : AlertOriented To : Person,Place,Time,Event Vital Signs Hospital Vital Signs from 10/02/2015 7:52 AM:Height : 5/10 ft,inTemperature : 97.9 FPulse : 74Respirations : 18BP : 116/80Hospital Vital Signs from 10/01/2015 8:00 AM:Height : 5/10 ft,inTemperature : 98.2 FPulse : 65Respirations : 18BP : 110/71Hospital Vital Signs from 09/30/2015 8:01 AM:Height : 5/10 ft, inTemperature : 97.5 FPulse : 71Respirations : 18BP : 143/82Hospital Vital Signs from 09/29/2015 7:45 AM:Height : 5/10 ft,inTemperature : 96.5 FPulse : 62Respirations : 18BP : 114/55Hospital Vital Signs from 09/28/2015 8:30 AM: Height : 5/10 ft,inTemperature : 98.2 FPulse : 58Respirations : 20BP : 118/ 72Hospital Vital Signs from 09/27/2015 7:55 AM:Height : 5/10 ft,inTemperature : 97.3 FPulse : 65Respirations : 18BP : 124/83Hospital Vital Signs from 09/26/2015 7:45 PM:Height : 5/10 ft,inTemperature : 98.0 FPulse : 78Respirations : 20BP : 127/72Hospital Vital Signs from 09/26/2015 7:58 AM:Height : 5/10 ft, inTemperature : 98.2 FPulse : 56Respirations : 18BP : 110/69Hospital Vital Signs from 09/25/2015 7:25 PM:Height : 5/10 ft,inTemperature : 98.7 FPulse : 67Respirations : 18BP : 118/73Hospital Vital Signs from 09/25/2015 5:45 PM: Height : 5/10 ft,inTemperature : 98.2 FPulse : 73Respirations : 18BP : 127/ 73Hospital Vital Signs from 09/25/2015 7:50 AM:Height : 5/10 ft,inTemperature : 97.8 FPulse : 58Respirations : 18BP : 120/72Hospital Vital Signs from 09/24/2015 7:45 PM:Height : 5/10 ft,inTemperature : 98.9 FPulse : 75Respirations : 18BP : 118/71Hospital Vital Signs from 09/24/2015 7:55 AM:Height : 5/10 ft, inTemperature : 96.9 FPulse : 67Respirations : 18BP : 108/76Hospital Vital Signs from 09/23/2015 7:19 PM:Height : 5/10 ft,inTemperature : 98.6 FPulse : 91Respirations : 18BP : 158/73Hospital Vital Signs from 09/23/2015 7:47 AM:Height : 5/10 ft,inTemperature : 97.7 FPulse : 67Respirations : 18BP : 142/79Hospital Vital Signs from 09/22/2015 7:43 PM:Height : 5/10 ft,inTemperature : 97.9 FPulse : 79Respirations : 18BP : 120/79Hospital Vital Signs from 09/22/2015 7:40 AM: Height : 5/10 ft,inTemperature : 95.0 FPulse : 66Respirations : 18BP : 125/ 68Hospital Vital Signs from 09/21/2015 7:35 PM:Height : 5/10 ft,inTemperature : 98 FPulse : 94Respirations : 18BP : 145/74Hospital Vital Signs from 09/21/2015 8: 05 AM:Height : 5/10 ft,inTemperature : 97.2 FPulse : 66Respirations : 18BP : 115 /76Hospital Vital Signs from 09/21/2015 7:59 AM:Weight : 174/ lbs,ozHeight : 5/10 ft,in Results Blood Gas from 09/19/2015 4:06 AM*ARTERIAL PH7.433 (7.350-7.450 ) *ARTERIAL IV7167.1 MM HG (35.0-45.0 MM HG) *ART. PO268 MM HG L (80-95 MM HG) *ART. TOTAL CO220.9 mmol/L (20.0-30.0 mmol/L) *ART. SGLJRREFDNW83.7 MEQ/L (19.0-29.0 MEQ/L) *ART. BASE EXCESS0.3 (-2.5-2.5 ) ART. O2 VSEKJKBXPE45.3 % (91.0-97.0 %) *PATIENT ATMOSPHEREROOM AIR *SPECIMEN SITEARTERIALChemistry from 09/27/2015 8:03 POOGFMBR993 MMOL/L (136-145 MMOL/L) POTASSIUM3.5 MMOL/L (3.5-5.1 MMOL/L) CEOSYIBC582 MMOL/L (98-107 MMOL/L) UEJ134.5 MMOL/L (21.0-32.0 MMOL/L) *ANION GAP9.5 MMOL/L (8.0-16.0 MMOL/L) BUN10 MG/DL (7-18 MG/DL) CREATININE1.52 MG/DL H (0.70-1.30 MG/DL) *BUN/CREATININE RATIO6.6 L (9.1-17.0 ) DBUQXQX968 MG/DL H (65-99 MG/DL) *GFR EST NON AFR UBODXLUH38 ML/MIN *GFRA EST AFR AMER59 ML/MIN CALCIUM9.1 MG/DL (8.5-10.1 MG/DL) BILIRUBIN TOTAL0.40 MG/DL (0.20-1.00 MG/DL) TOTAL PROTEIN7.1 GM/DL (6.4-8.2 GM/DL) ALBUMIN3.0 GM/DL L (3.4-5.0 GM/DL) *GLOBULIN4.1 GM/DL H (2.3-3.5 GM/DL) *A/G RATIO0.7 MG/DL L (1.5-2.2 MG/DL) ALK PHOS59 U/L (46-116 U/L) ALT (SGPT)18 U/L (14-59 U/L) AST (SGOT)11 U/L L (15-37 U/L) C-REACTIVE PROTEIN3.50 MG/DL H (0.00-0.30 MG/DL) VANCOMYCIN YACOBB77.8 MCG/ML H (5.0-10.0 MCG/ML)Chemistry from 09/20/2015 6:42 STZROAZN310 MMOL/L (136-145 MMOL/L) POTASSIUM3.5 MMOL/L (3.5-5.1 MMOL/L) ESZBZNWM529 MMOL/L H (98-107 MMOL/L) IEJ866.7 MMOL/L (21.0-32.0 MMOL/L) *ANION GAP9.3 MMOL/L (8.0-16.0 MMOL/L) BUN9 MG/DL (7-18 MG/DL) CREATININE1.05 MG/DL (0.70-1.30 MG/DL) *BUN/CREATININE RATIO8.6 L (9.1-17.0 ) EBMLEBL083 MG/DL H (65-99 MG/DL) *GFR EST NON AFR ZZFCHROB08 ML/MIN *GFRA EST AFR AMER>90 ML/MIN CALCIUM8.8 MG/DL (8.5-10.1 MG/DL)Chemistry from 09/19/2015 4:48 PMVANCOMYCIN CLDPGH81.7 MCG/ML H (5.0-10.0 MCG/ML)Chemistry from 09/19/2015 4:56 VKHDDHJN364 MMOL/L (136-145 MMOL/L) POTASSIUM3.6 MMOL/L (3.5-5.1 MMOL/L) DNIGTUBN247 MMOL/L H (98-107 MMOL/L) SWI429.6 MMOL/L (21.0-32.0 MMOL/L) *ANION GAP10.4 MMOL/L (8.0-16.0 MMOL/L) BUN12 MG/DL (7-18 MG/DL) CREATININE1.08 MG/DL (0.70-1.30 MG/DL) *BUN/CREATININE RATIO11.1 (9.1-17.0 ) DDHLXSP306 MG/DL H (65-99 MG/DL) *GFR EST NON AFR OHPNMPSL33 ML/MIN *GFRA EST AFR AMER89 ML/MIN CALCIUM8.6 MG/DL (8.5-10.1 MG/DL) BILIRUBIN TOTAL0.20 MG/DL (0.20-1.00 MG/DL) TOTAL PROTEIN6.8 GM/DL (6.4-8.2 GM/DL) ALBUMIN2.9 GM/DL L (3.4-5.0 GM/DL) *GLOBULIN3.9 GM/DL H (2.3-3.5 GM/DL) *A/G RATIO0.7 MG/DL L (1.5-2.2 MG/DL) ALK PHOS56 U/L (46-116 U/L) ALT (SGPT)41 U/L (14-59 U/L) AST (SGOT)31 U/L (15-37 U/L)Chemistry from 09/18/2015 8:01 AUMCWFHW788 MMOL/L (136 -145 MMOL/L) POTASSIUM3.9 MMOL/L (3.5-5.1 MMOL/L) JZSKVTPK067 MMOL/L (98-107 MMOL/L) GMZ024.9 MMOL/L (21.0-32.0 MMOL/L) *ANION GAP6.1 MMOL/L L (8.0-16.0 MMOL/L) BUN11 MG/DL (7-18 MG/DL) CREATININE1.22 MG/DL (0.70-1.30 MG/DL) *BUN/CREATININE RATIO9.0 L (9.1-17.0 ) GRULINJ29 MG/DL (65-99 MG/DL) *GFR EST NON AFR POXROFDG16 ML/MIN *GFRA EST AFR AMER77 ML/MIN CALCIUM8.7 MG/DL (8.5-10.1 MG/DL)Chemistry from 09/17/2015 4:56 PMVANCOMYCIN MVGHST61.7 MCG/ML H (5.0-10.0 MCG/ML)Chemistry from 09/16/2015 6:25 LDEEQFMP008 MMOL/L (136-145 MMOL/L) POTASSIUM3.8 MMOL/L (3.5-5.1 MMOL/L) AGEOGEPN715 MMOL/L (98-107 MMOL/L) WPV303.8 MMOL/L (21.0-32.0 MMOL/L) *ANION GAP8.2 MMOL/L (8.0-16.0 MMOL/L) BUN13 MG/DL (7-18 MG/DL) CREATININE1.06 MG/DL (0.70-1.30 MG/DL) *BUN/CREATININE RATIO12.3 (9.1-17.0 ) EWJVSNR84 MG/DL (65-99 MG/DL) *GFR EST NON AFR AJLIZOWL42 ML/MIN *GFRA EST AFR AMER>90 ML/MIN CALCIUM8.8 MG/DL (8.5-10.1 MG/DL)Hematology from 09/27/2015 8:03 AMWBC9.5 X10e3/ UL (3.6-11.2 X10e3/UL) RBC4.79 X10e6/UL (4.06-5.63 X10e6/UL) OGLTZTCUKC56.9 G/DL (12.5-16.3 G/DL) WSMWZKYRRV66.3 % (36.7-47.1 %) *MCV86.3 FL (80.0-100.0 FL) *MCH29.1 PG (27.0-33.0 PG) *MCHC33.7 G/DL (32.0-36.0 G/DL) *RDW16.1 % (12.3-17.0 %) *RDWSD49.0 H (37.1-47.8 ) FCVZRXJY976 X10e3/UL (159-386 X10e3/UL) *MPV7.7 FL (7.4-10.4 FL) *MANUAL DIFFPERFORMED SEGS75.0 % *BANDS0.0 % *LYMPHOCYTES7.0 % *MONOCYTES8.0 % *EOSINOPHILS4.0 % *BASOPHILS4.0 % MYELOCYTES1.0 % *REACTIVE LYMPHOCYTES1.0 % *ABSOLUTE NEUTROPHILS7.22 X10e3/UL (1.80-7.80 X10e3/UL) *ABSOLUTE LYMPHOCYTES0.76 X10e3/UL L (1.00-3.00 X10e3/UL) *ABSOLUTE MONOCYTES0.76 X10e3/UL (0.30-1.00 X10e3/UL) *ABSOLUTE EOSINOPHILS0.38 X10e3/UL (0.00-0.50 X10e3/UL) *ABSOLUTE BASOPHILS0.38 X10e3/UL H (0.00-0.20 X10e3/UL) ANISOCYTOSIS3+ SED RATE47 MM/HR H (0-20 MM/HR)Hematology from 09/20/2015 6:42 AMWBC7.3 X10e3/UL ( 3.6-11.2 X10e3/UL) RBC4.70 X10e6/UL (4.06-5.63 X10e6/UL) GASDLKFDLB91.8 G/DL (12.5-16.3 G/DL) AEQCBVHJUP45.0 % (36.7-47.1 %) *MCV87.3 FL (80.0-100.0 FL) *MCH29.4 PG (27.0-33.0 PG) *MCHC33.6 G/DL (32.0-36.0 G/DL) *RDW15.9 % (12.3-17.0 %) *RDWSD48.6 H (37.1-47.8 ) SFLPJXHQ282 X10e3/UL (159-386 X10e3/UL) *MPV7.6 FL (7.4-10.4 FL) AUTOMATED DIFFPERFORMED SEGS69.1 % *GZJFTCTLPFB18.1 % *MONOCYTES6.7 % *EOSINOPHILS5.3 % *BASOPHILS0.8 % *ABSOLUTE NEUTROPHILS5.10 X10e3/UL (1.80-7.80 X10e3/UL) *ABSOLUTE LYMPHOCYTES1.30 X10e3/UL (1.00-3.00 X10e3/UL) *ABSOLUTE MONOCYTES0.50 X10e3/UL (0.30-1.00 X10e3/UL) *ABSOLUTE EOSINOPHILS0.40 X10e3/UL (0.00-0.50 X10e3/UL) *ABSOLUTE BASOPHILS0.10 X10e3/UL (0.00-0.20 X10e3/UL)Hematology from 09/19/2015 4: 56 AMWBC8.2 X10e3/UL (3.6-11.2 X10e3/UL) RBC4.70 X10e6/UL (4.06-5.63 X10e6/UL) DOVSZOOQRK74.7 G/DL (12.5-16.3 G/DL) JVRDSGJAOI31.0 % (36.7-47.1 %) *MCV87.2 FL (80.0-100.0 FL) *MCH29.2 PG (27.0-33.0 PG) *MCHC33.5 G/DL (32.0-36.0 G/DL) *RDW16.3 % (12.3-17.0 %) *RDWSD50.3 H (37.1-47.8 ) TIZMPPYF755 X10e3/UL (159-386 X10e3/UL) *MPV7.8 FL (7.4-10.4 FL) AUTOMATED DIFFPERFORMED SEGS73.8 % *DYHQIDQQFSU77.9 % *MONOCYTES7.1 % *EOSINOPHILS4.3 % *BASOPHILS0.9 % *ABSOLUTE NEUTROPHILS6.00 X10e3/UL (1.80-7.80 X10e3/UL) *ABSOLUTE LYMPHOCYTES1.10 X10e3/UL (1.00-3.00 X10e3/UL) *ABSOLUTE MONOCYTES0.60 X10e3/UL (0.30-1.00 X10e3/UL) *ABSOLUTE EOSINOPHILS0.40 X10e3/UL (0.00-0.50 X10e3/UL) *ABSOLUTE BASOPHILS0.10 X10e3/UL (0.00-0.20 X10e3/UL)Hematology from 09/18/2015 8: 01 AMWBC7.3 X10e3/UL (3.6-11.2 X10e3/UL) RBC4.84 X10e6/UL (4.06-5.63 X10e6/UL) BECRKQTCAH28.9 G/DL (12.5-16.3 G/DL) XIVUYVGZWC17.5 % (36.7-47.1 %) *MCV87.8 FL (80.0-100.0 FL) *MCH28.7 PG (27.0-33.0 PG) *MCHC32.7 G/DL (32.0-36.0 G/DL) *RDW16.7 % (12.3-17.0 %) *RDWSD51.2 H (37.1-47.8 ) HZXEMRZR184 X10e3/UL (159-386 X10e3/UL) *MPV8.2 FL (7.4-10.4 FL) AUTOMATED DIFFPERFORMED SEGS70.7 % *FQDAODZAFUQ96.4 % *MONOCYTES6.4 % *EOSINOPHILS4.4 % *BASOPHILS1.1 % *ABSOLUTE NEUTROPHILS5.20 X10e3/UL (1.80-7.80 X10e3/UL) *ABSOLUTE LYMPHOCYTES1.30 X10e3/UL (1.00-3.00 X10e3/UL) *ABSOLUTE MONOCYTES0.50 X10e3/UL (0.30-1.00 X10e3/UL) *ABSOLUTE EOSINOPHILS0.30 X10e3/UL (0.00-0.50 X10e3/UL) *ABSOLUTE BASOPHILS0.10 X10e3/UL (0.00-0.20 X10e3/UL)Hematology from 09/16/2015 6: 25 AMWBC7.3 X10e3/UL (3.6-11.2 X10e3/UL) RBC4.73 X10e6/UL (4.06-5.63 X10e6/UL) MKUTZBTIQF87.7 G/DL (12.5-16.3 G/DL) CZSZFERXYR61.4 % (36.7-47.1 %) *MCV87.5 FL (80.0-100.0 FL) *MCH29.0 PG (27.0-33.0 PG) *MCHC33.1 G/DL (32.0-36.0 G/DL) *RDW16.3 % (12.3-17.0 %) *RDWSD49.9 H (37.1-47.8 ) QPQWVGAU021 X10e3/UL (159-386 X10e3/UL) *MPV7.6 FL (7.4-10.4 FL) AUTOMATED DIFFPERFORMED SEGS69.4 % *EYGFEHHZSUF20.1 % *MONOCYTES7.5 % *EOSINOPHILS4.7 % *BASOPHILS1.3 % *ABSOLUTE NEUTROPHILS5.10 X10e3/UL (1.80-7.80 X10e3/UL) *ABSOLUTE LYMPHOCYTES1.30 X10e3/UL (1.00-3.00 X10e3/UL) *ABSOLUTE MONOCYTES0.50 X10e3/UL (0.30-1.00 X10e3/UL) *ABSOLUTE EOSINOPHILS0.30 X10e3/UL (0.00-0.50 X10e3/UL) *ABSOLUTE BASOPHILS0.10 X10e3/UL (0.00-0.20 X10e3/UL)Urinalysis from 09/18/2015 11 :40 AM Status: Final Result URINALYSIS Specimen Number: [id number] Sample Collection Date/Time: 09/18/2015 11:40 AM Specimen [...] TIME12.0 SECONDS H (9.4-11.5 SECONDS) *INR1.1 (0.9-1.1 )Blood Bank from 09/19/2015 4:56 AMANTIBODY [...] MD Dictated: 09/19/2015 08:11 Problems Encounter Diagnosis No relevant problems exist. [...]
--- OUTSIDE RECORDS SUMMARY | 2017-03-10 23:45 | External Medical Summary | Summary of Care ---
[...] not documented Status: Problems Name Dates Details History of Creation Of Pericardial Window Status: Resolved Cellulitis (682.9, L03.90) Status: Active Dyspnea (786.09, R06.00) Status: Active History of Pericardial effusion (423.9, I31.3) Status: Resolved Tachycardia (785.0, R00.0) Status: Active PAF (paroxysmal atrial fibrillation) (427.31, I48.0) Status: Active 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.7, C79.70) Status: Active Pulmonary embolism (415.19, I26.99) Status: Active Screening for colon cancer (V76.51, Z12.11) Status: Active Cough with sputum (786.2, R05) Status: Active Pneumonia (486, J18.9) Status: Active Dehydration (276.51, E86.0) Status: Active [...] m2 Status: Results Date Description Value Details 29-May-2016 10:09 CBC w/ Auto Diff 7150 [...] Range: 150-400 MPV 6.5 fL Range: 6.0-11.0 Plan of Care Name Dates Details Planned Observations CBC w/ Auto Diff 7150 On 03-Jul-2016 Intent Comprehensive Metabolic Panel 1212 On 03-Jul-2016 Intent MAGNESIUM 1260 On 03-Jul-2016 Intent AMYLASE 1250 On 03-Jul-2016 Intent Lipase 1275 On 03-Jul-2016 Intent THYROID STIM. HORMONE 3602 On 03-Jul-2016 Intent FREE T4 3604 On 03-Jul-2016 Intent Planned Goals not documented Planned Encounters Appointment; Provider: Poornima العلي M.D. On 19-Feb-2017 10:00 Appointment; Provider: Tristan Garber M.D.|FACP|M.DShirley,FACP|M.DShirley,FACP, On Jun-2016 15:15 Appointment; Provider: Claudio Ritchie M.D. On 29-Jun-2016 10:30 Appointment; Provider: Caridad Kuhn On 29-Jun-2016 10:00 Interventions Provided Labs/Procedures/ImagingCBC w/ Auto Diff 7150; Done: Jun 19 2016 9:55AMCBC w/ Auto Diff 7150; Done: Jun 26 2016 9:45AM Instructions Name Dates Details Instructions not documented Encounters Appointment; Tristan Garber M.D.|FACP|M.D.,FACP|M.D.,FACP, On 16-May-2016 Encounter [...]
--- OUTSIDE RECORDS SUMMARY | 2017-03-10 23:45 | External Medical Summary | Summary of Care ---
[...] Cancer related pain (338.3, G89.3) Status: Active Brain metastases (198.3, C79.31) Status: Active Medications Name Dates Details Metoprolol Tartrate 50 MG Oral Tablet TAKE ONE TABLET BY MOUTH TWICE A DAY ( MORNING AND AT BEDTIME) Quantity: 180 Refills: 3 Tin EricaCordell Start 09-Aug-2016 Active Prochlorperazine Maleate 10 MG [...] DAILY. Quantity: 30 Refills: 1 Jcarlos Shelton, FACP, , , Tristan F Start 06-Sep-2016 Active OxyCODONE HCl - 15 MG Oral Tablet TAKE 1 TABLET EVERY 4 HOURS NEEDED FOR PAIN. Quantity: 90 Refills: 0 Jcarlos Shelton, FACP, , , Tristan F Start Active Allergies [...] Status: 11:31 BP Systolic 104 mm[Hg] Status: BP Diastolic 69 mm[Hg] Status: Temperature 97.7 f Status: Comments: Method: Heart Rate 64 /min Status: Comments: Location: ; Weight 162 lb Status: Body Mass Index Calculated 21.97 kg/m2 Status: Body Surface Area Calculated 1.95 m2 Status: Results Date Description Value Details 14:01 CBC w/ Auto Diff 7150 Comments: [...] >60 ml/min Range: >60 EST GFR, NON-AFR [place] >60 ml/min Range: >60 Comments: EST GFR [...] >60 ml/min Range: >60 EST GFR, NON-AFR [place] >60 ml/min Range: >60 Comments: EST GFR [...] 10:00 Appointment; Provider: Tristan Garber M.D.|WILLIAN,WILLIAN,HEBERT, On October-2016 11:45 Interventions Provided Labs/Procedures/ImagingCBC w/ Auto Diff 7150; Done: Oct 16 2016 10:05AMCBC w/ Auto Diff 7150; Done: Oct 23 2016 10:15AM Instructions Name Dates Details Instructions not documented Encounters Appointment; Tristan Garber M.D.|FACP|M.DShirley,FACP|MShirleyDShirley,FACP, On Encounter Diagnosis: Problem not documented 10:15 Appointment; Tristan Garber M.D.|FACP|M.DShirley,FACP|MShirleyDShirley,FACP, On Encounter Diagnosis: Problem not documented 09:45 Appointment; Claire Titpon A.P.R.N. On 01-Sep-2016 Encounter Diagnosis: Problem not [...]
--- OUTSIDE RECORDS SUMMARY | 2017-03-10 23:45 | External Medical Summary | Summary of Care ---
:1960 Author Name Jcarlos Shelton, HEBERT, ,, F Tristan Address Unavailable Unavailable , Care Team Providers Name Role Phone Sarkis Woods M.D. Unavailable Unavailable Jcarlos Shelton FACP, ,, [...] needed for nausea Quantity: 20 Refills: 3 Roxannalex Cat, FACP, , , Tristan F Start 29-Dec-2015 [...] Diff 7150 Comments: Critical result called to [facility] by Sigrid Taylor on 02/24/2016 [...] Items were attached to this order: PT, ARMATURE COIL WINDER Charge MAGNESIUM 1.9 mg/dL Range: 1.8-2.4 14:23 PROTIME PANEL 7000 Comments: Items were attached to this order: PT, ARMATURE COIL WINDER Charge PROTIME 35.2 secs (Above high threshold) Range: 12.0-14.9 INR 3.47 14:23 Manual Differential 7400 Comments: Items were attached to this order: PT, ARMATURE COIL WINDER Charge SEGS 85 % (Above high threshold) [...] On 19-Feb-2017 10:00 Appointment; Provider: Tristan Garber M.D.|HEBERT|Cat,HEBERT|Cat,HEBERT, On Mar-2016 13:30 Appointment; Provider: Tristan Garber M.D.|FACP|M.D.,FACP|MShirleyDShirley,FACP, On Mar-2016 16:00 Instructions Name Dates Details Instructions not documented Encounters Appointment; Sarkis Woods M.D. On 08-Mar-2016 Encounter Diagnosis: Problem not documented 09:00 Appointment; Tristan Garber M.D.|FACP|M.D.,FACP|MShirleyDShirley,FACP, On 22-Feb-2016 Encounter Diagnosis: Problem not documented 14:15 Appointment; Poornima العلي M.D. On 21-Feb-2016 Encounter Diagnosis: Problem not documented 10:15 Appointment; Tristan Garber M.D.|FACP|M.DShirley,FACP|MShirleyDShirley,FACP, On 01-Feb-2016 Encounter Diagnosis: Problem not documented 16:00 Appointment; Tristan Garebr M.D.|FACP|M.DShirley,FACP|MShirleyDShirley,FACP, On 11-Jan-2016 Encounter Diagnosis: Problem not documented 10:15 Appointment; Tristan Garber M.D.|FACP|M.D.,FACP|M.DShirley,FACP, On 28-Dec-2015 Encounter Diagnosis: Problem not documented 09:15 Appointment; Tristan Garber M.D.|FACP|M.D.,FACP|M.DShirley,FACP, On 13-Dec-2015 Encounter Diagnosis: Problem not documented 13:15 Appointment; Tristan Garber M.D.|FACP|M.D.,FACP|M.DShirley,FACP, On Encounter Diagnosis: Problem not documented 09:00 Appointment; Tristan Garber M.D.|FACP|M.D.,FACP|M.DShirley,FACP, On Encounter Diagnosis: Problem not documented 11:00"
--- OUTSIDE RECORDS SUMMARY | 2017-03-10 23:46 | External Medical Summary | Summary of Care ---
[...] Garber M.D.|WILLIAN DORSEY FACP, On Jan-2016 16:00 Appointment; Provider: Schedule Radiology On 27-Dec-2015 09:00 Appointment; Provider: Schedule Radiology On 27-Dec-2015 09:00 Interventions Provided Labs/Procedures/ImagingCBC w/ Auto Diff 7150; Done: Dec 13 2015 1:52PMCBC w/ Auto Diff 7150; Done: Dec 28 2015 8:48AMComprehensive Metabolic Panel 1212; Done: Dec 13 2015 1:52PMComprehensive Metabolic Panel 1212; Done: Dec 28 2015 8:48AMMAGNESIUM 1260; Done: Dec 28 2015 8:48AMPROTIME PANEL 7000; Done: Dec 13 2015 1:52PMPROTIME PANEL 7000; Done: Dec 28 2015 8:48AM Instructions Name Dates Details Instructions not documented Encounters Appointment; Tristan Garber M.D.|WILLIAN DORSEY FACP, On Encounter Diagnosis: Problem not documented 09:00 Appointment; Tristan Garber M.D.|WILLIAN DORSEY FACP, On Encounter Diagnosis: Problem not documented 11:00"
--- OUTSIDE RECORDS SUMMARY | 2017-03-10 23:46 | External Medical Summary | Summary of Care ---
[...] Refills: 1 Jcarlos Shelton, KELLIEP, , , Tirstan F Start 28-Dec-2015 Active Prochlorperazine Maleate 10 [...] >60 ml/min Range: >60 EST GFR, NON-AFR [place] >60 ml/min Range: >60 Comments: EST GFR [...] Range: 0.80-1.67 22-Aug-2016 08:18 Carbohydrate Antigen 19-9 [id number] Comments: Testing performed at: [DA[facility], [address] [place] [address], [place], [address], , Cosmetic Maker: KOURTNEY Wallace MD [place] 19-9 1 U/mL [...] Observations CBC w/ Auto Diff 7150 On 13-Sep-2016 [...] On 19-Feb-2017 10:00 Appointment; Provider: Tristan Garber M.D.|FACP|Cat,HEBERT DORSEY, On September-2016 11:15 Interventions [facility]; Done: Aug 30 2016 1:20PMCB w/ Auto Diff 7150; Done: Sep 06 2016 8:40AM Instructions Name Dates Details Instructions not documented Encounters Appointment; Tristan Garber M.D.|FACP|MTreva,FACP|Cat,KELLIEP, On 27-Jul-2016 Encounter Diagnosis: Problem not documented 11:00 Appointment; Tristan Garber M.D.|FACPMisti,FACP|Cat,KELLIEP, On 18-Jul-2016 Encounter Diagnosis: Problem not documented 13:15 Appointment; Claudio Ritchie M.D. On 13-Jul-2016 Encounter Diagnosis: Problem not documented 11:30 Appointment; Caridad Kuhn On 13-Jul-2016 Encounter Diagnosis: Problem not documented 11:00 Appointment; Poornima العلي M.D. On 12-Jul-2016 Encounter Diagnosis: Problem not documented 11:30 Appointment; Tristan Garber M.D.|KELLIEPMisti,FACP|Cat,FACP, On 06-Jul-2016 Encounter Diagnosis: Problem not documented 15:15 Appointment; Tristan Garber M.D.|FACP|MShirleyDShirley,FACP|MTreva,FACP, On 12-Jun-2016 Encounter Diagnosis: Problem not documented 15:00 Appointment; Tristan Garber M.D.|FACP|MShirleyDShirley,FACP|MTreva,FACP, On 16-May-2016 Encounter Diagnosis: Problem not documented 11:00 Appointment; Tristan Garber M.D.|FACP|M.DShirley,FACP|MTreva,FACP, On 01-May-2016 Encounter Diagnosis: Problem not documented 13:30 Appointment; Tristan Garber M.D.|FACP|MShirleyDShirley,FACP|MTreva,FACP, On 24-Apr-2016 Encounter Diagnosis: Problem not documented 13:00 Appointment; Tristan Garber M.D.|FACP|M.DShirley,FACP|MShirleyDShirley,FACP, On 03-Apr-2016 Encounter Diagnosis: Problem not documented 16:00 Appointment; Tristan Garber M.D.|FACP|M.DShirley,FACP|MTreva,FACP, On 20-Mar-2016 Encounter Diagnosis: Problem not documented 16:00 Appointment; Tristan Garber M.D.|FACP|M.D.,FACP|MShirleyDShirley,FACP, On 13-Mar-2016 Encounter Diagnosis: Problem not documented [...] Problem not documented 09:15 Appointment; Tristan Garber M.D.|FACP|M.D.,FACP|MShirleyDShirley,FACP, On 13-Dec-2015 Encounter Diagnosis: Problem not documented 13:15 Appointment; Tristan Garber M.D.|FACP|M.DShirley,FACP|MShirleyDShirley,FACP, On Encounter Diagnosis: Problem not documented 09:00 Appointment; Tristan Garber M.D.|WILLIAN,HEBERT|Cat,HEBERT, On Encounter Diagnosis: Problem not documented 11:00"
--- OUTSIDE RECORDS SUMMARY | 2017-03-10 23:46 | External Medical Summary | Summary of Care ---
:1960 Author Name Jcarlos Shelton, FACP, ,, F Tristan Address Unavailable Unavailable , Care Team Providers Name Role Phone Jcarlos Shelton, KELLIEP, ,, F Tristan Unavailable Unavailable Malu Rosales Unavailable Unavailable Functional Status Functional Status Health Issues Name Dates Details Functional status health issues are not documented Status: Cognitive Status Health Issues Name Dates Details Cognitive status health issues are not documented Status: Problems Name Dates Details Cellulitis (682.9, L03.90) Status: Active Lung cancer (162.9, C34.90) Status: Active Pulmonary embolism (415.19, I26.99) Status: Active Pneumonia (486, J18.9) Status: Active Medications Name Dates Details HYDROmorphone HCl - 2 MG Oral Tablet TAKE 1 TABLET EVERY 6 HOURS. Refills: 0 Jcarlos Beard., FACP, , , Tristan F Start 13-Dec-2015 Active Warfarin Sodium 7.5 MG Oral Tablet TAKE 1 TABLET DAILY DIRECTED. Refills: 0 Jcarlos Beard., FACP, , , Tristan F Start 13-Dec-2015 Active Allergies and Adverse Reactions Name Dates Details Penicillins (Allergy) Status: Active Procedures Procedure Dates Details CBC w/ Auto Diff 7150 Ordered: 13-Dec-2015 Comprehensive Metabolic Panel 1212 Ordered: 13-Dec-2015 MAGNESIUM 1260 Ordered: 13-Dec-2015 PROTIME PANEL 7000 Ordered: 13-Dec-2015 PROTIME PANEL 7000 Ordered: 13-Dec-2015 CT HEAD WITHOUT AND WITH IV CONTRAST Ordered: 13-Dec-2015 CT NECK/CHEST/AB WITH ORAL AND IV CONTRAST Ordered: 13-Dec-2015 BONE SCAN WHOLE BODY Ordered: 13-Dec-2015 Immunization Name Dates Details Immunizations not documented Social History Smoking Status Name Dates Details Unknown if ever smoked Vital Signs Date Test Result Details 13-Dec-2015 13:15 BP Systolic 114 mm[Hg] Status: [...] >60 ml/min Range: >60 EST GFR, NON-AFR ANGOLAN >60 ml/min Range: >60 Comments: EST GFR is reported in ml/min per 1.73 m2 of body surface area. For -[place], please multiple result by 1.2.----- GLUCOSE 87 [...] Provider: Tristan Garber M.D.|WILLIAN DORSEY FACP, On Dec-2015 09:15 Appointment; Provider: Schedule Radiology On 27-Dec-2015 12:00 Appointment; Provider: Schedule Radiology On 27-Dec-2015 09:00 Appointment; Provider: Schedule Radiology On 27-Dec-2015 09:00 Instructions Name Dates Details Instructions not documented Encounters Appointment; Tristan Garber M.D.|WILLIAN,HEBERT DORSEY, On 13-Dec-2015 Encounter Diagnosis: Problem not documented 13:15 Appointment; Tristan Garber M.D.|WILLIAN DORSEY FACP, On Encounter Diagnosis: Problem not documented 09:00 Appointment; Tristan Garber M.D.|WILLIAN,HEBERT DORSEY, On Encounter Diagnosis: Problem not documented 11:00"
--- OUTSIDE RECORDS SUMMARY | 2017-03-10 23:46 | External Medical Summary | Summary of Care ---
[...] Date: 04/20/2016 09:31 CONTRAST XC CHEST/AB/PEL 45 ID 24-Apr-2016 13:01 CBC w/ Auto Diff 7150 [...] >60 ml/min Range: >60 EST GFR, NON-AFR GABONESE >60 ml/min Range: >60 Comments: EST GFR [...] >60 ml/min Range: >60 EST GFR, NON-AFR GABONESE >60 ml/min Range: >60 Comments: EST GFR [...] 10:00 Appointment; Provider: Tristan Garber M.D.|FACP|MShirleyDShirley,FACP|Cat,FACP, On Apr-2016 11:00 Interventions Provided Labs/Procedures/ImagingCBC w/ Auto Diff 7150; Done: May 01 2016 1:00PMCBC w/ Auto Diff 7150; Done: May 08 2016 10:30AMCBC w/ Auto Diff 7150; Done: May 15 2016 2:35PMComprehensive Metabolic Panel 1212; Done: May 15 2016 2: 35PMMAGNESIUM 1260; Done: May 01 2016 1:00PMMAGNESIUM 1260; Done: May 08 2016 10:30AMMAGNESIUM 1260; Done: May 15 2016 2:35PM Instructions Name Dates Details Instructions not documented Encounters Appointment; Tristan Garber M.D.|FACP|Cat,FACP|Cat,HEBERT, On 03-Apr-2016 Encounter Diagnosis: Problem not documented 16:00 Appointment; Tristan Garber M.D.|FACPMisti,FACP|Cat,FACP, On 20-Mar-2016 Encounter Diagnosis: Problem not documented 16:00 Appointment; Tristan Garber M.D.|FACP|MTreva,FACP|Cat,FACP, On 13-Mar-2016 Encounter Diagnosis: Problem not documented [...] Problem not documented 09:15 Appointment; Tristan Garber M.D.|HEBERT|Cat,KELLIEP|Cat,HEBERT, On 13-Dec-2015 Encounter Diagnosis: Problem not documented 13:15 Appointment; Tristan Garber M.D.|WILLIAN,HEBERT|Cat,HEBERT, On Encounter Diagnosis: Problem not documented 09:00 Appointment; Tristan Garber M.D.|WILLIAN,HEBERT|Cat,HEBERT, On Encounter Diagnosis: Problem not documented 11:00"
--- OUTSIDE RECORDS SUMMARY | 2017-03-10 23:46 | External Medical Summary | Summary of Care ---
:1960 Author Name Jcarlos Shelton FACP,, F Tristan Address [address] [place], [place] [id number] Care Team Providers Name Role Phone Verify PCP Primary Care Provider Unavailable Functional Status Functional Status Health Issues Name Dates Details Functional status health issues are not documented Status: Cognitive Status Health Issues Name Dates Details Cognitive status health issues are not documented Status: Problems Name Dates Details Pneumonia (486, J18.9) Status: Active Lung cancer (162.9, C34.90) Status: Active Cellulitis (682.9, L03.90) Status: Active [...]
--- OUTSIDE RECORDS SUMMARY | 2017-03-10 23:46 | External Medical Summary | Summary of Care ---
:1960 Author Name Claire Tipton APRN Address [address] Unavailable [place], [place] [id number] Care Team Providers Name Role Phone Cordell [...] TABLET DAILY. Quantity: 30 Refills: 2 Jcarlos Shelton FACP, , , Tristan F Start 06-Sep-2016 Active Allergies and Adverse Reactions Name Dates Details Penicillins (Allergy) Status: Active Past Medical History Name Dates Details History of Pericardial effusion (423.9, I31.3) Status: Resolved Procedures Procedure Dates Details History of Creation Of Pericardial Window CBC w/ Auto Diff 7150 Ordered: CBC w/ Auto Diff 7150 Ordered: AMYLASE 1250 Ordered: Comprehensive Metabolic Panel 1212 Ordered: FREE T4 3604 Ordered: Lipase 1275 Ordered: THYROID STIM. HORMONE 3602 Ordered: CT NECK/CHEST/ABD/PEL WITH ORAL AND IV [...] and children &lt ;2 years of age----- Plan of Care Name Dates Details Planned [...] Garber M.D.|WILLIAN DORSEY FACP, On September-2016 11:15 Instructions Name Dates Details Instructions not documented Encounters Appointment; Tristan Garber M.D.|FACP|M.D.,FACP|M.D.,FACP, On Encounter Diagnosis: Problem not documented 09:45 Appointment; Claire Tipton A.P.R.N. On 01-Sep-2016 Encounter Diagnosis: Problem not documented 10:15 Appointment; Claire Tipton A.P.R.N. On 25-Aug-2016 Encounter Diagnosis: Problem not documented 13:30 Appointment; Tristan Garber M.D.|FACP|M.DShirley,FACP|M.DShirley,FACP, On 24-Aug-2016 Encounter Diagnosis: Problem not documented 11:00 Appointment; Tristan Garber M.D.|FACP|M.DShirley,FACP|M.DShirley,FACP, On 27-Jul-2016 Encounter [...]
--- OUTSIDE RECORDS SUMMARY | 2017-03-10 23:47 | External Medical Summary | Summary of Care ---
[...] Panel 1212 Ordered: 27-Jul-2016 Carbohydrate Antigen 19-9 [id number] Ordered: 27-Jul-2016 THYROID STIM. HORMONE 3602 Ordered: [...] Position: Temperature 97.7 f Status: Heart Rate 83 /min Status: Comments: Location: [...] m2 Status: Results Date Description Value Details 03-Jul-2016 11:15 CBC w/ Auto Diff 7150 [...] Date: 07/24/2016 09:10 CONTRAST XC CHEST/AB/PEL 45 OR 10:22 CBC w/ Auto Diff 7150 WBC [...] Observations CBC w/ Auto Diff 7150 On 07-Aug-2016 Intent CBC w/ Auto Diff 7150 On 14-Aug-2016 Intent CBC w/ Auto Diff 7150 On 21-Aug-2016 Intent Comprehensive Metabolic Panel 1212 On 21-Aug-2016 Intent Carbohydrate Antigen 19-9 108814 On 21-Aug-2016 Intent THYROID STIM. HORMONE 3602 On 21-Aug-2016 Intent AMYLASE 1250 On 21-Aug-2016 Intent Lipase 1275 On 21-Aug-2016 Intent FREE T4 3604 On 21-Aug-2016 Intent Planned Goals not documented Planned Encounters Appointment; Provider: Poornima العلي M.D. On 19-Feb-2017 10:00 Appointment; Provider: Tristan Garber M.D.|WILLIAN,HEBERT|HEBERT Shelton, On Aug-2016 11:00 Appointment; Provider: Schedule Radiology On 07-Aug-2016 11:15 Appointment; Provider: Schedule Radiology On 07-Aug-2016 11:00 Interventions Provided Labs/Procedures/ImagingCBC w/ Auto Diff 7150; Done: Jul 31 2016 10:45AM Instructions Name Dates Details Instructions not documented Encounters Appointment; Tristan Garber M.D.|WILLIAN,WILLIAN,HEBERT, On 18-Jul-2016 Encounter Diagnosis: Problem not documented 13:15 Appointment; Claudio Ritchie M.D. On 13-Jul-2016 Encounter Diagnosis: Problem not documented 11:30 Appointment; Caridad Kuhn On 13-Jul-2016 Encounter Diagnosis: Problem not documented 11:00 Appointment; Poornima العلي M.D. On 12-Jul-2016 Encounter Diagnosis: Problem not documented 11:30 Appointment; Tristan Garber M.D.|KELLIEP|Cat,KELLIEP|Cat,KELLIEP, On 06-Jul-2016 Encounter Diagnosis: Problem not documented [...] Encounter Diagnosis: Problem not documented 14:15 Appointment; Poronima العلي M.D. On 21-Feb-2016 Encounter Diagnosis: Problem not documented 10:15 Appointment; Tristan Garber M.D.|FACP|M.D.,FACP|M.D.,FACP, On 01-Feb-2016 Encounter Diagnosis: Problem not documented 16:00 Appointment; Tristan Garber M.D.|FACP|M.D.,FACP|Cat,FACP, On 11-Jan-2016 Encounter Diagnosis: Problem not documented 10:15 Appointment; Tristan Garber M.D.|FACP|Cat,FACP|Cat,KELLIEP, On 28-Dec-2015 Encounter Diagnosis: Problem not documented 09:15 Appointment; Tristan Garber M.D.|FACP|Cat,FACP|Cat,FACP, On 13-Dec-2015 Encounter Diagnosis: Problem not documented 13:15 Appointment; Tristan Garber M.D.|FACP|Cat,FACP|Cat,FACP, On Encounter Diagnosis: Problem not documented 09:00 Appointment; Tristan Garber M.D.|FACP|Cat,FACP|Cat,FACP, On Encounter Diagnosis: Problem not documented 11:00"
--- OUTSIDE RECORDS SUMMARY | 2017-03-10 23:47 | External Medical Summary | Summary of Care ---
[...] ECG/ EKG (Specialists) Pendin21-Feb-2016 MAGNESIUM 1260 Ordered: 03-Apr-2016 CBC w/ Auto [...] m2 Status: Results Date Description Value Details 20-Mar-2016 14:06 CBC w/ Auto Diff 7150 [...] Items were attached to this order: PT, HOURLY SALES STAFF Charge MAGNESIUM 1.9 mg/dL Range: 1.8-2.4 14:23 PROTIME PANEL 7000 Comments: Items were attached to this order: PT, HOURLY SALES STAFF Charge PROTIME 35.2 secs (Above high threshold) Range: 12.0-14.9 INR 3.47 14:23 Manual Differential 7400 Comments: Items were attached to this order: PT, HOURLY SALES STAFF Charge SEGS 85 % (Above high threshold) [...] >60 ml/min Range: >60 EST GFR, NON-AFR [place]ING[place]OREAN >60 ml/min Range: >60 Comments: EST GFR [...] 0 /100 WBC PLATELET Adequate Range: Adequate -Apr-2016 10:50 CBC w/ Auto Diff 7150 WBC [...] Dates Details Planned Observations MAGNESIUM 1260 On 07-Apr-2016 Intent CBC w/ Auto Diff 7150 On 24-Apr-2016 Intent Comprehensive Metabolic Panel 1212 On 24-Apr-2016 Intent MAGNESIUM 1260 On 24-Apr-2016 Intent Planned Goals not documented Planned Encounters Appointment; Provider: Poornima العلي M.D. On 19-Feb-2017 10:00 Appointment; Provider: Tristan Garber M.D.|FACP|MTreva,FACP|MShirleyDShirley,FACP, On Apr-2016 13:00 Appointment; Provider: Schedule Radiology On 20-Apr-2016 09:00 Interventions Provided Labs/Procedures/ImagingCBC w/ Auto Diff 7150; Done: Apr 11 2016 10:20AMCBC w/ Auto Diff 7150; Done: Apr 18 2016 9:55AMMAGNESIUM 1260; Done: Apr 11 2016 10: 20AM Instructions Name Dates Details Instructions not documented Encounters Appointment; Tristan Garber M.D.|FACP|MShirleyDShirley,FACP|M.DShirley,FACP, On 20-Mar-2016 Encounter Diagnosis: Problem not documented [...] Problem not documented 16:00 Appointment; Tristan Garber M.D.|FACP|M.D.,FACP|M.D.,HEBERT, On 11-Jan-2016 Encounter Diagnosis: Problem not documented 10:15 Appointment; Tristan Garber M.D.|HEBERT|Cat,HEBERT|Cat,HEBERT, On 28-Dec-2015 Encounter Diagnosis: Problem not documented 09:15 Appointment; Tristan Garber M.D.|HEBERT|Cat,HEBERT|Cat,HEBERT, On 13-Dec-2015 Encounter Diagnosis: Problem not documented 13:15 Appointment; Tristan Garber M.D.|WILLIAN,HEBERT|Cat,KELLIEP, On Encounter Diagnosis: Problem not documented 09:00 Appointment; Tristan Garber M.D.|WILLIAN,HEBERT|Cat,HEBERT, On Encounter Diagnosis: Problem not documented 11:00"
--- OUTSIDE RECORDS SUMMARY | 2017-03-10 23:47 | External Medical Summary | Summary of Care ---
[...] Dates Details Comprehensive Metabolic Panel 1212 Ordered: 13-Dec-2015 MAGNESIUM [...] >60 ml/min Range: >60 EST GFR, NON-AFR M[place]ESE >60 ml/min Range: >60 Comments: EST GFR is reported in ml/min per 1.73 m2 of body surface area. For -Luxembour[place], please multiple result by 1.2.----- GLUCOSE 87 [...] PROTIME 13.8 secs Range: 12.0-14.9 INR 1.07 Plan of Care Name Dates Details Planned Observations MAGNESIUM 1260 On 16-Dec-2015 Intent Comprehensive Metabolic Panel 1212 On 16-Dec-2015 Intent PROTIME PANEL 7000 On 21-Dec-2015 Intent Planned Goals not documented Planned Encounters Appointment; Provider: Schedule Radiology On 27-Dec-2015 09:00 Appointment; Provider: Schedule Radiology On 27-Dec-2015 09:00 Interventions Provided Labs/Procedures/ImagingCB w/ Auto Diff 7150; Done: Dec 13 2015 1:52PMCBC w/ Auto Diff 7150; Done: Dec 28 2015 8:48AMComprehensive Metabolic Panel 1212; Done: Dec 13 2015 1:52PMPROTIME PANEL 7000; Done: Dec 13 2015 1:52PMPROTIME PANEL 7000; Done: Dec 28 2015 8:48AM Instructions Name Dates Details Instructions not documented Encounters Appointment; Tristan Garber M.D.|WILLIAN,WILLIAN,HEBERT, On Encounter Diagnosis: Problem not documented 09:00 Appointment; Tristan Garber M.D.|WILLIAN,HEBERT|Cat,HEBERT, On Encounter Diagnosis: Problem not documented 11:00"
--- OUTSIDE RECORDS SUMMARY | 2017-03-10 23:47 | External Medical Summary | Summary of Care ---
[...] R00.0) Status: Active Medications Name Dates Details Nicotine 7 MG/24HR Transdermal Patch 24 Hour APPLY 1 PATCH DAILY DIRECTED. Refills: 0 Jcarlos Ogden.Janak., FACP, , , Tristan F Start 28-Dec-2015 Active Oxycodone-Acetaminophen 10-325 MG Oral Tablet TAKE 1 TABLET 4 TIMES DAILY NEEDED FOR PAIN. Refills: 0 Jcarlos Ogden.Janak., FACP, , , Tristan F Start 28-Dec-2015 Active Potassium Chloride Nehla ER 20 MEQ Oral Tablet Extended Release TAKE 1 TABLET DAILY. Refills: 0 Jcarlos Ogden.Janak., FACP, , , Tristan F Start 28-Dec-2015 Active Metoprolol Tartrate 25 MG Oral Tablet TAKE 1 TABLET TWICE DAILY. Refills: 0 Jcarlos Ogden.Janak., FACP, , , Tristan F Start 28-Dec-2015 Active Pradaxa 150 MG Oral Capsule TAKE 1 CAPSULE TWICE DAILY. Refills: 0 Jcarlos M.Janak., FACP, , , Tristan F Start 28-Dec-2015 Active Mouthwash-AF Oral Liquid Refills: 0 Jcarlos Beard., FACP, , , Tristan F Start 28-Dec-2015 [...] 02/04/2016 10:20 CONTRAST XC CHEST/AB 45 MIN MD 07-Feb-2016 09:53 MAGNESIUM 1260 MAGNESIUM 2.2 mg/dL [...] Adequate ANISO Mod MACROCYT Slight POLYCHRO Slight Plan of Care Name Dates Details Planned Observations Planned Goals not documented Planned Encounters Appointment; Provider: Tristan Garber M.D.|WILLIAN DORSEY FACP, On Feb-2016 14:15 Appointment; Provider: Schedule Radiology On 17-Feb-2016 11:00 Appointment; Provider: Schedule Radiology On 17-Feb-2016 08:00 Instructions Name Dates Details Instructions not documented Encounters Appointment; Tristan Garber M.D.|WILLIAN,WILLIAN,HEBERT, On 01-Feb-2016 Encounter Diagnosis: Problem not documented 16:00 Appointment; Tristan Garber M.D.|WILLIAN,WILLIAN,HEBERT, On 11-Jan-2016 Encounter Diagnosis: Problem not documented 10:15 Appointment; Tristan Garber M.D.|WILLIAN,FACP|Cat,KELLIEP, On 28-Dec-2015 Encounter Diagnosis: Problem not documented 09:15 Appointment; Tristan Garber M.D.|KELLIEPMisti,KELLIEP|Cat,HEBERT, On 13-Dec-2015 Encounter Diagnosis: Problem not documented 13:15 Appointment; Tristan Garber M.D.|WILLIAN,FACP|Cat,KELLIEP, On Encounter Diagnosis: Problem not documented 09:00 Appointment; Tristan Garber M.D.|FACPHEBERT Chappell|HEBERT Shelton, On Encounter Diagnosis: Problem not documented 11:00"
--- OUTSIDE RECORDS SUMMARY | 2017-03-10 23:47 | External Medical Summary ---
:1960 Author Name GENERATED, SYSTEM Care Team Providers Name Role Phone MD CAROL, NADINE Primary Care Provider [phone] Reason For Visit Chief Complaint UPPER STERNAL MASS Social History Functional Status Vital Signs Results [...] Plan of Care Procedures Completed Procedure Code: [id number] Procedure Name: not valued, on 12/19/2015 10: 46 AMCompleted Procedure Code: [id number] Procedure Name: not valued, on 12/19/2015 10:38 AMCompleted Procedure Code: [id number] Procedure Name: not valued, on 2015 12:00 AMCompleted Procedure Code: [id number] Procedure Name: not valued, on 12:00 AM Immunizations No immunizations administered or ordered. Hospital Course Hospital Discharge Instructions Allergies, Adverse Reactions, Alerts This section is retail service representative of the current allergy information, at [...]
--- OUTSIDE RECORDS SUMMARY | 2017-03-10 23:48 | External Medical Summary | Summary of Care ---
[...] m2 Status: Results Date Description Value Details 11-Apr-2016 11:13 CBC w/ Auto Diff 7150 [...] Date: 04/20/2016 09:31 CONTRAST XC CHEST/AB/PEL 45 [place] 24-Apr-2016 13:01 CBC w/ Auto Diff 7150 [...] >60 ml/min Range: >60 EST GFR, NON-AFR [place]ICAN >60 ml/min Range: >60 Comments: EST GFR [...] Observations CBC w/ Auto Diff 7150 On 15-May-2016 Intent Comprehensive Metabolic Panel 1212 On 15-May-2016 Intent MAGNESIUM 1260 On 15-May-2016 Intent Planned Goals not documented Planned Encounters Appointment; Provider: Poornima العلي M.D. On 19-Feb-2017 10:00 Appointment; Provider: Tristan Garber M.D.|FACDori,KELLIEPHEBERT Chappell, On Apr-2016 11:00 Interventions Provided Labs/Procedures/ImagingCBC w/ Auto Diff 7150; Done: May 01 2016 1:00PMCBC w/ Auto Diff 7150; Done: May 08 2016 10:30AMMAGNESIUM 1260; Done: May 01 2016 1: 00PM Instructions Name Dates Details Instructions not documented Encounters Appointment; Tristan Garber M.D.|KELLIEPMisti,FACP|Cat,KELLIEP, On 03-Apr-2016 Encounter Diagnosis: Problem not documented 16:00 Appointment; Tristan Garber M.D.|FACP|M.DShirley,FACP|Cat,FACP, On 20-Mar-2016 Encounter Diagnosis: Problem not documented 16:00 Appointment; Tristan Garber M.D.|FACP|M.DShirley,FACP|MShirleyDShirley,FACP, On 13-Mar-2016 Encounter [...] Problem not documented 13:15 Appointment; Tristan Garber M.D.|FACP|M.DShirley,FACP|Cat,FACP, On Encounter Diagnosis: Problem not documented 09:00 Appointment; Tristan Garber M.D.|FACP|M.DShirley,FACP|MTreva,FACP, On Encounter Diagnosis: Problem not documented 11:00"
--- OUTSIDE RECORDS SUMMARY | 2017-03-10 23:48 | External Medical Summary ---
:1960 Author Name GENERATED, SYSTEM Care Team Providers Name Role Phone MD CAROL, NADINE Primary Care Provider [phone] Reason For Visit Chief Complaint CHEST PAIN Social History Functional Status Vital Signs Results [...] Plan of Care Procedures Completed Procedure Code: [id number] Procedure Name: not valued, on 12/19/2015 10: 46 AMCompleted Procedure Code: [id number] Procedure Name: not valued, on 12/19/2015 10:38 AMCompleted Procedure Code: [id number] Procedure Name: not valued, on 2015 12:00 AMCompleted Procedure Code: [id number] Procedure Name: not valued, on 12:00 AM Immunizations No immunizations administered or ordered. Hospital Course Hospital Discharge Instructions Allergies, Adverse Reactions, Alerts Penicillins causes Severe Hives. Onset 1967.Latex Allergy has not been assessed.IV Contrast Allergy has not been assessed.No Known Food Allergies. Medication Medication reconciliation has not been performed.
--- OUTSIDE RECORDS SUMMARY | 2017-03-10 23:48 | External Medical Summary | Summary of Care ---
[...] after Alimta treatment Quantity: 30 Refills: 1 KELLIE Garber M.D.P, , , Tristan F Start 28-Dec-2015 Active [...] , , Tristan F Start 06-Sep-2016 Active Prochlorperazine Maleate 10 MG Oral Tablet [...] Of Pericardial Window FREE T4 3604 Ordered: THYROID STIM. HORMONE 3602 Ordered: Immunization Name Dates Details Immunizations not [...] Location: ; Results Date Description Value Details 13-Sep-2016 13:57 CBC w/ Auto Diff 7150 [...] 0 /100 WBC PLATELET Adequate Range: Adequate [id number]-[id number] 08:34 CBC w/ Auto Diff 7150 WBC [...] >60 ml/min Range: >60 EST GFR, NON-AFR IRA[place] >60 ml/min Range: >60 Comments: EST GFR [...] >60 ml/min Range: >60 EST GFR, NON-AFR IRAQI >60 ml/min Range: >60 Comments: EST GFR [...] العلي M.D. On 19-Feb-2017 10:00 Appointment; Provider: Tirstan Garber M.D.|WILLIAN DORSEY FACP, On September-2016 11:15 Appointment; Provider: Schedule Radiology On 11:00 Interventions Provided Labs/Procedures/ImagingFREE T4 3604; To be Done: 29 Sep 2016THYROID STIM. HORMONE 3602; To be Done: 29 Sep 2016AMYLASE 1250; Done: Oct 09 2016 10:30AMCBC w/ Auto Diff 7150; Done: Oct 04 2016 12:50PMCBC w/ Auto Diff 7150; Done: Oct 09 2016 10:30AMComprehensive Metabolic Panel 1212; Done: Oct 09 2016 10:30AMLipase 1275; Done: Oct 09 2016 10:30AM Instructions Name Dates Details Instructions not documented Encounters Appointment; Tristan Garber M.D.|WILLIAN,HEBERT DORSEY, On Encounter Diagnosis: Problem not documented 09:45 Appointment; Claire Tipton A.PShirleyRShirleyNShirley On 01-Sep-2016 Encounter Diagnosis: Problem not documented 10:15 Appointment; Claire Tipton A.PShirleyRShirleyNShirley On 25-Aug-2016 Encounter Diagnosis: Problem not documented 13:30 Appointment; Tristan Garber M.D.|WILLIAN,HEBERT DORSEY, On 24-Aug-2016 Encounter Diagnosis: Problem not documented 11:00 Appointment; Tristan Garber M.D.|WILLIAN,HEBERT DORSEY, On 27-Jul-2016 Encounter Diagnosis: Problem not documented [...]
--- OUTSIDE RECORDS SUMMARY | 2017-03-10 23:48 | External Medical Summary | Summary of Care ---
[...] C34.12) Status: Active Medications Name Dates Details Nicotine [...] Release TAKE 1 TABLET DAILY. Refills: 0 Estephan M.D., FACP, , [...] >60 ml/min Range: >60 EST GFR, NON-AFR [place] CITIZEN >60 ml/min Range: >60 Comments: EST GFR [...] 02/04/2016 10:20 CONTRAST XC CHEST/AB 45 MIN NM 07-Feb-2016 09:53 MAGNESIUM 1260 MAGNESIUM 2.2 mg/dL [...] Labs/Procedures/ImagingCBC w/ Auto Diff 7150; Done: Feb 09 2016 1:33PM Instructions Name Dates Details Instructions not documented [...]
--- OUTSIDE RECORDS SUMMARY | 2017-03-10 23:48 | External Medical Summary ---
:1960 Author Name GENERATED, SYSTEM Care Team Providers Name Role Phone MD ROSALES CLARICE Primary Care Provider [phone] Reason For Visit Reason for Visit from 12/18/2015 10:40 AM:Pt Stated Reason for Adm : SVT Chief Complaint SVT Social History Social History from 12/27/2015 7:36 AM:Tobacco Use? : Current Everyday SmokerSocial History from 12/18/2015 10:40 AM:Tobacco Use? : Current Everyday Smoker Functional Status Functional Status from 12/27/2015 7:52 AM:LOC : AlertOriented To : Person,Place, Time,EventWeight Bearing Status : FullAssist Level : Independent# Assists : IndependentFunctional Status from 12/26/2015 8:26 PM:LOC : AlertOriented To : Person,Place,Time,EventWeight Bearing Status : FullAssist Level : Independent# Assists : IndependentFunctional Status from 12/26/2015 3:15 PM:# Assists : IndependentFunctional Status from 12/26/2015 8:52 AM:LOC : AlertOriented To : Person,Place,Time,EventWeight Bearing Status : FullAssist Level : Partial# Assists : 1Functional Status from 12/25/2015 8:22 PM:LOC : AlertOriented To : Person,Place,Time,EventWeight Bearing Status : FullAssist Level : Partial# Assists : 1Functional Status from 12/25/2015 11:18 AM:# Assists : 1Functional Status from 12/25/2015 7:58 AM:LOC : AlertOriented To : Person,Place,Time, EventWeight Bearing Status : FullAssist Level : Partial# Assists : 1Functional Status from 12/24/2015 7:25 PM:LOC : AlertOriented To : Person,Place,Time, EventWeight Bearing Status : FullAssist Level : Partial# Assists : 1Functional Status from 12/24/2015 8:23 AM:LOC : AlertOriented To : Person,Place,Time, EventWeight Bearing Status : FullAssist Level : Partial# Assists : 1Functional Status from 12/23/2015 7:40 PM:LOC : AlertOriented To : Person,Place,Time, EventWeight Bearing Status : FullAssist Level : Independent# Assists : 1Functional Status from 12/23/2015 1:10 PM:LOC : AlertOriented To : Person,Place, Time,EventWeight Bearing Status : FullAssist Level : Partial# Assists : 1Functional Status from 12/23/2015 11:24 AM:# Assists : 1Functional Status from 12/23/2015 7:31 AM:LOC : AlertOriented To : Person,Place,Time,EventWeight Bearing Status : PartialAssist Level : Partial# Assists : 1Functional Status from 2015 7:40 PM:LOC : AlertOriented To : Person,Place,Time,EventWeight Bearing Status : FullAssist Level : Partial# Assists : 1Functional Status from 12/22/2015 11:39 AM:# Assists : 1Functional Status from 12/22/2015 7:29 AM:LOC : AlertOriented To : Person,Place,Time,EventWeight Bearing Status : PartialAssist Level : Partial# Assists : 1Functional Status from 12/21/2015 7:42 PM:LOC : AlertOriented To : Person,Place,Time,EventWeight Bearing Status : FullAssist Level : Partial# Assists : 1Functional Status from 12/21/2015 7:20 AM:LOC : AlertOriented To : Person,Place,Time,EventWeight Bearing Status : FullAssist Level : Partial# Assists : 1Functional Status from 12/20/2015 7:30 PM:LOC : AlertOriented To : Person,Place,Time,EventWeight Bearing Status : FullAssist Level : Independent# Assists : 1Functional Status from 12/20/2015 7:45 AM:LOC : AlertOriented To : Person,Place,Time,EventWeight Bearing Status : No wt bearingAssist Level : Dependent# Assists : 2Functional Status from 12/20/2015 5: 49 AM:Weight Bearing Status : FullAssist Level : Independent# Assists : 2Functional Status from 12/19/2015 8:30 AM:LOC : DrowsyOriented To : Person,Place, Time,EventWeight Bearing Status : FullAssist Level : Independent# Assists : 1Functional Status from 12/18/2015 7:10 PM:LOC : DrowsyOriented To : Person,Place, Time,EventWeight Bearing Status : FullAssist Level : Independent# Assists : 1Functional Status from 12/18/2015 6:40 PM:# Assists : 1Functional Status from 12/17 10:40 AM:LOC : DrowsyWeight Bearing Status : FullAssist Level : Partial# Assists : 1 Vital Signs Hospital Vital Signs from 12/27/2015 7:08 AM:Height : 5/11 ft,inTemperature : 96.4 FPulse : 58Respirations : 18BP : 118/57Hospital Vital Signs from 12/27/2015 5:23 AM:Weight : 91.0/ kgHeight : 5/11 ft,inHospital Vital Signs from 12/27/2015 4:09 AM:Height : 5/11 ft,inTemperature : 97.7 FPulse : 61Respirations : 18BP : 93/56Hospital Vital Signs from 12/27/2015 12:04 AM:Height : 5/11 ft, inTemperature : 98.6 FPulse : 64Respirations : 20BP : 96/59Hospital Vital Signs from 12/26/2015 8:23 PM:Height : 5/11 ft,inPulse : 80BP : 103/59Hospital Vital Signs from 12/26/2015 3:12 PM:Height : 5/11 ft,inTemperature : 98.0 FPulse : 72Respirations : 20BP : 98/56Hospital Vital Signs from 12/26/2015 11:44 AM: Height : 5/11 ft,inTemperature : 98.1 FPulse : 65Respirations : 20BP : 91/ 58Hospital Vital Signs from 12/26/2015 8:52 AM:Heart Rate : 62Hospital Vital Signs from 12/26/2015 7:46 AM:Height : 5/11 ft,inTemperature : 98.0 FPulse : 61Respirations : 20BP : 93/56Hospital Vital Signs from 12/26/2015 2:51 AM:Weight : 91.2/ kgHeight : 5/11 ft,inTemperature : 98.2 FPulse : 65Respirations : 20BP : 108/59Hospital Vital Signs from 12/25/2015 10:52 PM:Height : 5/11 ft, inTemperature : 97.7 FPulse : 75Respirations : 20BP : 115/63Hospital Vital Signs from 12/25/2015 8:22 PM:Heart Rate : 66Hospital Vital Signs from 12/25/2015 6:45 PM:Height : 5/11 ft,inTemperature : 98.7 FPulse : 81Respirations : 20BP : 127/75Hospital Vital Signs from 12/25/2015 2:25 PM:Height : 5/11 ft, inTemperature : 97.3 FPulse : 77Respirations : 20BP : 109/66Hospital Vital Signs from 12/25/2015 10:17 AM:Height : 5/11 ft,inTemperature : 97.0 FPulse : 77Respirations : 20BP : 103/65[facility]ospital Vital Signs from 12/25/2015 7:22 AM: Height : 5/11 ft,inTemperature : 97.2 FPulse : 65Respirations : 20BP : 89/ 55Hospital Vital Signs from 12/25/2015 2:45 AM:Height : 5/11 ft,inTemperature : 96.9 FPulse : 72Respirations : 18BP : 97/53Hospital Vital Signs from 12/25/2015 1 :00 AM:Weight : 73.9/ kgHeight : 5/11 ft,inHospital Vital Signs from 12/24/2015 10 :38 PM:Height : 5/11 ft,inTemperature : 96.7 FPulse : 81Respirations : 18BP : 97 /59Hospital Vital Signs from 12/24/2015 9:06 PM:Heart Rate : 74Hospital Vital Signs from 12/24/2015 7:40 PM:Height : 5/11 ft,inTemperature : 98.8 FPulse : 118Respirations : 18BP : 129/76Hospital Vital Signs from 12/24/2015 4:13 PM: Height : 5/11 ft,inTemperature : 98.0 FPulse : 116Respirations : 18BP : 104/ 67Hospital Vital Signs from 12/24/2015 11:35 AM:Height : 5/11 ft,inTemperature : 98.1 FPulse : 116Respirations : 18BP : 117/79Hospital Vital Signs from 12/24/2015 10:06 AM:Height : 5/11 ft,inHospital Vital Signs from 12/24/2015 8:23 AM:Heart Rate : 113Hospital Vital Signs from 12/24/2015 7:39 AM:Height : 5/11 ft, inTemperature : 96.2 FPulse : 105Respirations : 22BP : 136/76Hospital Vital Signs from 12/24/2015 3:36 AM:Height : 5/11 ft,inTemperature : 98.8 FPulse : 107Respirations : 20BP : 135/82Hospital Vital Signs from 12/23/2015 11:39 PM: Height : 5/11 ft,inTemperature : 98.2 FPulse : 99Respirations : 20BP : 104/ 65Hospital Vital Signs from 12/23/2015 7:40 PM:Heart Rate : 87Hospital Vital Signs from 12/23/2015 7:31 PM:Height : 5/11 ft,inTemperature : 98.8 FPulse : 103Respirations : 20BP : 110/74Hospital Vital Signs from 12/23/2015 2:51 PM: Height : 5/11 ft,inTemperature : 97.7 FPulse : 96Respirations : 20BP : 118/ 77Hospital Vital Signs from 12/23/2015 1:10 PM:Heart Rate : 96Hospital Vital Signs from 12/23/2015 12:50 PM:Height : 5/11 ft,inTemperature : 97.0 FPulse : 113Respirations : 20BP : 122/79Hospital Vital Signs from 12/23/2015 11:00 AM:Temp : 97.6Systolic BP (mmHg) : 110Diastolic BP (mmHg) : 82Mean BP (mmHg) : 87Hospital Vital Signs from 12/23/2015 10:00 AM:Systolic BP (mmHg) : 114Diastolic BP (mmHg) : 77Mean BP (mmHg) : 90Hospital Vital Signs from 12/23/2015 9:00 AM: Systolic BP (mmHg) : 96Diastolic BP (mmHg) : 66Mean BP (mmHg) : 78O2 Saturation (%) : 89Hospital Vital Signs from 12/23/2015 8:00 AM:Systolic BP (mmHg) : 96Diastolic BP (mmHg) : 75Mean BP (mmHg) : 85O2 Saturation (%) : 95[facility]ospital Vital Signs from 12/23/2015 7:00 AM:Temp : 97.8Systolic BP (mmHg) : 99Diastolic BP (mmHg) : 74Mean BP (mmHg) : 83O2 Saturation (%) : 96Hospital Vital Signs from 12/23/2015 6:02 AM:Weight : 75.3/ kgHeight : 5/11 ft,inHospital Vital Signs from 12/23/2015 6:00 AM:Systolic BP (mmHg) : 125Diastolic BP (mmHg) : 84Mean BP ( mmHg) : 93Hospital Vital Signs from 12/23/2015 5:00 AM:Heart Rate : 74Resp Rate : 22Systolic BP (mmHg) : 103Diastolic BP (mmHg) : 75Mean BP (mmHg) : 83O2 Saturation (%) : 96[facility]ospital Vital Signs from 12/23/2015 4:00 AM:Systolic BP (mmHg ) : 114Diastolic BP (mmHg) : 76Mean BP (mmHg) : 86O2 Saturation (%) : 92Hospital Vital Signs from 12/23/2015 3:00 AM:Temp : 98.1Heart Rate : 79Resp Rate : 18Systolic BP (mmHg) : 102Diastolic BP (mmHg) : 82Mean BP (mmHg) : 90O2 Saturation (%) : 95[facility]ospital Vital Signs from 12/23/2015 2:00 AM:Systolic BP (mmHg ) : 117Diastolic BP (mmHg) : 79Mean BP (mmHg) : 96O2 Saturation (%) : 95[facility]ospital Vital Signs from 12/23/2015 1:00 AM:Heart Rate : 84Resp Rate : 20Systolic BP (mmHg) : 115Diastolic BP (mmHg) : 82Mean BP (mmHg) : 89O2 Saturation (%) : 96[facility]ospital Vital Signs from 12/23/2015 12:00 AM:Systolic BP (mmHg ) : 113Diastolic BP (mmHg) : 79Mean BP (mmHg) : 91O2 Saturation (%) : 95[facility]ospital Vital Signs from 12/22/2015 11:00 PM:Temp : 98.7Heart Rate : 90Resp Rate : 15Systolic BP (mmHg) : 110Diastolic BP (mmHg) : 72Mean BP (mmHg) : 80O2 Saturation (%) : 96[facility]ospital Vital Signs from 12/22/2015 10:00 PM:Systolic BP (mmHg ) : 100Diastolic BP (mmHg) : 77Mean BP (mmHg) : 84O2 Saturation (%) : 97[facility]ospital Vital Signs from 12/22/2015 9:00 PM:Heart Rate : 94Systolic BP (mmHg) : 91Diastolic BP (mmHg) : 73Mean BP (mmHg) : 77O2 Saturation (%) : 96[facility]ospital Vital Signs from 12/22/2015 8:30 PM:O2 Saturation (%) : 95[facility]ospital Vital Signs from 12/22/2015 8:00 PM:Heart Rate : 121Systolic BP (mmHg) : 103Diastolic BP (mmHg ) : 78Mean BP (mmHg) : 93O2 Saturation (%) : 95[facility]ospital Vital Signs from 2015 7:40 PM:Heart Rate : 110[facility]ospital Vital Signs from 12/22/2015 7:30 PM:O2 Saturation (%) : 95[facility]ospital Vital Signs from 12/22/2015 7:00 PM:Temp : 98.1Heart Rate : 110Resp Rate : 16Systolic BP (mmHg) : 107Diastolic BP (mmHg) : 78Mean BP (mmHg) : 83O2 Saturation (%) : 95[facility]ospital Vital Signs from 12/22/2015 6:00 PM: Systolic BP (mmHg) : 103Diastolic BP (mmHg) : 76Mean BP (mmHg) : 86O2 Saturation (%) : 95[facility]ospital Vital Signs from 12/22/2015 5:30 PM:O2 Saturation (%) : 95[facility]ospital Vital Signs from 12/22/2015 5:00 PM:Systolic BP (mmHg) : 100Diastolic BP (mmHg) : 79Mean BP (mmHg) : 86O2 Saturation (%) : 96[facility]ospital Vital Signs from 12/22/2015 4:30 PM:Systolic BP (mmHg) : 107Diastolic BP (mmHg) : 78Mean BP (mmHg) : 89[facility]ospital Vital Signs from 12/22/2015 3:00 PM:Temp : 98.2Systolic BP (mmHg) : 100Diastolic BP (mmHg) : 75Mean BP (mmHg) : 85O2 Saturation (%) : 95[facility]ospital Vital Signs from 12/22/2015 2:30 PM:O2 Saturation (%) : 95[facility]ospital Vital Signs from 12/22/2015 2:00 PM:Systolic BP (mmHg) : 114Diastolic BP (mmHg) : 84Mean BP (mmHg) : 101[facility]ospital Vital Signs from 2015 1:00 PM:Systolic BP (mmHg) : 108Diastolic BP (mmHg) : 74Mean BP (mmHg) : 82O2 Saturation (%) : 98[facility] Vital Signs from 12/22/2015 12:30 PM:O2 Saturation (%) : 97[facility]ospital Vital Signs from 12/22/2015 12:00 PM:Systolic BP (mmHg ) : 101Diastolic BP (mmHg) : 78Mean BP (mmHg) : 85O2 Saturation (%) : 95[facility]ospital Vital Signs from 12/22/2015 11:00 AM:Temp : 98.1Heart Rate : 85Resp Rate : 12Systolic BP (mmHg) : 90Diastolic BP (mmHg) : 69Mean BP (mmHg) : 73O2 Saturation (%) : 95[facility]ospital Vital Signs from 12/22/2015 10:30 AM:Heart Rate : 92Resp Rate : 9O2 Saturation (%) : 96[facility]ospital Vital Signs from 12/22/2015 10:00 AM :Heart Rate : 100Resp Rate : 13Systolic BP (mmHg) : 111Diastolic BP (mmHg) : 63Mean BP (mmHg) : 75O2 Saturation (%) : 91[facility]ospital Vital Signs from 12/22/2015 9: 30 AM:Heart Rate : 97Resp Rate : 18Hospital Vital Signs from 12/22/2015 9:00 AM: Heart Rate : 83Resp Rate : 15Systolic BP (mmHg) : 113Diastolic BP (mmHg) : 83Mean BP (mmHg) : 93[facility]ospital Vital Signs from 12/22/2015 8:30 AM:Heart Rate : 78Resp Rate : 16O2 Saturation (%) : 94[facility]ospital Vital Signs from 12/22/2015 8:00 AM :Heart Rate : 84Resp Rate : 11Systolic BP (mmHg) : 107Diastolic BP (mmHg) : 60Mean BP (mmHg) : 69O2 Saturation (%) : 94[facility]ospital Vital Signs from 12/22/2015 7: 30 AM:Heart Rate : 81Resp Rate : 12O2 Saturation (%) : 95[facility]ospital Vital Signs from 12/22/2015 7:00 AM:Temp : 98.3Heart Rate : 77Resp Rate : 15Systolic BP (mmHg ) : 101Diastolic BP (mmHg) : 76Mean BP (mmHg) : 86O2 Saturation (%) : 97[facility]ospital Vital Signs from 12/22/2015 6:00 AM:Heart Rate : 83Resp Rate : 11Systolic BP (mmHg) : 97Diastolic BP (mmHg) : 73Mean BP (mmHg) : 80O2 Saturation (%) : 97[facility]ospital Vital Signs from 12/22/2015 5:30 AM:Heart Rate : 94Resp Rate : 9O2 Saturation (%) : 98[facility]ospital Vital Signs from 12/22/2015 5:00 AM: Heart Rate : 82Resp Rate : 10Systolic BP (mmHg) : 98Diastolic BP (mmHg) : 71Mean BP (mmHg) : 75O2 Saturation (%) : 97[facility]ospital Vital Signs from 12/22/2015 4: 30 AM:Heart Rate : 91Resp Rate : 18O2 Saturation (%) : 98[facility]ospital Vital Signs from 12/22/2015 4:00 AM:Heart Rate : 88Resp Rate : 10Systolic BP (mmHg) : 95Diastolic BP (mmHg) : 65Mean BP (mmHg) : 78O2 Saturation (%) : 96[facility]ospital Vital Signs from 12/22/2015 3:30 AM:Heart Rate : 81Resp Rate : 9O2 Saturation (%) : 96[facility]ospital Vital Signs from 12/22/2015 3:00 AM:Temp : 98.8Heart Rate : 71Resp Rate : 10Systolic BP (mmHg) : 99Diastolic BP (mmHg) : 66Mean BP (mmHg) : 79O2 Saturation (%) : 97[facility]ospital Vital Signs from 12/22/2015 2:30 AM:Heart Rate : 84Resp Rate : 11O2 Saturation (%) : 97[facility]ospital Vital Signs from 12/22/2015 2:00 AM :Heart Rate : 90Resp Rate : 9Systolic BP (mmHg) : 95Diastolic BP (mmHg) : 65Mean BP (mmHg) : 76O2 Saturation (%) : 97[facility]ospital Vital Signs from 12/22/2015 1: 00 AM:Heart Rate : 84Resp Rate : 10Systolic BP (mmHg) : 92Diastolic BP (mmHg) : 71Mean BP (mmHg) : 79O2 Saturation (%) : 97[facility]ospital Vital Signs from 12/22/2015 12 :30 AM:Heart Rate : 84Resp Rate : 12O2 Saturation (%) : 96[facility]ospital Vital Signs from 12/22/2015 12:00 AM:Heart Rate : 86Resp Rate : 10Systolic BP (mmHg) : 97Diastolic BP (mmHg) : 71Mean BP (mmHg) : 75O2 Saturation (%) : 96[facility]ospital Vital Signs from 12/21/2015 11:30 PM:Heart Rate : 90Resp Rate : 14O2 Saturation (% ) : 96[facility]ospital Vital Signs from 12/21/2015 11:00 PM:Temp : 98.9Heart Rate : 88Resp Rate : 10Systolic BP (mmHg) : 103Diastolic BP (mmHg) : 69Mean BP (mmHg) : 74O2 Saturation (%) : 97[facility]ospital Vital Signs from 12/21/2015 10:00 PM:Heart Rate : 80Resp Rate : 13Systolic BP (mmHg) : 91Diastolic BP (mmHg) : 67Mean BP ( mmHg) : 74O2 Saturation (%) : 96[facility]ospital Vital Signs from 12/21/2015 9:30 PM: Heart Rate : 96Resp Rate : 26O2 Saturation (%) : 95[facility]ospital Vital Signs from 12/20 9:00 PM:Heart Rate : 91Resp Rate : 13Systolic BP (mmHg) : 99Diastolic BP ( mmHg) : 76Mean BP (mmHg) : 85O2 Saturation (%) : 95[facility]ospital Vital Signs from 12/20 8:30 PM:O2 Saturation (%) : 97[facility]ospital Vital Signs from 12/21/2015 8:00 PM: Systolic BP (mmHg) : 106Diastolic BP (mmHg) : 70Mean BP (mmHg) : 84O2 Saturation (%) : 94[facility]ospital Vital Signs from 12/21/2015 7:00 PM:Temp : 98.2Heart Rate : 103Systolic BP (mmHg) : 96Diastolic BP (mmHg) : 74Mean BP (mmHg) : 81O2 Saturation (%) : 86[facility]ospital Vital Signs from 12/21/2015 6:00 PM:Heart Rate : 100Systolic BP (mmHg) : 106Diastolic BP (mmHg) : 80Mean BP (mmHg) : 92O2 Saturation (%) : 92[facility]ospital Vital Signs from 12/21/2015 5:00 PM:Temp : 98.7Heart Rate : 102Systolic BP (mmHg) : 98Diastolic BP (mmHg) : 71Mean BP (mmHg) : 77O2 Saturation (%) : 88[facility]ospital Vital Signs from 12/21/2015 1:00 PM:Heart Rate : 99Resp Rate : 19Systolic BP (mmHg) : 95Diastolic BP (mmHg) : 72Mean BP (mmHg) : 80O2 Saturation (%) : 96[facility]ospital Vital Signs from 12/21/2015 12:30 PM:Heart Rate : 102Resp Rate : 17O2 Saturation (%) : 90[facility]ospital Vital Signs from 12/21/2015 12: 00 PM:Heart Rate : 91Resp Rate : 11Systolic BP (mmHg) : 87Diastolic BP (mmHg) : 66Mean BP (mmHg) : 73O2 Saturation (%) : 96[facility]ospital Vital Signs from 12/21/2015 11 :30 AM:Heart Rate : 107Resp Rate : 16Systolic BP (mmHg) : 93Diastolic BP (mmHg) : 71Mean BP (mmHg) : 83O2 Saturation (%) : 95 Results Blood Gas from 12/19/2015 12:51 PM*ARTERIAL PH7.277 L (7.350-7.450 ) *ARTERIAL UN1788.4 MM HG L (35.0-45.0 MM HG) *ART. PO269 MM HG L (80-95 MM HG) *ART. TOTAL CO210.6 mmol/L L (20.0-30.0 mmol/L) *ART. GLPLYORRATI45.0 MEQ/L L (19.0-29.0 MEQ/L) *ART. BASE EXCESS-14.2 L (-2.5-2.5 ) ART. O2 IANIFFLFIN95.6 % L (91.0-97.0 %) *PATIENT [id number] LITERS *SPECIMEN SITEART LINEChemistry from 12/26/2015 5:19 AIRPSJYS203 MMOL/L (136-145 MMOL/L) POTASSIUM4.0 MMOL/L (3.5-5.1 MMOL/L) [id number] MMOL/L (98-107 MMOL/L) AQR334.0 MMOL/L (21.0-32.0 MMOL/L) *ANION GAP9.0 MMOL/L (8.0-16.0 MMOL/L) BUN16 MG/DL (7-18 MG/DL) CREATININE0.93 MG/DL (0.70-1.30 MG/DL) *BUN/CREATININE RATIO17.2 H (9.1-17.0 ) [id number] MG/DL H (65-99 MG/DL) *GFR EST NON AFR BURUNDIAN>90 ML/MIN *GFR EST AFR AMER>90 ML/MIN CALCIUM8.7 MG/DL (8.5-10.1 MG/DL) ALBUMIN2.6 GM/DL L (3.4-5.0 GM/DL) PHOSPHORUS4.1 MG/DL (2.6-4.7 MG/DL)Chemistry from 12/25/2015 4:40 [id number] MMOL/L (136-145 MMOL/L) POTASSIUM4.3 MMOL/L (3.5-5.1 MMOL/L) [id number] MMOL/L (98-107 MMOL/L) LKS692.6 MMOL/L (21.0-32.0 MMOL/L) *ANION GAP4.4 MMOL/L L (8.0-16.0 MMOL/L) BUN12 MG/DL (7-18 MG/DL) CREATININE0.87 MG/DL (0.70-1.30 MG/DL) *BUN/CREATININE RATIO13.8 (9.1-17.0 ) ZZIFFEZ942 MG/DL H (65-99 MG/DL) *GFR EST NON AFR BURUNDIAN>90 ML/MIN *GFR EST AFR AMER>90 ML/MIN CALCIUM8.5 MG/DL (8.5-10.1 MG/DL) BILIRUBIN TOTAL1.00 MG/DL (0.20-1.00 MG/DL) TOTAL PROTEIN6.0 GM/DL L (6.4-8.2 GM/DL) ALBUMIN2.5 GM/DL L (3.4-5.0 GM/DL) *GLOBULIN3.5 GM/DL (2.3-3.5 GM/DL) *A/G RATIO0.7 MG/DL L (1.5-2.2 MG/DL) ALK PHOS76 U/L (46-116 U/L) ALT (SGPT)296 U/L H (14-59 U/L) AST (SGOT)31 U/L (15-37 U/L)Chemistry from 12/24/2015 5:04 [id number] MMOL/L (136 -145 MMOL/L) POTASSIUM3.7 MMOL/L (3.5-5.1 MMOL/L) [id number] MMOL/L (98-107 MMOL/L) ECC915.1 MMOL/L (21.0-32.0 MMOL/L) *ANION GAP6.9 MMOL/L L (8.0-16.0 MMOL/L) BUN10 MG/DL (7-18 MG/DL) CREATININE0.82 MG/DL (0.70-1.30 MG/DL) *BUN/CREATININE RATIO12.2 (9.1-17.0 ) AEEMXTR127 MG/DL H (65-99 MG/DL) *GFR EST NON AFR BURUNDIAN>90 ML/MIN *GFR EST AFR AMER>90 ML/MIN CALCIUM8.5 MG/DL (8.5-10.1 MG/DL) BILIRUBIN TOTAL1.20 MG/DL H (0.20-1.00 MG/DL) TOTAL PROTEIN6.2 GM/DL L (6.4-8.2 GM/DL) ALBUMIN2.7 GM/DL L (3.4-5.0 GM/DL) *GLOBULIN3.5 GM/DL (2.3-3.5 GM/DL) *A/G RATIO0.8 MG/DL L (1.5-2.2 MG/DL) ALK PHOS83 U/L (46-116 U/L) ALT (SGPT)435 U/L H (14-59 U/L) AST (SGOT)51 U/L H (15-37 U/L)Chemistry from 12/23/2015 4:22 [id number] MMOL/L ( 136-145 MMOL/L) POTASSIUM3.8 MMOL/L (3.5-5.1 MMOL/L) [id number] MMOL/L H (98-107 MMOL/L) WKH506.2 MMOL/L (21.0-32.0 MMOL/L) *ANION GAP3.8 MMOL/L L (8.0-16.0 MMOL/L) BUN12 MG/DL (7-18 MG/DL) CREATININE0.88 MG/DL (0.70-1.30 MG/DL) *BUN/CREATININE RATIO13.6 (9.1-17.0 ) ULSEGBS059 MG/DL H (65-99 MG/DL) *GFR EST NON AFR BURUNDIAN>90 ML/MIN *GFR EST AFR AMER>90 ML/MIN CALCIUM8.1 MG/DL L (8.5-10.1 MG/DL) BILIRUBIN TOTAL1.10 MG/DL H (0.20-1.00 MG/DL) TOTAL PROTEIN5.8 GM/DL L (6.4-8.2 GM/DL) ALBUMIN2.8 GM/DL L (3.4-5.0 GM/DL) *GLOBULIN3.0 GM/DL (2.3-3.5 GM/DL) *A/G RATIO0.9 MG/DL L (1.5-2.2 MG/DL) ALK PHOS87 U/L (46-116 U/L) ALT (SGPT)669 U/L H (14-59 U/L) AST (SGOT)95 U/L H (15-37 U/L)Chemistry from 12/22/2015 4:26 [id number] MMOL/L ( 136-145 MMOL/L) POTASSIUM3.9 MMOL/L (3.5-5.1 MMOL/L) [id number] MMOL/L H (98-107 MMOL/L) SSS364.6 MMOL/L (21.0-32.0 MMOL/L) *ANION GAP1.4 MMOL/L L (8.0-16.0 MMOL/L) BUN15 MG/DL (7-18 MG/DL) CREATININE1.01 MG/DL (0.70-1.30 MG/DL) *BUN/CREATININE RATIO14.9 (9.1-17.0 ) AWCEFLD540 MG/DL H (65-99 MG/DL) *GFR EST NON AFR EPVBRDMY31 ML/MIN *GFR EST AFR AMER>90 ML/MIN CALCIUM8.0 MG/DL L (8.5-10.1 MG/DL) BILIRUBIN TOTAL0.80 MG/DL (0.20-1.00 MG/DL) TOTAL PROTEIN5.6 GM/DL L (6.4-8.2 GM/DL) ALBUMIN1.9 GM/DL L (3.4-5.0 GM/DL) *GLOBULIN3.7 GM/DL H (2.3-3.5 GM/DL) *A/G RATIO0.5 MG/DL L (1.5-2.2 MG/DL) ALK PHOS96 U/L (46-116 U/L) ALT (SGPT)1188 U/L H (14-59 U/L) AST (SGOT)257 U/L H (15-37 U/L)Chemistry from 12/21/2015 4:40 [id number] MMOL/L ( 136-145 MMOL/L) POTASSIUM3.9 MMOL/L (3.5-5.1 MMOL/L) [id number] MMOL/L H (98-107 MMOL/L) ZJD134.2 MMOL/L (21.0-32.0 MMOL/L) *ANION GAP7.8 MMOL/L L (8.0-16.0 MMOL/L) BUN26 MG/DL H (7-18 MG/DL) CREATININE1.29 MG/DL (0.70-1.30 MG/DL) *BUN/CREATININE RATIO20.2 H (9.1-17.0 ) VVALECN53 MG/DL (65-99 MG/DL) *GFR EST NON AFR NQIXKWJW39 ML/MIN *GFR EST AFR AMER72 ML/MIN CALCIUM8.1 MG/DL L (8.5-10.1 MG/DL) BILIRUBIN TOTAL0.90 MG/DL (0.20-1.00 MG/DL) TOTAL PROTEIN6.2 GM/DL L (6.4-8.2 GM/DL) ALBUMIN2.3 GM/DL L (3.4-5.0 GM/DL) *GLOBULIN3.9 GM/DL H (2.3-3.5 GM/DL) *A/G RATIO0.6 MG/DL L (1.5-2.2 MG/DL) ALK GXGN048 U/L (46-116 U/L) ALT (SGPT)2131 U/L H (14-59 U/L) AST (SGOT)839 U/L H (15-37 U/L) MAGNESIUM2.3 MG/DL (1.8-2.4 MG/DL)Chemistry from 12/20/2015 4:10 [id number] MMOL/ L (136-145 MMOL/L) POTASSIUM4.1 MMOL/L (3.5-5.1 MMOL/L) WOKPFPSY979 MMOL/L H (98-107 MMOL/L) RFC576.0 MMOL/L (21.0-32.0 MMOL/L) *ANION GAP6.0 MMOL/L L (8.0-16.0 MMOL/L) BUN37 MG/DL H (7-18 MG/DL) CREATININE1.90 MG/DL H (0.70-1.30 MG/DL) *BUN/CREATININE RATIO19.5 H (9.1-17.0 ) JZNGSJJ83 MG/DL (65-99 MG/DL) *GFR EST NON AFR [id number] ML/MIN *GFR EST AFR AMER45 ML/MIN CALCIUM7.5 MG/DL L (8.5-10.1 MG/DL) BILIRUBIN TOTAL0.80 MG/DL (0.20-1.00 MG/DL) TOTAL PROTEIN5.2 GM/DL L (6.4-8.2 GM/DL) ALBUMIN2.0 GM/DL L (3.4-5.0 GM/DL) *GLOBULIN3.2 GM/DL (2.3-3.5 GM/DL) *A/G RATIO0.6 MG/DL L (1.5-2.2 MG/DL) ALK PHOS71 U/L (46-116 U/L) ALT (SGPT)2972 U/L H (14-59 U/L) AST (SGOT)3080 U/L H (15-37 U/L) MAGNESIUM1.9 MG/DL (1.8-2.4 MG/DL)Chemistry from 12/19/2015 4:27 [id number] MMOL/ L (136-145 MMOL/L) POTASSIUM4.7 MMOL/L (3.5-5.1 MMOL/L) PXLEDGAR672 MMOL/L (98-107 MMOL/L) LDE253.7 MMOL/L L (21.0-32.0 MMOL/L) *ANION GAP23.3 MMOL/L H (8.0-16.0 MMOL/L) BUN34 MG/DL H (7-18 MG/DL) CREATININE2.85 MG/DL H (0.70-1.30 MG/DL) *BUN/CREATININE RATIO11.9 (9.1-17.0 ) OXHOKSJ301 MG/DL H (65-99 MG/DL) *GFR EST NON AFR GGNAGFQZ63 ML/MIN *GFR EST AFR AMER27 ML/MIN CALCIUM8.6 MG/DL (8.5-10.1 MG/DL) ALBUMIN2.3 GM/DL L (3.4-5.0 GM/DL) PHOSPHORUS6.5 MG/DL H (2.6-4.7 MG/DL)Hematology from 12/27/2015 4:22 AMWBC7.3 X10e3/UL (3.6-11.2 X10e3/UL) RBC4.27 X10e6/UL (4.06-5.63 X10e6/UL) VNCVEEXLBC92.5 G/DL L (12.5-16.3 G/DL) MNFLXWATFH41.7 % L (36.7-47.1 %) *MCV83.5 FL (80.0-100.0 FL) *MCH26.9 PG L (27.0-33.0 PG) *MCHC32.2 G/DL (32.0-36.0 G/DL) *RDW17.4 % H (12.3-17.0 %) *RDWSD50.8 H (37.1-47.8 ) SFGQWONF970 X10e3/UL (159-386 X10e3/UL) *MPV8.1 FL (7.4-10.4 FL) AUTOMATED DIFFPERFORMED SEGS77.7 % *SBTUOSHFSKS82.0 % *MONOCYTES9.6 % *EOSINOPHILS2.2 % *BASOPHILS0.5 % *ABSOLUTE NEUTROPHILS5.70 X10e3/UL (1.80-7.80 X10e3/UL) *ABSOLUTE LYMPHOCYTES0.70 X10e3/UL L (1.00-3.00 X10e3/UL) *ABSOLUTE MONOCYTES0.70 X10e3/UL (0.30-1.00 X10e3/UL) *ABSOLUTE EOSINOPHILS0.20 X10e3/UL (0.00-0.50 X10e3/UL) *ABSOLUTE BASOPHILS0.00 X10e3/UL (0.00-0.20 X10e3/UL)Hematology from 12/26/2015 5 :19 AMWBC7.2 X10e3/UL (3.6-11.2 X10e3/UL) RBC4.03 X10e6/UL L (4.06-5.63 X10e6/UL) CQQBSYGWHT56.9 G/DL L (12.5-16.3 G/DL) LXWUTTBTVD46.3 % L (36.7-47.1 %) *MCV82.6 FL (80.0-100.0 FL) *MCH27.0 PG (27.0-33.0 PG) *MCHC32.6 G/DL (32.0-36.0 G/DL) *RDW16.6 % (12.3-17.0 %) *RDWSD48.1 H (37.1-47.8 ) MEDLCJCR716 X10e3/UL (159-386 X10e3/UL) *MPV8.0 FL (7.4-10.4 FL) AUTOMATED DIFFPERFORMED SEGS79.4 % *LYMPHOCYTES8.6 % *MONOCYTES9.8 % *EOSINOPHILS1.7 % *BASOPHILS0.5 % *ABSOLUTE NEUTROPHILS5.70 X10e3/UL (1.80-7.80 X10e3/UL) *ABSOLUTE LYMPHOCYTES0.60 X10e3/UL L (1.00-3.00 X10e3/UL) *ABSOLUTE MONOCYTES0.70 X10e3/UL (0.30-1.00 X10e3/UL) *ABSOLUTE EOSINOPHILS0.10 X10e3/UL (0.00-0.50 X10e3/UL) *ABSOLUTE BASOPHILS0.00 X10e3/UL (0.00-0.20 X10e3/UL)Hematology from 12/25/2015 8 :49 AMWBC6.7 X10e3/UL (3.6-11.2 X10e3/UL) RBC4.06 X10e6/UL (4.06-5.63 X10e6/UL) IKBPCQVGCA07.0 G/DL L (12.5-16.3 G/DL) AICILVRWFZ22.9 % L (36.7-47.1 %) *MCV83.4 FL (80.0-100.0 FL) *MCH27.0 PG (27.0-33.0 PG) *MCHC32.4 G/DL (32.0-36.0 G/DL) *RDW16.9 % (12.3-17.0 %) *RDWSD49.4 H (37.1-47.8 ) FUQBQSYQ835 X10e3/UL (159-386 X10e3/UL) *MPV8.2 FL (7.4-10.4 FL) AUTOMATED DIFFPERFORMED SEGS80.9 % *LYMPHOCYTES8.7 % *MONOCYTES8.2 % *EOSINOPHILS1.6 % *BASOPHILS0.6 % *ABSOLUTE NEUTROPHILS5.40 X10e3/UL (1.80-7.80 X10e3/UL) *ABSOLUTE LYMPHOCYTES0.60 X10e3/UL L (1.00-3.00 X10e3/UL) *ABSOLUTE MONOCYTES0.50 X10e3/UL (0.30-1.00 X10e3/UL) *ABSOLUTE EOSINOPHILS0.10 X10e3/UL (0.00-0.50 X10e3/UL) *ABSOLUTE BASOPHILS0.00 X10e3/UL (0.00-0.20 X10e3/UL)Hematology from 12/23/2015 4: 22 AMWBC4.4 X10e3/UL (3.6-11.2 X10e3/UL) RBC3.40 X10e6/UL L (4.06-5.63 X10e6/UL) HEMOGLOBIN9.6 G/DL L (12.5-16.3 G/DL) MEUZDEAPJD98.6 % L (36.7-47.1 %) *MCV84.1 FL (80.0-100.0 FL) *MCH28.1 PG (27.0-33.0 PG) *MCHC33.4 G/DL (32.0-36.0 G/DL) *RDW16.2 % (12.3-17.0 %) *RDWSD47.7 (37.1-47.8 ) GMQVFPQG710 X10e3/UL (159-386 X10e3/UL) *MPV7.5 FL (7.4-10.4 FL) AUTOMATED DIFFPERFORMED SEGS80.1 % *LYMPHOCYTES7.9 % *KLNPSGNGM31.0 % *EOSINOPHILS1.4 % *BASOPHILS0.6 % *ABSOLUTE NEUTROPHILS3.50 X10e3/UL (1.80-7.80 X10e3/UL) *ABSOLUTE LYMPHOCYTES0.30 X10e3/UL L (1.00-3.00 X10e3/UL) *ABSOLUTE MONOCYTES0.40 X10e3/UL (0.30-1.00 X10e3/UL) *ABSOLUTE EOSINOPHILS0.10 X10e3/UL (0.00-0.50 X10e3/UL) *ABSOLUTE BASOPHILS0.00 X10e3/UL (0.00-0.20 X10e3/UL)Hematology from 12/22/2015 4: 26 AMWBC4.3 X10e3/UL (3.6-11.2 X10e3/UL) RBC3.33 X10e6/UL L (4.06-5.63 X10e6/UL) HEMOGLOBIN9.2 G/DL L (12.5-16.3 G/DL) SMVWCYARIA20.2 % L (36.7-47.1 %) *MCV84.4 FL (80.0-100.0 FL) *MCH27.5 PG (27.0-33.0 PG) *MCHC32.6 G/DL (32.0-36.0 G/DL) *RDW16.2 % (12.3-17.0 %) *RDWSD48.1 H (37.1-47.8 ) KMHDPFCR385 X10e3/UL (159-386 X10e3/UL) *MPV7.6 FL (7.4-10.4 FL) *MANUAL DIFFPERFORMED SEGS90.0 % *BANDS1.0 % *LYMPHOCYTES3.0 % *MONOCYTES6.0 % *EOSINOPHILS0.0 % *BASOPHILS0.0 % *ABSOLUTE NEUTROPHILS3.91 X10e3/UL (1.80-7.80 X10e3/UL) *ABSOLUTE LYMPHOCYTES0.13 X10e3/UL L (1.00-3.00 X10e3/UL) *ABSOLUTE MONOCYTES0.26 X10e3/UL L (0.30-1.00 X10e3/UL) *ABSOLUTE EOSINOPHILS0.00 X10e3/UL (0.00-0.50 X10e3/UL) *ABSOLUTE BASOPHILS0.00 X10e3/UL (0.00-0.20 X10e3/UL) *NUCLEATED RBC MANUAL1.0 /100 WBC (0.0-1.0 /100 WBC) *POLYCHROMASIA1+ *HYPOCHROMASIA1+ ANISOCYTOSIS3+ *MACROCYTIC1+Hematology from 12/21/2015 4:40 AMWBC7.3 X10e3/UL (3.6-11.2 X10e3/UL) RBC3.67 X10e6/UL L (4.06-5.63 X10e6/UL) NOAUZWLTKH89.0 G/DL L (12.5-16.3 G/DL) ILHKAFOCCL62.2 % L (36.7-47.1 %) *MCV84.9 FL (80.0-100.0 FL) *MCH27.2 PG (27.0-33.0 PG) *MCHC32.0 G/DL (32.0-36.0 G/DL) *RDW16.6 % (12.3-17.0 %) *RDWSD49.4 H (37.1-47.8 ) FOANTKUE748 X10e3/UL (159-386 X10e3/UL) *MPV8.1 FL (7.4-10.4 FL) *MANUAL DIFFPERFORMED SEGS92.0 % *BANDS2.0 % *LYMPHOCYTES6.0 % *MONOCYTES0.0 % *EOSINOPHILS0.0 % *BASOPHILS0.0 % *ABSOLUTE NEUTROPHILS6.86 X10e3/UL (1.80-7.80 X10e3/UL) *ABSOLUTE LYMPHOCYTES0.44 X10e3/UL L (1.00-3.00 X10e3/UL) *ABSOLUTE MONOCYTES0.00 X10e3/UL L (0.30-1.00 X10e3/UL) *ABSOLUTE EOSINOPHILS0.00 X10e3/UL (0.00-0.50 X10e3/UL) *ABSOLUTE BASOPHILS0.00 X10e3/UL (0.00-0.20 X10e3/UL) *NUCLEATED RBC MANUAL2.0 /100 WBC H (0.0-1.0 /100 WBC) *POLYCHROMASIA1+ *HYPOCHROMASIA1+ POIKILOCYTOSIS3+Hematology from 12/20/2015 4:10 AMWBC5.6 X10e3/UL (3.6-11.2 X10e3/ UL) RBC3.14 X10e6/UL L (4.06-5.63 X10e6/UL) HEMOGLOBIN8.6 G/DL L (12.5-16.3 G/DL) VKSQBTTVFP70.5 % L (36.7-47.1 %) *MCV84.3 FL (80.0-100.0 FL) *MCH27.5 PG (27.0-33.0 PG) *MCHC32.7 G/DL (32.0-36.0 G/DL) *RDW15.7 % (12.3-17.0 %) *RDWSD46.4 (37.1-47.8 ) CNDXUHQL853 X10e3/UL (159-386 X10e3/UL) *MPV7.7 FL (7.4-10.4 FL) *MANUAL DIFFPERFORMED SEGS94.0 % *BANDS4.0 % *LYMPHOCYTES2.0 % *MONOCYTES0.0 % *EOSINOPHILS0.0 % *BASOPHILS0.0 % *ABSOLUTE NEUTROPHILS5.49 X10e3/UL (1.80-7.80 X10e3/UL) *ABSOLUTE LYMPHOCYTES0.11 X10e3/UL L (1.00-3.00 X10e3/UL) *ABSOLUTE MONOCYTES0.00 X10e3/UL L (0.30-1.00 X10e3/UL) *ABSOLUTE EOSINOPHILS0.00 X10e3/UL (0.00-0.50 X10e3/UL) *ABSOLUTE BASOPHILS0.00 X10e3/UL (0.00-0.20 X10e3/UL) *NUCLEATED RBC MANUAL2.0 /100 WBC H (0.0-1.0 /100 WBC) *POLYCHROMASIA1+ *HYPOCHROMASIA1+ *MACROCYTIC1+Hematology from 12/19/2015 1:48 PMWBC9.0 X10e3/UL (3.6-11.2 X10e3/UL) RBC3.46 X10e6/UL L (4.06-5.63 X10e6/UL) HEMOGLOBIN9.6 G/DL L (12.5-16.3 G/DL) QPCRGSGQJP02.2 % L (36.7-47.1 %) *MCV84.3 FL (80.0-100.0 FL) *MCH27.8 PG (27.0-33.0 PG) *MCHC33.0 G/DL (32.0-36.0 G/DL) *RDW16.2 % (12.3-17.0 %) *RDWSD48.6 H (37.1-47.8 ) ZUJGZCKZ878 X10e3/UL (159-386 X10e3/UL) *MPV8.2 FL (7.4-10.4 FL) AUTOMATED DIFFPERFORMED SEGS92.0 % *LYMPHOCYTES1.9 % *MONOCYTES5.8 % *EOSINOPHILS0.0 % *BASOPHILS0.3 % *ABSOLUTE NEUTROPHILS8.20 X10e3/UL H (1.80-7.80 X10e3/UL) *ABSOLUTE LYMPHOCYTES0.20 X10e3/UL L (1.00-3.00 X10e3/UL) *ABSOLUTE MONOCYTES0.50 X10e3/UL (0.30-1.00 X10e3/UL) *ABSOLUTE EOSINOPHILS0.00 X10e3/UL (0.00-0.50 X10e3/UL) *ABSOLUTE BASOPHILS0.00 X10e3/UL (0.00-0.20 X10e3/UL)Hematology from 12/19/2015 4: 27 AMWBC11.2 X10e3/UL (3.6-11.2 X10e3/UL) RBC4.34 X10e6/UL (4.06-5.63 X10e6/UL) MSJGMZTXOC23.6 G/DL L (12.5-16.3 G/DL) FSZDNHHOMF40.9 % (36.7-47.1 %) *MCV87.2 FL (80.0-100.0 FL) *MCH26.8 PG L (27.0-33.0 PG) *MCHC30.7 G/DL L (32.0-36.0 G/DL) *RDW16.2 % (12.3-17.0 %) *RDWSD50.3 H (37.1-47.8 ) QWMKASNW131 X10e3/UL H (159-386 X10e3/UL) *MPV8.6 FL (7.4-10.4 FL) AUTOMATED DIFFPERFORMED SEGS86.4 % *LYMPHOCYTES5.8 % *MONOCYTES7.6 % *EOSINOPHILS0.0 % *BASOPHILS0.2 % *ABSOLUTE NEUTROPHILS9.70 X10e3/UL H (1.80-7.80 X10e3/UL) *ABSOLUTE LYMPHOCYTES0.70 X10e3/UL L (1.00-3.00 X10e3/UL) *ABSOLUTE MONOCYTES0.80 X10e3/UL (0.30-1.00 X10e3/UL) *ABSOLUTE EOSINOPHILS0.00 X10e3/UL (0.00-0.50 X10e3/UL) *ABSOLUTE BASOPHILS0.00 X10e3/UL (0.00-0.20 X10e3/UL)Coagulation from 12/22/2015 4 :26 AM*PROTHROMBIN TIME10.8 SECONDS (9.4-11.5 SECONDS) *INR1.1 (0.9-1.1 )Coagulation from 12/21/2015 4:40 AM*PROTHROMBIN TIME11.9 SECONDS H (9.4-11.5 SECONDS) *INR1.2 H (0.9-1.1 )Coagulation from 12/20/2015 4:10 AM*PROTHROMBIN TIME18.3 SECONDS H (9.4-11.5 SECONDS) *INR1.8 H (0.9-1.1 )Coagulation from 12/19/2015 4:27 AM*PROTHROMBIN PJAF242.2 SECONDS H (9.4-11.5 SECONDS) *INR10.1 HH (0.9-1.1 ) PARTIAL THROMBOPLASTIN TIME52.4 SECONDS H (23.0-31.0 SECONDS)Coagulation from 12/18/2015 12:46 PM*PROTHROMBIN TIME62.2 SECONDS H (9.4-11.5 SECONDS) *INR6.0 HH (0.9-1.1 )Body Fluids from 12/19/2015 11:00 AM*CYTOLOGY - NON-GYNREC' D IN LAB *CYTOLOGY SOURCEPERICARDIAL *CYTOLOGY SITENOT APPLICABLEBlood Bank from 12/19/2015 9:33 AMFRESH FR [id number] transfused not required [id number] transfused not requiredPathology from 12/19/2015 12:00 AM*PATH SOURCE PERICARDIAL FLUID-CYTOLOGY DIAGNOSIS: NUMEROUS CLUSTERS OF MALIGNANT CELLS PRESENT. FINDINGS COMPATIBLE WITH MALIGNANT MESOTHELIOMA. ([facility]) SIGNATURE VIJAYA MACIEL M.D. , PATHOLOGIST (CASE SIGNED 12/23/2015 AT 12:02) GROSS EXAMINATION: 1. RECEIVED IS 800 ML BLOODY FLUID. FOUR SMEARS, 3 CELL BLOCKS ARE PREPARED. ([facility]) PHYSICIANS JOSÉ HASTINGS// NELLIE BORGES// Poornima OZUNA/[phone] CHARGE CODE CPT COUNT [id number] 1 DIVIDER *PATH SOURCE PERICARDIAL BX-ROUTINE FINAL DIAGNOSIS PERICARDIUM (BIOPSY): NON SMALL CELL MALIGNANT INFILTRATE. FINDINGS FAVOR MALIGNANT MESOTHELIOMA. ([facility]]) SIGNATURE VIJAYA MACIEL M.D. , PATHOLOGIST (CASE SIGNED 12/23/2015 AT 12:03) GROSS EXAMINATION: 1. THE SPECIMEN IS RECEIVED IN FORMALIN IN A SINGLE CONTAINER LABELED WITH THE PATIENT'S NAME, DESIGNATED "PERICARDIAL TISSUE" AND CONSISTS OF VILLARREAL-PINK MEMBRANOUS TISSUE (4.3 X 2.5 X 0.3 CM) AND ATTACHED ADIPOSE TISSUE. NO MASSES ARE IDENTIFIED AND REGULATORY AFFAIRS COORDINATOR SECTIONS ARE SUBMITTED IN "1A - 1D". ([place]) MICROSCOPIC EXAMINATION: BIOPSY OF PERICARDIUM REVEALS AN EXTENSIVE MALIGNANT INFILTRATE. THERE ARE CLUSTERS OF MALIGNANT CELLS WITH HYPERCHROMATIC NUCLEI AND MODERATE CYTOPLASM. IMMUNOHISTOCHEMICAL ANALYSIS REVEALS MALIGNANT CELLS SHOW STRONG POSITIVE REACTION TO CYTOKERATIN 7 WITH A NEGATIVE CYTOKERATIN 20 REACTION. THERE ARE ALSO NEGATIVE REACTIONS FOR TTF-1, CDX2, PSA, NAPSIN A, AND CK5/6. THERE ARE STRONG POSITIVE REACTIONS WITH CALRETININ. THERE ARE NEGATIVE REACTIONS WITH WT1. THESE FINDINGS ARE NOT ENTIRELY SPECIFIC. THEY FAVOR A DIAGNOSIS OF MALIGNANT MESOTHELIOMA AND RULE AGAINST THE DIAGNOSIS OF METASTATIC CARCINOMA OF LUNG ORIGIN. CLINICAL CORRELATION WITH ANY PREVIOUS KNOWN MALIGNANCY IS RECOMMENDED. PHYSICIANS JOSÉ HASTINGS// NELLIE BORGES// Poornima OZUNA/[phone] CHARGE CODE CPT COUNT [id number] 7 Echocardiology from 12/19/2015 12:00 AMEchocardiogramSee also the report from this dateDX Radiology from 12/19/2015 12:30 PMCHEST 1 VIEWHistory: attempted central line placement, check for pneumothorax Priors: 12/18/2015 Findings: There has been development of moderate perihilar lower lobe pulmonary edema since the prior study. There is a left-sided chest tube in good position. No pneumothorax or pleural effusions identified Impression: Development of moderate pulmonary edema. No evidence pneumothorax. Electronically signed by: Otilio Bateman MD Dictated: 12/19/2015 12:41 Problems Encounter Diagnosis Fall Risk Status:Active.History of Deep Vein Thrombosis Status:Active.History of Pulmonary Embolus Status:Active.Infection Risk Status:Active.Mobility Impairment Status:Active.Non-Small Cell Lung Cancer Status:Active.Nutritional Deficiency Status:Active.Skin Integrity Impairment Risk Status: Active.Supraventricular Tachycardia Status:Active.Additional Problems Acute Pain Comment:Problem resolved by [facility] Workflow upon Discharge, Status: Resolved.Acute Pain Comment:Problem resolved by [facility] Workflow upon Discharge , Status:Resolved.Cellulitis of Trunk Comment:Problem resolved by [facility] Workflow upon Discharge, Status:Resolved.Deep Venous Thrombosis Comment:Problem resolved by [facility] Workflow upon Discharge, Status:Resolved.Tobacco Use Comment :Problem resolved by [facility] Workflow upon Discharge, Status:Resolved. Encounters Encounter Diagnosis Fall Risk Status:Active.History of Deep Vein Thrombosis Status:Active.History of Pulmonary Embolus Status:Active.Infection Risk Status:Active.Mobility Impairment Status:Active.Non-Small Cell Lung Cancer Status:Active.Nutritional Deficiency Status:Active.Skin Integrity Impairment Risk Status: Active.Supraventricular Tachycardia Status:Active. Plan of Care Follow-up Appointments from 12/27/2015 7:36 AM:#1 Office appointment: : Dr. Rosales in 2 days#2 Office appointment: : Dr. Garber - TodayAddress # 2 : [facility]: [address], [place]- or [phone] Plan from 12/24/2015 1:29 PM:Care Management Note :Patient's CT showed 210 mls in a [address] Borges rounded this am, and plans no leaving CT in over the weekend, and if on Sunday output remains high will place a Pleurx drain. Patient is informed of plan from Dr. Borges. CM will continue to follow.ALT 435, AST 51, Alb 2.7, Hgb 9.696.2, 105, 22, 136/76, 95% 2L NCTreatment Plan from 12/23/2015 8:48 AM:Care Management Note : Patient remains in a medical bed at this time. Chest tube has had 340ML out in last 24hrs and will remain in lace. Pradaxa has been certified with MD Aleman and will be covered at no cost for the Patient. Care Management will continue to follow.Treatment Plan from 12/23/2015 8:26 AM:Care Management Note :SW consulted with Pt to discuss Pt's discharge plan. Pt plans to return home with his daughter, who resides in [place]. Pt denies the need for services; Daughter asked about in-home, private duty services to manage Pt's ADLs, and reports that she would be resistant to a "stranger coming into my dad's house." Pt reported that he would like his daughter to be his paid caregiver. SW educated Pt about TCM services provided through Medicaid and encouraged Pt to follow up with a case management director to access in-home services. Pt denies further discharge needs at this time.Treatment Plan from 12/21/2015 10:15 AM:Care Management Note : Met with patient to discuss discharge planning. I have met with patient in past during last hospitalization. At that time info was given on [facility] and [facility]. He was uninsured at the time and having difficulty obtaining medications/resources.Since then, patient has been approved for medicaid. He states there are no barriers with obtaining medications or accessing health care. He lives alone and his sister and friends are support system.He denies need for home health or other supportive services at this time. My contact information provided if needs arise.Treatment Plan from 12/21/2015 8:35 AM:Care Management Note : Patient is POD #1 from pericardial window with chest tube placement. VSS on 4L/NC and ST on telemetry. Care Management will continue to follow. Pradaxa has been initiated and will need to be precerted with Insurance provider.Treatment Plan from 12/19/2015 9:13 AM:Care Management Note : Patient admitted under inpatient status to the ICU [facility] et shortness of breath. Patient w/ NSCL diagnosis et undergoing radiation treatment. He is scheduled to begin chemo on 12/27. Found to be in SVT @ a rate of 200. Patient received Adenosine IV et cardioverted after 2 shocks. Patient then hypotensive w/ BP 76/57. B/C 23/2 INR up to 10.1 today. POC includes IV fluids @ 100 cc/hr, Amiodarone gtt, Dilaudid IV PRN, Zofran PRN et cardiology consult. Vitamin K given for critical INR. Patient meets medical necessity for an inpatient admission w/ an anticipated LOS > 2 midnights. Procedures No relevant procedures performed. Immunizations No immunizations administered or ordered. Hospital Course Hospital Discharge Instructions How to care for yourself at home from 12/27/2015 7:36 AM:Discharge Activity : Activity as tolerated,May ShowerDischarge Diet : As before hospitalization,Diet as toleratedCall your doctor if: : Fever over 101 F or severe chills,Chest pain or other unexplained symptoms,Tingling or numbness develops,A sudden increase or decrease in weight,You have persistent or worsening symptoms,If you have Heart Failure and you gain 3 pounds within 1 week or your symptoms worsen. ( Weigh at home tomorrow morning)Specific Discharge Teaching Instructions provided : : YesSpecific Discharge Teaching Instructions Reviewed: : Stop SmokingDischarge on Warfarin : No Allergies, Adverse Reactions, Alerts Penicillins causes Severe Hives. Onset 1967.No Latex Allergy.No IV Contrast Allergy.No Known Food Allergies. Medication It is the responsibility of the patient or patient business services sales representative to confirm the list of medicationswith either the patient's personal care provider or the patient's follow-up care provider to ensure the patient has an appropriate list of medications to take at home. Discharge medicationsNew medicationsdabigatran etexilate (Pradaxa) 150 mg Capsule, Ordered By: RADHA A OMAR, PA Directions: 1 capsule oral twice a day Additional Instructions: DO NOT BREAK, CHEW, OR OPEN CAPSULES. MAGIC MOUTHWASH (PRED,DOXY,NYST,BISMTH,LID,CARINA) 10 ML=0.17 BOTTLE Oral [facility] First Dose Now, Clinician Dir:PREDNISONE=7MG,LID VISC=1.1ML, NYSTATIN=1.66ML, BENDRYL=4.72ML BISMUTH SUB=2.5ML,DOXY=20MG Directions: four times daily after meals and at bedtime Additional Instructions: PREDNISONE=7MG,LID VISC=1.1ML, NYSTATIN=1.66ML,BENDRYL= 4.72ML BISMUTH SUB=2.5ML,DOXY=20MG metoprolol tartrate 25 mg Tablet, Ordered By: JOSÉ HASTINGS MD Directions: 1 tablet oral twice a day every morning and at bedtime Continued medicationsnicotine 7 mg/24 hour patch 24 hour, Ordered By: JOSÉ HASTINGS MD Directions: 1 patch transdermal daily oxyCODONE-acetaminophen 10 mg-325 mg Tablet, Ordered By: JOSÉ HASTINGS MD Directions: 1 tablet oral every four hours PRN pain potassium chloride 20 mEq tablet,ER particles/crystals, Ordered By: JOSÉ HASTINGS MD Directions: 1 tablet oral daily Additional Instructions: for 3 days started 2 days ago Stopped medicationswarfarin (Coumadin) 7.5 mg Tablet Directions: 1 tablet oral daily Additional Instructions: hold for INR > 3.0
--- OUTSIDE RECORDS SUMMARY | 2017-03-10 23:49 | External Medical Summary ---
:1960 Author Name GENERATED, SYSTEM Care Team Providers Name Role Phone MD CAROL, NADINE Primary Care Provider [phone] Reason For Visit Chief Complaint R51 Social History Functional Status Vital Signs Results [...] Plan of Care Procedures Completed Procedure Code: [id number] Procedure Name: not valued, on 12/19/2015 10: 46 AMCompleted Procedure Code: [id number] Procedure Name: not valued, on 12/19/2015 10:38 AMCompleted Procedure Code: [id number] Procedure Name: not valued, on 2015 12:00 AMCompleted Procedure Code: [id number] Procedure Name: not valued, on 12:00 AM Immunizations No immunizations administered or ordered. Hospital Course Hospital Discharge Instructions Allergies, Adverse Reactions, Alerts Penicillins causes Severe Hives. Onset 1967.Latex Allergy has not been assessed.IV Contrast Allergy has not been assessed.No Known Food Allergies. Medication Medication reconciliation has not been performed.
--- OUTSIDE RECORDS SUMMARY | 2017-03-10 23:49 | External Medical Summary | Summary of Care ---
[...] Cancer related pain (338.3, G89.3) Status: Active Malignant neoplasm of upper lobe [...] >60 ml/min Range: >60 EST GFR, NON-AFR [place] >60 ml/min Range: >60 Comments: EST GFR [...] >60 ml/min Range: >60 EST GFR, NON-AFR [place] >60 ml/min Range: >60 Comments: EST GFR [...] Appointment; Provider: Tristan Garber M.D.|WILLIAN,WILLIAN,HEBERT, On October-2016 11:30 Instructions Name Dates Details Instructions not documented Encounters Appointment; Estephan, Tristan, M.D.|FACP|M.D.,FACP|M.D.,FACP, On Encounter Diagnosis: Problem not documented 10:15 Appointment; Tristan Garber M.D.|FACP|M.DShirley,FACP|M.D.,FACP, On Encounter Diagnosis: Problem not documented 09:45 Appointment; Claire Tipton A.P.R.N. On 01-Sep-2016 Encounter Diagnosis: Problem not documented 10:15 Appointment; Claire Tipton A.P.R.N. On 25-Aug-2016 Encounter Diagnosis: Problem not documented 13:30 Appointment; Tristan Garber M.D.|FACP|M.DShirley,FACP|MShirleyDShirley,FACP, On 24-Aug-2016 Encounter Diagnosis: Problem not documented 11:00 Appointment; Tristan Garber M.D.|FACP|M.D.,FACP|M.DhSirley,FACP, On 27-Jul-2016 Encounter Diagnosis: Problem not documented 11:00 Appointment; Tristan Garber M.D.|FACP|M.D.,FACP|M.DShirley,FACP, On 18-Jul-2016 Encounter Diagnosis: Problem not documented 13:15 Appointment; Claudio Ritchie M.D. On 13-Jul-2016 Encounter Diagnosis: Problem not documented 11:30 Appointment; Caridad Kuhn On 13-Jul-2016 Encounter Diagnosis: Problem not documented 11:00 Appointment; Poornima العلي M.D. On 12-Jul-2016 Encounter Diagnosis: Problem not documented 11:30 Appointment; Tristan Garber M.D.|FACP|M.D.,FACP|M.DShirley,FACP, On 06-Jul-2016 Encounter Diagnosis: Problem not documented [...] Problem not documented 09:15 Appointment; Tristan Garber M.D.|FACP|M.DShirley,FACP|MShirleyD.,HEBERT, On 13-Dec-2015 Encounter Diagnosis: Problem not documented 13:15 Appointment; Tristan Garber M.D.|WILLIAN,HEBERT|Cat,HEBERT, On Encounter Diagnosis: Problem not documented 09:00 Appointment; Tristan Garber M.D.|WILLIAN,HEBERT|Cat,HEBERT, On Encounter Diagnosis: Problem not documented 11:00"
--- OUTSIDE RECORDS SUMMARY | 2017-03-10 23:49 | External Medical Summary | Summary of Care ---
[...] 24-Aug-2016 THYROID STIM. HORMONE 3602 Ordered: 24-Aug-2016 Immunization Name Dates Details Immunizations not documented [...] >60 ml/min Range: >60 EST GFR, NON-AFR [place] >60 ml/min Range: >60 Comments: EST GFR [...] Details Planned Observations FREE T4 3604 On Intent THYROID STIM. HORMONE 3602 On Intent Planned Goals not documented Planned Encounters Appointment; Provider: Poornima العلي M.D. On 19-Feb-2017 10:00 Interventions Provided Labs/Procedures/ImagingAMYLASE 1250; Done: Sep 27 2016 8:10AMCBC w/ Auto Diff 7150; Done: Sep 20 2016 12:45PMCBC w/ Auto Diff 7150; Done: Sep 27 2016 8: 10AMCBC w/ Auto Diff 7150; Done: Aug 30 2016 1:20PMCBC w/ Auto Diff 7150; Done : Sep 06 2016 8:40AMCBC w/ Auto Diff 7150; Done: Sep 13 2016 1: 30PMComprehensive Metabolic Panel 1212; Done: Sep 27 2016 8:10AMLipase 1275; Done: Sep 27 2016 8:10AMMAGNESIUM 1260; Done: Sep 27 2016 8:10AM Instructions Name Dates Details Instructions not documented Encounters Appointment; Tristan Garber M.D.|FACP|M.DShirley,FACP|MTreva,FACP, On 27-Jul-2016 Encounter Diagnosis: Problem not documented 11:00 Appointment; Tristan Garber M.D.|FACP|M.DShirley,FACP|MTreva,FACP, On 18-Jul-2016 Encounter Diagnosis: Problem not documented [...] Problem not documented 13:15 Appointment; Tristan Garber M.D.|FACP|Cat,FACP|Cat,KELLIEP, On Encounter Diagnosis: Problem not documented 09:00 Appointment; Tristan Garber M.D.|FACPMisti,KELLIEP|Cat,HEBERT, On Encounter Diagnosis: Problem not documented 11:00"
--- OUTSIDE RECORDS SUMMARY | 2017-03-10 23:49 | External Medical Summary | Summary of Care ---
[...] R06.00) Status: Active Medications Name Dates Details Mouthwash-AF Oral Liquid Refills: 0 Jcarlos Shelton, KELLIEP, , , [...] , , Tristan F Start 29-Dec-2015 Active Pradaxa 150 MG Oral Capsule TAKE 1 CAPSULE TWICE DAILY. Refills: 0 Jcarlos Shelton, FACP, , , [...] , , Tristan F Start 28-Dec-2015 Active Nicotine 7 MG/24HR Transdermal Patch 24 Hour APPLY 1 PATCH DAILY DIRECTED. Refills: 0 Estephan M.D., FACP, , , Tristan F Start 28-Dec-2015 Active Allergies and Adverse Reactions Name Dates Details Penicillins (Allergy) Status: Active Procedures Procedure Dates Details PROTIME PANEL 7000 Ordered: 13-Dec-2015 CBC w/ Auto Diff 7150 Ordered: 28-Dec-2015 MAGNESIUM 1260 Ordered: 28-Dec-2015 MAGNESIUM 1260 Ordered: 28-Dec-2015 CBC w/ Auto Diff 7150 Ordered: 28-Dec-2015 Comprehensive Metabolic Panel 1212 Ordered: 28-Dec-2015 CT HEAD WITHOUT AND WITH IV CONTRAST Ordered: 13-Dec-2015 CT NECK/CHEST/AB WITH ORAL AND IV CONTRAST Ordered: 13-Dec-2015 BONE SCAN WHOLE BODY Ordered: 13-Dec-2015 Immunization Name Dates Details Immunizations not documented Social History Smoking Status Name Dates Details Unknown if ever smoked Vital Signs Date Test Result Details 28-Dec-2015 09:34 BP Systolic 90 mm[Hg] Status: [...] >60 ml/min Range: >60 EST GFR, NON-AFR FINNISH >60 ml/min Range: >60 Comments: EST GFR is reported in ml/min per 1.73 m2 of body surface area. For -Malaysian, please multiple result by 1.2.----- GLUCOSE 87 [...] >60 ml/min Range: >60 EST GFR, NON-AFR FINNISH >60 ml/min Range: >60 Comments: EST GFR [...] MAGNESIUM 1260 MAGNESIUM 2.1 mg/dL Range: 1.8-2.4 Plan of Care Name Dates Details Planned Observations CBC w/ Auto Diff 7150 On 05-Jan-2016 Intent MAGNESIUM 1260 On 05-Jan-2016 Intent MAGNESIUM 1260 On 31-Dec-2015 Intent CBC w/ Auto Diff 7150 On 31-Dec-2015 Intent Comprehensive Metabolic Panel 1212 On 31-Dec-2015 Intent Planned Goals not documented Interventions Provided Medication ChangesDexamethasone 4 MG Oral Tablet - StartFolic Acid 1 MG Oral Tablet - Start Instructions Name Dates Details Instructions not documented Encounters Appointment; Tristan Garber M.D.|WILLIAN,WILLIAN,HEBERT, On 13-Dec-2015 Encounter Diagnosis: Problem not documented 13:15 Appointment; Tristan Garber M.D.|WILLIAN,WILLIAN,HEBERT, On Encounter Diagnosis: Problem not documented 09:00 Appointment; Tristan Garber M.D.|WILLIAN,WILLIAN,HEBERT, On Encounter Diagnosis: Problem not documented 11:00"
--- OUTSIDE RECORDS SUMMARY | 2017-03-10 23:49 | External Medical Summary | Summary of Care ---
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 Charge MAGNESIUM 1.9 mg/dL Range: 1.8-2.4 14:23 PROTIME PANEL 7000 Comments: Items were attached to this order: PT, AIRCRAFT SKIN BURNISHER Charge PROTIME 35.2 secs (Above high threshold) Range: 12.0-14.9 INR 3.47 14:23 Manual Differential 7400 Comments: Items were attached to this order: PT, AIRCRAFT SKIN BURNISHER Charge SEGS 85 % (Above high threshold) [...] Dates Details Planned Observations MAGNESIUM 1260 On 16-Mar-2016 Intent CBC w/ Auto Diff 7150 On 16-Mar-2016 Intent MAGNESIUM 1260 On 03-Apr-2016 Intent CBC [...] Auto Diff 7150; Done: Mar 20 2016 1: 40PMMAGNESIUM 1260; Done: Mar 20 2016 1:40PM Instructions Name Dates Details Instructions not documented [...] documented 10:15 Appointment; Tristan Garber M.D.|FACP|MShirleyDShirley,FACP|MTreva,FACP, On 28-Dec-2015 Encounter Diagnosis: Problem not documented 09:15 Appointment; Tristan Garber M.D.|FACP|MShirleyDShirley,FACP|MTreva,FACP, On 13-Dec-2015 Encounter Diagnosis: Problem not documented 13:15 Appointment; Tristan Garber M.D.|FACP|M.DShirley,FACP|MTreva,FACP, On Encounter Diagnosis: Problem not documented 09:00 Appointment; Tristan Garber M.D.|FACP|M.DShirley,FACP|MTreva,FACP, On Encounter Diagnosis: Problem not documented 11:00"
--- OUTSIDE RECORDS SUMMARY | 2017-03-10 23:50 | External Medical Summary | Summary of Care ---
[...] >60 ml/min Range: >60 EST GFR, NON-AFR ZAMBIAN >60 ml/min Range: >60 Comments: EST GFR [...] Diff 7150 Comments: Critical result called to [facility] by Sigrid Taylor on 02/24/2016 [...] >60 ml/min Range: >60 EST GFR, NON-AFR ZAMBIAN >60 ml/min Range: >60 Comments: EST GFR [...] Items were attached to this order: PT, SAMPLE SUPERVISOR Charge MAGNESIUM 1.9 mg/dL Range: 1.8-2.4 14:23 PROTIME PANEL 7000 Comments: Items were attached to this order: PT, SAMPLE SUPERVISOR Charge PROTIME 35.2 secs (Above high threshold) Range: 12.0-14.9 INR 3.47 14:23 Manual Differential 7400 Comments: Items were attached to this order: PT, SAMPLE SUPERVISOR Charge SEGS 85 % (Above high threshold) [...] Dates Details Planned Observations MAGNESIUM 1260 On 27-Mar-2016 Intent CBC w/ Auto Diff 7150 On 27-Mar-2016 Intent MAGNESIUM 1260 On 03-Apr-2016 Intent CBC w/ Auto Diff 7150 On 03-Apr-2016 Intent Comprehensive Metabolic Panel 1212 On 03-Apr-2016 Intent Planned Goals not documented Planned Encounters Appointment; Provider: Poornima العلي M.D. On 19-Feb-2017 10:00 Appointment; Provider: Tristan Garber M.D.|FACP|MShirleyDShirley,FACP|Cat,FACP, On Mar-2016 13:30 Appointment; Provider: Tristan Garber M.D.|FACP|MTreva,FACP|Cat,KELLIEP, On Mar-2016 16:00 Interventions Provided Labs/Procedures/ImagingCBC w/ Auto Diff [...] Problem not documented 09:15 Appointment; Tristan Garber M.D.|FACP|M.DShirley,FACP|MShirleyDShirley,FACP, On 13-Dec-2015 Encounter Diagnosis: Problem not documented 13:15 Appointment; Tristan Garber M.D.|FACP|M.DShirley,FACP|MTreva,FACP, On Encounter Diagnosis: Problem not documented 09:00 Appointment; Tristan Garber M.D.|FACP|M.DShirley,FACP|MShirleyDShirley,FACP, On Encounter Diagnosis: Problem not documented 11:00"
--- OUTSIDE RECORDS SUMMARY | 2017-03-10 23:50 | External Medical Summary | Summary of Care ---
[...] Take 1 tablet twice daily Refills: 0 Start Active Allergies and Adverse Reactions Name Dates Details Penicillins (Allergy) Status: Active Procedures Procedure Dates Details Procedures not documented Immunization Name Dates Details Immunizations not documented Social History Smoking Status Name Dates Details Unknown if ever smoked Vital Signs Date Test Result Details No Known Vitals to report Results Date Description Value Details Results not documented Plan of Care Name Dates Details Planned Observations Planned Goals not documented Instructions Name Dates Details Instructions not documented Encounters Appointment; Tristan Garber M.D.|WILLIAN,WILLIAN,HEBERT, On Encounter Diagnosis: Problem not documented 11:00"
--- OUTSIDE RECORDS SUMMARY | 2017-03-10 23:50 | External Medical Summary | Summary of Care ---
[...] for colon cancer (V76.51, Z12.11) Status: Active Medications Name Dates Details Metoprolol [...] Pericardial Window Comprehensive Metabolic Panel 1212 Ordered: 12-Jun-2016 MAGNESIUM [...] m2 Status: Results Date Description Value Details 20-Feb-2017 09:46 CBC w/ Auto Diff 7150 Comments: [...] >60 ml/min Range: >60 EST GFR, NON-AFR ROMANIAN >60 ml/min Range: >60 Comments: EST GFR [...] of Care Name Dates Details Planned Observations Comprehensive Metabolic Panel 1212 On 22-Jun-2016 Intent MAGNESIUM 1260 On 22-Jun-2016 Intent AMYLASE 1250 On 22-Jun-2016 Intent Lipase 1275 On 22-Jun-2016 Intent THYROID STIM. HORMONE 3602 On 22-Jun-2016 Intent FREE T4 3604 On 22-Jun-2016 Intent Planned Goals not documented Planned Encounters Appointment; Provider: Poornima العلي M.D. On 19-Feb-2017 10:00 Appointment; Provider: Claudio Ritchie M.D. On 13-Jul-2016 11:30 Appointment; Provider: Caridad Kuhn On 13-Jul-2016 11:00 Appointment; Provider: Tristan Garber M.D.|FACPMisti,FACPMisti,HEBERT, On Jun-2016 15:15 Interventions Provided Labs/Procedures/ImagingCBC w/ Auto Diff 7150; Done: Jun 19 2016 9:55AMCBC w/ Auto Diff 7150; Done: Jun 26 2016 9:45AMCBC w/ Auto Diff 7150; Done: Jul 03 2016 10:50AM Instructions Name Dates Details Instructions not documented Encounters Appointment; Tristan Garber M.D.|FACP|MTreva,FACP|Cat,KELLIEP, On 16-May-2016 Encounter Diagnosis: Problem not documented 11:00 Appointment; Tristan Garber M.D.|FACP|M.DShirley,FACP|Cat,FACP, On 01-May-2016 Encounter Diagnosis: Problem not documented 13:30 Appointment; Tristan Garber M.D.|FACP|MTreva,FACP|Cat,FACP, On 24-Apr-2016 Encounter Diagnosis: Problem not documented [...]
--- OUTSIDE RECORDS SUMMARY | 2017-03-10 23:50 | External Medical Summary | Summary of Care ---
[...] m2 Status: Results Date Description Value Details 08-May-2016 10:50 CBC w/ Auto Diff 7150 [...] >60 ml/min Range: >60 EST GFR, NON-AFR ISRAELI >60 ml/min Range: >60 Comments: EST GFR [...] Range: 150-400 MPV 7.0 fL Range: 6.0-11.0 Plan of Care Name Dates Details Planned Observations MAGNESIUM 1260 On 25-May-2016 Intent CBC w/ Auto Diff 7150 On 12-Jun-2016 Intent Comprehensive Metabolic Panel 1212 On 12-Jun-2016 Intent MAGNESIUM 1260 On 12-Jun-2016 Intent Planned Goals not documented Planned Encounters Appointment; Provider: Poornima العلي M.D. On 19-Feb-2017 10:00 Appointment; Provider: Tristan Garber M.D.|WILLIAN,WILLIAN,FACP, On May-2016 10:30 Interventions Provided Medication ChangesAzithromycin 250 MG Oral Tablet - RenewLabs/Procedures/Imaging CBC w/ Auto Diff 7150; Done: May 22 2016 11:25AMCBC w/ Auto Diff 7150; Done: May 29 2016 9:35AMCBC w/ Auto Diff 7150; Done: Jun 05 2016 9:20AMMAGNESIUM 1260; Done: May 22 2016 11:25AMMAGNESIUM 1260; Done: May 29 2016 9:35AM Instructions Name Dates Details Instructions not documented Encounters Appointment; Tristan Garber M.D.|FACP|MTreva,FACP|Cat,FACP, On 01-May-2016 Encounter Diagnosis: Problem not documented 13:30 Appointment; Tristan Garber M.D.|FACP|Cat,FACP|Cat,FACP, On 24-Apr-2016 Encounter Diagnosis: Problem not documented 13:00 Appointment; Tristan Garber M.D.|FACP|M.DShirley,FACP|Cat,FACP, On 03-Apr-2016 Encounter Diagnosis: Problem not documented 16:00 Appointment; Tristan Garber M.D.|FACP|Cat,FACP|Cat,FACP, On 20-Mar-2016 Encounter Diagnosis: Problem not documented 16:00 Appointment; Tristan Garber M.D.|FACP|MShirleyDShirley,FACP|Cat,FACP, On 13-Mar-2016 Encounter Diagnosis: Problem not documented 09:30 Appointment; Sarkis Woods M.D. On 08-Mar-2016 Encounter Diagnosis: Problem not documented 09:00 Appointment; Tristan Garber M.D.|FACP|MShirleyDShirley,FACP|Cat,FACP, On 22-Feb-2016 Encounter Diagnosis: Problem not documented 14:15 Appointment; Poornima العلي M.D. On 21-Feb-2016 Encounter Diagnosis: Problem not documented 10:15 Appointment; Tristan Garber M.D.|FACPRowenaMShirleyDShirley,FACP|Cat,FACP, On 01-Feb-2016 Encounter Diagnosis: Problem not documented [...]
--- OUTSIDE RECORDS SUMMARY | 2017-03-10 23:50 | External Medical Summary | Summary of Care ---
:1960 Author Name Claire Tipton APRN Address [address] Unavailable [place], [place] [id number] Care Team Providers Name Role Phone Jcarlos [...] Panel 1212 Ordered: 27-Jul-2016 Carbohydrate Antigen 19-9 831311 Ordered: 27-Jul-2016 THYROID STIM. HORMONE 3602 Ordered: [...] >60 ml/min Range: >60 EST GFR, NON-AFR RWANDAN >60 ml/min Range: >60 Comments: EST GFR [...] Date: 07/24/2016 09:10 CONTRAST XC CHEST/AB/PEL 45 [place] 10:22 CBC w/ Auto Diff 7150 WBC [...] >60 ml/min Range: >60 EST GFR, NON-AFR RWANDAN >60 ml/min Range: >60 Comments: EST GFR [...] Observations CBC w/ Auto Diff 7150 On 31-Jul-2016 Intent CBC w/ Auto Diff 7150 On 07-Aug-2016 Intent CBC w/ Auto Diff 7150 On 14-Aug-2016 Intent CBC w/ Auto Diff 7150 On 21-Aug-2016 Intent Comprehensive Metabolic Panel 1212 On 21-Aug-2016 Intent Carbohydrate Antigen 19-9 869988 On 21-Aug-2016 Intent THYROID STIM. HORMONE 3602 On 21-Aug-2016 Intent AMYLASE 1250 On 21-Aug-2016 Intent Lipase 1275 On 21-Aug-2016 Intent FREE T4 3604 On 21-Aug-2016 Intent Planned Goals not documented Planned Encounters Appointment; Provider: Poornima العلي M.D. On 19-Feb-2017 10:00 Appointment; Provider: Tristan Garber M.D.|WILLIAN,HEBERT|Cat,HEBERT, On Aug-2016 11:00 Appointment; Provider: Schedule Radiology On 07-Aug-2016 11:00 Appointment; Provider: Schedule Radiology On 07-Aug-2016 10:45 Instructions Name Dates Details Instructions not documented Encounters Appointment; Tristan Garber M.D.|FACP|M.D.,FACP|M.D.,FACP, On 18-Jul-2016 Encounter [...]
--- OUTSIDE RECORDS SUMMARY | 2017-03-10 23:51 | External Medical Summary | Summary of Care ---
[...] 11-Jan-2016 Comprehensive Metabolic Panel 1212 Ordered: 11-Jan-2016 CBC w/ Auto Diff 7150 Ordered: 19-Jan-2016 CT HEAD WITHOUT AND WITH IV CONTRAST [...] >60 ml/min Range: >60 EST GFR, NON-AFR MALAWIAN >60 ml/min Range: >60 Comments: EST GFR [...] >60 ml/min Range: >60 EST GFR, NON-AFR MALAWIAN >60 ml/min Range: >60 Comments: EST GFR [...] Adequate Range: Adequate ANISO Slight HYPOCHRO Slight Plan of Care Name Dates Details Planned Observations CBC w/ Auto Diff 7150 On 27-Jan-2016 Intent MAGNESIUM 1260 On 27-Jan-2016 Intent MAGNESIUM 1260 On 31-Jan-2016 Intent CBC w/ Auto Diff 7150 On 31-Jan-2016 Intent Planned Goals not documented Planned Encounters Appointment; Provider: Tristan Garber M.D.|WILLIAN DORSEY FACP, On Jan-2016 16:00 Interventions Provided Labs/Procedures/ImagingCBC w/ Auto Diff 7150; To be Done: 19 Jan 2016 Instructions Name Dates Details Instructions not documented Encounters Appointment; Tristan Garber M.D.|WILLIAN DORSEY FACP, On 11-Jan-2016 Encounter Diagnosis: Problem not documented 10:15 Appointment; Tristan Garber M.D.|KELLIEP|Cat,HEBERT|Cat,HEBERT, On 28-Dec-2015 Encounter Diagnosis: Problem not documented 09:15 Appointment; Tristan Garber M.D.|KELLIEP|Cat,KELLIEP|Cat,HEBERT, On 13-Dec-2015 Encounter Diagnosis: Problem not documented 13:15 Appointment; Tristan Garber M.D.|FACP|Cat,KELLIEP|Cat,HEBERT, On Encounter Diagnosis: Problem not documented 09:00 Appointment; Tristan Garber M.D.|WILLIAN,HEBERT|Cat,HEBERT, On Encounter Diagnosis: Problem not documented 11:00"
--- OUTSIDE RECORDS SUMMARY | 2017-03-10 23:51 | External Medical Summary | Summary of Care ---
[...] >60 ml/min Range: >60 EST GFR, NON-AFR UZBEK >60 ml/min Range: >60 Comments: EST GFR [...] Date: 04/20/2016 09:31 CONTRAST XC CHEST/AB/PEL 45 [place] 24-Apr-2016 13:01 CBC w/ Auto Diff 7150 [...] >60 ml/min Range: >60 EST GFR, NON-AFR UZBEK >60 ml/min Range: >60 Comments: EST GFR [...] 19-Feb-2017 10:00 Appointment; Provider: Schedule Radiology On 20-Apr-2016 09:00 Interventions Provided Labs/Procedures/ImagingCBC w/ Auto Diff 7150; Done: Apr 11 2016 10:20AMCBC w/ Auto Diff 7150; Done: Apr 18 2016 9:55AMCBC w/ Auto Diff 7150; Done: Apr 24 2016 12:30PMComprehensive Metabolic Panel 1212; Done: Apr 24 2016 12: 30PMMAGNESIUM 1260; Done: Apr 11 2016 10:20AMMAGNESIUM 1260; Done: Apr 18 2016 9:55AMMAGNESIUM 1260; Done: Apr 24 2016 12:30PM Instructions Name Dates Details Instructions not documented Encounters Appointment; Tristan Garber M.D.|FACP|M.D.,FACP|M.D.,FACP, On 20-Mar-2016 Encounter [...]
--- OUTSIDE RECORDS SUMMARY | 2017-03-10 23:51 | External Medical Summary | Summary of Care ---
[...] Dates Details Cellulitis (682.9, L03.90) Status: Active Dyspnea (786.09, [...] Mass of stomach (537.9, K31.9) Status: Active Pneumonia (486, J18.9) Status: Active Medications Name Dates Details Metoprolol Tartrate 50 MG Oral Tablet TAKE ONE TABLET BY MOUTH TWICE A DAY ( MORNING AND AT BEDTIME) Quantity: 180 Refills: 3 Tin P.A.Cordell Start 09-Aug-2016 Active Folic Acid 1 MG Oral Tablet Take 1 tablet daily Quantity: 30 Refills: 5 Jcarlos Shelton, HEBRET, , , Tristan F Start 28-Dec-2015 Active Dexamethasone 4 MG Oral Tablet one tab po bid day before and day after Alimta treatment Quantity: 30 Refills: 1 Jcarlos Shelton, HEBERT, , , Tristan F Start 28-Dec-2015 Active Nitroglycerin 0.4 MG Sublingual Tablet Sublingual [...] , , Tristan F Start 29-Dec-2015 Active Prochlorperazine Maleate 10 MG Oral Tablet [...] Panel 1212 Ordered: 27-Jul-2016 Carbohydrate Antigen 19-9 [id number] Ordered: 27-Jul-2016 THYROID STIM. HORMONE 3602 Ordered: [...] m2 Status: Results Date Description Value Details 17-Jul-2016 10:33 CBC w/ Auto Diff 7150 [...] Date: 07/24/2016 09:10 CONTRAST XC CHEST/AB/PEL 45 [place] 10:22 CBC w/ Auto Diff 7150 WBC [...] >60 ml/min Range: >60 EST GFR, NON-AFR [place] ISLANDER >60 ml/min Range: >60 Comments: EST GFR [...] Details Planned Observations FREE T4 3604 On 21-Aug-2016 Intent Lipase 1275 On 21-Aug-2016 Intent AMYLASE 1250 On 21-Aug-2016 Intent THYROID STIM. HORMONE 3602 On 21-Aug-2016 Intent Carbohydrate Antigen 19-9 474519 On 21-Aug-2016 Intent Comprehensive Metabolic Panel 1212 On 21-Aug-2016 Intent CBC w/ Auto Diff 7150 On 21-Aug-2016 Intent Planned Goals not documented Planned Encounters Appointment; Provider: Poornima العلي M.D. On 19-Feb-2017 10:00 Appointment; Provider: Tristan Garber M.D.|FACP|MShirleyDShirley,FACP|Cat,FACP, On Aug-2016 11:00 Appointment; Provider: Schedule Radiology On 07-Aug-2016 11:15 Appointment; Provider: Schedule Radiology On 07-Aug-2016 11:00 Interventions Provided Labs/Procedures/ImagingCBC w/ Auto Diff 7150; Done: Jul 31 2016 10:45AMCBC w/ Auto Diff 7150; Done: Aug 07 2016 10:20AMCBC w/ Auto Diff 7150; Done: Aug 14 2016 12:45PM Instructions Name Dates Details Instructions not documented Encounters Appointment; Tristan Garber M.D.|FACP|M.DShirley,FACP|MTreva,FACP, On 18-Jul-2016 Encounter [...] Problem not documented 11:00 Appointment; Tristan Garber M.D.|FACP|M.DShirley,FACP|M.D.,FACP, On 01-May-2016 Encounter Diagnosis: Problem not documented [...]
--- OUTSIDE RECORDS SUMMARY | 2017-03-10 23:51 | External Medical Summary | Summary of Care ---
[...] of left lung (162.3, C34.12) Status: Active Tachycardia (785.0, R00.0) Status: Active History of Creation Of Pericardial Window Status: Resolved Pulmonary embolism (415.19, I26.99) Status: Active Medications [...] Window CBC w/ Auto Diff 7150 Ordered: 01-Feb-2016 [...] 02/04/2016 10:20 CONTRAST XC CHEST/AB 45 MIN [place] 07-Feb-2016 09:53 MAGNESIUM 1260 MAGNESIUM 2.2 mg/dL [...] >60 ml/min Range: >60 EST GFR, NON-AFR [place] ISLANDER >60 ml/min Range: >60 Comments: EST [...] MAGNESIUM 1260 MAGNESIUM 1.8 mg/dL Range: 1.8-2.4 Plan of Care Name Dates Details Planned Observations CBC w/ Auto Diff 7150 On 24-Feb-2016 Intent Planned Goals not documented Planned Encounters Appointment; Provider: Poornima العلي M.D. On 19-Feb-2017 10:00 Appointment; Provider: Tristan Garber M.D.|WILLIAN,HEBERT DORSEY, On Feb-2016 14:15 Appointment; Provider: Schedule Radiology On 17-Feb-2016 08:00 Appointment; Provider: Schedule Radiology On 04-Feb-2016 10:30 Appointment; Provider: Schedule Radiology On 04-Feb-2016 10:30 Interventions Provided Labs/Procedures/ImagingCBC w/ Auto Diff 7150; Done: Feb 21 2016 9:45AMCBC w/ Auto Diff 7150; Done: Feb 07 2016 9:25AMComprehensive Metabolic Panel 1212; Done: Feb 21 2016 9:45AMMAGNESIUM 1260; Done: Feb 21 2016 9:45AMMAGNESIUM 1260 ; Done: Feb 07 2016 9:25AM Instructions Name Dates Details Instructions not documented Encounters Appointment; Tristan Garber M.D.|WILLIAN,HEBERT|HEBERT Shelton, On 11-Jan-2016 Encounter Diagnosis: Problem not documented 10:15 Appointment; Tristan Garber M.D.|WILLIAN,HEBERT|HEBERT Shelton, On 28-Dec-2015 Encounter Diagnosis: Problem not documented 09:15 Appointment; Tristan Garber M.D.|WILLIAN,HEBERT|HEBERT Shelton, On 13-Dec-2015 Encounter Diagnosis: Problem not documented 13:15 Appointment; Tristan Garber M.D.|HEBERT|Cat,HEBERT|Cat,HEBERT, On Encounter Diagnosis: Problem not documented 09:00 Appointment; Tristan Garber M.D.|HEBERT|Cat,HEBERT|Cat,HEBERT, On Encounter Diagnosis: Problem not documented 11:00"
--- OUTSIDE RECORDS SUMMARY | 2017-03-10 23:52 | External Medical Summary | Summary of Care ---
:1960 Author Name Tipton Mio VALENTEine Address [address] Unavailable [place], [place] [id number] Care Team Providers Name Role Phone Jcarlos [...] Active Pulmonary embolism (415.19, I26.99) Status: Active Cellulitis (682.9, L03.90) Status: Active Medications Name Dates Details HYDROmorphone HCl - 2 MG Oral Tablet TAKE 1 TABLET EVERY 6 HOURS. Refills: 0 Estephan M.D., FACP, , , Tristan F Start 13-Dec-2015 Active Warfarin Sodium 7.5 MG Oral Tablet TAKE 1 TABLET DAILY DIRECTED. Refills: 0 Estephan M.D., FACP, , , Tristan F Start 13-Dec-2015 Active Allergies and Adverse Reactions Name Dates Details Penicillins (Allergy) Status: Active Procedures Procedure Dates Details Comprehensive Metabolic Panel 1212 Ordered: 13-Dec-2015 CBC w/ Auto Diff 7150 Ordered: 13-Dec-2015 [...] (Above high threshold) Range: 12.0-14.9 INR 1.49 Plan of Care Name Dates Details Planned Observations CBC w/ Auto Diff 7150 On 27-Dec-2015 Intent Comprehensive Metabolic Panel 1212 On 27-Dec-2015 Intent MAGNESIUM 1260 On 27-Dec-2015 Intent PROTIME PANEL 7000 On 21-Dec-2015 Intent PROTIME PANEL 7000 On 27-Dec-2015 Intent Planned Goals not documented Planned Encounters Appointment; Provider: Tristan Garber M.D.|WILLIAN DORSEY FACP, On Dec-2015 09:15 Interventions Provided Labs/Procedures/ImagingComprehensive Metabolic Panel 1212; To be Done: 13 Dec 2015CBC w/ Auto Diff 7150; Done: Dec 13 2015 1:52PMPROTIME PANEL 7000; Done: Dec 13 2015 1:52PM Instructions Name Dates Details Instructions not documented Encounters Appointment; Tristan Garber M.D.|WILLIAN,HEBERT DORSEY, On Encounter Diagnosis: Problem not documented 09:00 Appointment; Tristan Garber M.D.|WILLIAN,HEBERT|Cat,HEBERT, On Encounter Diagnosis: Problem not documented 11:00"
--- OUTSIDE RECORDS SUMMARY | 2017-03-10 23:52 | External Medical Summary ---
:1960 Author Name GENERATED, SYSTEM Care Team Providers Name Role Phone UNASSIGNED DOCTOR MD DON DOCTOR Primary Care Provider [phone] Reason For Visit Reason for Visit from 06/22/2015 12:50 PM:Pt Stated Reason for Adm : Lovenox injection Chief Complaint LEFT EXTREMITY DVT Social History Functional Status Functional Status from 06/29/2015 12:42 PM:LOC : AlertOriented To : Person,Place, TimeFunctional Status from 06/28/2015 12:35 PM:LOC : AlertOriented To : Person, Place,Time,EventFunctional Status from 06/27/2015 10:27 AM:LOC : AlertOriented To : Person,Place,TimeFunctional Status from 06/26/2015 12:23 PM:LOC : AlertOriented To : Person,Place,TimeFunctional Status from 06/25/2015 12:53 PM: LOC : AlertOriented To : Person,Place,TimeFunctional Status from 06/24/2015 12: 34 PM:LOC : AlertOriented To : Person,Place,Time,EventFunctional Status from 06/22 12:59 PM:LOC : AlertOriented To : Person,Place,TimeFunctional Status from 06/22/2015 12:50 PM:LOC : AlertOriented To : Person,Place,Time,Event Vital Signs Hospital Vital Signs from 06/29/2015 12:40 PM:Height : 5/10 ft,inTemperature : 97.4 FPulse : 83Respirations : 18BP : 123/84Hospital Vital Signs from 06/28/2015 12:36 PM:Height : 5/10 ft,inTemperature : 97.8 FPulse : 60Respirations : 18BP : 142/79Hospital Vital Signs from 06/27/2015 10:27 AM:Height : 5/10 ft, inTemperature : 97.0 FPulse : 67Respirations : 18BP : 126/75Hospital Vital Signs from 06/26/2015 12:23 PM:Height : 5/10 ft,inTemperature : 97.4 FPulse : 61Respirations : 18BP : 142/80Hospital Vital Signs from 06/25/2015 12:53 PM: Height : 5/10 ft,inTemperature : 98.5 FPulse : 68Respirations : 18BP : 130/ 81Hospital Vital Signs from 06/24/2015 12:41 PM:Height : 5/10 ft,inTemperature : 98.7 FPulse : 76Respirations : 18BP : 135/80Hospital Vital Signs from 06/23/2015 1 :03 PM:Height : 5/10 ft,inTemperature : 98.2 FPulse : 81Respirations : 18BP : 128/84Hospital Vital Signs from 06/22/2015 12:55 PM:Weight : 185/ lbs,ozHeight : 5 /10 ft,inTemperature : 96.7 FPulse : 74Respirations : 16BP : 127/79Hospital Vital Signs from 06/22/2015 12:50 PM:Weight : 83.915/ kgHeight : 5/10 ft,in Results Coagulation from 06/29/2015 12:43 PM*PROTHROMBIN TIME15.4 SECONDS H (9.4-11.5 SECONDS) *INR1.4 H (0.9-1.1 )Coagulation from 06/28/2015 12:40 PM*PROTHROMBIN TIME14.7 SECONDS H (9.4-11.5 SECONDS) *INR1.4 H (0.9-1.1 )Coagulation from 06/27/2015 10:29 AM*PROTHROMBIN TIME14.2 SECONDS H (9.4-11.5 SECONDS) *INR1.3 H (0.9-1.1 )Coagulation from 06/26/2015 1:03 PM*PROTHROMBIN TIME14.5 SECONDS H (9.4-11.5 SECONDS) *INR1.4 H (0.9-1.1 )Coagulation from 06/25/2015 1:00 PM*PROTHROMBIN TIME13.6 SECONDS H (9.4-11.5 SECONDS) *INR1.3 H (0.9-1.1 )Coagulation from 06/24/2015 12:39 PM*PROTHROMBIN TIME12.9 SECONDS H (9.4-11.5 SECONDS) *INR1.2 H (0.9-1.1 )Coagulation from 06/23/2015 1:01 PM*PROTHROMBIN TIME12.2 SECONDS H (9.4-11.5 SECONDS) *INR1.1 (0.9-1.1 )Coagulation from 06/22/2015 12:57 PM*PROTHROMBIN TIME11.4 SECONDS (9.4-11.5 SECONDS) *INR1.1 (0.9-1.1 ) Problems Encounter Diagnosis No relevant [...]
--- OUTSIDE RECORDS SUMMARY | 2017-03-10 23:52 | External Medical Summary | Summary of Care ---
:1960 Author Name Poornima العلي M.D. Address [address] Unavailable [place], [place] [phone] Care Team Providers Name Role Phone Poornima العلي M.D. Unavailable Unavailable Claudio Ritchie M.D. 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 Refills: 0 Start 17-Feb-2016 Active Suprep Bowel Prep Oral Solution DILUTE [...] smoked Vital Signs Date Test Result Details 12-Jul-2016 [...] Position: Temperature 97.7 f Status: Heart Rate 71 /min Status: Comments: Location: [...] 12-Jul-2016 10:52 ECG/ EKG ([facility]) Electro CardioGram Plan of Care Name Dates Details Planned Observations ECG/ EKG ([facility]) On 19-Feb-2017 Intent Planned Goals not documented Planned Encounters Appointment; Provider: Poornima العلي M.D. On 19-Feb-2017 10:00 Appointment; Provider: Tristan Garber M.D.|FACP|M.D.,FACP|M.DShirley,FACP, On Jul-2016 11:00 Appointment; Provider: Schedule Radiology On 24-Jul-2016 08:00 Appointment; Provider: Claudio Ritchie M.D. On 13-Jul-2016 11:30 Appointment; Provider: Caridad Kuhn On 13-Jul-2016 11:00 Appointment; Provider: Schedule Radiology On 20-Apr-2016 09:00 Appointment; Provider: Schedule Radiology On 27-Mar-2016 15:00 Appointment; Provider: Schedule Radiology On 27-Mar-2016 15:00 Instructions Name Dates Details Instructions not documented Encounters Appointment; Tristan Garber M.D.|FACP|M.D.,FACP|M.D.,FACP, On 01-Feb-2016 Encounter [...]
--- OUTSIDE RECORDS SUMMARY | 2017-03-10 23:52 | External Medical Summary ---
:1960 Author Name GENERATED, SYSTEM Care Team Providers Name Role Phone UNASSIGNED DOCTOR MD SHWETA OCHOA Primary Care Provider [phone] Reason For Visit Reason for Visit from 06/20/2015 2:00 PM:Pt Stated Reason for Adm : Right Leg DVT Chief Complaint KNEE PAIN Social History Social History from 06/21/2015 1:58 PM:Tobacco Use? : Heavy Tobacco SmokerSocial History from 06/20/2015 2:00 PM:Tobacco Use? : Heavy Tobacco Smoker Functional Status Functional Status from 06/21/2015 7:35 AM:LOC : AlertOriented To : Person,Place, TimeWeight Bearing Status : FullAssist Level : Partial# Assists : 1Functional Status from 06/20/2015 7:18 PM:LOC : AlertOriented To : Person,Place,Time, EventWeight Bearing Status : FullAssist Level : Partial# Assists : 1Functional Status from 06/20/2015 2:00 PM:LOC : AlertOriented To : Person,Place,Time, EventWeight Bearing Status : FullAssist Level : Independent# Assists : 1 Vital Signs Hospital Vital Signs from 06/21/2015 2:35 PM:Height : 5/10 ft,inHospital Vital Signs from 06/21/2015 7:09 AM:Height : 5/10 ft,inTemperature : 95.9 FRespirations : 18BP : 111/61Hospital Vital Signs from 06/20/2015 11:29 PM:Height : 5/10 ft, inTemperature : 98.8 FPulse : 67Respirations : 18BP : 125/64Hospital Vital Signs from 06/20/2015 2:00 PM:Weight : 87.1/ kgHeight : 5/10 ft,in Results Chemistry from 06/21/2015 6:52 [id number] MMOL/L (136-145 MMOL/L) POTASSIUM4.3 MMOL/L (3.5-5.1 MMOL/L) [id number] MMOL/L (98-107 MMOL/L) QHE225.5 MMOL/L (21.0-32.0 MMOL/L) *ANION GAP7.5 MMOL/L L (8.0-16.0 MMOL/L) BUN15 MG/DL (7-18 MG/DL) CREATININE0.99 MG/DL (0.70-1.30 MG/DL) *BUN/CREATININE RATIO15.2 (9.1-17.0 ) DPFFGNW96 MG/DL (65-99 MG/DL) *GFR EST NON AFR JQSZZXUF54 ML/MIN *GFRA EST AFR AMER>90 ML/MIN CALCIUM8.8 MG/DL (8.5-10.1 MG/DL) ALBUMIN3.2 GM/DL L (3.4-5.0 GM/DL) PHOSPHORUS3.7 MG/DL (2.6-4.7 MG/DL)Hematology from 06/21/2015 6:52 AMWBC8.5 X10e3/ UL (3.6-11.2 X10e3/UL) RBC5.00 X10e6/UL (4.06-5.63 X10e6/UL) WKMVIKZFRE49.5 G/DL (12.5-16.3 G/DL) XYQMWFDVKY17.3 % (36.7-47.1 %) *MCV88.6 FL (80.0-100.0 FL) *MCH29.0 PG (27.0-33.0 PG) *MCHC32.7 G/DL (32.0-36.0 G/DL) *RDW13.5 % (12.3-17.0 %) *RDWSD41.6 (37.1-47.8 ) SEZQTRAW066 X10e3/UL (159-386 X10e3/UL) *MPV7.6 FL (7.4-10.4 FL) AUTOMATED DIFFPERFORMED SEGS63.8 % *EJHUSUDPBYL71.1 % *MONOCYTES6.8 % *EOSINOPHILS7.0 % *BASOPHILS1.3 % *ABSOLUTE NEUTROPHILS5.40 X10e3/UL (1.80-7.80 X10e3/UL) *ABSOLUTE LYMPHOCYTES1.80 X10e3/UL (1.00-3.00 X10e3/UL) *ABSOLUTE MONOCYTES0.60 X10e3/UL (0.30-1.00 X10e3/UL) *ABSOLUTE EOSINOPHILS0.60 X10e3/UL H (0.00-0.50 X10e3/UL) *ABSOLUTE BASOPHILS0.10 X10e3/UL (0.00-0.20 X10e3/UL)Coagulation from 06/21/2015 6 :52 AM*PROTHROMBIN TIME10.7 SECONDS (9.4-11.5 SECONDS) *INR1.0 (0.9-1.1 ) Problems Encounter Diagnosis Acute Pain Status:Active.Deep Venous Thrombosis Status:Active.Fall Risk Status: Active.Mobility Impairment Status:Active.Tobacco Use Status:Active. Encounters Encounter Diagnosis Acute Pain Status:Active.Deep Venous Thrombosis Status:Active.Fall Risk Status: Active.Mobility Impairment Status:Active.Tobacco Use Status:Active. Plan of Care Follow-up Appointments from 06/21/2015 1:58 PM:#1 Office appointment: : Follow up with primary care doctor in 3 daysTreatment Plan from 06/21/2015 10:45 AM:Care Management Note :Admission status: Outpatient observationPer H&P: The patient is a 55-year-old male, who presented to the ER with a 3-day history of sudden onset right leg swelling and pain. The patient has not had any recent travel. He has no history ofhypercoagulable state. He does have an aunt that he believes had ongoing issue with blood clots on his mother's side but he is not sure. The patient has not had any recent travel or surgeries, has never anything like this before and was found to have a DVT and is being admitted for management. The patient denies any other symptoms. No shortness of breath, palpitations, cough, hemoptysis, dizziness,syncope, numbness, tingling, weakness , chest pain.labs and vital signs noted.POC: up ad kallie. labs pending. Lovenox and Coumadin.talked with Dr Hastings - he is dismissing this patient home today. patient does not have PCP and/or insurance coverage. Patient will need outpatient Lovenox for 1 week - Chey MENON is already aware of social issues and is working on them. Cehy is also working with this patient regarding cost for meds. Patient will follow up her at outpatient infusion for Lovenox and INR.meets outpatient observation status with plan to go home today.Treatment Plan from 06/21/2015 10:30 AM:Care Management Note : Visited with patient. Patient lives by himself and plans to return home later today. States he has not worked for a number of years, is not on disability nor is he disabled. Just can't find work. States his son and sister support him! [facility] [place] due for need to monitor blood levels with his Coumadin. Patient states he has been to [facility] in past but has been a number of years ago. Also arranged for patient to get lovenox injections for next 5 days at out patient infusion at 1p.m. Provided discount coupons for meds. Patient is a low risk for readmissions. Procedures No relevant procedures performed. Immunizations No immunizations administered or ordered. Hospital Course Hospital Discharge Instructions How to care for yourself at home from 06/21/2015 1:58 PM:Discharge Activity : Activity as tolerated,May ShowerDischarge Diet : Diet as directed by dieticianDischarge Diet: : RegularCall your doctor if: : Fever [...] : YesSpecific Discharge Teaching Instructions Reviewed: : Coumadin TeachingDischarge on Warfarin : YesAppointment for INR : daily with outpt injection Allergies, Adverse Reactions, Alerts Penicillins causes Severe Hives. Onset 1967.No Latex Allergy.No IV Contrast Allergy. Medication It is the responsibility of the patient or patient vaccine customer representative to confirm the list of medicationswith either the patient's personal care provider or the patient's follow-up care provider to ensure the patient has an appropriate list of medications to take at home. Discharge medicationsNew medicationsibuprofen 600 mg Tablet, Ordered By: JOSÉ HASTINGS MD Directions: 1 tablet oral every six hours PRN PAIN oxyCODONE-acetaminophen 5 mg-325 mg Tablet, Ordered By: JOSÉ HASTINGS MD Directions: 1-2 oral every four hours PRN PAIN Additional Instructions: . warfarin (Coumadin) 5 mg Tablet, Ordered By: JOSÉ HASTINGS MD Directions: 1 tablet oral daily Additional Instructions: hold for INR > 3.0 enoxaparin 120 mg/0.8 mL Syringe, Ordered By: HEIDY FERREIRA RN Directions: 120 mg subcutaneous daily Additional Instructions: To be given in outpatient infusion Stopped medicationsNone
--- OUTSIDE RECORDS SUMMARY | 2017-03-10 23:52 | External Medical Summary | Summary of Care ---
[...] APPLY 1 PATCH DAILY DIRECTED. Refills: 0 Estealex M.D., FACP, , , [...] MAGNESIUM 1260 Ordered: 28-Dec-2015 MAGNESIUM 1260 Ordered: 11-Jan-2016 CBC w/ Auto [...] >60 ml/min Range: >60 EST GFR, NON-AFR ETHIOPIAN >60 ml/min Range: >60 Comments: EST GFR [...] >60 ml/min Range: >60 EST GFR, NON-AFR ETHIOPIAN >60 ml/min Range: >60 Comments: EST GFR [...] Observations CBC w/ Auto Diff 7150 On 26-Jan-2016 Intent MAGNESIUM 1260 On 26-Jan-2016 Intent MAGNESIUM 1260 On 01-Feb-2016 Intent CBC w/ Auto Diff 7150 On 01-Feb-2016 Intent Comprehensive Metabolic Panel 1212 On 01-Feb-2016 Intent Planned Goals not documented Planned Encounters Appointment; Provider: Tristan Garber M.D.|WILLIAN DORSEY FACP, On Jan-2016 16:00 Interventions Provided Labs/Procedures/ImagingMAGNESIUM 1260; [facility]; Done: Jan 19 2016 7:43AM Instructions Name Dates Details Instructions not documented Encounters Appointment; Tristan Garber M.D.|WILLIAN,HEBERT DORSEY, On 28-Dec-2015 Encounter Diagnosis: Problem not documented 09:15 Appointment; Tristan Garber M.D.|WILLIAN,HEBERT DORSEY, On 13-Dec-2015 Encounter Diagnosis: Problem not documented 13:15 Appointment; Tristan Garber M.D.|WILLIAN,HEBERT DORSEY, On Encounter Diagnosis: Problem not documented 09:00 Appointment; Tristan Garber M.D.|WILLIAN,HEBERT DORSEY, On Encounter Diagnosis: Problem not documented 11:00"
--- OUTSIDE RECORDS SUMMARY | 2017-03-10 23:52 | External Medical Summary | Summary of Care ---
[...] m2 Status: Results Date Description Value Details 01-May-2016 13:27 CBC w/ Auto Diff 7150 [...] >60 ml/min Range: >60 EST GFR, NON-AFR LAO >60 ml/min Range: >60 Comments: EST GFR [...] Observations CBC w/ Auto Diff 7150 On 05-Jun-2016 Intent MAGNESIUM 1260 On 05-Jun-2016 Intent CBC w/ Auto Diff 7150 On 12-Jun-2016 Intent Comprehensive Metabolic Panel 1212 On 12-Jun-2016 Intent MAGNESIUM 1260 On 12-Jun-2016 Intent Planned Goals not documented Planned Encounters Appointment; Provider: Poornima العلي M.D. On 19-Feb-2017 10:00 Appointment; Provider: Tristan Garber M.D.|WILLIAN DORSEY FACP, On May-2016 10:30 Interventions Provided Medication ChangesAzithromycin 250 MG Oral Tablet - RenewLabs/Procedures/Imaging CBC w/ Auto Diff 7150; Done: May 22 2016 11:25AMCBC w/ Auto Diff 7150; Done: May 29 2016 9:35AMMAGNESIUM 1260; Done: May 22 2016 11:25AMMAGNESIUM 1260; Done : May 29 2016 9:35AM Instructions Name Dates Details Instructions not documented Encounters Appointment; Tristan Garber M.D.|WILLIAN,WILLIAN,HEBERT, On 01-May-2016 Encounter Diagnosis: Problem not documented 13:30 Appointment; Tristan Garber M.D.|WILLIAN,KELLIEPMisti,HEBERT, On 24-Apr-2016 Encounter Diagnosis: Problem not documented 13:00 Appointment; Tristan Garber M.D.|WILLIAN,KELLIEPMisti,HEBERT, On 03-Apr-2016 Encounter Diagnosis: Problem not documented 16:00 Appointment; Tristan Garber M.D.|WILLIAN,KELLIEPMisti,FACP, On 20-Mar-2016 Encounter Diagnosis: Problem not documented [...] Problem not documented 09:00 Appointment; Tristan Garber M.D.|FACP|M.D.,FACP|MTreva,FACP, On Encounter Diagnosis: Problem not documented 11:00"
--- OUTSIDE RECORDS SUMMARY | 2017-03-10 23:52 | External Medical Summary | Summary of Care ---
[...] m2 Status: Results Date Description Value Details 31-Jan-2016 09:09 CBC w/ Auto Diff 7150 [...] 02/04/2016 10:20 CONTRAST XC CHEST/AB 45 MIN [place] 07-Feb-2016 09:53 MAGNESIUM 1260 MAGNESIUM 2.2 mg/dL [...] Diff 7150 Comments: Critical result called to [facility] by Sigrid Taylor on 02/24/2016 at [...] Adequate Range: Adequate ANISO Mod POLYCHRO Slight Plan of Care Name Dates Details Planned Observations CBC w/ Auto Diff 7150 On 08-Mar-2016 Intent MAGNESIUM 1260 On 08-Mar-2016 Intent CBC w/ Auto Diff 7150 On 13-Mar-2016 Intent Comprehensive Metabolic Panel 1212 On 13-Mar-2016 Intent MAGNESIUM 1260 On 13-Mar-2016 Intent Planned Goals not documented Planned Encounters Appointment; Provider: Poornima العلي M.D. On 19-Feb-2017 10:00 Appointment; Provider: Tristan Garber M.D.|FACP|MTreva,FACPMisti,FACP, On Feb-2016 14:15 Appointment; Provider: Sarkis Woods M.D. On 29-Feb-2016 09:30 Interventions Provided Labs/Procedures/ImagingCBC w/ Auto Diff 7150; Done: Feb 28 2016 9: 09AMMAGNESIUM 1260; Done: Feb 28 2016 9:09AM Instructions Name Dates Details Instructions not documented [...]
--- OUTSIDE RECORDS SUMMARY | 2017-03-10 23:53 | External Medical Summary | Summary of Care ---
:1960 Author Name Poornima العلي M.D. Address [address] [place], [place] [id number] Care Team Providers Name Role Phone Poornima [...] Pendin21-Feb-2016 CBC w/ Auto Diff 7150 Ordered: 01-Feb-2016 [...] 02/04/2016 10:20 CONTRAST XC CHEST/AB 45 MIN [place] 07-Feb-2016 09:53 MAGNESIUM 1260 MAGNESIUM 2.2 mg/dL [...] >60 ml/min Range: >60 EST GFR, NON-AFR [place] >60 ml/min Range: >60 Comments: EST GFR [...] Tristan Garber M.D.|WILLIAN,HEBERT DORSEY, On Feb-2016 14:15 Instructions Name Dates Details Instructions not documented Encounters Appointment; Tristan Garber M.D.|WILLIAN,HEBERT|Cat,HEBERT, On 01-Feb-2016 Encounter Diagnosis: Problem not documented 16:00 Appointment; Tristan Garber M.D.|WILLIAN,FACP|Cat,KELLIEP, On 11-Jan-2016 Encounter Diagnosis: Problem not documented 10:15 Appointment; Tristan Garber M.D.|KELLIEP|Cat,KELLIEP|Cat,HEBERT, On 28-Dec-2015 Encounter Diagnosis: Problem not documented 09:15 Appointment; Tristan Garber M.D.|FACPMisti,FACP|Cat,KELLIEP, On 13-Dec-2015 Encounter Diagnosis: Problem not documented 13:15 Appointment; Tristan Garber M.D.|KELLIEPMisti,FACP|Cat,FACP, On Encounter Diagnosis: Problem not documented 09:00 Appointment; Tristan Garber M.D.|WILLIAN,HEBERT|Cat,HEBERT, On Encounter Diagnosis: Problem not documented 11:00"
--- OUTSIDE RECORDS SUMMARY | 2017-03-10 23:53 | External Medical Summary | Summary of Care ---
:1960 Author Name Claire Tipton APRN Address [address] Unavailable [place], [place] [phone] Care Team Providers Name Role Phone Claire [...] >60 ml/min Range: >60 EST GFR, NON-AFR BRAZILIAN >60 ml/min Range: >60 Comments: EST GFR [...] Range: 0.80-1.67 22-Aug-2016 08:18 Carbohydrate Antigen 19-9 206134 Comments: Testing performed at: [facility], [address] [place] [address], [place], [address], , Furniture Detailer: KOURTNEY Wallace MD CA 19-9 1 U/mL [...] On 19-Feb-2017 10:00 Appointment; Provider: Tristan Garber M.D.|FACP|MTreva,FACP|KELLIE SheltonP, On September-2016 11:15 Instructions Name Dates Details Instructions not documented Encounters Appointment; Tristan Garber M.D.|FACP|MSihrleyDShirley,FACP|Cat,FACP, On 24-Aug-2016 Encounter Diagnosis: Problem not documented 11:00 Appointment; Tristan Garber M.D.|FACP|M.DShirley,FACP|Cat,FACP, On 27-Jul-2016 Encounter Diagnosis: Problem not documented 11:00 Appointment; Tristan Garber M.D.|FACP|MShirleyDShirley,FACP|Cat,FACP, On 18-Jul-2016 Encounter Diagnosis: Problem not documented 13:15 Appointment; Claudio Ritchie M.D. On 13-Jul-2016 Encounter Diagnosis: Problem not documented 11:30 Appointment; Caridad Kuhn On 13-Jul-2016 Encounter Diagnosis: Problem not documented 11:00 Appointment; Poornima العلي M.D. On 12-Jul-2016 Encounter Diagnosis: Problem not documented 11:30 Appointment; Tristan Garber M.D.|FACP|MShirleyDShirley,FACP|MTreva,FACP, On 06-Jul-2016 Encounter Diagnosis: Problem not documented [...] Problem not documented 13:15 Appointment; Tristan Garber M.D.|HBEERT|Cat,HEBERT|Cat,HEBERT, On Encounter Diagnosis: Problem not documented 09:00 Appointment; Tristan Garber M.D.|WILLIAN,HEBERT|Cat,HEBERT, On Encounter Diagnosis: Problem not documented 11:00"
--- OUTSIDE RECORDS SUMMARY | 2017-03-10 23:53 | External Medical Summary | Summary of Care ---
:1960 Author Name Mio Tipton APRNine Address [address] Unavailable [place], [place] [phone] Care Team Providers Name Role Phone Jcarlos [...] 1.73 m2 of body surface area. For -[place], please multiple result by 1.2.----- GLUCOSE 87 [...] 1260 On 05-Jan-2016 Intent MAGNESIUM 1260 On 11-Jan-2016 Intent CBC w/ Auto Diff 7150 On 11-Jan-2016 Intent Comprehensive Metabolic Panel 1212 On 11-Jan-2016 Intent Planned Goals not documented Planned Encounters Appointment; Provider: Tristan Garber M.D.|WILLIAN DORSEY FACP, On Dec-2015 10:15 Interventions Provided Medication ChangesDexamethasone 4 MG Oral Tablet - StartFolic Acid 1 MG Oral Tablet - Start Instructions Name Dates Details Instructions not documented Encounters Appointment; Tristan Garber M.D.|WILLIAN,ASHERD.,HEBERT, On 13-Dec-2015 Encounter Diagnosis: Problem not documented 13:15 Appointment; Tristan Garber M.D.|WILLIAN,HEBERT|Cat,HEBERT, On Encounter Diagnosis: Problem not documented 09:00 Appointment; Tristan Garber M.D.|WILLIAN,HEBERT|Cat,HEBERT, On Encounter Diagnosis: Problem not documented 11:00"
--- OUTSIDE RECORDS SUMMARY | 2017-03-10 23:53 | External Medical Summary | Summary of Care ---
:1960 Author Name Poornima العلي M.D. Address [address] Unavailable [place], [place] [phone] Care Team Providers Name Role Phone Poornima [...] Refills: 5 Jcarlos Shelton, FACP, , , Trisatn F Start 28-Dec-2015 Active Dexamethasone 4 MG [...] Pericardial Window THYROID STIM. HORMONE 3602 Ordered: 06-Jul-2016 FREE T4 3604 Ordered: 06-Jul-2016 Lipase 1275 Ordered: 06-Jul-2016 AMYLASE 1250 Ordered: 06-Jul-2016 MAGNESIUM 1260 Ordered: 06-Jul-2016 Comprehensive Metabolic Panel 1212 Ordered: 06-Jul-2016 CBC w/ Auto Diff 7150 Ordered: 06-Jul-2016 CBC w/ Auto Diff 7150 Ordered: 06-Jul-2016 CT CHEST/AB/PEL WITH ORAL AND [...] >60 ml/min Range: >60 EST GFR, NON-AFR CAMBODIAN >60 ml/min Range: >60 Comments: EST GFR [...] Appointment; Provider: Caridad Kuhn On 13-Jul-2016 11:00 Interventions Provided Medication ChangesAzithromycin 250 MG Oral Tablet - Completed Instructions Name Dates Details Instructions not documented Encounters Appointment; Tristan Garber M.D.|FACP|MShirleyDShirley,FACP|MTreva,FACP, On 06-Jul-2016 Encounter [...]
--- OUTSIDE RECORDS SUMMARY | 2017-03-10 23:53 | External Medical Summary ---
:1960 Author Name GENERATED, SYSTEM Care Team Providers Name Role Phone UNASSIGNED DOCTOR MD DON DOCTOR Primary Care Provider [phone] Reason For Visit Chief Complaint PE Social History Functional Status Vital Signs Results [...] been assessed.IV Contrast Allergy has not been assessed. Medication Medication reconciliation has not been performed.
--- OUTSIDE RECORDS SUMMARY | 2017-03-10 23:53 | External Medical Summary ---
:1960 Author Name GENERATED, SYSTEM Care Team Providers Name Role Phone UNASSIGNED DOCTOR MD DON DOCTOR Primary Care Provider [phone] Reason For Visit Reason for Visit from 09/04/2015 8:50 PM:Pt Stated Reason for Adm : Lovenox shotReason for Visit from 08/22/2015 7:45 PM:Pt Stated Reason for Adm : shotReason for Visit from 08/20/2015 7:39 PM:Pt Stated Reason for Adm : out patientReason for Visit from 08/15/2015 8:11 AM:Pt Stated Reason for Adm : Lovenox injections Chief Complaint PE Social History Functional Status Functional Status from 09/08/2015 7:32 PM:LOC : AlertOriented To : Person,Place, Time,EventFunctional Status from 09/08/2015 8:03 AM:LOC : AlertOriented To : Person,Place,Time,EventFunctional Status from 09/07/2015 7:40 PM:LOC : AlertOriented To : Person,Place,Time,EventFunctional Status from 09/07/2015 7:40 AM:LOC : AlertOriented To : Person,Place,TimeFunctional Status from 09/06/2015 8: 00 PM:LOC : AlertOriented To : Person,Place,Time,EventFunctional Status from 8:11 AM:LOC : AlertOriented To : Person,Place,Time,EventFunctional Status from 09/05/2015 7:50 PM:LOC : AlertOriented To : Person,Place, TimeFunctional Status from 09/05/2015 7:52 AM:LOC : AlertOriented To : Person, Place,Time,EventFunctional Status from 09/04/2015 8:50 PM:LOC : AlertOriented To : Person,Place,Time,EventFunctional Status from 09/04/2015 8:13 AM:LOC : AlertOriented To : Person,Place,Time,EventFunctional Status from 09/03/2015 7:30 PM:LOC : AlertOriented To : Person,Place,Time,EventFunctional Status from 2015 7:58 AM:LOC : AlertOriented To : Person,Place,TimeFunctional Status from 7:35 PM:LOC : AlertOriented To : Person,Place,Time,EventFunctional Status from 09/02/2015 8:05 AM:LOC : AlertOriented To : Person,Place, TimeFunctional Status from 09/01/2015 7:20 PM:LOC : AlertOriented To : Person, Place,Time,EventFunctional Status from 09/01/2015 8:10 AM:LOC : AlertOriented To : Person,Place,Time,EventFunctional Status from 08/31/2015 7:45 PM:LOC : AlertOriented To : Person,Place,Time,EventFunctional Status from 08/31/2015 8:04 AM:LOC : AlertOriented To : Person,Place,TimeFunctional Status from 08/30/2015 8: 05 PM:LOC : AlertOriented To : Person,Place,Time,EventFunctional Status from 8:09 AM:LOC : AlertOriented To : Person,Place,Time,EventFunctional Status from 08/29/2015 7:39 PM:LOC : AlertOriented To : Person,Place,Time, EventFunctional Status from 08/29/2015 8:00 AM:LOC : AlertOriented To : Person, Place,Time,EventFunctional Status from 08/28/2015 7:55 PM:LOC : AlertOriented To : Person,Place,Time,EventFunctional Status from 08/28/2015 7:50 AM:LOC : AlertOriented To : Person,Place,Time,EventFunctional Status from 08/27/2015 7:47 PM:LOC : AlertOriented To : Person,Place,Time,EventFunctional Status from 2015 8:00 AM:LOC : AlertOriented To : Person,Place,TimeFunctional Status from 03/2016 7:15 PM:LOC : AlertOriented To : Person,Place,Time,EventFunctional Status from 08/26/2015 7:58 AM:LOC : AlertOriented To : Person,Place,Time, EventFunctional Status from 08/25/2015 7:35 PM:LOC : AlertOriented To : Person, Place,Time,EventFunctional Status from 08/25/2015 8:03 AM:LOC : AlertOriented To : Person,Place,TimeFunctional Status from 08/24/2015 7:40 PM:LOC : AlertOriented To : Person,Place,Time,EventFunctional Status from 08/24/2015 8:00 AM:LOC : AlertOriented To : Person,Place,TimeFunctional Status from 08/23/2015 7:17 PM:LOC : AlertOriented To : Person,Place,Time,EventFunctional Status from 08/23/2015 8: 00 AM:LOC : AlertOriented To : Person,Place,Time,EventFunctional Status from 08/21 7:45 PM:LOC : AlertOriented To : Person,Place,Time,EventFunctional Status from 08/22/2015 8:05 AM:LOC : AlertOriented To : Person,Place,TimeFunctional Status from 08/21/2015 7:40 PM:LOC : AlertOriented To : Person,Place,Time, EventFunctional Status from 08/21/2015 8:00 AM:LOC : AlertOriented To : Person, Place,TimeFunctional Status from 08/20/2015 7:39 PM:LOC : AlertOriented To : Person,Place,Time,EventFunctional Status from 08/20/2015 8:05 AM:LOC : AlertOriented To : Person,Place,TimeFunctional Status from 08/19/2015 7:37 PM:LOC : AlertOriented To : Person,Place,TimeFunctional Status from 08/19/2015 7:56 AM: LOC : AlertOriented To : Person,Place,Time,EventFunctional Status from 08/18/2015 7:28 PM:LOC : AlertOriented To : Person,Place,Time,EventFunctional Status from 7:55 AM:LOC : AlertOriented To : Person,Place,TimeFunctional Status from 08/17/2015 7:45 PM:LOC : AlertOriented To : Person,Place,Time, EventFunctional Status from 08/17/2015 8:01 AM:LOC : AlertOriented To : Person, Place,TimeFunctional Status from 08/16/2015 7:40 PM:LOC : AlertOriented To : Person,Place,Time,EventFunctional Status from 08/16/2015 8:00 AM:LOC : AlertOriented To : Person,Place,TimeFunctional Status from 08/15/2015 7:40 PM:LOC : AlertOriented To : Person,Place,Time,EventFunctional Status from 08/15/2015 8: 11 AM:LOC : AlertOriented To : Person,Place,Time,Event Vital Signs Hospital Vital Signs from 09/08/2015 7:30 PM:Height : 5/10 ft,inTemperature : 98.4 FPulse : 90Respirations : 20BP : 112/76Hospital Vital Signs from 09/08/2015 8:07 AM:Height : 5/10 ft,inTemperature : 97.0 FPulse : 64Respirations : 18BP : 132/81Hospital Vital Signs from 09/07/2015 7:42 PM:Height : 5/10 ft, inTemperature : 96.9 FPulse : 94Respirations : 20BP : 140/77Hospital Vital Signs from 09/07/2015 7:40 AM:Height : 5/10 ft,inTemperature : 97.1 FPulse : 63Respirations : 18BP : 120/76Hospital Vital Signs from 09/06/2015 8:00 PM: Height : 5/10 ft,inBP : 135/78Hospital Vital Signs from 09/06/2015 8:44 AM: Height : 5/10 ft,inTemperature : 97.1 FPulse : 65Respirations : 18BP : 124/ 83Hospital Vital Signs from 09/06/2015 8:11 AM:Height : 5/10 ft,inTemperature : 97.1 FPulse : 65Respirations : 18BP : 118/79Hospital Vital Signs from 09/05/2015 7:48 PM:Height : 5/10 ft,inTemperature : 96.6 FPulse : 87BP : 143/70Hospital Vital Signs from 09/05/2015 7:52 AM:Height : 5/10 ft,inTemperature : 97.4 FPulse : 66Respirations : 18BP : 127/78Hospital Vital Signs from 09/04/2015 8:50 PM: Weight : 174/ lbs,ozHeight : 5/10 ft,inHospital Vital Signs from 09/04/2015 8:13 AM:Height : 5/10 ft,inTemperature : 98.3 FPulse : 69Respirations : 18BP : 118/ 72Hospital Vital Signs from 09/03/2015 7:35 PM:Height : 5/10 ft,inTemperature : 97.8 FPulse : 85Respirations : 20BP : 139/83Hospital Vital Signs from 09/03/2015 7:58 AM:Height : 5/10 ft,inTemperature : 96.9 FPulse : 48Respirations : 18BP : 114/76Hospital Vital Signs from 09/02/2015 7:35 PM:Height : 5/10 ft, inTemperature : 97.0 FPulse : 71Respirations : 18BP : 129/76Hospital Vital Signs from 09/02/2015 8:05 AM:Height : 5/10 ft,inTemperature : 98.2 FPulse : 65Respirations : 18BP : 113/72Hospital Vital Signs from 09/01/2015 7:25 PM: Height : 5/10 ft,inTemperature : 97.9 FPulse : 73Respirations : 18Hospital Vital Signs from 09/01/2015 8:15 AM:Height : 5/10 ft,inTemperature : 97.7 FPulse : 84Respirations : 18BP : 127/76Hospital Vital Signs from 08/31/2015 7:45 PM: Height : 5/10 ft,inTemperature : 97.8 FPulse : 88Respirations : 20BP : 141/ 77Hospital Vital Signs from 08/31/2015 8:04 AM:Height : 5/10 ft,inTemperature : 97.2 FPulse : 70Respirations : 18BP : 121/69Hospital Vital Signs from 08/30/2015 7:55 PM:Height : 5/10 ft,inTemperature : 96.8 FPulse : 80Respirations : 20BP : 138/80Hospital Vital Signs from 08/30/2015 8:09 AM:Height : 5/10 ft, inTemperature : 97.8 FPulse : 70Respirations : 18BP : 122/78Hospital Vital Signs from 08/29/2015 7:40 PM:Height : 5/10 ft,inTemperature : 97.0 FPulse : 76Respirations : 20BP : 124/77Hospital Vital Signs from 08/29/2015 8:06 AM: Height : 5/10 ft,inTemperature : 97.9 FPulse : 67Respirations : 18BP : 119/ 70Hospital Vital Signs from 08/28/2015 7:35 PM:Height : 5/10 ft,inTemperature : 96.7 FPulse : 75Respirations : 18BP : 121/69Hospital Vital Signs from 08/28/2015 7:58 AM:Height : 5/10 ft,inTemperature : 97.2 FPulse : 65Respirations : 18BP : 109/66Hospital Vital Signs from 08/27/2015 7:47 PM:Height : 5/10 ft, inTemperature : 97.6 FPulse : 86Respirations : 18BP : 123/77Hospital Vital Signs from 08/27/2015 8:00 AM:Height : 5/10 ft,inTemperature : 98.1 FPulse : 66Respirations : 18BP : 124/80Hospital Vital Signs from 08/26/2015 7:15 PM: Height : 5/10 ft,inPulse : 70Respirations : 18BP : 117/75Hospital Vital Signs from 08/26/2015 8:00 AM:Height : 5/10 ft,inTemperature : 97.0 FPulse : 60Respirations : 18BP : 113/67Hospital Vital Signs from 08/25/2015 7:35 PM: Height : 5/10 ft,inTemperature : 97.8 FPulse : 84Respirations : 20BP : 109/ 72Hospital Vital Signs from 08/25/2015 8:03 AM:Height : 5/10 ft,inTemperature : 97.9 FPulse : 76Respirations : 18BP : 134/83Hospital Vital Signs from 08/24/2015 7:40 PM:Height : 5/10 ft,inTemperature : 97.2 FPulse : 70Respirations : 18BP : 117/68Hospital Vital Signs from 08/24/2015 8:00 AM:Height : 5/10 ft, inTemperature : 97.1 FPulse : 69Respirations : 18BP : 125/70Hospital Vital Signs from 08/23/2015 7:17 PM:Height : 5/10 ft,inTemperature : 97.5 FPulse : 74Respirations : 20BP : 130/72Hospital Vital Signs from 08/23/2015 8:09 AM:Height : 5/10 ft,inTemperature : 98.1 FPulse : 73Respirations : 16BP : 126/63Hospital Vital Signs from 08/22/2015 7:45 PM:Weight : 175/0 lbs,ozHeight : 5/10 ft, inHospital Vital Signs from 08/22/2015 7:40 PM:Height : 5/10 ft,inTemperature : 97.3 FPulse : 82Respirations : 18BP : 120/68Hospital Vital Signs from 08/22/2015 8 :05 AM:Height : 5/10 ft,inTemperature : 97.6 FPulse : 72Respirations : 18BP : 115/71Hospital Vital Signs from 08/21/2015 7:40 PM:Height : 5/10 ft,inTemperature : 97.8 FPulse : 81Respirations : 18BP : 125/78Hospital Vital Signs from 2015 8:00 AM:Height : 5/10 ft,inTemperature : 97.5 FPulse : 73Respirations : 18BP : 132/78Hospital Vital Signs from 08/20/2015 7:39 PM:Weight : 1/ kgHeight : 5 /10 ft,inHospital Vital Signs from 08/20/2015 7:25 PM:Height : 5/10 ft, inTemperature : 97.9 FPulse : 81Respirations : 20BP : 123/80Hospital Vital Signs from 08/20/2015 8:05 AM:Height : 5/10 ft,inTemperature : 98.2 FPulse : 78Respirations : 18BP : 118/69Hospital Vital Signs from 08/20/2015 5:02 AM:Height : 5/10 ft,inTemperature : 97 FPulse : 83Respirations : 16BP : 128/71Hospital Vital Signs from 08/19/2015 7:57 AM:Height : 5/10 ft,inTemperature : 97.6 FPulse : 70Respirations : 16BP : 124/74Hospital Vital Signs from 08/18/2015 7:28 PM: Height : 5/10 ft,inTemperature : 96.8 FPulse : 93Respirations : 18BP : 139/ 81Hospital Vital Signs from 08/18/2015 7:56 AM:Height : 5/10 ft,inTemperature : 97.5 FPulse : 84Respirations : 18BP : 126/78Hospital Vital Signs from 08/17/2015 7 :45 PM:Height : 5/10 ft,inTemperature : 96.9 FPulse : 84Respirations : 18BP : 137/77Hospital Vital Signs from 08/17/2015 8:01 AM:Height : 5/10 ft,inTemperature : 97.0 FPulse : 74Respirations : 18BP : 115/69Hospital Vital Signs from 2015 7:40 PM:Height : 5/10 ft,inTemperature : 97.9 FPulse : 95Respirations : 18BP : 165/92Hospital Vital Signs from 08/16/2015 8:00 AM:Height : 5/10 ft, inTemperature : 97.2 FPulse : 79Respirations : 18BP : 127/79Hospital Vital Signs from 08/15/2015 7:40 PM:Height : 5/10 ft,inTemperature : 97.3 FPulse : 98Respirations : 20BP : 138/82Hospital Vital Signs from 08/15/2015 8:28 AM:Height : 5/10 ft,inTemperature : 98.0 FPulse : 80Respirations : 18BP : 114/74Hospital Vital Signs from 08/15/2015 8:11 AM:Weight : 187/ lbs,ozHeight : 5/10 ft,in Results Chemistry from 09/14/2015 4:48 AMVANCOMYCIN SGIWQV17.8 MCG/ML H (5.0-10.0 MCG/ML) Chemistry from 09/13/2015 4:30 [id number] MMOL/L (136-145 MMOL/L) POTASSIUM4.1 MMOL/L (3.5-5.1 MMOL/L) [id number] MMOL/L (98-107 MMOL/L) YDI008.6 MMOL/L (21.0-32.0 MMOL/L) *ANION GAP5.4 MMOL/L L (8.0-16.0 MMOL/L) BUN14 MG/DL (7-18 MG/DL) CREATININE1.09 MG/DL (0.70-1.30 MG/DL) *BUN/CREATININE RATIO12.8 (9.1-17.0 ) [id number] MG/DL H (65-99 MG/DL) *GFR EST NON AFR ZYNZIIYH96 ML/MIN *GFRA EST AFR AMER88 ML/MIN CALCIUM8.8 MG/DL (8.5-10.1 MG/DL)Chemistry from 09/12/2015 12:59 PMLACTIC ACID1.0 mmol/L (0.9-1.7 mmol/L)Chemistry from 09/12/2015 10:34 [id number] MMOL/ L (136-145 MMOL/L) POTASSIUM3.8 MMOL/L (3.5-5.1 MMOL/L) EVKBLUQB557 MMOL/L (98-107 MMOL/L) LJO728.7 MMOL/L (21.0-32.0 MMOL/L) *ANION GAP11.3 MMOL/L (8.0-16.0 MMOL/L) BUN15 MG/DL (7-18 MG/DL) CREATININE0.94 MG/DL (0.70-1.30 MG/DL) *BUN/CREATININE RATIO16.0 (9.1-17.0 ) ASHYVPO417 MG/DL H (65-99 MG/DL) *GFR EST NON AFR SAMOAN>90 ML/MIN *GFRA EST AFR AMER>90 ML/MIN CALCIUM9.1 MG/DL (8.5-10.1 MG/DL) BILIRUBIN TOTAL0.60 MG/DL (0.20-1.00 MG/DL) TOTAL PROTEIN7.9 GM/DL (6.4-8.2 GM/DL) ALBUMIN3.6 GM/DL (3.4-5.0 GM/DL) *GLOBULIN4.3 GM/DL H (2.3-3.5 GM/DL) *A/G RATIO0.8 MG/DL L (1.5-2.2 MG/DL) ALK PHOS63 U/L (46-116 U/L) ALT (SGPT)29 U/L (14-59 U/L) AST (SGOT)21 U/L (15-37 U/L) B-TYPE NATRIURETIC WMBGHBE32 PG/ML (1-100 PG/ML)Hematology from 09/13/2015 4:30 AMWBC7.7 X10e3/UL (3.6-11.2 X10e3/UL) RBC4.70 X10e6/UL (4.06-5.63 X10e6/UL) AGAXTGNTAA94.6 G/DL (12.5-16.3 G/DL) APMPORYTBL59.3 % (36.7-47.1 %) *MCV87.8 FL (80.0-100.0 FL) *MCH28.9 PG (27.0-33.0 PG) *MCHC32.9 G/DL (32.0-36.0 G/DL) *RDW16.9 % (12.3-17.0 %) *RDWSD52.1 H (37.1-47.8 ) FDLFYRQU600 X10e3/UL (159-386 X10e3/UL) *MPV7.7 FL (7.4-10.4 FL) AUTOMATED DIFFPERFORMED SEGS67.7 % *SMFBPXGZIIK58.1 % *MONOCYTES8.2 % *EOSINOPHILS5.0 % *BASOPHILS1.0 % *ABSOLUTE NEUTROPHILS5.20 X10e3/UL (1.80-7.80 X10e3/UL) *ABSOLUTE LYMPHOCYTES1.40 X10e3/UL (1.00-3.00 X10e3/UL) *ABSOLUTE MONOCYTES0.60 X10e3/UL (0.30-1.00 X10e3/UL) *ABSOLUTE EOSINOPHILS0.40 X10e3/UL (0.00-0.50 X10e3/UL) *ABSOLUTE BASOPHILS0.10 X10e3/UL (0.00-0.20 X10e3/UL)Hematology from 09/12/2015 10:34 AMWBC14.8 X10e3/UL H (3.6-11.2 X10e3/UL) RBC5.15 X10e6/UL (4.06-5.63 X10e6/UL) IUETKLFJHX45.8 G/DL (12.5-16.3 G/DL) UTCWHNACZY74.0 % (36.7-47.1 %) *MCV87.4 FL (80.0-100.0 FL) *MCH28.8 PG (27.0-33.0 PG) *MCHC33.0 G/DL (32.0-36.0 G/DL) *RDW16.5 % (12.3-17.0 %) *RDWSD50.3 H (37.1-47.8 ) USIQHWAW946 X10e3/UL (159-386 X10e3/UL) *MPV7.7 FL (7.4-10.4 FL) AUTOMATED DIFFPERFORMED SEGS83.0 % *LYMPHOCYTES9.3 % *MONOCYTES5.9 % *EOSINOPHILS1.2 % *BASOPHILS0.6 % *ABSOLUTE CSPRUCOJZEI23.30 X10e3/UL H (1.80-7.80 X10e3/UL) *ABSOLUTE LYMPHOCYTES1.40 X10e3/UL (1.00-3.00 X10e3/UL) *ABSOLUTE MONOCYTES0.90 X10e3/UL (0.30-1.00 X10e3/UL) *ABSOLUTE EOSINOPHILS0.20 X10e3/UL (0.00-0.50 X10e3/UL) *ABSOLUTE BASOPHILS0.10 X10e3/UL (0.00-0.20 X10e3/UL)Coagulation from 09/14/2015 4:48 AM*PROTHROMBIN TIME10.5 SECONDS (9.4-11.5 SECONDS) *INR1.0 (0.9-1.1 )Coagulation from 09/12/2015 10:34 AM*PROTHROMBIN TIME10.0 SECONDS (9.4-11.5 SECONDS) *INR1.0 (0.9-1.1 )Microbiology from 09/12/2015 12:59 PMCULTURE BLOOD ( Preliminary Result) Specimen Number: [id number] Sample Collection Date/Time: 09/12/2015 12:59 PM Specimen Source: Blood Peripheral CULTURE BLOOD: No growth after 24 hours of incubation, testing to continue for an additional 96 hours. No Growth after 48 hours of initial incubation, testing to continue for additional 72 hours. CULTURE BLOOD (Preliminary Result) Specimen Number: [id number] Sample Collection Date/Time: 09/12/2015 12:59 PM Specimen Source: Blood Peripheral CULTURE BLOOD: No growth after 24 hours of incubation, testing to continue for an additional 96 hours. No Growth after 48 hours of initial incubation, testing to continue for additional 72 hours. DX Radiology from 09/12/2015 10:25 AMCHEST 2 VIEWSHistory: fever / cough. Technique: 2 VIEW CHEST Priors: Findings: The heart size and pulmonary vasculature are within normal limits. There is subtle fullness of the left hilum compared with the right with ill-defined increased opacity in the left suprahilar region. There is a tiny right pleural effusion. No pneumothorax is seen. There is a remote left posterior 7th rib fracture deformity. Impression: Subtle asymmetric fullness of the left hilum with ill-defined increased opacity in the left suprahilar region. These findings could reflect focal pneumonia. Follow-up CT the chest however is suggested to exclude underlying mass. These nonemergent findings were not noted on the preliminary report provided by the emergency room provider therefore these findings were discussed with Dr. Barron on 09/12/2015 at approximately 11:20 a.m. Electronically signed by: Shadia Owusu MD Dictated: 09/12/2015 11:22CT Scan from 09/12/2015 12:02 PMCT CHEST (CTA)History: lung mass/ sob . Onset was 7-8 days ago, Pt had biopsy of lung from sternal notch approach 7 days ago - noted increased size of area and has a lump, at biopsy site pt obtained tympanic reading of 103 F last night , +cough. 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 Technique: Post contrast images were performed after the administration of 95 milliliters of Isovue intravenous contrast. 3 dimensional reconstructions were performed by the technologist. Priors: None. Findings: Heart Size: Normal. No significant right heart enlargement is seen. Aorta: Intact and normal in size. Mediastinum and Diane: There are postsurgical changes noted within the suprasternal notch. There are scattered areas of gas within the mediastinum and mild peritracheal soft tissue thickening near the jose. There has also soft tissue thickening of the pretracheal soft tissues at the level of the suprasternal notch. No discrete fluid collection is identified to suggest abscess. There are surgical clips noted within the superior mediastinum. There are enlarged mediastinal lymph nodes with the largest in the AP window measuring 1.5 x 1.5 centimeters. There is also an enlarged right peritracheal lymph node which measures 1.8 x 1.2 centimeters. There is ill-defined soft tissue thickening within the left hilum with nodular soft tissue density extending into the left upper lobe which measures approximately 3.1 x 2.1 centimeters as seen on series 6, image 33. There are mild reticulonodular within the medial left upper lobe which could reflect postobstructive pneumonia versus interstitial spread of neoplasm. Pulmonary Arteries: There are partially occlusive filling defects within the distal right main pulmonary artery extending into the proximal right upper right lower lobe pulmonary artery branches. Pleura: No effusion or pneumothorax. Pulmonary parenchyma: There is mild dependent bilateral lower lobe atelectasis. Upper abdomen: There are several low-density lesions within the liver which are incompletely characterized on this study. This could reflect metastases however cavernous hemangiomas or cysts are not excluded. Impression: Partially occlusive pulmonary arterial emboli within the distal right main pulmonary artery and proximal right upper and lower lobe pulmonary artery branches. These findings were discussed with Dr. Barron in the emergency department approximately 12:30 p.m. on 09/12/2015. Ill-defined soft tissue thickening within the left hilum and nodular soft tissue density extending into the left upper lobe. These findings are suggestive of bronchogenic neoplasm. Postsurgical changes of the mediastinum with peritracheal soft tissue thickening and scattered areas of gas and soft tissue stranding throughout the mediastinum. This could reflect postsurgical changes however mediastinitis cannot be excluded. No discrete abscess is identified. Reticular nodular infiltrates within the left upper lobe. These findings may reflect interstitial spread of neoplasm versus postobstructive pneumonia. Multiple low-density liver lesions which are indeterminate on this study. Follow-up CT of abdomen pelvis with contrast is suggested for further evaluation. Mediastinal lymphadenopathy consistent with metastatic disease. Electronically signed by: Shadia Owusu MD Dictated: 09/12/2015 12:24 Problems Encounter Diagnosis No relevant problems exist. Additional Problems Acute Pain Comment:Problem resolved by [facility] Work[facility] upon Discharge, Status: Resolved.Acute Pain Status:Active.Cellulitis of Trunk Status:Active.Deep Venous Thrombosis Comment:Problem resolved by [facility] Work[facility] upon Discharge, Status: Resolved.Fall Risk Comment:Problem resolved by [facility] Work[facility] upon Discharge, Status:Resolved.Infection Risk Status:Active.Mobility Impairment Comment: Problem resolved by [facility] Work[facility] upon Discharge, Status:Resolved.Non-Small Cell Lung Cancer Status:Active.Tobacco Use Comment:Problem resolved by [facility] Workflow [...]
--- OUTSIDE RECORDS SUMMARY | 2017-03-10 23:54 | External Medical Summary | Summary of Care ---
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 Charge MAGNESIUM 1.9 mg/dL Range: 1.8-2.4 14:23 PROTIME PANEL 7000 Comments: Items were attached to this order: PT, BLEACH BOILER FILLER Charge PROTIME 35.2 secs (Above high threshold) Range: 12.0-14.9 INR 3.47 14:23 Manual Differential 7400 Comments: Items were attached to this order: PT, BLEACH BOILER FILLER Charge SEGS 85 % (Above high threshold) [...] >60 ml/min Range: >60 EST GFR, NON-AFR [facility]EN[place]AL AFR[place] >60 ml/min Range: >60 Comments: EST [...] Observations CBC w/ Auto Diff 7150 On 11-Apr-2016 Intent MAGNESIUM 1260 On 11-Apr-2016 Intent CBC w/ Auto Diff 7150 On 18-Apr-2016 Intent MAGNESIUM 1260 On 18-Apr-2016 Intent CBC w/ Auto Diff 7150 On 24-Apr-2016 Intent Comprehensive Metabolic Panel 1212 On 24-Apr-2016 Intent MAGNESIUM 1260 On 24-Apr-[address] CHEST/AB/PEL WITH ORAL AND IV CONTRAST On 20-Apr-2016 Intent Planned Goals not documented Planned Encounters Appointment; Provider: Poornima العلي M.D. On 19-Feb-2017 10:00 Appointment; Provider: Tristan Garber M.D.|FACP|MTreva,FACP|Cat,FACP, On Apr-2016 13:00 Instructions Name Dates Details Instructions not documented Encounters Appointment; Tristan Garber M.D.|FACP|MShirleyDShirley,FACP|Cat,FACP, On 20-Mar-2016 Encounter [...] Problem not documented 16:00 Appointment; Tristan Garber M.D.|FACP|Cta,FACP|Cat,KELLIEP, On 11-Jan-2016 Encounter Diagnosis: Problem not documented 10:15 Appointment; Tristan Garber M.D.|FACP|Cat,FACP|Cat,FACP, On 28-Dec-2015 Encounter Diagnosis: Problem not documented 09:15 Appointment; Tristan Garber M.D.|FACP|Cat,FACP|Cat,KELLIEP, On 13-Dec-2015 Encounter Diagnosis: Problem not documented 13:15 Appointment; Tristan Garber M.D.|FACP|Cat,FACP|Cat,KELLIEP, On Encounter Diagnosis: Problem not documented 09:00 Appointment; Tristan Garber M.D.|FACP|Cat,FACP|Cat,FACP, On Encounter Diagnosis: Problem not documented 11:00"
--- OUTSIDE RECORDS SUMMARY | 2017-03-10 23:54 | External Medical Summary | Summary of Care ---
[...] C34.12) Status: Active Medications Name Dates Details PredniSONE 5 MG Oral Tablet TAKE 1 TABLET DAILY. Quantity: 30 Refills: 2 Jcarlos Shelton, HEBERT, , , Tristan F Start 06-Sep-2016 Active Folic Acid 1 MG Oral Tablet Take 1 tablet daily Quantity: 30 Refills: 5 Jcarlos Shelton, HEBERT, , , Tristan F Start 28-Dec-2015 Active Metoprolol Tartrate 50 MG Oral Tablet TAKE ONE TABLET BY MOUTH TWICE A DAY ( MORNING AND AT BEDTIME) Quantity: 180 Refills: 3 Yoli Villaew Start 09-Aug-2016 Active Warfarin Sodium 7.5 MG Oral Tablet TAKE 1 TABLET DAILY. Refills: 0 Start 17-Feb-2016 Active Nitroglycerin 0.4 MG Sublingual Tablet Sublingual PLACE 1 TABLET UNDER THE TONGUE EVERY 5 MINUTES FOR UP TO 3 DOSES NEEDED FOR CHEST PAIN.CALL 911 IF PAIN PERSISTS. Refills: 0 Start 17-Feb-2016 Active Ondansetron HCl [...] m2 Status: Results Date Description Value Details 21-Aug-2016 09:58 CBC w/ Auto Diff 7150 [...] Range: 0.80-1.67 22-Aug-2016 08:18 Carbohydrate Antigen 19-9 [id number] Comments: [facility] performed at: [facility], [address] [place] [address], [place], [address], , Montessori Teacher: KOURTNEY Wallace MD [place] 19-9 1 U/mL [...] On 19-Feb-2017 10:00 Appointment; Provider: Tristan Garber M.D.|FACP|Cat,KELLIEPHEBERT Chappell, On September-2016 11:15 Interventions Provided Labs/Procedures/ImagingCBC w/ Auto Diff 7150; Done: Aug 30 2016 1:20PMCBC w/ Auto Diff 7150; Done: Sep 06 2016 8:40AMCBC w/ Auto Diff 7150; Done: Sep 13 2016 1:30PM Instructions Name Dates Details Instructions not documented Encounters Appointment; Tristan Garber M.D.|FACP|MShirleyDShirley,FACP|Cat,FACP, On 27-Jul-2016 Encounter Diagnosis: Problem not documented 11:00 Appointment; Tristan Garber M.D.|FACP|Cat,FACP|Cat,KELLIEP, On 18-Jul-2016 Encounter Diagnosis: Problem not documented 13:15 Appointment; Claudio Ritchie M.D. On 13-Jul-2016 Encounter Diagnosis: Problem not documented 11:30 Appointment; Caridad Kuhn On 13-Jul-2016 Encounter Diagnosis: Problem not documented 11:00 Appointment; Poornima العلي M.D. On 12-Jul-2016 Encounter Diagnosis: Problem not documented 11:30 Appointment; Tristan Garber M.D.|FACP|M.DShirley,FACP|Cat,FACP, On 06-Jul-2016 Encounter Diagnosis: Problem not documented [...] Problem not documented 10:15 Appointment; Tristan Garber M.D.|FACP|M.DShirley,HEBERT|Cat,HEBERT, On 28-Dec-2015 Encounter Diagnosis: Problem not documented 09:15 Appointment; Tristan Garber M.D.|WILLIAN,HEBERT|Cat,HEBERT, On 13-Dec-2015 Encounter Diagnosis: Problem not documented 13:15 Appointment; Tristan Garber M.D.|WILLIAN,HEBERT|Cat,HEBERT, On Encounter Diagnosis: Problem not documented 09:00 Appointment; Tristan Garber M.D.|WILLIAN,HEBERT|Cat,HEBERT, On Encounter Diagnosis: Problem not documented 11:00"
--- OUTSIDE RECORDS SUMMARY | 2017-03-10 23:54 | External Medical Summary | Summary of Care ---
[...] >60 ml/min Range: >60 EST GFR, NON-AFR BELARUSIAN >60 ml/min Range: >60 Comments: EST GFR [...] Adequate HYPOCHRO Slight POLYCHRO Slight TOXIC Present Plan of Care Name Dates Details Planned Observations Planned Goals not documented Instructions Name Dates Details Instructions not documented Encounters Appointment; Tristan Garber M.D.|WILLIAN,HEBERT|Cat,HEBERT, On 11-Jan-2016 Encounter Diagnosis: Problem not documented 10:15 Appointment; Tristan Garber M.D.|WILLIAN,WILLIAN,HEBERT, On 28-Dec-2015 Encounter Diagnosis: Problem not documented 09:15 Appointment; Tristan Garber M.D.|WILLIAN,HEBERT|Cat,HEBERT, On 13-Dec-2015 Encounter Diagnosis: Problem not documented 13:15 Appointment; Tristan Garber M.D.|WILLIAN,HEBERT|Cat,HEBERT, On Encounter Diagnosis: Problem not documented 09:00 Appointment; Tristan Garber M.D.|WILLIAN,WILLIAN,HEBERT, On Encounter Diagnosis: Problem not documented 11:00"
--- OUTSIDE RECORDS SUMMARY | 2017-03-10 23:54 | External Medical Summary | Summary of Care ---
[...] m2 Status: Results Date Description Value Details 27-Jan-2016 09:31 CBC w/ Auto Diff 7150 [...] 02/04/2016 10:20 CONTRAST XC CHEST/AB 45 MIN CA 07-Feb-2016 09:53 MAGNESIUM 1260 MAGNESIUM 2.2 mg/dL [...] Range: >60 EST GFR, NON-AFR CITIZEN OF [place] >60 ml/min Range: >60 Comments: EST GFR [...] Observations CBC w/ Auto Diff 7150 On 13-Feb-2016 Intent Planned Goals not documented Planned Encounters Appointment; Provider: Poornima العلي M.D. On 19-Feb-2017 10:00 Appointment; Provider: Tristan Garber M.D.|WILLIAN DORSEY,HEBERT, On Feb-2016 14:15 Appointment; Provider: Sarkis Woods M.D. On 29-Feb-2016 09:30 Appointment; Provider: Schedule Radiology On 17-Feb-2016 08:00 [...] Problem not documented 10:15 Appointment; Tristan Garber M.D.|WILLIAN,HEBERT|Cat,HEBERT, On 28-Dec-2015 Encounter Diagnosis: Problem not documented 09:15 Appointment; Tristan Garber M.D.|HEBERT|Cat,HEBERT|Cat,HEBERT, On 13-Dec-2015 Encounter Diagnosis: Problem not documented 13:15 Appointment; Tristan Garber M.D.|HEBERT|Cat,HEBERT|Cat,HEBERT, On Encounter Diagnosis: Problem not documented 09:00 Appointment; Tristan Garber M.D.|WILLIAN,HEBERT|Cat,HEBERT, On Encounter Diagnosis: Problem not documented 11:00"
--- OUTSIDE RECORDS SUMMARY | 2017-03-10 23:54 | External Medical Summary ---
:1960 Author Name GENERATED, SYSTEM Care Team Providers Name Role Phone MD MEDINA CLARICE Primary Care Provider [phone] Reason For Visit Chief Complaint DEHYDRATED Social History Functional Status Vital Signs Results Chemistry from 12/09/2015 12:24 [id number] MMOL/L (136-145 MMOL/L) POTASSIUM3.1 MMOL/L L (3.5-5.1 MMOL/L) QKMCBYBB219 MMOL/L (98-107 MMOL/L) KZX353.5 MMOL/L (21.0-32.0 MMOL/L) *ANION GAP10.5 MMOL/L (8.0-16.0 MMOL/L) BUN18 MG/DL (7-18 MG/DL) CREATININE1.15 MG/DL (0.70-1.30 MG/DL) *BUN/CREATININE RATIO15.7 (9.1-17.0 ) LQYFFQQ662 MG/DL H (65-99 MG/DL) *GFR EST NON AFR LDWIIKGR46 ML/MIN *GFR EST AFR AMER82 ML/MIN CALCIUM9.2 MG/DL (8.5-10.1 MG/DL) BILIRUBIN TOTAL0.70 MG/DL (0.20-1.00 MG/DL) TOTAL PROTEIN8.0 GM/DL (6.4-8.2 GM/DL) ALBUMIN3.3 GM/DL L (3.4-5.0 GM/DL) *GLOBULIN4.7 GM/DL H (2.3-3.5 GM/DL) *A/G RATIO0.7 MG/DL L (1.5-2.2 MG/DL) ALK PHOS92 U/L (46-116 U/L) ALT (SGPT)53 U/L (14-59 U/L) AST (SGOT)32 U/L (15-37 U/L) MAGNESIUM2.4 MG/DL (1.8-2.4 MG/DL) PHOSPHORUS3.5 MG/DL (2.6-4.7 MG/DL) OETXIE362 U/L (73-393 U/L) TSH0.537 UIU/ML (0.340-4.820 UIU/ML)Hematology from 12/09/2015 12:24 PMWBC6.9 X10e3/UL (3.6-11.2 X10e3/UL) RBC4.95 X10e6/UL (4.06-5.63 X10e6/UL) NFMKEALVCF52.8 G/DL (12.5-16.3 G/DL) RJVNZUFMIP78.3 % (36.7-47.1 %) *MCV83.3 FL (80.0-100.0 FL) *MCH28.0 PG (27.0-33.0 PG) *MCHC33.6 G/DL (32.0-36.0 G/DL) *RDW15.7 % (12.3-17.0 %) *RDWSD46.4 (37.1-47.8 ) FGOHWCZO638 X10e3/UL (159-386 X10e3/UL) *MPV7.3 FL L (7.4-10.4 FL) AUTOMATED DIFFPERFORMED SEGS85.2 % *LYMPHOCYTES5.1 % *MONOCYTES7.8 % *EOSINOPHILS1.2 % *BASOPHILS0.7 % *ABSOLUTE NEUTROPHILS5.90 X10e3/UL (1.80-7.80 X10e3/UL) *ABSOLUTE LYMPHOCYTES0.40 X10e3/UL L (1.00-3.00 X10e3/UL) *ABSOLUTE MONOCYTES0.50 X10e3/UL (0.30-1.00 X10e3/UL) *ABSOLUTE EOSINOPHILS0.10 X10e3/UL (0.00-0.50 X10e3/UL) *ABSOLUTE BASOPHILS0.00 X10e3/UL (0.00-0.20 X10e3/UL)Coagulation from 12/09/2015 12:24 PM*PROTHROMBIN TIME89.7 SECONDS H (9.4-11.5 SECONDS) *INR8.7 HH (0.9-1.1 ) PARTIAL THROMBOPLASTIN TIME78.7 SECONDS H (23.0-31.0 SECONDS)Microbiology from 12:35 PMGROUP A STREP, RAPID AG Specimen Number: [id number] Sample Collection Date/Time: 12/09/2015 12:35 PM Specimen Source: Throat GROUP A STREP, RAPID AG: NEGATIVE FOR GROUP A STREP CT Scan from 12/09/2015 1:31 PMCT NECK W/ CONTRASTHistory: dysphagia, lung CA . Syp-hgrep-exnj lung carcinoma status post radiation therapy. Patient cannot eat and drink. Throat hastings. Technique: The Study was performed with 75ml of Isovue 300 IV contrast. Priors: None. Findings: Pharynx/base of tongue: Normal. Larynx: Normal. Parotid glands: Normal. Submandibular glands: Normal. Thyroid: Appears diffusely enlarged, heterogeneous/edematous with thickening of the isthmus measuring 11 mm. The right lobe measures 5.5 cm by 3.5 cm x 2.2 cm. The left lobe measures 5 cm by 3.5 cm x 2.5 cm. Findings suspicious for thyroiditis. Lymphadenopathy: There multiple necrotic bilateral jugular and bilateral supraclavicular lymph nodes consistent metastatic disease. The largest in the right jugular chain measures 2.5 x 1.6 cm. The largest in left jugular chain measures 3.5 cm x 1.3 cm. Lung apices: Normal. Impression: Diffuse enlargement and edema of the thyroid gland suspicious for thyroiditis. Correlation laboratory function tests is recommended. Moderate to severe bilateral jugular and supraclavicular lymphadenopathy consistent metastatic disease. Unremarkable appearing pharynx and larynx without evidence of significant inflammatory change or parapharyngeal fluid collection. Electronically signed by: Otilio Bateman MD Dictated: 12/09/2015 13:47 Problems Encounter Diagnosis No relevant problems exist. [...]
--- OUTSIDE RECORDS SUMMARY | 2017-03-10 23:54 | External Medical Summary ---
:1960 Author Name GENERATED, SYSTEM Care Team Providers Name Role Phone MD MEDINA CLARICE Primary Care Provider [phone] Reason For Visit Reason for Visit from 09/11/2016 10:10 AM:Pt Stated Reason for Adm : NS Chief Complaint DEHYDRATION E86.0 LUNG CA Social History Functional Status Functional Status from 09/11/2016 10:10 AM:LOC : AlertOriented To : Person,Place, Time,Event Vital Signs Hospital Vital Signs from 09/11/2016 10:48 AM:Height : 5/11 ft,inTemperature : 97.8 FPulse : 62Respirations : 16BP : 96/53Hospital Vital Signs from 09/11/2016 10:10 AM:Weight : 170/ lbs,ozHeight : 5/11 ft,in Results Problems Encounter Diagnosis No relevant problems [...] Plan of Care Procedures Completed Procedure Code: [id number] Procedure Name: not valued, on 12/19/2015 10: 46 AMCompleted Procedure Code: [id number] Procedure Name: not valued, on 12/19/2015 10:38 AMCompleted Procedure Code: [id number] Procedure Name: not valued, on 2015 12:00 AMCompleted Procedure Code: [id number] Procedure Name: not valued, on 12:00 AM Immunizations No immunizations administered or ordered. Hospital Course Hospital Discharge Instructions Allergies, Adverse Reactions, Alerts This section is financial representative of the current allergy information, at [...]
--- OUTSIDE RECORDS SUMMARY | 2017-03-10 23:55 | External Medical Summary | Continuity of Care Document ---
:1960 Author Organization [facility] Allergies Active Description Code Type Severity Reaction Onset Reported/ Identified Relationship Clinical to Patient Status Yes Penicillins Penic Drug Unknown RASH 07/21/2015 illin Aller s gy Yes Penicillins Penic Drug Unknown RASH 07/21/2015 illin Aller s gy Medications Problems Date Dx Attending Type Code Diagnosis Diagnosed By Coded 06/28/2015 JOSÉ HASTINGS L78383 Nicotine dependence, cigarettes, uncomplicated 06/28/2015 JOSÉ HASTINGS D60377 Acute embolism and thrombosis of right popliteal vein 06/28/2015 JOSÉ HASTINGS Z7901 prison (current) use of anticoagulants 06/28/2015 JOSÉ HASTINGS V36887 Other [facility] (current) drug therapy 02/14/2016 Janak FLORES C3490 Malignant neoplasm of YENNIFER A unsp part of unsp bronchus or lung 02/14/2016 Janak FLORES C770 Sec and unsp malig YENNIFER A neoplasm of nodes of head, face and neck 02/14/2016 Janak FLORES D473 Essential YENNIFER A (hemorrhagic) thrombocythemia 02/14/2016 Janak FLORES D638 Anemia in other YENNIFER A chronic diseases classified elsewhere 02/14/2016 Janak FLORES Z35196 Elevated white blood YENNIFER A cell count, unspecified 02/14/2016 Janak FLORES B91666 Nicotine dependence, YENNIFER A cigarettes, uncomplicated 02/14/2016 Janak FLORES I10 Essential (primary) YENNIFER A hypertension 02/14/2016 Janak FLORES I4891 Unspecified atrial YENNIFER A fibrillation 02/14/2016 Janak FLORES N53521 Acute embolism and YENNIFER A thrombosis of deep veins of r up extrem 02/14/2016 Janak FLROES J398 Other specified YENNIFER A diseases of upper respiratory tract 02/14/2016 Jaank FLORES R1310 Dysphagia, unspecified YENNIFER A 02/14/2016 Janak FLORES Z7901 prison (current) YENNIFER A use of anticoagulants 02/14/2016 Janak FLORES U12238 Personal history of YENNIFER A pulmonary embolism 03/01/2016 D C3490 Malignant neoplasm of unsp part of unsp bronchus or lung 03/01/2016 D C7931 Secondary malignant neoplasm of brain 03/01/2016 D 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 03/01/2016 A D649 Anemia, unspecified 03/01/2016 D G23596 Nicotine dependence, unspecified, uncomplicated 03/01/2016 D I471 Supraventricular tachycardia 03/01/2016 D I4891 Unspecified atrial fibrillation 03/01/2016 D R531 Weakness 03/01/2016 D 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 Visit Discharge Status Pt. Type Provider Facility Loc./Unit Complaint Date/Time [id number] 07/23/2015 07/26/2015 DIS Inpatipedro luis Alicea MD, Brock SheetsT3 5348 01:46:00 13:30:00 t [facility] [id number] 07/21/2015 07/21/2015 DIS Emergenc Bjorn OCHOA, Brock SheetsED 3281 09:18:00 10:24:00 y [facility] [id number] 09/10/2015 09/10/2015 DIS Outpatie Dakota FooteOPRA 4459 04:59:00 13:00:00 moises OCHOA, [facility] [id number] 07/22/2015 07/23/2015 DIS Emergenc Mojgan HawkinsShirleyEDS 7677 22:08:00 01:32:00 y [facility] [id number] 02/12/2017 02/26/2017 DIS Outpatie ALBAN RAMOS UPPER 379 09:36:00 14:23:45 nt STERNAL MASS [id number] 11/27/2016 12/25/2016 DIS Outpatie ALBAN RAMOS NECK LESION 678 13:00:00 10:06:39 nt [id number] 09/11/2016 09/12/2016 DIS Outpatie ESTEPHAN, DEHYDRATION 484 10:02:00 03:30:00 nt ISAMAR E86.0 LUNG [place] [id number] 07/06/2016 07/13/2016 DIS Outpatie UNASSIGNED DIZZINESS/LI 756 23:37:00 16:58:26 nt DOCTOR [facility] HEADED DOCTOR [id number] 07/06/2016 07/07/2016 DIS Emergenc FRANKY, <PV2.3.2& 073 00:00:00 23:17:57 y PAKO gt;Dizziness and giddiness&lt ;/PV2.3.2&gt ;<PV2.3.2 >DIZZY&lt ;/PV2.3.2&gt ;<PV2.3.2 >Palpitat ions</PV2 .3.2>< PV2.3.2>P leural effusion, not elsewhere classified&l t;/PV2.3.2&g t;<PV2.3. 2>Dizzine ss and giddiness&lt ;/PV2.3.2&gt ;<PV2.3.2 >prison (current) use of anticoagulan ts</PV2.3 .2><PV 2.3.2>Per fani history of other venous thrombosis and embolism< /PV2.3.2> <PV2.3.2& gt;Personal history of pulmonary embolism< /PV2.3.2> <PV2.3.2& gt;Nicotine dependence, cigarettes, uncomplicate d</PV2.3. 2> [id number] 06/23/2016 06/24/2016 DIS Outpatie CAROL, R51 156 13:27:00 03:30:00 nt NADINE Ogden [id number] 03/16/2016 04/16/2016 DIS Outpatie ESTEPHAN, ANEMIA/LUNG 022 00:01:00 00:14:56 nt ISAMAR CA [id number] 02/18/2016 03/16/2016 DIS Outpatie ESTEPHAN, ANEMIA/LUNG 014 14:29:00 00:14:48 nt ISAMAR CA [id number] 03/11/2016 03/12/2016 DIS Emergenc SLOMKA, HEMMORHOIDS 408 13:12:00 07:27:21 y DANIELITO [id number] 02/13/2016 02/29/2016 DIS Outpatie UNASSIGNED CHEST PAIN 244 17:10:00 11:53:01 nt DOCTOR, DOCTOR [id number] 02/13/2016 02/14/2016 DIS Inpatien CHRISTIANO HASTINGS LOW BP 927 22:36:00 16:25:57 t JOSÉ Lowery [id number] 02/11/2016 02/13/2016 DIS Inpatien HOUNSHELL, <PV2.3.2& 863 01:18:00 16:58:45 t YENNIFER A gt;Acute embolism and thrombosis of deep veins of r up extrem</P V2.3.2>&l t;PV2.3.2&gt ;CHEST PAIN, LUNG CANCER</P V2.3.2>&l t;PV2.3.2&gt ;Acute embolism and thrombosis of deep veins of r up extrem</P V2.3.2>&l t;PV2.3.2&gt ;Malignant neoplasm of unsp part of unsp bronchus or lung</PV2 .3.2>< PV2.3.2>S ec and unsp malig neoplasm of nodes of head, face and neck</PV2 .3.2>< PV2.3.2>O ther specified diseases of upper respiratory tract</PV 2.3.2>&lt ;PV2.3.2> Unspecified atrial fibrillation </PV2.3.2 ><PV2. 3.2>Perso nal history of pulmonary embolism< /PV2.3.2> <PV2.3.2& gt;Essential (primary) hypertension </PV2.3.2 ><PV2. 3.2>Nicot ine dependence, cigarettes, uncomplicate d</PV2.3. 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 3.2><P V2.3.2>El evated white blood cell count, unspecified& lt;/PV2.3.2& gt; [id number] 12/18/2015 12/27/2015 DIS Inpatien DARLING, ARIANET 790 10:40:00 08:34:26 t JOSÉ Lowery [id number] 12/17/2015 12/24/2015 DIS Emergenc JAMILAH DEHYDRATED 261 09:17:00 14:17:59 y DANIELITO [id number] 12/18/2015 12/18/2015 CLS Outpatie UNASSIGNED DIFFICULTY 016 07:39:00 23:59:59 nt DOCTOR, BREATHING DOCTOR [id number] 12/09/2015 12/09/2015 DIS Emergenc EDU DEHYDRATED 694 11:52:00 21:39:29 y XIAO [id number] 10/15/2015 10/22/2015 DIS Outpatie TOBI ALICEA 041 00:01:00 13:36:48 nt KAYLAH [id number] 09/15/2015 10/15/2015 DIS Outpatie TOBI ALICEA 033 00:01:00 00:14:48 nt SELVALERY [id number] 09/12/2015 09/20/2015 DIS Inpatien GARCIA, PNEUMONIA, 924 15:24:00 23:13:12 t MAC LUNG CANCER I N [id number] 08/15/2015 09/15/2015 DIS Outpatie NIXON, PE 025 00:01:00 00:14:30 nt SELIM [id number] 07/26/2015 08/15/2015 DIS Outpatie NIXON PE 017 19:59:00 00:14:42 nt SELIM [id number] 06/22/2015 06/30/2015 DIS Outpatie ROSALIAER, 016 12:41:00 07:43:37 nt JOSÉ L [id number] 06/20/2015 06/21/2015 DIS Outpatie TANZER, 224 14:00:00 14:55:59 nt JOSÉ L [id number] 03/07/2017 ACT Inpatien LELAND, INTARABDOMIN 667 19:32:00 t DEE DEE Trinh [facility] [id number] 02/19/2016 Document 531 14:10:00 Registra tion
--- NOTE | 2017-03-11 00:04 | Emergency Department Report ---
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 Patient was recently admitted on 03/07 to [facility] for pain and nutritional control, since he has gotten to the point now where he is unable to eat or drink. Patient requires frequent doses of 3 mg of morphine to control his pain, and parents are no traction. Over the course of his clinical care with Dr. Garber, his oncologist, he had been offered hospice multiple times but has declined. The patient was apparently dismissed from the hospital today and transferred to [facility] where he and his family were told that he would receive "the same level of care" as he was getting in the hospital. When the patient arrived he found out that he had been made a DO NOT RESUSCITATE against his wishes, and that they could not provide parent Alpesh nutrition which she requires. Rather than really admit the patient directly back to the hospital, he was instructed to go to the ER and required to be reevaluated. Apparently someone in the ER registration process told the patient it would be over 4 hours before anyone could see him, and this insult as well as feeling as though he and his family had been lied to, caused the patient to drive an hour to [facility] to be admitted. Patient states that he simply wants to live until Sunday when his family can come back in town, that he does not want to be a DO NOT RESUSCITATE, but he does require IV medication and IV nutrition. I spoke with Dr. Mishra, [facility] hospitalist, who confirmed that the patient had suddenly been made DO NOT RESUSCITATE, and was transferred to the above-named facility. I was able to speak with a applications sales representative from the facility who also stated that they were instructed the patient "came here to ." When he was told that he had been made a DO NOT RESUSCITATE and that he would not receive any further parent Alpesh nutrition, the patient immediately wanted to be readmitted to the hospital. - Related Data Home Medications Medication Instructions Recorded Confirmed Folic Acid [Folate] 1 mg PO DAILY 03/11/17 03/11/17 Metoprolol Tartrate [Lopressor] 50 mg PO BID 03/11/17 03/11/17 Ondansetron HCl 8 mg PO Q6-8HPRN 03/11/17 03/11/17 Oxycodone *IR* [Roxicodone *Ir*] 1 tab PO Q4H PRN 03/11/17 03/11/17 PredniSONE [Deltasone] 1 tab PO DAILY 03/11/17 03/11/17 Prochlorperazine Maleate 10 mg PO Q6-8HPRN PRN 03/11/17 03/11/17 [Compazine] Warfarin Sodium [Warfarin Sodium] 7.5 mg PO DAILY 03/11/17 03/11/17 Allergies Allergy/AdvReac Type Severity Reaction Status Date / Time Penicillins Allergy Verified 03/10/17 23:49 Review of Systems All systems: reviewed and negative except as stated PFSH Patient Stated Medical History Hypertension Yes Other Respiratory Yes: STAGE 4 SMALL CELL LUNG CANCER Hypertension Chronic chest pain Metastatic lung cancer Adrenal gland cancer Cancer related pain Pericardial effusion Frequent dehydration Dysphagia Questionable DVT/PE history - Social History Smoking status: Current every day smoker Substance use type: does not use Alcohol intake frequency: does not drink Physical Exam - Limitations Limitations: no limitations - General General appearance: alert - Normal Exams: Head:: Normocephalic without trauma Eyes:: Pupils are PERRLA w/ EOMI, No scleral icterus, irritation, or foreign bodies noted ENMT:: No facial trauma, nasal exudates, pharyngeal erythema, or exudates are noted - Neck Neck exam: Present: full ROM, trachea midline, other (patient has a large upper sternal nodule that he states is one of his tumors, external to the upper notch of the sternum.). Absent: tenderness - Chest Chest inspection: Present: normal inspection, symmetric chest wall rise. Absent : tenderness - Respiratory Respiratory exam: Absent: normal lung sounds bilaterally (course bilaterally), respiratory distress, wheezes, accessory muscle use, prolonged expiratory phase - Cardiovascular Cardiovascular exam: Present: regular rate, normal rhythm, normal heart sounds, +S1, +S2. Absent: systolic murmur, diastolic murmur, +S3, +S4 - Abdominal Exam Abdominal exam: Present: soft, tenderness (mild diffuse tenderness, no guarding no rebounding), normal bowel sounds. Absent: distention, guarding, rebound, psoas sign, obturator sign, Chong's sign, hernia - Extremities Exam Extremities exam: Present: normal capillary refill. Absent: tenderness, pedal edema - Skin Skin exam: Present: warm, dry. Absent: rash - Neurological Exam Neurological exam: Present: alert, normal gait. Absent: motor sensory deficit - Psychiatric Psychiatric exam: Present: normal affect, normal mood Course Vital Signs Temperature 98.6 F 03/10/17 23:15 Pulse Rate 119 H 03/10/17 23:15 Respiratory Rate 16 03/10/17 23:15 Blood Pressure 126/80 03/10/17 23:15 Pulse Oximetry 94 03/10/17 23:15 Temperature 98.6 F 03/10/17 23:15 Pulse Rate 119 H 03/10/17 23:15 Respiratory Rate 16 03/10/17 23:15 Blood Pressure 126/80 03/10/17 23:15 Pulse Oximetry 94 03/10/17 23:15 Medical Decision Making - [facility] Narrative Medical decision making narrative: Patient started on IV fluids, given 3 mg morphine per his request, and Zofran 4 mg IV - CBC - modestly elevated white blood cell count, 100% neutrophils CMP/L - normal Patient is discussed with Dr. Chavo Cartagena - patient will be admitted inpatient, for IV fluids, nutritional evaluation, with an NG tube placed, pain and nausea management, and consultation with his oncologist as soon as he is available. I did have a tierra conversation with the patient about his wishes as far as resuscitation, and he would like everything done in the event of cardiac or respiratory arrest, until it is felt that the efforts are futile. - Lab Data Result diagrams: 03/11/17 00:06 03/11/17 00:06 Lab Results 03/11/17 03/11/17 Range/Units 00:06 00:06 WBC 14.5 H (4.5-11.0) T/MM3 RBC 3.74 L (4.50-5.90) M/MM3 Hgb 9.1 L (13.5-17.5) GM/DL Hct 29.3 L (41-53) % MCV 78.3 L (80-100) UM3 MCH 24.3 L (26-34) UUG MCHC 31.1 (31-37) GM/DL RDW Std Deviation 47.5 (36.9-50.2) FL Plt Count 215 (130-400) T/MM3 MPV 10.1 (9.4-12.4) UM3 Immature Gran % (Auto) Not performed Neut % (Auto) Not performed Lymph % (Auto) Not performed Hamblen % (Auto) Not performed Eos % (Auto) Not performed Baso % (Auto) Not performed Neut # (Auto) Not performed Lymph # (Auto) Not performed Hamblen # (Auto) Not performed Eos # (Auto) Not performed Baso # (Auto) Not performed Abs Immat Gran (auto) Not performed Neutrophils % (Manual) 100.0 H (33-66) % Neutrophils # (Manual) 14.5 H (1.8-7.7) T/MM3 Tear Drop Cells 2+ RBC Morph Comment Abnormal Turbidity < 20 (0-20) Sodium 139 (134-144) MEQ/L Potassium 3.8 (3.6-5) MEQ/L Chloride 106 (98-107) MEQ/L Carbon Dioxide 21 L (22-30) MEQ/L Anion Gap 12 (5-15) MEQ/L BUN 20.0 (9-20) MG/DL Creatinine 0.8 (0.8-1.5) MG/DL GFR Calculation 100 BUN/Creatinine Ratio 25 (6-26) RATIO Glucose 83 (75-110) MG/DL Calculated Osmolality 270 (261-280) MOSM/KG Calcium 8.8 (8.4-10.2) MG/DL Total Bilirubin 0.50 (0.20-1.30) MG/DL Conjugated Bilirubin 0.00 (0.00-0.30) MG/DL Unconjugated Bilirubin 0.20 (0.00-1.1) MG/DL Icterus Index < 2 (0-7) AST 21 (17-59) U/L ALT 24 (21-72) U/L Alkaline Phosphatase 88 (38-126) U/L Total Protein 5.9 L (6.3-8.2) G/DL Albumin 2.6 L (3.5-5.0) G/DL Globulin 3.3 (2.4-3.6) G/DL Albumin/Globulin Ratio 0.8 L (1.1-2.2) RATIO Lipase 18 L (23-300) U/L Specimen Hemolysis < 15 (0-25) Disposition Clinical Impression: Metastatic lung cancer (metastasis from lung to other site) Qualifiers: Laterality: left Qualified Code(s): C34.92 - Malignant neoplasm of unspecified part of left bronchus or lung [place] [facility] [place] Condition: Stable Prescriptions: No Action Prochlorperazine Maleate [Compazine] 10 mg PO Q6-8HPRN PRN PRN Reason: Nausea PredniSONE [Deltasone] 1 tab PO DAILY Oxycodone *IR* [Roxicodone *Ir*] 1 tab PO Q4H PRN PRN Reason: Pain Ondansetron HCl 8 mg PO Q6-8HPRN Metoprolol Tartrate [Lopressor] 50 mg PO BID Warfarin Sodium [Warfarin Sodium] 7.5 mg PO DAILY Folic Acid [Folate] 1 mg PO DAILY Referrals: Malu Rosales MD [Primary Care Provider] - - Seen By: physician
[2017-03-11] MEDS: SALINE FLUSH 10ml SYRINGE IVF PRN ×2 (00:10→20:52)
[2017-03-11] MEDS ORDERED: NICOTINE 14 MG PATCH TD ONE (01:17)
[2017-03-11] MEDS ORDERED: MORPHINE SULFATE 2mg INJECTION IVP PRN (01:18)
[2017-03-11] MEDS ORDERED: SCOPOLAMINE 1.5mg (delivers 1mg/24hrs) PATCH TD SCH (01:30)
--- NOTE | 2017-03-11 01:43 | History & Physical Report ---
History of Present Illness Date: 03/11/17 Chief complaint: abd pain HPI: 56-year-old male presents to the emergency room after being discharged recently from [facility]. He was sent to a hospice house. Apparently at that' s location, when he awoke, decided that this is not where he wanted to be, and has not yet been prepared to stop therapy that he hopes would be curative. Attempts were made to gain readmission back to [facility], but with the re-admission process delayed by emergency room waiting time, he and family came to the hospital. Is currently rating his pain about an 8 or 9/10. His baseline or when he is feeling where it's tolerable has gotten down about a 5 or 610 with pain medicines. He was taking oral oxycodone at home, but in the hospital recently has required morphine 3 mg every 2 hours or so. He's not been able to eat well for the past 3-4 weeks per he and his daughter. He's been losing weight, and reports to me that he was "supposed to start chemo next week". He and his family have a lot of records that are with them but I have not had a chance to review those yet. I requested nursing staff to fax me some of those. He does state that he was on some antibiotics while at the hospital in [place]. He's had some brown sputum that is been coughing for the past week and 1/2 to 2 weeks. He's been on Coumadin for some reason, denies clotting but perhaps an arrhythmia. His INR was quite high in the range of 8 while in [place] per the family, it's now down to 5. He denies any bleeding. He says he hasn't had a bowel movement for the last 1-1/2-2 weeks. He says he can urinate. He vomited this evening. He denies any skin breakdown. There is a large nodule on his chest wall. He wishes to be a full code. He says he is trying to get to [place]," he wants to live, he wants to live as long as he can." attempted to place an NG tube, patient was unable to tolerate. Some bilious liquid returned. Review of Systems - Constitutional Constitutional: Present: anorexia, lethargy, malaise, weight loss - Cardiovascular Cardiovascular: Absent: chest pain - Respiratory Respiratory: Present: cough, excessive phlegm production - Gastrointestinal Gastrointestinal: Present: abdominal pain - Genitourinary Genitourinary: Absent: dysuria - Integumentary/Breasts Integumentary: Present: as per HPI - Neurological Neurological: Present: weakness [facility] Patient Stated Medical History Hypertension Yes Other Respiratory Yes: STAGE 4 SMALL CELL LUNG CANCER Clinic Medical History Metastatic lung cancer (metastasis from lung to other site) (Acute Medical) Surgical History: Left arm PICC line for the past year and /. He's had colon polyps removed. Lung biopsy Family History: not contributory based on age and condition - Social History Smoking status: Current every day smoker Packs-years: 50 Substance use type: does not use Alcohol intake frequency: does not drink Housing: house (reportedly had been living alone in a private home prior to his recent hospitalization.) Medications Home Medications Medication Instructions Recorded Confirmed Type Folic Acid [Folate] 1 mg PO DAILY 03/11/17 03/11/17 History Metoprolol Tartrate [Lopressor] 50 mg PO BID 03/11/17 03/11/17 History Ondansetron HCl 8 mg PO Q6-8HPRN 03/11/17 03/11/17 History Oxycodone *IR* [Roxicodone *Ir*] 1 tab PO Q4H PRN 03/11/17 03/11/17 History PredniSONE [Deltasone] 1 tab PO DAILY 03/11/17 03/11/17 History Prochlorperazine Maleate 10 mg PO Q6-8HPRN PRN 03/11/17 03/11/17 History [Compazine] Warfarin Sodium [Warfarin Sodium] 7.5 mg PO DAILY 03/11/17 03/11/17 History Allergies Allergy/AdvReac Type Severity Reaction Status Date / Time Penicillins Allergy Verified 03/10/17 23:49 Exam Vital Signs: Temperature 98.6 F 03/10/17 23:15 Pulse Rate 119 H 03/10/17 23:15 Respiratory Rate 16 03/10/17 23:15 Blood Pressure 126/80 03/10/17 23:15 Pulse Oximetry 94 03/10/17 23:15 Height/Weight/BMI: Height 1.8 m Weight 72.3 kg - Constitutional Present: mild distress, thin, cachectic Comments: Seems to have poor insight into his condition and prognosis - Routine HEENT Exam Head: Present: normocephalic Eye: Present: EOMI ENT: Present: mucous membranes dry - Routine Neck Exam Present: supple - Routine Chest/Breast/Axilla Exam Chest wall: Present: tenderness, mass - Routine Respiratory Exam Present: CTA bilaterally. Absent: accessory muscle use, respiratory distress Comments: diminished breath sounds bilaterally - Routine Cardiovascular Exam Present: RRR, S1, S2 - Routine Abdominal Exam Present: soft, tenderness, distended ( mildly distended, quiet but present bowel sounds) - Routine Extremities Exam Present: no edema - Routine Skin Exam Present: intact - Routine Neurological Exam Present: alert, CN II-XII intact - Routine Psychiatric Exam Absent: good insight Results - Labs CBC & Chem 7: 03/11/17 00:06 03/11/17 00:06 Assessment and Plan (1) Non-small cell carcinoma of left lung, stage 4 Current visit: Yes Status: Acute (2) Dehydration Current visit: Yes Status: Acute (3) Odynophagia Current visit: Yes Status: Acute (4) Metastatic lung cancer (metastasis from lung to other site) Problem details: sternum, lymph nodes, right pelvis, right adrenal gland, brain , mediastinum, right lung Current visit: Yes Status: Acute (5) Severe protein-calorie malnutrition Current visit: Yes Status: Acute Assessment and Plan: 1. stage IV non-small cell lung cancer, concern with metastases that may be causing partial small bowel obstruction 2. severe protein calorie malnutrition related to above, with odynophagia 3. bronchitis with possible sepsis 4. Anemia 5. History of supraventricular tachycardia for which I think he is on Coumadin , but unclear at this time 6. Severe pain related to above. My opinion is that hospice would be due. Disposition for him I need to get more information regarding treatment options. His functional status appears to be incompatible with further chemotherapy at this point. He is not ready to hear or consider this and my understanding is this has been perhaps presented to him by his oncologist as well. He has family are asking about a possible feeding tube, again not sure that this is a good idea but may or may not be a possibility. Not certainly the case with his INR 5. No recent imaging has been obtained to stage his intra-abdominal pathology that we would need to do this. I'm concerned as noted about possible small bowel obstruction. He also states he has not had a bowel movement and 1/2-2 weeks. I 've ordered a suppository and enemas to be available. Duragesic patch or other could be considered. For now we'll do IV fluids and IV pain medicine, and ask our day hospitalist to review the treatment options. We could consider to have his care return to [place], but clearly the family and the care team were not on the same page with what is happened here. Anton Vila 03/11/[address] Pope's note reviewed. Mr. Lux interviewed and examined. His daughter provided majority of history in addition to extensive review of records they brought. CC: Abdominal pain/can't swallow HPI: Mr. Lux is a 56-year-old male with widely metastatic stage IV lung cancer with mixed epithelial and adeno features pathologically. He is under the treatment of Dr. Salinas at [facility] and has previously been treated with radiation to the chest and cervical area November 2015, Alitma and [place] combination palliative chemotherapy until he had progression of disease in February 2016, Tecentriq through September 2016 when adrenal mass progressed, and 5 cycles of Taxotere starting 10/18/2016 through January 2017. Patient advises me that he was supposed to start a new chemotherapy tomorrow. Most recent CT of neck/chest/abdomen/pelvis at [facility] was on 2016 and demonstrated extensive mediastinal and pulmonary disease, increased right adrenal mass, increased right pelvic mass, and neck adenopathy with some nodes larger and some smaller and prior imaging. The patient was hospitalized at [facility] March 07 through March 11 with abdominal pain, nausea, vomiting, and inability maintain oral intake. He was treated with IV fluids and antibiotics in conjunction with IV morphine every 60-90 minutes and antiemetics. He was apparently discharged to hospice house yesterday but did not understand that therapy would be deescalated in that setting and on arrival there refused admission when he learned IV fluids and antibiotics would not be continued. Additionally the patient reports he does not want to have a DNR order and that he wants to continue all active efforts to prolong his life. Subsequently he and family return to the emergency room in [place] due to prolonged wake time and concerned that he would not be readmitted there they elected to transfer to the emergency room in [place] where he was felt to be dehydrated and was subsequently admitted. The patient continues to complain of severe abdominal pain which is generalized. He is unable to swallow and reports that he gags and throws up because things stick in his neck when he tries to swallow anything. He has pain in his mouth and throat and daughter provides much of his history because speaking is painful. Daughter describes 25 pound weight loss over the past 1-2 months and possibly a 16 pound weight loss since mid January. In addition to abdominal pain patient describes right low back pain and generalized sensitivity in his neck associated with adenopathy. He reports mild dyspnea and cough productive of brown sputum but is not aware of fever. He is unsure of what he wants to do regarding future oncology care other than plans to proceed with additional chemotherapy. PH/SH/FH: agree with that recorded above with additional history of paroxysmal atrial fibrillation-11/29, paroxysmal SVT, depression, multiple pulmonary emboli 08/29, colonic polyps (tubular and tubulovillous adenomas), peripheral neuropathy , malignant pericardial effusion requiring pericardial window in 11/29. FH: M-cancer, type unknown; brother-thought to have non-small cell lung cancer; sister-small cell lung cancer; grandmother-mate had breast cancer SH: 56-rffi-qccg tobacco use with continued occasional smoking, no alcohol or illicit drug use, DPOA is his daughter Felicia Cohen-number in EMR, CODE STATUS full ROS: 10 point review as per history of present illness and previously described by Dr. Pope for negative; difficult to elicit as patient is reluctant to provide history. EXAM: General-uncomfortable male, HEENT-PERRL, EOMI without nystagmus, conjunctiva clear, sclera anicteric, conjugate gaze, facial structures symmetric, oropharynx dry but no indication of thrush, extensive cervical adenopathy both anteriorly and posteriorly, right greater than left, supraclavicular nodes present on the right; nodes appear to be exquisitely tender to palpation. 4 cm nodule at sternal notch-does not appear to be fluctuant by limited palpation patient permits Lungs-nonlabored, fair airflow, breath sounds clear Cardiac-regular rhythm, S1 and S2, low-grade tachycardia Abd-bowel sounds present, patient refuses palpation of abdomen citing pain Ext-without edema, clubbing, cyanosis Skin-multiple tattoos upper extremities, no visible wounds on exposed skin surfaces Neuro-generalized weakness but patient moves all extremities spontaneously, lower extremities hypersensitive to touch distal to the ankles, cranial nerves III-12 grossly intact Psych-flat affect, fatigued, angry DATA: White count 14.5-100% neutrophils, hemoglobin 9.1 with MCV 78.3, teardrops present; electrolytes unremarkable, creatinine 0.8, liver enzymes within normal limits, albumin 2.6, UA with specific gravity > 1.03, +2 ketones A/P: Stage IV non-small cell lung cancer, extensive metastatic disease Intractable abdominal pain Dehydration Nausea/vomiting Malnutrition, severe protein calorie Weight loss Dysphagia/odynophagia Coagulopathy due to warfarin (last dose warfarin 03/06 and INR 8 on 03/07 by daughter's history) Microcytic anemia Hx p-afib/SVT Constipation Depression Hx PEs Obtaining records from [facility] regarding what was actively being treated during recent hospitalization. Daughter reports that he may have been treated for an abdominal abscess but he was also told that he did not have an abdominal abscess. Antibiotics were initiated empirically overnight for possible bronchitis and will be continued pending record review. Will additionally need to discuss patient's status with his usual managing oncologist and if appropriate consult oncology here. This has been discussed with the patient and his daughter. At present continue hydration, pain medications, and antiemetics in addition to IV antibiotics. NG tube placement was attempted overnight to initiate nutritional supplementation however could not be passed due to development of epistaxis and anatomy of the patient's neck. Feeding tube can be readdressed although I'm not sure if there will be a good option for this patient due to widely metastatic cancer. Dobbhoff can be attempted under fluoroscopy guidance following further correction of INR. Patient has declined fentanyl patch for basal pain control. Roxanol will be initiated to offer alternative to IV narcotic. Initiate Pepcid 20 mg IV every 12 hours with plans to convert to oral administration if able to do so. Suppositories/enemas prn for constipation. I spoke with the hospitalist who is on at [facility] today but unfortunately they were unfamiliar with the patient and can offer no additional insight into patient's recent treatment. DVT Prophylaxis: Coumadin GI Prophylaxis: Pepcid Resuscitation Status: Full Code Hospital Course Summary Disclaimer: The visit summary below is not to be considered part of the above Progress Note. Addendum entered and electronically signed by Morales Cartagena MD 03/11/17 05:27: obtain records from recent clinic visit February [address] Garber [facility] metastasis to the adrenal gland noted, left upper lobe non-small cell carcinoma. The patient has been off of hospice care, he declined Treated with Navelbine NCCN tmplate Fluids TIW with Toradol and Kytril when necessary in August 2015 he presented with multiple pulmonary emboli in addition to left upper lobe lung mass. Mediastinoscopy was done and he had positive lymph nodes at different levels with features of both squamous and adenocarcinoma His oncologist met the patient when he was admitted later in August 2015 to [facility] for wound infection the mediastinoscopy site had an abscess mass initially managed with IV antibiotics by the ID team The plan to start systemic palliative therapy and touch however the patient decided to transfer his care to [facility] [place] and biopsy of sternal lesion confirmed involvement with lung adenocarcinoma (EF GR, ALK, and ROS 1 were negative) Imaging of the brain confirmed brain metastases (he was told there were too small to consider radiation at that point Instead he underwent radiation to the chest and cervical area between November 11, 2015 and November 26, 2015 Chemotherapy was offered to him but not started after completing radiation After the above he moved back to [place] started Alimta and [place] combination palliative therapy initially until he had progression of disease on CT imaging on February 2016, and adrenal mass of 8.1 cm, progression of chest disease along with significant clinical the duration Alimta was discontinued and he was started on Tecentriq second line therapy CT scan May 05, mediastinal lesions were smaller except one was bigger from 2.3-3.1 on the abdomen, left adrenal was down from 8.12-7.2, right adrenal up from 1.8-3.2 so Tecentriq was continued Was seen in [facility] with brain MRI revealing a small lesion 2-3 mm suspicious for a met (this was known and appeared unchanged since MRI in [place] CT scan August 03 response left adrenal mass down from 7.2-2.6 cm CA-19-[address] scan September 2016 progression of disease with the adrenal mass up to 5.5 cm Test centric was stopped, cycle 1 of Taxotere on October 18, 2016, he completed 5 cycles of Taxotere Has completed 10 radiation treatments to the posterior cervical node is undergoing therapy to a sternum lesion CT February 2017 further progression of the disease with adrenal mass up to 7.4 cm He does have a history of pericardial effusion Have not been able to find records from recent stay at the [facility]
[2017-03-11] MEDS: MORPHINE SULFATE 4mg INJECTION IVP PRN ×9 (02:07→23:46)
[2017-03-11] MEDS: D5-1/2NS with KCL 20mEq 1,000 ML IV SCH ×3 (03:16→22:04)
[2017-03-11] MEDS: NS 1,000 ML IV SCH ×2 (05:49→10:53)
[2017-03-11] MEDS: LEVOFLOXACIN PB 750 MG/150 ML BAG IV SCH (06:32)
[2017-03-11] MEDS: BISACODYL 10 MG SUPPOSITORY RECTALLY SCH (08:05)
[2017-03-11] MEDS: PredniSONE 10 MG TABLET PO SCH (08:07)
[2017-03-11] MEDS ORDERED: WARFARIN - PHARMACY CONSULT MC ONE (09:25)
--- NOTE | 2017-03-11 10:53 | Pharmacy Consult ---
Pharmacy Consult-Warfarin - Laboratory Information INR on Sunday03/11/17 at admit is 5.06. - Consult Information COUMADIN CONSULT (Initial): 56 yo male patient on Levaquin 750 mg IV q24hrs. Pt' s home med dose of warfarin is stated as 7.5 mg daily. INR at admit is 5.06. Dx: Bronchitis with possible sepsis and metastatic stage 4 small-cell lung cancer, anemia, hx of supraventricular tachycardia. Baseline INR = 5.06 Will HOLD Warfarin until INR back into therapeutic range of 2-3. Thank you for the warfarin consult. Sonia Gutierrez, PharmD
[2017-03-11] MEDS ORDERED: Oxycodone *IR* 15 MG TABLET PO PRN (11:24)
[2017-03-11] MEDS: FAMOTIDINE PB 20 MG/50 ML BAG IV SCH (14:09)
[2017-03-11] MEDS: MORPHINE SULFATE 10mg/0.5ml ORAL LIQ SL PRN ×2 (16:08→21:58)
[2017-03-11] MEDS ORDERED: NS 1,000 ML IV SCH (21:00)
[2017-03-12] MEDS ORDERED: FUROSEMIDE 20 MG/2 ML INJECTION IVP ONE (00:15)
[2017-03-12] MEDS ORDERED: MORPHINE SULFATE 2mg INJECTION IVP ONE (00:16)
[2017-03-12] MEDS: MORPHINE SULFATE 4mg INJECTION IVP PRN ×11 (01:19→23:09)
[2017-03-12] MEDS: FAMOTIDINE PB 20 MG/50 ML BAG IV SCH ×2 (01:24→14:08)
[2017-03-12] MEDS: ONDANSETRON 4 MG/2 ML INJECTION IVP PRN (03:17)
[2017-03-12] MEDS: LEVOFLOXACIN PB 750 MG/150 ML BAG IV SCH (05:44)
[2017-03-12] MEDS ORDERED: NS IV ONE (06:57)
[2017-03-12] MEDS ORDERED: PHYTONADIONE IV ONE (06:57)
--- NOTE | 2017-03-12 08:18 | XRay Report ---
Indication: decreased 02 Procedure: XR chest 1V: Encounter: Initial Comparison: None Technique: A single portable AP chest radiograph was obtained. Findings: Lungs and airways: Low lung volumes. Pulmonary vascular indistinctness with increased interstitial and alveolar opacities. Pleura: No pleural effusion or pneumothorax. Heart and mediastinum: The cardiomediastinal silhouette and great vessels are within normal limits. Osseous structures and soft tissues: No acute osseous abnormality is seen. Impression: Prominent bilateral interstitial and alveolar opacities which could reflect congestive changes and pulmonary edema versus an infectious/inflammatory process in the appropriate clinical setting. .
--- NOTE | 2017-03-12 08:57 | Pharmacy Consult ---
Pharmacy Consult-Warfarin - Laboratory Information 03/12/17 03:56 INR 6.88 H* COUMADIN CONSULT: 56 yo male on Warfarin therapy. Home dose reported as 7.5mg daily. INR today = 6.88. Up from 5.06 yesterday. Phytonadione (Vit. K) 2mg IV given this morning. Drug-Drug interaction with Levaquin 750 mg IV q24hrs. Dx: Bronchitis with possible sepsis and metastatic stage 4 small-cell lung cancer, anemia, hx of supraventricular tachycardia. Will HOLD Warfarin today. Thank you
[2017-03-12] MEDS: PredniSONE 10 MG TABLET PO SCH (10:31)
[2017-03-12] MEDS: FUROSEMIDE 40 MG/4 ML INJECTION IVP SCH ×2 (10:31→22:07)
[2017-03-12] MEDS: SALINE FLUSH 10ml SYRINGE IVF PRN ×2 (10:32→19:03)
[2017-03-12] MEDS: HYDROCORTISONE SOD SUCC 100mg/2ml INJECTION IVP SCH ×2 (11:53→17:41)
[2017-03-12] MEDS: BISACODYL 10 MG SUPPOSITORY RECTALLY SCH (12:07)
[2017-03-12] MEDS: MetroNIDAZOLE PB 500 MG/100 ML BAG IV SCH ×2 (12:35→23:50)
[2017-03-12] MEDS: NS 1,000 ML IV SCH (16:57)
--- NOTE | 2017-03-12 18:03 | Progress Note ---
- Date 03/12/17 Subjective: Minimally responsive today. Developed increased respiratory distress abruptly last night-daughter reports she left the room about 10:30 and was paged back to the room 20 minutes later when oxygen saturation was in the upper 60s on high flow nasal cannula. Patient was transferred to the ICU at that time. Results of overnight testing discussed with Dr. Villanueva earlier this morning. Desaturates rapidly when BiPAP off despite high flow nasal cannula. Daughter (Sandra) reports patient opened his eyes briefly and said 1 or 2 words to her daughter when she was present. Sandra has requested morphine administration at frequent intervals per nursing. Objective Vital signs: Temperature 97.1 F 03/12/17 16:01 Pulse Rate 90 03/12/17 15:00 Respiratory Rate 17 03/12/17 15:00 Blood Pressure 106/68 03/12/17 15:00 Pulse Oximetry 100 -BiPAP FiO2 80% 03/12/17 15:00 I/O 2813/1355 yesterday; 548/1665 so far today Minimally responsive, moving arms spontaneously, flutters eyes occasionally but not to command Respirations appear moderately labored on BiPAP, saturation 94% when seen this morning with FiO2 90% Regular rhythm, low-grade tachycardia, S1 and S2 Abdomen soft, moderately firm left upper quadrant-grimaces slightly when left upper and left lower quadrants palpated, no bowel sounds present Rhythm: Sinus Tachycardia Height/Weight/BMI: Height 1.8 m Weight 70.9 kg Body Mass Index 21.8 Results - Labs CBC & Chem 7: 03/12/17 03:56 03/12/17 03:56 Labs: S4 B1 L2 M3 Magnesium 1.7, phosphorus 3.2, albumin 2.5, pre-albumin 4.2 Lactic acid 1.2-1.0 Microbiology Results: Microbiology 03/11/17 03:33 Sputum, Expectorated Sputum Culture - Preliminary No Growth After 1 Day 03/11/17 01:34 Peripheral/Iv Start Blood Culture - Preliminary No Growth After 1 Day 03/11/17 01:35 Peripheral/Iv Start Blood Culture - Preliminary No Growth After 1 Day - ABG Interpretation Attestation: I reviewed and interpreted this ABG. (mild respiratory alkalosis with marked hypoxia) ABG results: 03/11/17 03/12/17 23:44 06:34 ABG pH 7.430 ABG pCO2 36 ABG pO2 35 L* ABG HCO3 24 ABG Total CO2 25.0 ABG O2 Saturation 69.0 L ABG Base Excess -0.1 VBG pH 7.480 H VBG pCO2 28 L VBG pO2 90 H VBG HCO3 21 L VBG Total CO2 21.8 VBG O2 Saturation 98.0 VBG Base Excess -1.5 - Imaging and Cardiology Chest x-ray Status: image reviewed by me (pulmonary edema) Assessment and Plan (1) Non-small cell carcinoma of left lung, stage 4 Current visit: Yes Status: Acute (2) Dehydration Current visit: Yes Status: Acute (3) Odynophagia Current visit: Yes Status: Acute (4) Metastatic lung cancer (metastasis from lung to other site) Problem details: sternum, lymph nodes, right pelvis, right adrenal gland, brain , mediastinum, right lung Current visit: Yes Status: Acute Assessment and Plan: Impression: Stage IV non-small cell lung cancer, extensive metastatic disease-rapidly expanding Acute hypoxic respiratory failure/pulmonary edema Intractable abdominal pain Small bowel perforation with peritonitis-identified 03/07/17 Dehydration Nausea/vomiting Malnutrition, severe protein calorie Weight loss Dysphagia/odynophagia Coagulopathy due to warfarin (last dose warfarin 03/06 and INR 8 on 03/07 by daughter's history) Microcytic anemia Hx p-afib/SVT Constipation Depression Hx PEs Plan: Marked decompensation overnight requiring transfer to the ICU and ventilatory assistance with BiPAP to maintain oxygenation. Developments discussed with the patient's oncologist this morning-he strongly recommended DO NOT RESUSCITATE and indicated that although additional chemotherapy has been offered to the patient the patient was advised that there was little chance that this would offer any meaningful response. He was fully supportive of hospice but indicated he's been unable to bring patient/family to the point of recognizing the advanced state of his disease. Records obtained from [facility] indicating 40% increase in tumor bulk between CT 02/23/17 and 03/07/17; additionally CT on 03/07 revealed tumor invasion of the small bowel with perforation and peritonitis. While hospitalized in [place] the patient was being treated with Cipro or Levaquin and metronidazole for peritonitis. He was seen by surgical consult who advised family and patient that tumor bulk precluded surgical intervention and recommended hospice care. Patient's daughter Libby was contacted by phone-developments overnight and results of recent CT were discussed with her. Additionally I advised her of Dr. Salinas's recommendation for DO NOT RESUSCITATE. She plans to travel from [place] to [place] in 2 days and hopes to delay patient's until that time. She is aware the patient is dying and a little can be done to alter that outcome. She is contemplating CODE STATUS but was not ready to change status at time of our conversation earlier today. At present patient does not have an acute abdomen and may have walled off the bowel perforation previously identified. Antibiotics were expanded with addition of metronidazole based on [place] records. Diuresis continued for respiratory distress. Receive vitamin K earlier today for coagulopathy. Family aware prognosis is poor. I have advised that additional family members should be notified of severity of illness. Critically ill, time in-time out: [id number], 3728-4063 DVT Prophylaxis: Coumadin Resuscitation Status: Full Code - Time spent with patient Time with patient PN: other (56 min; critical care) Hospital Course Summary Disclaimer: The visit summary below is not to be considered part of the above Progress Note. Hospital Course: 03/11/17-admission 1. stage IV non-small cell lung cancer, concern with metastases that may be causing partial small bowel obstruction 2. severe protein calorie malnutrition related to above, with odynophagia 3. bronchitis with possible sepsis 4. Anemia 5. History of supraventricular tachycardia for which I think he is on Coumadin , but unclear at this time 6. Severe pain related to above. Patient's functional status appears to be incompatible with further chemotherapy at this point. Based on data currently available hospice seems appropriate. He is not ready to hear or consider this and my understanding is this has been perhaps presented to him by his oncologist as well. He has family are asking about a possible feeding tube, again not sure that this is a good idea but may or may not be a possibility. Not certainly the case with his INR 5. No recent imaging has been obtained to stage his intra-abdominal pathology that we would need to do this. I'm concerned as noted about possible small bowel obstruction. He also states he has not had a bowel movement and 1/2-2 weeks. I 've ordered a suppository and enemas to be available. For now we'll do IV fluids and IV pain medicine, and ask our day hospitalist to review the treatment options. We could consider to have his care return to [place], but clearly the family and the care team were not on the same page with what is happened here. Addendum- Attempting to obtain records from [facility] regarding what was actively being treated during recent hospitalization. Daughter reports that he may have been treated for an abdominal abscess but he was also told that he did not have an abdominal abscess. Antibiotics were initiated empirically overnight for possible bronchitis and will be continued pending record review. Will additionally need to discuss patient's status with his usual managing oncologist and if appropriate consult oncology here. This has been discussed with the patient and his daughter. At present continue hydration, pain medications, and antiemetics in addition to IV antibiotics. NG tube placement was attempted overnight to initiate nutritional supplementation however could not be passed due to development of epistaxis and anatomy of the patient's neck. Feeding tube can be readdressed although I'm not sure if there will be a good option for this patient due to widely metastatic cancer. Dobbhoff can be attempted under fluoroscopy guidance following further correction of INR. Patient has declined fentanyl patch for basal pain control. Roxanol will be initiated to offer alternative to IV narcotic. Initiate Pepcid 20 mg IV every 12 hours with plans to convert to oral administration if able to do so. Suppositories/enemas prn for constipation. I spoke with the hospitalist who is on at [facility] today but unfortunately they were unfamiliar with the patient and can offer no additional insight into patient's recent treatment. 03/12/17 Marked decompensation overnight requiring transfer to the ICU and ventilatory assistance with BiPAP to maintain oxygenation. Developments discussed with the patient's oncologist this morning-he strongly recommended DO NOT RESUSCITATE and indicated that although additional chemotherapy has been offered to the patient the patient was advised that there was little chance that this would offer any meaningful response. He was fully supportive of hospice but indicated he's been unable to bring patient/family to the point of recognizing the advanced state of his disease. Records obtained from [facility] indicating 40% increase in tumor bulk between CT 02/23/17 and 03/07/17; additionally CT on 03/07 revealed tumor invasion of the small bowel with perforation and peritonitis. While hospitalized in [place] the patient was being treated with Cipro or Levaquin and metronidazole for peritonitis. He was seen by surgical consult who advised family and patient that tumor bulk precluded surgical intervention and recommended hospice care. Patient's daughter Libby was contacted by phone-developments overnight and results of recent CT were discussed with her. Additionally I advised her of Dr. Salinas's recommendation for DO NOT RESUSCITATE. She plans to travel from [place] to [place] in 2 days and hopes to delay patient's until that time. She is aware the patient is dying and a little can be done to alter that outcome. She is contemplating CODE STATUS but was not ready to change status at time of our conversation earlier today. At present patient does not have an acute abdomen and may have walled off the bowel perforation previously identified. Antibiotics were expanded with addition of metronidazole based on [facility] records. Diuresis continued for respiratory distress. Vitamin K given for coagulopathy earlier today. Family aware prognosis is poor.
[2017-03-13] MEDS: MORPHINE SULFATE 4mg INJECTION IVP PRN ×7 (00:11→22:53)
[2017-03-13] MEDS: HYDROCORTISONE SOD SUCC 100mg/2ml INJECTION IVP SCH ×3 (01:53→16:40)
[2017-03-13] MEDS: FAMOTIDINE PB 20 MG/50 ML BAG IV SCH ×2 (01:54→14:20)
[2017-03-13] MEDS: NS 1,000 ML IV SCH ×2 (02:47→19:51)
[2017-03-13] MEDS: LEVOFLOXACIN PB 750 MG/150 ML BAG IV SCH (05:42)
--- NOTE | 2017-03-13 08:33 | XRay Report ---
Indication: acute hypoxic respiratory failure PROCEDURE: XR chest 1V: Encounter: Initial Comparison: March 12, 2017 Findings: Bilateral airspace disease has slightly improved with a significant amount remaining. Small pleural effusions. No gross pneumothorax. Heart size and mediastinal contours are grossly stable. Impression: Slight improvement in severe pulmonary edema. .
[2017-03-13] MEDS: SALINE FLUSH 10ml SYRINGE IVF PRN ×3 (08:58→20:16)
[2017-03-13] MEDS: FUROSEMIDE 40 MG/4 ML INJECTION IVP SCH (09:24)
[2017-03-13] MEDS: BISACODYL 10 MG SUPPOSITORY RECTALLY SCH (09:25)
[2017-03-13 11:09] VITALS: BMI 20.7
[2017-03-13] MEDS: ALBUTEROL 2.5mg/3ml (0.083%) NEB AEROSOL PRN ×2 (11:13→14:53)
[2017-03-13] MEDS: MetroNIDAZOLE PB 500 MG/100 ML BAG IV SCH (11:16)
[2017-03-13] MEDS: MORPHINE SULFATE 10mg/0.5ml ORAL LIQ SL PRN ×3 (11:40→16:40)
--- NOTE | 2017-03-13 13:53 | Pharmacy Consult ---
Pharmacy Consult-Warfarin - Laboratory Information 03/12/17 03/13/17 03:56 03:49 INR 6.88 H* 1.22 H - Consult Information COUMADIN CONSULT (Recurring): PT WAS GIVEN 2 MG IV YESTERDAY (03/12/17) AND HIS INR DROPPED FROM 6.98 TO 1.22. WILL GIVE 1 MG WARFARIN TODAY AND MONITOR PT'S RESPONSE. Thank you. Sonia Gutierrez, PrernaD
[2017-03-13] MEDS ORDERED: WARFARIN 1 MG TABLET PO ONE (14:00)
[2017-03-13] MEDS: FUROSEMIDE 20 MG/2 ML INJECTION IVP SCH (20:16)
--- NOTE | 2017-03-13 20:44 | Progress Note ---
- Date 03/13/17 Subjective: Mr. Lux remains BiPAP dependent. He's been sleeping soundly with daughter sleeping of bedside when I visited the room several times today. When nursing is taken him off of BiPAP for brief periods for oral care of the reasons he desaturates despite high flow nasal cannula O2 with saturation dropping to 70-85 %. Nursing describes respirations with very labored when he is off BiPAP. Patient has complained of abdominal pain at times-especially early this morning but has relatively comfortable since although requires IV morphine or Roxanol frequently. DPOA is due to arrive overnight. Urine output remains acceptable with diuresis. Objective Vital signs: Temperature 97.0 F 03/13/17 15:34 Pulse Rate 76 03/13/17 18:06 Respiratory Rate 19 03/13/17 18:06 Blood Pressure 121/62 03/13/17 18:06 Pulse Oximetry 95 03/13/17 18:06 I/O 1396/3695 Weight down 3 kg from yesterday Sleeping soundly both times patient was seen-did not awaken to exam on either occasion On BiPAP respirations nonlabored, anterior breath sounds coarse bilaterally Regular rhythm, S1-S2 Abdomen slightly firm, diminished bowel sounds Moves extremities spontaneously and to palpation Adenopathy in neck and sternal mass unchanged Rhythm: Sinus Tachycardia Height/Weight/BMI: Height 1.8 m Weight 67.6 kg Body Mass Index 20.7 Results - Labs CBC & Chem 7: 03/13/17 03:49 03/13/17 03:49 Labs: S 94 L3 M3 INR 1.22 ProBNP 1200 Microbiology Results: Microbiology 03/11/17 03:33 Sputum, Expectorated Sputum Culture - Final No Growth After 2 Days 03/11/17 01:34 Peripheral/Iv Start Blood Culture - Preliminary No Growth After 2 Days 03/11/17 01:35 Peripheral/Iv Start Blood Culture - Preliminary No Growth After 2 Days - ABG Interpretation ABG results: 03/11/17 03/12/17 23:44 06:34 ABG pH 7.430 ABG pCO2 36 ABG pO2 35 L* ABG HCO3 24 ABG Total CO2 25.0 ABG O2 Saturation 69.0 L ABG Base Excess -0.1 VBG pH 7.480 H VBG pCO2 28 L VBG pO2 90 H VBG HCO3 21 L VBG Total CO2 21.8 VBG O2 Saturation 98.0 VBG Base Excess -1.5 - Imaging and Cardiology Chest x-ray Status: image reviewed by me (pulmonary edema-slight improvement from prior film ) Assessment and Plan (1) Non-small cell carcinoma of left lung, stage 4 Current visit: Yes Status: Acute (2) Dehydration Problem details: POA Current visit: Yes Status: Acute (3) Metastatic lung cancer (metastasis from lung to other site) Problem details: sternum, lymph nodes, right pelvis, right adrenal gland, brain , mediastinum, right lung Current visit: Yes Status: Acute (4) Acute respiratory failure with hypoxia Current visit: Yes Status: Acute Assessment and Plan: Impression: Stage IV non-small cell lung cancer, extensive metastatic disease-rapidly expanding Acute hypoxic respiratory failure/pulmonary edema Intractable abdominal pain Small bowel perforation with peritonitis-identified 03/07/17 Hypokalemia-03/13/17 Dehydration Nausea/vomiting Malnutrition, severe protein calorie Weight loss Dysphagia/odynophagia Coagulopathy due to warfarin (last dose warfarin 03/06 and INR 8 on 03/07 by daughter's history) Microcytic anemia Hx p-afib/SVT Constipation Depression Hx PEs Plan: Remains BiPAP dependent, currently with FiO2 50%. Continue diuresis and supportive care. DPOA due to arrive overnight-she is aware of severity of patient's illness and terminal nature of both acute and chronic diseases. INR stabilized after vitamin K yesterday, due to history of multiple PEs 1 mg warfarin given today. May require Lovenox pending family decision making. Suspect bowel perforation has walled off, continue antibiotics. Potassium replaced IV Critically ill, time in-time out: 2751-3985, [id number]. DVT Prophylaxis: SCD's, Coumadin GI Prophylaxis: Pepcid Resuscitation Status: Full Code Hospital Course Summary Disclaimer: The visit summary below is not to be considered part of the above Progress Note. Hospital Course: 03/11/17-admission 1. stage IV non-small cell lung cancer, concern with metastases that may be causing partial small bowel obstruction 2. severe protein calorie malnutrition related to above, with odynophagia 3. bronchitis with possible sepsis 4. Anemia 5. History of supraventricular tachycardia for which I think he is on Coumadin , but unclear at this time 6. Severe pain related to above. Patient's functional status appears to be incompatible with further chemotherapy at this point. Based on data currently available hospice seems appropriate. He is not ready to hear or consider this and my understanding is this has been perhaps presented to him by his oncologist as well. He has family are asking about a possible feeding tube, again not sure that this is a good idea but may or may not be a possibility. Not certainly the case with his INR 5. No recent imaging has been obtained to stage his intra-abdominal pathology that we would need to do this. I'm concerned as noted about possible small bowel obstruction. He also states he has not had a bowel movement and 1/2-2 weeks. I 've ordered a suppository and enemas to be available. For now we'll do IV fluids and IV pain medicine, and ask our day hospitalist to review the treatment options. We could consider to have his care return to [place], but clearly the family and the care team were not on the same page with what is happened here. Addendum- Attempting to obtain records from [facility] regarding what was actively being treated during recent hospitalization. Daughter reports that he may have been treated for an abdominal abscess but he was also told that he did not have an abdominal abscess. Antibiotics were initiated empirically overnight for possible bronchitis and will be continued pending record review. Will additionally need to discuss patient's status with his usual managing oncologist and if appropriate consult oncology here. This has been discussed with the patient and his daughter. At present continue hydration, pain medications, and antiemetics in addition to IV antibiotics. NG tube placement was attempted overnight to initiate nutritional supplementation however could not be passed due to development of epistaxis and anatomy of the patient's neck. Feeding tube can be readdressed although I'm not sure if there will be a good option for this patient due to widely metastatic cancer. Dobbhoff can be attempted under fluoroscopy guidance following further correction of INR. Patient has declined fentanyl patch for basal pain control. Roxanol will be initiated to offer alternative to IV narcotic. Initiate Pepcid 20 mg IV every 12 hours with plans to convert to oral administration if able to do so. Suppositories/enemas prn for constipation. I spoke with the hospitalist who is on at [facility] today but unfortunately they were unfamiliar with the patient and can offer no additional insight into patient's recent treatment. 03/12/17 Marked decompensation overnight requiring transfer to the ICU and ventilatory assistance with BiPAP to maintain oxygenation. Developments discussed with the patient's oncologist this morning-he strongly recommended DO NOT RESUSCITATE and indicated that although additional chemotherapy has been offered to the patient the patient was advised that there was little chance that this would offer any meaningful response. He was fully supportive of hospice but indicated he's been unable to bring patient/family to the point of recognizing the advanced state of his disease. Records obtained from [facility] indicating 40% increase in tumor bulk between CT 02/23/17 and 03/07/17; additionally CT on 03/07 revealed tumor invasion of the small bowel with perforation and peritonitis. While hospitalized in [place] the patient was being treated with Cipro or Levaquin and metronidazole for peritonitis. He was seen by surgical consult who advised family and patient that tumor bulk precluded surgical intervention and recommended hospice care. Patient's daughter Libby was contacted by phone-developments overnight and results of recent CT were discussed with her. Additionally I advised her of Dr. Salinas's recommendation for DO NOT RESUSCITATE. She plans to travel from [place] to [place] in 2 days and hopes to delay patient's until that time. She is aware the patient is dying and a little can be done to alter that outcome. She is contemplating CODE STATUS but was not ready to change status at time of our conversation earlier today. At present patient does not have an acute abdomen and may have walled off the bowel perforation previously identified. Antibiotics were expanded with addition of metronidazole based on [place] records. Diuresis continued for respiratory distress. Vitamin K given for coagulopathy earlier today. Family aware prognosis is poor. 03/13/17 Remains BiPAP dependent, currently with FiO2 50%. Continue diuresis and supportive care. DPOA due to arrive overnight-she is aware of severity of patient's illness and terminal nature of both acute and chronic diseases. INR stabilized after vitamin K yesterday, due to history of multiple PEs 1 mg warfarin given today. May require Lovenox pending family decision making. Suspect bowel perforation has walled off, continue antibiotics. Potassium replaced IV
[2017-03-14] MEDS: MetroNIDAZOLE PB 500 MG/100 ML BAG IV SCH ×2 (00:01→11:16)
[2017-03-14] MEDS: HYDROCORTISONE SOD SUCC 100mg/2ml INJECTION IVP SCH ×4 (00:22→21:46)
[2017-03-14] MEDS: MORPHINE SULFATE 4mg INJECTION IVP PRN ×11 (00:34→23:14)
[2017-03-14] MEDS: FAMOTIDINE PB 20 MG/50 ML BAG IV SCH ×2 (01:15→16:04)
[2017-03-14] MEDS: SALINE FLUSH 10ml SYRINGE IVF PRN ×6 (02:53→19:19)
[2017-03-14] MEDS ORDERED: FALL RISK - PHARMACY CONSULT XX ONE (03:20)
[2017-03-14] MEDS: LEVOFLOXACIN PB 750 MG/150 ML BAG IV SCH (04:47)
[2017-03-14] MEDS: ALBUTEROL 2.5mg/3ml (0.083%) NEB AEROSOL PRN (07:19)
[2017-03-14] MEDS: FUROSEMIDE 20 MG/2 ML INJECTION IVP SCH ×2 (08:20→21:43)
[2017-03-14] MEDS: BISACODYL 10 MG SUPPOSITORY RECTALLY SCH (08:23)
--- NOTE | 2017-03-14 08:32 | Pharmacy Consult ---
Pharmacy Consult-Warfarin - Laboratory Information 03/12/17 03/13/17 03/14/17 03:56 03:49 04:33 INR 6.88 H* 1.22 H 1.28 H - Consult Information COUMADIN CONSULT (Recurring): PT RECIEVED 1 MG WARFARIN YESTERDAY (03/13) AND INR WENT FROM 1.22 T0 1.28. VITAMIN K 2 MG DOSE WAS GIVEN ON SUNDAY (03/12). WILL GIVE A 2 MG DOSE OF WARFARIN TODAY. PHARMACY WILL CONTINUE TO MONITOR AND ADJUST DOSE TO REACH A THERAPEUTIC INR. THANK YOU. MIKEL WALDEN, PHARMD
[2017-03-14] MEDS ORDERED: WARFARIN 2 MG TABLET PO SCH (12:00)
[2017-03-14] MEDS: NS 1,000 ML IV SCH ×2 (19:00→21:38)
--- NOTE | 2017-03-14 21:08 | Progress Note ---
- Date 03/14/17 Subjective: Mr. Lux was seen/examined during the morning and again in the afternoon when his DPOA daughter Felicia arrived. Mental status is deteriorating but he has tolerated being off BiPAP and on high flow nasal cannula at 15 L much of the day. He mumbled something about that pain patch asking about how much but couldn 't clarify if he was asking regarding cost or dose. He's previously refused a fentanyl patch. Both his daughter and nursing report that he rests better after taking Roxanol but the patient is reluctant to use it and asks for IV morphine when lucid enough to do so. Ongoing abdominal pain, took several bites of applesauce yesterday but no other oral intake. Objective Vital signs: Temperature 97.9 F 03/14/17 19:30 Pulse Rate 77 03/14/17 20:00 Respiratory Rate 24 03/14/17 20:00 Blood Pressure 121/70 03/14/17 20:00 Pulse Oximetry 97 03/14/17 20:00 I/O 1213/2954 Lethargic male, rarely attempts to answer questions, occasional mumbled words Conjugate gaze, cervical adenopathy as in the past Respirations nonlabored, diminished airflow, breath sounds are slightly coarse anteriorly Regular cardiac rhythm Abdomen is soft, absent bowel sounds, mild generalized tenderness No lower extremity edema Spontaneously moves upper extremities, minor movement lower extremities Rhythm: Normal Sinus Rhythm Height/Weight/BMI: Height 1.8 m Weight 63.7 kg Body Mass Index 20.7 Results - Labs CBC & Chem 7: 03/14/17 04:33 03/14/17 04:33 Labs: S97 L2 M1 INR 1.28 Microbiology Results: Microbiology 03/11/17 01:34 Peripheral/Iv Start Blood Culture - Preliminary No Growth After 3 Days 03/11/17 01:35 Peripheral/Iv Start Blood Culture - Preliminary No Growth After 3 Days 03/11/17 03:33 Sputum, Expectorated Sputum Culture - Final No Growth After 2 Days Assessment and Plan (1) Non-small cell carcinoma of left lung, stage 4 Current visit: Yes Status: Acute (2) Dehydration Problem details: POA Current visit: Yes Status: Acute (3) Metastatic lung cancer (metastasis from lung to other site) Problem details: sternum, lymph nodes, right pelvis, right adrenal gland, brain , mediastinum, right lung Current visit: Yes Status: Acute (4) Acute respiratory failure with hypoxia Current visit: Yes Status: Acute Assessment and Plan: Impression: Stage IV non-small cell lung cancer, extensive metastatic disease-rapidly expanding Acute hypoxic respiratory failure/pulmonary edema Intractable abdominal pain Small bowel perforation with peritonitis-identified 03/07/17 Hypokalemia-03/13/17 Dehydration Nausea/vomiting Malnutrition, severe protein calorie Weight loss Dysphagia/odynophagia Coagulopathy due to warfarin (last dose warfarin 03/06 and INR 8 on 03/07 by daughter's history) Microcytic anemia Hx p-afib/SVT Constipation Depression Hx PEs Plan: More encephalopathic than prior days-check ABG in a.m., may represent progression of disease. High flow oxygen at 15 L, recommend. Stool rest with BiPAP. Continue diuresis and supportive care. Lengthy discussion with both daughters (Felicia/SHAHID and Sandra) both are aware of severity of patient's illness and terminal nature of his disease but report he has consistently refused DO NOT RESUSCITATE and they do not feel they should alter his decision despite worsening disease/encephalopathy. INR stabilized after vitamin K 2 days ago, warfarin resumed yesterday, 2 mg given today. Suspect bowel perforation has walled off, continue antibiotics-Levaquin/ metronidazole. Advised family Dobbhoff cannot be placed while on high flow oxygen and PEG tube/ surgically placed G-tube not an option with recent bowel perforation. Additionally advised family that Dobbhoff not an option outside the hospital or at a nursing facility. Discharge option/needs being reviewed with daughters. Potassium replaced IV Critically ill, time in-time out: [id number], [id number], [id number]. DVT Prophylaxis: SCD's, Coumadin GI Prophylaxis: Pepcid Resuscitation Status: Full Code Hospital Course Summary Disclaimer: The visit summary below is not to be considered part of the above Progress Note. Hospital Course: 03/11/17-admission 1. stage IV non-small cell lung cancer, concern with metastases that may be causing partial small bowel obstruction 2. severe protein calorie malnutrition related to above, with odynophagia 3. bronchitis with possible sepsis 4. Anemia 5. History of supraventricular tachycardia for which I think he is on Coumadin , but unclear at this time 6. Severe pain related to above. Patient's functional status appears to be incompatible with further chemotherapy at this point. Based on data currently available hospice seems appropriate. He is not ready to hear or consider this and my understanding is this has been perhaps presented to him by his oncologist as well. He has family are asking about a possible feeding tube, again not sure that this is a good idea but may or may not be a possibility. Not certainly the case with his INR 5. No recent imaging has been obtained to stage his intra-abdominal pathology that we would need to do this. I'm concerned as noted about possible small bowel obstruction. He also states he has not had a bowel movement and 1/2-2 weeks. I 've ordered a suppository and enemas to be available. For now we'll do IV fluids and IV pain medicine, and ask our day hospitalist to review the treatment options. We could consider to have his care return to [place], but clearly the family and the care team were not on the same page with what is happened here. Addendum- Attempting to obtain records from [facility] regarding what was actively being treated during recent hospitalization. Daughter reports that he may have been treated for an abdominal abscess but he was also told that he did not have an abdominal abscess. Antibiotics were initiated empirically overnight for possible bronchitis and will be continued pending record review. Will additionally need to discuss patient's status with his usual managing oncologist and if appropriate consult oncology here. This has been discussed with the patient and his daughter. At present continue hydration, pain medications, and antiemetics in addition to IV antibiotics. NG tube placement was attempted overnight to initiate nutritional supplementation however could not be passed due to development of epistaxis and anatomy of the patient's neck. Feeding tube can be readdressed although I'm not sure if there will be a good option for this patient due to widely metastatic cancer. Dobbhoff can be attempted under fluoroscopy guidance following further correction of INR. Patient has declined fentanyl patch for basal pain control. Roxanol will be initiated to offer alternative to IV narcotic. Initiate Pepcid 20 mg IV every 12 hours with plans to convert to oral administration if able to do so. Suppositories/enemas prn for constipation. I spoke with the hospitalist who is on at [facility] today but unfortunately they were unfamiliar with the patient and can offer no additional insight into patient's recent treatment. 03/12/17 Marked decompensation overnight requiring transfer to the ICU and ventilatory assistance with BiPAP to maintain oxygenation. Developments discussed with the patient's oncologist this morning-he strongly recommended DO NOT RESUSCITATE and indicated that although additional chemotherapy has been offered to the patient the patient was advised that there was little chance that this would offer any meaningful response. He was fully supportive of hospice but indicated he's been unable to bring patient/family to the point of recognizing the advanced state of his disease. Records obtained from [facility] indicating 40% increase in tumor bulk between CT 02/23/17 and 03/07/17; additionally CT on 03/07 revealed tumor invasion of the small bowel with perforation and peritonitis. While hospitalized in [place] the patient was being treated with Cipro or Levaquin and metronidazole for peritonitis. He was seen by surgical consult who advised family and patient that tumor bulk precluded surgical intervention and recommended hospice care. Patient's daughter Libby was contacted by phone-developments overnight and results of recent CT were discussed with her. Additionally I advised her of Dr. Salinas's recommendation for DO NOT RESUSCITATE. She plans to travel from [place] to [place] in 2 days and hopes to delay patient's until that time. She is aware the patient is dying and a little can be done to alter that outcome. She is contemplating CODE STATUS but was not ready to change status at time of our conversation earlier today. At present patient does not have an acute abdomen and may have walled off the bowel perforation previously identified. Antibiotics were expanded with addition of metronidazole based on [place] records. Diuresis continued for respiratory distress. Vitamin K given for coagulopathy earlier today. Family aware prognosis is poor. 03/13/17 Remains BiPAP dependent, currently with FiO2 50%. Continue diuresis and supportive care. DPOA due to arrive overnight-she is aware of severity of patient's illness and terminal nature of both acute and chronic diseases. INR stabilized after vitamin K yesterday, due to history of multiple PEs 1 mg warfarin given today. May require Lovenox pending family decision making. Suspect bowel perforation has walled off, continue antibiotics. 03/14/17 More encephalopathic than prior days-check ABG in a.m., may represent progression of disease. High flow oxygen at 15 L, recommend. Stool rest with BiPAP. Continue diuresis and supportive care. Lengthy discussion with both daughters (Libby and Sandra) both are aware of severity of patient's illness and terminal nature of his disease but report he has consistently refused DO NOT RESUSCITATE and they do not feel they should alter his decision despite worsening disease/encephalopathy. INR stabilized after vitamin K 2 days ago, warfarin resumed yesterday, 2 mg given today.
[2017-03-14] MEDS: MORPHINE SULFATE 10mg/0.5ml ORAL LIQ SL PRN ×2 (21:41→23:51)
[2017-03-14] MEDS: POTASSIUM CHLORIDE PREMIX 10 MEQ/100 ML BAG IV SCH ×2 (21:55→23:05)
[2017-03-15] MEDS: MetroNIDAZOLE PB 500 MG/100 ML BAG IV SCH ×2 (00:03→10:31)
[2017-03-15] MEDS: POTASSIUM CHLORIDE PREMIX 10 MEQ/100 ML BAG IV SCH ×6 (00:17→16:44)
[2017-03-15] MEDS: MORPHINE SULFATE 4mg INJECTION IVP PRN ×5 (00:53→22:05)
[2017-03-15] MEDS: FAMOTIDINE PB 20 MG/50 ML BAG IV SCH (01:19)
[2017-03-15] MEDS: MORPHINE SULFATE 10mg/0.5ml ORAL LIQ SL PRN ×5 (02:00→20:55)
[2017-03-15] MEDS: LEVOFLOXACIN PB 750 MG/150 ML BAG IV SCH (04:46)
[2017-03-15] MEDS: ONDANSETRON 4 MG/2 ML INJECTION IVP PRN ×2 (07:38→19:45)
[2017-03-15] MEDS: FUROSEMIDE 20 MG/2 ML INJECTION IVP SCH ×2 (08:32→21:13)
--- NOTE | 2017-03-15 08:40 | Pharmacy Consult ---
Pharmacy Consult-Warfarin - Laboratory Information 03/12/17 03/13/17 03/14/17 03:56 03:49 04:33 INR 6.88 H* 1.22 H 1.28 H 03/15/17 04:34 INR 1.41 H - Consult Information 56 yo male with history of a. fib and chronic anti-coagulation with warfarin. Home dose= warfarin 7.5 mg daily. goal INR range = 2.0- 3.0. INR was supra- therapeutic on admission. 2 mg Vitamin K given 03/12 due to high INR. date INR dose 03/11 5.06 no dose 03/12 6.98 vitamin K 2 mg IV 03/13 1.22 1 mg 03/14 1.2 2 mg 03/15 1.41 plan: 4 mg Will give Warfarin 4 mg po today. Potential drug-drug interaction exists between Levofloxacin and warfarin. May increase INR and risk of bleeding. Pharmacy will monitor and adjust as needed. Thank you for the warfarin consult. Mendy Melendez RPh
--- NOTE | 2017-03-15 09:09 | XRay Report ---
Indication: hypoxic respiratory failure PROCEDURE: XR chest 1V: Encounter: Initial Comparison: March 13, 2017 Findings: Left PICC line remains in place. Improving aeration of the lungs with decreasing edema. Small residual effusions. No pneumothorax. Heart size and mediastinal contours are stable. Impression: Improving edema with a mild to moderate amount remaining. .
[2017-03-15] MEDS: D5-1/2NS with KCL 20mEq 1,000 ML IV SCH (09:53)
[2017-03-15] MEDS: HYDROCORTISONE SOD SUCC 100mg/2ml INJECTION IVP SCH (10:29)
[2017-03-15] MEDS ORDERED: WARFARIN 4 MG TABLET PO SCH (12:00)
[2017-03-15] MEDS: BISACODYL 10 MG SUPPOSITORY RECTALLY SCH (12:41)
--- NOTE | 2017-03-15 14:26 | Progress Note ---
- Date 03/15/17 Subjective: Mr. Harden was seen with his daughter at bedside. She reports that he had increased nausea this morning but despite that wants to try having a strawberry banana shake from [employer] in that her sister is getting one now. The patient appears more alert than he did yesterday and answered 1 or 2 questions for the most part did not answer questions and focused only on his daughter in the [place]ays. His daughter reports that his breathing has seemed easier this morning and that he use BiPAP for short intervals overnight; simple facemask was used at times and tolerated well. Muscle spasms he was experiencing in the lower extremities yesterday have resolved. Last bowel movement unknown-patient does not want to try suppository or enema. Minimal oral intake. Continues to describe pain all over per nursing report although did not answer questions regarding pain when I asked. Objective Vital signs: Temperature 95.9 F L 03/15/17 12:15 Pulse Rate 97 03/15/17 12:15 Respiratory Rate 16 03/15/17 12:15 Blood Pressure 111/78 03/15/17 12:15 Pulse Oximetry 98 03/15/17 12:15 I/O 1731/2479 NAD, drowsy Pupils equal/round, conjunctiva clear, thrush present on the tongue Respirations nonlabored, good airflow, breath sounds clear anteriorly Upper sternal nodule unchanged from prior visits; cervical adenopathy not assessed today Regular rhythm, S1-S2 Abdomen firm, more tender diffusely in the past couple of days, diminished bowel sounds No peripheral edema Rhythm: Normal Sinus Rhythm Height/Weight/BMI: Height 1.8 m Weight 64 kg Body Mass Index 20.7 Results - Labs CBC & Chem 7: 03/14/17 04:33 03/15/17 04:34 Labs: Magnesium 2.3, phosphorus 3.2, albumin 2.5 INR 1.41 Microbiology Results: Microbiology 03/11/17 01:34 Peripheral/Iv Start Blood Culture - Preliminary No Growth After 4 Days 03/11/17 01:35 Peripheral/Iv Start Blood Culture - Preliminary No Growth After 4 Days 03/11/17 03:33 Sputum, Expectorated Sputum Culture - Final No Growth After 2 Days - ABG Interpretation Attestation: I reviewed and interpreted this ABG. (minor respiratory alkalosis, severe hypoxemia) ABG results: 03/15/17 07:47 ABG pH 7.500 H ABG pCO2 45 ABG pO2 55 L ABG HCO3 35 H ABG Total CO2 36.5 H ABG O2 Saturation 91.0 L ABG Base Excess 10.6 H Obtained on 15 L per high Flow cannula Assessment and Plan (1) Non-small cell carcinoma of left lung, stage 4 Current visit: Yes Status: Acute (2) Dehydration Problem details: POA Current visit: Yes Status: Acute (3) Metastatic lung cancer (metastasis from lung to other site) Problem details: sternum, lymph nodes, right pelvis, right adrenal gland, brain , mediastinum, right lung Current visit: Yes Status: Acute (4) Acute respiratory failure with hypoxia Current visit: Yes Status: Acute Assessment and Plan: Impression: Stage IV non-small cell lung cancer, extensive metastatic disease-rapidly expanding Acute hypoxic respiratory failure/pulmonary edema Intractable abdominal pain Small bowel perforation with peritonitis-identified 03/07/17 Hypokalemia-03/13/17 Hypernatremia-03/15/17 Thrush-03/15/17 Dehydration Nausea/vomiting Malnutrition, severe protein calorie Weight loss Dysphagia/odynophagia Coagulopathy due to warfarin (last dose warfarin 03/06 and INR 8 on 03/07 by daughter's history) Microcytic anemia Hx p-afib/SVT Constipation Depression Hx PEs Plan: More encephalopathic than prior days-ABG with CO2 of 45-slightly elevated from 4 days earlier but not enough to account for lethargy demonstrated. Likely narcotic induced. High flow oxygen at 15 L, recommend.periods of rest with BiPAP. Continue diuresis and supportive care. Family committed to full code. Coagulopathy reversed with vitamin K on 03/12, warfarin resumed 03/13, 4 mg given today. Suspect bowel perforation has walled off, continue antibiotics-Levaquin/ metronidazole. Anticipate repeating [address] abdomen/pelvis [address] identifying perforation at [place] on 03/07 Advised family Dobbhoff cannot be placed while on high flow oxygen and PEG tube/ surgically placed G-tube not an option with recent bowel perforation. Additionally advised family that Dobbhoff not an option outside the hospital or at a nursing facility. Continue potassium replacement, hypotonic fluids being administered due to hypernatremia. Decrease rate of diuresis given clinical improvement. Progressive anemia, reassess in a.m.-will likely need transfusion in the next day or 2. Stable to transfer out of ICU, convert back to oral prednisone, oral Pepcid. Nystatin initiated for thrush. DVT Prophylaxis: SCD's GI Prophylaxis: Protonix Resuscitation Status: Full Code Hospital Course Summary Disclaimer: The visit summary below is not to be considered part of the above Progress Note. Hospital Course: 03/11/17-admission 1. stage IV non-small cell lung cancer, concern with metastases that may be causing partial small bowel obstruction 2. severe protein calorie malnutrition related to above, with odynophagia 3. bronchitis with possible sepsis 4. Anemia 5. History of supraventricular tachycardia for which I think he is on Coumadin , but unclear at this time 6. Severe pain related to above. Patient's functional status appears to be incompatible with further chemotherapy at this point. Based on data currently available hospice seems appropriate. He is not ready to hear or consider this and my understanding is this has been perhaps presented to him by his oncologist as well. He has family are asking about a possible feeding tube, again not sure that this is a good idea but may or may not be a possibility. Not certainly the case with his INR 5. No recent imaging has been obtained to stage his intra-abdominal pathology that we would need to do this. I'm concerned as noted about possible small bowel obstruction. He also states he has not had a bowel movement and 1/2-2 weeks. I 've ordered a suppository and enemas to be available. For now we'll do IV fluids and IV pain medicine, and ask our day hospitalist to review the treatment options. We could consider to have his care return to [place], but clearly the family and the care team were not on the same page with what is happened here. Addendum- Attempting to obtain records from [facility] regarding what was actively being treated during recent hospitalization. Daughter reports that he may have been treated for an abdominal abscess but he was also told that he did not have an abdominal abscess. Antibiotics were initiated empirically overnight for possible bronchitis and will be continued pending record review. Will additionally need to discuss patient's status with his usual managing oncologist and if appropriate consult oncology here. This has been discussed with the patient and his daughter. At present continue hydration, pain medications, and antiemetics in addition to IV antibiotics. NG tube placement was attempted overnight to initiate nutritional supplementation however could not be passed due to development of epistaxis and anatomy of the patient's neck. Feeding tube can be readdressed although I'm not sure if there will be a good option for this patient due to widely metastatic cancer. Dobbhoff can be attempted under fluoroscopy guidance following further correction of INR. Patient has declined fentanyl patch for basal pain control. Roxanol will be initiated to offer alternative to IV narcotic. Initiate Pepcid 20 mg IV every 12 hours with plans to convert to oral administration if able to do so. Suppositories/enemas prn for constipation. I spoke with the hospitalist who is on at [facility] today but unfortunately they were unfamiliar with the patient and can offer no additional insight into patient's recent treatment. 03/12/17 Marked decompensation overnight requiring transfer to the ICU and ventilatory assistance with BiPAP to maintain oxygenation. Developments discussed with the patient's oncologist this morning-he strongly recommended DO NOT RESUSCITATE and indicated that although additional chemotherapy has been offered to the patient the patient was advised that there was little chance that this would offer any meaningful response. He was fully supportive of hospice but indicated he's been unable to bring patient/family to the point of recognizing the advanced state of his disease. Records obtained from [facility] indicating 40% increase in tumor bulk between CT 02/23/17 and 03/07/17; additionally CT on 03/07 revealed tumor invasion of the small bowel with perforation and peritonitis. While hospitalized in [place] the patient was being treated with Cipro or Levaquin and metronidazole for peritonitis. He was seen by surgical consult who advised family and patient that tumor bulk precluded surgical intervention and recommended hospice care. Patient's daughter Libby was contacted by phone-developments overnight and results of recent CT were discussed with her. Additionally I advised her of Dr. Salinas's recommendation for DO NOT RESUSCITATE. She plans to travel from [place] to [place] in 2 days and hopes to delay patient's until that time. She is aware the patient is dying and a little can be done to alter that outcome. She is contemplating CODE STATUS but was not ready to change status at time of our conversation earlier today. At present patient does not have an acute abdomen and may have walled off the bowel perforation previously identified. Antibiotics were expanded with addition of metronidazole based on [place] records. Diuresis continued for respiratory distress. Vitamin K given for coagulopathy earlier today. Family aware prognosis is poor. 03/13/17 Remains BiPAP dependent, currently with FiO2 50%. Continue diuresis and supportive care. DPOA due to arrive overnight-she is aware of severity of patient's illness and terminal nature of both acute and chronic diseases. INR stabilized after vitamin K yesterday, due to history of multiple PEs 1 mg warfarin given today. May require Lovenox pending family decision making. Suspect bowel perforation has walled off, continue antibiotics. 03/14/17 More encephalopathic than prior days-check ABG in a.m., may represent progression of disease. High flow oxygen at 15 L, recommend. Stool rest with BiPAP. Continue diuresis and supportive care. Lengthy discussion with both daughters (Felicia/DPSANDY and Sandra) both are aware of severity of patient's illness and terminal nature of his disease but report he has consistently refused DO NOT RESUSCITATE and they do not feel they should alter his decision despite worsening disease/encephalopathy. INR stabilized after vitamin K 2 days ago, warfarin resumed yesterday, 2 mg given today. 03/15/17 More encephalopathic than prior days-ABG with CO2 of 45-slightly elevated from 4 days earlier but not enough to account for lethargy demonstrated. Likely narcotic induced. High flow oxygen at 15 L, recommend.periods of rest with BiPAP. Continue diuresis and supportive care. Family committed to full code. Coagulopathy reversed with vitamin K on 03/12, warfarin resumed 03/13, 4 mg given today. Suspect bowel perforation has walled off, continue antibiotics-Levaquin/ metronidazole. Anticipate repeating CT abdomen/pelvis [address] identifying perforation at [place] on 03/07 Advised family Dobbhoff cannot be placed while on high flow oxygen and PEG tube/ surgically placed G-tube not an option with recent bowel perforation. Additionally advised family that Dobbhoff not an option outside the hospital or at a nursing facility. Continue potassium replacement, hypotonic fluids being administered due to hypernatremia. Decrease rate of diuresis given clinical improvement. Progressive anemia, reassess in a.m.-will likely need transfusion in the next day or 2. Nystatin suspension for thrush. Transfer out of ICU.
[2017-03-15] MEDS: PredniSONE 10 MG TABLET PO SCH (15:31)
[2017-03-15] MEDS: NYSTATIN 500,000 units/5 ml ORAL LIQUID PO SCH ×2 (15:32→19:39)
[2017-03-15] MEDS: FAMOTIDINE 20 MG TABLET PO SCH (20:57)
[2017-03-15] MEDS: SALINE FLUSH 10ml SYRINGE IVF PRN (21:13)
[2017-03-16] MEDS: D5-1/2NS with KCL 20mEq 1,000 ML IV SCH ×3 (00:05→20:14)
[2017-03-16] MEDS: MetroNIDAZOLE PB 500 MG/100 ML BAG IV SCH ×2 (00:09→11:29)
[2017-03-16] MEDS: NYSTATIN 500,000 units/5 ml ORAL LIQUID PO SCH ×5 (00:09→20:44)
[2017-03-16] MEDS: SALINE FLUSH 10ml SYRINGE IVF PRN ×3 (00:09→21:52)
[2017-03-16] MEDS: MORPHINE SULFATE 10mg/0.5ml ORAL LIQ SL PRN (00:18)
[2017-03-16] MEDS ORDERED: ALTEPLASE (Cathflo*) 2mg INJECTION IV ONE (00:48)
[2017-03-16] MEDS: LEVOFLOXACIN PB 750 MG/150 ML BAG IV SCH (06:39)
[2017-03-16] MEDS: NS 1,000 ML IV SCH (07:38)
[2017-03-16] MEDS: MORPHINE SULFATE 4mg INJECTION IVP PRN ×7 (07:42→21:52)
[2017-03-16] MEDS: FUROSEMIDE 20 MG/2 ML INJECTION IVP SCH ×2 (08:58→20:43)
[2017-03-16] MEDS: FAMOTIDINE 20 MG TABLET PO SCH ×2 (08:59→20:43)
[2017-03-16] MEDS: PredniSONE 10 MG TABLET PO SCH ×2 (08:59→09:00)
[2017-03-16] MEDS: ALBUTEROL 2.5mg/3ml (0.083%) NEB AEROSOL PRN (09:35)
[2017-03-16] MEDS: BISACODYL 10 MG SUPPOSITORY RECTALLY SCH (10:10)
--- NOTE | 2017-03-16 10:10 | Pharmacy Consult ---
Pharmacy Consult-Warfarin - Laboratory Information 03/12/17 03/13/17 03/14/17 03:56 03:49 04:33 INR 6.88 H* 1.22 H 1.28 H 03/15/17 03/16/17 04:34 04:24 INR 1.41 H 1.79 H - Consult Information COUMADIN CONSULT (Recurring): 03/13 WARFARIN DOSE 1 MG INR = 1.22 03/14 WARFARIN DOSE 2 MG INR = 1.2 03/15 WARFARIN DOSE 4 MG INR = 1.41 03/16 ...................... INR = 1.79 WARFARIN DOSE FOR 03/16 WILL BE 3 MG INR IS NOW INCREASING DAILY ON WARFARIN. PATIENT HAD RECEIVED 2 MG VIT K ON 03/12 FOR INR = 6.98. PATIENT ON ANTIBIOTICS LEVOFLOXCIN 750 MG IV DAILY AND METRONIDAZOLE 500 MG IV Q12HRS WHICH CAN ALSO CAUSE THE INR TO INCREASE. Thank you. Sonia Gutierrez, PrernaD
[2017-03-16] MEDS: POTASSIUM CHLORIDE PREMIX 10 MEQ/100 ML BAG IV SCH ×4 (10:25→14:04)
[2017-03-16] MEDS ORDERED: WARFARIN 3 MG TABLET PO SCH (12:00)
[2017-03-16] MEDS ORDERED: SALINE FLUSH 10ml SYRINGE ONE (12:42)
[2017-03-16] MEDS ORDERED: IOHEXOL 300mg/ml 75ml INJECTION ONE (12:42)
[2017-03-16] MEDS ORDERED: NS 100 ML ONE (12:42)
--- NOTE | 2017-03-16 14:20 | CT Scan Report ---
Indication: recent bowel perforation, widely metastatic lung ca PROCEDURE: CT abdomen pelvis w con: Encounter: Initial Comparison: Outside CT abdomen and pelvis report dated March 07, 2017 Technique: Axial CT images were performed through the abdomen and pelvis after the administration of intravenous contrast. Coronal and sagittal two-dimensional reformats. Automated Exposure Control and Iterative Reconstruction dose reducing techniques were utilized. Contrast: Omnipaque 300 73 mL Findings: Infrahilar right lung mass measuring 4.1 cm in diameter on axial image #8. There is a fluid attenuation nodule along the major fissure on image #12 which could represent a herniated portion of the liver containing a cyst or a cystic metastasis along the diaphragm measuring 1.2 cm in diameter. This is reportedly stable in size. There are moderate right and small left pleural effusions with compressive atelectasis. There are multiple hepatic cysts present without enhancing liver mass or bile duct dilatation. There is vicarious excretion of contrast material by the gallbladder. The spleen, pancreas and left adrenal gland are within normal limits. Large low-attenuation right adrenal mass measuring 7.7 x 6 cm on axial image #29. This is stable from the comparison report measurements. The kidneys are unremarkable. No free intraperitoneal air identified. There is a large peripherally enhancing centrally necrotic appearing mass in the central pelvis. This contains foci of gas and measures 9.3 x 8.8 x 9.1 cm in size. This is increased from 8 x 8 cm on the comparison report. Epstein catheter present within a decompressed bladder. Small amount of free pelvic fluid. There is oral contrast present within the colon. No evidence of extravasated oral contrast. Transverse colon is quite decompressed. No evidence of a small bowel obstruction. There is no oral contrast seen within the small bowel loops, limiting evaluation. Bone windows show no obvious lytic or blastic bony lesions. Impression: 1. Metastatic disease with a right infrahilar lung mass and presumably malignant pleural effusion. 2. Grossly stable size of the large right adrenal metastasis. 3. 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 This may be responsible for the gas within this lesion. The previously reported peritonitis has improved and the free intraperitoneal air has resolved in the meantime suggesting that this process has walled off or contained itself within the pelvis. There is no evidence of an acute bowel obstruction currently. .
--- NOTE | 2017-03-16 21:17 | Progress Note ---
- Date 03/16/17 Subjective: Mr. Lux was awake when seen late in the afternoon following CT of the abdomen /pelvis. His daughters report that he ate about 7 bites of a shake yesterday but today has had virtually nothing. He had increased dyspnea this morning requiring resumption of BiPAP for about an hour and he used again briefly this afternoon but is otherwise remained on high flow nasal cannula. He continues to complain of generalized pain. Late this afternoon the patient advised his daughters that "he's done" and that he just wants morphine. He told them he is tired of waking up in pain and he doesn't want to experience it any further. Objective Vital signs: Temperature 97.3 F 03/16/17 15:32 Pulse Rate 86 03/16/17 15:32 Respiratory Rate 18 03/16/17 15:32 Blood Pressure 108/55 03/16/17 15:32 Pulse Oximetry 100 03/16/17 15:32 I/O 2221/2305 Patient appears uncomfortable and is focused on his daughters, does not answer questions I ask Respirations are nonlabored at time of my evaluation, decreased inspiratory effort, anterior breath sounds relatively clear at present Regular rhythm, S1-S2, low-grade tachycardia Abdomen firm Trace upper extremity edema persists, lower extremities not examined at this time Height/Weight/BMI: Height 1.8 m Weight 65.7 kg Body Mass Index 20.7 Results - Labs CBC & Chem 7: 03/16/17 04:24 03/16/17 04:24 Labs: INR 1.79 Microbiology Results: Microbiology 03/11/17 01:34 Peripheral/Iv Start Blood Culture - Final No Growth After 5 Days 03/11/17 01:35 Peripheral/Iv Start Blood Culture - Final No Growth After 5 Days 03/11/17 03:33 Sputum, Expectorated Sputum Culture - Final No Growth After 2 Days - ABG Interpretation ABG results: - Imaging and Cardiology CT scan - abdomen Status: image reviewed by me (large pelvic mass with gas pockets-increased in size from scan 10 days ago by radiology report, no free air or evidence of ongoing peritonitis; right infrahilar lung mass, pleural effusions, large right adrenal metastasis. ) Assessment and Plan (1) Non-small cell carcinoma of left lung, stage 4 Current visit: Yes Status: Acute (2) Dehydration Problem details: POA Current visit: Yes Status: Acute (3) Metastatic lung cancer (metastasis from lung to other site) Problem details: sternum, lymph nodes, right pelvis, right adrenal gland, brain , mediastinum, right lung Current visit: Yes Status: Acute (4) Acute respiratory failure with hypoxia Current visit: Yes Status: Acute Assessment and Plan: Impression: Stage IV non-small cell lung cancer, extensive metastatic disease-rapidly expanding Acute hypoxic respiratory failure/pulmonary edema Intractable abdominal pain Small bowel perforation with peritonitis-identified 03/07/17 Hypokalemia-03/13/17 Hypernatremia-03/15/17 Thrush-03/15/17 Dehydration Nausea/vomiting Malnutrition, severe protein calorie Weight loss Dysphagia/odynophagia Coagulopathy due to warfarin (last dose warfarin 03/06 and INR 8 on 03/07 by daughter's history) Microcytic anemia Hx p-afib/SVT Constipation Depression Hx PEs Plan: Patient continues to speak only with his daughters but they are interpreting his statements this afternoon as intent to discontinue active therapy. At present they're tearful and struggling with his decision but both agree he should be converted to DO NOT RESUSCITATE. At present they are unable to discontinue fluids and accordingly I've continued Lasix. Comfort care order written; I advised them that social work will see them tomorrow to discuss options of hospice consult, correction transfer, or return to hospice house in [place]. Prior small bowel perforation appears to vault off and acute inflammatory changes have subsided-antibiotics discontinued. Given decision to focus on comfort warfarin will be discontinued. Provided there is no change in focus of care overnight I've recommended the daughters that fluids and other [id number] medications be discontinued tomorrow and I strongly recommended that they consult a hospice service to assist in patient management. Hospital Course Summary Disclaimer: The visit summary below is not to be considered part of the above Progress Note. Hospital Course: 03/11/17-admission 1. stage IV non-small cell lung cancer, concern with metastases that may be causing partial small bowel obstruction 2. severe protein calorie malnutrition related to above, with odynophagia 3. bronchitis with possible sepsis 4. Anemia 5. History of supraventricular tachycardia for which I think he is on Coumadin , but unclear at this time 6. Severe pain related to above. Patient's functional status appears to be incompatible with further chemotherapy at this point. Based on data currently available hospice seems appropriate. He is not ready to hear or consider this and my understanding is this has been perhaps presented to him by his oncologist as well. He has family are asking about a possible feeding tube, again not sure that this is a good idea but may or may not be a possibility. Not certainly the case with his INR 5. No recent imaging has been obtained to stage his intra-abdominal pathology that we would need to do this. I'm concerned as noted about possible small bowel obstruction. He also states he has not had a bowel movement and 1/2-2 weeks. I 've ordered a suppository and enemas to be available. For now we'll do IV fluids and IV pain medicine, and ask our day hospitalist to review the treatment options. We could consider to have his care return to [place], but clearly the family and the care team were not on the same page with what is happened here. Addendum- Attempting to obtain records from [facility] regarding what was actively being treated during recent hospitalization. Daughter reports that he may have been treated for an abdominal abscess but he was also told that he did not have an abdominal abscess. Antibiotics were initiated empirically overnight for possible bronchitis and will be continued pending record review. Will additionally need to discuss patient's status with his usual managing oncologist and if appropriate consult oncology here. This has been discussed with the patient and his daughter. At present continue hydration, pain medications, and antiemetics in addition to IV antibiotics. NG tube placement was attempted overnight to initiate nutritional supplementation however could not be passed due to development of epistaxis and anatomy of the patient's neck. Feeding tube can be readdressed although I'm not sure if there will be a good option for this patient due to widely metastatic cancer. Dobbhoff can be attempted under fluoroscopy guidance following further correction of INR. Patient has declined fentanyl patch for basal pain control. Roxanol will be initiated to offer alternative to IV narcotic. Initiate Pepcid 20 mg IV every 12 hours with plans to convert to oral administration if able to do so. Suppositories/enemas prn for constipation. I spoke with the hospitalist who is on at [facility] today but unfortunately they were unfamiliar with the patient and can offer no additional insight into patient's recent treatment. 03/12/17 Marked decompensation overnight requiring transfer to the ICU and ventilatory assistance with BiPAP to maintain oxygenation. Developments discussed with the patient's oncologist this morning-he strongly recommended DO NOT RESUSCITATE and indicated that although additional chemotherapy has been offered to the patient the patient was advised that there was little chance that this would offer any meaningful response. He was fully supportive of hospice but indicated he's been unable to bring patient/family to the point of recognizing the advanced state of his disease. Records obtained from [facility] indicating 40% increase in tumor bulk between CT 02/23/17 and 03/07/17; additionally CT on 03/07 revealed tumor invasion of the small bowel with perforation and peritonitis. While hospitalized in [place] the patient was being treated with Cipro or Levaquin and metronidazole for peritonitis. He was seen by surgical consult who advised family and patient that tumor bulk precluded surgical intervention and recommended hospice care. Patient's daughter Libby was contacted by phone-developments overnight and results of recent CT were discussed with her. Additionally I advised her of Dr. Salinas's recommendation for DO NOT RESUSCITATE. She plans to travel from [place] to [place] in 2 days and hopes to delay patient's until that time. She is aware the patient is dying and a little can be done to alter that outcome. She is contemplating CODE STATUS but was not ready to change status at time of our conversation earlier today. At present patient does not have an acute abdomen and may have walled off the bowel perforation previously identified. Antibiotics were expanded with addition of metronidazole based on [place] records. Diuresis continued for respiratory distress. Vitamin K given for coagulopathy earlier today. Family aware prognosis is poor. 03/13/17 Remains BiPAP dependent, currently with FiO2 50%. Continue diuresis and supportive care. DPOA due to arrive overnight-she is aware of severity of patient's illness and terminal nature of both acute and chronic diseases. INR stabilized after vitamin K yesterday, due to history of multiple PEs 1 mg warfarin given today. May require Lovenox pending family decision making. Suspect bowel perforation has walled off, continue antibiotics. 03/14/17 More encephalopathic than prior days-check ABG in a.m., may represent progression of disease. High flow oxygen at 15 L, recommend. Stool rest with BiPAP. Continue diuresis and supportive care. Lengthy discussion with both daughters (Libby and Sandra) both are aware of severity of patient's illness and terminal nature of his disease but report he has consistently refused DO NOT RESUSCITATE and they do not feel they should alter his decision despite worsening disease/encephalopathy. INR stabilized after vitamin K 2 days ago, warfarin resumed yesterday, 2 mg given today. 03/15/17 More encephalopathic than prior days-ABG with CO2 of 45-slightly elevated from 4 days earlier but not enough to account for lethargy demonstrated. Likely narcotic induced. High flow oxygen at 15 L, recommend.periods of rest with BiPAP. Continue diuresis and supportive care. Family committed to full code. Coagulopathy reversed with vitamin K on 03/12, warfarin resumed 03/13, 4 mg given today. Suspect bowel perforation has walled off, continue antibiotics-Levaquin/ metronidazole. Anticipate repeating CT abdomen/pelvis [address] identifying perforation at [place] on 03/07 Advised family Dobbhoff cannot be placed while on high flow oxygen and PEG tube/ surgically placed G-tube not an option with recent bowel perforation. Additionally advised family that Dobbhoff not an option outside the hospital or at a nursing facility. Continue potassium replacement, hypotonic fluids being administered due to hypernatremia. Decrease rate of diuresis given clinical improvement. Progressive anemia, reassess in a.m.-will likely need transfusion in the next day or 2. Nystatin suspension for thrush. Transfer out of ICU. 03/16/17 21:23 Patient continues to speak only with his daughters but they are interpreting his statements this afternoon as intent to discontinue active therapy. At present they're tearful and struggling with his decision but both agree he should be converted to DO NOT RESUSCITATE. At present they are unable to discontinue fluids and accordingly I've continued Lasix. Comfort care order written; I advised them that social work will see them tomorrow to discuss options of hospice consult, correction transfer, or return to hospice house in [place]. Prior small bowel perforation appears to vault off and acute inflammatory changes have subsided-antibiotics discontinued. Given decision to focus on comfort warfarin will be discontinued. Provided there is no change in focus of care overnight I've recommended the daughters that fluids and other [id number] medications be discontinued tomorrow and I strongly recommended that they consult a hospice service to assist in patient management.
[2017-03-17] MEDS: MORPHINE SULFATE 4mg INJECTION IVP PRN ×5 (05:16→23:56)
[2017-03-17] MEDS: BISACODYL 10 MG SUPPOSITORY RECTALLY SCH (09:04)
[2017-03-17] MEDS: FUROSEMIDE 20 MG/2 ML INJECTION IVP SCH ×2 (09:09→20:44)
[2017-03-17] MEDS: NYSTATIN 500,000 units/5 ml ORAL LIQUID PO SCH ×4 (09:09→22:44)
[2017-03-17] MEDS: PredniSONE 10 MG TABLET PO SCH (09:18)
--- NOTE | 2017-03-17 10:48 | Progress Note ---
- Date 03/17/17 Subjective: Nonverbal for me this morning. Daughters sleeping at bedside early AM. Does not like to take po roxanol; prefers the IV morphine per RN. Comfort care orders overnight and patient more comfortable, able to titrate down Fi02. DPOA met with case management and now wanting to continue aggressive care including full resp support and IVF. Objective Vital signs: Temperature 97.9 F 03/17/17 08:38 Pulse Rate 93 03/17/17 08:38 Respiratory Rate 22 03/17/17 08:38 Blood Pressure 107/65 03/17/17 08:38 Pulse Oximetry 91 03/17/17 10:33 Height/Weight/BMI: Height 1.8 m Weight 64.5 kg Body Mass Index 20.7 - Constitutional Present: cachectic, obtunded - Routine HEENT Exam Eye: Present: PERRL. Absent: conjunctival icterus ENT: Present: mucous membranes moist, oropharynx clear - Routine Respiratory Exam Present: decreased breath sounds, rhonchi. Absent: wheezes, crackles - Routine Cardiovascular Exam Present: RRR. Absent: murmur - Routine Abdominal Exam Present: soft, non distended, non tender - Routine Extremities Exam Present: cyanosis, pulses intact. Absent: clubbing, edema - Routine Skin Exam Present: dry, warm. Absent: rash - Routine Psychiatric Exam Present: unable to assess Results - Labs CBC & Chem 7: 03/16/17 04:24 03/16/17 04:24 Microbiology Results: Microbiology 03/11/17 01:34 Peripheral/Iv Start Blood Culture - Final No Growth After 5 Days 03/11/17 01:35 Peripheral/Iv Start Blood Culture - Final No Growth After 5 Days 03/11/17 03:33 Sputum, Expectorated Sputum Culture - Final No Growth After 2 Days Assessment and Plan Assessment and Plan: Impression: Stage IV non-small cell lung cancer, extensive metastatic disease-rapidly expanding Acute hypoxic respiratory failure/pulmonary edema Intractable abdominal pain Small bowel perforation with peritonitis-identified 03/07/17 Hypokalemia-03/13/17 Hypernatremia-03/15/17 Thrush-03/15/17 Dehydration Nausea/vomiting Malnutrition, severe protein calorie Weight loss Dysphagia/odynophagia Coagulopathy due to warfarin (last dose warfarin 03/06 and INR 8 on 03/07 by daughter's history) Microcytic anemia Hx p-afib/SVT Constipation Depression History of PE; warfarin now held due to poor nutrition, labile INR, terminal status Plan: Patient continues to speak only with his daughters; yesterday they interpreted his wishes as stopping aggressive treatment and moving to a comfort care approach; this was done overnight. This morning they no longer feel that way and want to continue full care. He remains DO NOT RESUSCITATE. Will resume fluids per their request but decrease to 50 cc/hour and continue lasix today to achieve some balance. Social work did visit with them this morning as planned; currently the plan is to continue full care through the weekend and look toward facility [facility] in [place] on Sunday. Will continue to discuss goals of care. Prior small bowel perforation appears to vault off and acute inflammatory changes have subsided-antibiotics discontinued 03/16 and will monitor off of them. Continue to hold warfarin today but will check CBC, INR, renal panel in AM for surveillance and then discuss further. Will hold on planned hospice consult acutely and continue to discuss plans of care. Discussed with case management and bedside RN. DVT Prophylaxis: SCD's GI Prophylaxis: Pepcid Resuscitation Status: Do Not Resuscitate Hospital Course Summary Disclaimer: The visit summary below is not to be considered part of the above Progress Note. Hospital Course: 03/11/17-admission 1. stage IV non-small cell lung cancer, concern with metastases that may be causing partial small bowel obstruction 2. severe protein calorie malnutrition related to above, with odynophagia 3. bronchitis with possible sepsis 4. Anemia 5. History of supraventricular tachycardia for which I think he is on Coumadin , but unclear at this time 6. Severe pain related to above. Patient's functional status appears to be incompatible with further chemotherapy at this point. Based on data currently available hospice seems appropriate. He is not ready to hear or consider this and my understanding is this has been perhaps presented to him by his oncologist as well. He has family are asking about a possible feeding tube, again not sure that this is a good idea but may or may not be a possibility. Not certainly the case with his INR 5. No recent imaging has been obtained to stage his intra-abdominal pathology that we would need to do this. I'm concerned as noted about possible small bowel obstruction. He also states he has not had a bowel movement and 1/2-2 weeks. I 've ordered a suppository and enemas to be available. For now we'll do IV fluids and IV pain medicine, and ask our day hospitalist to review the treatment options. We could consider to have his care return to [place], but clearly the family and the care team were not on the same page with what is happened here. Addendum- Attempting to obtain records from [facility] regarding what was actively being treated during recent hospitalization. Daughter reports that he may have been treated for an abdominal abscess but he was also told that he did not have an abdominal abscess. Antibiotics were initiated empirically overnight for possible bronchitis and will be continued pending record review. Will additionally need to discuss patient's status with his usual managing oncologist and if appropriate consult oncology here. This has been discussed with the patient and his daughter. At present continue hydration, pain medications, and antiemetics in addition to IV antibiotics. NG tube placement was attempted overnight to initiate nutritional supplementation however could not be passed due to development of epistaxis and anatomy of the patient's neck. Feeding tube can be readdressed although I'm not sure if there will be a good option for this patient due to widely metastatic cancer. Dobbhoff can be attempted under fluoroscopy guidance following further correction of INR. Patient has declined fentanyl patch for basal pain control. Roxanol will be initiated to offer alternative to IV narcotic. Initiate Pepcid 20 mg IV every 12 hours with plans to convert to oral administration if able to do so. Suppositories/enemas prn for constipation. I spoke with the hospitalist who is on at [facility] today but unfortunately they were unfamiliar with the patient and can offer no additional insight into patient's recent treatment. 03/12/17 Marked decompensation overnight requiring transfer to the ICU and ventilatory assistance with BiPAP to maintain oxygenation. Developments discussed with the patient's oncologist this morning-he strongly recommended DO NOT RESUSCITATE and indicated that although additional chemotherapy has been offered to the patient the patient was advised that there was little chance that this would offer any meaningful response. He was fully supportive of hospice but indicated he's been unable to bring patient/family to the point of recognizing the advanced state of his disease. Records obtained from [facility] indicating 40% increase in tumor bulk between CT 02/23/17 and 03/07/17; additionally CT on 03/07 revealed tumor invasion of the small bowel with perforation and peritonitis. While hospitalized in [place] the patient was being treated with Cipro or Levaquin and metronidazole for peritonitis. He was seen by surgical consult who advised family and patient that tumor bulk precluded surgical intervention and recommended hospice care. Patient's daughter Libby was contacted by phone-developments overnight and results of recent CT were discussed with her. Additionally I advised her of Dr. Salinas's recommendation for DO NOT RESUSCITATE. She plans to travel from [place] to [place] in 2 days and hopes to delay patient's until that time. She is aware the patient is dying and a little can be done to alter that outcome. She is contemplating CODE STATUS but was not ready to change status at time of our conversation earlier today. At present patient does not have an acute abdomen and may have walled off the bowel perforation previously identified. Antibiotics were expanded with addition of metronidazole based on [place] records. Diuresis continued for respiratory distress. Vitamin K given for coagulopathy earlier today. Family aware prognosis is poor. 03/13/17 Remains BiPAP dependent, currently with FiO2 50%. Continue diuresis and supportive care. DPSANDY due to arrive overnight-she is aware of severity of patient's illness and terminal nature of both acute and chronic diseases. INR stabilized after vitamin K yesterday, due to history of multiple PEs 1 mg warfarin given today. May require Lovenox pending family decision making. Suspect bowel perforation has walled off, continue antibiotics. 03/14/17 More encephalopathic than prior days-check ABG in a.m., may represent progression of disease. High flow oxygen at 15 L, recommend. Stool rest with BiPAP. Continue diuresis and supportive care. Lengthy discussion with both daughters (Libby and Sandra) both are aware of severity of patient's illness and terminal nature of his disease but report he has consistently refused DO NOT RESUSCITATE and they do not feel they should alter his decision despite worsening disease/encephalopathy. INR stabilized after vitamin K 2 days ago, warfarin resumed yesterday, 2 mg given today. 03/15/17 More encephalopathic than prior days-ABG with CO2 of 45-slightly elevated from 4 days earlier but not enough to account for lethargy demonstrated. Likely narcotic induced. High flow oxygen at 15 L, recommend.periods of rest with BiPAP. Continue diuresis and supportive care. Family committed to full code. Coagulopathy reversed with vitamin K on 03/12, warfarin resumed 03/13, 4 mg given today. Suspect bowel perforation has walled off, continue antibiotics-Levaquin/ metronidazole. Anticipate repeating CT abdomen/pelvis [address] identifying perforation at [place] on 03/07 Advised family Dobbhoff cannot be placed while on high flow oxygen and PEG tube/ surgically placed G-tube not an option with recent bowel perforation. Additionally advised family that Dobbhoff not an option outside the hospital or at a nursing facility. Continue potassium replacement, hypotonic fluids being administered due to hypernatremia. Decrease rate of diuresis given clinical improvement. Progressive anemia, reassess in a.m.-will likely need transfusion in the next day or 2. Nystatin suspension for thrush. Transfer out of ICU. 03/16/17 21:23 Patient continues to speak only with his daughters but they are interpreting his statements this afternoon as intent to discontinue active therapy. At present they're tearful and struggling with his decision but both agree he should be converted to DO NOT RESUSCITATE. At present they are unable to discontinue fluids and accordingly I've continued Lasix. Comfort care order written; I advised them that social work will see them tomorrow to discuss options of hospice consult, longterm transfer, or return to hospice house in [place]. Prior small bowel perforation appears to vault off and acute inflammatory changes have subsided-antibiotics discontinued. Given decision to focus on comfort warfarin will be discontinued. Provided there is no change in focus of care overnight I've recommended the daughters that fluids and other [id number] medications be discontinued tomorrow and I strongly recommended that they consult a hospice service to assist in patient management. 03/17/17 10:54 Patient continues to speak only with his daughters; yesterday they interpreted his wishes as stopping aggressive treatment and moving to a comfort care approach; this was done overnight. This morning they no longer feel that way and want to continue full care. He remains DO NOT RESUSCITATE. Will resume fluids per their request but decrease to 50 cc/hour and continue lasix today to achieve some balance. Social work did visit with them this morning as planned; currently the plan is to continue full care through the weekend and look toward facility [facility] in [place] on Sunday. Will continue to discuss goals of care. Prior small bowel perforation appears to vault off and acute inflammatory changes have subsided-antibiotics discontinued 03/16 and will monitor off of them. Continue to hold warfarin today but will check CBC, INR, renal panel in AM for surveillance and then discuss further. Will hold on planned hospice consult acutely and continue to discuss plans of care.
[2017-03-17] MEDS: D5-1/2NS with KCL 20mEq 1,000 ML IV SCH ×2 (10:54→11:15)
[2017-03-17] MEDS: SALINE FLUSH 10ml SYRINGE IVF PRN (11:15)
[2017-03-17] MEDS: MORPHINE SULFATE 10mg/0.5ml ORAL LIQ SL PRN (21:17)
[2017-03-18] MEDS: D5-1/2NS with KCL 20mEq 1,000 ML IV SCH (01:22)
[2017-03-18] MEDS: MORPHINE SULFATE 4mg INJECTION IVP PRN ×7 (03:08→22:34)
[2017-03-18] MEDS: BISACODYL 10 MG SUPPOSITORY RECTALLY SCH (09:02)
[2017-03-18] MEDS: FUROSEMIDE 20 MG/2 ML INJECTION IVP SCH (09:02)
[2017-03-18] MEDS: PredniSONE 10 MG TABLET PO SCH (09:02)
[2017-03-18] MEDS: NYSTATIN 500,000 units/5 ml ORAL LIQUID PO SCH ×4 (09:03→21:26)
--- NOTE | 2017-03-18 13:33 | Progress Note ---
- Date 03/18/17 Subjective: Patient seen and examined twice this morning. Nonverbal for me. Daughters asleep at the bedside throughout. Comfortable with IV morphine, not requiring antiemetics. No ROS obtainable. Objective Vital signs: Temperature 97.8 F 03/18/17 07:00 Pulse Rate 101 H 03/18/17 07:00 Respiratory Rate 14 03/18/17 07:00 Blood Pressure 104/69 03/18/17 07:00 Pulse Oximetry 92 03/18/17 07:00 Height/Weight/BMI: Height 1.8 m Weight 64.5 kg Body Mass Index 20.7 - Constitutional Present: no acute distress, cachectic, somnolent - Routine HEENT Exam Head: Present: atraumatic Eye: Present: PERRL. Absent: conjunctival icterus - Routine Respiratory Exam Present: decreased breath sounds, rhonchi, wheezes, diminished air movement. Absent: crackles - Routine Cardiovascular Exam Present: RRR - Routine Abdominal Exam Present: soft, non distended, non tender - Routine Extremities Exam Present: edema (diffusely in BUE 1+; LE with only trace edema ) - Routine Skin Exam Present: dry, warm. Absent: rash - Routine Neurological Exam Present: moving all extremities (spontaneously ) - Routine Psychiatric Exam Present: unable to assess Results - Labs CBC & Chem 7: 03/18/17 04:20 03/18/17 04:20 Microbiology Results: Microbiology 03/11/17 01:34 Peripheral/Iv Start Blood Culture - Final No Growth After 5 Days 03/11/17 01:35 Peripheral/Iv Start Blood Culture - Final No Growth After 5 Days 03/11/17 03:33 Sputum, Expectorated Sputum Culture - Final No Growth After 2 Days Assessment and Plan Assessment and Plan: Impression: Stage IV non-small cell lung cancer, extensive metastatic disease-rapidly expanding Acute hypoxic respiratory failure/pulmonary edema Intractable abdominal pain Small bowel perforation with peritonitis-identified 03/07/17 Hypokalemia-03/13/17, resolved Hypernatremia-03/15/17, resolved Thrush-03/15/17 Dehydration, improved with supportive care Nausea/vomiting Malnutrition, severe protein calorie Weight loss Dysphagia/odynophagia Coagulopathy due to warfarin (last dose warfarin 03/06 and INR 8 on 03/07 by daughter's history) Microcytic anemia Hx p-afib/SVT Constipation Depression History of PE; warfarin now held due to poor nutrition, labile INR, terminal status Plan: Patient continues to speak only with his daughters; on 03/16 they interpreted his wishes as stopping aggressive treatment and moving to a comfort care approach; this was done overnight on Sunday. In the AM on 03/17 they no longer felt that way and wanted to continue full care. --> Hospice consult cancelled, in discussion with CM will plan for facility DC to [place] tomorrow for ongoing care He remains DO NOT RESUSCITATE. Fluids resumed per daughters' request on 03/17 but more edematous today, labs stable, no indication for further IVF and held this afternoon. Social work did visit with them 03/17 as planned; will reevaluate in AM regarding DC planning. Prior small bowel perforation appears to vault off and acute inflammatory changes have subsided-antibiotics discontinued 03/16 and monitoring off them, no leukocytosis, stable overall. Continue to hold warfarin due to limited po intake and terminal illness. Discussed with case management and bedside RN. Resuscitation Status: Do Not Resuscitate Hospital Course Summary Disclaimer: The visit summary below is not to be considered part of the above Progress Note. Hospital Course: 03/11/17-admission 1. stage IV non-small cell lung cancer, concern with metastases that may be causing partial small bowel obstruction 2. severe protein calorie malnutrition related to above, with odynophagia 3. bronchitis with possible sepsis 4. Anemia 5. History of supraventricular tachycardia for which I think he is on Coumadin , but unclear at this time 6. Severe pain related to above. Patient's functional status appears to be incompatible with further chemotherapy at this point. Based on data currently available hospice seems appropriate. He is not ready to hear or consider this and my understanding is this has been perhaps presented to him by his oncologist as well. He has family are asking about a possible feeding tube, again not sure that this is a good idea but may or may not be a possibility. Not certainly the case with his INR 5. No recent imaging has been obtained to stage his intra-abdominal pathology that we would need to do this. I'm concerned as noted about possible small bowel obstruction. He also states he has not had a bowel movement and 1/2-2 weeks. I 've ordered a suppository and enemas to be available. For now we'll do IV fluids and IV pain medicine, and ask our day hospitalist to review the treatment options. We could consider to have his care return to [place], but clearly the family and the care team were not on the same page with what is happened here. Addendum- Attempting to obtain records from [facility] regarding what was actively being treated during recent hospitalization. Daughter reports that he may have been treated for an abdominal abscess but he was also told that he did not have an abdominal abscess. Antibiotics were initiated empirically overnight for possible bronchitis and will be continued pending record review. Will additionally need to discuss patient's status with his usual managing oncologist and if appropriate consult oncology here. This has been discussed with the patient and his daughter. At present continue hydration, pain medications, and antiemetics in addition to IV antibiotics. NG tube placement was attempted overnight to initiate nutritional supplementation however could not be passed due to development of epistaxis and anatomy of the patient's neck. Feeding tube can be readdressed although I'm not sure if there will be a good option for this patient due to widely metastatic cancer. Dobbhoff can be attempted under fluoroscopy guidance following further correction of INR. Patient has declined fentanyl patch for basal pain control. Roxanol will be initiated to offer alternative to IV narcotic. Initiate Pepcid 20 mg IV every 12 hours with plans to convert to oral administration if able to do so. Suppositories/enemas prn for constipation. I spoke with the hospitalist who is on at [facility] today but unfortunately they were unfamiliar with the patient and can offer no additional insight into patient's recent treatment. 03/12/17 Marked decompensation overnight requiring transfer to the ICU and ventilatory assistance with BiPAP to maintain oxygenation. Developments discussed with the patient's oncologist this morning-he strongly recommended DO NOT RESUSCITATE and indicated that although additional chemotherapy has been offered to the patient the patient was advised that there was little chance that this would offer any meaningful response. He was fully supportive of hospice but indicated he's been unable to bring patient/family to the point of recognizing the advanced state of his disease. Records obtained from [facility] indicating 40% increase in tumor bulk between CT 02/23/17 and 03/07/17; additionally CT on 03/07 revealed tumor invasion of the small bowel with perforation and peritonitis. While hospitalized in [place] the patient was being treated with Cipro or Levaquin and metronidazole for peritonitis. He was seen by surgical consult who advised family and patient that tumor bulk precluded surgical intervention and recommended hospice care. Patient's daughter Libby was contacted by phone-developments overnight and results of recent CT were discussed with her. Additionally I advised her of Dr. Salinas's recommendation for DO NOT RESUSCITATE. She plans to travel from [place] to [place] in 2 days and hopes to delay patient's until that time. She is aware the patient is dying and a little can be done to alter that outcome. She is contemplating CODE STATUS but was not ready to change status at time of our conversation earlier today. At present patient does not have an acute abdomen and may have walled off the bowel perforation previously identified. Antibiotics were expanded with addition of metronidazole based on [place] records. Diuresis continued for respiratory distress. Vitamin K given for coagulopathy earlier today. Family aware prognosis is poor. 03/13/17 Remains BiPAP dependent, currently with FiO2 50%. Continue diuresis and supportive care. SHAHID due to arrive overnight-she is aware of severity of patient's illness and terminal nature of both acute and chronic diseases. INR stabilized after vitamin K yesterday, due to history of multiple PEs 1 mg warfarin given today. May require Lovenox pending family decision making. Suspect bowel perforation has walled off, continue antibiotics. 03/14/17 More encephalopathic than prior days-check ABG in a.m., may represent progression of disease. High flow oxygen at 15 L, recommend. Stool rest with BiPAP. Continue diuresis and supportive care. Lengthy discussion with both daughters (Libby and Sandra) both are aware of severity of patient's illness and terminal nature of his disease but report he has consistently refused DO NOT RESUSCITATE and they do not feel they should alter his decision despite worsening disease/encephalopathy. INR stabilized after vitamin K 2 days ago, warfarin resumed yesterday, 2 mg given today. 03/15/17 More encephalopathic than prior days-ABG with CO2 of 45-slightly elevated from 4 days earlier but not enough to account for lethargy demonstrated. Likely narcotic induced. High flow oxygen at 15 L, recommend.periods of rest with BiPAP. Continue diuresis and supportive care. Family committed to full code. Coagulopathy reversed with vitamin K on 03/12, warfarin resumed 03/13, 4 mg given today. Suspect bowel perforation has walled off, continue antibiotics-Levaquin/ metronidazole. Anticipate repeating CT abdomen/pelvis [address] identifying perforation at [place] on 03/07 Advised family Dobbhoff cannot be placed while on high flow oxygen and PEG tube/ surgically placed G-tube not an option with recent bowel perforation. Additionally advised family that Dobbhoff not an option outside the hospital or at a nursing facility. Continue potassium replacement, hypotonic fluids being administered due to hypernatremia. Decrease rate of diuresis given clinical improvement. Progressive anemia, reassess in a.m.-will likely need transfusion in the next day or 2. Nystatin suspension for thrush. Transfer out of ICU. 03/16/17 21:23 Patient continues to speak only with his daughters but they are interpreting his statements this afternoon as intent to discontinue active therapy. At present they're tearful and struggling with his decision but both agree he should be converted to DO NOT RESUSCITATE. At present they are unable to discontinue fluids and accordingly I've continued Lasix. Comfort care order written; I advised them that social work will see them tomorrow to discuss options of hospice consult, [facility] transfer, or return to hospice house in [place]. Prior small bowel perforation appears to vault off and acute inflammatory changes have subsided-antibiotics discontinued. Given decision to focus on comfort warfarin will be discontinued. Provided there is no change in focus of care overnight I've recommended the daughters that fluids and other [id number] medications be discontinued tomorrow and I strongly recommended that they consult a hospice service to assist in patient management. 03/17/17 10:54 Patient continues to speak only with his daughters; yesterday they interpreted his wishes as stopping aggressive treatment and moving to a comfort care approach; this was done overnight. This morning they no longer feel that way and want to continue full care. He remains DO NOT RESUSCITATE. Will resume fluids per their request but decrease to 50 cc/hour and continue lasix today to achieve some balance. Social work did visit with them this morning as planned; currently the plan is to continue full care through the weekend and look toward facility [place] in [place] on Sunday. Will continue to discuss goals of care. Prior small bowel perforation appears to vault off and acute inflammatory changes have subsided-antibiotics discontinued 03/16 and will monitor off of them. Continue to hold warfarin today but will check CBC, INR, renal panel in AM for surveillance and then discuss further. Will hold on planned hospice consult acutely and continue to discuss plans of care. 03/18/17 13:37 Patient continues to speak only with his daughters; on 03/16 they interpreted his wishes as stopping aggressive treatment and moving to a comfort care approach; this was done overnight on Sunday. In the AM on 03/17 they no longer felt that way and wanted to continue full care. --> Hospice consult cancelled, in discussion with CM will plan for facility DC to [place] tomorrow for ongoing care He remains DO NOT RESUSCITATE. Fluids resumed per daughters' request on 03/17 but more edematous today, labs stable, no indication for further IVF and held this afternoon. Social work did visit with them 03/17 as planned; will reevaluate in AM regarding DC planning. Prior small bowel perforation appears to vault off and acute inflammatory changes have subsided-antibiotics discontinued 03/16 and monitoring off them, no leukocytosis, stable overall. Continue to hold warfarin due to limited po intake and terminal illness.
[2017-03-18] MEDS: SALINE FLUSH 10ml SYRINGE IVF PRN (15:01)
[2017-03-19] MEDS: MORPHINE SULFATE 4mg INJECTION IVP PRN ×6 (03:30→19:55)
[2017-03-19] MEDS: PredniSONE 10 MG TABLET PO SCH (08:03)
[2017-03-19] MEDS: BISACODYL 10 MG SUPPOSITORY RECTALLY SCH (08:07)
[2017-03-19] MEDS: NYSTATIN 500,000 units/5 ml ORAL LIQUID PO SCH ×6 (08:07→21:00)
--- NOTE | 2017-03-19 17:41 | Progress Note ---
- Date 03/19/17 Subjective: Daughters are Mr. Lux's bedside and speak for him. He reports he required deep suctioning yesterday due to ineffective cough. Sandra reports he had a small bowel movement yesterday and has taken ice chips and a few sips of other liquids but she is not sure that he swallowing them. He was unresponsive over the weekend but has been much more alert today although has not spoken very much. Cough is weak. Both daughters hope to discharge to facility in [place] in the near future. They remain undecided about a Dobbhoff. Sandra reports that he passed several clots of blood in the urine yesterday but that it's not been noted today. Daughters both state that the patient decided he wished to continue active care Sunday evening, that he doesn't want hospice care, and that he wants to be a full code. Objective Vital signs: Temperature 97.2 F 03/19/17 14:33 Pulse Rate 130 H 03/19/17 14:33 Respiratory Rate 22 03/19/17 14:33 Blood Pressure 123/86 03/19/17 14:33 Pulse Oximetry 95 03/19/17 14:33 NAD, drowsy, nonverbal in my presence Thrush present on tongue, sclera anicteric, conjugate gaze Respirations nonlabored with diminished breath sounds anterior rouse bilaterally, breath sounds coarse, no wheezing Sternal mass unchanged Abdomen soft with diminished bowel sounds Extremities without edema Height/Weight/BMI: Height 1.8 m Weight 64.5 kg Body Mass Index 20.7 Results - Labs CBC & Chem 7: 03/18/17 04:20 03/18/17 04:20 Labs: INR 2.10 Phosphorus 3.0, albumin 2.6 Microbiology Results: Microbiology 03/11/17 01:34 Peripheral/Iv Start Blood Culture - Final No Growth After 5 Days 03/11/17 01:35 Peripheral/Iv Start Blood Culture - Final No Growth After 5 Days 03/11/17 03:33 Sputum, Expectorated Sputum Culture - Final No Growth After 2 Days Assessment and Plan (1) Non-small cell carcinoma of left lung, stage 4 Current visit: Yes Status: Acute (2) Dehydration Problem details: POA Current visit: Yes Status: Acute (3) Metastatic lung cancer (metastasis from lung to other site) Problem details: sternum, lymph nodes, right pelvis, right adrenal gland, brain , mediastinum, right lung Current visit: Yes Status: Acute (4) Acute respiratory failure with hypoxia Current visit: Yes Status: Acute Assessment and Plan: Impression: Stage IV non-small cell lung cancer, extensive metastatic disease-rapidly expanding Acute hypoxic respiratory failure/pulmonary edema Intractable abdominal pain Small bowel perforation with peritonitis-identified 03/07/17 Hypokalemia-03/13/17, resolved Hypernatremia-03/15/17, resolved Thrush-03/15/17 Dehydration, improved with supportive care Nausea/vomiting Malnutrition, severe protein calorie Weight loss Dysphagia/odynophagia Coagulopathy due to warfarin (last dose warfarin 03/06 and INR 8 on 03/07 by daughter's history) Microcytic anemia Hx p-afib/SVT Constipation Depression History of PE; warfarin now held due to poor nutrition, labile INR, terminal status Plan: Patient continues to speak only with his daughters; full code resumed per daughter's request-unclear what patient wants. Case management looking at discharge options in [place], daughters are aware that discharge with Dobbhoff will be problematic. Case management clarifying if any facilities take a Dobbhoff prior to placement. Fluids resumed per daughters' request on 03/17 but more edematous today, IV fluids held yesterday due to increased edema. Increased tachycardia today, will resume fluids at 40 mL per hour. Prior small bowel perforation appears to walled off and acute inflammatory changes have subsided-antibiotics discontinued 03/16 and monitoring off them, no leukocytosis, stable overall. Continue to hold warfarin due to limited po intake and terminal illness. INR remains therapeutic. Discussed with case management, daughters, and bedside RN several times today. DVT Prophylaxis: Coumadin Resuscitation Status: Full Code Hospital Course Summary Disclaimer: The visit summary below is not to be considered part of the above Progress Note. Hospital Course: 03/11/17-admission 1. stage IV non-small cell lung cancer, concern with metastases that may be causing partial small bowel obstruction 2. severe protein calorie malnutrition related to above, with odynophagia 3. bronchitis with possible sepsis 4. Anemia 5. History of supraventricular tachycardia for which I think he is on Coumadin , but unclear at this time 6. Severe pain related to above. Patient's functional status appears to be incompatible with further chemotherapy at this point. Based on data currently available hospice seems appropriate. He is not ready to hear or consider this and my understanding is this has been perhaps presented to him by his oncologist as well. He has family are asking about a possible feeding tube, again not sure that this is a good idea but may or may not be a possibility. Not certainly the case with his INR 5. No recent imaging has been obtained to stage his intra-abdominal pathology that we would need to do this. I'm concerned as noted about possible small bowel obstruction. He also states he has not had a bowel movement and 1/2-2 weeks. I 've ordered a suppository and enemas to be available. For now we'll do IV fluids and IV pain medicine, and ask our day hospitalist to review the treatment options. We could consider to have his care return to [place], but clearly the family and the care team were not on the same page with what is happened here. Addendum- Attempting to obtain records from [facility] regarding what was actively being treated during recent hospitalization. Daughter reports that he may have been treated for an abdominal abscess but he was also told that he did not have an abdominal abscess. Antibiotics were initiated empirically overnight for possible bronchitis and will be continued pending record review. Will additionally need to discuss patient's status with his usual managing oncologist and if appropriate consult oncology here. This has been discussed with the patient and his daughter. At present continue hydration, pain medications, and antiemetics in addition to IV antibiotics. NG tube placement was attempted overnight to initiate nutritional supplementation however could not be passed due to development of epistaxis and anatomy of the patient's neck. Feeding tube can be readdressed although I'm not sure if there will be a good option for this patient due to widely metastatic cancer. Dobbhoff can be attempted under fluoroscopy guidance following further correction of INR. Patient has declined fentanyl patch for basal pain control. Roxanol will be initiated to offer alternative to IV narcotic. Initiate Pepcid 20 mg IV every 12 hours with plans to convert to oral administration if able to do so. Suppositories/enemas prn for constipation. I spoke with the hospitalist who is on at [facility] today but unfortunately they were unfamiliar with the patient and can offer no additional insight into patient's recent treatment. 03/12/17 Marked decompensation overnight requiring transfer to the ICU and ventilatory assistance with BiPAP to maintain oxygenation. Developments discussed with the patient's oncologist this morning-he strongly recommended DO NOT RESUSCITATE and indicated that although additional chemotherapy has been offered to the patient the patient was advised that there was little chance that this would offer any meaningful response. He was fully supportive of hospice but indicated he's been unable to bring patient/family to the point of recognizing the advanced state of his disease. Records obtained from [facility] indicating 40% increase in tumor bulk between CT 02/23/17 and 03/07/17; additionally CT on 03/07 revealed tumor invasion of the small bowel with perforation and peritonitis. While hospitalized in [place] the patient was being treated with Cipro or Levaquin and metronidazole for peritonitis. He was seen by surgical consult who advised family and patient that tumor bulk precluded surgical intervention and recommended hospice care. Patient's daughter Libby was contacted by phone-developments overnight and results of recent CT were discussed with her. Additionally I advised her of Dr. Salinas's recommendation for DO NOT RESUSCITATE. She plans to travel from [place] to [place] in 2 days and hopes to delay patient's until that time. She is aware the patient is dying and a little can be done to alter that outcome. She is contemplating CODE STATUS but was not ready to change status at time of our conversation earlier today. At present patient does not have an acute abdomen and may have walled off the bowel perforation previously identified. Antibiotics were expanded with addition of metronidazole based on [place] records. Diuresis continued for respiratory distress. Vitamin K given for coagulopathy earlier today. Family aware prognosis is poor. 03/13/17 Remains BiPAP dependent, currently with FiO2 50%. Continue diuresis and supportive care. DPOA due to arrive overnight-she is aware of severity of patient's illness and terminal nature of both acute and chronic diseases. INR stabilized after vitamin K yesterday, due to history of multiple PEs 1 mg warfarin given today. May require Lovenox pending family decision making. Suspect bowel perforation has walled off, continue antibiotics. 03/14/17 More encephalopathic than prior days-check ABG in a.m., may represent progression of disease. High flow oxygen at 15 L, recommend. Stool rest with BiPAP. Continue diuresis and supportive care. Lengthy discussion with both daughters (Libby and Sandra) both are aware of severity of patient's illness and terminal nature of his disease but report he has consistently refused DO NOT RESUSCITATE and they do not feel they should alter his decision despite worsening disease/encephalopathy. INR stabilized after vitamin K 2 days ago, warfarin resumed yesterday, 2 mg given today. 03/15/17 More encephalopathic than prior days-ABG with CO2 of 45-slightly elevated from 4 days earlier but not enough to account for lethargy demonstrated. Likely narcotic induced. High flow oxygen at 15 L, recommend.periods of rest with BiPAP. Continue diuresis and supportive care. Family committed to full code. Coagulopathy reversed with vitamin K on 03/12, warfarin resumed 03/13, 4 mg given today. Suspect bowel perforation has walled off, continue antibiotics-Levaquin/ metronidazole. Anticipate repeating CT abdomen/pelvis [address] identifying perforation at [place] on 03/07 Advised family Dobbhoff cannot be placed while on high flow oxygen and PEG tube/ surgically placed G-tube not an option with recent bowel perforation. Additionally advised family that Dobbhoff not an option outside the hospital or at a nursing facility. Continue potassium replacement, hypotonic fluids being administered due to hypernatremia. Decrease rate of diuresis given clinical improvement. Progressive anemia, reassess in a.m.-will likely need transfusion in the next day or 2. Nystatin suspension for thrush. Transfer out of ICU. 03/16/17 21:23 Patient continues to speak only with his daughters but they are interpreting his statements this afternoon as intent to discontinue active therapy. At present they're tearful and struggling with his decision but both agree he should be converted to DO NOT RESUSCITATE. At present they are unable to discontinue fluids and accordingly I've continued Lasix. Comfort care order written; I advised them that social work will see them tomorrow to discuss options of hospice consult, longterm transfer, or return to hospice house in [place]. Prior small bowel perforation appears to vault off and acute inflammatory changes have subsided-antibiotics discontinued. Given decision to focus on comfort warfarin will be discontinued. Provided there is no change in focus of care overnight I've recommended the daughters that fluids and other [id number] medications be discontinued tomorrow and I strongly recommended that they consult a hospice service to assist in patient management. 03/17/17 10:54 Patient continues to speak only with his daughters; yesterday they interpreted his wishes as stopping aggressive treatment and moving to a comfort care approach; this was done overnight. This morning they no longer feel that way and want to continue full care. He remains DO NOT RESUSCITATE. Will resume fluids per their request but decrease to 50 cc/hour and continue lasix today to achieve some balance. Social work did visit with them this morning as planned; currently the plan is to continue full care through the weekend and look toward facility DC in [place] on Sunday. Will continue to discuss goals of care. Prior small bowel perforation appears to vault off and acute inflammatory changes have subsided-antibiotics discontinued 03/16 and will monitor off of them. Continue to hold warfarin today but will check CBC, INR, renal panel in AM for surveillance and then discuss further. Will hold on planned hospice consult acutely and continue to discuss plans of care. 03/18/17 13:37 Patient continues to speak only with his daughters; on 03/16 they interpreted his wishes as stopping aggressive treatment and moving to a comfort care approach; this was done overnight on Sunday. In the AM on 03/17 they no longer felt that way and wanted to continue full care. --> Hospice consult cancelled, in discussion with CM will plan for facility DC to [place] tomorrow for ongoing care He remains DO NOT RESUSCITATE. Fluids resumed per daughters' request on 03/17 but more edematous today, labs stable, no indication for further IVF and held this afternoon. Social work did visit with them 03/17 as planned; will reevaluate in AM regarding DC planning. Prior small bowel perforation appears to vault off and acute inflammatory changes have subsided-antibiotics discontinued 03/16 and monitoring off them, no leukocytosis, stable overall. Continue to hold warfarin due to limited po intake and terminal illness. 03/19/17 Daughters of requested full code and resumption of low-volume IV fluids due to decreased urine output. Discharge planning underway-limited capacity available in [place] at present.
[2017-03-19] MEDS: POTASSIUM CHLORIDE INJ 20 MEQ in D5NS 1,000 ML IV SCH (18:32)
[2017-03-20] MEDS: MORPHINE SULFATE 4mg INJECTION IVP PRN ×6 (00:05→22:45)
[2017-03-20] MEDS: PredniSONE 10 MG TABLET PO SCH (08:04)
[2017-03-20] MEDS: NYSTATIN 500,000 units/5 ml ORAL LIQUID PO SCH ×4 (08:56→21:28)
[2017-03-20] MEDS: BISACODYL 10 MG SUPPOSITORY RECTALLY SCH (08:57)
[2017-03-20] MEDS: POTASSIUM CHLORIDE INJ 20 MEQ in D5NS 1,000 ML IV SCH (17:53)
[2017-03-20] MEDS: ONDANSETRON 4 MG/2 ML INJECTION IVP PRN (20:04)
--- NOTE | 2017-03-20 20:06 | Progress Note ---
- Date 03/20/17 Subjective: Mr. Lux was on BiPAP when seen. Daughters report that he is requested ventilatory assistance today and has been on BiPAP most of the day. He required suctioning again overnight and is resting well since BiPAP was resumed. He had a small bowel movement again today and took some ice chips yesterday but has had no other oral intake. Daughter reports that his urine has cleared and no further blood clots after fluids were resumed. Pain control seems to be adequate. Daughters are frustrated with [facility] facility she prefers to determine why father was declined. Sandra asked if we can try CPAP instead of BiPAP because that would be "more acceptable "to facilities. Objective Vital signs: Temperature 96.8 F 03/20/17 15:00 Pulse Rate 119 H 03/20/17 15:00 Respiratory Rate 16 03/20/17 15:00 Blood Pressure 128/80 03/20/17 15:00 Pulse Oximetry 99 03/20/17 15:00 NAD, sleeping-occasionally eyes are cracked open but does not acknowledge me or offer any history Respirations are nonlabored with clear breath sounds anteriorly, no wheezing or coarse sounds at this time Regular rhythm, S1-S2 Abdomen is soft in the upper abdomen and quite firm lower abdomen; I was able to palpate the abdomen more deeply than I have previously without eliciting pain , bowel sounds present No peripheral edema Height/Weight/BMI: Height 1.8 m Weight 58.3 kg Body Mass Index 20.7 Results - Labs CBC & Chem 7: 03/18/17 04:20 03/18/17 04:20 Assessment and Plan (1) Non-small cell carcinoma of left lung, stage 4 Current visit: Yes Status: Acute (2) Dehydration Problem details: POA Current visit: Yes Status: Acute (3) Metastatic lung cancer (metastasis from lung to other site) Problem details: sternum, lymph nodes, right pelvis, right adrenal gland, brain , mediastinum, right lung Current visit: Yes Status: Acute (4) Acute respiratory failure with hypoxia Current visit: Yes Status: Acute Assessment and Plan: Impression: Stage IV non-small cell lung cancer, extensive metastatic disease-rapidly expanding Acute hypoxic respiratory failure/pulmonary edema Intractable abdominal pain Small bowel perforation with peritonitis-identified 03/07/17 Hypokalemia-03/13/17, resolved Hypernatremia-03/15/17, resolved Thrush-03/15/17 Dehydration, improved with supportive care Nausea/vomiting Malnutrition, severe protein calorie Weight loss Dysphagia/odynophagia Coagulopathy due to warfarin (last dose warfarin 03/06 and INR 8 on 03/07 by daughter's history) Microcytic anemia Hx p-afib/SVT Constipation Depression History of PE; warfarin now held due to poor nutrition, labile INR, terminal status Plan: Patient continues to speak only with his daughters; full code resumed yesterday per daughter's request-unclear what patient wants. Case management looking at discharge options in [place], declined by multiple facilities. Trial CPAP with inspiratory pressure [address] BiPAP-discussed with RT. Case management has asked about palliative care consult-Sandra reports that patient is receiving palliative care through his oncologist and she doesn't believe additional input is needed. I think additional consultants would frustrate the patient's daughters and offered no benefit. Prior small bowel perforation appears to walled off and acute inflammatory changes have subsided-antibiotics discontinued 03/16 and monitoring off them, no leukocytosis, stable overall. Continue to hold warfarin due to limited po intake and terminal illness. Recheck labs in a.m. Discussed with case management, daughters, and bedside RN several times today. Hospital Course Summary Disclaimer: The visit summary below is not to be considered part of the above Progress Note. Hospital Course: 03/11/17-admission 1. stage IV non-small cell lung cancer, concern with metastases that may be causing partial small bowel obstruction 2. severe protein calorie malnutrition related to above, with odynophagia 3. bronchitis with possible sepsis 4. Anemia 5. History of supraventricular tachycardia for which I think he is on Coumadin , but unclear at this time 6. Severe pain related to above. Patient's functional status appears to be incompatible with further chemotherapy at this point. Based on data currently available hospice seems appropriate. He is not ready to hear or consider this and my understanding is this has been perhaps presented to him by his oncologist as well. He has family are asking about a possible feeding tube, again not sure that this is a good idea but may or may not be a possibility. Not certainly the case with his INR 5. No recent imaging has been obtained to stage his intra-abdominal pathology that we would need to do this. I'm concerned as noted about possible small bowel obstruction. He also states he has not had a bowel movement and 1/2-2 weeks. I 've ordered a suppository and enemas to be available. For now we'll do IV fluids and IV pain medicine, and ask our day hospitalist to review the treatment options. We could consider to have his care return to [place], but clearly the family and the care team were not on the same page with what is happened here. Addendum- Attempting to obtain records from [facility] regarding what was actively being treated during recent hospitalization. Daughter reports that he may have been treated for an abdominal abscess but he was also told that he did not have an abdominal abscess. Antibiotics were initiated empirically overnight for possible bronchitis and will be continued pending record review. Will additionally need to discuss patient's status with his usual managing oncologist and if appropriate consult oncology here. This has been discussed with the patient and his daughter. At present continue hydration, pain medications, and antiemetics in addition to IV antibiotics. NG tube placement was attempted overnight to initiate nutritional supplementation however could not be passed due to development of epistaxis and anatomy of the patient's neck. Feeding tube can be readdressed although I'm not sure if there will be a good option for this patient due to widely metastatic cancer. Dobbhoff can be attempted under fluoroscopy guidance following further correction of INR. Patient has declined fentanyl patch for basal pain control. Roxanol will be initiated to offer alternative to IV narcotic. Initiate Pepcid 20 mg IV every 12 hours with plans to convert to oral administration if able to do so. Suppositories/enemas prn for constipation. I spoke with the hospitalist who is on at [facility] today but unfortunately they were unfamiliar with the patient and can offer no additional insight into patient's recent treatment. 03/12/17 Marked decompensation overnight requiring transfer to the ICU and ventilatory assistance with BiPAP to maintain oxygenation. Developments discussed with the patient's oncologist this morning-he strongly recommended DO NOT RESUSCITATE and indicated that although additional chemotherapy has been offered to the patient the patient was advised that there was little chance that this would offer any meaningful response. He was fully supportive of hospice but indicated he's been unable to bring patient/family to the point of recognizing the advanced state of his disease. Records obtained from [facility] indicating 40% increase in tumor bulk between CT 02/23/17 and 03/07/17; additionally CT on 03/07 revealed tumor invasion of the small bowel with perforation and peritonitis. While hospitalized in [place] the patient was being treated with Cipro or Levaquin and metronidazole for peritonitis. He was seen by surgical consult who advised family and patient that tumor bulk precluded surgical intervention and recommended hospice care. Patient's daughter Libby was contacted by phone-developments overnight and results of recent CT were discussed with her. Additionally I advised her of Dr. Salinas's recommendation for DO NOT RESUSCITATE. She plans to travel from [place] to [place] in 2 days and hopes to delay patient's until that time. She is aware the patient is dying and a little can be done to alter that outcome. She is contemplating CODE STATUS but was not ready to change status at time of our conversation earlier today. At present patient does not have an acute abdomen and may have walled off the bowel perforation previously identified. Antibiotics were expanded with addition of metronidazole based on [place] records. Diuresis continued for respiratory distress. Vitamin K given for coagulopathy earlier today. Family aware prognosis is poor. 03/13/17 Remains BiPAP dependent, currently with FiO2 50%. Continue diuresis and supportive care. SHAHID due to arrive overnight-she is aware of severity of patient's illness and terminal nature of both acute and chronic diseases. INR stabilized after vitamin K yesterday, due to history of multiple PEs 1 mg warfarin given today. May require Lovenox pending family decision making. Suspect bowel perforation has walled off, continue antibiotics. 03/14/17 More encephalopathic than prior days-check ABG in a.m., may represent progression of disease. High flow oxygen at 15 L, recommend. Stool rest with BiPAP. Continue diuresis and supportive care. Lengthy discussion with both daughters (Libby and Sandra) both are aware of severity of patient's illness and terminal nature of his disease but report he has consistently refused DO NOT RESUSCITATE and they do not feel they should alter his decision despite worsening disease/encephalopathy. INR stabilized after vitamin K 2 days ago, warfarin resumed yesterday, 2 mg given today. 03/15/17 More encephalopathic than prior days-ABG with CO2 of 45-slightly elevated from 4 days earlier but not enough to account for lethargy demonstrated. Likely narcotic induced. High flow oxygen at 15 L, recommend.periods of rest with BiPAP. Continue diuresis and supportive care. Family committed to full code. Coagulopathy reversed with vitamin K on 03/12, warfarin resumed 03/13, 4 mg given today. Suspect bowel perforation has walled off, continue antibiotics-Levaquin/ metronidazole. Anticipate repeating CT abdomen/pelvis [address] identifying perforation at [place] on 03/07 Advised family Dobbhoff cannot be placed while on high flow oxygen and PEG tube/ surgically placed G-tube not an option with recent bowel perforation. Additionally advised family that Dobbhoff not an option outside the hospital or at a nursing facility. Continue potassium replacement, hypotonic fluids being administered due to hypernatremia. Decrease rate of diuresis given clinical improvement. Progressive anemia, reassess in a.m.-will likely need transfusion in the next day or 2. Nystatin suspension for thrush. Transfer out of ICU. 03/16/17 21:23 Patient continues to speak only with his daughters but they are interpreting his statements this afternoon as intent to discontinue active therapy. At present they're tearful and struggling with his decision but both agree he should be converted to DO NOT RESUSCITATE. At present they are unable to discontinue fluids and accordingly I've continued Lasix. Comfort care order written; I advised them that social work will see them tomorrow to discuss options of hospice consult, detention transfer, or return to hospice house in [place]. Prior small bowel perforation appears to vault off and acute inflammatory changes have subsided-antibiotics discontinued. Given decision to focus on comfort warfarin will be discontinued. Provided there is no change in focus of care overnight I've recommended the daughters that fluids and other coa-iwdvqhn-gxall medications be discontinued tomorrow and I strongly recommended that they consult a hospice service to assist in patient management. 03/17/17 10:54 Patient continues to speak only with his daughters; yesterday they interpreted his wishes as stopping aggressive treatment and moving to a comfort care approach; this was done overnight. This morning they no longer feel that way and want to continue full care. He remains DO NOT RESUSCITATE. Will resume fluids per their request but decrease to 50 cc/hour and continue lasix today to achieve some balance. Social work did visit with them this morning as planned; currently the plan is to continue full care through the weekend and look toward facility DC in [place] on Sunday. Will continue to discuss goals of care. Prior small bowel perforation appears to vault off and acute inflammatory changes have subsided-antibiotics discontinued 03/16 and will monitor off of them. Continue to hold warfarin today but will check CBC, INR, renal panel in AM for surveillance and then discuss further. Will hold on planned hospice consult acutely and continue to discuss plans of care. 03/18/17 13:37 Patient continues to speak only with his daughters; on 03/16 they interpreted his wishes as stopping aggressive treatment and moving to a comfort care approach; this was done overnight on Sunday. In the AM on 03/17 they no longer felt that way and wanted to continue full care. --> Hospice consult cancelled, in discussion with CM will plan for facility DC to [place] tomorrow for ongoing care He remains DO NOT RESUSCITATE. Fluids resumed per daughters' request on 03/17 but more edematous today, labs stable, no indication for further IVF and held this afternoon. Social work did visit with them 03/17 as planned; will reevaluate in AM regarding DC planning. Prior small bowel perforation appears to vault off and acute inflammatory changes have subsided-antibiotics discontinued 03/16 and monitoring off them, no leukocytosis, stable overall. Continue to hold warfarin due to limited po intake and terminal illness. 03/19/17 Daughters of requested full code and resumption of low-volume IV fluids due to decreased urine output. Discharge planning underway-limited capacity available in [place] at present. 03/20/17 Case management looking at discharge options in [place], declined by multiple facilities. Trial CPAP with inspiratory pressure [address]AP-discussed with RT.
[2017-03-21] MEDS: MORPHINE SULFATE 4mg INJECTION IVP PRN ×2 (01:41→04:17)
[2017-03-21] MEDS: SALINE FLUSH 10ml SYRINGE IVF PRN (01:41)
[2017-03-21] MEDS: ONDANSETRON 4 MG/2 ML INJECTION IVP PRN (04:19)
[2017-03-21] MEDS: PredniSONE 10 MG TABLET PO SCH (09:50)
[2017-03-21] MEDS: NYSTATIN 500,000 units/5 ml ORAL LIQUID PO SCH ×4 (09:51→19:59)
[2017-03-21] MEDS: BISACODYL 10 MG SUPPOSITORY RECTALLY SCH (10:05)
[2017-03-21] MEDS: MORPHINE SULFATE 10mg/0.5ml ORAL LIQ SL PRN ×4 (13:03→19:59)
[2017-03-21] MEDS ORDERED: OXYMETAZOLINE 0.05% NASAL SPRAY 15ml EA NOSTRIL PRN (14:58)
[2017-03-21] MEDS ORDERED: ChlorproMAZINE INJ 25 MG in NS 50 ML IV PRN (16:45)
[2017-03-21] MEDS: POTASSIUM CHLORIDE INJ 20 MEQ in D5NS 1,000 ML IV SCH (16:48)
--- NOTE | 2017-03-21 16:51 | Progress Note ---
- Date 03/21/17 Subjective: Mr. Lux was resting comfortably when seen; oxygen was off and there was no indication of respiratory distress however he did assist when I placed nasal cannula back in position. The patient acknowledged my presence visually but did not respond to questions. His daughter Felicia was at bedside and reported ongoing difficulty with hiccups overnight and some minor epistaxis after nasal suctioning. Patient has had small amounts of water to sip on intermittently but little else orally. Nursing requested "nasal spray" for nasal bleeding per Sandra 's request and reported a small bowel movement yesterday, no fever, and no need for BiPAP overnight. Objective Vital signs: Temperature 96.2 F L 03/21/17 15:34 Pulse Rate 109 H 03/21/17 15:34 Respiratory Rate 16 03/21/17 07:00 Blood Pressure 111/78 03/21/17 15:34 Pulse Oximetry 100 03/21/17 15:34 I/O 1274/950; weight stable Awake, nonverbal Conjunctiva clear, conjugate gaze, right sided cervical adenopathy visible, upper sternal nodule unchanged visually Respirations nonlabored, anterior breath sounds coarse Regular rhythm, S1-S2 Abdomen firm, minor tenderness on palpation upper abdomen, diminished bowel sounds Without edema Rhythm: Normal Sinus Rhythm Height/Weight/BMI: Height 1.8 m Weight 58.1 kg Body Mass Index 20.7 Results - Labs CBC & Chem 7: 03/18/17 04:20 03/21/17 04:28 Labs: INR 2.79 Microbiology Results: Microbiology 03/11/17 01:34 Peripheral/Iv Start Blood Culture - Final No Growth After 5 Days 03/11/17 01:35 Peripheral/Iv Start Blood Culture - Final No Growth After 5 Days 03/11/17 03:33 Sputum, Expectorated Sputum Culture - Final No Growth After 2 Days Assessment and Plan (1) Non-small cell carcinoma of left lung, stage 4 Current visit: Yes Status: Acute (2) Dehydration Problem details: POA Current visit: Yes Status: Acute (3) Metastatic lung cancer (metastasis from lung to other site) Problem details: sternum, lymph nodes, right pelvis, right adrenal gland, brain , mediastinum, right lung Current visit: Yes Status: Acute (4) Acute respiratory failure with hypoxia Current visit: Yes Status: Acute Assessment and Plan: Impression: Stage IV non-small cell lung cancer, extensive metastatic disease-rapidly expanding Acute hypoxic respiratory failure/pulmonary edema Intractable abdominal pain Small bowel perforation with peritonitis-identified 03/07/17; no evidence of ongoing peritonitis on repeat CT 03/16 Hypokalemia-03/13/17, resolved Hypernatremia-03/15/17, resolved Thrush-03/15/17 Dehydration, improved with supportive care Nausea/vomiting Malnutrition, severe protein calorie Weight loss Dysphagia/odynophagia Coagulopathy due to warfarin (last dose warfarin 03/06 and INR 8 on 03/07 by daughter's history) Microcytic anemia Hx p-afib/SVT Constipation Depression History of PE; warfarin now held due to poor nutrition, labile INR, terminal status Plan: Patient continues to speak only with his daughters; full code resumed 03/19 per daughter's request-unclear what patient wants. Case management looking at discharge options in/near [place], declined by multiple facilities. Sandra sleeping; Felicia uncertain if any interest in pursuing Dobbhoff-again advised unlikely patient can discharge to a facility with the Dobbhoff and reminded did not tolerate attempted NG placement. Trial CPAP with inspiratory pressure [address] of BiPAP yesterday afternoon well tolerated. Afrin initiated for epistaxis if needed; Thorazine when necessary for hiccups. Prior small bowel perforation appears to walled off and acute inflammatory changes have subsided-antibiotics discontinued 03/16 and monitoring off them, no leukocytosis, stable overall. Continue to hold warfarin due to limited po intake and terminal illness. INR slightly higher today compared to 3 days ago, last dose warfarin was 03/16 Discussed with case management, daughter, and nursing. Hospital Course Summary Disclaimer: The visit summary below is not to be considered part of the above Progress Note. Hospital Course: 03/11/17-admission 1. stage IV non-small cell lung cancer, concern with metastases that may be causing partial small bowel obstruction 2. severe protein calorie malnutrition related to above, with odynophagia 3. bronchitis with possible sepsis 4. Anemia 5. History of supraventricular tachycardia for which I think he is on Coumadin , but unclear at this time 6. Severe pain related to above. Patient's functional status appears to be incompatible with further chemotherapy at this point. Based on data currently available hospice seems appropriate. He is not ready to hear or consider this and my understanding is this has been perhaps presented to him by his oncologist as well. He has family are asking about a possible feeding tube, again not sure that this is a good idea but may or may not be a possibility. Not certainly the case with his INR 5. No recent imaging has been obtained to stage his intra-abdominal pathology that we would need to do this. I'm concerned as noted about possible small bowel obstruction. He also states he has not had a bowel movement and 1/2-2 weeks. I 've ordered a suppository and enemas to be available. For now we'll do IV fluids and IV pain medicine, and ask our day hospitalist to review the treatment options. We could consider to have his care return to [place], but clearly the family and the care team were not on the same page with what is happened here. Addendum- Attempting to obtain records from [facility] regarding what was actively being treated during recent hospitalization. Daughter reports that he may have been treated for an abdominal abscess but he was also told that he did not have an abdominal abscess. Antibiotics were initiated empirically overnight for possible bronchitis and will be continued pending record review. Will additionally need to discuss patient's status with his usual managing oncologist and if appropriate consult oncology here. This has been discussed with the patient and his daughter. At present continue hydration, pain medications, and antiemetics in addition to IV antibiotics. NG tube placement was attempted overnight to initiate nutritional supplementation however could not be passed due to development of epistaxis and anatomy of the patient's neck. Feeding tube can be readdressed although I'm not sure if there will be a good option for this patient due to widely metastatic cancer. Dobbhoff can be attempted under fluoroscopy guidance following further correction of INR. Patient has declined fentanyl patch for basal pain control. Roxanol will be initiated to offer alternative to IV narcotic. Initiate Pepcid 20 mg IV every 12 hours with plans to convert to oral administration if able to do so. Suppositories/enemas prn for constipation. I spoke with the hospitalist who is on at [facility] today but unfortunately they were unfamiliar with the patient and can offer no additional insight into patient's recent treatment. 03/12/17 Marked decompensation overnight requiring transfer to the ICU and ventilatory assistance with BiPAP to maintain oxygenation. Developments discussed with the patient's oncologist this morning-he strongly recommended DO NOT RESUSCITATE and indicated that although additional chemotherapy has been offered to the patient the patient was advised that there was little chance that this would offer any meaningful response. He was fully supportive of hospice but indicated he's been unable to bring patient/family to the point of recognizing the advanced state of his disease. Records obtained from [facility] indicating 40% increase in tumor bulk between CT 02/23/17 and 03/07/17; additionally CT on 03/07 revealed tumor invasion of the small bowel with perforation and peritonitis. While hospitalized in [place] the patient was being treated with Cipro or Levaquin and metronidazole for peritonitis. He was seen by surgical consult who advised family and patient that tumor bulk precluded surgical intervention and recommended hospice care. Patient's daughter Libby was contacted by phone-developments overnight and results of recent CT were discussed with her. Additionally I advised her of Dr. Salinas's recommendation for DO NOT RESUSCITATE. She plans to travel from [place] to [place] in 2 days and hopes to delay patient's until that time. She is aware the patient is dying and a little can be done to alter that outcome. She is contemplating CODE STATUS but was not ready to change status at time of our conversation earlier today. At present patient does not have an acute abdomen and may have walled off the bowel perforation previously identified. Antibiotics were expanded with addition of metronidazole based on [place] records. Diuresis continued for respiratory distress. Vitamin K given for coagulopathy earlier today. Family aware prognosis is poor. 03/13/17 Remains BiPAP dependent, currently with FiO2 50%. Continue diuresis and supportive care. DPOA due to arrive overnight-she is aware of severity of patient's illness and terminal nature of both acute and chronic diseases. INR stabilized after vitamin K yesterday, due to history of multiple PEs 1 mg warfarin given today. May require Lovenox pending family decision making. Suspect bowel perforation has walled off, continue antibiotics. 03/14/17 More encephalopathic than prior days-check ABG in a.m., may represent progression of disease. High flow oxygen at 15 L, recommend. Stool rest with BiPAP. Continue diuresis and supportive care. Lengthy discussion with both daughters (Libby and Sandra) both are aware of severity of patient's illness and terminal nature of his disease but report he has consistently refused DO NOT RESUSCITATE and they do not feel they should alter his decision despite worsening disease/encephalopathy. INR stabilized after vitamin K 2 days ago, warfarin resumed yesterday, 2 mg given today. 03/15/17 More encephalopathic than prior days-ABG with CO2 of 45-slightly elevated from 4 days earlier but not enough to account for lethargy demonstrated. Likely narcotic induced. High flow oxygen at 15 L, recommend.periods of rest with BiPAP. Continue diuresis and supportive care. Family committed to full code. Coagulopathy reversed with vitamin K on 03/12, warfarin resumed 03/13, 4 mg given today. Suspect bowel perforation has walled off, continue antibiotics-Levaquin/ metronidazole. Anticipate repeating CT abdomen/pelvis [address] identifying perforation at [place] on 03/07 Advised family Dobbhoff cannot be placed while on high flow oxygen and PEG tube/ surgically placed G-tube not an option with recent bowel perforation. Additionally advised family that Dobbhoff not an option outside the hospital or at a nursing facility. Continue potassium replacement, hypotonic fluids being administered due to hypernatremia. Decrease rate of diuresis given clinical improvement. Progressive anemia, reassess in a.m.-will likely need transfusion in the next day or 2. Nystatin suspension for thrush. Transfer out of ICU. 03/16/17 21:23 Patient continues to speak only with his daughters but they are interpreting his statements this afternoon as intent to discontinue active therapy. At present they're tearful and struggling with his decision but both agree he should be converted to DO NOT RESUSCITATE. At present they are unable to discontinue fluids and accordingly I've continued Lasix. Comfort care order written; I advised them that social work will see them tomorrow to discuss options of hospice consult, intermediate transfer, or return to hospice house in [place]. Prior small bowel perforation appears to vault off and acute inflammatory changes have subsided-antibiotics discontinued. Given decision to focus on comfort warfarin will be discontinued. Provided there is no change in focus of care overnight I've recommended the daughters that fluids and other [id number] medications be discontinued tomorrow and I strongly recommended that they consult a hospice service to assist in patient management. 03/17/17 10:54 Patient continues to speak only with his daughters; yesterday they interpreted his wishes as stopping aggressive treatment and moving to a comfort care approach; this was done overnight. This morning they no longer feel that way and want to continue full care. He remains DO NOT RESUSCITATE. Will resume fluids per their request but decrease to 50 cc/hour and continue lasix today to achieve some balance. Social work did visit with them this morning as planned; currently the plan is to continue full care through the weekend and look toward facility DC in [place] on Sunday. Will continue to discuss goals of care. Prior small bowel perforation appears to vault off and acute inflammatory changes have subsided-antibiotics discontinued 03/16 and will monitor off of them. Continue to hold warfarin today but will check CBC, INR, renal panel in AM for surveillance and then discuss further. Will hold on planned hospice consult acutely and continue to discuss plans of care. 03/18/17 13:37 Patient continues to speak only with his daughters; on 03/16 they interpreted his wishes as stopping aggressive treatment and moving to a comfort care approach; this was done overnight on Sunday. In the AM on 03/17 they no longer felt that way and wanted to continue full care. --> Hospice consult cancelled, in discussion with CM will plan for facility DC to [place] tomorrow for ongoing care He remains DO NOT RESUSCITATE. Fluids resumed per daughters' request on 03/17 but more edematous today, labs stable, no indication for further IVF and held this afternoon. Social work did visit with them 03/17 as planned; will reevaluate in AM regarding DC planning. Prior small bowel perforation appears to vault off and acute inflammatory changes have subsided-antibiotics discontinued 03/16 and monitoring off them, no leukocytosis, stable overall. Continue to hold warfarin due to limited po intake and terminal illness. 03/19/17 Daughters of requested full code and resumption of low-volume IV fluids due to decreased urine output. Discharge planning underway-limited capacity available in [place] at present. 03/20/17 Case management looking at discharge options in [place], declined by multiple facilities. Trial CPAP with inspiratory pressure [address] BiPAP per daughter's request -discussed with RT. 03/21/17 Tolerated CPAP yesterday afternoon, on nasal cannula currently. Afrin when necessary for epistaxis (secondary to nasal suctioning), Thorazine when necessary for hiccups. Continue supportive measures, efforts underway to identify discharge facility.
[2017-03-22] MEDS: MORPHINE SULFATE 10mg/0.5ml ORAL LIQ SL PRN ×3 (05:53→21:05)
[2017-03-22] MEDS: NYSTATIN 500,000 units/5 ml ORAL LIQUID PO SCH ×7 (09:43→21:43)
[2017-03-22] MEDS: BISACODYL 10 MG SUPPOSITORY RECTALLY SCH (09:43)
[2017-03-22] MEDS: PredniSONE 10 MG TABLET PO SCH ×2 (09:43→10:14)
--- NOTE | 2017-03-22 12:39 | Progress Note ---
- Date 03/22/17 Subjective: Patient will not open his eyes and speak to me. Family in room sleeping, will intermittently open eyes, but won't talk to me either. The RN notes that he complains of right arm pain and would like an ultrasound. Objective Vital signs: Temperature 96 F L 03/22/17 09:54 Pulse Rate 91 03/22/17 09:54 Respiratory Rate 14 03/22/17 09:54 Blood Pressure 124/78 03/22/17 09:54 Pulse Oximetry 100 03/22/17 09:54 Rhythm: Normal Sinus Rhythm Height/Weight/BMI: Height 5 ft 11 in Weight 57.5 kg Body Mass Index 20.7 - Constitutional Present: no acute distress Comments: sleeping - Routine Respiratory Exam Present: CTA bilaterally - Routine Cardiovascular Exam Present: RRR - Routine Abdominal Exam Present: soft, non tender - Routine Skin Exam Comments: no new rashes - Routine Neurological Exam sleeping and will not open eyes or cooperate with a neuro exam - Routine Psychiatric Exam Comments: uncooperative Results - Labs CBC & Chem 7: 03/18/17 04:20 03/21/17 04:28 Microbiology Results: Microbiology 03/11/17 01:34 Peripheral/Iv Start Blood Culture - Final No Growth After 5 Days 03/11/17 01:35 Peripheral/Iv Start Blood Culture - Final No Growth After 5 Days 03/11/17 03:33 Sputum, Expectorated Sputum Culture - Final No Growth After 2 Days Assessment and Plan (1) Metastatic lung cancer (metastasis from lung to other site) Problem details: sternum, lymph nodes, right pelvis, right adrenal gland, brain , mediastinum, right lung Current visit: Yes Status: Acute (2) Dehydration Problem details: POA Current visit: Yes Status: Acute (3) Non-small cell carcinoma of left lung, stage 4 Current visit: Yes Status: Acute (4) Acute respiratory failure with hypoxia Current visit: Yes Status: Acute Assessment and Plan: Impression: Stage IV non-small cell lung cancer, extensive metastatic disease-rapidly expanding Acute hypoxic respiratory failure/pulmonary edema Intractable abdominal pain Small bowel perforation with peritonitis-identified 03/07/17; no evidence of ongoing peritonitis on repeat CT 03/16 Hypokalemia-03/13/17, resolved Hypernatremia-03/15/17, resolved Thrush-03/15/17 Dehydration, improved with supportive care Nausea/vomiting Malnutrition, severe protein calorie Weight loss Dysphagia/odynophagia Coagulopathy due to warfarin (last dose warfarin 03/06 and INR 8 on 03/07 by daughter's history) Microcytic anemia Hx p-afib/SVT Constipation Depression History of PE; warfarin now held due to poor nutrition, labile INR, terminal status Plan: Patient continues to speak only with his daughters; full code resumed 03/19 per daughter's request-unclear what patient wants. Case management looking at discharge options in/near [place], declined by multiple facilities. Family or patient will not wake up long enought to speak with me on my 3 visits into the room so far today. Trial CPAP with inspiratory pressure [address] BiPAP well tolerated the day before yesterday Afrin initiated for epistaxis if needed; Thorazine when necessary for hiccups. Prior small bowel perforation appears to walled off and acute inflammatory changes have subsided-antibiotics discontinued 03/16 and monitoring off them, no leukocytosis, stable overall. Continue to hold warfarin due to limited po intake and terminal illness. INR slightly higher today compared to 3 days ago, last dose warfarin was 03/16 Discussed with case management - they recommend palliative care consult and spoke of Ethics committee. After discussion with Dr. Vila, I opted to try palliative care discussion again prior to any involvement from ethics committee in hopes that we can become clearer on the family and patient's goals. Will doppler right arm per patient request. Hospital Course Summary Disclaimer: The visit summary below is not to be considered part of the above Progress Note. Hospital Course: 03/11/17-admission 1. stage IV non-small cell lung cancer, concern with metastases that may be causing partial small bowel obstruction 2. severe protein calorie malnutrition related to above, with odynophagia 3. bronchitis with possible sepsis 4. Anemia 5. History of supraventricular tachycardia for which I think he is on Coumadin , but unclear at this time 6. Severe pain related to above. Patient's functional status appears to be incompatible with further chemotherapy at this point. Based on data currently available hospice seems appropriate. He is not ready to hear or consider this and my understanding is this has been perhaps presented to him by his oncologist as well. He has family are asking about a possible feeding tube, again not sure that this is a good idea but may or may not be a possibility. Not certainly the case with his INR 5. No recent imaging has been obtained to stage his intra-abdominal pathology that we would need to do this. I'm concerned as noted about possible small bowel obstruction. He also states he has not had a bowel movement and 1/2-2 weeks. I 've ordered a suppository and enemas to be available. For now we'll do IV fluids and IV pain medicine, and ask our day hospitalist to review the treatment options. We could consider to have his care return to [place], but clearly the family and the care team were not on the same page with what is happened here. Addendum- Attempting to obtain records from [facility] regarding what was actively being treated during recent hospitalization. Daughter reports that he may have been treated for an abdominal abscess but he was also told that he did not have an abdominal abscess. Antibiotics were initiated empirically overnight for possible bronchitis and will be continued pending record review. Will additionally need to discuss patient's status with his usual managing oncologist and if appropriate consult oncology here. This has been discussed with the patient and his daughter. At present continue hydration, pain medications, and antiemetics in addition to IV antibiotics. NG tube placement was attempted overnight to initiate nutritional supplementation however could not be passed due to development of epistaxis and anatomy of the patient's neck. Feeding tube can be readdressed although I'm not sure if there will be a good option for this patient due to widely metastatic cancer. Dobbhoff can be attempted under fluoroscopy guidance following further correction of INR. Patient has declined fentanyl patch for basal pain control. Roxanol will be initiated to offer alternative to IV narcotic. Initiate Pepcid 20 mg IV every 12 hours with plans to convert to oral administration if able to do so. Suppositories/enemas prn for constipation. I spoke with the hospitalist who is on at [facility] today but unfortunately they were unfamiliar with the patient and can offer no additional insight into patient's recent treatment. 03/12/17 Marked decompensation overnight requiring transfer to the ICU and ventilatory assistance with BiPAP to maintain oxygenation. Developments discussed with the patient's oncologist this morning-he strongly recommended DO NOT RESUSCITATE and indicated that although additional chemotherapy has been offered to the patient the patient was advised that there was little chance that this would offer any meaningful response. He was fully supportive of hospice but indicated he's been unable to bring patient/family to the point of recognizing the advanced state of his disease. Records obtained from [facility] indicating 40% increase in tumor bulk between CT 02/23/17 and 03/07/17; additionally CT on 03/07 revealed tumor invasion of the small bowel with perforation and peritonitis. While hospitalized in [place] the patient was being treated with Cipro or Levaquin and metronidazole for peritonitis. He was seen by surgical consult who advised family and patient that tumor bulk precluded surgical intervention and recommended hospice care. Patient's daughter Libby was contacted by phone-developments overnight and results of recent CT were discussed with her. Additionally I advised her of Dr. Salinas's recommendation for DO NOT RESUSCITATE. She plans to travel from [place] to [place] in 2 days and hopes to delay patient's until that time. She is aware the patient is dying and a little can be done to alter that outcome. She is contemplating CODE STATUS but was not ready to change status at time of our conversation earlier today. At present patient does not have an acute abdomen and may have walled off the bowel perforation previously identified. Antibiotics were expanded with addition of metronidazole based on [place] records. Diuresis continued for respiratory distress. Vitamin K given for coagulopathy earlier today. Family aware prognosis is poor. 03/13/17 Remains BiPAP dependent, currently with FiO2 50%. Continue diuresis and supportive care. DPOA due to arrive overnight-she is aware of severity of patient's illness and terminal nature of both acute and chronic diseases. INR stabilized after vitamin K yesterday, due to history of multiple PEs 1 mg warfarin given today. May require Lovenox pending family decision making. Suspect bowel perforation has walled off, continue antibiotics. 03/14/17 More encephalopathic than prior days-check ABG in a.m., may represent progression of disease. High flow oxygen at 15 L, recommend. Stool rest with BiPAP. Continue diuresis and supportive care. Lengthy discussion with both daughters (Libby and Sandra) both are aware of severity of patient's illness and terminal nature of his disease but report he has consistently refused DO NOT RESUSCITATE and they do not feel they should alter his decision despite worsening disease/encephalopathy. INR stabilized after vitamin K 2 days ago, warfarin resumed yesterday, 2 mg given today. 03/15/17 More encephalopathic than prior days-ABG with CO2 of 45-slightly elevated from 4 days earlier but not enough to account for lethargy demonstrated. Likely narcotic induced. High flow oxygen at 15 L, recommend.periods of rest with BiPAP. Continue diuresis and supportive care. Family committed to full code. Coagulopathy reversed with vitamin K on 03/12, warfarin resumed 03/13, 4 mg given today. Suspect bowel perforation has walled off, continue antibiotics-Levaquin/ metronidazole. Anticipate repeating CT abdomen/pelvis [address] identifying perforation at [place] on 03/07 Advised family Dobbhoff cannot be placed while on high flow oxygen and PEG tube/ surgically placed G-tube not an option with recent bowel perforation. Additionally advised family that Dobbhoff not an option outside the hospital or at a nursing facility. Continue potassium replacement, hypotonic fluids being administered due to hypernatremia. Decrease rate of diuresis given clinical improvement. Progressive anemia, reassess in a.m.-will likely need transfusion in the next day or 2. Nystatin suspension for thrush. Transfer out of ICU. 03/16/17 21:23 Patient continues to speak only with his daughters but they are interpreting his statements this afternoon as intent to discontinue active therapy. At present they're tearful and struggling with his decision but both agree he should be converted to DO NOT RESUSCITATE. At present they are unable to discontinue fluids and accordingly I've continued Lasix. Comfort care order written; I advised them that social work will see them tomorrow to discuss options of hospice consult, penitentiary transfer, or return to hospice house in [place]. Prior small bowel perforation appears to vault off and acute inflammatory changes have subsided-antibiotics discontinued. Given decision to focus on comfort warfarin will be discontinued. Provided there is no change in focus of care overnight I've recommended the daughters that fluids and other [id number]-hlchy medications be discontinued tomorrow and I strongly recommended that they consult a hospice service to assist in patient management. 03/17/17 10:54 Patient continues to speak only with his daughters; yesterday they interpreted his wishes as stopping aggressive treatment and moving to a comfort care approach; this was done overnight. This morning they no longer feel that way and want to continue full care. He remains DO NOT RESUSCITATE. Will resume fluids per their request but decrease to 50 cc/hour and continue lasix today to achieve some balance. Social work did visit with them this morning as planned; currently the plan is to continue full care through the weekend and look toward facility DC in [place] on Sunday. Will continue to discuss goals of care. Prior small bowel perforation appears to vault off and acute inflammatory changes have subsided-antibiotics discontinued 03/16 and will monitor off of them. Continue to hold warfarin today but will check CBC, INR, renal panel in AM for surveillance and then discuss further. Will hold on planned hospice consult acutely and continue to discuss plans of care. 03/18/17 13:37 Patient continues to speak only with his daughters; on 03/16 they interpreted his wishes as stopping aggressive treatment and moving to a comfort care approach; this was done overnight on Sunday. In the AM on 03/17 they no longer felt that way and wanted to continue full care. --> Hospice consult cancelled, in discussion with CM will plan for facility DC to [place] tomorrow for ongoing care He remains DO NOT RESUSCITATE. Fluids resumed per daughters' request on 03/17 but more edematous today, labs stable, no indication for further IVF and held this afternoon. Social work did visit with them 03/17 as planned; will reevaluate in AM regarding DC planning. Prior small bowel perforation appears to vault off and acute inflammatory changes have subsided-antibiotics discontinued 03/16 and monitoring off them, no leukocytosis, stable overall. Continue to hold warfarin due to limited po intake and terminal illness. 03/19/17 Daughters of requested full code and resumption of low-volume IV fluids due to decreased urine output. Discharge planning underway-limited capacity available in [place] at present. 03/20/17 Case management looking at discharge options in [place], declined by multiple facilities. Trial CPAP with inspiratory pressure [address] BiPAP per daughter's request -discussed with RT. 03/21/17 Tolerated CPAP yesterday afternoon, on nasal cannula currently. Afrin when necessary for epistaxis (secondary to nasal suctioning), Thorazine when necessary for hiccups. Continue supportive measures, efforts underway to identify discharge facility. 03/22/17 12:44 Family or patient will not wake up long enough to speak with me on my 3 visits into the room so far today. Continue to hold warfarin due to limited po intake and terminal illness. INR slightly higher today compared to 3 days ago, last dose warfarin was 03/16 Discussed with case management - they recommend palliative care consult and spoke of Ethics committee. After discussion with Dr. Vila, I opted to try palliative care discussion again prior to any involvement from ethics committee in hopes that we can become clearer on the family and patient's goals. Will doppler right arm per patient request.
--- NOTE | 2017-03-22 15:15 | Ultrasound Report ---
Indication: Evaluate for DVT PROCEDURE: US venous doppler UE RT: Encounter: Initial Comparison: None Technique: Color Doppler duplex and grayscale sonographic imaging of the right upper extremity was performed. FINDINGS: There is extensive deep vein upper thrombosis extending from the subclavian vein to the proximal brachial vein. This is mostly occlusive. 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 Impression: 1. 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 2. 4 cm right neck mass. Findings were discussed with the ordering physician at 1510 on March 22, 2017. .
[2017-03-22] MEDS: ENOXAPARIN 60 MG/0.6 ML INJECTION SQ SCH (17:00)
[2017-03-22] MEDS: POTASSIUM CHLORIDE INJ 20 MEQ in D5NS 1,000 ML IV SCH (18:05)
--- NOTE | 2017-03-22 20:21 | Consult Note ---
- Consultation Consultation Note - PALLIATIVE MEDICINE 03/22/17, 20:00 RE: Zhou Lux 60 Reason for Consult: Goals of Care Discussion Brief History: Mr Joaquin is battling very aggressive and widely metastatic non-small cell lung cancer - stage IV at diagnosis >2 years ago, has been near and given "days " prognosis on multiple occasions and has battled thru, with a more dramatic and sustained decline over recent weeks. History obtained from his daughter and medical record. DPOA daughter Felicia from [place] is in the midst of preparing for a college final that includes a construction project (must build a "tiny home") and was up all night for that and is "wiped out" and sister cannot currently wake her, and her father is now just resting after being up for quite awhile today and she requests I not wake him, stating he would decline to speak anyway and ask her to communicate . She notes that he's a little more alert since lowering the pain meds a bit and has also been able to eat a little bit and is moving past his previous respiratory crisis at admission. He presented here in a respiratory crisis - daughter feels that the deep suction and NG tube decompression (despite being traumatic due to his radiation esophageal issues and thrush) has really helped him palliatively to stabilize and bounce back. Metastatic [place] summary: - Persistent sternal met. Cervical met (now with acute findings of DVT subclavian into brachial vein) that shrunk with radiation but has been growing again (4cm) - Newer finding of aggressively growing met in his abdomen (mesenteric area) that has at some point caused a microperforation - however seems to be probably walled off, and he's had a few BM's recently as well, though partial SBO is still a concern. Non-operative due to location and extent of his cachexia and prognosis / surgical risk, etc. Family is unhappy about how this was evaluated and managed (but mostly by the sound of it how it was messaged and communicated) in an outside hospital. Was referred to hospice and felt that his wishes / goals of care were not being respected and so they dismissed themselves from that and presented to [facility] with the ongoing abdominal and new respiratory issues. He's improved from a respiratory standpoint and again the abdominal lesion / pertionitis may be in a bit of a stasis as well. - Adrenal mass - Brain lesion - ? R pelvis lesion - Multiple lymphatic masses - Bilat lung masses and malignant sympathetic pleural effusion - AGGRESSIVE weight loss/ Cachexia presentation over past couple of months. Albumin around 2.5. Hypokalemia at admission - improved parenterally with replacement Pancytopenia , Hgb around 8 presently. Not neutropenic at this time. Daughter (local with him in [facility], SHAHID is out of state from [place]) is noting to me that he is currently only communicating with her as she can interpret his whispers better and it hurts him to speak. Also he is socially phobic / antisocial and she feels this is part of his withdrawal from being as communicative with medical staff as well (but also not really speaking to SHAHID either - asking this daughter to listen and translate). His daughter was forthcoming in terms of speaking to me at length about her Dad from a Goals of Care standpoint and with some time for her to vent her situation and story which did eventually elicit some usable information about Zhou's Goals of Care. 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 She also states this explains alot of the singular minded goals that may not seem realistic to the docs but are realistic to him and his personality. The biggest issue being his granddaughters visiting (one of which is autistic) and both have begged grandpa to live until [place] to watch them get their gifts. This has basically in daughter's opinion become his singular goal in life, and this explains the rescinded decision of the DNR back to full code. Translated, this is his way of saying do everything possible to get me to [place]. Daughter realizes ( and notes that SHAHID does as well) that this may not be possible and that doing CPR is essentially unrealistic. However they are comforted by having learned that once he loses decisional capacity they will have the decision making responsibility of whether to continue the Full Code request vs. DNR and/or can "call it" if CPR does not immediately bring him back. (They of course do not have alot of insight about the concept of medical futility which has come into play with regards to discussion of possible Ethics consultation here @ Hospital) . His daughter's translation is that the plan would be to return to DNR status at [place] as his primary remaining life Goal would be achieved at that point. An important bit of information is to learn that his mother, faced with terminal cancer, did not of cancer but rather of hypokalemia cardiac complications and this seems to indicate the reason he's been fixated on the IVF and K replacement. Daughter recognizes that it isn't making a significant impact on his short or correction prognosis (other than to normalize the potassium which has been accomplished). She does feel that a placating / palliative strategy of letting him have some access to the possibility of IVF at discharge would be a reasonable accommodation to overcome this concern of his. However he's now also starting to take a little more orally so this can be another mechanism for that. She is encouraged by him being able to do comfort feeds. I reinforced that artificial feeding at this point is both unwise and technically unsound as it would likely exacerbate the current stalemate of his abdominal mass / perforation and again is not at this point going to make a significant impact on his short or correction prognosis (in fact is likely to add to his disease burden - his weight loss is as much cachexic tumor burden as it is malnutrition). I believe that his cachectic burden of this tumor is rather extreme, supported by rapid mass expansions and rapid weight loss in a very short period of time. Steroids are in place. In terms of discharge planning goals of care, they are apparently in communication with a LTCF in [facility] and have a friend at the facility and are hopeful that a bed availability is forthcoming and they would prefer that as the discharge disposition, with the ability to have IVF not be taken off the table (even if it's for placebo effect for patient's peace of mind given his mother's mechanism of ). And with comfort feedings, reasonable pain and symptom control. And NOT hospice, at least not until [place], after which she feels her dad will be amenable to "whatever" is recommended. This also gets him closer to home for this daughter who discloses that she has a child in trouble at school (secondary to this family stress) and has just learned two young cousins in [place] have "just been told they have tumors". They are minimally communicative with hospital staff except for a few of the caregivers they've bonded with a little better. There is clearly still some significant bitterness about the experience at the [facility] and then the [facility] to. 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 Prognosis is extremely poor, he is effectively not a medical candidate for anything "meaningful" - IE disease sparing or altering - (including artificial feeding in my opinion which has a much higher burden than benefit in this scenario and is not likely technically feasible anyway given his abdominal mass and possible SBO, microperforation, etc.). Daughters seem aware of his prognosis, however his focus on the goal of living til [place] for his Granddaughters has become central to his focus and has caused him to become a little less realistic about this rapidly escalating disease trajectory in terms of his treatment expectations. It's not likely that he will move from this as it has become a focus represented by living for his granddaughters and thus is emotionally (not logically) motivated. This includes his rescindence of the DNR which I think is effectively him wanting to ensure "everything possible is done" to help him get to [place]. However, palliative non-aggressive care is frankly the most advisable course of treatment to consider in that regard to provide maximal time, which of course will be counterintuitive to him since he' s bounced back so many times with sheer will. More aggressive care could easily backfire and hasten his decline. I did try to reinforce this to his daughter and she seemed to agree, but also is saying that realistically he is not going to be able or willing to acknowledge that at this time. Again, he' s "a cranky stubborn old biker erich" and is not likely to change his personality , which is actually I think a pretty enlightened opinion in my experience. She does confirm that he's agreeable to the plan of discharging to LTCF "just not hospice". Plan They are hoping for discharge placement to be available [facility] in [facility] in [facility], and the main hope is that he can be in a Medicaid bed there and that the facility will be willing to at least not shut the door on the possiblity of palliative IVF if needed for his peace of mind (I'd posit that offering a willingness to check on his potassium from time to time might also work to placate him), and allow the full code status with the understanding of his "realistically unrealistic" short term Goal of making it til [place] ( they are contemplating moving up [place] in this regard if necessary to help him, which I think is advisable) and they state they now realize they can re- think his code status in real time if he declines rapidly or "if CPR isn't working". while of course not very medically realistic, at least it follows a line of thinking that can be interpreted as an attempt to help him with this final Goal of Care for his remaining days and not as a denial of his medical prognosis reality. The daughter seemed realistic about the discussion to avoid the artificial feeding idea as not advised due to his disease burden, anatomy, INR, and of course due to his GI mass / obstruction / perforation etc. And because artificial feeding in this scenario does little if anything to slow the cachexic progression and is shown statistically to not lengthen life in this type of patient but increase risk of disease burden (particularly aspiration or in this case peritonitis). I left my phone # for DPOA to contact after she awakens if she / patient has further questions about the disease state / disease burden and prognostic recommendations that we can direct using a palliative centric strategy. Frankly while not completely realistic, the above Goal of Care conversation does outline what may hopefully at least be an executable strategy for this patient. It is unfortunate that they are shutting the door on hospice support , but given recent events and his stubbornness as a badge of pride personality, I'm not sure it's realistic to expect that decision to change while he's still of decisional capacity. Thank you for the opportunity to interview this family and hopefully contribute to the communication process and Goal of Care discussion in this unfortunate situation. Hugo Miguel MD Hospice & Pallaitive Medicine [phone] desk line [phone] cell
[2017-03-23] MEDS ORDERED: FALL RISK - PHARMACY CONSULT XX ONE (04:13)
--- NOTE | 2017-03-23 08:36 | Ultrasound Report ---
Indication: Known DVT, evaluate for additional DVT PROCEDURE: US venous doppler LE RT: Encounter: Initial Comparison: None Technique: Color Doppler duplex and grayscale sonographic imaging of the right lower extremity was performed. Findings: There is no evidence for acute deep venous thrombosis in the right thigh. Specifically, serial graded compression was performed from the inguinal ligament to the popliteal bifurcation, on the right thigh, demonstrating appropriate compressibility of the deep venous system. In addition, color and pulsed Doppler demonstrate appropriate spontaneous flow, variation with respiration, and augmentation with calf compression. At the ankle, normal flow is identified in the posterior tibial veins; these vessels are also normal in caliber. Impression: No evidence of acute DVT in the right lower limb. .
[2017-03-23] MEDS: BISACODYL 10 MG SUPPOSITORY RECTALLY SCH (09:52)
[2017-03-23] MEDS: PredniSONE 10 MG TABLET PO SCH (09:52)
[2017-03-23] MEDS: NYSTATIN 500,000 units/5 ml ORAL LIQUID PO SCH ×3 (09:52→18:38)
[2017-03-23] MEDS: ENOXAPARIN 60 MG/0.6 ML INJECTION SQ SCH (09:52)
[2017-03-23] MEDS: MORPHINE SULFATE 10mg/0.5ml ORAL LIQ SL PRN ×2 (10:57→19:16)
--- NOTE | 2017-03-23 15:49 | Progress Note ---
- Date 03/23/17 Subjective: Patient does not answer quetions. Daughter concerned about right foot drop and drooling out of the right side of his mouth, she is worried he's had a stroke. She had a long conversation with Dr. Miguel yesterday, as well as myself prior , and noted that his primary goal is to live until [place]. This is based around his granddaughter asking him to be at [facility]. His wishes for his care are to be able to take food, to get IVF if needed, and KCl replacement. He wants to be a DNR but the family states they will rescind this "if CPR isn't working". Today he is more somnolent than yesterday, concerning the daughter. Objective Vital signs: Temperature 97.2 F 03/23/17 08:17 Pulse Rate 105 H 03/23/17 08:17 Respiratory Rate 12 03/23/17 08:17 Blood Pressure 105/71 03/23/17 08:17 Pulse Oximetry 98 03/23/17 08:17 Rhythm: Normal Sinus Rhythm Height/Weight/BMI: Height 5 ft 11 in Weight 59.1 kg Body Mass Index 20.7 - Constitutional Present: somnolent - Routine Respiratory Exam Present: CTA bilaterally - Routine Cardiovascular Exam Present: RRR - Routine Abdominal Exam Present: soft, non distended, non tender - Routine Extremities Exam Present: no edema - Routine Skin Exam Comments: no new rash - Routine Neurological Exam won't follow commands, right foot drop noted, but hard to assess ability to move the foot. neuro exam not able to be done as a whole due to lack of cooperation. - Routine Psychiatric Exam Present: unable to assess Results - Labs CBC & Chem 7: 03/23/17 04:21 03/23/17 04:21 Microbiology Results: Microbiology 03/11/17 01:34 Peripheral/Iv Start Blood Culture - Final No Growth After 5 Days 03/11/17 01:35 Peripheral/Iv Start Blood Culture - Final No Growth After 5 Days 03/11/17 03:33 Sputum, Expectorated Sputum Culture - Final No Growth After 2 Days - ABG Interpretation ABG results: 03/23/17 11:24 ABG pH 7.460 H ABG pCO2 43 ABG pO2 135 H ABG HCO3 31 H ABG Total CO2 31.9 H ABG O2 Saturation 99.0 H ABG Base Excess 6.1 H Assessment and Plan (1) Metastatic lung cancer (metastasis from lung to other site) Problem details: sternum, lymph nodes, right pelvis, right adrenal gland, brain , mediastinum, right lung Current visit: Yes Status: Acute (2) Dehydration Problem details: POA Current visit: Yes Status: Acute (3) Non-small cell carcinoma of left lung, stage 4 Current visit: Yes Status: Acute (4) Acute respiratory failure with hypoxia Current visit: Yes Status: Acute Assessment and Plan: Impression: Stage IV non-small cell lung cancer, extensive metastatic disease-rapidly expanding Acute hypoxic respiratory failure/pulmonary edema Intractable abdominal pain Small bowel perforation with peritonitis-identified 03/07/17; no evidence of ongoing peritonitis on repeat CT 03/16 Right UE DVT Right sided weakness - per daughter Hypokalemia-03/13/17, resolved Hypernatremia-03/15/17, resolved Thrush-03/15/17 Dehydration, improved with supportive care Nausea/vomiting Malnutrition, severe protein calorie Weight loss Dysphagia/odynophagia Coagulopathy due to warfarin (last dose warfarin 03/06 and INR 8 on 03/07 by daughter's history) Microcytic anemia Hx p-afib/SVT Constipation Depression History of PE; warfarin now held due to poor nutrition, labile INR, terminal status Plan: Patient continues to speak only with his daughters; full code resumed 03/19 per patient request to live until [place]. Case management looking at discharge options in/near [place], declined by multiple facilities. Prior small bowel perforation appears to walled off and acute inflammatory changes have subsided-antibiotics discontinued 03/16 and monitoring off them, no leukocytosis, stable overall. Started full dose lovenox in light of right arm DVT, INR had been climbing due to malnutrition. Monitor for bleeding. Doppler of right leg negative. Daughter agrees that MRI of brain would be futile. Dr. Miguel consult appreciated - we have more clear goals, albeit somewhat unreasonable goals. They would like a facility in which he can be a full code, have IVF, and potassium replacement until [facility]. The daughter seems aware that he may decline prior to [place]. We suggested they move [facility] with the kids to an earlier time. They note that after [facility], he/they would be more agreeable to the recommended course of care. Hospital Course Summary Disclaimer: The visit summary below is not to be considered part of the above Progress Note. Hospital Course: 03/11/17-admission 1. stage IV non-small cell lung cancer, concern with metastases that may be causing partial small bowel obstruction 2. severe protein calorie malnutrition related to above, with odynophagia 3. bronchitis with possible sepsis 4. Anemia 5. History of supraventricular tachycardia for which I think he is on Coumadin , but unclear at this time 6. Severe pain related to above. Patient's functional status appears to be incompatible with further chemotherapy at this point. Based on data currently available hospice seems appropriate. He is not ready to hear or consider this and my understanding is this has been perhaps presented to him by his oncologist as well. He has family are asking about a possible feeding tube, again not sure that this is a good idea but may or may not be a possibility. Not certainly the case with his INR 5. No recent imaging has been obtained to stage his intra-abdominal pathology that we would need to do this. I'm concerned as noted about possible small bowel obstruction. He also states he has not had a bowel movement and 1/2-2 weeks. I 've ordered a suppository and enemas to be available. For now we'll do IV fluids and IV pain medicine, and ask our day hospitalist to review the treatment options. We could consider to have his care return to [place], but clearly the family and the care team were not on the same page with what is happened here. Addendum- Attempting to obtain records from [facility] regarding what was actively being treated during recent hospitalization. Daughter reports that he may have been treated for an abdominal abscess but he was also told that he did not have an abdominal abscess. Antibiotics were initiated empirically overnight for possible bronchitis and will be continued pending record review. Will additionally need to discuss patient's status with his usual managing oncologist and if appropriate consult oncology here. This has been discussed with the patient and his daughter. At present continue hydration, pain medications, and antiemetics in addition to IV antibiotics. NG tube placement was attempted overnight to initiate nutritional supplementation however could not be passed due to development of epistaxis and anatomy of the patient's neck. Feeding tube can be readdressed although I'm not sure if there will be a good option for this patient due to widely metastatic cancer. Kaylenhoff can be attempted under fluoroscopy guidance following further correction of INR. Patient has declined fentanyl patch for basal pain control. Roxanol will be initiated to offer alternative to IV narcotic. Initiate Pepcid 20 mg IV every 12 hours with plans to convert to oral administration if able to do so. Suppositories/enemas prn for constipation. I spoke with the hospitalist who is on at [facility] today but unfortunately they were unfamiliar with the patient and can offer no additional insight into patient's recent treatment. 03/12/17 Marked decompensation overnight requiring transfer to the ICU and ventilatory assistance with BiPAP to maintain oxygenation. Developments discussed with the patient's oncologist this morning-he strongly recommended DO NOT RESUSCITATE and indicated that although additional chemotherapy has been offered to the patient the patient was advised that there was little chance that this would offer any meaningful response. He was fully supportive of hospice but indicated he's been unable to bring patient/family to the point of recognizing the advanced state of his disease. Records obtained from [facility] indicating 40% increase in tumor bulk between CT 02/23/17 and 03/07/17; additionally CT on 03/07 revealed tumor invasion of the small bowel with perforation and peritonitis. While hospitalized in [place] the patient was being treated with Cipro or Levaquin and metronidazole for peritonitis. He was seen by surgical consult who advised family and patient that tumor bulk precluded surgical intervention and recommended hospice care. Patient's daughter Felicia/SHAHID was contacted by phone-developments overnight and results of recent CT were discussed with her. Additionally I advised her of Dr. Salinas's recommendation for DO NOT RESUSCITATE. She plans to travel from [place] to [place] in 2 days and hopes to delay patient's until that time. She is aware the patient is dying and a little can be done to alter that outcome. She is contemplating CODE STATUS but was not ready to change status at time of our conversation earlier today. At present patient does not have an acute abdomen and may have walled off the bowel perforation previously identified. Antibiotics were expanded with addition of metronidazole based on [place] records. Diuresis continued for respiratory distress. Vitamin K given for coagulopathy earlier today. Family aware prognosis is poor. 03/13/17 Remains BiPAP dependent, currently with FiO2 50%. Continue diuresis and supportive care. DPOA due to arrive overnight-she is aware of severity of patient's illness and terminal nature of both acute and chronic diseases. INR stabilized after vitamin K yesterday, due to history of multiple PEs 1 mg warfarin given today. May require Lovenox pending family decision making. Suspect bowel perforation has walled off, continue antibiotics. 03/14/17 More encephalopathic than prior days-check ABG in a.m., may represent progression of disease. High flow oxygen at 15 L, recommend. Stool rest with BiPAP. Continue diuresis and supportive care. Lengthy discussion with both daughters (Felicia/DPOA and Sandra) both are aware of severity of patient's illness and terminal nature of his disease but report he has consistently refused DO NOT RESUSCITATE and they do not feel they should alter his decision despite worsening disease/encephalopathy. INR stabilized after vitamin K 2 days ago, warfarin resumed yesterday, 2 mg given today. 03/15/17 More encephalopathic than prior days-ABG with CO2 of 45-slightly elevated from 4 days earlier but not enough to account for lethargy demonstrated. Likely narcotic induced. High flow oxygen at 15 L, recommend.periods of rest with BiPAP. Continue diuresis and supportive care. Family committed to full code. Coagulopathy reversed with vitamin K on 03/12, warfarin resumed 03/13, 4 mg given today. Suspect bowel perforation has walled off, continue antibiotics-Levaquin/ metronidazole. Anticipate repeating CT abdomen/pelvis [address] identifying perforation at [place] on 03/07 Advised family Dobbhoff cannot be placed while on high flow oxygen and PEG tube/ surgically placed G-tube not an option with recent bowel perforation. Additionally advised family that Dobbhoff not an option outside the hospital or at a nursing facility. Continue potassium replacement, hypotonic fluids being administered due to hypernatremia. Decrease rate of diuresis given clinical improvement. Progressive anemia, reassess in a.m.-will likely need transfusion in the next day or 2. Nystatin suspension for thrush. Transfer out of ICU. 03/16/17 21:23 Patient continues to speak only with his daughters but they are interpreting his statements this afternoon as intent to discontinue active therapy. At present they're tearful and struggling with his decision but both agree he should be converted to DO NOT RESUSCITATE. At present they are unable to discontinue fluids and accordingly I've continued Lasix. Comfort care order written; I advised them that social work will see them tomorrow to discuss options of hospice consult, correction transfer, or return to hospice house in [place]. Prior small bowel perforation appears to vault off and acute inflammatory changes have subsided-antibiotics discontinued. Given decision to focus on comfort warfarin will be discontinued. Provided there is no change in focus of care overnight I've recommended the daughters that fluids and other [id number] medications be discontinued tomorrow and I strongly recommended that they consult a hospice service to assist in patient management. 03/17/17 10:54 Patient continues to speak only with his daughters; yesterday they interpreted his wishes as stopping aggressive treatment and moving to a comfort care approach; this was done overnight. This morning they no longer feel that way and want to continue full care. He remains DO NOT RESUSCITATE. Will resume fluids per their request but decrease to 50 cc/hour and continue lasix today to achieve some balance. Social work did visit with them this morning as planned; currently the plan is to continue full care through the weekend and look toward facility DC in [place] on Sunday. Will continue to discuss goals of care. Prior small bowel perforation appears to vault off and acute inflammatory changes have subsided-antibiotics discontinued 03/16 and will monitor off of them. Continue to hold warfarin today but will check CBC, INR, renal panel in AM for surveillance and then discuss further. Will hold on planned hospice consult acutely and continue to discuss plans of care. 03/18/17 13:37 Patient continues to speak only with his daughters; on 03/16 they interpreted his wishes as stopping aggressive treatment and moving to a comfort care approach; this was done overnight on Sunday. In the AM on 03/17 they no longer felt that way and wanted to continue full care. --> Hospice consult cancelled, in discussion with CM will plan for facility DC to [place] tomorrow for ongoing care He remains DO NOT RESUSCITATE. Fluids resumed per daughters' request on 03/17 but more edematous today, labs stable, no indication for further IVF and held this afternoon. Social work did visit with them 03/17 as planned; will reevaluate in AM regarding DC planning. Prior small bowel perforation appears to vault off and acute inflammatory changes have subsided-antibiotics discontinued 03/16 and monitoring off them, no leukocytosis, stable overall. Continue to hold warfarin due to limited po intake and terminal illness. 03/19/17 Daughters of requested full code and resumption of low-volume IV fluids due to decreased urine output. Discharge planning underway-limited capacity available in [place] at present. 03/20/17 Case management looking at discharge options in [place], declined by multiple facilities. Trial CPAP with inspiratory pressure [address] BiPAP per daughter's request -discussed with RT. 03/21/17 Tolerated CPAP yesterday afternoon, on nasal cannula currently. Afrin when necessary for epistaxis (secondary to nasal suctioning), Thorazine when necessary for hiccups. Continue supportive measures, efforts underway to identify discharge facility. 03/22/17 12:44 Family or patient will not wake up long enough to speak with me on my 3 visits into the room so far today. Continue to hold warfarin due to limited po intake and terminal illness. INR slightly higher today compared to 3 days ago, last dose warfarin was 03/16 Discussed with case management - they recommend palliative care consult and spoke of Ethics committee. After discussion with Dr. Vila, I opted to try palliative care discussion again prior to any involvement from ethics committee in hopes that we can become clearer on the family and patient's goals. Will doppler right arm per patient request. 03/23/17 15:56 Patient continues to speak only with his daughters; full code resumed 03/19 per patient request to live until [place]. Case management looking at discharge options in/near [place], declined by multiple facilities. Prior small bowel perforation appears to walled off and acute inflammatory changes have subsided-antibiotics discontinued 03/16 and monitoring off them, no leukocytosis, stable overall. Started full dose lovenox in light of right arm DVT, INR had been climbing due to malnutrition. Monitor for bleeding. Doppler of right leg negative. Daughter agrees that MRI of brain would be futile. Dr. Miguel consult appreciated - we have more clear goals, albeit somewhat unreasonable goals. They would like a facility in which he can be a full code, have IVF, and potassium replacement until [place]. The daughter seems aware that he may decline prior to [facility]. We suggested they move [facility] with the kids to an earlier time. They note that after [facility], he/they would be more agreeable to the recommended course of care.
[2017-03-23] MEDS: POTASSIUM CHLORIDE INJ 20 MEQ in D5NS 1,000 ML IV SCH (20:09)
[2017-03-23] MEDS: SALINE FLUSH 10ml SYRINGE IVF PRN (20:18)
[2017-03-24] MEDS ORDERED: ALTEPLASE (Cathflo*) 2mg INJECTION IV ONE (04:15)
[2017-03-24] MEDS: ALTEPLASE (Cathflo*) 2mg INJECTION IV ONE ×3 (04:32→04:42)
[2017-03-24] MEDS: MORPHINE SULFATE 10mg/0.5ml ORAL LIQ SL PRN ×3 (05:20→22:10)
[2017-03-24] MEDS: NYSTATIN 500,000 units/5 ml ORAL LIQUID PO SCH ×5 (05:48→21:31)
[2017-03-24] MEDS: BISACODYL 10 MG SUPPOSITORY RECTALLY SCH (09:23)
[2017-03-24] MEDS: PredniSONE 10 MG TABLET PO SCH (09:23)
[2017-03-24] MEDS ORDERED: WARFARIN - PHARMACY CONSULT MC ONE (09:45)
--- NOTE | 2017-03-24 09:49 | Pharmacy Consult ---
Pharmacy Consult-Warfarin - Laboratory Information 03/12/17 03/13/17 03/14/17 03:56 03:49 04:33 INR 6.88 H* 1.22 H 1.28 H 03/15/17 03/16/17 03/18/17 04:34 04:24 11:36 INR 1.41 H 1.79 H 2.10 H 03/21/17 03/24/17 04:28 06:15 INR 2.79 H 1.78 H - Consult Information We will re-initiate warfarin today with a 2mg dose at noon today. INR goal 2 - 3 and will monitor and dose accordingly. Thanks
[2017-03-24] MEDS ORDERED: WARFARIN 2 MG TABLET PO SCH (12:00)
--- NOTE | 2017-03-24 16:52 | Progress Note ---
- Date 03/24/17 Subjective: Mr. Lux was resting comfortably when seen initially; Sandra was sleeping. The patient did not speak but nursing indicated no further hematuria, minimal pain medication today, and stable oxygenation on 4 or 5 L O2. Minimal oral intake. I was subsequently notified of tachycardia with heart rate up to 136. Sandra was awake at that time and reported that oxygen level drops when the patient sleeps because he breathes through his mouth, poor oral intake yesterday after drinking several glasses of water and part of a shake one or 2 days prior to that. She additionally describes numbness in the right face and arm. She reports he's been less verbal in recent days. Objective Vital signs: Temperature 97.4 F 03/24/17 15:48 Pulse Rate 120 H 03/24/17 15:48 Respiratory Rate 24 03/24/17 15:48 Blood Pressure 106/78 03/24/17 15:48 Pulse Oximetry 90 -4 L 03/24/17 15:48 I/O 1364/1075 Weight 56.2 kg, down 2 kg over the past couple of days; down significantly from admission NAD, conjugate gaze Adenopathy right neck with no nodes 3-4 cm (increased compared to admission), small nodes palpable right axilla Right anterior lung clear, left lungs slightly coarse Regular rhythm, S1-S2 Abdomen soft upper abdomen, diminished bowel sounds, mid/lower abdomen firm +1 edema right upper extremity, no lower extremity edema Moving left upper extremity, no noted spontaneous movement right upper extremity or lower extremities No attempted speech but regards examiner visually Rhythm: Sinus Tachycardia Height/Weight/BMI: Height 1.8 m Weight 56.2 kg Body Mass Index 20.7 Results - Labs CBC & Chem 7: 03/24/17 06:15 03/24/17 06:15 Labs: INR 1.78 Microbiology Results: Microbiology 03/11/17 01:34 Peripheral/Iv Start Blood Culture - Final No Growth After 5 Days 03/11/17 01:35 Peripheral/Iv Start Blood Culture - Final No Growth After 5 Days 03/11/17 03:33 Sputum, Expectorated Sputum Culture - Final No Growth After 2 Days - ABG Interpretation ABG results: 03/23/17 11:24 ABG pH 7.460 H ABG pCO2 43 ABG pO2 135 H ABG HCO3 31 H ABG Total CO2 31.9 H ABG O2 Saturation 99.0 H ABG Base Excess 6.1 H - ECG Data Tracing #1 I reviewed this ECG and interpreted as documented below: (sinus tachycardia) - Imaging and Cardiology Chest x-ray Status: image reviewed by me (left hilar fullness, possible streakiness/ infiltrate lower medial right lower lobe; vascular markings improved from prior films.) Assessment and Plan (1) Non-small cell carcinoma of left lung, stage 4 Current visit: Yes Status: Acute (2) Dehydration Problem details: POA Current visit: Yes Status: Acute (3) Metastatic lung cancer (metastasis from lung to other site) Problem details: sternum, lymph nodes, right pelvis, right adrenal gland, brain , mediastinum, right lung Current visit: Yes Status: Acute (4) Acute respiratory failure with hypoxia Current visit: Yes Status: Acute Assessment and Plan: Impression: Stage IV non-small cell lung cancer, extensive metastatic disease-rapidly expanding Acute hypoxic respiratory failure/pulmonary edema Intractable abdominal pain Small bowel perforation with peritonitis-identified 03/07/17; no evidence of ongoing peritonitis on repeat CT 03/16 Right UE DVT Right sided weakness - per daughter Hypokalemia-03/13/17, resolved Hypernatremia-03/15/17, resolved Thrush-03/15/17 Dehydration, improved with supportive care Nausea/vomiting-resolved Malnutrition, severe protein calorie Weight loss Dysphagia/odynophagia Coagulopathy due to warfarin (last dose warfarin 03/06 and INR 8 on 03/07 by daughter's history) Microcytic anemia Hx p-afib/SVT Constipation Depression History of PE; warfarin Plan: Recurrent tachycardia today without clear symptoms, urine output down and hemoglobin up-fluid bolus given, continue to monitor. Renal function has not shown evidence of deterioration although protein masses poor. Fluid balance has been relatively even recent days but weight continues to decline. Continue IV fluids at 75 mL per hour (increased from 40 mL per hour) after fluid bolus. Has unfortunately developed pulmonary edema with fluid resuscitation previously. Patient speak only with his daughters and is less verbal with them now than in the past; full code resumed 03/19 per patient request to live until [place]. Sandra reports right sided numbness involving face, arm, leg. Increased adenopathy in the right neck with no nodes that Sandra reports were not there previously-nodes are hard and fixed. 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 CT head with contrast planned tomorrow after additional hydration. INR subtherapeutic today, new DVT identified right upper extremity 2 days ago and likely result of venous occlusion secondary adenopathy. Warfarin dose given today; resume Lovenox pending therapeutic INR. Case management looking at discharge options in/near [place], declined by multiple facilities. Abdomen remains benign. Prior small bowel perforation appears to walled off and acute inflammatory changes have subsided-antibiotics discontinued 03/16 and monitoring off them, no leukocytosis, stable overall. Dr. Miguel consult appreciated - we have more clear goals, albeit somewhat unreasonable goals. They would like a facility in which he can be a full code, have IVF, and potassium replacement until [place]. The daughter seems aware that he may decline prior to [place]. Again discussed consideration of early [place] for the patient's/grandchildren as I see evidence of worsening disease. Family reported that after [place], he/they would be more agreeable to the recommended course of care. Lengthy discussion with Sandra regarding management options at present. Proceed with CT in the event steroids may be beneficial. Discussed with nursing multiply. DVT Prophylaxis: Lovenox, Coumadin Resuscitation Status: Full Code - Time spent with patient Time with patient PN: other (45 min) Coordination of Care: >50% of visit spent providing counseling/coordination of care Hospital Course Summary Disclaimer: The visit summary below is not to be considered part of the above Progress Note. Hospital Course: 03/11/17-admission 1. stage IV non-small cell lung cancer, concern with metastases that may be causing partial small bowel obstruction 2. severe protein calorie malnutrition related to above, with odynophagia 3. bronchitis with possible sepsis 4. Anemia 5. History of supraventricular tachycardia for which I think he is on Coumadin , but unclear at this time 6. Severe pain related to above. Patient's functional status appears to be incompatible with further chemotherapy at this point. Based on data currently available hospice seems appropriate. He is not ready to hear or consider this and my understanding is this has been perhaps presented to him by his oncologist as well. He has family are asking about a possible feeding tube, again not sure that this is a good idea but may or may not be a possibility. Not certainly the case with his INR 5. No recent imaging has been obtained to stage his intra-abdominal pathology that we would need to do this. I'm concerned as noted about possible small bowel obstruction. He also states he has not had a bowel movement and 1/2-2 weeks. I 've ordered a suppository and enemas to be available. For now we'll do IV fluids and IV pain medicine, and ask our day hospitalist to review the treatment options. We could consider to have his care return to [place], but clearly the family and the care team were not on the same page with what is happened here. Addendum- Attempting to obtain records from [facility] regarding what was actively being treated during recent hospitalization. Daughter reports that he may have been treated for an abdominal abscess but he was also told that he did not have an abdominal abscess. Antibiotics were initiated empirically overnight for possible bronchitis and will be continued pending record review. Will additionally need to discuss patient's status with his usual managing oncologist and if appropriate consult oncology here. This has been discussed with the patient and his daughter. At present continue hydration, pain medications, and antiemetics in addition to IV antibiotics. NG tube placement was attempted overnight to initiate nutritional supplementation however could not be passed due to development of epistaxis and anatomy of the patient's neck. Feeding tube can be readdressed although I'm not sure if there will be a good option for this patient due to widely metastatic cancer. Dobbhoff can be attempted under fluoroscopy guidance following further correction of INR. Patient has declined fentanyl patch for basal pain control. Roxanol will be initiated to offer alternative to IV narcotic. Initiate Pepcid 20 mg IV every 12 hours with plans to convert to oral administration if able to do so. Suppositories/enemas prn for constipation. I spoke with the hospitalist who is on at [facility] today but unfortunately they were unfamiliar with the patient and can offer no additional insight into patient's recent treatment. 03/12/17 Marked decompensation overnight requiring transfer to the ICU and ventilatory assistance with BiPAP to maintain oxygenation. Developments discussed with the patient's oncologist this morning-he strongly recommended DO NOT RESUSCITATE and indicated that although additional chemotherapy has been offered to the patient the patient was advised that there was little chance that this would offer any meaningful response. He was fully supportive of hospice but indicated he's been unable to bring patient/family to the point of recognizing the advanced state of his disease. Records obtained from [facility] indicating 40% increase in tumor bulk between CT 02/23/17 and 03/07/17; additionally CT on 03/07 revealed tumor invasion of the small bowel with perforation and peritonitis. While hospitalized in [place] the patient was being treated with Cipro or Levaquin and metronidazole for peritonitis. He was seen by surgical consult who advised family and patient that tumor bulk precluded surgical intervention and recommended hospice care. Patient's daughter Libby was contacted by phone-developments overnight and results of recent CT were discussed with her. Additionally I advised her of Dr. Salinas's recommendation for DO NOT RESUSCITATE. She plans to travel from [place] to [place] in 2 days and hopes to delay patient's until that time. She is aware the patient is dying and a little can be done to alter that outcome. She is contemplating CODE STATUS but was not ready to change status at time of our conversation earlier today. At present patient does not have an acute abdomen and may have walled off the bowel perforation previously identified. Antibiotics were expanded with addition of metronidazole based on [place] records. Diuresis continued for respiratory distress. Vitamin K given for coagulopathy earlier today. Family aware prognosis is poor. 03/13/17 Remains BiPAP dependent, currently with FiO2 50%. Continue diuresis and supportive care. DPOA due to arrive overnight-she is aware of severity of patient's illness and terminal nature of both acute and chronic diseases. INR stabilized after vitamin K yesterday, due to history of multiple PEs 1 mg warfarin given today. May require Lovenox pending family decision making. Suspect bowel perforation has walled off, continue antibiotics. 03/14/17 More encephalopathic than prior days-check ABG in a.m., may represent progression of disease. High flow oxygen at 15 L, recommend. Stool rest with BiPAP. Continue diuresis and supportive care. Lengthy discussion with both daughters (Libby and Sandra) both are aware of severity of patient's illness and terminal nature of his disease but report he has consistently refused DO NOT RESUSCITATE and they do not feel they should alter his decision despite worsening disease/encephalopathy. INR stabilized after vitamin K 2 days ago, warfarin resumed yesterday, 2 mg given today. 03/15/17 More encephalopathic than prior days-ABG with CO2 of 45-slightly elevated from 4 days earlier but not enough to account for lethargy demonstrated. Likely narcotic induced. High flow oxygen at 15 L, recommend.periods of rest with BiPAP. Continue diuresis and supportive care. Family committed to full code. Coagulopathy reversed with vitamin K on 03/12, warfarin resumed 03/13, 4 mg given today. Suspect bowel perforation has walled off, continue antibiotics-Levaquin/ metronidazole. Anticipate repeating CT abdomen/pelvis [address] identifying perforation at [place] on 03/07 Advised family Dobbhoff cannot be placed while on high flow oxygen and PEG tube/ surgically placed G-tube not an option with recent bowel perforation. Additionally advised family that Dobbhoff not an option outside the hospital or at a nursing facility. Continue potassium replacement, hypotonic fluids being administered due to hypernatremia. Decrease rate of diuresis given clinical improvement. Progressive anemia, reassess in a.m.-will likely need transfusion in the next day or 2. Nystatin suspension for thrush. Transfer out of ICU. 03/16/17 21:23 Patient continues to speak only with his daughters but they are interpreting his statements this afternoon as intent to discontinue active therapy. At present they're tearful and struggling with his decision but both agree he should be converted to DO NOT RESUSCITATE. At present they are unable to discontinue fluids and accordingly I've continued Lasix. Comfort care order written; I advised them that social work will see them tomorrow to discuss options of hospice consult, long term transfer, or return to hospice house in [place]. Prior small bowel perforation appears to vault off and acute inflammatory changes have subsided-antibiotics discontinued. Given decision to focus on comfort warfarin will be discontinued. Provided there is no change in focus of care overnight I've recommended the daughters that fluids and other [id number] medications be discontinued tomorrow and I strongly recommended that they consult a hospice service to assist in patient management. 03/17/17 10:54 Patient continues to speak only with his daughters; yesterday they interpreted his wishes as stopping aggressive treatment and moving to a comfort care approach; this was done overnight. This morning they no longer feel that way and want to continue full care. He remains DO NOT RESUSCITATE. Will resume fluids per their request but decrease to 50 cc/hour and continue lasix today to achieve some balance. Social work did visit with them this morning as planned; currently the plan is to continue full care through the weekend and look toward facility DC in [place] on Sunday. Will continue to discuss goals of care. Prior small bowel perforation appears to vault off and acute inflammatory changes have subsided-antibiotics discontinued 03/16 and will monitor off of them. Continue to hold warfarin today but will check CBC, INR, renal panel in AM for surveillance and then discuss further. Will hold on planned hospice consult acutely and continue to discuss plans of care. 03/18/17 13:37 Patient continues to speak only with his daughters; on 03/16 they interpreted his wishes as stopping aggressive treatment and moving to a comfort care approach; this was done overnight on Sunday. In the AM on 03/17 they no longer felt that way and wanted to continue full care. --> Hospice consult cancelled, in discussion with CM will plan for facility DC to [place] tomorrow for ongoing care He remains DO NOT RESUSCITATE. Fluids resumed per daughters' request on 03/17 but more edematous today, labs stable, no indication for further IVF and held this afternoon. Social work did visit with them 03/17 as planned; will reevaluate in AM regarding DC planning. Prior small bowel perforation appears to vault off and acute inflammatory changes have subsided-antibiotics discontinued 03/16 and monitoring off them, no leukocytosis, stable overall. Continue to hold warfarin due to limited po intake and terminal illness. 03/19/17 Daughters of requested full code and resumption of low-volume IV fluids due to decreased urine output. Discharge planning underway-limited capacity available in [place] at present. 03/20/17 Case management looking at discharge options in [place], declined by multiple facilities. Trial CPAP with inspiratory pressure [address] BiPAP per daughter's request -discussed with RT. 03/21/17 Tolerated CPAP yesterday afternoon, on nasal cannula currently. Afrin when necessary for epistaxis (secondary to nasal suctioning), Thorazine when necessary for hiccups. Continue supportive measures, efforts underway to identify discharge facility. 03/22/17 12:44 Family or patient will not wake up long enough to speak with me on my 3 visits into the room so far today. Continue to hold warfarin due to limited po intake and terminal illness. INR slightly higher today compared to 3 days ago, last dose warfarin was 03/16 Discussed with case management - they recommend palliative care consult and spoke of Ethics committee. After discussion with Dr. Vila, I opted to try palliative care discussion again prior to any involvement from ethics committee in hopes that we can become clearer on the family and patient's goals. Will doppler right arm per patient request. 03/23/17 15:56 Patient continues to speak only with his daughters; full code resumed 03/19 per patient request to live until [place]. Case management looking at discharge options in/near [place], declined by multiple facilities. Prior small bowel perforation appears to walled off and acute inflammatory changes have subsided-antibiotics discontinued 03/16 and monitoring off them, no leukocytosis, stable overall. Started full dose lovenox in light of right arm DVT, INR had been climbing due to malnutrition. Monitor for bleeding. Doppler of right leg negative. Daughter agrees that MRI of brain would be futile. Dr. Miguel consult appreciated - we have more clear goals, albeit somewhat unreasonable goals. They would like a facility in which he can be a full code, have IVF, and potassium replacement until Karin. The daughter seems aware that he may decline prior to [place]. We suggested they move [place] with the kids to an earlier time. They note that after Karin, he/they would be more agreeable to the recommended course of care. 03/24/17 Recurrent tachycardia today without clear symptoms, urine output down and hemoglobin up-fluid bolus given, continue to monitor. Renal function has not shown evidence of deterioration although protein masses poor. Fluid balance has been relatively even recent days but weight continues to decline. Continue IV fluids at 75 mL per hour (increased from 40 mL per hour) after fluid bolus. Has unfortunately developed pulmonary edema with fluid resuscitation previously. Patient speak only with his daughters and is less verbal with them now than in the past; full code resumed 03/19 per patient request to live until [place]. Sandra reports right sided numbness involving face, arm, leg. Increased adenopathy in the right neck with no nodes that Sandra reports were not there previously-nodes are hard and fixed. 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 CT head with contrast planned tomorrow after additional hydration. INR subtherapeutic today, new DVT identified right upper extremity 2 days ago and likely result of venous occlusion secondary adenopathy. Warfarin dose given today; resume Lovenox pending therapeutic INR.
[2017-03-24] MEDS: POTASSIUM CHLORIDE INJ 20 MEQ in D5NS 1,000 ML IV SCH (17:16)
[2017-03-24] MEDS: SALINE FLUSH 10ml SYRINGE IVF PRN ×3 (17:16→21:31)
[2017-03-24] MEDS: ENOXAPARIN 60 MG/0.6 ML INJECTION SQ SCH (21:30)
[2017-03-25] MEDS: MORPHINE SULFATE 10mg/0.5ml ORAL LIQ SL PRN ×4 (02:07→23:50)
[2017-03-25] MEDS: POTASSIUM CHLORIDE INJ 20 MEQ in D5NS 1,000 ML IV SCH ×2 (06:51→18:50)
--- NOTE | 2017-03-25 07:37 | Pharmacy Consult ---
Pharmacy Consult-Warfarin - Laboratory Information 03/12/17 03/13/17 03/14/17 03:56 03:49 04:33 INR 6.88 H* 1.22 H 1.28 H 03/15/17 03/16/17 03/18/17 04:34 04:24 11:36 INR 1.41 H 1.79 H 2.10 H 03/21/17 03/24/17 03/25/17 04:28 06:15 04:05 INR 2.79 H 1.78 H 1.60 H - Consult Information We will give 3mg of warfarin today at 1200. Goal INR 2-3. Thanks
[2017-03-25] MEDS ORDERED: FLUCONAZOLE 100 MG TABLET PO SCH (09:00)
--- NOTE | 2017-03-25 09:27 | XRay Report ---
Indication: TACHY, LOW URINE OUTPUT, ELEVATED TEMP PROCEDURE: XR chest 1V: Encounter: Initial Comparison: March 15, 2017 Findings: Left PICC line in place with the tip projecting over the mid SVC. Left hilar density or mass. Minimal residual airspace disease in the medial left lower lobe. No pneumothorax. Heart size is normal. Pulmonary vascularity is grossly normal. Impression: Slightly improved left basilar infiltrate. Left hilar possible mass. There is a preliminary report by [facility]. .
[2017-03-25] MEDS: ENOXAPARIN 60 MG/0.6 ML INJECTION SQ SCH (11:58)
[2017-03-25] MEDS ORDERED: WARFARIN 3 MG TABLET PO SCH (12:00)
[2017-03-25] MEDS ORDERED: DEXAMETHASONE 20 MG/5 ML INJECTION IVP SCH (12:00)
--- NOTE | 2017-03-25 12:27 | Progress Note ---
Progress Note: Head CT reviewed by myself/discussed with on-call radiology-large area in the left parietal region with intraparenchymal blood and edema; 11 mm [id number] shift and compression of the ventricles. Suspect underlying tumor with bleed. Discussed with Sandra and Felicia-advised them edema may decrease with steroids ( Decadron had been ordered). Recommend that they coordinate [place] with the grandchildren as soon as possible/today. Felicia asked that I not start Decadron due to concern that if the patient becomes more awake he will experience more pain. She needs to speak with Sandra further before CODE STATUS is readdressed. Warfarin/Lovenox discontinued-has not received dose of Lovenox today. They are aware that the DVT in the upper arm cannot be treated and that he is at risk for additional thrombotic events due to immobility/past history/ malignancy.
[2017-03-25] MEDS: NYSTATIN 500,000 units/5 ml ORAL LIQUID PO SCH ×4 (13:08→20:30)
[2017-03-25] MEDS: BISACODYL 10 MG SUPPOSITORY RECTALLY SCH (13:08)
[2017-03-25] MEDS: PredniSONE 10 MG TABLET PO SCH (13:09)
--- NOTE | 2017-03-25 15:51 | Progress Note ---
- Date 03/25/17 Subjective: Mr. Lux was seen with Sadnra at the bedside. She reports that he was more restless overnight and required Ativan at some point. CPAP was initiated this morning after deep suctioning by RT clear to large amount of thick sputum from the airway; daughter reports it was blood-tinged. He has been minimally responsive this morning and has not spoken to family. He's not moving the right arm or leg and has not had ice chips or any other oral intake today. Objective Vital signs: Temperature 96.5 F L 03/25/17 15:34 Pulse Rate 127 H 03/25/17 15:34 Respiratory Rate 24 03/25/17 15:34 Blood Pressure 94/65 03/25/17 15:34 Pulse Oximetry 98 -6 L 03/25/17 15:34 Resting comfortably, opened eyes briefly during exam Pupils round, right eye with slight lateral deviation and right pupil is about 0.5 mm larger than the left; both react sluggishly to light Facial structures grossly symmetric Respirations nonlabored with decreased airflow, breath sounds are coarse bilateral lung rouse, tachypneic Regular rhythm, S1-S2, tachycardic Abdomen soft in the upper abdomen, firm lower, bowel sounds present; no guarding but palpation of lower abdomen causes patient to open eyes and draw up left leg Right upper extremity flaccid, decreased tone right lower extremity, right great toe downgoing to plantar stimulation Height/Weight/BMI: Height 1.8 m Weight 56.2 kg Body Mass Index 20.7 Results - Labs CBC & Chem 7: 03/25/17 04:05 03/25/17 04:05 Microbiology Results: Microbiology 03/11/17 01:34 Peripheral/Iv Start Blood Culture - Final No Growth After 5 Days 03/11/17 01:35 Peripheral/Iv Start Blood Culture - Final No Growth After 5 Days 03/11/17 03:33 Sputum, Expectorated Sputum Culture - Final No Growth After 2 Days - Imaging and Cardiology CT scan - head Status: image reviewed by me (mass with hemorrhage left temporoparietal region involving thalamus and left basal ganglia; large amount of vasogenic edema with 11 mm left to right shift including effacement/attenuation of the third ventricle and mild dilatation of the right lateral ventricle suggesting obstructive hydrocephalus) Assessment and Plan (1) Non-small cell carcinoma of left lung, stage 4 Current visit: Yes Status: Acute (2) Dehydration Problem details: POA Current visit: Yes Status: Acute (3) Metastatic lung cancer (metastasis from lung to other site) Problem details: sternum, lymph nodes, right pelvis, right adrenal gland, brain , mediastinum, right lung Current visit: Yes Status: Acute (4) Acute respiratory failure with hypoxia Current visit: Yes Status: Acute Assessment and Plan: Impression: Stage IV non-small cell lung cancer, extensive metastatic disease-rapidly expanding Intracerebral mass/met with hemorrhage, vasogenic edema, and left to right shift Acute hypoxic respiratory failure/pulmonary edema Intractable abdominal pain Small bowel perforation with peritonitis-identified 03/07/17; no evidence of ongoing peritonitis on repeat CT 03/16 Right UE DVT Right sided weakness - per daughter Hypokalemia-03/13/17, resolved Hypernatremia-03/15/17, resolved Thrush-03/15/17 Dehydration, improved with supportive care Nausea/vomiting-resolved Malnutrition, severe protein calorie Weight loss Dysphagia/odynophagia Coagulopathy due to warfarin (last dose warfarin 03/06 and INR 8 on 03/07 by daughter's history) Microcytic anemia Hx p-afib/SVT Constipation Depression History of PE; warfarin Plan: CT confirms suspicion of some increased TIMBER REPAIRER disease with hemorrhagic conversion , large amount of edema and shift with compression of the ventricles. As noted previously this is been discussed with the patient's daughters and the critical nature of this finding reviewed with them. As of my last discussion with them they remain undecided about changing CODE STATUS but have elected not to pursue acute interventions with steroids or surgical consultation regarding the hemorrhage. They are aware that this is a neurosurgical emergency but that the underlying malignancy and its progressive course make the patient a poor surgical candidate and that I do not recommend consideration of neurosurgical evaluation. In light of edema rate of fluids have been decreased. I strongly recommended purely palliative course. Oral medications discontinued except nystatin to coat the patient's tongue and Roxanol. Daughters declined IV Decadron for edema. Imaging suggests high risk of herniation in the near future. Family is aware that I cannot treat thromboembolic disease and TIMBER REPAIRER hemorrhage jointly; all anticoagulants have been discontinued. Continue supportive care the patient/family. Anticipate palliative care in the near future. Patient is critically ill, do not anticipate survival over the next 24-48 hours. 45 minutes spent at the bedside/unit in discussion with family. CT head reviewed with patient's daughters. DVT Prophylaxis: SCD's - Time spent with patient Time with patient PN: other (45 min) Hospital Course Summary Disclaimer: The visit summary below is not to be considered part of the above Progress Note. Hospital Course: 03/11/17-admission 1. stage IV non-small cell lung cancer, concern with metastases that may be causing partial small bowel obstruction 2. severe protein calorie malnutrition related to above, with odynophagia 3. bronchitis with possible sepsis 4. Anemia 5. History of supraventricular tachycardia for which I think he is on Coumadin , but unclear at this time 6. Severe pain related to above. Patient's functional status appears to be incompatible with further chemotherapy at this point. Based on data currently available hospice seems appropriate. He is not ready to hear or consider this and my understanding is this has been perhaps presented to him by his oncologist as well. He has family are asking about a possible feeding tube, again not sure that this is a good idea but may or may not be a possibility. Not certainly the case with his INR 5. No recent imaging has been obtained to stage his intra-abdominal pathology that we would need to do this. I'm concerned as noted about possible small bowel obstruction. He also states he has not had a bowel movement and 1/2-2 weeks. I 've ordered a suppository and enemas to be available. For now we'll do IV fluids and IV pain medicine, and ask our day hospitalist to review the treatment options. We could consider to have his care return to [place], but clearly the family and the care team were not on the same page with what is happened here. Addendum- Attempting to obtain records from [facility] regarding what was actively being treated during recent hospitalization. Daughter reports that he may have been treated for an abdominal abscess but he was also told that he did not have an abdominal abscess. Antibiotics were initiated empirically overnight for possible bronchitis and will be continued pending record review. Will additionally need to discuss patient's status with his usual managing oncologist and if appropriate consult oncology here. This has been discussed with the patient and his daughter. At present continue hydration, pain medications, and antiemetics in addition to IV antibiotics. NG tube placement was attempted overnight to initiate nutritional supplementation however could not be passed due to development of epistaxis and anatomy of the patient's neck. Feeding tube can be readdressed although I'm not sure if there will be a good option for this patient due to widely metastatic cancer. Dobbhoff can be attempted under fluoroscopy guidance following further correction of INR. Patient has declined fentanyl patch for basal pain control. Roxanol will be initiated to offer alternative to IV narcotic. Initiate Pepcid 20 mg IV every 12 hours with plans to convert to oral administration if able to do so. Suppositories/enemas prn for constipation. I spoke with the hospitalist who is on at [facility] today but unfortunately they were unfamiliar with the patient and can offer no additional insight into patient's recent treatment. 03/12/17 Marked decompensation overnight requiring transfer to the ICU and ventilatory assistance with BiPAP to maintain oxygenation. Developments discussed with the patient's oncologist this morning-he strongly recommended DO NOT RESUSCITATE and indicated that although additional chemotherapy has been offered to the patient the patient was advised that there was little chance that this would offer any meaningful response. He was fully supportive of hospice but indicated he's been unable to bring patient/family to the point of recognizing the advanced state of his disease. Records obtained from [facility] indicating 40% increase in tumor bulk between CT 02/23/17 and 03/07/17; additionally CT on 03/07 revealed tumor invasion of the small bowel with perforation and peritonitis. While hospitalized in [place] the patient was being treated with Cipro or Levaquin and metronidazole for peritonitis. He was seen by surgical consult who advised family and patient that tumor bulk precluded surgical intervention and recommended hospice care. Patient's daughter Libby was contacted by phone-developments overnight and results of recent CT were discussed with her. Additionally I advised her of Dr. Salinas's recommendation for DO NOT RESUSCITATE. She plans to travel from [place] to [place] in 2 days and hopes to delay patient's until that time. She is aware the patient is dying and a little can be done to alter that outcome. She is contemplating CODE STATUS but was not ready to change status at time of our conversation earlier today. At present patient does not have an acute abdomen and may have walled off the bowel perforation previously identified. Antibiotics were expanded with addition of metronidazole based on [place] records. Diuresis continued for respiratory distress. Vitamin K given for coagulopathy earlier today. Family aware prognosis is poor. 03/13/17 Remains BiPAP dependent, currently with FiO2 50%. Continue diuresis and supportive care. DPOA due to arrive overnight-she is aware of severity of patient's illness and terminal nature of both acute and chronic diseases. INR stabilized after vitamin K yesterday, due to history of multiple PEs 1 mg warfarin given today. May require Lovenox pending family decision making. Suspect bowel perforation has walled off, continue antibiotics. 03/14/17 More encephalopathic than prior days-check ABG in a.m., may represent progression of disease. High flow oxygen at 15 L, recommend. Stool rest with BiPAP. Continue diuresis and supportive care. Lengthy discussion with both daughters (Felicia/DPOA and Sandra) both are aware of severity of patient's illness and terminal nature of his disease but report he has consistently refused DO NOT RESUSCITATE and they do not feel they should alter his decision despite worsening disease/encephalopathy. INR stabilized after vitamin K 2 days ago, warfarin resumed yesterday, 2 mg given today. 03/15/17 More encephalopathic than prior days-ABG with CO2 of 45-slightly elevated from 4 days earlier but not enough to account for lethargy demonstrated. Likely narcotic induced. High flow oxygen at 15 L, recommend.periods of rest with BiPAP. Continue diuresis and supportive care. Family committed to full code. Coagulopathy reversed with vitamin K on 03/12, warfarin resumed 03/13, 4 mg given today. Suspect bowel perforation has walled off, continue antibiotics-Levaquin/ metronidazole. Anticipate repeating CT abdomen/pelvis [address] identifying perforation at [place] on 03/07 Advised family Dobbhoff cannot be placed while on high flow oxygen and PEG tube/ surgically placed G-tube not an option with recent bowel perforation. Additionally advised family that Dobbhoff not an option outside the hospital or at a nursing facility. Continue potassium replacement, hypotonic fluids being administered due to hypernatremia. Decrease rate of diuresis given clinical improvement. Progressive anemia, reassess in a.m.-will likely need transfusion in the next day or 2. Nystatin suspension for thrush. Transfer out of ICU. 03/16/17 21:23 Patient continues to speak only with his daughters but they are interpreting his statements this afternoon as intent to discontinue active therapy. At present they're tearful and struggling with his decision but both agree he should be converted to DO NOT RESUSCITATE. At present they are unable to discontinue fluids and accordingly I've continued Lasix. Comfort care order written; I advised them that social work will see them tomorrow to discuss options of hospice consult, mcc transfer, or return to hospice house in [place]. Prior small bowel perforation appears to vault off and acute inflammatory changes have subsided-antibiotics discontinued. Given decision to focus on comfort warfarin will be discontinued. Provided there is no change in focus of care overnight I've recommended the daughters that fluids and other [id number] medications be discontinued tomorrow and I strongly recommended that they consult a hospice service to assist in patient management. 03/17/17 10:54 Patient continues to speak only with his daughters; yesterday they interpreted his wishes as stopping aggressive treatment and moving to a comfort care approach; this was done overnight. This morning they no longer feel that way and want to continue full care. He remains DO NOT RESUSCITATE. Will resume fluids per their request but decrease to 50 cc/hour and continue lasix today to achieve some balance. Social work did visit with them this morning as planned; currently the plan is to continue full care through the weekend and look toward facility DC in [place] on Sunday. Will continue to discuss goals of care. Prior small bowel perforation appears to vault off and acute inflammatory changes have subsided-antibiotics discontinued 03/16 and will monitor off of them. Continue to hold warfarin today but will check CBC, INR, renal panel in AM for surveillance and then discuss further. Will hold on planned hospice consult acutely and continue to discuss plans of care. 03/18/17 13:37 Patient continues to speak only with his daughters; on 03/16 they interpreted his wishes as stopping aggressive treatment and moving to a comfort care approach; this was done overnight on Sunday. In the AM on 03/17 they no longer felt that way and wanted to continue full care. --> Hospice consult cancelled, in discussion with CM will plan for facility DC to [place] tomorrow for ongoing care He remains DO NOT RESUSCITATE. Fluids resumed per daughters' request on 03/17 but more edematous today, labs stable, no indication for further IVF and held this afternoon. Social work did visit with them 03/17 as planned; will reevaluate in AM regarding DC planning. Prior small bowel perforation appears to vault off and acute inflammatory changes have subsided-antibiotics discontinued 03/16 and monitoring off them, no leukocytosis, stable overall. Continue to hold warfarin due to limited po intake and terminal illness. 03/19/17 Daughters of requested full code and resumption of low-volume IV fluids due to decreased urine output. Discharge planning underway-limited capacity available in [place] at present. 03/20/17 Case management looking at discharge options in [place], declined by multiple facilities. Trial CPAP with inspiratory pressure [address]PAP per daughter's request -discussed with RT. 03/21/17 Tolerated CPAP yesterday afternoon, on nasal cannula currently. Afrin when necessary for epistaxis (secondary to nasal suctioning), Thorazine when necessary for hiccups. Continue supportive measures, efforts underway to identify discharge facility. 03/22/17 12:44 Family or patient will not wake up long enough to speak with me on my 3 visits into the room so far today. Continue to hold warfarin due to limited po intake and terminal illness. INR slightly higher today compared to 3 days ago, last dose warfarin was 03/16 Discussed with case management - they recommend palliative care consult and spoke of Ethics committee. After discussion with Dr. Vila, I opted to try palliative care discussion again prior to any involvement from ethics committee in hopes that we can become clearer on the family and patient's goals. Will doppler right arm per patient request. 03/23/17 15:56 Patient continues to speak only with his daughters; full code resumed 03/19 per patient request to live until [place]. Case management looking at discharge options in/near [place], declined by multiple facilities. Prior small bowel perforation appears to walled off and acute inflammatory changes have subsided-antibiotics discontinued 03/16 and monitoring off them, no leukocytosis, stable overall. Started full dose lovenox in light of right arm DVT, INR had been climbing due to malnutrition. Monitor for bleeding. Doppler of right leg negative. Daughter agrees that MRI of brain would be futile. Dr. Miguel consult appreciated - we have more clear goals, albeit somewhat unreasonable goals. They would like a facility in which he can be a full code, have IVF, and potassium replacement until [place]. The daughter seems aware that he may decline prior to [place]. We suggested they move [place] with the kids to an earlier time. They note that after [place], he/they would be more agreeable to the recommended course of care. 03/24/17 Recurrent tachycardia today without clear symptoms, urine output down and hemoglobin up-fluid bolus given, continue to monitor. Renal function has not shown evidence of deterioration although protein masses poor. Fluid balance has been relatively even recent days but weight continues to decline. Continue IV fluids at 75 mL per hour (increased from 40 mL per hour) after fluid bolus. Has unfortunately developed pulmonary edema with fluid resuscitation previously. Patient speak only with his daughters and is less verbal with them now than in the past; full code resumed 03/19 per patient request to live until [place]. Sandra reports right sided numbness involving face, arm, leg. Increased adenopathy in the right neck with no nodes that Sandra reports were not there previously-nodes are hard and fixed. Patient has known small brain metastases from the past and I'm concerned that he may have increased TIMBER REPAIRER metastatic disease as well. CT head with contrast planned tomorrow after additional hydration. INR subtherapeutic today, new DVT identified right upper extremity 2 days ago and likely result of venous occlusion secondary adenopathy. Warfarin dose given today; resume Lovenox pending therapeutic INR. 03/25/17 CT confirms suspicion of some increased TIMBER REPAIRER disease with hemorrhagic conversion , large amount of edema and shift with compression of the ventricles. As noted previously this is been discussed with the patient's daughters and the critical nature of this finding reviewed with them. As of my last discussion with them they remain undecided about changing CODE STATUS but have elected not to pursue acute interventions with steroids or surgical consultation regarding the hemorrhage. They are aware that this is a neurosurgical emergency but that the underlying malignancy and its progressive course make the patient a poor surgical candidate and that I do not recommend consideration of neurosurgical evaluation. In light of edema rate of fluids have been decreased. I strongly recommended purely palliative course. Oral medications discontinued except nystatin to coat the patient's tongue and Roxanol. Daughters declined IV Decadron for brain edema as pt has less pain now than he did previously and they are concerned that if more alert pain will return. Imaging suggests high risk of herniation in the near future. Family is aware that I cannot treat thromboembolic disease and TIMBER REPAIRER hemorrhage jointly; all anticoagulants have been discontinued. Continue supportive care the patient/family. Anticipate in the near future.
[2017-03-25] MEDS: SALINE FLUSH 10ml SYRINGE IVF PRN ×2 (20:30→23:50)
[2017-03-25 23:24] VITALS: BP 112/67; TEMP 96.1
[2017-03-25] MEDS: ONDANSETRON 4 MG/2 ML INJECTION IVP PRN (23:49)
[2017-03-26 08:21] VITALS: RESP 24
--- NOTE | 2017-03-26 10:55 | CT Scan Report ---
EXAM: CT head/brain w con HISTORY: right-sided numbness, metastatic lung cancer COMPARISON: No prior studies available for comparison. Routine CT scan is performed without intravenous contrast administration. The current CT scan was performed using radiation dose-reduction techniques. FINDINGS: The examination is limited without IV contrast and the detection of brain metastasis. There is soft tissue mass effect and acute intracranial parenchymal hemorrhage in the left temporal parietal lobe with surrounding vasogenic edema. The acute parenchymal hemorrhage measures 2.5 x 2.7 x 3.1 cm. There is associated complete effacement of the frontal and occipital horns of the left lateral ventricle and the third ventricle with [id number] midline shift estimated at 14 mm. There is associated mild dilatation of the right lateral ventricle suggesting associated obstructive hydrocephalus. This finding is most consistent with subfalcine herniation. The brainstem and posterior fossa appear intact. No extra-axial masses or fluid collections are seen. The bony calvarium appears intact showing no fractures or focal destructive lesions. There is moderate-sized air-fluid level in the right maxillary sinus and there are small air-fluid levels versus mild mucosal thickening in the left sphenoid sinus. The remaining visualized paranasal sinuses are clear as are the mastoid air cells. IMPRESSION: 1. There is soft tissue mass effect and acute intracranial hemorrhage with surrounding vasogenic edema in the left temporal parietal lobe. There is associated effacement of the frontal and occipital horns of the left lateral ventricle as well as the third ventricle and left to right midline shift estimated at 14 mm consistent with subfalcine herniation. 2. Right maxillary and left sphenoid sinusitis as described. A pulmonary report was provided by [facility] imaging services immediately following the initial review of this examination 03/25/2017 at 12:15 PM .
[2017-03-26] MEDS: NYSTATIN 500,000 units/5 ml ORAL LIQUID PO SCH ×3 (11:10→16:03)
[2017-03-26] MEDS: MORPHINE SULFATE 10mg/0.5ml ORAL LIQ SL PRN ×3 (11:10→18:23)
[2017-03-26] MEDS: BISACODYL 10 MG SUPPOSITORY RECTALLY SCH (11:11)
[2017-03-26] MEDS ORDERED: Hyoscyamine 0.125 MG SL tab SL PRN (12:38)
[2017-03-26] MEDS ORDERED: SCOPOLAMINE 1.5mg (delivers 1mg/24hrs) PATCH TD SCH (12:45)
[2017-03-26] MEDS: SALINE FLUSH 10ml SYRINGE IVF PRN ×2 (13:26→16:03)
--- NOTE | 2017-03-26 15:10 | Discharge Summary ---
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 Status: Chronic (6) Intracranial hemorrhage Status: Acute (7) Vasogenic brain edema Status: Acute (8) Deep vein thrombosis (DVT) of right upper extremity Status: Acute (9) Metastasis to adrenal gland Status: Chronic (10) Dehydration Status: Acute Stage IV non-small cell lung cancer, extensive metastatic disease-rapidly expanding Intracerebral mass/met with hemorrhage, vasogenic edema, and left to right shift Acute hypoxic respiratory failure/pulmonary edema Intractable abdominal pain Small bowel perforation with peritonitis-identified 03/07/17; no evidence of ongoing peritonitis on repeat CT 03/16 Right UE DVT Right sided weakness - per daughter Hypokalemia-03/13/17, resolved Hypernatremia-03/15/17, resolved Thrush-03/15/17 Dehydration, improved with supportive care Nausea/vomiting-resolved Malnutrition, severe protein calorie Weight loss Dysphagia/odynophagia Coagulopathy due to warfarin (last dose warfarin 03/06 and INR 8 on 03/07 by daughter's history) Microcytic anemia Hx p-afib/SVT Constipation Depression History of PE; warfarin - Laboratory Labs: 03/25/17 04:05 03/25/17 04:05 Prealbumin on 03/12/17-4.2; albumin ranged from 2.4-3.1 during the hospitalization - Microbiology Microbiology 03/11/17 01:34 Peripheral/Iv Start Blood Culture - Final No Growth After 5 Days 03/11/17 01:35 Peripheral/Iv Start Blood Culture - Final No Growth After 5 Days 03/11/17 03:33 Sputum, Expectorated Sputum Culture - Final No Growth After 2 Days - Radiology Radiology: Portable chest x-ray on 03/11/17: Lungs and airways: Low lung volumes. Pulmonary vascular indistinctness with increased interstitial and alveolar opacities. Pleura: No pleural effusion or pneumothorax. Heart and mediastinum: The cardiomediastinal silhouette and great vessels are within normal limits. Osseous structures and soft tissues: No acute osseous abnormality is seen. Impression: Prominent bilateral interstitial and alveolar opacities which could reflect congestive changes and pulmonary edema versus an infectious/inflammatory process in the appropriate clinical setting. Follow-up chest x-rays on 03/13 and 03/15 demonstrated pulmonary edema with some improvement on 03/15. Final chest x-ray was obtained 03/24 demonstrating normal pulmonary vasculature, left hilar density or mass, and minimal residual infiltrate/atelectasis medial left lower lobe. CT abdomen/pelvis on 03/16/17: Infrahilar right lung mass measuring 4.1 cm in diameter on axial image #8. There is a fluid attenuation nodule along the major fissure on image #12 which could represent a herniated portion of the liver containing a cyst or a cystic metastasis along the diaphragm measuring 1.2 cm in diameter. This is reportedly stable in size. There are moderate right and small left pleural effusions with compressive atelectasis. There are multiple hepatic cysts present without enhancing liver mass or bile duct dilatation. There is vicarious excretion of contrast material by the gallbladder. The spleen, pancreas and left adrenal gland are within normal limits. Large low-attenuation right adrenal mass measuring 7.7 x 6 cm on axial image #29. This is stable from the comparison report measurements. The kidneys are unremarkable. No free intraperitoneal air identified. There is a large peripherally enhancing centrally necrotic appearing mass in the central pelvis. This contains foci of gas and measures 9.3 x 8.8 x 9.1 cm in size. This is increased from 8 x 8 cm on the comparison report. Epstein catheter present within a decompressed bladder. Small amount of free pelvic fluid. There is oral contrast present within the colon. No evidence of extravasated oral contrast. Transverse colon is quite decompressed. No evidence of a small bowel obstruction. There is no oral contrast seen within the small bowel loops, limiting evaluation. Bone windows show no obvious lytic or blastic bony lesions. Impression: 1. Metastatic disease with a right infrahilar lung mass and presumably malignant pleural effusion. 2. Grossly stable size of the large right adrenal metastasis. 3. 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 This may be responsible for the gas within this lesion. The previously reported peritonitis has improved and the free intraperitoneal air has resolved in the meantime suggesting that this process has walled off or contained itself within the pelvis. There is no evidence of an acute bowel obstruction currently. Venous Doppler right upper extremity on 03/22/17: 1. 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 2. 4 cm right neck mass. Venous Doppler right lower extremity 03/23/17: No evidence of acute DVT in the right lower extremity. CT of the head without contrast on 03/25/17: There is soft tissue mass effect and acute intracranial parenchymal hemorrhage in the left temporal parietal lobe with surrounding vasogenic edema. The acute parenchymal hemorrhage measures 2.5 x 2.7 x 3.1 cm. There is associated complete effacement of the frontal and occipital horns of the left lateral ventricle and the third ventricle with [id number] midline shift estimated at 14 mm. There is associated mild dilatation of the right lateral ventricle suggesting associated obstructive hydrocephalus. This finding is most consistent with subfalcine herniation. The brainstem and posterior fossa appear intact. No extra-axial masses or fluid collections are seen. The bony calvarium appears intact showing no fractures or focal destructive lesions. There is moderate-sized air-fluid level in the right maxillary sinus and there are small air-fluid levels versus mild mucosal thickening in the left sphenoid sinus. The remaining visualized paranasal sinuses are clear as are the mastoid air cells. IMPRESSION: 1. There is soft tissue mass effect and acute intracranial hemorrhage with surrounding vasogenic edema in the left temporal parietal lobe. There is associated effacement of the frontal and occipital horns of the left lateral ventricle as well as the third ventricle and left to right midline shift estimated at 14 mm consistent with subfalcine herniation. 2. Right maxillary and left sphenoid sinusitis as described. History of Present Illness HPI: 56-year-old male presents to the emergency room after being discharged recently from [facility]. He was sent to a hospice house. Apparently at that' s location, when he awoke, decided that this is not where he wanted to be, and has not yet been prepared to stop therapy that he hopes would be curative. Attempts were made to gain readmission back to [facility], but with the re-admission process delayed by emergency room waiting time, he and family came to the hospital. Is currently rating his pain about an 8 or 9/10. His baseline or when he is feeling where it's tolerable has gotten down about a 5 or 610 with pain medicines. He was taking oral oxycodone at home, but in the hospital recently has required morphine 3 mg every 2 hours or so. He's not been able to eat well for the past 3-4 weeks per he and his daughter. He's been losing weight, and reports to me that he was "supposed to start chemo next week". He and his family have a lot of records that are with them but I have not had a chance to review those yet. He does state that he was on some antibiotics while at the hospital in [place]. He's had some brown sputum that is been coughing for the past week and 1/2 to 2 weeks. He's been on Coumadin for history of pulmonary emboli and atrial arrhythmias. His INR was quite high in the range of 8 while in [place] per the family, it' s now down to 5. He denies any bleeding. He says he hasn't had a bowel movement for the last 1-1/2-2 weeks. He says he can urinate. He vomited this evening. He denies any skin breakdown. There is a large nodule on his chest wall. He wishes to be a full code. He says he is trying to get to [place]," he wants to live, he wants to live as long as he can." I attempted to place an NG tube, patient was unable to tolerate. Some bilious liquid returned. Hospital Course This is a general summary of the patient's hospital course. For more details refer to the complete medical record. Hospital course: 03/11/17-admission 1. stage IV non-small cell lung cancer, concern with metastases that may be causing partial small bowel obstruction 2. severe protein calorie malnutrition related to above, with odynophagia 3. bronchitis with possible sepsis 4. Anemia 5. History of supraventricular tachycardia for which I think he is on Coumadin , but unclear at this time 6. Severe pain related to above. Patient's functional status appears to be incompatible with further chemotherapy at this point. Based on data currently available hospice seems appropriate. He is not ready to hear or consider this and my understanding is this has been perhaps presented to him by his oncologist as well. He has family are asking about a possible feeding tube, again not sure that this is a good idea but may or may not be a possibility. Not certainly the case with his INR 5. No recent imaging has been obtained to stage his intra-abdominal pathology that we would need to do this. I'm concerned as noted about possible small bowel obstruction. He also states he has not had a bowel movement and 1/2-2 weeks. I 've ordered a suppository and enemas to be available. For now we'll do IV fluids and IV pain medicine, and ask our day hospitalist to review the treatment options. We could consider to have his care return to [place], but clearly the family and the care team were not on the same page with what is happened here. Addendum- Attempting to obtain records from [facility] regarding what was actively being treated during recent hospitalization. Daughter reports that he may have been treated for an abdominal abscess but he was also told that he did not have an abdominal abscess. Antibiotics were initiated empirically overnight for possible bronchitis and will be continued pending record review. Will additionally need to discuss patient's status with his usual managing oncologist and if appropriate consult oncology here. This has been discussed with the patient and his daughter. At present continue hydration, pain medications, and antiemetics in addition to IV antibiotics. NG tube placement was attempted overnight to initiate nutritional supplementation however could not be passed due to development of epistaxis and anatomy of the patient's neck. Feeding tube can be readdressed although I'm not sure if there will be a good option for this patient due to widely metastatic cancer. Dobbhoff can be attempted under fluoroscopy guidance following further correction of INR. Patient has declined fentanyl patch for basal pain control. Roxanol will be initiated to offer alternative to IV narcotic. Initiate Pepcid 20 mg IV every 12 hours with plans to convert to oral administration if able to do so. Suppositories/enemas prn for constipation. I spoke with the hospitalist who is on at [facility] today but unfortunately they were unfamiliar with the patient and can offer no additional insight into patient's recent treatment. 03/12/17 Marked decompensation overnight requiring transfer to the ICU and ventilatory assistance with BiPAP to maintain oxygenation. Developments discussed with the patient's oncologist this morning-he strongly recommended DO NOT RESUSCITATE and indicated that although additional chemotherapy has been offered to the patient the patient was advised that there was little chance that this would offer any meaningful response. He was fully supportive of hospice but indicated he's been unable to bring patient/family to the point of recognizing the advanced state of his disease. Records obtained from [facility] indicating 40% increase in tumor bulk between CT 02/23/17 and 03/07/17; additionally CT on 03/07 revealed tumor invasion of the small bowel with perforation and peritonitis. While hospitalized in [place] the patient was being treated with Cipro or Levaquin and metronidazole for peritonitis. He was seen by surgical consult who advised family and patient that tumor bulk precluded surgical intervention and recommended hospice care. Patient's daughter Libby was contacted by phone-developments overnight and results of recent CT were discussed with her. Additionally I advised her of Dr. Salinas's recommendation for DO NOT RESUSCITATE. She plans to travel from [place] to [place] in 2 days and hopes to delay patient's until that time. She is aware the patient is dying and a little can be done to alter that outcome. She is contemplating CODE STATUS but was not ready to change status at time of our conversation earlier today. At present patient does not have an acute abdomen and may have walled off the bowel perforation previously identified. Antibiotics were expanded with addition of metronidazole based on [place] records. Diuresis continued for respiratory distress. Vitamin K given for coagulopathy earlier today. Family aware prognosis is poor. 03/13/17 Remains BiPAP dependent, currently with FiO2 50%. Continue diuresis and supportive care. DPOA due to arrive overnight-she is aware of severity of patient's illness and terminal nature of both acute and chronic diseases. INR stabilized after vitamin K yesterday, due to history of multiple PEs 1 mg warfarin given today. May require Lovenox pending family decision making. Suspect bowel perforation has walled off, continue antibiotics. 03/14/17 More encephalopathic than prior days-check ABG in a.m., may represent progression of disease. High flow oxygen at 15 L, recommend. Stool rest with BiPAP. Continue diuresis and supportive care. Lengthy discussion with both daughters (Libby and Sandra) both are aware of severity of patient's illness and terminal nature of his disease but report he has consistently refused DO NOT RESUSCITATE and they do not feel they should alter his decision despite worsening disease/encephalopathy. INR stabilized after vitamin K 2 days ago, warfarin resumed yesterday, 2 mg given today. 03/15/17 More encephalopathic than prior days-ABG with CO2 of 45-slightly elevated from 4 days earlier but not enough to account for lethargy demonstrated. Likely narcotic induced. High flow oxygen at 15 L, recommend.periods of rest with BiPAP. Continue diuresis and supportive care. Family committed to full code. Coagulopathy reversed with vitamin K on 03/12, warfarin resumed 03/13, 4 mg given today. Suspect bowel perforation has walled off, continue antibiotics-Levaquin/ metronidazole. Anticipate repeating CT abdomen/pelvis [address] identifying perforation at [place] on 03/07 Advised family Dobbhoff cannot be placed while on high flow oxygen and PEG tube/ surgically placed G-tube not an option with recent bowel perforation. Additionally advised family that Dobbhoff not an option outside the hospital or at a nursing facility. Continue potassium replacement, hypotonic fluids being administered due to hypernatremia. Decrease rate of diuresis given clinical improvement. Progressive anemia, reassess in a.m.-will likely need transfusion in the next day or 2. Nystatin suspension for thrush. Transfer out of ICU. 03/16/17 21:23 Patient continues to speak only with his daughters but they are interpreting his statements this afternoon as intent to discontinue active therapy. At present they're tearful and struggling with his decision but both agree he should be converted to DO NOT RESUSCITATE. At present they are unable to discontinue fluids and accordingly I've continued Lasix. Comfort care order written; I advised them that social work will see them tomorrow to discuss options of hospice consult, senior care transfer, or return to hospice house in [place]. Prior small bowel perforation appears to vault off and acute inflammatory changes have subsided-antibiotics discontinued. Given decision to focus on comfort warfarin will be discontinued. Provided there is no change in focus of care overnight I've recommended the daughters that fluids and other [id number] medications be discontinued tomorrow and I strongly recommended that they consult a hospice service to assist in patient management. 03/17/17 10:54 Patient continues to speak only with his daughters; yesterday they interpreted his wishes as stopping aggressive treatment and moving to a comfort care approach; this was done overnight. This morning they no longer feel that way and want to continue full care. He remains DO NOT RESUSCITATE. Will resume fluids per their request but decrease to 50 cc/hour and continue lasix today to achieve some balance. Social work did visit with them this morning as planned; currently the plan is to continue full care through the weekend and look toward facility DC in [place] on Sunday. Will continue to discuss goals of care. Prior small bowel perforation appears to vault off and acute inflammatory changes have subsided-antibiotics discontinued 03/16 and will monitor off of them. Continue to hold warfarin today but will check CBC, INR, renal panel in AM for surveillance and then discuss further. Will hold on planned hospice consult acutely and continue to discuss plans of care. 03/18/17 13:37 Patient continues to speak only with his daughters; on 03/16 they interpreted his wishes as stopping aggressive treatment and moving to a comfort care approach; this was done overnight on Sunday. In the AM on 03/17 they no longer felt that way and wanted to continue full care. --> Hospice consult cancelled, in discussion with CM will plan for facility DC to [place] tomorrow for ongoing care He remains DO NOT RESUSCITATE. Fluids resumed per daughters' request on 03/17 but more edematous today, labs stable, no indication for further IVF and held this afternoon. Social work did visit with them 03/17 as planned; will reevaluate in AM regarding DC planning. Prior small bowel perforation appears to vault off and acute inflammatory changes have subsided-antibiotics discontinued 03/16 and monitoring off them, no leukocytosis, stable overall. Continue to hold warfarin due to limited po intake and terminal illness. 03/19/17 Daughters of requested full code and resumption of low-volume IV fluids due to decreased urine output. Discharge planning underway-limited capacity available in [place] at present. 03/20/17 Case management looking at discharge options in [place], declined by multiple facilities. Trial CPAP with inspiratory pressure [address] BiPAP per daughter's request -discussed with RT. 03/21/17 Tolerated CPAP yesterday afternoon, on nasal cannula currently. Afrin when necessary for epistaxis (secondary to nasal suctioning), Thorazine when necessary for hiccups. Continue supportive measures, efforts underway to identify discharge facility. 03/22/17 12:44 Family or patient will not wake up long enough to speak with me on my 3 visits into the room so far today. Continue to hold warfarin due to limited po intake and terminal illness. INR slightly higher today compared to 3 days ago, last dose warfarin was 03/16 Discussed with case management - they recommend palliative care consult and spoke of Ethics committee. After discussion with Dr. Vila, I opted to try palliative care discussion again prior to any involvement from ethics committee in hopes that we can become clearer on the family and patient's goals. Will doppler right arm per patient request. 03/23/17 15:56 Patient continues to speak only with his daughters; full code resumed 03/19 per patient request to live until [place]. Case management looking at discharge options in/near [place], declined by multiple facilities. Prior small bowel perforation appears to walled off and acute inflammatory changes have subsided-antibiotics discontinued 03/16 and monitoring off them, no leukocytosis, stable overall. Started full dose lovenox in light of right arm DVT, INR had been climbing due to malnutrition. Monitor for bleeding. Doppler of right leg negative. Daughter agrees that MRI of brain would be futile. Dr. Miguel consult appreciated - we have more clear goals, albeit somewhat unreasonable goals. They would like a facility in which he can be a full code, have IVF, and potassium replacement until [place]. The daughter seems aware that he may decline prior to [place]. We suggested they move [place] with the kids to an earlier time. They note that after [place], he/they would be more agreeable to the recommended course of care. 03/24/17 Recurrent tachycardia today without clear symptoms, urine output down and hemoglobin up-fluid bolus given, continue to monitor. Renal function has not shown evidence of deterioration although protein masses poor. Fluid balance has been relatively even recent days but weight continues to decline. Continue IV fluids at 75 mL per hour (increased from 40 mL per hour) after fluid bolus. Has unfortunately developed pulmonary edema with fluid resuscitation previously. Patient speak only with his daughters and is less verbal with them now than in the past; full code resumed 03/19 per patient request to live until [place]. Sandra reports right sided numbness involving face, arm, leg. Increased adenopathy in the right neck with no nodes that Sandra reports were not there previously-nodes are hard and fixed. Patient has known small brain metastases from the past and I'm concerned that he may have increased CHIEF CRUISER metastatic disease as well. CT head with contrast planned tomorrow after additional hydration. INR subtherapeutic today, new DVT identified right upper extremity 2 days ago and likely result of venous occlusion secondary adenopathy. Warfarin dose given today; resume Lovenox pending therapeutic INR. 03/25/17 CT confirms suspicion of some increased CHIEF CRUISER disease with hemorrhagic conversion , large amount of edema and 14 mm L->R shift with compression of the ventricles. As noted previously this is been discussed with the patient's daughters and the critical nature of this finding reviewed with them. As of my last discussion with them they remain undecided about changing CODE STATUS but have elected not to pursue acute interventions with steroids or surgical consultation regarding the hemorrhage. They are aware that this is a neurosurgical emergency but that the underlying malignancy and its progressive course make the patient a poor surgical candidate and that I do not recommend consideration of neurosurgical evaluation. In light of edema rate of fluids have been decreased. I strongly recommended purely palliative course. Oral medications discontinued except nystatin to coat the patient's tongue and Roxanol. Daughters declined IV Decadron for brain edema as pt has less pain now than he did previously and they are concerned that if more alert pain will return. Imaging suggests high risk of herniation in the near future. Family is aware that I cannot treat thromboembolic disease and CHIEF CRUISER hemorrhage jointly; all anticoagulants have been discontinued. Continue supportive care the patient/family. Patient converted patient to DO NOT RESUSCITATE later in the day after family collectively met and celebrated [place] with the patient and grandchildren in the room. 03/26/17 Family report speech is been a little more mumbled overnight and they're having more difficulty understanding him; he continues to try to drink water but coughs whenever he does so. He has not required deep suctioning but they would like to initiate medication to minimize secretions to avoid suctioning if possible. Sandra reports patient describes pain about an hour after dose of oral Roxanol and asked if dose could be increased. Patient did not respond verbally to me and appeared to be resting comfortably at time of my evaluation. Lungs were remarkably clear today anteriorly and respirations were nonlabored. Right upper extremity remains flaccid, there is no spontaneous movement in the right lower extremity but the patient is spontaneously moving his left upper and left lower extremities. Patient has had progressive decline through the hospital course with evidence of increasing adenopathy in the neck followed by development of right upper extremity DVT. Abdomen seems to be less tender than when he arrived. 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 There is evidence of early subfalcine herniation on the CT of 03/25. The patient tolerates minimal oral intake and developed pulmonary edema with fluid resuscitation for dehydration early in the hospital course. He has received maintenance IV fluids until 03/25 when fluids were discontinued due to vasogenic edema and family's acceptance of the terminal nature of his disease process. Family met with a outbound call center representative from [facility] who [facility] [place]. Discharge orders have been prepared and the patient will transferred there later this afternoon for terminal care. Time spent with patient: discharge greater than 30 minutes Discharge Plan - Med Rec/Dispo Prescriptions: New Albuterol Neb (0.083%) [Proventil Neb (0.083%)] 2.5 mg AEROSOL RTQID PRN each PRN Reason: Shortness Of Air/Wheezing Bisacodyl Supp [Dulcolax] 10 mg RECTALLY DAILY PRN suppositor PRN Reason: Constipation /Stool Softening ChlorproMAZINE INJ [Thorazine] 25 mg IV Q4HR PRN ampul PRN Reason: Hiccups Hyoscyamine SL tab [Levsin] 0.125 mg SL Q4HR PRN tab.subl PRN Reason: Secretions Morphine Sulfate Inj 2 - 4 mg IVP Q2H PRN syringe PRN Reason: baseline pain control Morphine Sulfate Oral Liq [Roxanol Oral Liq] 10 - 20 mg SL Q1H PRN syringe PRN Reason: Pain Oxymetazoline Nasal [place] [Afrin Nasal [place]] 2 spray EA NOSTRIL BID PRN bottle PRN Reason: Nasal Congestion Scopolamine 1.5MG Patch [Transderm-Scop] 1 each TRANSDERMA Q3D PRN #1 patch.td.3 PRN Reason: Secretions Swizzle Solution 5Ml [Lidocaine/Maalox/Benadryl Soln] 5 ml PO Q4H PRN ml PRN Reason: Discomfort Heparin Flush 20 unit IV PRN PRN ml PRN Reason: PICC port not in use. LORazepam INJ [Ativan Inj] 0.5 mg IVP Q4H PRN vial PRN Reason: Anxiety wearing bipap Ondansetron Inj [Zofran] 4 mg IVP Q4H PRN vial PRN Reason: Nausea &/Or Vomiting Saline Flush [IV Flush] 10 - 80 ml IVF PRN PRN syringe PRN Reason: PICC flush Continue Prochlorperazine Maleate [Compazine] 10 mg PO Q6-8HPRN PRN PRN Reason: Nausea PredniSONE [Deltasone] 1 tab PO DAILY Ondansetron HCl 8 mg PO Q6-8HPRN Discontinued Oxycodone *IR* [Roxicodone *Ir*] 1 tab PO Q4H PRN PRN Reason: Pain Metoprolol Tartrate [Lopressor] 50 mg PO BID Warfarin Sodium [Warfarin Sodium] 7.5 mg PO DAILY Folic Acid [Folate] 1 mg PO DAILY - Disposition 50 Discharged To Hospice-Home
[2017-03-26] MEDS ORDERED: Hyoscyamine 0.125 MG SL tab SL SCH (16:00)
[2017-03-26 16:09] VITALS: PULSE 113; O2SAT 96
--- NOTE | 2017-03-26 17:03 | Extended Care Facility Orders ---
Admission Orders Admit to:: Hospice, Other Allergies/Adverse Reactions: Allergies Penicillins Allergy (Verified 03/10/17 23:49) Admitting Diagnosis: End Stage lung cancer Admitting Physician: Barbie Vila MD Attending Physician: Barbie Vila MD Code Status: DO NOT RESUSCITATE Anticiapted Length of Stay: 30 days or less Rehab Potential: poor Rehab Prognosis: poor Diet: Full Liquid Diet Halfway Certification: I certify that SNF services are required to be given on an Inpatient basis because of the patients need for group home care on a continuing basis for the condition(s) for which he/she received inpatient hospital services prior to his/her transfer to the SNF. SNF inpatient care is necessary for the following reasons Indication for Halfway: Not Applicable - Additional Information In Event of Arrest: Do Not Start CPR Additional Orders: medical care will be transferred to [facility] medical technicians. Admit to inpatient hospice care at [facility]
[2017-03-29] MEDS ORDERED: SCOPOLAMINE PATCH REMOVAL TD SCH (12:45)
== END 2017-03-26 19:03 | disposition hospice, inpatient (51) | DRG 180 ==
LOC: ED 23:13 → SUATTDRO 03-11 01:33 → MED 03-11 01:33 → CCU 03-11 23:44 → MED 03-15 12:00
PROVIDERS: ADMIT Pediatrics; ATTEND Internal Medicine